=== PATIENT | female | born 1950 | race Caucasian/White ===

== ENCOUNTER 2016-07-21 16:07 | Outpatient (RCR) | payer MEDICARE, OTHER ==
[~2016-07-21 16:07] MED LIST: ACHD5005 PO; ACYC800T PO; ALPR.25T; ALPR1T PO; AMLO2.5T PO; ARIP10TA2 PO; ASP325TEC PO; ASPI-84 PO; BACL10TA PO; BISO1TAB3 PO; BISO1TAB39 PO; BPR150TCR; BUPR100T8 PO; BUPR150T6; BUPR200T PO; Bentyl; CEPHALEXIN; CHOL400C8 PO; CITA-105 PO; CITA40TA11 PO; CITA40TA19; CITA40TA19 PO; CLON1TAB3 PO; CLPD75T PO; CYAN500L PO; CYCL10TA9 PO; DESV100T PO; DICY10CA26 PO; DICY20TA57 PO; ESCT10T; FLAX100011 PO; GABA-531 PO; GABA600T2 PO; GBPN600T; GBPN600T PO; HYDR200T46 PO; HYDROXYCHLOROQUINE PO; IBP800T PO; IBUP-30 PO; IRB150T; ISM30TCR; L-ME15TA PO; LOSA100T28 PO; MAGN400C PO; MELA1TAB16 PO; NEBI5TAB8 PO; NF-DOCO10C TP; NITR-65; NTR.4SL SL; OLME20TA21 PO; OMEG1CAP51 PO; PREN-93 PO; SIMV20TA3 PO; SIMV40TA2 PO; SULF-222 PO; SULF500T7 PO; TRM50T PO; TRZ100T PO; UBID100C17 PO; VILA20TA PO; ZLP10T PO; [UNRECOGNIZED DRUG - OTHER]
== END 2016-10-19 | disposition home or self-care (01) ==
LOC: LAB 16:07
PROVIDERS: ATTEND Family Medicine
DX: R19.7 Diarrhea, unspecified (principal)
CPT/HCPCS: 87045; 87046

== ENCOUNTER → 2016-08-04 | Outpatient (CLI) | payer MEDICARE, OTHER ==
[2016-08-04 16:40] LABS: BASOPHILS % (AUTO) 0 % (0-10); EOSINOPHILS # (AUTO) 0.2 10^3/uL (0.0-0.3); EOSINOPHILS % (AUTO) 3 % (0-10); LYMPHOCYTES # (AUTO) 1.4 X 10^3 (1.0-4.0); LYMPHOCYTES % (AUTO) 16 % (12-44); MEAN CORPUSCULAR HEMOGLOBIN 33 PG (25-34); MEAN CORPUSCULAR HGB CONC 34 G/DL (32-36); MEAN CORPUSCULAR VOLUME 97 FL (80-99); MEAN PLATELET VOLUME 8.6 FL (7.4-10.4); MONOCYTES # (AUTO) 0.7 X 10^3 (0.0-1.0); MONOCYTES % (AUTO) 9 % (0-12); NEUTROPHILS # (AUTO) 6.2 X 10^3 (1.8-7.8); NEUTROPHILS % (AUTO) 72 % (42-75); PLATELET COUNT 264 10^3/uL (130-400); RED BLOOD COUNT 3.66 10^6/uL (4.35-5.85); RED CELL DISTRIBUTION WIDTH 12.6 % (10.0-14.5); WHITE BLOOD COUNT 8.5 10^3/uL (4.3-11.0)
[2016-08-04 16:56] LABS: CREATININE SERUM 0.82 MG/DL (0.60-1.30); hs C REACTIVE PROTEIN 0.2 MG/DL (0.00-0.50)
[2016-08-04 16:58] LABS: ERYTHROCYTE SEDIMENTATION RATE 6 MM/HR (0-30)
== END ==
LOC: LAB 16:23
DX: Z51.81 Encounter for therapeutic drug level monitoring (principal); M19.90 Unspecified osteoarthritis, unspecified site; Z79.899 Other long term (current) drug therapy
CPT/HCPCS: 36415; 82565; 84460; 85025; 85652; 86141

== ENCOUNTER → 2016-08-11 | Outpatient (CLI) | payer MEDICARE, OTHER | LOC: LAB 11:53 | PROVIDERS: ATTEND Family Medicine | DX: R05 Cough (principal); J34.89 Other specified disorders of nose and nasal sinuses; R19.7 Diarrhea, unspecified ==

== ENCOUNTER 2016-08-12 16:15 | Outpatient (RCR) | payer MEDICARE, OTHER | END 2016-11-10 | disposition home or self-care (01) | LOC: LAB 16:15 | PROVIDERS: ATTEND Family Medicine | DX: R19.7 Diarrhea, unspecified (principal) | CPT/HCPCS: 87045; 87046; 87324; 87449 ==

== ENCOUNTER → 2016-08-12 | Outpatient (CLI) | payer MEDICARE, OTHER ==
--- NOTE | 2016-08-12 17:25 | Diagnostic Imaging Report ---
INDICATION: Cough and wheezing. PA and lateral chest obtained at 5:06 p.m. and compared to 01/15/16. FINDINGS: Heart and mediastinal silhouette are normal in appearance. The lungs are clear. There is no pneumothorax or pleural fluid. IMPRESSION: Negative chest. Dictated by: Dictated on workstation # [id number]
--- NOTE | 2016-08-12 18:00 | Diagnostic Imaging Report ---
INDICATION: Sinus pressure and pain. Three views of the sinuses are obtained. FINDINGS: The frontal sinuses appear clear. Ethmoid air cells appear clear. The maxillary sinuses are clear. Sphenoid sinuses are also clear. There is no overt bony abnormality. IMPRESSION: Negative sinus series. Dictated by: Dictated on workstation # [id number]
== END ==
LOC: RAD 16:24
PROVIDERS: ATTEND Family Medicine
DX: R05 Cough (principal); J34.89 Other specified disorders of nose and nasal sinuses
CPT/HCPCS: 70220; 71020

== ENCOUNTER → 2016-09-01 | Outpatient (CLI) | payer MEDICARE, OTHER ==
[2016-09-01 10:05] LABS: BASOPHILS % (AUTO) 0 % (0-10); EOSINOPHILS # (AUTO) 0.1 10^3/uL (0.0-0.3); EOSINOPHILS % (AUTO) 2 % (0-10); LYMPHOCYTES # (AUTO) 1.6 X 10^3 (1.0-4.0); LYMPHOCYTES % (AUTO) 29 % (12-44); MEAN CORPUSCULAR HEMOGLOBIN 32 PG (25-34); MEAN CORPUSCULAR HGB CONC 34 G/DL (32-36); MEAN CORPUSCULAR VOLUME 94 FL (80-99); MEAN PLATELET VOLUME 8.9 FL (7.4-10.4); MONOCYTES # (AUTO) 0.6 X 10^3 (0.0-1.0); MONOCYTES % (AUTO) 11 % (0-12); NEUTROPHILS # (AUTO) 3.1 X 10^3 (1.8-7.8); NEUTROPHILS % (AUTO) 58 % (42-75); PLATELET COUNT 267 10^3/uL (130-400); RED BLOOD COUNT 3.96 10^6/uL (4.35-5.85); RED CELL DISTRIBUTION WIDTH 12.7 % (10.0-14.5); WHITE BLOOD COUNT 5.4 10^3/uL (4.3-11.0)
[2016-09-01 10:23] LABS: ALANINE AMINOTRANSFERASE 18 U/L (0-55); ALBUMIN 3.7 G/DL (3.2-4.5); ANION GAP 7 MMOL/L (5-14); ASPARTATE AMINO TRANSFERASE 25 U/L (5-34); BILIRUBIN,TOTAL 0.6 MG/DL (0.1-1.0); BLOOD UREA NITROGEN 13 MG/DL (7-18); BUN/CREATININE RATIO 16; CALCIUM 8.8 MG/DL (8.5-10.1); CARBON DIOXIDE 26 MMOL/L (21-32); CHLORIDE 103 MMOL/L (98-107); CREATININE SERUM 0.82 MG/DL (0.60-1.30); GFR ESTIMATED > 60; GLUCOSE 94 MG/DL (70-105); POTASSIUM 3.9 MMOL/L (3.6-5.0); SODIUM 136 MMOL/L (135-145); TOTAL PROTEIN 5.9 G/DL (6.4-8.2)
== END ==
LOC: LAB 09:39
PROVIDERS: ATTEND Family Medicine
DX: R19.7 Diarrhea, unspecified (principal)
CPT/HCPCS: 36415; 80053; 84443; 85025

== ENCOUNTER → 2017-01-07 | Outpatient (CLI) | payer MEDICARE, OTHER ==
[2017-01-07 16:04] LABS: MEAN PLATELET VOLUME 8.8 FL (7.4-10.4); RED BLOOD COUNT 3.47 10^6/uL (4.35-5.85); RED CELL DISTRIBUTION WIDTH 13.1 % (10.0-14.5); WHITE BLOOD COUNT 3.8 10^3/uL (4.3-11.0)
[2017-01-07 16:21] LABS: CREATININE SERUM 0.82 MG/DL (0.60-1.30); hs C REACTIVE PROTEIN 0.26 MG/DL (0.00-0.50)
== END ==
LOC: LAB 15:14
DX: M19.90 Unspecified osteoarthritis, unspecified site (principal); Z79.899 Other long term (current) drug therapy; Z51.81 Encounter for therapeutic drug level monitoring
CPT/HCPCS: 36415; 82565; 84460; 85027; 85652; 86141

== ENCOUNTER → 2017-03-30 | Outpatient (CLI) | payer MEDICARE, OTHER ==
[2017-03-30 13:51] LABS: BASOPHILS % (AUTO) 0 % (0-10); EOSINOPHILS # (AUTO) 0.1 10^3/uL (0.0-0.3); EOSINOPHILS % (AUTO) 1 % (0-10); LYMPHOCYTES # (AUTO) 1.3 X 10^3 (1.0-4.0); LYMPHOCYTES % (AUTO) 18 % (12-44); MEAN CORPUSCULAR HEMOGLOBIN 33 PG (25-34); MEAN CORPUSCULAR HGB CONC 34 G/DL (32-36); MEAN CORPUSCULAR VOLUME 97 FL (80-99); MEAN PLATELET VOLUME 9.1 FL (7.4-10.4); MONOCYTES # (AUTO) 0.7 X 10^3 (0.0-1.0); MONOCYTES % (AUTO) 10 % (0-12); NEUTROPHILS # (AUTO) 5.3 X 10^3 (1.8-7.8); NEUTROPHILS % (AUTO) 72 % (42-75); PLATELET COUNT 280 10^3/uL (130-400); RED BLOOD COUNT 3.77 10^6/uL (4.35-5.85); RED CELL DISTRIBUTION WIDTH 14.3 % (10.0-14.5); WHITE BLOOD COUNT 7.4 10^3/uL (4.3-11.0)
[2017-03-30 14:13] LABS: ALANINE AMINOTRANSFERASE 17 U/L (0-55); ANION GAP 6 MMOL/L (5-14); ASPARTATE AMINO TRANSFERASE 18 U/L (5-34); BILIRUBIN,TOTAL 1.3 MG/DL (0.1-1.0); BLOOD UREA NITROGEN 13 MG/DL (7-18); BUN/CREATININE RATIO 17; CALCIUM 9.2 MG/DL (8.5-10.1); CARBON DIOXIDE 31 MMOL/L (21-32); CHLORIDE 98 MMOL/L (98-107); CHOLESTEROL 187 MG/DL (< 200); CREATININE SERUM 0.76 MG/DL (0.60-1.30); DIRECT LDL 97 MG/DL (1-129); GFR ESTIMATED > 60; GLUCOSE 92 MG/DL (70-105); MAGNESIUM 2.1 MG/DL (1.8-2.4); POTASSIUM 4.1 MMOL/L (3.6-5.0); SODIUM 135 MMOL/L (135-145); TOTAL PROTEIN 6.3 GM/DL (6.4-8.2); TRIGLYCERIDES 78 MG/DL (<150); VLDL CHOLESTEROL 16 MG/DL (5-40)
[2017-03-30 14:32] LABS: THYROID STIMULATING HORMONE 3.11 UIU/ML (0.35-4.94)
== END ==
LOC: LAB 13:28
PROVIDERS: ATTEND Internal Medicine Cardiovascular Disease
DX: E78.4 Other hyperlipidemia (principal); I25.10 Atherosclerotic heart disease of native coronary artery without angina pectoris; I65.23 Occlusion and stenosis of bilateral carotid arteries; I10 Essential (primary) hypertension; R42 Dizziness and giddiness
CPT/HCPCS: 36415; 80053; 80061; 83735; 84443; 85025

== ENCOUNTER → 2017-03-30 | Outpatient (CLI) | payer MEDICARE, OTHER ==
[2017-03-30 14:30] LABS: MEAN PLATELET VOLUME 9.5 FL (7.4-10.4); RED BLOOD COUNT 3.81 10^6/uL (4.35-5.85); RED CELL DISTRIBUTION WIDTH 14.3 % (10.0-14.5); WHITE BLOOD COUNT 7.9 10^3/uL (4.3-11.0)
[2017-03-30 14:36] LABS: CREATININE SERUM 0.76 MG/DL (0.60-1.30); hs C REACTIVE PROTEIN 0.06 MG/DL (0.00-0.50)
== END ==
LOC: LAB 14:13
DX: Z51.81 Encounter for therapeutic drug level monitoring (principal); M19.90 Unspecified osteoarthritis, unspecified site; Z79.899 Other long term (current) drug therapy
CPT/HCPCS: 36415; 82565; 84460; 85027; 85652; 86141

== ENCOUNTER → 2017-03-30 | Outpatient (CLI) | payer MEDICARE, OTHER ==
[~2017-03-30] MED LIST changes: +CATHETER FLUSH 10 ML SYR IV PRN; +REGADENOSON 0.4 MG/5 ML SYR (LEXISCAN) IV ONE
[2017-03-30 13:02] VITALS: BP 177/75
--- NOTE | 2017-03-31 18:55 | STRESS TEST ---
DATE OF SERVICE: 03/30/2017 RESTING AND POST REGADENOSON TECHNETIUM-99M TETROFOSMIN SPECT CT IMAGING ORDERING PHYSICIAN: ALINA Aviles PRIMARY PHYSICIAN: Dr. Frye. OTHER PHYSICIAN: Dr. Galan. CLINICAL DIAGNOSIS: Coronary artery disease. Baseline images were carried out after injection of 10.03 mCi of technetium-99m Tetrofosmin. This was followed by 0.4 mg regadenoson and 30 mCi of technetium-99m Tetrofosmin for stress imaging. The electrocardiogram showed sinus rhythm with nonspecific ST abnormality, which was subtle and which persisted throughout the study. The patient tolerated the procedure well and did not report significant symptoms. Review of images at rest and following stress does not indicate any significant perfusion defects consistent with myocardial ischemia or infarction. Gated images show normal global left ventricular systolic function with normal regional wall motion. Left ventricular ejection fraction is calculated to be 69%. Left ventricular end diastolic volume is 49 mL. TID is absent (1.1). CONCLUSIONS: 1. No evidence of any significant myocardial ischemia or infarction. 2. Normal regional wall motion. 3. Normal global left ventricular systolic function with a calculated ejection fraction of 69%. 4. Normal left ventricular cavity size. Job ID: [id number] DocumentID: [id number] Dictated Date: 03/31/2017 09:21:01 Protective Signal Installer Helper Date: 03/31/2017 09:43:25 Dictated By: CHAVEZ GALAN MD, MA, FACP, FACC,
== END ==
LOC: CARD 11:42
PROVIDERS: ATTEND Nurse Practitioner Family
DX: I25.10 Atherosclerotic heart disease of native coronary artery without angina pectoris (principal); I10 Essential (primary) hypertension; R07.89 Other chest pain
CPT/HCPCS: 78452; 93017

== ENCOUNTER 2017-05-22 08:05 | Observation (INO) | payer MEDICARE, OTHER ==
[~2017-05-22] VITALS: Ht 167.6 cm; Wt 87.5 kg
[~2017-05-22 08:05] MED LIST changes: -CATHETER FLUSH 10 ML SYR IV PRN; -REGADENOSON 0.4 MG/5 ML SYR (LEXISCAN) IV ONE
--- OUTSIDE RECORDS SUMMARY | 2017-05-22 08:12 | XMS REPORT | Continuity of Care Document ---
Author Author [employer] Organization [facility] Address Unknown Phone Unavailable Care Team Providers Care State Federal Relations Deputy Director Name Role Phone [employer] Unavailable Unavailable Problems Medications Allergies, Adverse Reactions, Alerts Immunizations Results Vital Signs Encounters Location Location Details Encounter Type Encounter Number Reason For Visit Attending Provider ADM Date DC Date Status Source OUTPATIENT [id number] RON MENSAH 11/27/20142014 Active [facility] OUTPATIENT [id number] RON MENSAH 01/31/20152014 Active [facility] OUTPATIENT [id number] BRAYAN AREVALO 04/05/20152014 Active [facility] OUTPATIENT [id number] Sarah FERREIRA 06/19/2015 06/19/2015 Active [facility] OUTPATIENT [id number] BRAYAN AREVALO 09/15/20162016 Active [facility] OUTPATIENT [id number] ROBBY GALLEGOS 02/11/2017 Active [facility] OUTPATIENT [id number] SALLY DORAN 03/29/2017 Active [facility] O RON MENSAH Active [facility] OP SURGERY [id number] BRIGETTE DALE Active [facility] Procedures Plan of Care Social History Assessment and Plan Family History Advance Directives Functional Status
--- OUTSIDE RECORDS SUMMARY | 2017-05-22 08:13 | XMS REPORT | Encounter Summary ---
Author Author [facility] Organization [facility] Address Unknown Phone Unavailable Care Team Providers Care Supply Chain Associate Name Role Phone PCP Unavailable Reason for Visit * Reason Comments Joint Pain Encounter Details Date Type Department Care Team Description 03/18/2017 Procedure visit [facility] Todd Howell MD Trochanteric bursitis of Physicians - Internal [address] right hip;Shoulder Medicine [place] 2025 arthritis;Bursitis [place] [address] [place] [address] [address] MED [phone] [place] [address] Social History Tobacco Use Types Packs/Day Years Used Date Never Smoker Smokeless Tobacco: Never Used Alcohol Use Drinks/Week oz/Week Comments No 0 Standard 0.0 drinks or equivalent Sex Assigned at Date Recorded Not on file as of this encounter Last Filed Vital Signs Vital Sign Reading Time Taken Blood Pressure 176/74 03/18/2017 1:19 PM PRO[employer]IVE [employer] Pulse 66 03/18/2017 1:19 PM PRO[employer]IVE [employer]ER AND [employer] Temperature 36.6 C (97.8 F) 03/18/2017 1:19 PM [employer]IVE [employer] AND [employer]TER Respiratory Rate 16 03/18/2017 1:10 PM [employer]IVE [employer] AND [employer] Oxygen Saturation - - Inhaled Oxygen - - Concentration Weight 86.2 kg (190 lb) 03/18/2017 1:10 PM [employer]IVE [employer] AND [employer]TER Height 167.6 cm (5' 5.98") 03/18/2017 1:10 PM [employer] AND [employer]TER Body Mass Index 30.68 03/18/2017 1:10 PM PROGRESSIVE ASSEMBLER AND FITTER in this encounter Instructions * Patient Instructions - Niharika Valadez MD - 03/18/2017 2:16 PM PRO[employer]IVE [employer]TER Please review the post injection handout. Rest the injected area for 48 hours. in this encounter Progress Notes * Niharika Valadez MD - 03/18/2017 1:00 PM PRO[employer]IVE [employer]TER Formatting of this note may be different from the original. Date of Service: 03/18/2017 Date of last Rheumatology encounter: 03/11/2017 Subjective: Margarette De Dios is a 66 y.o. 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 She has had moderate to severe polyarticular joint pain for the past month. No chills or fever. No anticoagulation. History of Present Illness Occupation: retired [employer] Questionnaire: 10 cm VAS (0=very well; 10.0=very poorly): Pt global: 5 Joint pain: 7 Fatigue: 9. Disability Index (Best=0.0; Worse=3.0): 1.5 Pt satisfaction (0-4; 0=very satisfied; 4=very dissatisfied): 3 Current rheumatic drugs: Methotrexate 20 mg weekly, folic acid daily, SSZ 1500 mg BID and HCQ 200 mg BID Taking antirheumatic meds as prescribed: Yes Review of Systems Constitutional: Positive for fatigue. Musculoskeletal: Positive for arthralgias. Symptoms all other systems reviewed and are negative. Objective: ALPRAZolam (XANAX) 1 mg PO tablet Take 1 mg by mouth as Needed. anxiety amLODIPine (NORVASC) 2.5 mg tablet Take 1 Tab by mouth daily. (Patient taking differently: Take by mouth twice daily. 2.5mg every morning and 1.25mg every night) aspirin EC 81 mg tablet Take 81 mg by mouth at bedtime daily. baclofen (LIORESAL) 10 mg tablet Take 2 Tabs by mouth three times daily. bisoprolol/hydrochlorothiazide (ZIAC) 5/6.25 mg tablet Take 1 Tab by mouth daily. citalopram (CELEXA) 40 mg tablet Take 40 mg by mouth Daily. colestipol (COLESTID) 1 gram tablet Take 1 g by mouth. dicyclomine (BENTYL) 10 mg capsule Take 10 mg by mouth As Needed. As directed folic acid (FOLVITE) 1 mg tablet Take 1 Tab by mouth daily. gabapentin (NEURONTIN) 600 mg tablet Take 2 Tabs by mouth Three Times Daily. hydroxychloroquine (PLAQUENIL) 200 mg tablet Take 1 Tab by mouth twice daily. Take with food. losartan(+) (COZAAR) 100 mg tablet Take 100 mg by mouth at bedtime daily. methotrexate sodium (RHEUMATREX) 2.5 mg tablet Take 8 tablets by mouth every 7 days. nitrofurantoin SR (MACROBID) 100 mg capsule Take 100 mg by mouth daily after breakfast. nitroglycerin (NITROSTAT) 0.4 mg tablet take 1 tablet under tongue every 5 minutes for chest pain, call 911 if no relief after 3 tablets PROPYLENE GLYCOL/PEG 400/PF (SYSTANE (PF) OP) Place into or around eye(s). simvastatin (ZOCOR) 20 mg tablet Take 1 Tab by mouth at bedtime daily. sulfaSALAzine (AZULFIDINE) 500 mg tablet TAKE THREE TABLETS BY MOUTH TWO TIMES A DAY WITH FOOD Vitals: 03/18/17 1310 03/18/17 1319 BP: 161/62 176/74 Pulse: 69 66 Resp: 16 Temp: 36.6 C (97.8 F) 36.6 C (97.8 F) TempSrc: Oral Oral Weight: 86.2 kg (190 lb) Height: 167.6 cm (65.98") Body mass index is 30.68 kg/(m^2)., Discussed patient's BMI with her. The body mass index is 30.68 kg/(m^2). and falls within the category of Obesity 1 (30 to <35); specialist visit only, referred back to Primary Care Provider for follow up. Wt Readings from Last 3 Encounters: 03/18/17 86.2 kg (190 lb) 03/11/17 87.5 kg (192 lb 12.8 oz) 02/09/17 91.6 kg (202 lb) ] Physical Exam Constitutional: She appears well-developed and well-nourished. HENT: Head: Normocephalic. Mouth/Throat: Oropharynx is clear and moist. Cardiovascular: Normal rate, regular rhythm and normal heart sounds. Pulmonary/Chest: Effort normal and breath sounds normal. Abdominal: Soft. Lymphadenopathy: She has no cervical adenopathy. She has no axillary adenopathy. Homunculus: No annotated images are attached to the encounter. TTP to right hip > left Limited ROm with internal and external rotation of right shoulder Assessment: 1. Trochanteric bursitis of right hip methylprednisolone acetate (DEPO-MEDROL) 80 mg/mL 80 mg, lidocaine PF 1% (10 mg/mL) 20 mg injectable mixture mepivacaine (PF)(+) (CARBOCAINE; POLOCAINE) injection 8 mL methylprednisolone acetate (DEPO-MEDROL) 80 mg/mL 80 mg, lidocaine PF 1% (10 mg /mL) 20 mg injectable mixture methylprednisolone acetate (DEPO-MEDROL) 80 mg/mL 160 mg, lidocaine PF 1% (10 mg/mL) 40 mg injectable mixture ARTHROCENTESIS-CLINIC DC ARTHROCENTESIS ASPIR&/INJ MAJOR JT/BURSA W/O US DC ARTHROCENTESIS ASPIR&/INJ MAJOR JT/BURSA W/O US DC ARTHROCENTESIS ASPIR&/INJ MAJOR JT/BURSA W/O US 2. Shoulder arthritis methylprednisolone acetate (DEPO-MEDROL) 80 mg/mL 80 mg, lidocaine PF 1% (10 mg/mL) 20 mg injectable mixture mepivacaine (PF)(+) (CARBOCAINE; POLOCAINE) injection 8 mL methylprednisolone acetate (DEPO-MEDROL) 80 mg/mL 80 mg, lidocaine PF 1% (10 mg /mL) 20 mg injectable mixture methylprednisolone acetate (DEPO-MEDROL) 80 mg/mL 160 mg, lidocaine PF 1% (10 mg/mL) 40 mg injectable mixture ARTHROCENTESIS-CLINIC DC ARTHROCENTESIS ASPIR&/INJ MAJOR JT/BURSA W/O US DC ARTHROCENTESIS ASPIR&/INJ MAJOR JT/BURSA W/O US DC ARTHROCENTESIS ASPIR&/INJ MAJOR JT/BURSA W/O US Right IA 3. Bursitis of right shoulder methylprednisolone acetate (DEPO-MEDROL) 80 mg/ mL 80 mg, lidocaine PF 1% (10 mg/mL) 20 mg injectable mixture mepivacaine (PF)(+) (CARBOCAINE; POLOCAINE) injection 8 mL methylprednisolone acetate (DEPO-MEDROL) 80 mg/mL 80 mg, lidocaine PF 1% (10 mg /mL) 20 mg injectable mixture methylprednisolone acetate (DEPO-MEDROL) 80 mg/mL 160 mg, lidocaine PF 1% (10 mg/mL) 40 mg injectable mixture ARTHROCENTESIS-CLINIC DC ARTHROCENTESIS ASPIR&/INJ MAJOR JT/BURSA W/O US DC ARTHROCENTESIS ASPIR&/INJ MAJOR JT/BURSA W/O US DC ARTHROCENTESIS ASPIR&/INJ MAJOR JT/BURSA W/O US Plan: 1. Region Injected: Right shoulder IA and right shoulder bursa injection. 2. Region Injected: Right hip bursa injection 3. Pt given postinjection instruction sheet. 4. Pt instructed to rest area for 48 hr. 5. Return visit: PRN. Next appointment on Future Appointments Date Time Provider Department Center 03/29/2017 4:00 PM Kip Robledo MD [facility] 06/18/2017 11:00 AM Raquel Lazaro MD [facility] IM 07/01/2017 2:30 PM Anselmo Cruz MD [facility] Ophthalm Orders Placed This Encounter ARTHROCENTESIS Injection Large Joint/Bursa W/O US Injection Large Joint/Bursa W/O US Injection Large Joint/Bursa W/O US methylprednisolone acetate (DEPO-MEDROL) 80 mg/mL 80 mg, lidocaine PF 1% ( 10 mg/mL) 20 mg injectable mixture mepivacaine (PF)(+) (CARBOCAINE; POLOCAINE) injection 8 mL methylprednisolone acetate (DEPO-MEDROL) 80 mg/mL 80 mg, lidocaine PF 1% ( 10 mg/mL) 20 mg injectable mixture methylprednisolone acetate (DEPO-MEDROL) 80 mg/mL 160 mg, lidocaine PF 1% ( 10 mg/mL) 40 mg injectable mixture Niharika Valadez MD - [id number] Rheuamtology Fellow - PGY4 Patient was seen and discussed with Dr. Howell Patient Instructions Please review the post injection handout. Rest the injected area for 48 hours. Return if symptoms worsen or fail to improve. Encounter Medications Medications methylprednisolone acetate (DEPO-MEDROL) 80 mg/mL 80 mg, lidocaine PF 1% ( 10 mg/mL) 20 mg injectable mixture mepivacaine (PF)(+) (CARBOCAINE; POLOCAINE) injection 8 mL Right IA shoulder methylprednisolone acetate (DEPO-MEDROL) 80 mg/mL 80 mg, lidocaine PF 1% ( 10 mg/mL) 20 mg injectable mixture methylprednisolone acetate (DEPO-MEDROL) 80 mg/mL 160 mg, lidocaine PF 1% ( 10 mg/mL) 40 mg injectable mixture ATTESTATION I personally performed the epstein portions of the E/M visit, discussed case with resident and concur with resident documentation of history, physical exam, assessment, and treatment plan unless otherwise noted. Staff name: Todd Howell MD Date: 04/03/2017 ATTESTATION The epstein portion of these procedures was performed in my presence. Staff name: Todd Howell MD Date: 04/03/2017 in this encounter Procedure Notes * Niharika Valadez MD - 03/18/2017 1:00 PM PROGRESSIVE ASSEM[employer]ER AND [employer]TER Associated Order(s): ARTHROCENTESIS-CLINIC Procedure(s): DC ARTHROCENTESIS ASPIR&/INJ MAJOR JT/BURSA W/O US Pre-Procedure Diagnose(s): Trochanteric bursitis of right hip; Shoulder arthritis; Bursitis of right shoulder Periarticular Injection(s) Consent was obtained Area was prepped in sterile manner. Location clarified for right patient, right location, and right medication. Location: Right shoulder IA injection and right shoulder bursa injection Injection: DepoMedrol 80 mg plus Lidocaine 20 mg for right shoulder IA and Mevecaine 80 mg DepoMedrol 80 mg plus Lidocaine 20 mg for right shoulder bursa Procedure done by: Niharika Valadez MD written post-injection instructions were given. Was attending physician present for the entire procedure? Yes Attending Physician: Todd Howell MD No complications before, during, or after the procedure. Hip Bursa Injection(s): Consent was obtained Area was prepped in sterile manner. Location clarified for right patient, right location, and right medication. Location: right trochanteric bursa Injection: DepoMedrol 160 mg plus Lidocaine 40 mg for each hip bursa. Procedure done by: Niharika Valadez MD Written post-injection instructions were given. Was attending physician present for the entire procedure? Yes Attending Physician: Todd Howell MD No complications before, during, or after the procedure. in this encounter Plan of Treatment Not on fileas of this encounter Procedures Procedure Name Priority Date/Time Associated Diagnosis Comments DC ARTHROCENTESIS Routine 03/18/2017 Trochanteric bursitis of Results for this ASPIR&/INJ MAJOR JT/BURSA 2:22 PM PROGRESSIVE ASSEM[employer]TER right hip procedure are in the W/O US Shoulder arthritis results section. Bursitis of right shoulder in this encounter Results * ARTHROCENTESIS-CLINIC (03/18/2017 2:22 PM) Specimen Performing Laboratory IN CLINIC Narrative Niharika Valadez MD 03/18/20172:22 PM Periarticular Injection(s) Consent was obtained Area was prepped in sterile manner. Location clarified for right patient, right location, and right medication. Location:Right shoulder IA injection and right shoulder bursa injection Injection: DepoMedrol 80 mg plus Lidocaine 20 mg for right shoulder IA and Mevecaine 80 mg DepoMedrol 80 mg plus Lidocaine 20 mg for right shoulder bursa Procedure done by: Niharika Valadez MD written post-injection instructions were given. Was attending physician present for the entire procedure? Yes Attending Physician: Todd Howell MD No complications before, during, or after the procedure. Hip Bursa Injection(s): Consent was obtained Area was prepped in sterile manner. Location clarified for right patient, right location, and right medication. Location:right trochanteric bursa Injection: DepoMedrol 160 mg plus Lidocaine 40 mg for each hip bursa. Procedure done by: Niharika Valadez MD Written post-injection instructions were given. Was attending physician present for the entire procedure? Yes Attending Physician: Todd Howell MD No complications before, during, or after the procedure. in this encounter Visit Diagnoses Diagnosis Trochanteric bursitis of right hip Enthesopathy of hip region Shoulder arthritis Unspecified arthropathy, shoulder region Bursitis of right shoulder Disorders of bursae and tendons in shoulder region, unspecified in this encounter Administered Medications Medication Order MAR Action Action Date Dose Rate Site mepivacaine (PF)(+) (CARBOCAINE; Given 03/18/2017 8 mL Shoulder, POLOCAINE) injection 8 mL 13:30 PRO[employer]IVE AS[employer]TER Right 8 mL (80 mg), Intra-articular, ONCE, 1 dose, Bárbara 03/18/17 at 1430, Right IA shoulder methylprednisolone acetate (DEPO-MEDROL) Given 03/18/2017 Hip, Right 80 mg/mL 160 mg, lidocaine PF 1% (10 13:45 PROGRESSIVE AS[employer]ER AND [employer]TER mg/mL) 40 mg injectable mixture 6 mL, Injection, ONCE, 1 dose, Bárbara 03/18/17 at 1430, Right hip bursa methylprednisolone acetate (DEPO-MEDROL) Given 03/18/2017 Shoulder, 80 mg/mL 80 mg, lidocaine PF 1% (10 13:35 PROGRESSIVE AS[employer]ER AND [employer]TER Right mg/mL) 20 mg injectable mixture 3 mL, Intra-articular, ONCE, 1 dose, Bárbara 03/18/17 at 1430, Right shoulder IA methylprednisolone acetate (DEPO-MEDROL) Given 03/18/2017 Shoulder, 80 mg/mL 80 mg, lidocaine PF 1% (10 13:40 PROGRESSIVE ASSEMBLER AND [employer]TER Right mg/mL) 20 mg injectable mixture 3 mL, Injection, ONCE, 1 dose, Bárbara 03/18/17 at 1430, Right shoulder bursa in this encounter
--- OUTSIDE RECORDS SUMMARY | 2017-05-22 08:13 | XMS REPORT | Encounter Summary ---
Author Author [facility] Organization [facility] Address Unknown Phone Unavailable Care Team Providers Care Butcher Head Name Role Phone PCP Unavailable Reason for Visit * Reason Comments Joint Pain Encounter Details Date Type Department Care Team Description 03/11/2017 Procedure visit [facility] Todd Howell MD Hand arthritis (Primary Physicians - Internal [address] Dx);Right hand Medicine [place] [address] pain;Inflammatory [address] [place] [address] [address] MED [phone] [place] [address] Social History Tobacco Use Types Packs/Day Years Used Date Never Smoker Smokeless Tobacco: Never Used Alcohol Use Drinks/Week oz/Week Comments No 0 Standard 0.0 drinks or equivalent Sex Assigned at Date Recorded Not on file as of this encounter Last Filed Vital Signs Vital Sign Reading Time Taken Blood Pressure 171/73 03/11/2017 1:14 PM [employer] SEWER Pulse 63 03/11/2017 1:14 PM [employer] Temperature 36.9 C (98.4 F) 03/11/2017 1:14 PM [employer] Respiratory Rate 18 03/11/2017 1:14 PM [employer] Oxygen Saturation 93% 03/11/2017 1:14 PM [employer] SEWER Inhaled Oxygen - - Concentration Weight 87.5 kg (192 lb 12.8 oz) 03/11/2017 1:14 PM [employer] SEW[employer] Height 167.6 cm (5' 5.98") 03/11/2017 1:14 PM [employer] Body Mass Index 31.13 03/11/2017 1:14 PM SHOES HAND SEWER in this encounter Instructions * Patient Instructions - Niharika Valadez MD - 03/11/2017 2:47 PM [employer] SEWER Please review the post injection handout. Rest the injected area for 48 hours. in this encounter Progress Notes * Niharika Valadez MD - 03/11/2017 1:00 PM [employer] Formatting of this note may be different from the original. Date of Service: 03/11/2017 Date of last Rheumatology encounter: 02/25/2017 Subjective: Margarette De Dios is a 66 y.o. 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 Disability Index (Best=0.0; Worse=3.0): 0.7 Pt satisfaction (0-4; 0=very satisfied; 4=very dissatisfied): 3 Current rheumatic drugs: Methotrexate 20 mg weekly, folic acid daily, SSZ 1500 mg BID and HCQ 200 mg BID Taking antirheumatic meds as prescribed: yes Review of Systems Constitutional: Positive for fatigue. HENT: Positive for congestion and hearing loss. Respiratory: Positive for cough and shortness of breath. Cardiovascular: Positive for leg swelling. Endocrine: Positive for polydipsia and polyphagia. Musculoskeletal: Positive for arthralgias, back pain, gait problem, joint swelling and myalgias. Psychiatric/Behavioral: Positive for dysphoric mood and sleep disturbance. The patient is nervous/anxious. All other systems reviewed and are negative Objective: ALPRAZolam (XANAX) 1 mg PO tablet [...] TWO TIMES A DAY WITH FOOD Vitals: 03/11/17 1314 BP: 171/73 Pulse: 63 Resp: 18 Temp: 36.9 C (98.4 F) TempSrc: Oral SpO2: 93% Weight: 87.5 kg (192 lb 12.8 oz) Height: 167.6 cm (65.98") Body mass index is 31.13 kg/(m^2)., Discussed patient's BMI with her. The body mass index is 31.13 kg/(m^2). and falls within the category of Obesity 1 (30 to <35); specialist visit only, referred back to Primary Care Provider for follow up. Wt Readings from Last 3 Encounters: 03/11/17 87.5 kg (192 lb 12.8 oz) 02/09/17 91.6 kg (202 lb) 10/08/16 87.9 kg (193 lb 12.8 oz) ] Physical Exam Constitutional: She appears well-developed and well-nourished. HENT: Head: Normocephalic. Mouth/Throat: Oropharynx is clear and moist. Cardiovascular: Normal rate, regular rhythm and normal heart sounds. Pulmonary/Chest: Effort normal and breath sounds normal. Abdominal: Soft. Lymphadenopathy: She has no cervical adenopathy. She has no axillary adenopathy. Homunculus: OA changes; heberden nodule Assessment: 1. Hand arthritis methylprednisolone acetate (DEPO-MEDROL) 80 mg/mL 24 mg, lidocaine PF 1% (10 mg/mL) 5 mg injectable mixture methylprednisolone acetate (DEPO-MEDROL) 80 mg/mL 16 mg, lidocaine PF 1% (10 mg /mL) 2 mg injectable mixture CA ARTHROCNT ASPIR&/INJ SMALL JT/BURSAW/US REC RPRT CA ARTHROCNT ASPIR&/INJ SMALL JT/BURSAW/US REC RPRT ARTHROCENTESIS-CLINIC Right 2nd MCP and right 1st CMC Plan: 1. Region Injected: Right 2nd MCP 2. Region Injected: Right 1st CMC 3. Pt given postinjection instruction sheet. 4. Pt instructed to rest area for 48 hr. 5. Return visit: PRN. Next appointment on Future Appointments Date Time Provider Department Center 03/18/2017 1:00 PM Todd Howell MD [facility] 03/29/2017 4:00 PM Kip Robledo MD [facility] 06/18/2017 11:00 AM Raquel Lazaro MD [facility] 07/01/2017 2:30 PM Anselmo Cruz MD [facility] Ophthalm Orders Placed This Encounter ARTHROCENTESIS Injection Small Joint Bursa W/ US Injection Small Joint Bursa W/ US methylprednisolone acetate (DEPO-MEDROL) 80 mg/mL 24 mg, lidocaine PF 1% ( 10 mg/mL) 5 mg injectable mixture methylprednisolone acetate (DEPO-MEDROL) 80 mg/mL 16 mg, lidocaine PF 1% ( 10 mg/mL) 2 mg injectable mixture Niharika Valadez MD - 5475 Rheuainology Fellow - PGY4 Patient was seen and discussed with Dr. Howell Patient Instructions Please review the post injection handout. Rest the injected area for 48 hours. Return if symptoms worsen or fail to improve. Encounter Medications Medications methylprednisolone acetate (DEPO-MEDROL) 80 mg/mL 24 mg, lidocaine PF 1% ( 10 mg/mL) 5 mg injectable mixture methylprednisolone acetate (DEPO-MEDROL) 80 mg/mL 16 mg, lidocaine PF 1% ( 10 mg/mL) 2 mg injectable mixture ATTESTATION I personally performed the epstein portions of the E/M visit, discussed case with resident and concur with resident documentation of history, physical exam, assessment, and treatment plan unless otherwise noted. Staff name: Todd Howell MD Date: 03/12/2017 ATTESTATION The epstein portion of these procedures was performed in my presence. Staff name: Todd Howell MD Date: 03/12/2017 in this encounter Procedure Notes * Niharika Valadez MD - 03/11/2017 1:00 PM [employer] Associated Order(s): CA ARTHROCNT ASPIR&/INJ SMALL JT/BURSAW/US REC RPRT Procedure(s): CA ARTHROCNT ASPIR&/INJ SMALL JT/BURSAW/US REC RPRT Pre-Procedure Diagnose(s): Hand arthritis Consent was obtained Area was prepped in sterile manner. Location clarified for right patient, right location, and right medication. Location: right hand Procedure: - Injection without aspiration. IA administration of DepoMedrol 24 mg+Lidocaine 5 mg for right IA first CMC - Injection without aspiration. IA administration of DepoMedrol 16 mg+Lidocaine 2 mg for right IA second MCP Procedure done by: Niharika Valadez MD written post-injection instructions were given. Was attending physician present for the entire procedure? Yes Attending Physician: Todd Howell MD No complications before, during, or after the procedure. Sonographic Needle Guidance: Instrument: [employer] NA Class C. Probe (Linear 10-18 MHz; Curvilinear 3-6 MHz): Linear Setting (MHz): 18 Musculoskeletal complaint(s): Moderately painful right MCP 2 and right CMC joints Reason(s) for examination: Evaluate for synovitis. Provide needle guidance. Area(s) examined: Dorsum and medial regions of MCP 2; dorsal and lateral regions of CMC 1 Standard Scans: Trv and Lgt scans of each area. Pathology identified and skin marked for injection. Findings: Photodocumentation: Yes. Measurements made: No Narrative Report: Clinical findings: Tender, slightly swollen MCP 2 and CMC 1 Ultrasound findings: MCP 2: Effusion small; vascularity grade 1/3; erosions: None. CMC 1: Effusion small to medium; vascularity grade 0/3; erosions: None. Postinjection findings: Conclusions: MCP 2:diffuse, faint IA crystalloid material. CMC 1: Diffuse, faint IA crystalloid material The imaging procedure was performed by Dr. Niharika Valadez MD, Fellow, with the assistance of Dr. Howell. I was present for the entire procedure.Todd Howell, in this encounter Plan of Treatment Name Priority Associated Diagnoses Order Schedule ARTHROCENTESIS-CLINIC Routine Hand arthritis Ordered: 03/11/2017 as of this encounter Visit Diagnoses Diagnosis Hand arthritis - Primary Unspecified arthropathy, hand Right hand pain Pain in limb Inflammatory arthritis Unspecified inflammatory polyarthropathy in this encounter Administered Medications Medication Order MAR Action Action Date Dose Rate Site methylprednisolone acetate (DEPO-MEDROL) Given 03/11/2017 Other 80 mg/mL 16 mg, lidocaine PF 1% ( 13:25 [employer]OES [employer]ER mg/mL) 2 mg injectable mixture 0.4 mL, Intra-articular, ONCE, 1 dose, Bárbara 03/11/17 at 1500, Right 2nd IA MCP methylprednisolone acetate (DEPO-MEDROL) Given 03/11/2017 Other 80 mg/mL 24 mg, lidocaine PF 1% ( 13:20 SHOES [employer] SEWER mg/mL) 5 mg injectable mixture 0.8 mL, Intra-articular, ONCE, 1 dose, Bárbara 03/11/17 at 1500, Right 1st IA CMC in this encounter
--- OUTSIDE RECORDS SUMMARY | 2017-05-22 08:13 | XMS REPORT | Encounter Summary ---
Author Author [facility] Organization [facility] Address Unknown Phone Unavailable Care Team Providers Care Bowl Turner Name Role Phone PCP Unavailable Encounter Details Date Type Department Care Team Description 04/05/2017 Orders Only [facility] Todd Howell MD Inflammatory arthritis Physicians - Internal [address] [facility] Medicine [address] [place] [address] [address] [facility] MED [phone] [place] [address] Social History Tobacco Use Types Packs/Day Years Used Date Never Smoker Smokeless Tobacco: Never Used Alcohol Use Drinks/Week oz/Week Comments No 0 Standard 0.0 drinks or equivalent Sex Assigned at Date Recorded Not on file as of this encounter Plan of Treatment Not on fileas of this encounter Results * CREATININE (03/30/2017) Component Value Ref Range Creatinine Specimen Performing Laboratory Blood OTHER OUTSIDE LAB * ALT (SGPT) (03/30/2017) Component Value Ref Range ALT (SGPT) Specimen Performing Laboratory Blood OTHER OUTSIDE LAB in this encounter Visit Diagnoses Diagnosis Inflammatory arthritis Unspecified inflammatory polyarthropathy in this encounter
--- OUTSIDE RECORDS SUMMARY | 2017-05-22 08:13 | XMS REPORT | Encounter Summary ---
Author Author [facility] Organization [facility] Address Unknown Phone Unavailable Care Team Providers Care Assistant Professor Of Communication Name Role Phone PCP Unavailable Encounter Details Date Type Department Care Team Description 03/31/2017 Orders Only [facility] Todd Howell MD Inflammatory Physicians - Internal [address] arthritis;Encounter for Medicine [place] [address] long-term (current) use [address] [place] [address] of high-risk [address] MED [phone] medication;Encounter for OFFICE B[place] [address] Social History Tobacco Use Types Packs/Day Years Used Date Never Smoker Smokeless Tobacco: Never Used Alcohol Use Drinks/Week oz/Week Comments No 0 Standard 0.0 drinks or equivalent Sex Assigned at Date Recorded Not on file as of this encounter Plan of Treatment Not on fileas of this encounter Results * CBC (03/30/2017) Component Value Ref Range White Blood Cells RBC Hemoglobin Hematocrit MCV MCH MCHC Platelet Count MPV RDW Specimen Performing Laboratory Blood OTHER OUTSIDE LAB * C REACTIVE PROTEIN (CRP) (03/30/2017) Component Value Ref Range C-Reactive Protein Specimen Performing Laboratory Blood OTHER OUTSIDE LAB * CREATININE (03/30/2017) Component Value Ref Range Creatinine Specimen Performing Laboratory Blood OTHER OUTSIDE LAB * ALT (SGPT) (03/30/2017) Component Value Ref Range ALT (SGPT) Specimen Performing Laboratory Blood OTHER OUTSIDE LAB in this encounter Visit Diagnoses Diagnosis Inflammatory arthritis Unspecified inflammatory polyarthropathy Encounter for long-term (current) use of high-risk medication Encounter for long-term (current) use of other medications Encounter for therapeutic drug monitoring in this encounter
--- OUTSIDE RECORDS SUMMARY | 2017-05-22 08:13 | XMS REPORT | Encounter Summary ---
Author Author [facility] Organization [facility] Address Unknown Phone Unavailable Care Team Providers Care Port Surveyor Name Role Phone PCP Unavailable Reason for Visit * Reason Comments Eye Problem Pt here for 6 month FUV, Hx long-term use of high-risk medication. Vision Change Pt sts [facility] is doing okay but reports a lot of eye strain after looking at her phone for long periods of time. Pt would like new gls rx today. Encounter Details Date Type Department Care Team Description 03/03/2017 Office [facility] Anselmo Cruz MD Encounter for long-term Physicians - [address] (current) use of Ophthalmology [place] [address] high-risk medication [address] [place] [address] (Primary Dx);Hyperopic 100 astigmatism of both [place], [place] eyes;Sjogren's syndrome, [phone] with unspecified organ [phone] involvement (HCC);Nuclear sclerosis of both eyes;Dry eyes, both eyes Social History Tobacco Use Types Packs/Day Years Used Date Never Smoker Smokeless Tobacco: Never Used Alcohol Use Drinks/Week oz/Week Comments No 0 Standard 0.0 drinks or equivalent Sex Assigned at Date Recorded Not on file as of this encounter Progress Notes * Anselmo Cruz MD - 03/03/2017 2:30 PM CDT There is no height or weight on file to calculate BMI. Assessment and Plan: Still taking hydroxychloroquine 400mg daily and feels it is helping. Field still smaller than expected but anout same as last but will follow more closely w/ field, nuclear sclerosis slowly worsening and refraction helps some so new rx but still blurred. Fundus exam shows no evidence of toxicity from use of hydroxychloroquine. Cont to monitor annabel 4 mo in this encounter Plan of Treatment Not on fileas of this encounter Visit Diagnoses Diagnosis Encounter for long-term (current) use of high-risk medication - Primary Encounter for long-term (current) use of other medications Hyperopic astigmatism of both eyes Sjogren's syndrome, with unspecified organ involvement (HCC) Nuclear sclerosis of both eyes Dry eyes, both eyes Tear film insufficiency, unspecified in this encounter
--- OUTSIDE RECORDS SUMMARY | 2017-05-22 08:13 | XMS REPORT | Encounter Summary ---
Author Author [facility] Organization [facility] Address Unknown Phone Unavailable Care Team Providers Care Schedule Planning Manager Name Role Phone PCP Unavailable Reason for Visit * Reason Comments Medication Refill Encounter Details Date Type Department Care Team Description 04/30/2017 Refill [facility] Todd Howell MD Physicians - Internal [address] [facility] Medicine [address] [place] [address] [address] [facility] MED [phone] [place] [address] Social History Tobacco Use Types Packs/Day Years Used Date Never Smoker Smokeless Tobacco: Never Used Alcohol Use Drinks/Week oz/Week Comments No 0 Standard 0.0 drinks or equivalent Sex Assigned at Date Recorded Not on file as of this encounter Miscellaneous Notes * Telephone Encounter - Wenceslao Hernandez RN - 05/04/2017 10:32 AM [facility] requesting a refill of MTX. Patient last seen 02/09/17. Follow up scheduled 06/18/[address] Lazaro. Last labs drawn on . Per last OV note , "Increase oral MTX to 8 tab/week". Refilling MTX per Rheumatology Standing Orders Protocol. in this encounter Plan of Treatment Not on fileas of this encounter Visit Diagnoses Not on filein this encounter
--- OUTSIDE RECORDS SUMMARY | 2017-05-22 08:13 | XMS REPORT | Encounter Summary ---
Author Author [facility] Organization [facility] Address Unknown Phone Unavailable Care Team Providers Care Assistant Merchandise Manager Name Role Phone PCP Unavailable Reason for Visit * Reason Comments Appointment Request cancellation Encounter Details Date Type Department Care Team Description 02/25/2017 Telephone [facility] Todd Howell MD Appointment Request Physicians - Internal [address] (cancellation) Medicine [address] [place] [address] [address] MED [phone] [place] [address] Social History Tobacco Use Types Packs/Day Years Used Date Never Smoker Smokeless Tobacco: Never Used Alcohol Use Drinks/Week oz/Week Comments No 0 Standard 0.0 drinks or equivalent Sex Assigned at Date Recorded Not on file as of this encounter Miscellaneous Notes * Telephone Encounter - Margarette Bright RN - 02/25/2017 10:03 AM CDT Pt called, lvm stating she would like to cancel apt for 02/25/17. Called pt back ; pt stated her left hip has calmed down. Pt states she will keep apts for 03/11 and 03/18, reviewed times. Pt agrees. Aline front end software engineer notified to cancel pt. in this encounter Plan of Treatment Not on fileas of this encounter Visit Diagnoses Not on filein this encounter
--- OUTSIDE RECORDS SUMMARY | 2017-05-22 08:13 | XMS REPORT | Clinical Summary ---
Author Author [facility] Organization [facility] Address Unknown Phone Unavailable Care Team Providers Care Amphibian Crewmember Name Role Phone PCP Unavailable Source Comments Some departments are not documenting in the electronic medical record. If you do not see the information that you expected, contact Release of Information in the Health Information Management department at [phone] for further assistance in locating additional records.[facility] Allergies Active Allergy Reactions Severity Noted Date Comments Lamotrigine SEE COMMENTS Medium 11/15/2009 Gave her the "jerks" Involuntary muscle spasms Amitriptyline Hcl 03/01/2009 Azithromycin 03/01/2009 Celecoxib 03/01/2009 Propoxyphene 03/01/2009 N-Acetaminophen Divalproex SEE COMMENTS 03/01/2009 Severe joint stiffness and severe gum disease Erythromycin 03/01/2009 Meperidine HALLUCINATIONS 03/01/2009 Morphine 03/01/2009 Ofloxacin 03/01/2009 Penicillins 03/01/2009 Desvenlafaxine SEE COMMENTS 01/14/2011 Tremors Muscle twitching Promethazine HALLUCINATIONS 03/01/2009 Tramadol 09/20/2009 Current Medications Prescription Sig. Disp. Refills Start End Date Status Date gabapentin (NEURONTIN) Take 2 Tabs by mouth Active 600 mg tablet Three Times Daily. citalopram (CELEXA) 40 mg Take 40 mg by mouth Active tablet Daily. dicyclomine (BENTYL) 10 Take 10 mg by mouth As Active mg capsule Needed. As directed nitroglycerin (NITROSTAT) take 1 tablet under Active 0.4 mg tablet tongue every 5 minutes for chest pain, call 911 if no relief after 3 tablets aspirin EC 81 mg tablet Take 81 mg by mouth at Active bedtime daily. ALPRAZolam (XANAX) 1 mg Take 1 mg by mouth as Active PO tablet Needed. anxiety bisoprolol/hydrochlorothi Take 1 Tab by mouth 90 Tab 3 04/29/20 Active azide (ZIAC) 5/6.25 mg daily. 12 tablet amLODIPine (NORVASC) 2.5 Take 1 Tab by mouth 90 Tab 3 08/16/19 Active mg tablet daily. 13 simvastatin (ZOCOR) 20 mg Take 1 Tab by mouth at 90 Tab 3 12/24/19 Active tabletIndications: bedtime daily. 13 Coronary artery disease nitrofurantoin SR Take 100 mg by mouth Active (MACROBID) 100 mg capsule daily after breakfast. losartan(+) (COZAAR) 100 Take 100 mg by mouth at Active mg tablet bedtime daily. PROPYLENE GLYCOL/PEG Place into or around Active 400/PF (SYSTANE (PF) OP) eye(s). colestipol (COLESTID) 1 Take 1 g by mouth. Active gram tablet baclofen (LIORESAL) 10 mg Take 2 Tabs by mouth 540 Tab 1 11/11/19 Active tablet three times daily. 17 hydroxychloroquine Take 1 Tab by mouth twice 180 Tab 1 11/12/19 Active (PLAQUENIL) 200 mg tablet daily. Take with food. 17 folic acid (FOLVITE) 1 mg Take 1 Tab by mouth 90 Tab 3 11/19/19 Active tablet daily. 17 sulfaSALAzine TAKE THREE TABLETS BY 540 tablet 1 02/13/20 Active (AZULFIDINE) 500 mg MOUTH TWO TIMES A DAY 17 tablet WITH FOOD methotrexate sodium TAKE 8 TABLETS BY MOUTH 64 tablet 1 05/04/19 Active (RHEUMATREX) 2.5 mg EVERY 7 DAYS. 18 tablet methotrexate sodium Take 8 tablets by mouth 32 tablet 2 02/13/20 Discontin (RHEUMATREX) 2.5 mg every 7 days. 17 17 ued tablet Active Problems Problem Noted Date Seronegative rheumatoid arthritis of multiple sites (HCC) 03/21/2017 Right hand pain 03/12/2017 Encounter for long-term (current) use of high-risk medication 07/19/2016 Encounter for therapeutic drug monitoring 07/19/2016 Tenosynovitis of hand 04/30/2016 Overview: FT2 Lateral epicondylitis (tennis elbow) 04/30/2016 Trochanteric bursitis 04/30/2016 Bursitis of knee 04/30/2016 Trigger ring finger of right hand 10/21/2015 Pain in both hands 10/11/2015 Carpal tunnel syndrome of right wrist 06/19/2015 Chest pain 06/19/2015 Chest tightness or pressure 06/19/2015 Chest pressure 06/19/2015 Hand arthritis 04/01/2015 Wrist arthritis 04/01/2015 Dry eyes, both eyes 01/09/2015 Hyperopic astigmatism of both eyes 01/09/2015 Nuclear sclerosis, both etes 01/09/2015 Erosive osteoarthritis of multiple sites 12/24/2014 Sjogren's disease (HCC) 12/24/2014 Low back pain at multiple sites 12/24/2014 Bilateral shoulder bursitis 11/30/2014 Encounter for long-term (current) use of medications 12/28/2013 Tenosynovitis 09/05/2010 Generalized osteoarthritis 09/05/2010 Joint pain 09/01/2010 Osteoarthritis of hand 09/01/2010 Hyperlipidemia 11/15/2009 Last Assessment & Plan: Most recent lipid profile 05/2007- will repeat, together with LFTs, prior to f/up visit. Pt continues on simvastatin 20mg QHS, dose unchanged. Hypertension 11/15/2009 Last Assessment & Plan: Currently well controlled on bisoprolol/HCTZ and irbesartan- repeat office check 120/75. Coronary artery disease due to lipid rich plaque 09/20/2009 Overview: A. Multiple intervention of RCA B. 04/29/08 - Adenosine Thallium - EF 71%; low likelihood of ischemia L ast Assessment & Plan: Patient concerned that recent hospitalization for UTI may have "damaged" the heart. Symptomatically unchanged, no cardiac sounding chest pain (pt describes one episode of sharp, very atypical-sounding chest discomfort recently), mild SOBOE (unchanged for over a year, more likely poor physical condition), denies any palpitations/dizziness/LOC. Pt reassured that recent UTI will not have any negative impact oh her heart. Will continue current cardiac medication; lipid profile and LFTs check prior to f/up appointment. Pt knows to report any new or worsening symptoms to our clinic or ER. During interview pt also admitted to occasionally using 8-10 tablets of ibuprofen for joint pain or headache. Potential consequences and dangers explained to the pt (incl. kidney injury, HTN, and further cardiac problems). Ms. De Dios stated that she would not take any more ibuprofen, unless recommended by a physician. Encounters Date Type Specialty Care Team Description 04/30/2017 Refill AllergyImmunology and Todd Howell MD Rheumatology 04/05/2017 Orders Only AllergyImmunology and Todd Howell MD Inflammatory arthritis Rheumatology 03/31/2017 Orders Only AllergyImmunology and Todd Howell MD Inflammatory Rheumatology arthritis;Encounter for long-term (current) use of high-risk medication;Encounter for therapeutic drug monitoring 03/18/2017 Procedure visit AllergyImmunology and Todd Howell MD Trochanteric bursitis of Rheumatology right hip;Shoulder arthritis;Bursitis of right shoulder 03/11/2017 Procedure visit AllergyImmunology and Todd Howell MD Hand arthritis (Primary Rheumatology Dx);Right hand pain;Inflammatory arthritis 03/03/2017 Office Visit Ophthalmology Anselmo Cruz MD Encounter for long-term (current) use of high-risk medication (Primary Dx);Hyperopic astigmatism of both eyes;Sjogren's syndrome, with unspecified organ involvement (HCC);Nuclear sclerosis of both eyes;Dry eyes, both eyes 02/25/2017 Telephone AllergyImmunology and Todd Howell MD Appointment Request Rheumatology (cancellation) from Last 3 Months Immunizations Name Dates Previously Given Next Due Flu Vaccine=>65 YO 02/09/2017 High-Dose (PF) Flu Vaccine Trivalent >64 02/17/2016 Yo High-dose (Preservative Free) Pneumococcal Vaccine 07/14/2016 (23-[facility] Adult) Pneumococcal 10/11/2015 Vaccine(13-[facility]/immunocompromised adult) Family History Medical History Relation Name Comments Cataract Brother Neurologic Disorder Father Coronary Artery Disease Mother Diabetes Mother Glaucoma Mother Hypertension Mother Stroke Mother Cancer Sister Patricia Neurologic Disorder Sister Patricia Cancer Sister Shalini Thyroid Disease Sister Krystle Amblyopia Neg Hx Autoimmune Disease Neg Hx Blindness Neg Hx Macular Degen Neg Hx Retinal Detachment Neg Hx Strabismus Neg Hx Relation Name Status Comments Brother Father Mother Sister Patricia Sister Shalini Sister Krystle Alive Sister Liz Alive Social History Tobacco Use Types Packs/Day Years Used Date Never Smoker Smokeless Tobacco: Never Used Tobacco Cessation: Counseling Given: Yes Alcohol Use Drinks/Week oz/Week Comments No 0 Standard 0.0 drinks or equivalent Sex Assigned at Date Recorded Not on file Last Filed Vital Signs Vital Sign Reading Time Taken Blood Pressure 176/74 03/18/2017 1:19 PM [employer] Pulse 66 03/18/2017 1:19 PM [employer] Temperature 36.6 C (97.8 F) 03/18/2017 1:19 PM [employer] Respiratory Rate 16 03/18/2017 1:10 PM [employer] Oxygen Saturation 93% 03/11/2017 1:14 PM [employer] Inhaled Oxygen - - Concentration Weight 86.2 kg (190 lb) 03/18/2017 1:10 PM [employer] Height 167.6 cm (5' 5.98") 03/18/2017 1:10 PM [employer] Body Mass Index 30.68 03/18/2017 1:10 PM [employer] Plan of Treatment Health Maintenance Due Date Last Done Comments PHYSICAL (COMPREHENSIVE) 12/19/1958 EXAM PERTUSSIS VACCINE 12/19/1962 TETANUS VACCINE 12/19/1968 BREAST CANCER SCREENING 1991 COLORECTAL CANCER 12/19/2001 SCREENING SHINGLES VACCINE 2011 OSTEOPOROSIS SCREENING 12/19/2016 PREVNAR/PNEUMOVAX (#2) 12/19/2017 07/14/2016, 10/11/2015 HEPATITIS C SCREENING Completed 02/14/2016 INFLUENZA VACCINE Completed 02/09/2017, 02/17/2016 Implants Implanted Type Area Director Learning Device Expiration Model / Identifier Date Serial / Lot Jnt Fngr Swnsn 2 Mcp Grmt Flxb Right: [employer]ius 06/03/2022 [id number] / Implanted: Qty: 1 on 08/08/2015 by [employer] GRP:[employer] 0000 / Sarah Wagner MD TECH [id number] Procedures Procedure Name Priority Date/Time Associated Diagnosis Comments FL ARTHROCENTESIS Routine 03/18/2017 Trochanteric bursitis of Results for this ASPIR&/INJ MAJOR JT/BURSA 2:22 PM [employer] right hip procedure are in the W/O US Shoulder arthritis results section. Bursitis of right shoulder from Last 3 Months Results * CBC (03/30/2017) Component Value Ref Range White Blood Cells RBC Hemoglobin Hematocrit MCV MCH MCHC Platelet Count MPV RDW Specimen Performing Laboratory Blood OTHER OUTSIDE LAB * C REACTIVE PROTEIN (CRP) (03/30/2017) Component Value Ref Range C-Reactive Protein Specimen Performing Laboratory Blood OTHER OUTSIDE LAB * ALT (SGPT) (03/30/2017) Only the most recent of 2 results within the time period is included. Component Value Ref Range ALT (SGPT) Specimen Performing Laboratory Blood OTHER OUTSIDE LAB * CREATININE (03/30/2017) Only the most recent of 2 results within the time period is included. Component Value Ref Range Creatinine Specimen Performing Laboratory Blood OTHER OUTSIDE LAB * ARTHROCENTESIS-CLINIC (03/18/2017 2:22 PM) Specimen Performing [...] complications before, during, or after the procedure. * FL ARTHROCNT ASPIR&/INJ SMALL JT/BURSAW/US REC RPRT (03/12/2017 10:11 PM) Specimen Performing Laboratory IN CLINIC Narrative Todd Howell MD 03/12/2017 10:11 PM Consent was obtained Area was prepped in sterile manner. Location clarified for right patient, right location, and right medication. Location: right hand Procedure: - Injection without aspiration. IA administration of DepoMedrol 24mg+Lidocaine 5 mg for right IA first CMC - Injection without aspiration. IA administration of DepoMedrol 16 mg+Lidocaine 2 mg for right IA second MCP Procedure done by: Niharika Valadez MD written post-injection instructions were given. Was attending physician present for the entire procedure? Yes Attending Physician: Todd Howell MD No complications before, during, or after the procedure. Sonographic Needle Guidance: Instrument: Stylefinch NA Class C. Probe (Linear 10-18 MHz; Curvilinear 3-6 MHz): Linear Setting (MHz): 18 Musculoskeletal complaint(s):Moderately painful right MCP 2 and right CMC joints Reason(s) for examination:Evaluate for synovitis.Provide needle guidance. Area(s) examined: Dorsum and medial regions of MCP 2; dorsal and lateral regions of CMC 1 Standard Scans: Trv and Lgt scans of each area. Pathology identified and skin marked for injection. Findings: Photodocumentation: Yes. Measurements made: No Narrative Report: Clinical findings: Tender, slightly swollen MCP 2 and CMC 1 Ultrasound findings: MCP 2: Effusion small; vascularity grade 1/3; erosions: None.CMC 1: Effusion small to medium; vascularity grade 0/3; erosions: None. Postinjection findings: Conclusions: MCP 2:diffuse, faint IA crystalloid material. CMC 1: Diffuse, faint IA crystalloid material The imaging procedure was performed by Dr. Niharika Valadez MD, Fellow, with the assistance of Dr. Howell. I was present for the entire procedure.Todd Howell, * SCAN COMP OPHTHAL DIAG IMG, POS SEG, RETINA (03/08/2017 1:45 PM) Only the most recent of 2 results within the time period is included. Specimen Performing Laboratory [facility] [address] [place] [id number] * VISUAL FIELD, LIMITED (03/03/2017 6:50 PM) Specimen Performing Laboratory [facility] [address] [place] [id number] from Last 3 Months
--- OUTSIDE RECORDS SUMMARY | 2017-05-22 08:14 | XMS REPORT ---
Author Author KATHLEEN CROUCH Organization [facility] Address [address] [place] [address] Care Team Providers Care Coronary Care Unit Nurse Name Role Phone KATHLEEN CROUCH Unavailable PROBLEMS Unknown Problems ALLERGIES Substance Reaction Event Type Date Status Pristiq Unknown Drug Allergy May, Active Penicillamine Unknown Drug Allergy May, Active Tramadol HCl Unknown Drug Allergy May, Active Promethazine HCl Unknown Drug Allergy May, Active Ofloxacin Unknown Drug Allergy May, Active Morphine Sulfate Unknown Drug Allergy May, Active Meperidine HCl Unknown Drug Allergy May, Active Lamictal Unknown Drug Allergy May, Active Erythromycin Unknown Drug Allergy May, Active Depakote Unknown Drug Allergy May, Active Darvocet A500 Unknown Drug Allergy May, Active Celebrex Unknown Drug Allergy May, Active Azithromycin Unknown Drug Allergy May, Active Amitriptyline HCl Unknown Drug Allergy May, Active SOCIAL HISTORY No smoking Hx information available PLAN OF CARE Activity Details Follow Up prn Reason: VITAL SIGNS Height 66 in 2016-05-23 Weight 194 lbs 2016-05-23 Temperature 98.4 degrees Fahrenheit 2016-05-23 Heart Rate 82 bpm 2016-05-23 Respiratory Rate 16 2016-05-23 BMI 31.31 kg/m2 2016-05-23 Blood pressure systolic 126 mmHg 2016-05-23 Blood pressure diastolic 78 mmHg 2016-05-23 MEDICATIONS Medication Instructions Dosage Frequency Start Date End Date Duration Status Folic Acid 1 MG Orally Once a day 1 tablet 24h Active Alprazolam 1 MG Orally Twice a day 1 tablet 12h Active Norvasc 2.5 MG Orally Once a day 1 tablet 24h Active Dicyclomine HCl 10 MG Active Losartan Potassium 100 MG Orally Once a day 1 tablet 24h Active Methotrexate 2.5 MG Active Citalopram Hydrobromide 40 MG Orally Once a day 0.5 tablet 24h Active Bisoprolol-Hydrochlorothiazide 5-6.25 MG Orally Once a day 1 tablet 24h Active Gabapentin 600 MG Orally Three times a day 1 tablet 8h Active Nitroglycerin 0.4 MG Active Aspirin Adult Low Dose 81 MG Orally Once a day 1 tablet 24h Active Hydroxychloroquine Sulfate 200 MG Orally Once a day 1 tablet with food or milk 24h Active Simvastatin 20 MG Orally Once a day 1 tablet in the evening 24h Active RESULTS Name Result Date Reference Range UA LONG DIP (IN HOUSE) 2016-05-23 Lot # [id number] Exp date 06/02/17 Clarity clear Color yellow Odor no GLU negative GARY negative KET negative SG >=1.030 BLO 6.0 pH Negative Protein Negative URO 0.2 NIT Negative PASCUAL Negative Lot # [id number] Exp date 06/2017 CULTURE, URINE 2016-05-23 Urine Culture, Routine Final report Result 1 No growth PROCEDURES Procedure Date Ordered Related Diagnosis Body Site URINALYSIS, AUTO, W/O SCOPE May 23, 2016 URINE CULTURE/COLONY COUNT May 23, 2016 SINGLE IMMUNIZATION ADMIN May 23, 2016 ZOSTER (ZOSTAVAX) May 23, 2016 Office Visit, Est Pt., Level 3 May 23, 2016 IMMUNIZATIONS Vaccine Route Administration Date Status ZOSTER (ZOSTAVAX) SC Subcutaneous May 23, 2016 Administered
--- OUTSIDE RECORDS SUMMARY | 2017-05-22 08:16 | XMS REPORT | Continuity of Care Document ---
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 (enzymatic activity/volume) - 17:52 Serum or plasma creatine kinase MB measurement (enzymatic activity/volume) 1.4 ng/mL <6.6 Serum or plasma troponin i.cardiac measurement (mass/volume) - 01/15/16 17:52 Serum or plasma troponin i.cardiac measurement (mass/volume) < ng/ mL <0.30 Serum or plasma amylase measurement (enzymatic activity/volume) - 01/15/16 17: 52 Serum or plasma amylase measurement (enzymatic activity/volume) 54 U /L 25-125 Lipase - 01/15/16 17:52 Lipase 31 U/L 8-78 Serum or plasma lithium measurement (moles/volume) - 01/15/16 17:52 BNP level 104.7 pg/mL <100.0 Serum or plasma troponin i.cardiac measurement (mass/volume) - 01/15/16 23:43 Serum or plasma troponin i.cardiac measurement (mass/volume) < ng/ mL <0.30 Myoglobin, serum - 01/15/16 23:43 Myoglobin, serum 71.0 ng/mL 10.0-92.0 Complete blood count (CBC) with automated white blood cell (WBC) differential - 01/16/16 03:43 Blood leukocytes automated count (number/volume) 5.4 10*3/uL 4.3-11.0 Blood erythrocytes automated count (number/volume) 3.90 10*6/uL 4.35-5.85 Venous blood hemoglobin measurement (mass/volume) 12.4 g/dL 11.5-16.0 Blood hematocrit (volume fraction) 35 % 35-52 Automated erythrocyte mean corpuscular volume 89 [foz_us] 80-99 Automated erythrocyte mean corpuscular hemoglobin (mass per erythrocyte) 32 pg 25-34 Automated erythrocyte mean corpuscular hemoglobin concentration measurement ( mass/volume) 36 g/dL 32-36 Automated erythrocyte distribution width ratio 12.1 % 10.0-14.5 Automated blood platelet count (count/volume) 274 10*3/uL 130-400 Automated blood platelet mean volume measurement 9.6 [foz_us] 7.4-10.4 Automated blood neutrophils/100 leukocytes 89 % 42-75 Automated blood lymphocytes/100 leukocytes 8 % 12-44 Blood monocytes/100 leukocytes 3 % 0-12 Automated blood eosinophils/100 leukocytes 0 % 0-10 Automated blood basophils/100 leukocytes 0 % 0-10 Blood neutrophils automated count (number/volume) 4.8 10*3 1.8-7.8 Blood lymphocytes automated count (number/volume) 0.5 10*3 1.0-4.0 Blood monocytes automated count (number/volume) 0.2 10*3 0.0-1.0 Automated eosinophil count 0.0 10*3/uL 0.0-0.3 Automated blood basophil count (count/volume) 0.0 10*3/uL 0.0-0.1 Comprehensive metabolic panel - 01/16/16 03:43 Serum or plasma sodium measurement (moles/volume) 133 mmol/L 135-145 Serum or plasma potassium measurement (moles/volume) 4.0 mmol/L 3.6-5.0 Serum or plasma chloride measurement (moles/volume) 101 mmol/L 98-107 Carbon dioxide 20 mmol/L 21-32 Serum or plasma anion gap determination (moles/volume) 12 mmol/L 5-14 Serum or plasma urea nitrogen measurement (mass/volume) 9 mg/dL 7-18 Serum or plasma creatinine measurement (mass/volume) 0.83 mg/dL 0.60-1.30 Serum or plasma urea nitrogen/creatinine mass ratio 11 NRG Serum or plasma creatinine measurement with calculation of estimated glomerular filtration rate > NRG Serum or plasma glucose measurement (mass/volume) 178 mg/dL 70-105 Serum or plasma calcium measurement (mass/volume) 9.3 mg/dL 8.5-10.1 Serum or plasma total bilirubin measurement (mass/volume) 1.1 mg/dL 0.1-1.0 Serum or plasma alkaline phosphatase measurement (enzymatic activity/volume) 75 U/L 40-136 Serum or plasma aspartate aminotransferase measurement (enzymatic activity/ volume) 20 U/L 5-34 Serum or plasma alanine aminotransferase measurement (enzymatic activity/volume ) 14 U/L 0-55 Serum or plasma protein measurement (mass/volume) 6.1 g/dL 6.4-8.2 Serum or plasma albumin measurement (mass/volume) 4.1 g/dL 3.2-4.5 Lipid 1996 panel - 01/16/16 03:43 Serum or plasma triglyceride measurement (mass/volume) 55 mg/dL <150 Serum or plasma cholesterol measurement (mass/volume) 177 mg/dL < 200 Serum or plasma cholesterol in HDL measurement (mass/volume) 58 mg/ dL 40-60 Cholesterol in LDL [mass/volume] in serum or plasma by direct assay 105 mg/dL 1-129 Serum or plasma cholesterol in VLDL measurement (mass/volume) 11 mg/ dL 5-40 Blood manual differential performed detection - 01/16/16 03:43 Blood monocytes/100 leukocytes 3 % NRG Manual blood segmented neutrophils/100 leukocytes 87 % NRG Blood band neutrophils/100 leukocytes 0 % NRG Manual blood lymphocytes/100 leukocytes 10 % NRG Manual eosinophils/100 leukocytes in nose 0 % NRG Manual blood basophils/100 leukocytes 0 % NRG Blood erythrocyte morphology finding identification NORMAL NRG Stool bacteria identification by culture - 07/27/16 09:54 Stool bacteria identification by culture N2 NRG Complete blood count (CBC) with automated white blood cell (WBC) differential - 08/04/16 16:34 Blood leukocytes automated count (number/volume) 8.5 10*3/uL 4.3-11.0 Blood erythrocytes automated count (number/volume) 3.66 10*6/uL 4.35-5.85 Venous blood hemoglobin measurement (mass/volume) 12.1 g/dL 11.5-16.0 Blood hematocrit (volume fraction) 36 % 35-52 Automated erythrocyte mean corpuscular volume 97 [foz_us] 80-99 Automated erythrocyte mean corpuscular hemoglobin (mass per erythrocyte) 33 pg 25-34 Automated erythrocyte mean corpuscular hemoglobin concentration measurement ( mass/volume) 34 g/dL 32-36 Automated erythrocyte distribution width ratio 12.6 % 10.0-14.5 Automated blood platelet count (count/volume) 264 10*3/uL 130-400 Automated blood platelet mean volume measurement 8.6 [foz_us] 7.4-10.4 Automated blood neutrophils/100 leukocytes 72 % 42-75 Automated blood lymphocytes/100 leukocytes 16 % 12-44 Blood monocytes/100 leukocytes 9 % 0-12 Automated blood eosinophils/100 leukocytes 3 % 0-10 Automated blood basophils/100 leukocytes 0 % 0-10 Blood neutrophils automated count (number/volume) 6.2 10*3 1.8-7.8 Blood lymphocytes automated count (number/volume) 1.4 10*3 1.0-4.0 Blood monocytes automated count (number/volume) 0.7 10*3 0.0-1.0 Automated eosinophil count 0.2 10*3/uL 0.0-0.3 Automated blood basophil count (count/volume) 0.0 10*3/uL 0.0-0.1 Serum or plasma creatinine measurement (mass/volume) - 08/04/16 16:34 Serum or plasma creatinine measurement (mass/volume) 0.82 mg/dL 0.60-1.30 Serum or plasma alanine aminotransferase measurement (enzymatic activity/volume ) - 08/04/16 16:34 Serum or plasma alanine aminotransferase measurement (enzymatic activity/volume ) 16 U/L 0-55 Serum or plasma C reactive protein measurement (mass/volume) - 08/04/16 16:34 Serum or plasma C reactive protein measurement (mass/volume) 0.20 mg /dL 0.00-0.50 Erythrocyte sedimentation rate by westergren method - 08/04/16 16:34 Erythrocyte sedimentation rate by westergren method 6 mm 0-30 [id number] - 08/12/16 17:05 RESULTS NEGATIVE FOR ANTIGEN AND TOXIN A/B [facility] Stool bacteria identification by culture - 08/12/16 17:05 Stool bacteria identification by culture N [facility] Complete blood count (CBC) with automated white blood cell (WBC) differential - 09/01/16 09:55 Blood leukocytes automated count (number/volume) 5.4 10*3/uL 4.3-11.0 Blood erythrocytes automated count (number/volume) 3.96 10*6/uL 4.35-5.85 Venous blood hemoglobin measurement (mass/volume) 12.5 g/dL 11.5-16.0 Blood hematocrit (volume fraction) 37 % 35-52 Automated erythrocyte mean corpuscular volume 94 [foz_us] 80-99 Automated erythrocyte mean corpuscular hemoglobin (mass per erythrocyte) 32 pg 25-34 Automated erythrocyte mean corpuscular hemoglobin concentration measurement ( mass/volume) 34 g/dL 32-36 Automated erythrocyte distribution width ratio 12.7 % 10.0-14.5 Automated blood platelet count (count/volume) 267 10*3/uL 130-400 Automated blood platelet mean volume measurement 8.9 [foz_us] 7.4-10.4 Automated blood neutrophils/100 leukocytes 58 % 42-75 Automated blood lymphocytes/100 leukocytes 29 % 12-44 Blood monocytes/100 leukocytes 11 % 0-12 Automated blood eosinophils/100 leukocytes 2 % 0-10 Automated blood basophils/100 leukocytes 0 % 0-10 Blood neutrophils automated count (number/volume) 3.1 10*3 1.8-7.8 Blood lymphocytes automated count (number/volume) 1.6 10*3 1.0-4.0 Blood monocytes automated count (number/volume) 0.6 10*3 0.0-1.0 Automated eosinophil count 0.1 10*3/uL 0.0-0.3 Automated blood basophil count (count/volume) 0.0 10*3/uL 0.0-0.1 Comprehensive metabolic panel - 09/01/16 09:55 Serum or plasma sodium measurement (moles/volume) 136 mmol/L 135-145 Serum or plasma potassium measurement (moles/volume) 3.9 mmol/L 3.6-5.0 Serum or plasma chloride measurement (moles/volume) 103 mmol/L 98-107 Carbon dioxide 26 mmol/L 21-32 Serum or plasma anion gap determination (moles/volume) 7 mmol/L 5-14 Serum or plasma urea nitrogen measurement (mass/volume) 13 mg/dL 7-18 Serum or plasma creatinine measurement (mass/volume) 0.82 mg/dL 0.60-1.30 Serum or plasma urea nitrogen/creatinine mass ratio 16 NRG Serum or plasma creatinine measurement with calculation of estimated glomerular filtration rate > NRG Serum or plasma glucose measurement (mass/volume) 94 mg/dL 70-105 Serum or plasma calcium measurement (mass/volume) 8.8 mg/dL 8.5-10.1 Serum or plasma total bilirubin measurement (mass/volume) 0.6 mg/dL 0.1-1.0 Serum or plasma alkaline phosphatase measurement (enzymatic activity/volume) 56 U/L 40-136 Serum or plasma aspartate aminotransferase measurement (enzymatic activity/ volume) 25 U/L 5-34 Serum or plasma alanine aminotransferase measurement (enzymatic activity/volume ) 18 U/L 0-55 Serum or plasma protein measurement (mass/volume) 5.9 g/dL 6.4-8.2 Serum or plasma albumin measurement (mass/volume) 3.7 g/dL 3.2-4.5 THYROID STIMULATING HORMONE - 09/01/16 09:55 THYROID STIMULATING HORMONE 2.90 u[iU]/mL 0.35-4.94 Automated blood complete blood count (hemogram) panel - 01/07/17 15:51 Blood leukocytes automated count (number/volume) 3.8 10*3/uL 4.3-11.0 Blood erythrocytes automated count (number/volume) 3.47 10*6/uL 4.35-5.85 Venous blood hemoglobin measurement (mass/volume) 11.2 g/dL 11.5-16.0 Blood hematocrit (volume fraction) 34 % 35-52 Automated erythrocyte mean corpuscular volume 97 [foz_us] 80-99 Automated erythrocyte mean corpuscular hemoglobin (mass per erythrocyte) 32 pg 25-34 Automated erythrocyte mean corpuscular hemoglobin concentration measurement ( mass/volume) 33 g/dL 32-36 Automated erythrocyte distribution width ratio 13.1 % 10.0-14.5 Automated blood platelet count (count/volume) 247 10*3/uL 130-400 Automated blood platelet mean volume measurement 8.8 [foz_us] 7.4-10.4 Serum or plasma creatinine measurement (mass/volume) - 01/07/17 15:51 Serum or plasma creatinine measurement (mass/volume) 0.82 mg/dL 0.60-1.30 Serum or plasma alanine aminotransferase measurement (enzymatic activity/volume ) - 01/07/17 15:51 Serum or plasma alanine aminotransferase measurement (enzymatic activity/volume ) 12 U/L 0-55 Serum or plasma C reactive protein measurement (mass/volume) - 01/07/17 15:51 Serum or plasma C reactive protein measurement (mass/volume) 0.26 mg /dL 0.00-0.50 Erythrocyte sedimentation rate by westergren method - 01/07/17 15:51 Erythrocyte sedimentation rate by westergren method 6 mm 0-30 Automated blood complete blood count (hemogram) panel - 03/30/17 13:43 Blood leukocytes automated count (number/volume) 7.9 10*3/uL 4.3-11.0 Blood erythrocytes automated count (number/volume) 3.81 10*6/uL 4.35-5.85 Venous blood hemoglobin measurement (mass/volume) 12.4 g/dL 11.5-16.0 Blood hematocrit (volume fraction) 37 % 35-52 Automated erythrocyte mean corpuscular volume 96 [foz_us] 80-99 Automated erythrocyte mean corpuscular hemoglobin (mass per erythrocyte) 33 pg 25-34 Automated erythrocyte mean corpuscular hemoglobin concentration measurement ( mass/volume) 34 g/dL 32-36 Automated erythrocyte distribution width ratio 14.3 % 10.0-14.5 Automated blood platelet count (count/volume) 295 10*3/uL 130-400 Automated blood platelet mean volume measurement 9.5 [foz_us] 7.4-10.4 Serum or plasma creatinine measurement (mass/volume) - 03/30/17 13:43 Serum or plasma creatinine measurement (mass/volume) 0.76 mg/dL 0.60-1.30 Serum or plasma alanine aminotransferase measurement (enzymatic activity/volume ) - 03/30/17 13:43 Serum or plasma alanine aminotransferase measurement (enzymatic activity/volume ) 17 U/L 0-55 Serum or plasma C reactive protein measurement (mass/volume) - 03/30/17 13:43 Serum or plasma C reactive protein measurement (mass/volume) 0.06 mg /dL 0.00-0.50 Erythrocyte sedimentation rate by westergren method - 03/30/17 13:43 Erythrocyte sedimentation rate by westergren method 2 mm 0-30 Encounters ACCT No. Visit Date/Time Discharge Status Pt. Type Provider Facility Loc./Unit Complaint [id number] 03/30/2017 14:13:00 03/30/2017 23:59:59 CLS Outpatient RON MENSAH MD Via [facility] LAB M19.90 [id number] 03/30/2017 13:28:00 03/30/2017 23:59:59 CLS Outpatient CHAVEZ LR MD, FACC, FACP CCDS [facility] LAB I25.10,I65.23, I10,E78.4,R42 [id number] 03/30/2017 11:42:00 03/30/2017 23:59:59 CLS Outpatient YAO ARREDONDO [facility] CARD CAD I25.10 [id number] 03/02/2017 10:00:00 03/02/2017 23:59:59 CLS Preadmit CHAVEZ LR MD, FACC, FACP CCDS [facility] CATH CHEST PAIN, CAD [id number] 01/07/2017 15:14:00 01/07/2017 23:59:59 CLS Outpatient RON MENSAH MD [facility] LAB CRP,CBC [id number] 11/11/2016 00:12:00 11/11/2016 23:59:59 CLS Preadmit WILSON GEIGER MD [facility] LAB ACUTE DIARRHEA [id number] 08/12/2016 16:15:00 11/10/2016 00:01:00 DIS Outpatient WILSON GEIGER MD [facility] LAB ACUTE DIARRHEA [id number] 10/20/2016 00:18:00 10/20/2016 23:59:59 CLS Preadmit WILSON GEIGER MD R [facility] LAB ACUTE DIARRHEA [id number] 07/21/2016 16:07:00 10/19/2016 00:01:00 DIS Outpatient WILSON GEIGER MD R [facility] LAB ACUTE DIARRHEA [id number] 09/01/2016 09:39:00 09/01/2016 23:59:59 CLS Outpatient WILSON GEIGER MD [facility] LAB R19.7 [id number] 08/12/2016 16:24:00 08/12/2016 23:59:59 CLS Outpatient WILSON GEIGER MD [facility] RAD FRONTAL SINUS PAIN, PRODUCTIVE COUGH [id number] 08/11/2016 11:53:00 08/11/2016 23:59:59 CLS Outpatient WILSON GEIGER MD R [facility] LAB FRONTAL SINUS PAIN,ACUTE DIARRHEA [id number] 08/04/2016 16:23:00 08/04/2016 23:59:59 CLS Outpatient RON MENSAH MD [facility] LAB 714.9 [id number] 01/15/2016 19:22:00 01/16/2016 09:30:00 DIS Inpatient WILSON GEIGER MD [facility] ICU CHEST PAIN [id number] 08/05/2015 11:20:00 08/05/2015 23:59:59 CLS Outpatient BE CADET FACC, ALI FACP CCDS [facility] CARD CHEST PAIN, CAD [id number] 12/31/2014 16:15:00 01/30/2015 00:01:00 DIS Outpatient RON MENSAH MD [facility] LAB OSTEOARTHRITIS OF MULTIPLE JOINTS,HIGH RISK MED [id number] 10/01/2014 14:04:00 10/01/2014 23:59:59 CLS Outpatient WILSON GEIGER MD [facility] RAD LUMP ON RT BREAST [id number] 09/21/2014 10:30:00 09/21/2014 23:59:59 CLS Preadmit KENZIE CADET, GISELA Quintin [facility] CARD DDD [id number] 08/01/2014 12:45:00 08/01/2014 23:59:59 CLS Outpatient ROCHELLE DELEON MD [facility] RAD RECURRING UTI [id number] 08/16/2013 18:06:00 08/16/2013 23:59:59 CLS Outpatient YAO ARREDONDO [facility] RT DIZZINESS,SOB, [id number] 05/17/2013 00:06:00 05/17/2013 02:23:00 DIS Emergency CHRISSY CADET, ARIN Davis [facility] ER FELL OFF PORCH,HEAD INJURY [id number] 02/16/2013 06:03:00 02/16/2013 11:40:00 DIS Outpatient BBO MORENO DO [facility] SDC POST MENOPAUSAL BLEEDING;SEVERE ANXIETY [id number] 02/15/2013 14:50:00 02/15/2013 23:59:59 CLS Outpatient BOB MORENO DO [facility] PREOP POST MENOPAUSAL BLEEDING; SEVERE ANXIETY [id number] 01/20/2013 08:30:00 01/21/2013 18:00:00 DIS Outpatient BE CADET FACC, CHAVEZ TAVERAS CCDS [facility] CATH CHEST PAIN [id number] 11/08/2012 20:07:00 11/08/2012 21:01:00 DIS Emergency RICARDO HERNANDEZ DO [facility] ER LT HAND/ARM TINGLING [id number] 10/22/2012 17:46:00 10/22/2012 18:58:00 DIS Emergency FRANSICO CADET, LUZ Dickerson [facility] ER LEFT HAND INJ [id number] 10/21/2012 10:58:00 10/21/2012 23:59:59 CLS Outpatient FELY CADET, WILSON Orosco [facility] RAD FALL L HAND [id number] 05/22/2017 08:08:00 ACT Emergency RIA CADET, MARIELA Arroyo [facility] ER FLU [id number] 08/01/2015 07:40:00 Document Registration [id number] 08/02/2014 14:44:00 Document Registration [id number] 11/10/2011 21:31:00 Document Registration [id number] 09/30/2011 16:59:00 Document Registration [id number] 08/16/2011 02:59:00 Document Registration [id number] 03/23/2011 14:56:00 Document Registration [id number] 02/19/2011 15:28:00 Document Registration [id number] 02/13/2011 12:45:00 Document Registration [id number] 01/28/2011 22:29:00 Document Registration [id number] 12/21/2010 02:59:00 Document Registration [id number] 08/28/2010 14:03:00 Document Registration
--- NOTE | 2017-05-22 09:14 | ED GI ---
General Chief Complaint: Abdominal/GI Problems Stated Complaint: FLU Nursing Triage Note: c/o n/v. patient reports she has had problems for 4 days. patient reports states that she was recently diagnosed with sinus infection and UTI and hasn't been able to take medication Sepsis Screen: No Definite Risk Source of Information: Patient Exam Limitations: No Limitations History of Present Illness Date Seen by Provider: May 22, 2017 Time Seen By Provider: 09:12 Initial Comments This 66-year-old white female presents with a four-day history of persistent nausea and vomiting. The patient has had a concurrent sinus infection and UTI. Patient has not been able take her medication for hypertension or infection. Allergies and Home Medications Allergies Coded Allergies: promethazine HCl (Unverified Allergy, Mild, 08/16/11) amitriptyline (Verified Allergy, Unknown, 06/22/06) azithromycin (Verified Allergy, Unknown, 06/22/06) celecoxib (Verified Allergy, Unknown, TAKES ASPIRIN AT HOME, 03/20/08) divalproex sodium (Verified Allergy, Unknown, 06/22/06) erythromycin base (Verified Allergy, Unknown, 06/22/06) meperidine (Verified Allergy, Unknown, 05/28/08) morphine (Verified Allergy, Unknown, 05/28/08) ofloxacin (Verified Allergy, Unknown, 06/22/06) penicillin G (Verified Allergy, Unknown, 06/22/06) promethazine (Verified Allergy, Unknown, 05/28/08) propoxyphene (Verified Allergy, Unknown, 01/10/08) lamotrigine (Unverified Adverse Reaction, Intermediate, BODY JERKS, ) Home Medications Acyclovir 800 Mg Tablet, 800 MG PO BID PRN for FEVER BLISTERS, (Reported) TAKES TWICE DAILY FOR 5 DAYS NEEDED FOR FEVER BLISTERS Alprazolam 1 Mg Tablet, 1 MG PO DAILY PRN for ANXIETY, (Reported) Amlodipine Besylate 2.5 Mg Tablet, 3.75 MG PO DAILY, (Reported) TAKE 1 & 1/2 (2.5MG) TABLET Aspirin 81 Mg Tablet.dr, 81 MG PO HS, (Reported) Baclofen 10 Mg Tablet, 10 MG PO DAILY PRN for MUSCLE SPASMS, (Reported) Bisoprolol Fumarate/Hctz 1 Each Tablet, 1 TAB PO DAILY, (Reported) Cholecalciferol (Vitamin D3) 400 Unit Capsule, 2 CAP PO HS, (Reported) Citalopram Hydrobromide 40 Mg Tablet, 40 MG PO DAILY, (Reported) Cyanocobalamin 500 Mcg Lozenge, 2 TAB PO DAILY, (Reported) Dicyclomine Hcl 20 Mg Tablet, 20 MG PO TID PRN for IBS, (Reported) Docosanol 1 Tube Cream.gm., TP TID PRN for FEVER BLISTERS, (Reported) Flaxseed 1,000 Mg Capsule, 3,000 MG PO HS, (Reported) TAKES 3 CAPSULES AT BEDTIME Gabapentin 600 Mg Tablet, 1,200 MG PO TID, (Reported) TAKES 2 (600MG) TABLETS Hydroxychloroquine Sulfate 200 Mg Tablet, 200 MG PO BID, (Reported) Ibuprofen 200 Mg Tablet, 400 MG PO TID PRN for PAIN, (Reported) TAKES 2 (200MG) TABLETS Losartan Potassium 100 Mg Tablet, 100 MG PO HS, (Reported) Magnesium Oxide 400 Mg Capsule, 400 MG PO BID, (Reported) Melatonin/Pyridoxine Hcl (B6) 1 Each Tablet, 5 MG PO HS PRN for SLEEP, (Reported ) Nitroglycerin 0.4 Mg Tab, SL UD PRN for CHEST PAIN, (Reported) 1 TAB EVERY 5 MINUTES X 3 DOSES NEEDED FOR CHEST PAIN Guadalupe-3 Fatty Acids/Fish Oil 1 Each Capsule, 3,000 MG PO HS, (Reported) TAKES 3 (1000MG) AT BEDTIME Vit/Fe Fumarate/Fa 1 Each Tablet, 1 TAB PO HS, (Reported) Simvastatin 20 Mg Tablet, 20 MG PO HS, (Reported) Sulfasalazine 500 Mg Tablet, 1,000 MG PO BID, (Reported) TAKES 2 (500MG) TABLETS Ubidecarenone 100 Mg Capsule, 100 MG PO HS, (Reported) Review of Systems Constitutional: chills, malaise, weakness EENTM: No Blurred Vision Respiratory: Cough Gastrointestinal: See HPI, Nausea, Vomiting Genitourinary: Denies Hematuria Musculoskeletal: No back pain Skin: No rash Psychiatric/Neurological: No Symptoms Reported Endocrine: No Symptoms Reported Hematologic/Lymphatic: No Symptoms Reported Past Zwckqwx-Bktgaj-Jlahte Hx Patient Social History Alcohol Use: Denies Use Recreational Drug Use: No Recent Foreign Travel: No Contact w/Someone Who Travel: No Recent Infectious Disease Expo: No Recent Hopitalizations: No Physical Abuse: No Sexual Abuse: No Immunizations Up To Date Tetanus Booster (TDap): Less than 5yrs PED Vaccines UTD: No Seasonal Allergies Seasonal Allergies: No Surgeries History of Surgeries: Yes (ANGIOPLASTY) Surgeries: Adenoidectomy, Appendectomy, Cardiac, Coronary Stent, Gallbladder, Orthopedic, Tonsillectomy Respiratory History of Respiratory Disorde: No Cardiovascular History of Cardiac Disorders: Yes (CARDIAC STENT X4, ANGIOPLASTY X 2; CAROTID DISEASE) Cardiac Disorders: Coronary Artery Disease, High Cholesterol Neurological History of Neurological Disord: No Reproductive System Hx Reproductive Disorders: Yes (unable to have children) SUPERINTENDENT METERS History: Menopausal Genitourinary Genitourinary Disorders: Bladder Infection Gastrointestinal History of Gastrointestinal Di: Yes (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) Gastrointestinal Disorders: Irritable Bowel Musculoskeletal History of Musculoskeletal Dis: Yes (CHRONIC GENREALIZED PAIN; MULTIPLE ORTHO PROCEDURES ON HANDS) Musculoskeletal Disorders: Arthritis, Fibromyalgia, Fractures Endocrine History of Endocrine Disorders: No HEENT Hearing Impairment: Hard of Hearing Cancer History of Cancer: No Psychosocial History of Psychiatric Problem: Yes Behavioral Health Disorders: Anxiety, Bipolar, Depression Suicide Risk Score: 0 Integumentary History of Skin or Integumenta: No Blood Transfusions History of Blood Disorders: No Adverse Reaction to a Blood Tr: No Reviewed Nursing Assessment Reviewed/Agree w Nursing PMH: Yes Family Medical History Significant Family History: No Pertinent Family Hx Physical Exam Vital Signs VS - Last 72 Hours, by Label 05/22/17 08:19 Temp 96.3 Pulse 77 Resp 18 B/P (MAP) 177/81 (113) Pulse Ox 96 Capillary Refill : Less Than 3 Seconds General Appearance: WD/WN, mild distress HEENT: normal ENT inspection Neck: non-tender, full range of motion, supple Respiratory: lungs clear, normal breath sounds, no respiratory distress Cardiovascular: normal peripheral pulses, regular rate, rhythm Gastrointestinal: normal bowel sounds, non tender, soft Extremities: normal range of motion, non-tender, normal inspection Back: normal inspection Neurologic/Psychiatric: no motor/sensory deficits, alert, normal mood/affect Skin: normal color, warm/dry, No rash Progress/Results/Core Measures Results/Orders Lab Results Laboratory Tests Test 05/22/17 08:50 Range/Units White Blood Count 8.8 4.3-11.0 10^3/uL Red Blood Count 3.43 L 4.35-5.85 10^6/uL Hemoglobin 11.7 11.5-16.0 G/DL Hematocrit 32 L 35-52 % Mean Corpuscular Volume 95 80-99 FL Mean Corpuscular Hemoglobin 34 25-34 PG Mean Corpuscular Hemoglobin Concent 36 32-36 G/DL Red Cell Distribution Width 12.2 10.0-14.5 % Platelet Count 360 130-400 10^3/uL Mean Platelet Volume 9.2 7.4-10.4 FL Neutrophils (%) (Auto) 81 H 42-75 % Lymphocytes (%) (Auto) 12 12-44 % Monocytes (%) (Auto) 6 0-12 % Eosinophils (%) (Auto) 0 0-10 % Basophils (%) (Auto) 0 0-10 % Neutrophils # (Auto) 7.2 1.8-7.8 X 10^3 Lymphocytes # (Auto) 1.1 1.0-4.0 X 10^3 Monocytes # (Auto) 0.6 0.0-1.0 X 10^3 Eosinophils # (Auto) 0.0 0.0-0.3 10^3/uL Basophils # (Auto) 0.0 0.0-0.1 10^3/uL Sodium Level 130 L 135-145 MMOL/L Potassium Level 3.7 3.6-5.0 MMOL/L Chloride Level 90 L 98-107 MMOL/L Carbon Dioxide Level 25 21-32 MMOL/L Anion Gap 15 H 5-14 MMOL/L Blood Urea Nitrogen 17 7-18 MG/DL Creatinine 0.97 0.60-1.30 MG/DL Estimat Glomerular Filtration Rate 58 BUN/Creatinine Ratio 18 Glucose Level 118 H 70-105 MG/DL Calcium Level 9.7 8.5-10.1 MG/DL Total Bilirubin 2.1 H 0.1-1.0 MG/DL Aspartate Amino Transf (AST/SGOT) 22 5-34 U/L Alanine Aminotransferase (ALT/SGPT) 13 0-55 U/L Alkaline Phosphatase 73 40-136 U/L Total Protein 6.9 6.4-8.2 GM/DL Albumin 4.4 3.2-4.5 GM/DL Lipase 26 8-78 U/L My Orders Orders - MARIELA ROLLINS MD Cbc With Automated Diff (05/22/17 09:09) Comprehensive Metabolic Panel (05/22/17 09:09) Lipase (05/22/17 09:09) Ua Culture If Indicated (05/22/17 09:09) Ns Iv 1000 Ml (Sodium Chloride 0.9%) (05/22/17 09:15) Ondansetron Injection (Zofran Injectio (05/22/17 09:15) Fentanyl Injection (Sublimaze Injection (05/22/17 09:15) Oseltamivir 75 Mg (10's) Caps (Tamiflu 7 (05/22/17 10:45) Medications Given in ED Current Medications Medications Dose Ordered Sig/Demario Route Start Time Stop Time Status Last Admin Dose Admin Fentanyl Citrate 50 mcg ONCE ONCE IVP 05/22/17 09:15 05/22/17 09:16 DC 05/22/17 09:24 50 MCG Ondansetron HCl 4 mg ONCE ONCE IVP 05/22/17 09:15 05/22/17 09:16 DC 05/22/17 09:24 4 MG Vital Signs/I&O Vital Sign - Last 12Hours 05/22/17 08:19 Temp 96.3 Pulse 77 Resp 18 B/P (MAP) 177/81 (113) Pulse Ox 96 Blood Pressure Mean: 113 Progress Note : Time: 10:45 Progress Note Despite the IV fluids and medications the patient felt too ill to go home. Dr. Stephenson was kind enough to admit the patient to observation. Departure Impression Impression: Primary Impression: Nausea and vomiting Qualified Codes: R11.2 - Nausea with vomiting, unspecified Disposition: ADMITTED INPATIENT Condition: Improved Admissions Decision to Admit Reason: Admit from ER (General) Decision to Admit/Date: May 22, 2017 Time/Decision to Admit Time: 10:54 Transfer Time Spoke to Accepting Phy: 10:[address] Stephenson. Departure-Patient Inst. Referrals: WILSON GEIGER MD (PCP/Family) Primary Care Physician MARIELA ROLLINS MD May 22, 2017 09:14
[2017-05-22] MEDS ORDERED: fentaNYL INJECTION 100 MCG/2 ML AMP IVP ONE (09:15)
[2017-05-22] MEDS ORDERED: ONDANSETRON 4 MG/2 ML (SDV) Z0FRAN IVP ONE (09:15)
[2017-05-22 09:18] LABS: BASOPHILS % (AUTO) 0 % (0-10); EOSINOPHILS % (AUTO) 0 % (0-10); HEMATOCRIT 32 % (35-52); HEMOGLOBIN 11.7 G/DL (11.5-16.0); LYMPHOCYTES # (AUTO) 1.1 X 10^3 (1.0-4.0); LYMPHOCYTES % (AUTO) 12 % (12-44); MEAN CORPUSCULAR HEMOGLOBIN 34 PG (25-34); MEAN CORPUSCULAR HGB CONC 36 G/DL (32-36); MEAN CORPUSCULAR VOLUME 95 FL (80-99); MEAN PLATELET VOLUME 9.2 FL (7.4-10.4); MONOCYTES # (AUTO) 0.6 X 10^3 (0.0-1.0); MONOCYTES % (AUTO) 6 % (0-12); NEUTROPHILS # (AUTO) 7.2 X 10^3 (1.8-7.8); NEUTROPHILS % (AUTO) 81 % (42-75); PLATELET COUNT 360 10^3/uL (130-400); RED BLOOD COUNT 3.43 10^6/uL (4.35-5.85); RED CELL DISTRIBUTION WIDTH 12.2 % (10.0-14.5); WHITE BLOOD COUNT 8.8 10^3/uL (4.3-11.0)
[2017-05-22] MEDS: NS IV 1000 ML 1,000 ML IV SCH ×4 (09:24→14:24)
[2017-05-22 09:30] LABS: ALBUMIN 4.4 GM/DL (3.2-4.5); BILIRUBIN,TOTAL 2.1 MG/DL (0.1-1.0); CALCIUM 9.7 MG/DL (8.5-10.1); CREATININE SERUM 0.97 MG/DL (0.60-1.30); POTASSIUM 3.7 MMOL/L (3.6-5.0); TOTAL PROTEIN 6.9 GM/DL (6.4-8.2)
[2017-05-22] MEDS ORDERED: OSELTAMIVIR 75 MG (TAMIFLU) BOX OF 10 PO ONE (10:45)
[2017-05-22] MEDS ORDERED: RX-OSELTAMIVIR 75 MG (TAMIFLU) BOX OF 10 PO ONE (10:52)
--- OUTSIDE RECORDS SUMMARY | 2017-05-22 11:06 | XMS REPORT | Continuity of Care Document ---
Author Author [employer] Organization [facility] Address Unknown Phone Unavailable Care Team Providers Care Meatman Name Role Phone [employer] Unavailable Unavailable Problems Medications Allergies, Adverse Reactions, Alerts Immunizations Results Vital Signs Encounters Location Location Details Encounter Type Encounter Number Reason For Visit Attending Provider ADM Date DC Date Status Source OUTPATIENT [id number] RON MENSAH 11/27/20142014 Active [facility] OUTPATIENT [id number] RON MENSAH 01/31/20152014 Active [facility] OUTPATIENT [id number] BRAYAN AREVALO 04/05/20152014 Active [facility] OUTPATIENT [id number] Sarah FERREIRA 06/19/2015 06/19/2015 Active [facility] OUTPATIENT [id number] BRAYAN AREVALO 09/15/20162016 Active [facility] OUTPATIENT [id number] ROBBY GALLEGOS 02/11/2017 Active [facility] OUTPATIENT [id number] SALLY DORAN 03/29/2017 Active [facility] O RON MENSAH Active [facility] OP SURGERY [id number] BRIGETTE DALE Active [facility] Procedures Plan of Care Social History Assessment and Plan Family History Advance Directives Functional Status
--- OUTSIDE RECORDS SUMMARY | 2017-05-22 11:07 | XMS REPORT | Encounter Summary ---
Author Author [facility] Organization [facility] Address Unknown Phone Unavailable Care Team Providers Care Sales Facilitator Name Role Phone PCP Unavailable Reason for Visit * Reason Comments Medication Refill Encounter Details Date Type Department Care Team Description 04/30/2017 Refill [facility] Todd Howell MD Physicians - Internal [address] [facility] [address] [place] [address] [address] [facility] [phone] [place] [address] Social History Tobacco Use Types Packs/Day Years Used Date Never Smoker Smokeless Tobacco: Never Used Alcohol Use Drinks/Week oz/Week Comments No 0 Standard 0.0 drinks or equivalent Sex Assigned at Date Recorded Not on file as of this encounter Miscellaneous Notes * Telephone Encounter - Wenceslao Hernandez RN - 05/04/2017 10:32 AM [facility] ATTENDANT Pharmacy requesting a refill of MTX. Patient [...]
--- OUTSIDE RECORDS SUMMARY | 2017-05-22 11:07 | XMS REPORT | Encounter Summary ---
Author Author [facility] Organization [facility] Address Unknown Phone Unavailable Care Team Providers Care Electrician Journeyman Wireman Name Role Phone PCP Unavailable Encounter Details Date Type Department Care Team Description 04/05/2017 Orders Only [facility] Todd Howell MD Inflammatory arthritis Physicians - Internal [address] [facility] Medicine [address] [place] [address] [address] [facility] MED [phone] [place] [address] Social History Tobacco Use Types [...]
--- OUTSIDE RECORDS SUMMARY | 2017-05-22 11:07 | XMS REPORT | Encounter Summary ---
Author Author [facility] Organization [facility] Address Unknown Phone Unavailable Care Team Providers Care Returns Supervisor Name Role Phone PCP Unavailable Reason for Visit * Reason Comments Appointment Request cancellation Encounter Details Date Type Department Care Team Description 02/25/2017 Telephone [facility] Todd Howell MD Appointment Request Physicians - Internal [address] (cancellation) Medicine [address] [place] [address] [phone] [place] [address] Social History Tobacco Use Types [...] and 03/18, reviewed times. Pt agrees. Aline patient coordinator front desk notified to cancel pt. in this encounter Plan of Treatment Not on fileas of this encounter Visit Diagnoses Not on filein this encounter
--- OUTSIDE RECORDS SUMMARY | 2017-05-22 11:07 | XMS REPORT | Encounter Summary ---
Author Author [facility] Organization [facility] Address Unknown Phone Unavailable Care Team Providers Care Oil Expeller Name Role Phone PCP Unavailable Encounter Details Date Type Department Care Team Description 03/31/2017 Orders Only [facility] Todd Howell MD Inflammatory Physicians - Internal [address] arthritis;Encounter for Medicine [place] [address] long-term (current) use [address] [place] [address] of high-risk [address] [phone] medication;Encounter for [place]ICE [place] [id number] Social History Tobacco Use [...]
--- OUTSIDE RECORDS SUMMARY | 2017-05-22 11:07 | XMS REPORT | Encounter Summary ---
Author Author [facility] Organization [facility] Address Unknown Phone Unavailable Care Team Providers Care Animal Shelter Worker Name Role Phone PCP Unavailable Reason for Visit * Reason Comments Joint Pain Encounter Details Date Type Department Care Team Description 03/11/2017 Procedure visit [facility] Todd Howell MD Hand arthritis (Primary Physicians - Internal [address] Dx);Right hand Medicine [address] pain;Inflammatory [address] [address] [address] [phone] [place] [address] Social History Tobacco Use Types Packs/Day Years Used Date Never Smoker Smokeless Tobacco: Never Used Alcohol Use Drinks/Week oz/Week Comments No 0 Standard 0.0 drinks or equivalent Sex Assigned at Date Recorded Not on file as of this encounter Last Filed Vital Signs Vital Sign Reading Time Taken Blood Pressure 171/73 03/11/2017 1:14 PM HOTEL SERVICE SUPERVISOR Pulse 63 03/11/2017 1:14 PM HOTEL SERVICE SUPERVISOR Temperature 36.9 C (98.4 F) 03/11/2017 1:14 PM HOTEL SERVICE SUPERVISOR Respiratory Rate 18 03/11/2017 1:14 PM HOTEL SERVICE SUPERVISOR Oxygen Saturation 93% 03/11/2017 1:14 PM HOTEL SERVICE SUPERVISOR Inhaled Oxygen - - Concentration Weight 87.5 kg (192 lb 12.8 oz) 03/11/2017 1:14 PM HOTEL SERVICE SUPERVISOR Height 167.6 cm (5' 5.98") 03/11/2017 1:14 PM HOTEL SERVICE SUPERVISOR Body Mass Index 31.13 03/11/2017 1:14 PM HOTEL SERVICE SUPERVISOR in this encounter Instructions * Patient Instructions - Niharika Valadez MD - 03/11/2017 2:47 PM HOTEL SERVICE SUPERVISOR Please review the post injection handout. Rest the injected area for 48 hours. in this encounter Progress Notes * Niharika Valadez MD - 03/11/2017 1:00 PM HOTEL SERVICE SUPERVISOR Formatting of this note may be different from the original. Date of Service: 03/11/2017 Date of last Rheumatology encounter: 02/25/2017 Subjective: Margarette De Dios is a 66 y.o. 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 Region Injected: Right 2nd MCP 2. Region Injected: Right 1st CMC 3. Pt given postinjection instruction sheet. 4. Pt instructed to rest area for 48 hr. 5. Return visit: PRN. Next appointment on Future Appointments Date Time Provider Department Center 03/18/2017 1:00 PM Todd Howell MD [facility] 03/29/2017 4:00 PM Kip Robledo MD [facility] 06/18/2017 11:00 AM Raquel Lazaro MD [facility] 07/01/2017 2:[address] [facility] Ophthalm Orders Placed This Encounter ARTHROCENTESIS Injection Small Joint Bursa W/ US Injection Small Joint Bursa W/ US methylprednisolone acetate (DEPO-MEDROL) 80 mg/mL 24 mg, lidocaine PF 1% ( 10 mg/mL) 5 mg injectable mixture methylprednisolone acetate (DEPO-MEDROL) 80 mg/mL 16 mg, lidocaine PF 1% ( 10 mg/mL) 2 mg injectable mixture Niharika Valadez MD - 6861 Rheuacoology Fellow - PGY4 Patient was seen and [...] Niharika Valadez MD - 03/11/2017 1:00 PM HOTEL SERVICE SUPERVISOR Associated Order(s): OR ARTHROCNT ASPIR&/INJ SMALL JT/BURSAW/US REC RPRT Procedure(s): OR ARTHROCNT ASPIR&/INJ SMALL JT/BURSAW/US REC RPRT Pre-Procedure [...] after the procedure. Sonographic Needle Guidance: Instrument: [employer] NA Class C. Probe (Linear 10-18 MHz; [...] 16 mg, lidocaine PF 1% ( 13:25 HOTEL SERVICE SUPERVISOR mg/mL) 2 mg injectable mixture 0.4 mL, Intra-articular, ONCE, 1 dose, Bárbara 03/11/17 at 1500, Right 2nd IA MCP methylprednisolone acetate (DEPO-MEDROL) Given 03/11/2017 Other 80 mg/mL 24 mg, lidocaine PF 1% ( 13:20 HOTEL SERVICE SUPERVISOR mg/mL) 5 mg injectable mixture 0.8 mL, Intra-articular, ONCE, 1 dose, Bárbara 03/11/17 at 1500, Right 1st IA CMC in this encounter
--- OUTSIDE RECORDS SUMMARY | 2017-05-22 11:07 | XMS REPORT | Encounter Summary ---
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
--- OUTSIDE RECORDS SUMMARY | 2017-05-22 11:07 | XMS REPORT | Clinical Summary ---
Author Author [facility] Organization [facility] Address Unknown Phone Unavailable Care Team Providers Care Postal Inspector Name Role Phone PCP Unavailable Source Comments Some departments are not documenting in the electronic medical record. If you do not see the information that you expected, contact Release of Information in the Health Information Management department at [phone] for further assistance in locating additional records.[facility] Allergies Active Allergy Reactions Severity Noted Date [...] Taken Blood Pressure 176/74 03/18/2017 1:19 PM MEDICAL HISTORIAN Pulse 66 03/18/2017 1:19 PM MEDICAL HISTORIAN Temperature 36.6 C (97.8 F) 03/18/2017 1:19 PM MEDICAL HISTORIAN Respiratory Rate 16 03/18/2017 1:10 PM MEDICAL HISTORIAN Oxygen Saturation 93% 03/11/2017 1:14 PM MEDICAL HISTORIAN Inhaled Oxygen - - Concentration Weight 86.2 kg (190 lb) 03/18/2017 1:10 PM MEDICAL HISTORIAN Height 167.6 cm (5' 5.98") 03/18/2017 1:10 PM MEDICAL HISTORIAN Body Mass Index 30.68 03/18/2017 1:10 PM MEDICAL HISTORIAN Plan of Treatment Health Maintenance Due Date Last Done Comments PHYSICAL (COMPREHENSIVE) 12/19/1958 EXAM PERTUSSIS VACCINE 12/19/1962 TETANUS VACCINE 12/19/1968 BREAST CANCER SCREENING 1991 COLORECTAL CANCER 12/19/2001 SCREENING SHINGLES VACCINE 2011 OSTEOPOROSIS SCREENING 12/19/2016 PREVNAR/PNEUMOVAX (#2) 12/19/2017 07/14/2016, 10/11/2015 HEPATITIS C SCREENING Completed 02/14/2016 INFLUENZA VACCINE Completed 02/09/2017, 02/17/2016 Implants Implanted Type Area Mortgage Lender Device Expiration Model / Identifier Date Serial / Lot Jnt Fngr Swnsn 2 Mcp Grmt Flxb Right: [employer] 06/03/2022 470- 0002 / Implanted: Qty: 1 on 08/08/2015 by [employer] GRP:[employer] MED 0000 / Sarah Wagner MD [id number] [id number] Procedures Procedure Name Priority Date/Time Associated Diagnosis Comments CT ARTHROCENTESIS Routine 03/18/2017 Trochanteric bursitis of Results for this ASPIR&/INJ MAJOR JT/BURSA 2:22 PM MEDICAL HISTORIAN right hip procedure are in the W/O [...] before, during, or after the procedure. * CT ARTHROCNT ASPIR&/INJ SMALL JT/BURSAW/US REC RPRT (03/12/2017 [...] after the procedure. Sonographic Needle Guidance: Instrument: [employer] NA Class C. Probe (Linear 10-18 MHz; [...] time period is included. Specimen Performing Laboratory cookdinner [address] [place] [phone] * VISUAL FIELD, LIMITED (03/03/2017 6:50 PM) Specimen Performing Laboratory [facility] [address] [place] [phone] from Last 3 Months
--- OUTSIDE RECORDS SUMMARY | 2017-05-22 11:07 | XMS REPORT | Encounter Summary ---
Author Author [facility] Organization [facility] Address Unknown Phone Unavailable Care Team Providers Care Business Asst Name Role Phone PCP Unavailable Reason for Visit * Reason Comments Joint Pain Encounter Details Date Type Department Care Team Description 03/18/2017 Procedure visit [facility] Todd Howell MD Trochanteric bursitis of Physicians - Internal [address] right hip;Shoulder Medicine [place] 2025 arthritis;Bursitis of [address] [place] [address] right shoulder [address] MED [phone] [place] [address] Social History Tobacco Use Types Packs/Day Years Used Date Never Smoker Smokeless Tobacco: Never Used Alcohol Use Drinks/Week oz/Week Comments No 0 Standard 0.0 drinks or equivalent Sex Assigned at Date Recorded Not on file as of this encounter Last Filed Vital Signs Vital Sign Reading Time Taken Blood Pressure 176/74 03/18/2017 1:19 PM [employer] Pulse 66 03/18/2017 1:19 PM [employer] Temperature 36.6 C (97.8 F) 03/18/2017 1:19 PM [employer] Respiratory Rate 16 03/18/2017 1:10 PM [employer] Oxygen Saturation - - Inhaled Oxygen - - Concentration Weight 86.2 kg (190 lb) 03/18/2017 1:10 PM [employer] Height 167.6 cm (5' 5.98") 03/18/2017 1:10 PM [employer] Body Mass Index 30.68 03/18/2017 1:10 PM [employer]ER in this encounter Instructions * Patient Instructions - Niharika Valadez MD - 03/18/2017 2:16 PM [employer] Please review the post injection handout. Rest the injected area for 48 hours. in this encounter Progress Notes * Niharika Valadez MD - 03/18/2017 1:00 PM [employer] Formatting of this note may be different [...] anticoagulation. History of Present Illness Occupation: retired [employer] Questionnaire: 10 cm VAS (0=very well; [...] (10 mg/mL) 40 mg injectable mixture ARTHROCENTESIS-CLINIC ME ARTHROCENTESIS ASPIR&/INJ MAJOR JT/BURSA W/O US ME ARTHROCENTESIS ASPIR&/INJ MAJOR JT/BURSA W/O US ME ARTHROCENTESIS ASPIR&/INJ MAJOR JT/BURSA W/O US 2. [...] (10 mg/mL) 40 mg injectable mixture ARTHROCENTESIS-CLINIC ME ARTHROCENTESIS ASPIR&/INJ MAJOR JT/BURSA W/O US ME ARTHROCENTESIS ASPIR&/INJ MAJOR JT/BURSA W/O US ME ARTHROCENTESIS ASPIR&/INJ MAJOR JT/BURSA W/O US Right [...] (10 mg/mL) 40 mg injectable mixture ARTHROCENTESIS-CLINIC ME ARTHROCENTESIS ASPIR&/INJ MAJOR JT/BURSA W/O US ME ARTHROCENTESIS ASPIR&/INJ MAJOR JT/BURSA W/O US ME ARTHROCENTESIS ASPIR&/INJ MAJOR JT/BURSA W/O US Plan: 1. Region Injected: Right shoulder IA and right shoulder bursa injection. 2. Region Injected: Right hip bursa injection 3. Pt given postinjection instruction sheet. 4. Pt instructed to rest area for 48 hr. 5. Return visit: PRN. Next appointment on Future Appointments Date Time Provider Department Center 03/29/2017 4:00 PM Kip Robledo MD [facility] 06/18/2017 11:00 AM Raquel Lazaro MD [facility] IM 07/01/2017 2:30 PM Anselmo Cruz MD [facility] Ophthalm Orders Placed This Encounter ARTHROCENTESIS [...] mg injectable mixture Niharika Valadez MD - [id number] Rheuamtology Fellow - PGY4 Patient was seen [...] Niharika Valadez MD - 03/18/2017 1:00 PM [employer] Associated Order(s): ARTHROCENTESIS-CLINIC Procedure(s): ME ARTHROCENTESIS ASPIR&/INJ MAJOR JT/BURSA W/O US Pre-Procedure [...] Procedure Name Priority Date/Time Associated Diagnosis Comments ME ARTHROCENTESIS Routine 03/18/2017 Trochanteric bursitis of Results for this ASPIR&/INJ MAJOR JT/BURSA 2:22 PM [employer] right hip procedure are in the [...] mL Shoulder, POLOCAINE) injection 8 mL 13:30 [employer] Right 8 mL (80 mg), Intra-articular, ONCE, 1 dose, Bárbara 03/18/17 at 1430, Right IA shoulder methylprednisolone acetate (DEPO-MEDROL) Given 03/18/2017 Hip, Right 80 mg/mL 160 mg, lidocaine PF 1% (10 13:45 RE[employer]ING [employer]ER mg/mL) 40 mg injectable mixture 6 mL, Injection, ONCE, 1 dose, Bárbara 03/18/17 at 1430, Right hip bursa methylprednisolone acetate (DEPO-MEDROL) Given 03/18/2017 Shoulder, 80 mg/mL 80 mg, lidocaine PF 1% (10 13:35 [employer]ER Right mg/mL) 20 mg injectable mixture 3 mL, Intra-articular, ONCE, 1 dose, Bárbara 03/18/17 at 1430, Right shoulder IA methylprednisolone acetate (DEPO-MEDROL) Given 03/18/2017 Shoulder, 80 mg/mL 80 mg, lidocaine PF 1% (10 13:40 RE[employer]ING [employer]ER Right mg/mL) 20 mg injectable mixture 3 mL, Injection, ONCE, 1 dose, Bárbara 03/18/17 at 1430, Right shoulder bursa in this encounter
--- OUTSIDE RECORDS SUMMARY | 2017-05-22 11:10 | XMS REPORT | Continuity of Care Document ---
Author Author [facility] Organization [facility] Address Unknown Phone Unavailable Allergies Active Description Code Type Severity Reaction Onset Reported/Identified Relationship to Patient Clinical Status Yes amitriptyline [id number] Drug Allergy Unknown N/A 06/22/2006 Yes azithromycin [id number] Drug Allergy Unknown N/A 06/22/2006 Yes divalproex sodium [id number] Drug Allergy Unknown N/A 06/22/2006 Yes erythromycin base [id number] Drug Allergy Unknown N/A 06/22/2006 Yes ofloxacin [id number] Drug Allergy Unknown N/A 06/22/2006 Yes penicillin G [id number] Drug Allergy Unknown N/A 06/22/2006 Yes propoxyphene [id number] Drug Allergy Unknown N/A 01/10/2008 Yes celecoxib [id number] Drug Allergy Unknown TAKES ASPIRIN A 03/20/2008 Yes meperidine [id number] Drug Allergy Unknown N/A 05/28/2008 Yes morphine [id number] Drug Allergy Unknown N/A 05/28/2008 Yes promethazine [id number] Drug Allergy Unknown N/A 05/28/2008 Yes lamotrigine [id number] Drug Allergy Moderate BODY JERKS 10/11/2009 Yes promethazine HCl [id number] Drug Allergy Mild N/A 08/16/2011 Medications There [...] FACP CCDS Ot 414.01 CORONARY ATHEROSCLEROSIS OF [place] CORON 01/21/2013 CHAVEZ LR MD, FACC FACP [...] OF [place] 01/21/2013 CHAVEZ LR MD, FACC [facility] CCDS Ot V58.69 OTH MED,LT,CURRENT USE 01/21/2013 BE CADET FACC, CHAVEZ [facility] CCDS Ot V85.33 BODY MASS INDEX [...] FELY CADET, WILSON R Ot V76.12 08/02/2014 [facility] DO, BOB S Ot 300.00 08/02/2014 [facility] DO, BOB S Ot 627.1 08/02/2014 [facility] DO, BOB S Ot V72.84 08/02/2014 BAIMA, YAO L COMPOSING ROOM MACHINIST Ot 272.4 08/02/2014 BAIMA, YAO L COMPOSING ROOM MACHINIST Ot 278.00 08/02/2014 BAIMA, YAO L COMPOSING ROOM MACHINIST Ot 296.50 08/02/2014 BAIMA, YAO L COMPOSING ROOM MACHINIST Ot 401.9 08/02/2014 BAIMA, YAO L COMPOSING ROOM MACHINIST Ot 414.00 08/02/2014 BAIMA, YAO L COMPOSING ROOM MACHINIST Ot 716.90 08/02/2014 BAIMA, YAO L COMPOSING ROOM MACHINIST Ot 780.4 08/02/2014 BAIMA, YAO L COMPOSING ROOM MACHINIST Ot 786.05 08/09/2014 ADRIENNE CADET, ROCHELLE A [...] 08/21/2015 Ot I25.10 ATHSCL HEART DISEASE OF [place] CORONARY 08/21/2015 Ot R07.89 OTHER CHEST PAIN 08/27/2015 BE CADET FAC, ALI FACP CCDS Ot E78.4 OTHER HYPERLIPIDEMIA 08/27/2015 BE CADET FAC, ALI FACP CCDS Ot I10 ESSENTIAL (PRIMARY) HYPERTENSION 08/27/2015 BE CADET FAC, ALI FACP CCDS Ot I25.10 ATHSCL HEART DISEASE OF [place] CORONARY 08/27/2015 BE CADET FAC, ALI FACP [...] EXAM PRE-OPERATIVE NOS 01/15/2016 ARNULFO, YAO L COMPOSING ROOM MACHINIST Ot 272.4 HYPERLIPIDEMIA NEC/NOS 01/15/2016 BAIMA, YAO L COMPOSING ROOM MACHINIST Ot 278.00 OBESITY, NOS 01/15/2016 BAIMA, YAO L COMPOSING ROOM MACHINIST Ot 296.50 BIPOL I, REC EPIS (OR CURRENT) DEPRESSED 01/15/2016 BAIMA, YAO L COMPOSING ROOM MACHINIST Ot 401.9 HYPERTENSION NOS 01/15/2016 BAIMA, YAO L COMPOSING ROOM MACHINIST Ot 414.00 CORON ATHEROSCLER NOS TYPE VESSEL, NATIV 01/15/2016 BAIMA, YAO L COMPOSING ROOM MACHINIST Ot 716.90 ARTHROPATHY NOS-UNSPEC 01/15/2016 BAIMA, YAO L COMPOSING ROOM MACHINIST Ot 780.4 DIZZINESS AND GIDDINESS 01/15/2016 BAIMA, YAO L COMPOSING ROOM MACHINIST Ot 786.05 SHORTNESS OF BREATH 01/15/2016 ADRIENNE CADET, ROCHELLE A Ot 599.0 URIN TRACT INFECTION NOS 01/15/2016 FELY CADET, WILSON R Ot 611.72 LUMP OR MASS IN BREAST 01/15/2016 WILSON GEIGER MD R Ot 793.82 INCONCLUSIVE MAMMOGRAM 01/15/2016 Ot E78.4 OTHER HYPERLIPIDEMIA 01/15/2016 Ot I10 ESSENTIAL ( PRIMARY) HYPERTENSION 01/15/2016 Ot I25.10 ATHSCL HEART DISEASE OF [place] CORONARY 01/15/2016 Ot R07.89 OTHER CHEST PAIN 01/15/2016 BE CADET FACC, CHAVEZ FACP CCDS Ot E78.4 OTHER HYPERLIPIDEMIA 01/15/2016 BE CADET FACC, CHAVEZ FACP CCDS Ot I10 ESSENTIAL (PRIMARY) HYPERTENSION 01/15/2016 BE CADET FACC, CHAVEZ FACP CCDS Ot I25.10 ATHSCL HEART DISEASE OF [place] CORONARY 01/15/2016 BE CADET FACC, CHAVEZ FACP [...] MD Ot I25.10 ATHSCL HEART DISEASE OF [place] CORONARY 01/16/2016 WILSON GEIGER MD Ot I34.0 [...] EXAM PRE-OPERATIVE NOS 07/21/2016 ARNULFO YAO L COMPOSING ROOM MACHINIST Ot 272.4 HYPERLIPIDEMIA NEC/NOS 07/21/2016 BAIMA, YAO L COMPOSING ROOM MACHINIST Ot 278.00 OBESITY, NOS 07/21/2016 BAIMA, YAO L COMPOSING ROOM MACHINIST Ot 296.50 BIPOL I, REC EPIS (OR CURRENT) DEPRESSED 07/21/2016 BAIMA YAO L COMPOSING ROOM MACHINIST Ot 401.9 HYPERTENSION NOS 07/21/2016 BAIMA, YAO L COMPOSING ROOM MACHINIST Ot 414.00 CORON ATHEROSCLER NOS TYPE VESSEL, NATIV 07/21/2016 BAIMA YAO L COMPOSING ROOM MACHINIST Ot 716.90 ARTHROPATHY NOS-UNSPEC 07/21/2016 MERCYMA YAO L COMPOSING ROOM MACHINIST Ot 780.4 DIZZINESS AND GIDDINESS 07/21/2016 ARNULFO YAO L COMPOSING ROOM MACHINIST Ot 786.05 SHORTNESS OF BREATH 07/21/2016 ADRIENNE CADET, ROCHELLE [place] Ot 599.0 URIN TRACT INFECTION NOS 07/21/2016 FELY CADET, WILSON R Ot 611.72 LUMP OR MASS IN BREAST 07/21/2016 WILSON GEIGER MD R Ot 793.82 INCONCLUSIVE MAMMOGRAM 07/21/2016 Ot E78.4 OTHER HYPERLIPIDEMIA 07/21/2016 Ot I10 ESSENTIAL ( PRIMARY) HYPERTENSION 07/21/2016 Ot I25.10 ATHSCL HEART DISEASE OF [place] CORONARY 07/21/2016 Ot R07.89 OTHER CHEST PAIN 07/21/2016 BE CADET FACC, ALI FACP CCDS Ot E78.4 OTHER HYPERLIPIDEMIA 07/21/2016 BE CADET FACC, ALI FACP CCDS Ot I10 ESSENTIAL (PRIMARY) HYPERTENSION 07/21/2016 BE CADET FACC, ALI FACP CCDS Ot I25.10 ATHSCL HEART DISEASE OF [place] CORONARY 07/21/2016 BE CADET FACC, ALI FACP CCDS Ot I65.23 OCCLUSION AND STENOSIS OF BILATERAL [place] 07/21/2016 BE CADET FACC, ALI FACP CCDS Ot R07.89 OTHER CHEST PAIN 08/05/2016 RON MENSAH MD Ot M19.90 UNSPECIFIED OSTEOARTHRITIS, UNSPECIFIED 08/05/2016 RON MENSAH MD Ot Z51.81 ENCOUNTER FOR THERAPEUTIC DRUG LEVEL MON 08/05/2016 RON MENSAH MD Ot Z79.899 OTHER DIRECTOR [employer] (CURRENT) DRUG THERAPY 08/11/2016 Ot E78.4 OTHER HYPERLIPIDEMIA 08/11/2016 Ot I10 ESSENTIAL ( PRIMARY) HYPERTENSION 08/11/2016 Ot I25.10 ATHSCL HEART DISEASE OF [place] CORONARY 08/11/2016 Ot R07.89 OTHER CHEST PAIN 08/11/2016 BE CADET FACC, ALI FACP CCDS Ot E78.4 OTHER HYPERLIPIDEMIA 08/11/2016 BE CADET FACC, ALI FACP CCDS Ot I10 ESSENTIAL (PRIMARY) HYPERTENSION 08/11/2016 BE CADET FACC, ALI FACP CCDS Ot I25.10 ATHSCL HEART DISEASE OF [place] CORONARY 08/11/2016 BE CADET FACC, ALI FACP [...] 08/11/2016 RON MENSAH MD Ot Z79.899 OTHER DIRECTOR [employer] (CURRENT) DRUG THERAPY 08/12/2016 WILSON GEIGER MD [...] EXAM PRE-OPERATIVE NOS 09/01/2016 YAO ARREDONDO L COMPOSING ROOM MACHINIST Ot 272.4 HYPERLIPIDEMIA NEC/NOS 09/01/2016 BAITRA YAO L COMPOSING ROOM MACHINIST Ot 278.00 OBESITY, NOS 09/01/2016 BAITRA YAO L COMPOSING ROOM MACHINIST Ot 296.50 BIPOL I, REC EPIS (OR CURRENT) DEPRESSED 09/01/2016 ARNULFO, YAO L COMPOSING ROOM MACHINIST Ot 401.9 HYPERTENSION NOS 09/01/2016 BAITRA YAO L COMPOSING ROOM MACHINIST Ot 414.00 CORON ATHEROSCLER NOS TYPE VESSEL, NATIV 09/01/2016 ARNULFO YAO L COMPOSING ROOM MACHINIST Ot 716.90 ARTHROPATHY NOS-UNSPEC 09/01/2016 BAITRA YAO L COMPOSING ROOM MACHINIST Ot 780.4 DIZZINESS AND GIDDINESS 09/01/2016 ARNULFO YAO L COMPOSING ROOM MACHINIST Ot 786.05 SHORTNESS OF BREATH 09/01/2016 ADRIENNE CADET, ROCHELLE [place] Ot 599.0 URIN TRACT INFECTION NOS 09/01/2016 FELY CADET, WILSON [place] Ot 611.72 LUMP OR MASS IN BREAST 09/01/2016 WILSON GEIGER MD R Ot 793.82 INCONCLUSIVE MAMMOGRAM 09/01/2016 Ot E78.4 OTHER HYPERLIPIDEMIA 09/01/2016 Ot I10 ESSENTIAL ( PRIMARY) HYPERTENSION 09/01/2016 Ot I25.10 ATHSCL HEART DISEASE OF [place] CORONARY 09/01/2016 Ot R07.89 OTHER CHEST PAIN 09/01/2016 BE CADET FACC, ALI FACP CCDS Ot E78.4 OTHER HYPERLIPIDEMIA 09/01/2016 BE CADET FACC, ALI FACP CCDS Ot I10 ESSENTIAL (PRIMARY) HYPERTENSION 09/01/2016 BE CADET FACC, ALI FACP CCDS Ot I25.10 ATHSCL HEART DISEASE OF [place] CORONARY 09/01/2016 BE CADET FACC, ALI FACP [...] 09/01/2016 RON MENSAH MD Ot Z79.899 OTHER CUSTODIAL (CURRENT) DRUG THERAPY 09/01/2016 FELY CADET WILSON [...] RON MENSAH MD B Ot Z79.899 OTHER DIRECTOR [employer] (CURRENT) DRUG THERAPY 09/23/2016 FELY CADET WILSON [...] RON MENSAH MD B Ot Z79.899 OTHER CUSTODIAL (CURRENT) DRUG THERAPY 03/31/2017 BE MADRIGAL, ALI FACP CCDS Ot E78.4 OTHER HYPERLIPIDEMIA 03/31/2017 BE MADRIGALC, ALI FACP CCDS Ot I10 ESSENTIAL (PRIMARY) HYPERTENSION 03/31/2017 BE MADRIGALC, ALI FACP CCDS Ot I25.10 ATHSCL HEART DISEASE OF [place] CORONARY 03/31/2017 BE MADRIGALC, ALI FACP CCDS Ot I65.23 OCCLUSION AND STENOSIS OF [place]ILATERAL [place] 03/31/2017 BE MADRIGALC, ALI FACP CCDS Ot R42 DIZZINESS AND GIDDINESS 03/31/2017 BAIMA, YAO L COMPOSING ROOM MACHINIST Ot I10 ESSENTIAL (PRIMARY) HYPERTENSION 03/31/2017 BAIMA, YAO L COMPOSING ROOM MACHINIST Ot I25.10 ATHSCL HEART DISEASE OF [place] CORONARY 03/31/2017 BAIMA, YAO L COMPOSING ROOM MACHINIST Ot R07.89 OTHER CHEST PAIN 04/20/2017 BAIMA, YAO L COMPOSING ROOM MACHINIST Ot I10 ESSENTIAL (PRIMARY) HYPERTENSION 04/20/2017 BAIMA, YAO L COMPOSING ROOM MACHINIST Ot I25.10 ATHSCL HEART DISEASE OF [place] CORONARY 04/20/2017 BAIMA, YAO L COMPOSING ROOM MACHINIST Ot R07.89 OTHER CHEST PAIN 04/20/2017 BE CADET FACC, ALI FACP CCDS Ot E78.4 OTHER HYPERLIPIDEMIA 04/20/2017 BE CADET FACC, ALI FACP CCDS Ot I10 ESSENTIAL (PRIMARY) HYPERTENSION 04/20/2017 BE CADET FACC, ALI FACP CCDS Ot I25.10 ATHSCL HEART DISEASE OF [place] CORONARY 04/20/2017 BE CADET FACC, ALI FACP CCDS Ot I65.23 OCCLUSION AND STENOSIS OF BILATERAL [place] 04/20/2017 BE CADET FACC, ALI FACP CCDS Ot R42 DIZZINESS AND GIDDINESS 04/20/2017 RON MENSAH MD Ot M19.90 UNSPECIFIED OSTEOARTHRITIS, UNSPECIFIED 04/20/2017 RON MENSAH MD Ot Z51.81 ENCOUNTER FOR THERAPEUTIC DRUG LEVEL MON 04/20/2017 RON MENSAH MD Ot Z79.899 OTHER DIRECTOR [employer] (CURRENT) DRUG THERAPY Procedures There is no [...] rate by westergren method 6 mm 0-30 [id number] - 08/12/16 17:05 RESULTS NEGATIVE FOR ANTIGEN AND TOXIN A/B [facility] Stool bacteria identification by culture - 08/12/16 17:05 Stool bacteria identification by culture N [facility] Complete blood count (CBC) [...] rate by westergren method 2 mm 0-30 Complete blood count (CBC) with automated white blood cell (WBC) differential - 05/22/17 08:50 Blood leukocytes automated count (number/volume) 8.8 10*3/uL 4.3-11.0 Blood erythrocytes automated count (number/volume) 3.43 10*6/uL 4.35-5.85 Venous blood hemoglobin measurement (mass/volume) 11.7 g/dL 11.5-16.0 Blood hematocrit (volume fraction) 32 % 35-52 Automated erythrocyte mean corpuscular volume 95 [foz_us] 80-99 Automated erythrocyte mean corpuscular hemoglobin (mass per erythrocyte) 34 pg 25-34 Automated erythrocyte mean corpuscular hemoglobin concentration measurement ( mass/volume) 36 g/dL 32-36 Automated erythrocyte distribution width ratio 12.2 % 10.0-14.5 Automated blood platelet count (count/volume) 360 10*3/uL 130-400 Automated blood platelet mean volume measurement 9.2 [foz_us] 7.4-10.4 Automated blood neutrophils/100 leukocytes 81 % 42-75 Automated blood lymphocytes/100 leukocytes 12 % 12-44 Blood monocytes/100 leukocytes 6 % 0-12 Automated blood eosinophils/100 leukocytes 0 % 0-10 Automated blood basophils/100 leukocytes 0 % 0-10 Blood neutrophils automated count (number/volume) 7.2 10*3 1.8-7.8 Blood lymphocytes automated count (number/volume) 1.1 10*3 1.0-4.0 Blood monocytes automated count (number/volume) 0.6 10*3 0.0-1.0 Automated eosinophil count 0.0 10*3/uL 0.0-0.3 Automated blood basophil count (count/volume) 0.0 10*3/uL 0.0-0.1 Comprehensive metabolic panel - 05/22/17 08:50 Serum or plasma sodium measurement (moles/volume) 130 mmol/L 135-145 Serum or plasma potassium measurement (moles/volume) 3.7 mmol/L 3.6-5.0 Serum or plasma chloride measurement (moles/volume) 90 mmol/L 98-107 Carbon dioxide 25 mmol/L 21-32 Serum or plasma anion gap determination (moles/volume) 15 mmol/L 5-14 Serum or plasma urea nitrogen measurement (mass/volume) 17 mg/dL 7-18 Serum or plasma creatinine measurement (mass/volume) 0.97 mg/dL 0.60-1.30 Serum or plasma urea nitrogen/creatinine mass ratio 18 NRG Serum or plasma creatinine measurement with calculation of estimated glomerular filtration rate 58 NRG Serum or plasma glucose measurement (mass/volume) 118 mg/dL 70-105 Serum or plasma calcium measurement (mass/volume) 9.7 mg/dL 8.5-10.1 Serum or plasma total bilirubin measurement (mass/volume) 2.1 mg/dL 0.1-1.0 Serum or plasma alkaline phosphatase measurement (enzymatic activity/volume) 73 U/L 40-136 Serum or plasma aspartate aminotransferase measurement (enzymatic activity/ volume) 22 U/L 5-34 Serum or plasma alanine aminotransferase measurement (enzymatic activity/volume ) 13 U/L 0-55 Serum or plasma protein measurement (mass/volume) 6.9 g/dL 6.4-8.2 Serum or plasma albumin measurement (mass/volume) 4.4 g/dL 3.2-4.5 Lipase - 05/22/17 08:50 Lipase 26 U/L 8-78 Encounters ACCT No. Visit Date/Time Discharge Status Pt. Type Provider Facility Loc./Unit Complaint [id number] 03/30/2017 14:13:00 03/30/2017 23:59:59 CLS Outpatient RON MENSAH MD [facility] LAB M19.90 [id number] 03/30/2017 13:28:00 03/30/2017 23:59:59 CLS Outpatient BE CADET FACC, CHAVEZ TAVERAS CCDS [facility] LAB I25.10,I65.23, I10,E78.4,R42 [id number] 03/30/2017 11:42:00 03/30/2017 23:59:59 CLS Outpatient YAO ARREDONDO [facility] CARD CAD I25.10 [id number] 03/02/2017 10:00:00 03/02/2017 23:59:59 CLS Preadmit BE CADET FACC, CHAVEZ TAVERAS CCDS [facility] CATH CHEST PAIN, CAD [id number] 01/07/2017 15:14:00 01/07/2017 23:59:59 CLS Outpatient RON MENSAH MD [facility] LAB CRP,CBC [id number] 11/11/2016 00:12:00 11/11/2016 23:59:59 CLS Preadmit WILSON GEIGER MD [facility] LAB ACUTE DIARRHEA [id number] 08/12/2016 16:15:00 11/10/2016 00:01:00 DIS Outpatient WILSON GEIGER MD R [facility] LAB ACUTE DIARRHEA [id number] 10/20/2016 00:18:00 10/20/2016 23:59:59 CLS Preadmit WILSON GEIGER MD R [facility] LAB ACUTE DIARRHEA [id number] 07/21/2016 16:07:00 10/19/2016 00:01:00 DIS Outpatient WILSON GEIGER MD [facility] LAB ACUTE DIARRHEA [id number] 09/01/2016 09:39:00 09/01/2016 23:59:59 CLS Outpatient WILSON GEIGER MD [facility] LAB R19.7 [id number] 08/12/2016 16:24:00 08/12/2016 23:59:59 CLS Outpatient WILSON GEIGER MD [facility] RAD FRONTAL SINUS PAIN, PRODUCTIVE COUGH [id number] 08/11/2016 11:53:00 08/11/2016 23:59:59 CLS Outpatient WILSON GEIGER MD [facility] LAB FRONTAL SINUS PAIN,ACUTE DIARRHEA [id number] 08/04/2016 16:23:00 08/04/2016 23:59:59 CLS Outpatient RON MENSAH MD [facility] LAB 714.9 [id number] 01/15/2016 19:22:00 01/16/2016 09:30:00 DIS Inpatient WILSON GEIGER MD [facility] ICU CHEST PAIN [id number] 08/05/2015 11:20:00 08/05/2015 23:59:59 CLS Outpatient BE CADET FACC, CHAVEZ TAVERAS CCDS [facility] CARD CHEST PAIN, CAD [id number] 12/31/2014 16:15:00 01/30/2015 00:01:00 DIS Outpatient RON MENSAH MD [facility] LAB OSTEOARTHRITIS OF MULTIPLE JOINTS,HIGH RISK MED [id number] 10/01/2014 14:04:00 10/01/2014 23:59:59 CLS Outpatient WILSON GEIGER MD [facility] RAD LUMP ON RT BREAST [id number] 09/21/2014 10:30:00 09/21/2014 23:59:59 CLS Preadmit KENZIE CADET, GISELA Ribeiro [facility] CARD DDD [id number] 08/01/2014 12:45:00 08/01/2014 23:59:59 CLS Outpatient ROCHELLE DELEON MD [facility] RAD RECURRING UTI [id number] 08/16/2013 18:06:00 08/16/2013 23:59:59 CLS Outpatient YAO ARREDONDO [facility] RT DIZZINESS,SOB, [id number] 05/17/2013 00:06:00 05/17/2013 02:23:00 DIS Emergency CHRISSY CADET, ARIN Davis [facility] ER FELL OFF PORCH,HEAD INJURY [id number] 02/16/2013 06:03:00 02/16/2013 11:40:00 [facility];SEVERE ANXIETY [id number] 02/15/2013 14:50:00 02/15/2013 23:59:59 CLS Outpatient BOB MORENO DO [facility] PREOP POST MENOPAUSAL BLEEDING; SEVERE ANXIETY [id number] 01/20/2013 08:30:00 01/21/2013 18:00:00 DIS Outpatient BE CADET FACC, CHAVEZ TAVERAS CCDS [facility] CATH CHEST PAIN [id number] 11/08/2012 20:07:00 11/08/2012 21:01:00 DIS Emergency DAVID DO, RICARDO K [facility] ER LT HAND/ARM TINGLING [id number] 10/22/2012 17:46:00 10/22/2012 18:58:00 DIS Emergency FRANSICO CADET, LUZ T [facility] ER LEFT HAND INJ [id number] 10/21/2012 10:58:00 10/21/2012 23:59:59 CLS Outpatient WILSON GEIGER MD [facility] RAD FALL L HAND [id number] 05/22/2017 11:02:00 ACT Inpatient WILSON GEIGER MD [facility] 4TH PRESISTENT NAUSEA AND VOMITING [id number] 08/01/2015 07:40:00 Document Registration [id number] 08/02/2014 14:44:00 Document Registration [id number] 11/10/2011 21:31:00 Document Registration [id number] 09/30/2011 16:59:00 Document Registration [id number] 08/16/2011 02:59:00 Document Registration [id number] 03/23/2011 14:56:00 Document Registration [id number] 02/19/2011 15:28:00 Document Registration [id number] 02/13/2011 12:45:00 Document Registration [id number] 01/28/2011 22:29:00 Document Registration [id number] 12/21/2010 02:59:00 Document Registration [id number] 08/28/2010 14:03:00 Document Registration
[2017-05-22] MEDS ORDERED: ACETAMINOPHEN 500 MG TAB (TYLENOL) PO PRN (13:15)
[2017-05-22] MEDS ORDERED: ONDANSETRON 4 MG/2 ML (SDV) Z0FRAN IV PRN (13:15)
[2017-05-22] MEDS: fentaNYL INJECTION 100 MCG/2 ML AMP IV PRN ×2 (13:41→21:18)
[2017-05-22] MEDS ORDERED: HYDR200T46 PO (14:51)
[2017-05-22] MEDS ORDERED: FOLI1TAB24 PO (14:51)
[2017-05-22] MEDS ORDERED: METH2.5T PO (14:51)
[2017-05-22] MEDS ORDERED: COLE1TAB PO (14:53)
[2017-05-22] MEDS ORDERED: BACLOFEN 10 MG (LIORESAL) TAB PO PRN ×2 (15:00)
[2017-05-22] MEDS ORDERED: PATIENT MAY USE OWN MEDS, ALL MC SCH (15:00)
--- NOTE | 2017-05-22 15:01 | History & Physical-Hospitalist ---
HPI History of Present Illness: HPI/Chief Complaint Pt is a 66yoCF with a PMH of RA, HTN, depression, and bipolar disorder who presented to the ER with CC of nausea and vomiting. She reports to be that she has the flu, a sinus infection, and a UTI. She states she was diagnosed with these at urgent care on 05/10 and prescribed Macrobid and Bactrim. She was able to take a few days of them but was unable to finish the course due to her vomiting. She states she has not taken any medications since Wednesday night because of her nausea. She reports vomiting 4x/day. She vomited this morning prior to presentation. She was given IVF and zofran in the ER without improvement. She was admitted for intractable nausea. Date Seen 05/22/17 Time Seen by Provider: 14:15 Attending Physician Romero Frye MD PCP Romero Frye MD Referring Physician Date of Admission May 22, 2017 at 11:02 am Home Medications & Allergies Home Medications Reviewed patient Home Medication Reconciliation Form Allergies Allergies Coded Allergies promethazine HCl (Unverified Allergy, Mild, 08/16/11) amitriptyline (Verified Allergy, Unknown, 06/22/06) azithromycin (Verified Allergy, Unknown, 06/22/06) celecoxib (Verified Allergy, Unknown, TAKES ASPIRIN AT HOME, 03/20/08) divalproex sodium (Verified Allergy, Unknown, 06/22/06) erythromycin base (Verified Allergy, Unknown, 06/22/06) meperidine (Verified Allergy, Unknown, 05/28/08) morphine (Verified Allergy, Unknown, 05/28/08) ofloxacin (Verified Allergy, Unknown, 06/22/06) penicillin G (Verified Allergy, Unknown, 06/22/06) promethazine (Verified Allergy, Unknown, 05/28/08) propoxyphene (Verified Allergy, Unknown, 01/10/08) lamotrigine (Unverified Adverse Reaction, Intermediate, BODY JERKS, 10/11/09) Past Idduzuc-Cpkmpc-Vumjuo Hx Patient Social History Alcohol Use: Denies Use Recreational Drug Use: No Smoking Status: Never a Smoker Physical Abuse Screen: No Sexual Abuse: No Recent Foreign Travel: No Contact w/other who traveled: No Recent Hopitalizations: No Recent Infectious Disease Expo: No Immunizations Up To Date Tetanus Booster (TDap): Less than 5yrs Pediatric: No Date of Pneumonia Vaccine: Aug 20, 2016 Date of Influenza Vaccine: Feb 09, 2017 Seasonal Allergies Seasonal Allergies: No Surgeries Yes (ANGIOPLASTY) Adenoidectomy, Appendectomy, Cardiac, Coronary Stent, Gallbladder, Orthopedic, Tonsillectomy Respiratory No Cardiovascular Yes (CARDIAC STENT X4, ANGIOPLASTY X 2; CAROTID DISEASE) Coronary Artery Disease, High Cholesterol Neurological No Reproductive System Hx Reproductive Disorders: Yes (unable to have children) 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 Genitourinary Bladder Infection Gastrointestinal Yes (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) Colitis, Irritable Bowel Musculoskeletal Yes (CHRONIC GENREALIZED PAIN; MULTIPLE ORTHO PROCEDURES ON HANDS) Arthritis, Fibromyalgia, Fractures Endocrine History of Endocrine Disorders: No HEENT Hearing Impairment: Hard of Hearing Cancer No Psychosocial History of Psychiatric Problem: Yes Behavioral Health Disorders: Anxiety, Bipolar, Depression Integumentary History of Skin or Integumenta: No Blood Transfusions History of Blood Disorders: No Adverse Reaction to a Blood Tr: No Reviewed Nursing Assessment Reviewed/Agree w Nursing PMH: Yes Family Medical History Significant Family History: No Pertinent Family Hx Review of Systems Constitutional: chills, fever, weakness EENTM: nose congestion Respiratory: cough, No short of breath Cardiovascular: No chest pain Gastrointestinal: abdominal pain (diffuse), nausea, vomiting Genitourinary: dysuria, frequency Musculoskeletal: back pain, joint pain Skin: no symptoms reported Psychiatric/Neurological: No Symptoms Reported Physical Exam Physical Exam Vital Signs Vital Sign - Last 12Hours 05/22/17 05/22/17 08:19 12:59 Temp 96.3 Pulse 77 Resp 18 B/P (MAP) 177/81 (113) Pulse Ox 96 O2 Delivery Room Air Capillary Refill : Less Than 3 Seconds General Appearance: No Apparent Distress, WD/WN Respiratory: Lungs Clear, No Respiratory Distress Cardiovascular: Regular Rate, Rhythm, No Murmur Gastrointestinal: Normal Bowel Sounds, Soft, No Distended, No Guarding, Tenderness (mild, diffuse) Extremity: Normal Capillary Refill, Non Tender, No Calf Tenderness, No Pedal Edema Neurologic/Psychiatric: Alert, Oriented x3, Depressed Affect Skin: Normal Color, Warm/Dry Results Results/Procedures Lab Laboratory Tests 05/22/17 08:50 Assessment/Plan Admission Diagnosis intractable nausea and vomiting Diagnosis/Problems Diagnosis/Problems (1) Intractable nausea and vomiting Status: Acute Assessment & Plan: Unable to tolerate oral intake IVF IV zofran prn has Phenergan allergy Hyponatremia noted on labs- likely due to nausea Qualifiers: Qualified Codes: R11.2 - Nausea with vomiting, unspecified (2) Bipolar disorder Status: Chronic Assessment & Plan: Continue home meds (3) Arthritis Assessment & Plan: On Methotrexate, folic acid, hydroxychloroquine Took methotrexate on wednesday (4) HTN (hypertension) Assessment & Plan: BP elevated on arrival Will resume home meds if able Nitropaste available prn if unable to tolerate (5) Dysuria Assessment & Plan: Recently had UTI and completed ~5days of Macrobid Will recheck UA Clinical Quality Measures DVT/VTE Risk/Contraindication: Risk Factor Score Per Nursin RFS Level Per Nursing on Admit: 2=Moderate JUAN BONNER MD May 22, 2017 3:01 pm
[2017-05-22 15:30] VITALS: BP 179/74
[2017-05-22] MEDS ORDERED: MELATONIN 3 MG TABLET PO PRN (15:45)
[2017-05-22] MEDS ORDERED: ANTACID SUSP 30 ML UDC (MYLANTA) PO PRN (15:45)
[2017-05-22] MEDS ORDERED: BISACODYL 10 MG SUPP (DULCOLAX) PR PRN (15:45)
[2017-05-22] MEDS ORDERED: BENZONATATE 100 MG (TESSALON) CAPSULE PO PRN (15:45)
[2017-05-22] MEDS ORDERED: MILK OF MAGNESIA 400 MG/5 ML 30 ML UDC PO PRN (15:45)
[2017-05-22] MEDS: sulfaSALAzine 500 MG (AZULFIDINE) TAB PO SCH (16:15)
[2017-05-22 16:57] LABS: BILIRUBIN,URINE NEGATIVE (NEGATIVE); CLARITY,URINE SLIGHTLY CLOUDY; COLOR,URINE YELLOW; GLUCOSE, URINE (UA) NEGATIVE (NEGATIVE); KETONES,URINE 3+ (NEGATIVE); LEUKOCYTE ESTERASE ,URINE 1+ (NEGATIVE); NITRITE,URINE NEGATIVE (NEGATIVE); PH,URINE 6 (5-9); PROTEIN,URINE 1+ (NEGATIVE); UROBILINOGEN,URINE 1 MG/DL (NORMAL)
[2017-05-22 17:06] LABS: BACTERIA,URINE NEGATIVE /HPF; RBC,URINE RARE /HPF; SQUAMOUS EPITHELIAL CELL,UR 0-2 /HPF
[2017-05-22] MEDS: GABAPENTIN 600 MG (NEURONTIN) TAB PO SCH (20:54)
[2017-05-22] MEDS: COLESTIPOL 1 GM (COLESTID) TAB PO SCH (20:54)
[2017-05-22 20:56] VITALS: BP 164/74
[2017-05-22] MEDS: HYDROXYCHLOROQUINE 200 MG (PLAQUENIL) TAB PO SCH (20:56)
[2017-05-22] MEDS ORDERED: GABAPENTIN 600 MG (NEURONTIN) TAB PO SCH (21:00)
[2017-05-22] MEDS ORDERED: SIMvastatin 20 MG (ZOCOR) TAB PO SCH (21:00)
[2017-05-22] MEDS ORDERED: LOSARTAN 100 MG (COZAAR) TABLET PO SCH (21:00)
[2017-05-23] VITALS: BP 148/69
[2017-05-23] MEDS: NS IV 1000 ML 1,000 ML IV SCH (02:32)
[2017-05-23 04:00] VITALS: BP 157/68
[2017-05-23] MEDS: sulfaSALAzine 500 MG (AZULFIDINE) TAB PO SCH (06:21)
[2017-05-23] MEDS: fentaNYL INJECTION 100 MCG/2 ML AMP IV PRN (06:22)
[2017-05-23 08:00] VITALS: BP 138/63
[2017-05-23] MEDS: COLESTIPOL 1 GM (COLESTID) TAB PO SCH (08:59)
[2017-05-23] MEDS ORDERED: FOLIC ACID 1 MG TAB PO SCH (09:00)
[2017-05-23] MEDS: GABAPENTIN 600 MG (NEURONTIN) TAB PO SCH ×2 (09:00→14:53)
[2017-05-23] MEDS ORDERED: BISOPROLOL/HCTZ 5/6.25 MG (ZIAC) TAB PO SCH (09:00)
[2017-05-23] MEDS ORDERED: CITALOPRAM 40 MG PO SCH (09:00)
[2017-05-23] MEDS ORDERED: METO-370 PO (09:04)
[2017-05-23] MEDS: HYDROXYCHLOROQUINE 200 MG (PLAQUENIL) TAB PO SCH (09:50)
[2017-05-23] MEDS ORDERED: OSELTAMIVIR 75 MG (TAMIFLU) BOX OF 10 PO SCH ×2 (10:27→13:15)
[2017-05-23] MEDS ORDERED: OSLT75C PO (11:30)
[2017-05-23 12:00] VITALS: BP 131/60
[2017-05-23] MEDS ORDERED: RELABEL FOR HOME USE MC SCH (13:15)
--- NOTE | 2017-05-23 14:28 | Discharge Summary-Hospitalist ---
Diagnosis/Chief Complaint Date of Admission May 22, 2017 at 11:02 am Date of Discharge Discharge Date: May 23, 2017 Admission Diagnosis intractable nausea and vomiting Discharge Diagnosis (1) Flu Status: Acute Assessment & Plan: Tested positive for Flu B Continue Tamiflu (2) Intractable nausea and vomiting Status: Acute Assessment & Plan: Resolved, tolerated diet overnight (3) Bipolar disorder Status: Chronic Assessment & Plan: Continue home meds (4) Arthritis Assessment & Plan: On Methotrexate, folic acid, hydroxychloroquine Took methotrexate on wednesday (5) HTN (hypertension) Assessment & Plan: Improved with home meds (6) Dysuria Assessment & Plan: Recently had UTI and completed ~5days of Macrobid UA shows no bacteruria Discharge Summary Discharge Physical Examination Allergies: Coded Allergies: promethazine HCl (Unverified Allergy, Mild, 08/16/11) amitriptyline (Verified Allergy, Unknown, 06/22/06) azithromycin (Verified Allergy, Unknown, 06/22/06) celecoxib (Verified Allergy, Unknown, TAKES ASPIRIN AT HOME, 03/20/08) divalproex sodium (Verified Allergy, Unknown, 06/22/06) erythromycin base (Verified Allergy, Unknown, 06/22/06) meperidine (Verified Allergy, Unknown, 05/28/08) morphine (Verified Allergy, Unknown, 05/28/08) ofloxacin (Verified Allergy, Unknown, 06/22/06) penicillin G (Verified Allergy, Unknown, 06/22/06) promethazine (Verified Allergy, Unknown, 05/28/08) propoxyphene (Verified Allergy, Unknown, 01/10/08) lamotrigine (Unverified Adverse Reaction, Intermediate, BODY JERKS, ) Vitals & I&Os Vital Signs Date Time Temp Pulse Resp B/P (MAP) Pulse Ox O2 Delivery O2 Flow Rate FiO2 05/23/17 12:00 96.1 64 18 131/60 (83) 94 Room Air Hospital Course Pt is a 66yoCF who presented to the Er with CC of nausea and vomiting. She was found to be flu positive and started on Tamiflu. She was able to tolerate a diet and has not needed any further Zofran to maintain her nausea. On day two of admission she felt well enough to be discharged home. She was discharged home in stable condition and advised to follow up with Dr Frye in 1 week. Labs (last 24 hrs) Laboratory Tests 05/22/17 16:35: Urine Color YELLOW, Urine Clarity SLIGHTLY CLOUDY, Urine pH 6, Urine Specific [place] 1.020, Urine Protein 1+H, Urine Glucose (UA) NEGATIVE, Urine Ketones 3+H , Urine Nitrite NEGATIVE, Urine Bilirubin NEGATIVE, Urine Urobilinogen 1, Urine Leukocyte Esterase 1+H, Urine RBC (Auto) 1+H, Urine RBC RARE, Urine WBC 5-10H, Urine Squamous Epithelial Cells 0-2, Urine Crystals NONE, Urine Bacteria NEGATIVE, Urine Casts NONE, Urine Mucus NEGATIVE, Urine Culture Indicated YES Microbiology 05/22/17 Influenza Types A,B Antigen (JOSH) - Final, Complete Discharge Home Medications: Active Scripts Active Tamiflu (Oseltamivir Phosphate) 75 Mg Cap 1 Each PO BID Folic Acid 1 Mg Tablet 1 Mg PO DAILY 30 Days Methotrexate (Methotrexate Sodium) 2.5 Mg Tablet 20 Mg PO TUESDAYS 30 Days on Tuesdays Reported Metoprolol Succinate 50 Mg Tab.er.24h 50 Mg PO DAILY Colestipol HCl 1 Gm Tablet 1 Gm PO BID Baclofen 10 Mg Tablet 20 Mg PO TID PRN Hydroxychloroquine Sulfate 200 Mg Tablet 200 Mg PO BID Simvastatin 20 Mg Tablet 20 Mg PO HS Gabapentin 600 Mg Tablet 1,200 Mg PO TID TAKES 2 (600MG) TABLETS Losartan Potassium 100 Mg Tablet 100 Mg PO HS Sulfasalazine 500 Mg Tablet 1,000 Mg PO BID TAKES 2 (500MG) TABLETS Bisoprolol-Hctz 5-6.25 mg Tab (Bisoprolol Fumarate/Hctz) 1 Each Tablet 1 Tab PO DAILY Citalopram HBr (Citalopram Hydrobromide) 40 Mg Tablet 40 Mg PO DAILY Vitamin B-12 (Cyanocobalamin) 500 Mcg Lozenge 2 Tab PO DAILY Vitamin D3 (Cholecalciferol (Vitamin D3)) 400 Unit Capsule 2 Cap PO HS Fish Oil 1,000 Mg Softgel ([place]-3 Fatty Acids/Fish Oil) 1 Each Capsule 3,000 Mg PO HS TAKES 3 (1000MG) AT BEDTIME Multivitamins Tablet ( Vit/Fe Fumarate/Fa) 1 Each Tablet 1 Tab PO HS Magnesium (Magnesium Oxide) 400 Mg Capsule 400 Mg PO BID Melatonin 5 Mg Tablet (Melatonin/Pyridoxine Hcl (B6)) 1 Each Tablet 5 Mg PO HS PRN Bentyl (Dicyclomine Hcl) 20 Mg Tablet 20 Mg PO TID PRN Advil (Ibuprofen) 200 Mg Tablet 400 Mg PO TID PRN TAKES 2 (200MG) TABLETS Mariel (Aspirin) 81 Mg Tablet.dr 81 Mg PO HS Instructions to patient/family Please see electronic discharge instructions given to patient. Clinical Quality Measures DVT/VTE Risk/Contraindication: Risk Factor Score Per Nursin RFS Level Per Nursing on Admit: 2=Moderate Copy Copies To 1: WILSON FRYE MD Problem Qualifiers (1) Intractable nausea and vomiting: Vomiting type: unspecified Qualified Codes: R11.2 - Nausea with vomiting, unspecified JUAN BONNER MD May 23, 2017 2:27 pm
== END 2017-05-23 11:31 | disposition home or self-care (01) ==
LOC: EDUNIT# 08:05 → ER 08:08 → 4TH 11:02 → UNDOADMOB 11:02 → 4TH 12:30 → UNDODISOB 05-23 15:20
PROVIDERS: ADMIT Family Medicine; ATTEND Family Medicine
DX: J10.2 Influenza due to other identified influenza virus with gastrointestinal manifestations (principal); R11.2 Nausea with vomiting, unspecified; F31.9 Bipolar disorder, unspecified; M19.90 Unspecified osteoarthritis, unspecified site; I10 Essential (primary) hypertension; R30.0 Dysuria; E87.6 Hypokalemia; Z88.1 Allergy status to other antibiotic agents; Z88.5 Allergy status to narcotic agent; Z88.8 Allergy status to other drugs, medicaments and biological substances; Z79.82 Long term (current) use of aspirin; Z79.899 Other long term (current) drug therapy; Z79.52 Long term (current) use of systemic steroids
CPT/HCPCS: 36415; 80053; 81000; 83690; 85025; 87088; 87804; 96361; 96374; 96375; 99284

== ENCOUNTER → 2017-11-01 | Outpatient (CLI) | payer MEDICARE, OTHER ==
[~2017-11-01] MED LIST changes: +COLE1TAB PO; +FOLI1TAB24 PO; +METO-370 PO; +MTX2.5T PO; +OSLT75C PO
[2017-11-01 15:09] LABS: BASOPHILS % (AUTO) 1 % (0-10); EOSINOPHILS # (AUTO) 0.1 10^3/uL (0.0-0.3); EOSINOPHILS % (AUTO) 2 % (0-10); HEMATOCRIT 33 % (35-52); HEMOGLOBIN 11.5 G/DL (11.5-16.0); LYMPHOCYTES # (AUTO) 0.9 X 10^3 (1.0-4.0); LYMPHOCYTES % (AUTO) 23 % (12-44); MEAN CORPUSCULAR HEMOGLOBIN 32 PG (25-34); MEAN CORPUSCULAR HGB CONC 35 G/DL (32-36); MEAN CORPUSCULAR VOLUME 92 FL (80-99); MEAN PLATELET VOLUME 8.8 FL (7.4-10.4); MONOCYTES # (AUTO) 0.4 X 10^3 (0.0-1.0); MONOCYTES % (AUTO) 11 % (0-12); NEUTROPHILS # (AUTO) 2.5 X 10^3 (1.8-7.8); NEUTROPHILS % (AUTO) 64 % (42-75); PLATELET COUNT 227 10^3/uL (130-400); RED BLOOD COUNT 3.56 10^6/uL (4.35-5.85); RED CELL DISTRIBUTION WIDTH 12.7 % (10.0-14.5); WHITE BLOOD COUNT 3.9 10^3/uL (4.3-11.0)
[2017-11-01 15:32] LABS: ALANINE AMINOTRANSFERASE 13 U/L (0-55); ALBUMIN 4.1 GM/DL (3.2-4.5); ALKALINE PHOSPHATASE 62 U/L (40-136); BILIRUBIN,TOTAL 1.5 MG/DL (0.1-1.0); BUN/CREATININE RATIO 8; CALCIUM 9.4 MG/DL (8.5-10.1); CARBON DIOXIDE 26 MMOL/L (21-32); CHLORIDE 100 MMOL/L (98-107); CHOLESTEROL 146 MG/DL (< 200); CREATININE SERUM 0.77 MG/DL (0.60-1.30); GFR ESTIMATED > 60; GLUCOSE 94 MG/DL (70-105); HDL CHOLESTEROL 56 MG/DL (40-60); MAGNESIUM 2.1 MG/DL (1.8-2.4); SODIUM 134 MMOL/L (135-145); TRIGLYCERIDES 82 MG/DL (<150); VLDL CHOLESTEROL 16 MG/DL (5-40)
[2017-11-01 15:34] LABS: ERYTHROCYTE SEDIMENTATION RATE 4 MM/HR (0-30)
== END ==
LOC: LAB 14:27
PROVIDERS: ATTEND Nurse Practitioner Family
DX: I10 Essential (primary) hypertension (principal); I25.10 Atherosclerotic heart disease of native coronary artery without angina pectoris; M79.89 Other specified soft tissue disorders; E87.6 Hypokalemia
CPT/HCPCS: 36415; 80053; 80061; 83735; 84443; 85025; 85652

== ENCOUNTER → 2017-11-01 | Outpatient (CLI) | payer MEDICARE, OTHER ==
[2017-11-01 15:11] LABS: BASOPHILS % (AUTO) 0 % (0-10); EOSINOPHILS # (AUTO) 0.1 10^3/uL (0.0-0.3); EOSINOPHILS % (AUTO) 1 % (0-10); HEMATOCRIT 32 % (35-52); HEMOGLOBIN 11.4 G/DL (11.5-16.0); LYMPHOCYTES # (AUTO) 0.9 X 10^3 (1.0-4.0); LYMPHOCYTES % (AUTO) 24 % (12-44); MEAN CORPUSCULAR HEMOGLOBIN 32 PG (25-34); MEAN CORPUSCULAR HGB CONC 35 G/DL (32-36); MEAN CORPUSCULAR VOLUME 92 FL (80-99); MONOCYTES # (AUTO) 0.4 X 10^3 (0.0-1.0); MONOCYTES % (AUTO) 10 % (0-12); NEUTROPHILS # (AUTO) 2.5 X 10^3 (1.8-7.8); NEUTROPHILS % (AUTO) 64 % (42-75); PLATELET COUNT 232 10^3/uL (130-400); RED BLOOD COUNT 3.53 10^6/uL (4.35-5.85); RED CELL DISTRIBUTION WIDTH 12.7 % (10.0-14.5); WHITE BLOOD COUNT 3.8 10^3/uL (4.3-11.0)
[2017-11-01 15:46] LABS: BUN/CREATININE RATIO 8; CREATININE SERUM 0.77 MG/DL (0.60-1.30); GFR ESTIMATED > 60
[2017-11-01 15:47] LABS: ALANINE AMINOTRANSFERASE 13 U/L (0-55)
== END ==
LOC: LAB 14:38
PROVIDERS: ATTEND Internal Medicine Rheumatology
DX: M06.09 Rheumatoid arthritis without rheumatoid factor, multiple sites (principal); Z79.899 Other long term (current) drug therapy
CPT/HCPCS: 36415; 82565; 84460; 84520; 85025; 86141

== ENCOUNTER 2018-02-19 13:23 | Outpatient (RCR) | payer MEDICARE, OTHER ==
[~2018-02-19 13:23] MED LIST changes: +AMLO2.5T3 PO; -LOSA100T28 PO; +LOSA100T8 PO
[2018-02-19 14:00] LABS: BASOPHILS % (AUTO) 0 % (0-10); EOSINOPHILS # (AUTO) 0.1 10^3/uL (0.0-0.3); EOSINOPHILS % (AUTO) 2 % (0-10); HEMATOCRIT 32 % (35-52); HEMOGLOBIN 10.6 G/DL (11.5-16.0); LYMPHOCYTES # (AUTO) 0.7 X 10^3 (1.0-4.0); LYMPHOCYTES % (AUTO) 19 % (12-44); MEAN CORPUSCULAR HEMOGLOBIN 32 PG (25-34); MEAN CORPUSCULAR HGB CONC 33 G/DL (32-36); MEAN CORPUSCULAR VOLUME 95 FL (80-99); MEAN PLATELET VOLUME 9.1 FL (7.4-10.4); MONOCYTES # (AUTO) 0.3 X 10^3 (0.0-1.0); MONOCYTES % (AUTO) 9 % (0-12); NEUTROPHILS # (AUTO) 2.7 X 10^3 (1.8-7.8); NEUTROPHILS % (AUTO) 70 % (42-75); PLATELET COUNT 240 10^3/uL (130-400); RED BLOOD COUNT 3.36 10^6/uL (4.35-5.85); RED CELL DISTRIBUTION WIDTH 12.8 % (10.0-14.5); WHITE BLOOD COUNT 3.8 10^3/uL (4.3-11.0)
[2018-02-19 14:15] LABS: ALANINE AMINOTRANSFERASE 13 U/L (0-55); GFR ESTIMATED > 60
== END 2018-05-20 | disposition home or self-care (01) ==
LOC: LAB 13:23
PROVIDERS: ATTEND Internal Medicine Rheumatology
DX: Z51.81 Encounter for therapeutic drug level monitoring (principal); M15.4 Erosive (osteo)arthritis; Z79.899 Other long term (current) drug therapy
CPT/HCPCS: 36415; 82565; 84460; 85025; 86141

== ENCOUNTER → 2018-03-31 | Outpatient (CLI) | payer MEDICARE, OTHER ==
[2018-03-31 12:49] LABS: BUN/CREATININE RATIO 12; CALCIUM 9.2 MG/DL (8.5-10.1); CARBON DIOXIDE 25 MMOL/L (21-32); CHLORIDE 102 MMOL/L (98-107); CREATININE SERUM 0.89 MG/DL (0.60-1.30); GFR ESTIMATED > 60; GLUCOSE 99 MG/DL (70-105); MAGNESIUM 1.9 MG/DL (1.8-2.4); POTASSIUM 3.5 MMOL/L (3.6-5.0); SODIUM 138 MMOL/L (135-145)
== END ==
LOC: LAB 12:13
PROVIDERS: ATTEND Internal Medicine Cardiovascular Disease
DX: I10 Essential (primary) hypertension (principal); I25.10 Atherosclerotic heart disease of native coronary artery without angina pectoris; E78.5 Hyperlipidemia, unspecified; M79.89 Other specified soft tissue disorders
CPT/HCPCS: 36415; 80048; 83735

== ENCOUNTER → 2018-04-14 | Outpatient (CLI) | payer MEDICARE, OTHER ==
[~2018-04-14] MED LIST changes: +CATHETER FLUSH 10 ML SYR IV PRN; +REGADENOSON 0.4 MG/5 ML SYR (LEXISCAN) IV ONE
[2018-04-14 08:54] VITALS: BP 167/75
--- NOTE | 2018-04-18 14:05 | STRESS TEST ---
DATE OF SERVICE: 04/18/2018 RESTING AND POST REGADENOSON TECHNETIUM-99M TETROFOSMIN SPECT CT IMAGING ORDERING PHYSICIAN: Prachi Stewart APRN PRIMARY PHYSICIAN: Dr. Frye. CLINICAL DIAGNOSES: Coronary artery disease, hypertension. Baseline images were carried out after injection of 10.63 mCi of technetium-99m Tetrofosmin. This was followed by 0.4 mg regadenoson and 31.2 mCi of technetium-99m Tetrofosmin for stress imaging. The electrocardiogram showed sinus rhythm at baseline and did not change significantly with the regadenoson infusion. Review of images at rest and following stress does not indicate any significant perfusion defects consistent with significant myocardial ischemia or infarction. Gated images show normal global left ventricular systolic function with normal regional wall motion. Left ventricular ejection fraction is calculated to be 69%. Left ventricular end diastolic volume is 45 mL. TID is absent (1.02). CONCLUSIONS: 1. No evidence of any significant myocardial ischemia or infarction on this study. 2. Normal regional wall motion. 3. Normal global left ventricular systolic function with a calculated ejection fraction of 69%. Job ID: [id number] DocumentID: [id number] Dictated Date: 04/18/2018 13:16:55 Information Manager Date: 04/18/2018 14:05:35 Dictated By: CHAVEZ LR MD, MA, FACP, FACC,
== END ==
LOC: CARD 07:10
PROVIDERS: ATTEND Nurse Practitioner Family
DX: I10 Essential (primary) hypertension (principal); I25.10 Atherosclerotic heart disease of native coronary artery without angina pectoris; E78.5 Hyperlipidemia, unspecified; M79.89 Other specified soft tissue disorders
CPT/HCPCS: 78452; 93017

== ENCOUNTER 2018-05-10 10:16 | Outpatient (RCR) | payer MEDICARE, OTHER ==
[~2018-05-10 10:16] MED LIST changes: -AMLO2.5T3 PO; +AMLO2.5T4 PO; -GABA600T2 PO; +LOSA100T57 PO; -LOSA100T8 PO
[2018-05-10 10:40] LABS: BASOPHILS % (AUTO) 1 % (0-10); EOSINOPHILS # (AUTO) 0.1 10^3/uL (0.0-0.3); EOSINOPHILS % (AUTO) 1 % (0-10); HEMATOCRIT 32 % (35-52); HEMOGLOBIN 11.1 G/DL (11.5-16.0); LYMPHOCYTES # (AUTO) 0.9 X 10^3 (1.0-4.0); LYMPHOCYTES % (AUTO) 15 % (12-44); MEAN CORPUSCULAR HEMOGLOBIN 33 PG (25-34); MEAN CORPUSCULAR HGB CONC 34 G/DL (32-36); MEAN CORPUSCULAR VOLUME 96 FL (80-99); MEAN PLATELET VOLUME 8.7 FL (7.4-10.4); MONOCYTES # (AUTO) 0.6 X 10^3 (0.0-1.0); MONOCYTES % (AUTO) 10 % (0-12); NEUTROPHILS # (AUTO) 4.3 X 10^3 (1.8-7.8); NEUTROPHILS % (AUTO) 74 % (42-75); PLATELET COUNT 292 10^3/uL (130-400); WHITE BLOOD COUNT 5.9 10^3/uL (4.3-11.0)
[2018-05-10 11:02] LABS: CREATININE SERUM 0.97 MG/DL (0.60-1.30)
== END 2018-08-08 | disposition home or self-care (01) ==
LOC: LAB 10:16
PROVIDERS: ATTEND Internal Medicine Rheumatology
DX: Z51.81 Encounter for therapeutic drug level monitoring (principal); M06.09 Rheumatoid arthritis without rheumatoid factor, multiple sites; Z79.899 Other long term (current) drug therapy
CPT/HCPCS: 36415; 82565; 84460; 85025

== ENCOUNTER → 2018-05-10 | Outpatient (CLI) | payer MEDICARE, OTHER ==
[~2018-05-10] MED LIST changes: -CATHETER FLUSH 10 ML SYR IV PRN; -REGADENOSON 0.4 MG/5 ML SYR (LEXISCAN) IV ONE
== END ==
LOC: CARD 10:07
PROVIDERS: ATTEND Nurse Practitioner Family
DX: I10 Essential (primary) hypertension (principal); I25.10 Atherosclerotic heart disease of native coronary artery without angina pectoris; E78.5 Hyperlipidemia, unspecified; M79.89 Other specified soft tissue disorders; I08.0 Rheumatic disorders of both mitral and aortic valves
CPT/HCPCS: 93306

== ENCOUNTER 2018-10-19 19:44 | Inpatient (IN) | payer MEDICARE, OTHER | END 2018-10-24 15:00 | disposition home or self-care (01) | LOC: ER 19:44 → 4TH 23:15 ==

== ENCOUNTER 2018-10-24 16:44 | Emergency (ER) | payer MEDICARE, OTHER ==
[~2018-10-24] VITALS: Ht 167.6 cm; Wt 87.5 kg
[~2018-10-24 16:44] MED LIST changes: +ASPI-999 PO; +DICY20TA10 PO; +DOXY100T2 PO; +FURO40TA4 PO; +IBUP-1780 PO; +LISI40TA PO; +METO200T48 PO; +MIRT15TA6 PO; +POTA-53 PO; +SULF500T PO; +TRAZ-190 PO
--- OUTSIDE RECORDS SUMMARY | 2018-10-24 16:49 | XMS REPORT | Encounter Summary ---
Author Author [facility] Organization [facility] Address Unknown Phone Unavailable Care Team Providers Care Project Management Specialist Name Role Phone Kip Robledo MD Unavailable Aram Saavedra MD Unavailable Unavailable Asuncion Morel APRN Unavailable Unavailable Todd Howell MD Unavailable Romero Frye MD PCP Anselmo Cruz MD Unavailable Sarah Wagner MD Unavailable Jannette Herrera PA-C Unavailable Neha Schwartz RN Unavailable Unavailable Jocelyn Tomas OT Unavailable Unavailable Reason for Visit * Reason Comments General Question Encounter Details Care Team Description Date Type Department Raquel Lazaro MD [id number] [place], [place] [id number] General Question 08/03/2018 Telephone [facility] [id number] [place], [place] [id number] Social History Date Tobacco Use Types Packs/Day Years Used Never Smoker Smokeless Tobacco: Never Used Drinks/Week oz/Week Comments Alcohol Use 0 Standard drinks or equivalent 0.0 No Sex Assigned at Date Recorded Not on file Industry Job Start Date Occupation Not on file Not on file Not on file Travel End Travel History Travel Start No recent travel history available. documented as of this encounter Miscellaneous Notes * Telephone Encounter - Shalini Velasquez RN - 08/04/2018 9:46 AM CDT Left message for patient with the recommendation per Dr. Lazaro. Apologized giancarlo t there are no better options at this time but advised that we can discuss furth er at the f/u appointment. If she has further questions before then, she is wel come to call back. 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 The medications try to help with pain b ut do not alter the changes. * Telephone Encounter - Shalini Velasquez RN - 08/03/2018 4:37 PM CDT Message received from patient stating "I want to discuss a medication to stop th e advancement of arthritis in my hands. The right hand is worse than the left." Spoke with patient verified the medication the medications that she is currently on is Sulfaslazine, Plaquenil and Baclofen. Advised pt and that she has an esthela ointment coming up soon and she may need to wait to be seen before making changi ng. Patient states that she is loosing strength in her right hand and she doesn 't want it to get worse. Advised patient I will see if Dr. Lazaro has any recom mendation in the meantime. Routing to Dr. Lazaro for review and recommendations. documented in this encounter Plan of Treatment Not on filedocumented as of this encounter Visit Diagnoses Not on filedocumented in this encounter
--- OUTSIDE RECORDS SUMMARY | 2018-10-24 16:49 | XMS REPORT | Clinical Summary ---
Author Author [facility] Organization [facility] Address Unknown Phone Unavailable Care Team Providers Care Radiotelegraph Operator Name Role Phone Kip Robledo MD Unavailable Aram Saavedra MD Unavailable Unavailable Asuncion Morel APRN Unavailable Unavailable Todd Howell MD Unavailable Romero Frye MD PCP Anselmo Cruz MD Unavailable Sarah Wagner MD Unavailable Jannette Herrera PA-C Unavailable Neha Schwartz RN Unavailable Unavailable Jocelyn Tomas OT Unavailable Unavailable Source Comments Some departments are not documenting in the electronic medical record. If you d o not see the information that you expected, contact Release of Information in [facility] Health Information Management department at [phone] for further assistan ce in locating additional records.[facility] Allergies Comments Active Allergy Reactions Severity Noted Date Amitriptyline Hcl 03/01/2009 Azithromycin 03/01/2009 Celecoxib 03/01/2009 Propoxyphene 03/01/2009 N-Acetaminophen Severe joint stiffness and severe gum disease Divalproex SEE COMMENTS 03/01/2009 Erythromycin 03/01/2009 Gave her the "jerks" Involuntary muscle spasms Lamotrigine SEE COMMENTS Medium 11/15/2009 Meperidine HALLUCINATION 03/01/2009 S Morphine 03/01/2009 Ofloxacin 03/01/2009 Penicillins 03/01/2009 Tremors Muscle twitching Desvenlafaxine SEE COMMENTS 01/14/2011 Promethazine HALLUCINATION 03/01/2009 S Tramadol 09/20/2009 Medications End Date Status Medication Sig Dispensed Refills Start Date Active gabapentin (NEURONTIN) Take 2 Tabs 0 600 mg tablet by mouth Three Times Daily. Active citalopram (CELEXA) 40 mg Take 40 mg by 0 tablet mouth Daily. Active dicyclomine (BENTYL) 10 Take 10 mg by 0 mg capsule mouth As Needed. As directed Active nitroglycerin (NITROSTAT) take 1 tablet 0 0.4 mg tablet under tongue every 5 minutes for chest pain, call 911 if no relief after 3 tablets Active aspirin EC 81 mg tablet Take 81 mg by 0 mouth at bedtime daily. Active ALPRAZolam (XANAX) 1 mg Take 1 mg by 0 PO tablet mouth as Needed. anxiety Active bisoprolol/hydrochlorothi Take 1 Tab by 90 Tab 3 azide (ZIAC) 5/6.25 mg mouth daily. 2 tablet Active amLODIPine (NORVASC) 2.5 Take 1 Tab by 90 Tab 3 mg tablet mouth daily. 3 Active simvastatin (ZOCOR) 20 mg Take 1 Tab by 90 Tab 3 tabletIndications: mouth at 3 Coronary artery disease bedtime daily. Active nitrofurantoin SR Take 100 mg 0 (MACROBID) 100 mg capsule by mouth daily after breakfast. Active losartan(+) (COZAAR) 100 Take 100 mg 0 mg tablet by mouth at bedtime daily. Active PROPYLENE GLYCOL/PEG Place into 0 400/PF (SYSTANE (PF) OP) or around eye(s). Active colestipol (COLESTID) 1 Take 1 g by 0 gram tablet mouth. Active traZODone (DESYREL) 100 Take 100 mg 0 mg tablet by mouth. 7 Active folic acid (FOLVITE) 1 mg Take 1 tablet 90 tablet 3 tablet by mouth 8 daily. Active hydroxychloroquine Take one 180 tablet 1 (PLAQUENIL) 200 mg tablet tablet by 8 mouth twice daily. Take with food. Active diclofenac(+) (VOLTAREN) Apply 4g 300 g 0 1 % topical gel topically to 8 affected joints up to four times daily as needed for pain. Active ibuprofen (MOTRIN) 800 mg Take one 270 tablet 0 tablet tablet by 8 mouth every 8 hours as needed for Pain. Take with food. Active baclofen (LIORESAL) 10 mg TAKE TWO 540 tablet 1 tablet TABLETS BY 9 MOUTH THREE TIMES DAILY Active sulfaSALAzine Take three 540 tablet 1 (AZULFIDINE) 500 mg tablets by 9 tabletIndications: mouth twice Erosive (osteo)arthritis, daily. Therapeutic drug monitoring Active lisinopril (PRINIVIL, 0 ZESTRIL) 40 mg tablet 9 Active furosemide (LASIX) 40 mg 0 tablet 9 Active potassium chloride 0 (K-TAB) 20 mEq tablet 9 Active mirtazapine (REMERON) 15 Take 15 mg by 0 mg tablet mouth at bedtime daily. Active Problems Problem Noted Date Seronegative rheumatoid arthritis of multiple sites 03/21/2017 Right hand pain 03/12/2017 Encounter for [...] osteoarthritis of multiple sites 12/24/2014 Sjogren's disease 12/24/2014 Low back pain at multiple sites [...] due to lipid rich plaque 09/20/2009 Overview: 07/2003 PCI: Multiple intervention of RCA 05/2006 PCI RCA 01/2007 PCI 03/2007 PTCA 04/29/08 - Adenosine Thallium - EF 71%; low likelihood of ischemia 08/05/15 THALLIUM MPI (Via Liza): LVEF 73%. Normal regional wall motion. No evidence of myocardial ischemia or infarction. L ast Assessment & Plan: Patient concerned [...] ibuprofen, unless recommended by a physician. Encounters Care Team Description Date Type Specialty Anselmo Cruz MD Nuclear sclerosis of both eyes (Primary Dx); Encounter for long-term (current) use of high-risk medication; Hyperopic astigmatism of both eyes; Sjogren's syndrome, with unspecified organ involvement (HCC); Dry eyes, both eyes 09/13/2018 Office Visit Ophthalmology Raquel Lazaro MD General Question 08/03/2018 Telephone Rheumatology from Last 3 Months Immunizations Name Administration Dates Next Due Flu Vaccine=>66 YO 02/09/2017 High-Dose [...] Krystle Alive Sister Liz Alive Social History Date Tobacco Use Types Packs/Day Years Used Never Smoker Smokeless Tobacco: Never Used Tobacco Cessation: Counseling Given: Yes Drinks/Week oz/Week Comments Alcohol Use 0 Standard drinks or equivalent 0.0 No Sex Assigned at Date Recorded Not on file Industry Job Start Date Occupation Not on file Not on file Not on file Travel End Travel History Travel Start No recent travel history available. Last Filed Vital Signs Reading Time Taken Comments Vital Sign 147/57 11/15/2017 12:48 PM CDT Blood Pressure 65 11/15/2017 12:41 PM CDT Pulse 37 C (98.6 F) 11/15/2017 12:41 PM CDT Temperature 16 11/15/2017 12:41 PM CDT Respiratory Rate 98% 11/15/2017 12:41 PM CDT Oxygen Saturation - - Inhaled Oxygen Concentration 81.6 kg (180 lb) 09/13/2018 3:53 PM CDT Weight 167.6 cm (5' 6") 09/13/2018 3:53 PM CDT Height 29.05 09/13/2018 3:53 PM CDT Body Mass Index Plan of Treatment Health Maintenance Due Date Last Done Comments PHYSICAL (COMPREHENSIVE) 12/19/1958 EXAM DTAP/TDAP VACCINES (1 - 12/19/1969 Tdap) BREAST CANCER SCREENING 1991 COLORECTAL CANCER 12/19/2001 SCREENING SHINGLES RECOMBINANT 12/19/2001 VACCINE (1 of 2) OSTEOPOROSIS 12/19/2016 SCREENING/MONITORING INFLUENZA VACCINE 01/31/2019 02/09/2017, 02/17/2016, 03/16/2003 PNEUMONIA (PCV13/PPSV23) 07/14/2021 07/14/2016, 10/11/2015 VACCINES (2 of 2 - PPSV23) HEPATITIS C SCREENING Completed 02/14/2016 Implants Device Identifier Shelf Expiration Date Model / Serial / Lot Implanted Type Area [facility] 06/03/2022 470-0002 / 0000 / [id number] Fngr Swnsn 2 Mcp Grmt Flxb Right: Fingers [employer] Implanted: Qty: 1 on 08/08/2015 by GRP:Sarah Zhu MD at [facility] Procedures Comments Procedure Name Priority Date/Time Associated Diagnosis VISUAL FIELD, LIMITED Routine 09/13/2018 Encounter for long-term 5:55 PM CDT (current) use of high-risk medication SCAN COMP OPHTHAL DIAG Routine 09/13/2018 Encounter for long-term IMG, POS SEG, RETINA 5:54 PM CDT (current) use of high-risk medication EYE EXAM-SCAN 09/13/2018 12:00 AM CDT from Last 3 Months Results * VISUAL FIELD, LIMITED (09/13/2018 5:55 PM CDT) Specimen Narrative Performed At Performing Organization Address [facility] Phone Number [facility] [address] [place] [address] Floor * SCAN COMP OPHTHAL DIAG IMG, POS SEG, RETINA (09/13/2018 5:54 PM CDT) Specimen Narrative Performed At Performing Organization Address [facility] Phone Number [facility] [address] [place] [address], [address] [place] [address] Floor * EYE EXAM-SCAN (09/13/2018 12:00 AM CDT) Narrative Performed At Ordered by an unspecified provider. 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
--- OUTSIDE RECORDS SUMMARY | 2018-10-24 16:49 | XMS REPORT | Encounter Summary ---
Author Author [facility] Organization [facility] Address Unknown Phone Unavailable Care Team Providers Care Apparel Manufacture Instructor Name Role Phone Kip Robledo MD Unavailable Aram Saavedra MD Unavailable Unavailable Asuncion Morel APRN Unavailable Unavailable Todd Howell MD Unavailable Romero Frye MD PCP Anselmo Cruz MD Unavailable Sarah Wagner MD Unavailable Jannette Herrera PA-C Unavailable Neha Schwartz RN Unavailable Unavailable Jocelyn Tomas OT Unavailable Unavailable Reason for Visit * Reason Comments Eye Exam Last eye exam 07/01/2017 for the use of plaquenil. Medication Update No eye medications in use. Vision Change She notes small print is hard to read. Last glasses 9 years. Itchy Eye Frequent itchy eyes for the last couple years worse in the last 6 months. Tearing, Eye She notes some excessive tearing in the left eye. Other She wants a new glasses Rx today. No Complaint She has no other concerns or complaints about her eyes or her vision. Encounter Details Care Team Description Date Type Department Anselmo Cruz MD [address] [place] [address] Nuclear sclerosis of both eyes (Primary Dx); Encounter for long-term (current) use of high-risk medication; Hyperopic astigmatism of both eyes; Sjogren's syndrome, with unspecified organ involvement (HCC); Dry eyes, both eyes 09/13/2018 Office Visit [facility] [address] [place] [address] Social History Date Tobacco Use Types Packs/Day [...] history available. documented as of this encounter Last Filed Vital Signs Reading Time Taken Comments Vital Sign - - Blood Pressure - - Pulse - - Temperature - - Respiratory Rate - - Oxygen Saturation - - Inhaled Oxygen Concentration 81.6 kg (180 lb) 09/13/2018 3:53 PM CDT Weight 167.6 cm (5' 6") 09/13/2018 3:53 PM CDT Height 29.05 09/13/2018 3:53 PM CDT Body Mass Index documented in this encounter Progress Notes * Anselmo Cruz MD - 09/13/2018 3:30 PM CDT Margarette is a 67 y.o. female that had concerns including Eye Exam (Last eye exam 07/01 for the use of plaquenil.); Medication Update (No eye medications in use.) ; Vision Change (She notes small print is hard to read. Last glasses 9 years.); Itchy Eye (Frequent itchy eyes for the last couple years worse in the last 6 mon ths.); Tearing, Eye (She notes some excessive tearing in the left eye.); Other ( She wants a new glasses Rx today.); and No Complaint (She has no other concerns or complaints about her eyes or her vision.). HPI, Assessment and Plan: There were no encounter diagnoses. Doing well w eyes, wants new spectacle rs and should help, field still smaller than last visit but if helping all right to continue but needs to annabel [address]-OCT wnl. Fundus exam shows no evidence of toxicity from use of hydroxychloroquine.Started 2011 400 mg daily not sure but she will ask if dose can be reduced But still having a lot od joint complaints. Cont to monitor annabel 4-6 mo documented in this encounter Plan of Treatment Not on filedocumented as of this encounter Procedures Comments Procedure Name Priority Date/Time Associated Diagnosis VISUAL FIELD, LIMITED Routine 09/13/2018 Encounter for long-term 5:55 PM CDT (current) use of high-risk medication SCAN COMP OPHTHAL DIAG Routine 09/13/2018 Encounter for long-term IMG, POS SEG, RETINA 5:54 PM CDT (current) use of high-risk medication EYE EXAM-SCAN 09/13/2018 12:00 AM CDT documented in this encounter Results * EYE EXAM-SCAN (09/13/2018 12:00 AM CDT) Narrative Performed At Ordered by an unspecified provider. documented in this encounter Visit Diagnoses Diagnosis Nuclear sclerosis of both eyes - Primary Encounter for long-term (current) use of high-risk medication Encounter for long-term (current) use of other medications Hyperopic astigmatism of both eyes Sjogren's syndrome, with unspecified organ involvement (HCC) Dry eyes, both eyes Tear film insufficiency, unspecified documented in this encounter
--- OUTSIDE RECORDS SUMMARY | 2018-10-24 16:50 | XMS REPORT | Encounter Summary ---
Author Author [facility] Organization [facility] Address Unknown Phone Unavailable Care Team Providers Care Office Technology Instructor Name Role Phone Kip Robledo MD Unavailable Aram Saavedra MD Unavailable Unavailable Asuncion Morel APRN Unavailable Unavailable Todd Howell MD Unavailable Romero Frye MD PCP Anselmo Cruz MD Unavailable Sarah Wagner MD Unavailable Jannette Herrera PA-C Unavailable Neha Schwartz RN Unavailable Unavailable Jocelyn Tomas OT Unavailable Unavailable Reason for Visit * Reason Comments Appointment Request Encounter Details Care Team Description Date Type Department Raquel Lazaro MD [id number] [place] [address] Appointment Request 05/26/2018 Telephone [facility] [address] [phone] Social History Date Tobacco Use Types Packs/Day [...] encounter Miscellaneous Notes * Telephone Encounter - Love Eddy RN - 05/26/2018 1:06 PM PROGRAM DIRECTOR GROUP WORK Called and offered appointment Wednesday06/03/2018 1:30 PM [facility] with Antonia Whatley APRN, patient confirmed, aware of location, notified scheduling to confirm. Kept 10/[address] Lazaro as well. RAM DIRECTOR GROUP WORK documented in this encounter Plan of Treatment Not on filedocumented as of this encounter Visit Diagnoses Not on filedocumented in this encounter
--- OUTSIDE RECORDS SUMMARY | 2018-10-24 16:50 | XMS REPORT | Encounter Summary ---
Author Author [facility] Organization [facility] Address Unknown Phone Unavailable Care Team Providers Care Radio Message Router Name Role Phone Kip Robledo MD Unavailable Aram Saavedra MD Unavailable Unavailable Asuncion Morel APRN Unavailable Unavailable Todd Howell MD Unavailable Romero Frye MD PCP Anselmo Cruz MD Unavailable Sarah Wagner MD Unavailable Jannette Herrera PA-C Unavailable Neha Schwartz RN Unavailable Unavailable Jocelyn Tomas OT Unavailable Unavailable Reason for Visit * Reason Comments Medication Refill Encounter Details Care Team Description Date Type Department Raquel Lazaro MD [address] [facility] [id number] [place] [address] Erosive (osteo)arthritis; Therapeutic drug monitoring 05/09/2018 Refill [facility] [address] [place] [address] Social History Date Tobacco Use Types Packs/Day [...] Telephone Encounter - Love Eddy RN - 05/20/2018 2:58 PM VACUUM CLOSING MACHINE OPERATOR Per Dr. Lazaro, left voicemail advising patient to return call to discuss appoin tment late May 2018 at [facility] with MELLY on Wednesday or Wednesday while Dr. Lazaro is also there. UM CLOSING MACHINE OPERATOR * Telephone Encounter - Love Eddy RN - 05/09/2018 1:36 PM VACUUM CLOSING MACHINE OPERATOR Patient called requesting refills of SSZ and baclofen. Patient last seen 11/16/19, scheduled for follow-up 10/24/2018 (cancelled appointment for today as she is heading to [place] again soon). Last labs 02/19/2018. Advised patient to obtain l abs soon, as previously advised, [facility] has orders on file. Patient states she will have labs drawn today. Patient wanting 3 month supply of medications. P er 02/28/2018 phone note "called and advised patient to increase SSZ to 1500mg B ID" Patient also requesting sooner appointment with Dr. Lazaro, inquiring about last week of May. Routing to Dr. Lazaro for approval and appointment inquiry - schedule with ARTIFICIAL LEATHER CALENDER OPERATOR - 05/30/2018 or 06/03/2018? UM CLOSING MACHINE OPERATOR documented in this encounter Plan of Treatment Not on filedocumented as of this encounter Visit Diagnoses Diagnosis Erosive (osteo)arthritis Therapeutic drug monitoring Encounter for therapeutic drug monitoring documented in this encounter
--- OUTSIDE RECORDS SUMMARY | 2018-10-24 16:50 | XMS REPORT | Encounter Summary ---
Author Author [facility] Organization [facility] Address Unknown Phone Unavailable Care Team Providers Care Exercise Instruct Name Role Phone Kip Robledo MD Unavailable Aram Saavedra MD Unavailable Unavailable Asuncino Morel APRN Unavailable Unavailable Todd Howlel MD Unavailable Romero Frye MD PCP Anselmo Cruz MD Unavailable Sarah Wagner MD Unavailable Jannette Herrera PA-C Unavailable Neha Schwartz RN Unavailable Unavailable Jocelyn Tomas OT Unavailable Unavailable Reason for Visit * Reason Comments Imaging [facility] Encounter Details Care Team Description Date Type Department Raquel Lazaro MD [id number] [place] [address] Imaging ([facility]) 05/16/2018 Telephone [facility] [id number] [place], [place] [phone] Social History Date Tobacco Use Types Packs/Day [...] encounter Miscellaneous Notes * Telephone Encounter - Fina Hernandez - 05/16/2018 11:46 AM REPAIR ORDER CLERK Imaging disc uploaded to PACS and mailed to patient. IR ORDER CLERK documented in this encounter Plan of Treatment Not on filedocumented as of this encounter Visit Diagnoses Not on filedocumented in this encounter
--- OUTSIDE RECORDS SUMMARY | 2018-10-24 16:54 | XMS REPORT | Continuity of Care Document ---
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 I10 ESSENTIAL (PRIMARY) HYPERTENSION 11/02/2017 ARNULFO YAO L LINE REPAIRER TOWER Ot I25.10 ATHSCL HEART DISEASE OF [place] CORONARY 11/02/2017 YAO ARREDONDO L LINE REPAIRER TOWER Ot M79.89 OTHER SPECIFIED SOFT TISSUE DISORDERS 11/02/2017 SAMIA CADET, JOSEPH Spivey Ot 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 11/02/2017 SAMIA CADET, JOSEPH Spivey Ot Z79.899 OTHER SHELTER (CURRENT) DRUG THERAPY 11/23/2017 YAO ARREDONDO L LINE REPAIRER TOWER Ot E87.6 HYPOKALEMIA 11/23/2017 YAO ARREDONDO L LINE REPAIRER TOWER Ot I10 ESSENTIAL (PRIMARY) HYPERTENSION 11/23/2017 YAO ARREDONDO L LINE REPAIRER TOWER Ot I25.10 ATHSCL HEART DISEASE OF [place] CORONARY 11/23/2017 YAO ARREDONDO L LINE REPAIRER TOWER Ot M79.89 OTHER SPECIFIED SOFT TISSUE DISORDERS 11/25/2017 JOSEPH GRACIA MD Ot 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 11/25/2017 SAMIA CADET, JOSEPH Spivey Ot Z79.899 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 [employer] 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 LAYER'S HELPER (CURRENT) DRUG THERAPY 02/19/2018 FELY CADET, WILSON R Ot 433.10 CAROTID ARTERY OCCLUSION W O CEREBRAL IN 02/19/2018 FELY CADET, WILSON R Ot 785.9 CARDIOVAS SYS SYMP NEC 02/19/2018 FELY CADET, WILSON R Ot 816.01 FX MID/PRX PHAL, HAND-CL 02/19/2018 FELY CADET, WILSON R Ot E000.8 OTHER EXTERNAL CAUSE STATUS 02/19/2018 FELY CADET, WILSON R Ot E849.0 ACCIDENT IN HOME 02/19/2018 FELY CADET, WILSON R Ot E888.9 FALL NOS 02/19/2018 FELY CADET, WILSON R Ot V76.12 OTH SCREEN MAMMO-MALIGN NEOPLASM OF [place] 02/19/2018 BOB MORENO DO S Ot 300.00 ANXIETY STATE NOS 02/19/2018 BOB MORENO DO S Ot 627.1 POSTMENOPAUSAL BLEEDING 02/19/2018 BOB MORENO DO S Ot V72.84 EXAM PRE-OPERATIVE NOS 02/19/2018 YAO ARREDONDO LINE REPAIRER TOWER Ot 272.4 HYPERLIPIDEMIA NEC/NOS 02/19/2018 YAO ARREDONDO LINE REPAIRER TOWER Ot 278.00 OBESITY, NOS 02/19/2018 YAO ARREDONDO LINE REPAIRER TOWER Ot 296.50 BIPOL I, REC EPIS (OR CURRENT) DEPRESSED 02/19/2018 YAO ARREDONDO LINE REPAIRER TOWER Ot 401.9 HYPERTENSION NOS 02/19/2018 YAO ARREDONDO LINE REPAIRER TOWER Ot 414.00 CORON ATHEROSCLER NOS TYPE VESSEL, NATIV 02/19/2018 YAO ARREDONDO LINE REPAIRER TOWER Ot 716.90 ARTHROPATHY NOS-UNSPEC 02/19/2018 YAO ARREDONDO LINE REPAIRER TOWER Ot 780.4 DIZZINESS AND GIDDINESS 02/19/2018 YAO ARREDONDO LINE REPAIRER TOWER Ot 786.05 SHORTNESS OF BREATH 02/19/2018 ADRIENNE CADET, ROCHELLE [place] Ot 599.0 URIN TRACT INFECTION NOS 02/19/2018 FELY CADET, WILSON R Ot 611.72 LUMP OR MASS IN BREAST 02/19/2018 FELY CADET, WILSON R Ot 793.82 INCONCLUSIVE MAMMOGRAM 02/19/2018 Ot E78.4 OTHER HYPERLIPIDEMIA 02/19/2018 Ot I10 ESSENTIAL (PRIMARY) HYPERTENSION 02/19/2018 Ot I25.10 ATHSCL HEART DISEASE OF [place] CORONARY 02/19/2018 Ot R07.89 OTHER CHEST PAIN 02/19/2018 BE CADET FACC, ALI FACP CCDS Ot E78.4 OTHER HYPERLIPIDEMIA 02/19/2018 BE CADET FACC, ALI FACP CCDS Ot I10 ESSENTIAL (PRIMARY) HYPERTENSION 02/19/2018 BE CADET FACC, ALI FACP CCDS Ot I25.10 ATHSCL HEART DISEASE OF [place] CORONARY 02/19/2018 BE CADET FACC, ALI FACP CCDS Ot I65.23 OCCLUSION AND STENOSIS OF BILATERAL [place] 02/19/2018 BE CADET FACC, ALI FACP CCDS Ot R07.89 OTHER CHEST PAIN 02/19/2018 RODRICK CADET, RON Lam Ot M19.90 UNSPECIFIED OSTEOARTHRITIS, UNSPECIFIED 02/19/2018 RON MENSAH MD Ot Z51.81 ENCOUNTER FOR THERAPEUTIC DRUG LEVEL MON 02/19/2018 RODRICK CADET, RON Lam Ot Z79.899 OTHER SHELTER (CURRENT) DRUG THERAPY 02/19/2018 FELY CADET, WILSON R Ot J34.89 OTHER SPECIFIED DISORDERS OF NOSE AND NA 02/19/2018 FELY CADET, WILSON R Ot R05 COUGH 02/19/2018 FELY CADET, WILSON R Ot R19.7 DIARRHEA, UNSPECIFIED 02/19/2018 FELY CADET, WILSON R Ot J34.89 OTHER SPECIFIED DISORDERS OF NOSE AND NA 02/19/2018 FELY CADET, WILSON R Ot R05 COUGH 02/19/2018 FELY CADET, WILSON R Ot R19.7 DIARRHEA, UNSPECIFIED 02/19/2018 FELY CADET, WILSON R Ot R19.7 DIARRHEA, UNSPECIFIED 02/19/2018 FELY CADET, WILSON R Ot R19.7 DIARRHEA, UNSPECIFIED 02/19/2018 RON MENSAH MD Ot M19.90 UNSPECIFIED OSTEOARTHRITIS, UNSPECIFIED 02/19/2018 RON MENSAH MD Ot Z51.81 ENCOUNTER FOR THERAPEUTIC DRUG LEVEL MON 02/19/2018 RON MENSAH MD Ot Z79.899 OTHER [employer] FLOOR LAYER'S HELPER (CURRENT) DRUG THERAPY 02/19/2018 BAIMA YAO L LINE REPAIRER TOWER Ot I10 ESSENTIAL (PRIMARY) HYPERTENSION 02/19/2018 MERCYMA YAO L LINE REPAIRER TOWER Ot I25.10 ATHSCL HEART DISEASE OF [place] CORONARY 02/19/2018 ARNULFO YAO L LINE REPAIRER TOWER Ot M19.90 UNSPECIFIED OSTEOARTHRITIS, UNSPECIFIED 02/19/2018 BAIMA YAO L LINE REPAIRER TOWER Ot R07.89 OTHER CHEST PAIN 02/19/2018 RIOS ARREDONDOHER L LINE REPAIRER TOWER Ot Z51.81 ENCOUNTER FOR THERAPEUTIC DRUG LEVEL MON 02/19/2018 RIOS ARREDONDOHER L LINE REPAIRER TOWER Ot Z79.899 OTHER [employer] FLOOR LAYER'S HELPER (CURRENT) DRUG THERAPY 02/19/2018 BE CADET FACFloyd, ALI FACP CCDS Ot E78.4 OTHER HYPERLIPIDEMIA 02/19/2018 BE CADET FACC, ALI FACP CCDS Ot I10 ESSENTIAL (PRIMARY) HYPERTENSION 02/19/2018 BE CADET FACC, ALI FACP CCDS Ot I25.10 ATHSCL HEART DISEASE OF [place] CORONARY 02/19/2018 EB CADET FACC, ALI FACP CCDS Ot I65.23 OCCLUSION AND STENOSIS OF BILATERAL [place] 02/19/2018 BE CADET FACC, ALI FACP CCDS Ot M19.90 UNSPECIFIED OSTEOARTHRITIS, UNSPECIFIED 02/19/2018 BE CADET FACC, ALI FACP CCDS Ot R42 DIZZINESS AND GIDDINESS 02/19/2018 BE CADET FACC, ALI FACP CCDS Ot Z51.81 ENCOUNTER FOR THERAPEUTIC DRUG LEVEL MON 02/19/2018 BE CADET FACFloyd, ALI FACP CCDS Ot Z79.899 OTHER [employer] FLOOR LAYER'S HELPER (CURRENT) DRUG THERAPY 02/19/2018 RON MENSAH MD Ot M19.90 UNSPECIFIED OSTEOARTHRITIS, UNSPECIFIED 02/19/2018 RON MENSAH MD Ot Z51.81 ENCOUNTER FOR THERAPEUTIC DRUG LEVEL MON 02/19/2018 RON MENSAH MD Ot Z79.899 OTHER [employer] FLOOR LAYER'S HELPER (CURRENT) DRUG THERAPY 02/19/2018 LISA, JAYASHREE J SWAGING MACHINE OPERATOR Ot J34.2 DEVIATED NASAL SEPTUM 02/19/2018 LISA, JAYASHREE J SWAGING MACHINE OPERATOR Ot J39.8 OTHER SPECIFIED DISEASES OF UPPER RESPIR 02/19/2018 LISA, JAYASHREE J SWAGING MACHINE OPERATOR Ot Z86.19 PERSONAL HISTORY OF OTHER INFECTIOUS AND 02/19/2018 RON MENSAH MD Ot M19.91 PRIMARY OSTEOARTHRITIS, UNSPECIFIED SITE 02/19/2018 RON MENSAH MD Ot Z79.899 OTHER [employer] FLOOR LAYER'S HELPER (CURRENT) DRUG THERAPY 02/19/2018 YAO ARREDONDO LINE REPAIRER TOWER Ot E87.6 HYPOKALEMIA 02/19/2018 YAO ARREDONDO LINE REPAIRER TOWER Ot I10 ESSENTIAL (PRIMARY) HYPERTENSION 02/19/2018 YAO ARREDONDO LINE REPAIRER TOWER Ot I25.10 ATHSCL HEART DISEASE OF [place] CORONARY 02/19/2018 YAO ARREDONDO LINE REPAIRER TOWER Ot M79.89 OTHER SPECIFIED SOFT TISSUE DISORDERS 02/19/2018 JOSEPH GRACIA MD Ot 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 02/19/2018 JOSEPH GRACIA MD Ot Z79.899 OTHER SHELTER (CURRENT) DRUG THERAPY 03/28/2018 JOSEPH GRACIA MD Ot M15.4 EROSIVE (OSTEO)ARTHRITIS 03/28/2018 JOSEPH GRACIA MD Ot Z51.81 ENCOUNTER FOR THERAPEUTIC DRUG LEVEL MON 03/28/2018 JOSEPH GRACIA MD Ot Z79.899 OTHER SHELTER (CURRENT) DRUG THERAPY 04/04/2018 BE CADET FACC, ALI FACP CCDS Ot E78.5 HYPERLIPIDEMIA, UNSPECIFIED 04/04/2018 BE CADET FACC, ALI FACP CCDS Ot I10 ESSENTIAL (PRIMARY) HYPERTENSION 04/04/2018 BE CADET FACC, ALI FACP CCDS Ot I25.10 ATHSCL HEART DISEASE OF [place] CORONARY 04/04/2018 BE CADET [facility], [facility] Ot M79.89 OTHER SPECIFIED SOFT TISSUE DISORDERS 04/18/2018 BAIMA, YAO L LINE REPAIRER TOWER Ot E78.5 HYPERLIPIDEMIA, UNSPECIFIED 04/18/2018 BAIMA, YAO L LINE REPAIRER TOWER Ot I10 ESSENTIAL (PRIMARY) HYPERTENSION 04/18/2018 BAIMA, YAO L LINE REPAIRER TOWER Ot I25.10 ATHSCL HEART DISEASE OF [place] CORONARY 04/18/2018 BAIMA, YAO L LINE REPAIRER TOWER Ot M79.89 OTHER SPECIFIED SOFT TISSUE DISORDERS 04/20/2018 BAIMA, YAO L LINE REPAIRER TOWER Ot E78.5 HYPERLIPIDEMIA, UNSPECIFIED 04/20/2018 BAIMA, YAO L LINE REPAIRER TOWER Ot I10 ESSENTIAL (PRIMARY) HYPERTENSION 04/20/2018 BAIMA, YAO L LINE REPAIRER TOWER Ot I25.10 ATHSCL HEART DISEASE OF [place] CORONARY 04/20/2018 BAIMA, YAO L LINE REPAIRER TOWER Ot M79.89 OTHER SPECIFIED SOFT TISSUE DISORDERS 05/05/2018 BAIMA, YAO L LINE REPAIRER TOWER Ot E78.5 HYPERLIPIDEMIA, UNSPECIFIED 05/05/2018 BAIMA, YAO L LINE REPAIRER TOWER Ot I10 ESSENTIAL (PRIMARY) HYPERTENSION 05/05/2018 BAIMA, YAO L LINE REPAIRER TOWER Ot I25.10 ATHSCL HEART DISEASE OF [place] CORONARY 05/05/2018 BAIMA, YAO L LINE REPAIRER TOWER Ot M79.89 OTHER SPECIFIED SOFT TISSUE DISORDERS 05/11/2018 BAIMA, YAO L LINE REPAIRER TOWER Ot E78.5 HYPERLIPIDEMIA, UNSPECIFIED 05/11/2018 BAIMA, YAO L LINE REPAIRER TOWER Ot 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 05/11/2018 BAIMA, YAO L LINE REPAIRER TOWER Ot I10 ESSENTIAL (PRIMARY) HYPERTENSION 05/11/2018 BAIMA, YAO L LINE REPAIRER TOWER Ot I25.10 ATHSCL HEART DISEASE OF [place] CORONARY 05/11/2018 BAIMA, YAO L LINE REPAIRER TOWER Ot M79.89 OTHER SPECIFIED SOFT TISSUE DISORDERS 05/20/2018 JOSEPH GRACIA MD Ot M15.4 EROSIVE (OSTEO)ARTHRITIS 05/20/2018 JOSEPH GRACIA MD Ot Z51.81 ENCOUNTER FOR THERAPEUTIC DRUG LEVEL MON 05/20/2018 JOSEPH GRACIA MD Ot Z79.899 OTHER SHELTER (CURRENT) DRUG THERAPY 06/06/2018 YAO ARREDONDO LINE REPAIRER TOWER Ot E78.5 HYPERLIPIDEMIA, UNSPECIFIED 06/06/2018 YAO ARREDONDO LINE REPAIRER TOWER Ot 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 06/06/2018 YAO ARREDONDO LINE REPAIRER TOWER Ot I10 ESSENTIAL (PRIMARY) HYPERTENSION 06/06/2018 MERCYAYO DUTTA LINE REPAIRER TOWER Ot I25.10 ATHSCL HEART DISEASE OF [place] CORONARY 06/06/2018 MERCYTRA YAO Spivey LINE REPAIRER TOWER Ot M79.89 OTHER SPECIFIED SOFT TISSUE DISORDERS 06/24/2018 JOSEPH GRACIA MD L Ot 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 06/24/2018 JOSEPH GRACIA MD Ot Z51.81 ENCOUNTER FOR THERAPEUTIC DRUG LEVEL MON 06/24/2018 JOSEPH GRACIA MD Ot Z79.899 OTHER SHELTER (CURRENT) DRUG THERAPY 08/08/2018 JOSEPH GRACIA MD Ot 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 08/08/2018 JOSEPH GRACIA MD Ot Z51.81 ENCOUNTER FOR THERAPEUTIC DRUG LEVEL MON 08/08/2018 JOSEPH GRACIA MD Ot Z79.899 OTHER PARQUET FLOOR LAYER'S HELPER (CURRENT) DRUG THERAPY 08/09/2018 JOSEPH GRACIA MD Ot 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 08/09/2018 JOSEPH GRACIA MD Ot Z51.81 ENCOUNTER FOR THERAPEUTIC DRUG LEVEL MON 08/09/2018 JOSEPH GRACIA MD Ot Z79.899 OTHER SHELTER (CURRENT) DRUG THERAPY 10/19/2018 FELY CADET, WILSON R Ot R19.7 DIARRHEA, UNSPECIFIED 10/19/2018 FELY CADET WILSON R Ot R19.7 DIARRHEA, UNSPECIFIED 10/19/2018 JOSEPH GRACIA MD Ot M15.4 EROSIVE (OSTEO)ARTHRITIS 10/19/2018 JOSEPH GRACIA MD L Ot Z51.81 ENCOUNTER FOR THERAPEUTIC DRUG LEVEL MON 10/19/2018 JOSEPH GRACIA MD L Ot Z79.899 OTHER PARQUET FLOOR LAYER'S HELPER (CURRENT) DRUG THERAPY 10/19/2018 JOSEPH GRACIA MD Ot 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 10/19/2018 JOSEPH GRACIA MD L Ot Z51.81 ENCOUNTER FOR THERAPEUTIC DRUG LEVEL MON 10/19/2018 SAMIA CADET, JOSEPH Allyssa Ot Z79.899 OTHER [employer] FLOOR LAYER'S HELPER (CURRENT) DRUG THERAPY Procedures There is no [...] Automated erythrocyte mean corpuscular hemoglobin concentration measurement (mass/volume) 35 g/dL 32-36 Automated erythrocyte distribution width ratio 12.6 % 10.0- 14.5 Automated blood platelet count (count/volume) 264 10*3/uL [...] Blood monocytes automated count (number/volume) 0.4 10*3 0.0- 1.0 Automated eosinophil count 0.1 10*3/uL 0.0-0.3 Automated [...] Serum or plasma aspartate aminotransferase measurement (enzymatic activity/volume) 25 U/L 5-34 Serum or plasma alanine aminotransferase measurement (enzymatic activity/volume) 20 U/L 0-55 Serum or plasma protein measurement (mass/volume) 6.0 g/dL 6.4-8.2 Serum or plasma albumin measurement (mass/volume) 4.1 g/dL 3.2-4.5 Magnesium - 01/15/16 17:52 Magnesium 2.1 mg/dL 1.8-2.4 Serum or plasma creatine kinase measurement (enzymatic activity/volume) - 01/15/16 17:52 Serum or plasma creatine kinase measurement (enzymatic activity/volume) 119 U/L 29-168 Serum or plasma creatine kinase MB measurement (enzymatic activity/volume) - 01/15/16 17:52 Serum or plasma creatine kinase MB measurement (enzymatic activity/volume) 1.4 ng/mL <6.6 Serum or plasma troponin i.cardiac measurement (mass/volume) - 01/15/16 17:52 Serum or plasma troponin i.cardiac measurement (mass/volume) < ng/mL <0.30 Serum or plasma amylase measurement (enzymatic activity/volume) - 01/15/16 17:52 Serum or plasma amylase measurement (enzymatic activity/volume) 54 U/L 25-125 Lipase - 01/15/16 17:52 Lipase 31 U/L 8-78 Serum or plasma lithium measurement (moles/volume) - 01/15/16 17:52 BNP level 104.7 pg/mL <100.0 Serum or plasma troponin i.cardiac measurement (mass/volume) - 01/15/16 23:43 Serum or plasma troponin i.cardiac measurement (mass/volume) < ng/mL <0.30 Myoglobin, serum - 01/15/16 23:43 Myoglobin, [...] Automated erythrocyte mean corpuscular hemoglobin concentration measurement (mass/volume) 36 g/dL 32-36 Automated erythrocyte distribution width ratio 12.1 % 10.0- 14.5 Automated blood platelet count (count/volume) 274 10*3/uL [...] Blood monocytes automated count (number/volume) 0.2 10*3 0.0- 1.0 Automated eosinophil count 0.0 10*3/uL 0.0-0.3 Automated [...] Serum or plasma aspartate aminotransferase measurement (enzymatic activity/volume) 20 U/L 5-34 Serum or plasma alanine aminotransferase measurement (enzymatic activity/volume) 14 U/L 0-55 Serum or plasma protein measurement (mass/volume) 6.1 g/dL 6.4-8.2 Serum or plasma albumin measurement (mass/volume) 4.1 g/dL 3.2-4.5 Lipid 1996 panel - 01/16/16 03:43 Serum or plasma triglyceride measurement (mass/volume) 55 mg/dL <150 Serum or plasma cholesterol measurement (mass/volume) 177 mg/dL < 200 Serum or plasma cholesterol in HDL measurement (mass/volume) 58 mg/dL 40-60 Cholesterol in LDL [mass/volume] in serum or plasma by direct assay 105 mg/dL 1-129 Serum or plasma cholesterol in VLDL measurement (mass/volume) 11 mg/dL 5-40 Blood manual differential performed detection - 01/16/16 03:43 Blood monocytes/100 leukocytes 3 % NRG Manual blood segmented neutrophils/100 leukocytes 87 % NRG Blood band neutrophils/100 leukocytes 0 % NRG Manual blood lymphocytes/100 leukocytes 10 % NRG Manual eosinophils/100 leukocytes in nose 0 % NRG Manual blood basophils/100 leukocytes 0 % NRG Blood erythrocyte morphology finding identification NORMAL NRG Urine Culture, Routine - 05/23/16 17:11 Urine Culture, Routine Note Stool bacteria identification by culture - 07/27/16 [...] Automated erythrocyte mean corpuscular hemoglobin concentration measurement (mass/volume) 34 g/dL 32-36 Automated erythrocyte distribution width ratio 12.6 % 10.0- 14.5 Automated blood platelet count (count/volume) 264 10*3/uL [...] Blood monocytes automated count (number/volume) 0.7 10*3 0.0- 1.0 Automated eosinophil count 0.2 10*3/uL 0.0-0.3 Automated blood basophil count (count/volume) 0.0 10*3/uL 0.0-0.1 Serum or plasma creatinine measurement (mass/volume) - 08/04/16 16:34 Serum or plasma creatinine measurement (mass/volume) 0.82 mg/dL 0.60-1.30 Serum or plasma alanine aminotransferase measurement (enzymatic activity/volume) - 08/04/16 16:34 Serum or plasma alanine aminotransferase measurement (enzymatic activity/volume) 16 U/L 0-55 Serum or plasma C reactive protein measurement (mass/volume) - 08/04/16 16:34 Serum or plasma C reactive protein measurement (mass/volume) 0.20 mg/dL 0.00-0.50 Erythrocyte sedimentation rate by westergren method - 08/04/16 16:34 Erythrocyte sedimentation rate by westergren method 6 mm 0- 30 [id number] - 08/12/16 17:05 RESULTS NEGATIVE FOR ANTIGEN AND TOXIN A/B [facility] Stool bacteria identification by culture - 08/12/16 17:05 Stool bacteria identification by culture N [facility] Complete blood count (CBC) with automated white [...] Automated erythrocyte mean corpuscular hemoglobin concentration measurement (mass/volume) 34 g/dL 32-36 Automated erythrocyte distribution width ratio 12.7 % 10.0- 14.5 Automated blood platelet count (count/volume) 267 10*3/uL [...] Blood monocytes automated count (number/volume) 0.6 10*3 0.0- 1.0 Automated eosinophil count 0.1 10*3/uL 0.0-0.3 Automated [...] Serum or plasma aspartate aminotransferase measurement (enzymatic activity/volume) 25 U/L 5-34 Serum or plasma alanine aminotransferase measurement (enzymatic activity/volume) 18 U/L 0-55 Serum or plasma protein [...] Automated erythrocyte mean corpuscular hemoglobin concentration measurement (mass/volume) 33 g/dL 32-36 Automated erythrocyte distribution width ratio 13.1 % 10.0- 14.5 Automated blood platelet count (count/volume) 247 10*3/uL 130-400 Automated blood platelet mean volume measurement 8.8 [foz_us] 7.4-10.4 Serum or plasma creatinine measurement (mass/volume) - 01/07/17 15:51 Serum or plasma creatinine measurement (mass/volume) 0.82 mg/dL 0.60-1.30 Serum or plasma alanine aminotransferase measurement (enzymatic activity/volume) - 01/07/17 15:51 Serum or plasma alanine aminotransferase measurement (enzymatic activity/volume) 12 U/L 0-55 Serum or plasma C reactive protein measurement (mass/volume) - 01/07/17 15:51 Serum or plasma C reactive protein measurement (mass/volume) 0.26 mg/dL 0.00-0.50 Erythrocyte sedimentation rate by westergren method - 01/07/17 15:51 Erythrocyte sedimentation rate by westergren method 6 mm 0- 30 Automated blood complete blood count (hemogram) panel [...] Automated erythrocyte mean corpuscular hemoglobin concentration measurement (mass/volume) 34 g/dL 32-36 Automated erythrocyte distribution width ratio 14.3 % 10.0- 14.5 Automated blood platelet count (count/volume) 295 10*3/uL 130-400 Automated blood platelet mean volume measurement 9.5 [foz_us] 7.4-10.4 Serum or plasma creatinine measurement (mass/volume) - 03/30/17 13:43 Serum or plasma creatinine measurement (mass/volume) 0.76 mg/dL 0.60-1.30 Serum or plasma alanine aminotransferase measurement (enzymatic activity/volume) - 03/30/17 13:43 Serum or plasma alanine aminotransferase measurement (enzymatic activity/volume) 17 U/L 0-55 Serum or plasma C reactive protein measurement (mass/volume) - 03/30/17 13:43 Serum or plasma C reactive protein measurement (mass/volume) 0.06 mg/dL 0.00-0.50 Erythrocyte sedimentation rate by westergren method - 03/30/17 13:43 Erythrocyte sedimentation rate by westergren method 2 mm 0- 30 Complete blood count (CBC) with automated white [...] Automated erythrocyte mean corpuscular hemoglobin concentration measurement (mass/volume) 36 g/dL 32-36 Automated erythrocyte distribution width ratio 12.2 % 10.0- 14.5 Automated blood platelet count (count/volume) 360 10*3/uL [...] Blood monocytes automated count (number/volume) 0.6 10*3 0.0- 1.0 Automated eosinophil count 0.0 10*3/uL 0.0-0.3 Automated [...] Serum or plasma aspartate aminotransferase measurement (enzymatic activity/volume) 22 U/L 5-34 Serum or plasma alanine aminotransferase measurement (enzymatic activity/volume) 13 U/L 0-55 Serum or plasma protein measurement (mass/volume) 6.9 g/dL 6.4-8.2 Serum or plasma albumin measurement (mass/volume) 4.4 g/dL 3.2-4.5 Lipase - 05/22/17 08:50 Lipase 26 U/L 8-78 Influenza virus A and B antigen detection - 05/22/17 15:45 CALL POSITIVES (F1 HELP) [facility] FLU RESULT POSITIVE FOR INFLUENZA B ANTIGEN, NEG FOR A ANTIGEN, BY [facility] Complete urinalysis with reflex to culture - 05/22/17 16:35 Urine color determination YELLOW NRG Urine clarity determination SLIGHTLY CLOUDY NRG Urine pH measurement by test strip 6 5-9 Specific gravity of urine by test strip 1.020 1.016-1.022 Urine protein assay by test strip, semi-quantitative 1+ NEGATIVE Urine glucose detection by automated test strip NEGATIVE NEGATIVE Erythrocytes detection in urine sediment by light microscopy 1+ NEGATIVE Urine ketones detection by automated test strip 3+ NEGATIVE Urine nitrite detection by test strip NEGATIVE NEGATIVE Urine total bilirubin detection by test strip NEGATIVE NEGATIVE Urine urobilinogen measurement by automated test strip (mass/volume) 1 mg/dL NORMAL Urine leukocyte esterase detection by dipstick 1+ NEGATIVE Automated urine sediment erythrocyte count by microscopy (number/high power field) RARE NRG Automated urine sediment leukocyte count by microscopy (number/high power field) [HPF] NRG Bacteria detection in urine sediment by light microscopy NEGATIVE NRG Squamous epithelial cells detection in urine sediment by light microscopy 0-2 NRG Crystals detection in urine sediment by light microscopy NONE NRG Casts detection in urine sediment by light microscopy NONE NRG Mucus detection in urine sediment by light microscopy NEGATIVE NRG Complete urinalysis with reflex to culture YES NRG Bacterial urine culture - 05/22/17 16:35 URINE CULTURE RESULTS <10,000/ML NRG Automated blood complete blood count (hemogram) panel - 08/25/17 13:12 Blood leukocytes automated count (number/volume) 4.5 10*3/uL 4.3-11.0 Blood erythrocytes automated count (number/volume) 3.43 10*6/uL 4.35-5.85 Venous blood hemoglobin measurement (mass/volume) 10.6 g/dL 11.5-16.0 Blood hematocrit (volume fraction) 32 % 35-52 Automated erythrocyte mean corpuscular volume 94 [foz_us] 80-99 Automated erythrocyte mean corpuscular hemoglobin (mass per erythrocyte) 31 pg 25-34 Automated erythrocyte mean corpuscular hemoglobin concentration measurement (mass/volume) 33 g/dL 32-36 Automated erythrocyte distribution width ratio 13.5 % 10.0- 14.5 Automated blood platelet count (count/volume) 247 10*3/uL 130-400 Automated blood platelet mean volume measurement 8.5 [foz_us] 7.4-10.4 Serum or plasma creatinine measurement (mass/volume) - 08/25/17 13:12 Serum or plasma creatinine measurement (mass/volume) 0.80 mg/dL 0.60-1.30 Serum or plasma alanine aminotransferase measurement (enzymatic activity/volume) - 08/25/17 13:12 Serum or plasma alanine aminotransferase measurement (enzymatic activity/volume) 10 U/L 0-55 Serum or plasma C reactive protein measurement (mass/volume) - 08/25/17 13:12 Serum or plasma C reactive protein measurement (mass/volume) 0.22 mg/dL 0.00-0.50 Erythrocyte sedimentation rate by westergren method - 08/25/17 13:12 Erythrocyte sedimentation rate by westergren method 4 mm 0- 30 Complete blood count (CBC) with automated white blood cell (WBC) differential - 11/01/17 14:58 Blood leukocytes automated count (number/volume) 3.9 10*3/uL 4.3-11.0 Blood erythrocytes automated count (number/volume) 3.56 10*6/uL 4.35-5.85 Venous blood hemoglobin measurement (mass/volume) 11.5 g/dL 11.5-16.0 Blood hematocrit (volume fraction) 33 % 35-52 Automated erythrocyte mean corpuscular volume 92 [foz_us] 80-99 Automated erythrocyte mean corpuscular hemoglobin (mass per erythrocyte) 32 pg 25-34 Automated erythrocyte mean corpuscular hemoglobin concentration measurement (mass/volume) 35 g/dL 32-36 Automated erythrocyte distribution width ratio 12.7 % 10.0- 14.5 Automated blood platelet count (count/volume) 227 10*3/uL 130-400 Automated blood platelet mean volume measurement 8.8 [foz_us] 7.4-10.4 Automated blood neutrophils/100 leukocytes 64 % 42-75 Automated blood lymphocytes/100 leukocytes 23 % 12-44 Blood monocytes/100 leukocytes 11 % 0-12 Automated blood eosinophils/100 leukocytes 2 % 0-10 Automated blood basophils/100 leukocytes 1 % 0-10 Blood neutrophils automated count (number/volume) 2.5 10*3 1.8-7.8 Blood lymphocytes automated count (number/volume) 0.9 10*3 1.0-4.0 Blood monocytes automated count (number/volume) 0.4 10*3 0.0- 1.0 Automated eosinophil count 0.1 10*3/uL 0.0-0.3 Automated blood basophil count (count/volume) 0.0 10*3/uL 0.0-0.1 Complete blood count (CBC) with automated white blood cell (WBC) differential - 11/01/17 14:58 Blood leukocytes automated count (number/volume) 3.8 10*3/uL 4.3-11.0 Blood erythrocytes automated count (number/volume) 3.53 10*6/uL 4.35-5.85 Venous blood hemoglobin measurement (mass/volume) 11.4 g/dL 11.5-16.0 Blood hematocrit (volume fraction) 32 % 35-52 Automated erythrocyte mean corpuscular volume 92 [foz_us] 80-99 Automated erythrocyte mean corpuscular hemoglobin (mass per erythrocyte) 32 pg 25-34 Automated erythrocyte mean corpuscular hemoglobin concentration measurement (mass/volume) 35 g/dL 32-36 Automated erythrocyte distribution width ratio 12.7 % 10.0- 14.5 Automated blood platelet count (count/volume) 232 10*3/uL 130-400 Automated blood platelet mean volume measurement 9.0 [foz_us] 7.4-10.4 Automated blood neutrophils/100 leukocytes 64 % 42-75 Automated blood lymphocytes/100 leukocytes 24 % 12-44 Blood monocytes/100 leukocytes 10 % 0-12 Automated blood eosinophils/100 leukocytes 1 % 0-10 Automated blood basophils/100 leukocytes 0 % 0-10 Blood neutrophils automated count (number/volume) 2.5 10*3 1.8-7.8 Blood lymphocytes automated count (number/volume) 0.9 10*3 1.0-4.0 Blood monocytes automated count (number/volume) 0.4 10*3 0.0- 1.0 Automated eosinophil count 0.1 10*3/uL 0.0-0.3 Automated blood basophil count (count/volume) 0.0 10*3/uL 0.0-0.1 Comprehensive metabolic panel - 11/01/17 14:58 Serum or plasma sodium measurement (moles/volume) 134 mmol/L 135-145 Serum or plasma potassium measurement (moles/volume) 4.0 mmol/L 3.6-5.0 Serum or plasma chloride measurement (moles/volume) 100 mmol/L 98-107 Carbon dioxide 26 mmol/L 21-32 Serum or plasma anion gap determination (moles/volume) 8 mmol/L 5-14 Serum or plasma urea nitrogen measurement (mass/volume) 6 mg/dL 7-18 Serum or plasma creatinine measurement (mass/volume) 0.77 mg/dL 0.60-1.30 Serum or plasma urea nitrogen/creatinine mass ratio 8 NRG Serum or plasma creatinine measurement with calculation of estimated glomerular filtration rate > NRG Serum or plasma glucose measurement (mass/volume) 94 mg/dL 70-105 Serum or plasma calcium measurement (mass/volume) 9.4 mg/dL 8.5-10.1 Serum or plasma total bilirubin measurement (mass/volume) 1.5 mg/dL 0.1-1.0 Serum or plasma alkaline phosphatase measurement (enzymatic activity/volume) 62 U/L 40-136 Serum or plasma aspartate aminotransferase measurement (enzymatic activity/volume) 24 U/L 5-34 Serum or plasma alanine aminotransferase measurement (enzymatic activity/volume) 13 U/L 0-55 Serum or plasma protein measurement (mass/volume) 6.0 g/dL 6.4-8.2 Serum or plasma albumin measurement (mass/volume) 4.1 g/dL 3.2-4.5 Magnesium - 11/01/17 14:58 Magnesium 2.1 mg/dL 1.8-2.4 Lipid 1996 panel - 11/01/17 14:58 Serum or plasma triglyceride measurement (mass/volume) 82 mg/dL <150 Serum or plasma cholesterol measurement (mass/volume) 146 mg/dL < 200 Serum or plasma cholesterol in HDL measurement (mass/volume) 56 mg/dL 40-60 Cholesterol in LDL [mass/volume] in serum or plasma by direct assay 71 mg/dL 1-129 Serum or plasma cholesterol in VLDL measurement (mass/volume) 16 mg/dL 5-40 Erythrocyte sedimentation rate by westergren method - 11/01/17 14:58 Erythrocyte sedimentation rate by westergren method 4 mm 0- 30 [id number] - 11/01/17 14:58 Serum or plasma urea nitrogen measurement (mass/volume) 6 mg/dL 7-18 Serum or plasma creatinine measurement (mass/volume) 0.77 mg/dL 0.60-1.30 Serum or plasma urea nitrogen/creatinine mass ratio 8 NRG Serum or plasma creatinine measurement with calculation of estimated glomerular filtration rate > NRG Serum or plasma alanine aminotransferase measurement (enzymatic activity/volume) - 11/01/17 14:58 Serum or plasma alanine aminotransferase measurement (enzymatic activity/volume) 13 U/L 0-55 Serum or plasma C reactive protein measurement (mass/volume) - 11/01/17 14:58 Serum or plasma C reactive protein measurement (mass/volume) 0.11 mg/dL 0.00-0.50 THYROID STIMULATING HORMONE - 11/01/17 14:58 THYROID STIMULATING HORMONE 3.37 u[iU]/mL 0.35-4.94 Complete blood count (CBC) with automated white blood cell (WBC) differential - 02/19/18 13:48 Blood leukocytes automated count (number/volume) 3.8 10*3/uL 4.3-11.0 Blood erythrocytes automated count (number/volume) 3.36 10*6/uL 4.35-5.85 Venous blood hemoglobin measurement (mass/volume) 10.6 g/dL 11.5-16.0 Blood hematocrit (volume fraction) 32 % 35-52 Automated erythrocyte mean corpuscular volume 95 [foz_us] 80-99 Automated erythrocyte mean corpuscular hemoglobin (mass per erythrocyte) 32 pg 25-34 Automated erythrocyte mean corpuscular hemoglobin concentration measurement (mass/volume) 33 g/dL 32-36 Automated erythrocyte distribution width ratio 12.8 % 10.0- 14.5 Automated blood platelet count (count/volume) 240 10*3/uL 130-400 Automated blood platelet mean volume measurement 9.1 [foz_us] 7.4-10.4 Automated blood neutrophils/100 leukocytes 70 % 42-75 Automated blood lymphocytes/100 leukocytes 19 % 12-44 Blood monocytes/100 leukocytes 9 % 0-12 Automated blood eosinophils/100 leukocytes 2 % 0-10 Automated blood basophils/100 leukocytes 0 % 0-10 Blood neutrophils automated count (number/volume) 2.7 10*3 1.8-7.8 Blood lymphocytes automated count (number/volume) 0.7 10*3 1.0-4.0 Blood monocytes automated count (number/volume) 0.3 10*3 0.0- 1.0 Automated eosinophil count 0.1 10*3/uL 0.0-0.3 Automated blood basophil count (count/volume) 0.0 10*3/uL 0.0-0.1 Serum or plasma creatinine measurement with calculation of estimated glomerular filtration rate - 02/19/18 13:48 Serum or plasma creatinine measurement (mass/volume) 0.80 mg/dL 0.60-1.30 Serum or plasma creatinine measurement with calculation of estimated glomerular filtration rate > NRG Serum or plasma alanine aminotransferase measurement (enzymatic activity/volume) - 02/19/18 13:48 Serum or plasma alanine aminotransferase measurement (enzymatic activity/volume) 13 U/L 0-55 Serum or plasma C reactive protein measurement (mass/volume) - 02/19/18 13:48 Serum or plasma C reactive protein measurement (mass/volume) 0.12 mg/dL 0.00-0.50 Complete blood count (CBC) with automated white blood cell (WBC) differential - 05/10/18 10:35 Blood leukocytes automated count (number/volume) 5.9 10*3/uL 4.3-11.0 Blood erythrocytes automated count (number/volume) 3.38 10*6/uL 4.35-5.85 Venous blood hemoglobin measurement (mass/volume) 11.1 g/dL 11.5-16.0 Blood hematocrit (volume fraction) 32 % 35-52 Automated erythrocyte mean corpuscular volume 96 [foz_us] 80-99 Automated erythrocyte mean corpuscular hemoglobin (mass per erythrocyte) 33 pg 25-34 Automated erythrocyte mean corpuscular hemoglobin concentration measurement (mass/volume) 34 g/dL 32-36 Automated erythrocyte distribution width ratio 13.0 % 10.0- 14.5 Automated blood platelet count (count/volume) 292 10*3/uL 130-400 Automated blood platelet mean volume measurement 8.7 [foz_us] 7.4-10.4 Automated blood neutrophils/100 leukocytes 74 % 42-75 Automated blood lymphocytes/100 leukocytes 15 % 12-44 Blood monocytes/100 leukocytes 10 % 0-12 Automated blood eosinophils/100 leukocytes 1 % 0-10 Automated blood basophils/100 leukocytes 1 % 0-10 Blood neutrophils automated count (number/volume) 4.3 10*3 1.8-7.8 Blood lymphocytes automated count (number/volume) 0.9 10*3 1.0-4.0 Blood monocytes automated count (number/volume) 0.6 10*3 0.0- 1.0 Automated eosinophil count 0.1 10*3/uL 0.0-0.3 Automated blood basophil count (count/volume) 0.0 10*3/uL 0.0-0.1 Serum or plasma creatinine measurement with calculation of estimated glomerular filtration rate - 05/10/18 10:35 Serum or plasma creatinine measurement (mass/volume) 0.97 mg/dL 0.60-1.30 Serum or plasma creatinine measurement with calculation of estimated glomerular filtration rate 57 NRG Serum or plasma alanine aminotransferase measurement (enzymatic activity/volume) - 05/10/18 10:35 Serum or plasma alanine aminotransferase measurement (enzymatic activity/volume) 16 U/L 0-55 Complete blood count (CBC) with automated white blood cell (WBC) differential - 10/19/18 20:30 Blood leukocytes automated count (number/volume) 12.0 10*3/uL 4.3-11.0 Blood erythrocytes automated count (number/volume) 2.88 10*6/uL 4.35-5.85 Venous blood hemoglobin measurement (mass/volume) 9.4 g/dL 11.5-16.0 Blood hematocrit (volume fraction) 29 % 35-52 Automated erythrocyte mean corpuscular volume 100 [foz_us] 80-99 Automated erythrocyte mean corpuscular hemoglobin (mass per erythrocyte) 33 pg 25-34 Automated erythrocyte mean corpuscular hemoglobin concentration measurement (mass/volume) 33 g/dL 32-36 Automated erythrocyte distribution width ratio 14.0 % 10.0- 14.5 Automated blood platelet count (count/volume) 211 10*3/uL 130-400 Automated blood platelet mean volume measurement 9.8 [foz_us] 7.4-10.4 Automated blood neutrophils/100 leukocytes 89 % 42-75 Automated blood lymphocytes/100 leukocytes 3 % 12-44 Blood monocytes/100 leukocytes 6 % 0-12 Automated blood eosinophils/100 leukocytes 1 % 0-10 Automated blood basophils/100 leukocytes 0 % 0-10 Blood neutrophils automated count (number/volume) 10.7 10*3 1.8-7.8 Blood lymphocytes automated count (number/volume) 0.4 10*3 1.0-4.0 Blood monocytes automated count (number/volume) 0.7 10*3 0.0- 1.0 Automated eosinophil count 0.1 10*3/uL 0.0-0.3 Automated blood basophil count (count/volume) 0.0 10*3/uL 0.0-0.1 Comprehensive metabolic panel - 10/19/18 20:30 Serum or plasma sodium measurement (moles/volume) 137 mmol/L 135-145 Serum or plasma potassium measurement (moles/volume) 3.3 mmol/L 3.6-5.0 Serum or plasma chloride measurement (moles/volume) 107 mmol/L 98-107 Carbon dioxide 23 mmol/L 21-32 Serum or plasma anion gap determination (moles/volume) 7 mmol/L 5-14 Serum or plasma urea nitrogen measurement (mass/volume) 11 mg/dL 7-18 Serum or plasma creatinine measurement (mass/volume) 0.87 mg/dL 0.60-1.30 Serum or plasma urea nitrogen/creatinine mass ratio 13 NRG Serum or plasma creatinine measurement with calculation of estimated glomerular filtration rate > NRG Serum or plasma glucose measurement (mass/volume) 110 mg/dL 70-105 Serum or plasma calcium measurement (mass/volume) 8.4 mg/dL 8.5-10.1 Serum or plasma total bilirubin measurement (mass/volume) 1.0 mg/dL 0.1-1.0 Serum or plasma alkaline phosphatase measurement (enzymatic activity/volume) 68 U/L 40-136 Serum or plasma aspartate aminotransferase measurement (enzymatic activity/volume) 26 U/L 5-34 Serum or plasma alanine aminotransferase measurement (enzymatic activity/volume) 17 U/L 0-55 Serum or plasma protein measurement (mass/volume) 5.6 g/dL 6.4-8.2 Serum or plasma albumin measurement (mass/volume) 3.8 g/dL 3.2-4.5 CALCIUM CORRECTED 8.6 mg/dL 8.5-10.1 Magnesium - 10/19/18 20:30 Magnesium 1.7 mg/dL 1.8-2.4 Lipase - 10/19/18 20:30 Lipase 16 U/L 8-78 Serum or plasma C reactive protein measurement (mass/volume) - 10/19/18 20:30 Serum or plasma C reactive protein measurement (mass/volume) 2.18 mg/dL 0.00-0.50 Serum or plasma lithium measurement (moles/volume) - 10/19/18 20:30 BNP level 612.9 pg/mL <100.0 Complete urinalysis with reflex to culture - 10/19/18 20:51 Urine color determination YELLOW NRG Urine clarity determination CLEAR NRG Urine pH measurement by test strip 5 5-9 Specific gravity of urine by test strip 1.020 1.016-1.022 Urine protein assay by test strip, semi-quantitative 1+ NEGATIVE Urine glucose detection by automated test strip NEGATIVE NEGATIVE Erythrocytes detection in urine sediment by light microscopy 1+ NEGATIVE Urine ketones detection by automated test strip NEGATIVE NEGATIVE Urine nitrite detection by test strip NEGATIVE NEGATIVE Urine total bilirubin detection by test strip NEGATIVE NEGATIVE Urine urobilinogen measurement by automated test strip (mass/volume) NORMAL NORMAL Urine leukocyte esterase detection by dipstick NEGATIVE NEGATIVE Automated urine sediment erythrocyte count by microscopy (number/high power field) RARE NRG Automated urine sediment leukocyte count by microscopy (number/high power field) RARE NRG Bacteria detection in urine sediment by light microscopy TRACE NRG Squamous epithelial cells detection in urine sediment by light microscopy 0-2 NRG Crystals detection in urine sediment by light microscopy NONE NRG Casts detection in urine sediment by light microscopy NONE NRG Mucus detection in urine sediment by light microscopy NEGATIVE NRG Complete urinalysis with reflex to culture NO NRG Complete blood count (CBC) with automated white blood cell (WBC) differential - 10/20/18 05:12 Blood leukocytes automated count (number/volume) 7.5 10*3/uL 4.3-11.0 Blood erythrocytes automated count (number/volume) 2.55 10*6/uL 4.35-5.85 Venous blood hemoglobin measurement (mass/volume) 8.3 g/dL 11.5-16.0 Blood hematocrit (volume fraction) 26 % 35-52 Automated erythrocyte mean corpuscular volume 101 [foz_us] 80-99 Automated erythrocyte mean corpuscular hemoglobin (mass per erythrocyte) 33 pg 25-34 Automated erythrocyte mean corpuscular hemoglobin concentration measurement (mass/volume) 32 g/dL 32-36 Automated erythrocyte distribution width ratio 14.0 % 10.0- 14.5 Automated blood platelet count (count/volume) 177 10*3/uL 130-400 Automated blood platelet mean volume measurement 9.6 [foz_us] 7.4-10.4 Automated blood neutrophils/100 leukocytes 73 % 42-75 Automated blood lymphocytes/100 leukocytes 13 % 12-44 Blood monocytes/100 leukocytes 11 % 0-12 Automated blood eosinophils/100 leukocytes 4 % 0-10 Automated blood basophils/100 leukocytes 0 % 0-10 Blood neutrophils automated count (number/volume) 5.5 10*3 1.8-7.8 Blood lymphocytes automated count (number/volume) 1.0 10*3 1.0-4.0 Blood monocytes automated count (number/volume) 0.8 10*3 0.0- 1.0 Automated eosinophil count 0.3 10*3/uL 0.0-0.3 Automated blood basophil count (count/volume) 0.0 10*3/uL 0.0-0.1 Comprehensive metabolic panel - 10/20/18 05:12 Serum or plasma sodium measurement (moles/volume) 136 mmol/L 135-145 Serum or plasma potassium measurement (moles/volume) 3.5 mmol/L 3.6-5.0 Serum or plasma chloride measurement (moles/volume) 106 mmol/L 98-107 Carbon dioxide 22 mmol/L 21-32 Serum or plasma anion gap determination (moles/volume) 8 mmol/L 5-14 Serum or plasma urea nitrogen measurement (mass/volume) 11 mg/dL 7-18 Serum or plasma creatinine measurement (mass/volume) 0.82 mg/dL 0.60-1.30 Serum or plasma urea nitrogen/creatinine mass ratio 13 NRG Serum or plasma creatinine measurement with calculation of estimated glomerular filtration rate > NRG Serum or plasma glucose measurement (mass/volume) 94 mg/dL 70-105 Serum or plasma calcium measurement (mass/volume) 8.1 mg/dL 8.5-10.1 Serum or plasma total bilirubin measurement (mass/volume) 0.8 mg/dL 0.1-1.0 Serum or plasma alkaline phosphatase measurement (enzymatic activity/volume) 59 U/L 40-136 Serum or plasma aspartate aminotransferase measurement (enzymatic activity/volume) 26 U/L 5-34 Serum or plasma alanine aminotransferase measurement (enzymatic activity/volume) 16 U/L 0-55 Serum or plasma protein measurement (mass/volume) 5.0 g/dL 6.4-8.2 Serum or plasma albumin measurement (mass/volume) 3.4 g/dL 3.2-4.5 CALCIUM CORRECTED 8.6 mg/dL 8.5-10.1 Serum or plasma folate measurement (mass/volume) - 10/20/18 05:12 Serum or plasma folate measurement (mass/volume) 8.5 % >=4.0 Cyanocobalamin measurement - 10/20/18 05:12 Vitamin B12 295 pg/mL 190-1100 Sputum Gram stain - 10/20/18 19:01 Sputum Gram stain relevant, interpret with caution NRG Bacterial sputum culture - 10/20/18 19:01 QUANTITY OF GROWTH SMALL AMOUNT NRG Bacterial sputum culture USUAL RESP NRG Complete blood count (CBC) with automated white blood cell (WBC) differential - 10/21/18 05:00 Blood leukocytes automated count (number/volume) 6.8 10*3/uL 4.3-11.0 Blood erythrocytes automated count (number/volume) 2.69 10*6/uL 4.35-5.85 Venous blood hemoglobin measurement (mass/volume) 8.8 g/dL 11.5-16.0 Blood hematocrit (volume fraction) 27 % 35-52 Automated erythrocyte mean corpuscular volume 100 [foz_us] 80-99 Automated erythrocyte mean corpuscular hemoglobin (mass per erythrocyte) 33 pg 25-34 Automated erythrocyte mean corpuscular hemoglobin concentration measurement (mass/volume) 33 g/dL 32-36 Automated erythrocyte distribution width ratio 13.4 % 10.0- 14.5 Automated blood platelet count (count/volume) 177 10*3/uL 130-400 Automated blood platelet mean volume measurement 9.5 [foz_us] 7.4-10.4 Automated blood neutrophils/100 leukocytes 75 % 42-75 Automated blood lymphocytes/100 leukocytes 14 % 12-44 Blood monocytes/100 leukocytes 11 % 0-12 Automated blood eosinophils/100 leukocytes 1 % 0-10 Automated blood basophils/100 leukocytes 0 % 0-10 Blood neutrophils automated count (number/volume) 5.0 10*3 1.8-7.8 Blood lymphocytes automated count (number/volume) 0.9 10*3 1.0-4.0 Blood monocytes automated count (number/volume) 0.7 10*3 0.0- 1.0 Automated eosinophil count 0.1 10*3/uL 0.0-0.3 Automated blood basophil count (count/volume) 0.0 10*3/uL 0.0-0.1 Whole blood basic metabolic panel - 10/21/18 05:00 Serum or plasma sodium measurement (moles/volume) 141 mmol/L 135-145 Serum or plasma potassium measurement (moles/volume) 3.6 mmol/L 3.6-5.0 Serum or plasma chloride measurement (moles/volume) 109 mmol/L 98-107 Carbon dioxide 23 mmol/L 21-32 Serum or plasma anion gap determination (moles/volume) 9 mmol/L 5-14 Serum or plasma urea nitrogen measurement (mass/volume) 10 mg/dL 7-18 Serum or plasma creatinine measurement (mass/volume) 0.87 mg/dL 0.60-1.30 Serum or plasma urea nitrogen/creatinine mass ratio 11 NRG Serum or plasma creatinine measurement with calculation of estimated glomerular filtration rate > NRG Serum or plasma glucose measurement (mass/volume) 100 mg/dL 70-105 Serum or plasma calcium measurement (mass/volume) 8.3 mg/dL 8.5-10.1 Complete blood count (CBC) with automated white blood cell (WBC) differential - 10/23/18 05:12 Blood leukocytes automated count (number/volume) 4.6 10*3/uL 4.3-11.0 Blood erythrocytes automated count (number/volume) 2.69 10*6/uL 4.35-5.85 Venous blood hemoglobin measurement (mass/volume) 8.6 g/dL 11.5-16.0 Blood hematocrit (volume fraction) 27 % 35-52 Automated erythrocyte mean corpuscular volume 99 [foz_us] 80-99 Automated erythrocyte mean corpuscular hemoglobin (mass per erythrocyte) 32 pg 25-34 Automated erythrocyte mean corpuscular hemoglobin concentration measurement (mass/volume) 32 g/dL 32-36 Automated erythrocyte distribution width ratio 12.8 % 10.0- 14.5 Automated blood platelet count (count/volume) 181 10*3/uL 130-400 Automated blood platelet mean volume measurement 9.9 [foz_us] 7.4-10.4 Automated blood neutrophils/100 leukocytes 58 % 42-75 Automated blood lymphocytes/100 leukocytes 23 % 12-44 Blood monocytes/100 leukocytes 16 % 0-12 Automated blood eosinophils/100 leukocytes 3 % 0-10 Automated blood basophils/100 leukocytes 0 % 0-10 Blood neutrophils automated count (number/volume) 2.7 10*3 1.8-7.8 Blood lymphocytes automated count (number/volume) 1.0 10*3 1.0-4.0 Blood monocytes automated count (number/volume) 0.7 10*3 0.0- 1.0 Automated eosinophil count 0.2 10*3/uL 0.0-0.3 Automated blood basophil count (count/volume) 0.0 10*3/uL 0.0-0.1 Whole blood basic metabolic panel - 10/23/18 05:12 Serum or plasma sodium measurement (moles/volume) 140 mmol/L 135-145 Serum or plasma potassium measurement (moles/volume) 3.6 mmol/L 3.6-5.0 Serum or plasma chloride measurement (moles/volume) 107 mmol/L 98-107 Carbon dioxide 24 mmol/L 21-32 Serum or plasma anion gap determination (moles/volume) 9 mmol/L 5-14 Serum or plasma urea nitrogen measurement (mass/volume) 7 mg/dL 7-18 Serum or plasma creatinine measurement (mass/volume) 0.78 mg/dL 0.60-1.30 Serum or plasma urea nitrogen/creatinine mass ratio 9 NRG Serum or plasma creatinine measurement with calculation of estimated glomerular filtration rate > NRG Serum or plasma glucose measurement (mass/volume) 96 mg/dL 70-105 Serum or plasma calcium measurement (mass/volume) 8.5 mg/dL 8.5-10.1 ANEMIA ANALYZER - 10/24/18 11:15 Blood leukocytes automated count (number/volume) 12.4 10*3/uL 4.3-11.0 Blood erythrocytes automated count (number/volume) 3.03 10*6/uL 4.35-5.85 Venous blood hemoglobin measurement (mass/volume) 9.5 g/dL 11.5-16.0 Blood hematocrit (volume fraction) 29 % 35-52 Automated erythrocyte mean corpuscular volume 96 [foz_us] 80-99 Automated erythrocyte mean corpuscular hemoglobin (mass per erythrocyte) 31 pg 25-34 Automated erythrocyte mean corpuscular hemoglobin concentration measurement (mass/volume) 33 g/dL 32-36 Automated erythrocyte distribution width ratio 12.9 % 10.0- 14.5 Automated blood platelet count (count/volume) 267 10*3/uL 130-400 Automated blood platelet mean volume measurement 9.8 [foz_us] 7.4-10.4 Automated blood neutrophils/100 leukocytes 91 % 42-75 Automated blood lymphocytes/100 leukocytes 4 % 12-44 Blood monocytes/100 leukocytes 5 % NRG Automated blood eosinophils/100 leukocytes 0 % 0-10 Automated blood basophils/100 leukocytes 0 % 0-10 Blood neutrophils automated count (number/volume) 11.2 10*3 1.8-7.8 Blood lymphocytes automated count (number/volume) 0.5 10*3 1.0-4.0 Blood monocytes automated count (number/volume) 0.7 10*3 0.0- 1.0 Automated eosinophil count 0.0 10*3/uL 0.0-0.3 Automated blood basophil count (count/volume) 0.0 10*3/uL 0.0-0.1 Manual blood segmented neutrophils/100 leukocytes 90 % NRG Manual blood lymphocytes/100 leukocytes 5 % NRG Blood polychromasia detection by light microscopy MODERATE NRG Blood hypochromia detection by light microscopy SLIGHT NRG Blood reticulocytes count (number/volume) 177 10*9/L 24-90 Blood reticulocytes/100 erythrocytes 5.85 % 0.50-2.40 Blood dacrocytes detection by light microscopy SLIGHT NRG Blood hypersegmented neutrophils detection by light microscopy MODERATE NRG Blood basophilic stippling detection by light microscopy SLIGHT NRG Encounters ACCT No. Visit Date/Time Discharge Status Pt. Type Provider Facility Loc./Unit Complaint [id number] 10/20/2018 09:15:00 10/24/2018 15:00:00 DIS Inpatient LINDSAY GRACIA MD [facility] 4TH PNEUMONIA,HYPOXIA [id number] 08/09/2018 00:13:00 08/09/2018 23:59:59 CLS Preadmit JOSEPH GRACIA MD [facility] LAB EROSIVE ARTHRITIS [id number] 05/10/2018 10:16:00 08/08/2018 00:01:00 DIS Outpatient JOSEPH GRACIA MD [facility] LAB EROSIVE ARTHRITIS [id number] 05/21/2018 00:06:00 05/21/2018 23:59:59 CLS Preadmit JOSEPH GRACIA MD [facility] LAB EROSIVE ARTHRITIS,THERAPUTIC DRUG MONITORING [id number] 02/19/2018 13:23:00 05/20/2018 00:01:00 DIS Outpatient JOSEPH GRACIA MD [facility] LAB EROSIVE ARTHRITIS,THERAPUTIC DRUG MONITORING [id number] 05/10/2018 10:07:00 05/10/2018 23:59:59 CLS Outpatient YAO ARREDONDO [facility] CARD LEG SWELLING,HTN,CAD [id number] 04/14/2018 07:10:00 04/14/2018 23:59:59 CLS Outpatient YAO ARREDONDOP [facility] CARD CAD,HTN,LEG SWELLING [id number] 03/31/2018 12:13:00 03/31/2018 23:59:59 CLS Outpatient BE CADET FACFloyd, CHAVEZ TAVERAS CCDS [facility] LAB M79.89,I10 [id number] 11/01/2017 14:38:00 11/01/2017 23:59:59 CLS Outpatient JOSEPH GRACIA MD [facility] LAB RHEUMATOID ARTHITIS [id number] 11/01/2017 14:27:00 11/01/2017 23:59:59 CLS Outpatient YAO ARREDONDOP [facility] LAB CAD [id number] 08/25/2017 12:59:00 08/25/2017 23:59:59 CLS Outpatient RON MENSAH MD [facility] LAB SEE ORDER [id number] 08/25/2017 12:56:00 08/25/2017 23:59:59 CLS Outpatient JAYASHREE 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 [facility] RAD ANOSMIA [id number] 05/22/2017 11:02:00 05/23/2017 15:20:00 DIS Inpatient FELY CADET, WILSON R [facility] 4TH PRESISTENT NAUSEA AND VOMITING [id number] 03/30/2017 14:13:00 03/30/2017 23:59:59 CLS Outpatient RON MENSAH MD [facility] LAB M19.90 [id number] 03/30/2017 13:28:00 03/30/2017 23:59:59 CLS Outpatient BE CADET FACFloyd, CAHVEZ TAVERAS CCDS [facility] LAB I25.10,I65.23,I10,E78.4,R42 [id number] 03/30/2017 11:42:00 03/30/2017 23:59:59 CLS Outpatient YAO ARREDONDO [facility] CARD CAD I25.10 [id number] 03/02/2017 10:00:00 03/02/2017 23:59:59 CLS Preadmit BE CADET FACCCHAVEZ FACSole CCDS [facility] CATH CHEST PAIN, CAD [id number] 01/07/2017 15:14:00 01/07/2017 23:59:59 CLS Outpatient RON MENSAH MD [facility] LAB CRP,CBC [id number] 11/11/2016 00:12:00 11/11/2016 23:59:59 CLS Preadmit FELY CADET WILSON R [facility] LAB ACUTE DIARRHEA [id number] 08/12/2016 16:15:00 11/10/2016 00:01:00 DIS Outpatient FELY CADET WILSON R [facility] LAB ACUTE DIARRHEA [id number] 10/20/2016 00:18:00 10/20/2016 23:59:59 CLS Preadmit FELY CADET WILSON R [facility] [facility] ACUTE DIARRHEA [id number] 07/21/2016 16:07:00 10/19/2016 00:01:00 DIS Outpatient FELY CADET WILSON R [facility] LAB ACUTE DIARRHEA [id number] 09/01/2016 09:39:00 09/01/2016 23:59:59 CLS Outpatient FELY CADET WILSON R [facility] LAB R19.7 [id number] 08/12/2016 16:24:00 08/12/2016 23:59:59 CLS Outpatient FELY CADET WILSON R [facility] RAD FRONTAL SINUS PAIN,PRODUCTIVE COUGH [id number] 08/11/2016 11:53:00 08/11/2016 23:59:59 CLS Outpatient WILSON GEIGER MD R [facility] LAB FRONTAL SINUS PAIN,ACUTE DIARRHEA [id number] 08/04/2016 16:23:00 08/04/2016 23:59:59 CLS Outpatient RON MENSAH MD [facility] LAB 714.9 [id number] 01/15/2016 19:22:00 01/16/2016 09:30:00 DIS Inpatient WILSON GEIGER MD [facility] ICU CHEST PAIN [id number] 08/05/2015 11:20:00 08/05/2015 23:59:59 CLS Outpatient BE CADET FACCCHAVEZ FACP CCDS [facility] CARD CHEST PAIN,CAD [id number] 12/31/2014 16:15:00 01/30/2015 00:01:00 DIS Outpatient RON MENSAH MD [facility] LAB OSTEOARTHRITIS OF MULTIPLE JOINTS,HIGH RISK MED [id number] 10/01/2014 14:04:00 10/01/2014 23:59:59 CLS Outpatient WILSON GEIGER MD [facility] RAD LUMP ON RT BREAST [id number] 09/21/2014 10:30:00 09/21/2014 23:59:59 CLS Preadmit KENZIE CADET, GISELA Ribeiro [facility] CARD DDD [id number] 08/01/2014 12:45:00 08/01/2014 23:59:59 CLS Outpatient ROCHELLE DELEON MD [facility] RAD RECURRING UTI [id number] 08/16/2013 18:06:00 08/16/2013 23:59:59 CLS Outpatient YAO ARREDONDO [facility] RT DIZZINESS,SOB, [id number] 05/17/2013 00:06:00 05/17/2013 02:23:00 DIS Emergency ARIN LOWE MD [facility] ER FELL OFF PORCH,HEAD INJURY [id number] 02/16/2013 06:03:00 02/16/2013 11:40:00 DIS Outpatient BOB MORENO DO [facility] SDC POST MENOPAUSAL BLEEDING;SEVERE ANXIETY [id number] 02/15/2013 14:50:00 02/15/2013 23:59:59 CLS Outpatient BOB MORENO DO [facility] PREOP POST MENOPAUSAL BLEEDING; SEVERE ANXIETY [id number] 01/20/2013 08:30:00 01/21/2013 18:00:00 DIS Outpatient CHAVEZ LR MD, FACC, FACP CCDS [facility] CATH CHEST PAIN [id number] 11/08/2012 20:07:00 11/08/2012 21:01:00 DIS Emergency DAVID BAPTISTE, RICARDO Beard [facility] ER LT HAND/ARM TINGLING [id number] 10/22/2012 17:46:00 10/22/2012 18:58:00 DIS Emergency FRANSICO CADET, LUZ Dickerson [facility] ER LEFT HAND INJ [id number] 10/21/2012 10:58:00 10/21/2012 23:59:59 CLS Outpatient FELY CADET, WILSON Orosco [facility] RAD FALL L HAND [id number] 10/24/2018 16:45:00 ACT Emergency YVONNE CADET, RAFIQ Ribeiro [facility] ER FALL [id number] 08/01/2015 07:40:00 Document Registration [id number] 08/02/2014 14:44:00 Document Registration [id number] 11/10/2011 21:31:00 Document Registration [id number] 09/30/2011 16:59:00 Document Registration [id number] 08/16/2011 02:59:00 Document Registration [id number] 03/23/2011 14:56:00 Document Registration [id number] 02/19/2011 15:28:00 Document Registration [id number] 02/13/2011 12:45:00 Document Registration [id number] 01/28/2011 22:29:00 Document Registration [id number] 12/21/2010 02:59:00 Document Registration [id number] 08/28/2010 14:03:00 Document Registration [id number] 05/27/2016 18:06:00 Document Registration [id number] 06/05/2018 15:30:00 06/05/2018 23:59:59 CLS Outpatient Figueroa Geiger [id number] 01/01/2015 00:00:33 ACT Document Registration
--- NOTE | 2018-10-24 17:07 | ED Fall/Injury ---
General Chief Complaint: Trauma-Non Activation Stated Complaint: FALL Source: patient Exam Limitations: no limitations History of Present Illness Date Seen by Provider: Oct 24, 2018 Time Seen by Provider: 16:49 Initial Comments Patient presents to ER by EMS with chief complaint that she had just been discharged from the hospital for pneumonia today and as she was walking up the stairs to her front door she lost her balance fell backwards striking the back of her head against the concrete sidewalk just prior to arrival. She says she has a large goose egg and feels like she split her skull. She does not want anything for pain right now. She did not take anything for the pain. She denies loss of consciousness, double vision blurry vision. She is having some tenderness in her chest wall but no shortness of breath. She says she still feels pretty weak from the hospital stay. She is up-to-date on her tetanus shot last year. Allergies and Home Medications Allergies Coded Allergies: celecoxib (Verified Allergy, Severe, TAKES ASPIRIN AT HOME, 10/19/18) SOA penicillin G (Verified Allergy, Mild, 10/19/18) HIVES divalproex sodium (Verified Allergy, Unknown, 10/19/18) JOINT PAIN, "GUMS BECOME LOSE AROUND TEETH" meperidine (Verified Allergy, Unknown, 10/19/18) LOSES CONTROL OF HANDS AND ARMS morphine (Verified Allergy, Unknown, 10/19/18) FLU LIKE SYMPTOMS ofloxacin (Verified Allergy, Unknown, 10/19/18) TACHYCARDIA promethazine (Verified Allergy, Unknown, 05/28/08) propoxyphene (Verified Allergy, Unknown, 10/19/18) LOSES CONTROL OF HANDS AND ARMS telavancin (Unverified Adverse Reaction, Severe, 10/19/18) SUICIDAL lamotrigine (Unverified Adverse Reaction, Intermediate, BODY JERKS, 10/19/18) SUICIDAL amitriptyline (Verified Adverse Reaction, Mild, 10/19/18) LOSES CONTROL OF HANDS AND ARMS azithromycin (Verified Adverse Reaction, Mild, 10/19/18) FLU LIKE SYMPTOMS erythromycin base (Verified Adverse Reaction, Mild, 10/19/18) NAUSEA, VOMITING promethazine HCl (Unverified Adverse Reaction, Mild, 10/19/18) HALLUCINATIONS Home Medications Acyclovir 800 Mg Tablet, 800 MG PO BID PRN for FEVER BLISTERS, (Reported) TAKES TWICE DAILY X 5 DAYS NEEDED FOR FEVER BLISTERS Aspirin 81 Mg Tab.chew, 81 MG PO BID, (Reported) Baclofen 10 Mg Tablet, 20 MG PO TID, (Reported) TAKES 2 (10MG) TABLETS Citalopram Hydrobromide 40 Mg Tablet, 40 MG PO DAILY, (Reported) Colestipol HCl 1 Gm Tablet, 1 GM PO BID, (Reported) Dicyclomine HCl 20 Mg Tablet, 40 MG PO BID, (Reported) TAKES 2 (20MG) TABLETS Doxycycline Hyclate 100 Mg Tablet, 100 MG PO BID WITH MEALS Prescribed by: LINDSAY GRACIA on 10/24/18 1347 Furosemide 40 Mg Tablet, 40 MG PO DAILY, (Reported) Gabapentin 600 Mg Tablet, 1,200 MG PO TID, (Reported) TAKES 2 (600MG) TABLETS Hydroxychloroquine Sulfate 200 Mg Tablet, 200 MG PO BID, (Reported) Ibuprofen 800 Mg Tablet, 800 MG PO Q8H PRN for PAIN-MILD, (Reported) Lisinopril 40 Mg Tablet, 40 MG PO HS, (Reported) Metoprolol Succinate 200 Mg Tab.er.24h, 200 MG PO DAILY, (Reported) Mirtazapine 15 Mg Tablet, 15 MG PO HS, (Reported) Potassium Chloride 20 Meq Tablet.er, 20 MEQ PO DAILY, (Reported) LAST FILLED #15 09-25-18 Simvastatin 20 Mg Tablet, 20 MG PO HS, (Reported) Sulfasalazine 500 Mg Tablet, 1,500 MG PO BID, (Reported) TAKES 3 (500MG) TABLETS Trazodone HCl 100 Mg Tablet, 100 MG PO HS PRN for SLEEP, (Reported) Patient Home Medication List Home Medication List Reviewed: Yes Review of Systems Review of Systems Constitutional: No chills, No diaphoresis Eyes: Denies Blindness, Denies Blurred Vision Ears, Nose, Mouth, Throat: denies ear pain, denies ear discharge Respiratory: No cough, No dyspnea on exertion Cardiovascular: chest pain; No palpitations Gastrointestinal: No abdominal pain, No constipation, No diarrhea Past Petgruy-Nztiud-Jrlohu Hx Patient Social History Alcohol Use: Denies Use Recreational Drug Use: No Smoking Status: Never a Smoker Recent Hopitalizations: No Immunizations Up To Date Tetanus Booster (TDap): Less than 5yrs PED Vaccines UTD: No Date of Pneumonia Vaccine: Mar 01, 2018 Date of Influenza Vaccine: Feb 09, 2017 Seasonal Allergies Seasonal Allergies: No Past Medical History Surgeries: Yes (ANGIOPLASTY) Adenoidectomy, Appendectomy, Cardiac, Coronary Stent, Gallbladder, Orthopedic, Tonsillectomy Respiratory: No Cardiac: Yes (CARDIAC STENT X4, ANGIOPLASTY X 2; CAROTID DISEASE) Coronary Artery Disease, High Cholesterol, Hypertension Neurological: No Reproductive Disorders: Yes (unable to have children) 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: Menopausal UTI-Chronic Gastrointestinal: Yes (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) Colitis, Irritable Bowel Musculoskeletal: Yes (CHRONIC GENREALIZED PAIN; MULTIPLE ORTHO PROCEDURES ON HANDS) Arthritis, Fibromyalgia, Fractures Endocrine: No Hearing Impairment: Hard of Hearing Cancer: No Psychosocial: Yes Anxiety, Bipolar, Depression Integumentary: No Blood Disorders: No Adverse Reaction/Blood Tranf: No Family Medical History Arthritis 19 MOTHER G8 SISTER Cardiovascular disease 19 MOTHER G8 BROTHER G8 BROTHER Cirhosis of liver G8 SISTER Kidney disease G8 SISTER Ms No Pertinent Family Hx Physical Exam Vital Signs Vital Signs - First Documented 10/24/18 16:50 Temp 97.9 Pulse 86 Resp 18 B/P (MAP) 182/90 (120) Capillary Refill : Height, Weight, BMI Height: 5'6.00" Weight: 192lbs. 5.0oz. 87.283440mo; 31.2 BMI Method:Stated General Appearance: WD/WN, mild distress HEENT: PERRL/EOMI, normal ENT inspection, TMs normal, pharynx normal, other (large 7 cm diameter by 2 and half centimeter tall hematoma on the right occipi gisel scalp without laceration. 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 Various, old related to blood draws most likely), other (Minor abrasion right elbow) [place] Coma Score Best Eye Response: (4) Open Spontaneously Best Verbal Response: (5) Oriented Best Motor Response: (6) Obeys Commands Sebastián Total: 15 Progress/Results/Core Measures Results/Orders Lab Results Laboratory Tests Test 10/24/18 17:00 10/24/18 17:31 Range/Units White Blood Count 13.8 H 4.3-11.0 10^3/uL Red Blood Count 3.01 L 4.35-5.85 10^6/uL Hemoglobin 9.6 L 11.5-16.0 G/DL Hematocrit 29 L 35-52 % Mean Corpuscular Volume 96 80-99 FL Mean Corpuscular Hemoglobin 32 25-34 PG Mean Corpuscular Hemoglobin Concent 33 32-36 G/DL Red Cell Distribution Width 12.6 10.0-14.5 % Platelet Count 287 130-400 10^3/uL Mean Platelet Volume 9.9 7.4-10.4 FL Neutrophils (%) (Auto) 93 H 42-75 % Lymphocytes (%) (Auto) 4 L 12-44 % Monocytes (%) (Auto) 4 0-12 % Eosinophils (%) (Auto) 0 0-10 % Basophils (%) (Auto) 0 0-10 % Neutrophils # (Auto) 12.8 H 1.8-7.8 X 10^3 Lymphocytes # (Auto) 0.5 L 1.0-4.0 X 10^3 Monocytes # (Auto) 0.5 0.0-1.0 X 10^3 Eosinophils # (Auto) 0.0 0.0-0.3 10^3/uL Basophils # (Auto) 0.0 0.0-0.1 10^3/uL Neutrophils % (Manual) 93 % Lymphocytes % (Manual) 7 % Blood Morphology Comment NORMAL Sodium Level 134 L 135-145 MMOL/L Potassium Level 3.9 3.6-5.0 MMOL/L Chloride Level 101 98-107 MMOL/L Carbon Dioxide Level 23 21-32 MMOL/L Anion Gap 10 5-14 MMOL/L Blood Urea Nitrogen 11 7-18 MG/DL Creatinine 0.77 0.60-1.30 MG/DL Estimat Glomerular Filtration Rate > 60 BUN/Creatinine Ratio 14 Glucose Level 125 H 70-105 MG/DL Calcium Level 8.7 8.5-10.1 MG/DL Corrected Calcium 9.0 8.5-10.1 MG/DL Total Bilirubin 0.5 0.1-1.0 MG/DL Aspartate Amino Transf (AST/SGOT) 39 H 5-34 U/L Alanine Aminotransferase (ALT/SGPT) 27 0-55 U/L Alkaline Phosphatase 52 40-136 U/L C-Reactive Protein High Sensitivity 4.15 H 0.00-0.50 MG/DL Total Protein 5.4 L 6.4-8.2 GM/DL Albumin 3.6 3.2-4.5 GM/DL Urine Color YELLOW Urine Clarity CLEAR Urine pH 6 5-9 Urine Specific [place] 1.015 L 1.016-1.022 Urine Protein NEGATIVE NEGATIVE Urine Glucose (UA) NEGATIVE NEGATIVE Urine Ketones NEGATIVE NEGATIVE Urine Nitrite NEGATIVE NEGATIVE Urine Bilirubin NEGATIVE NEGATIVE Urine Urobilinogen NORMAL NORMAL MG/DL Urine Leukocyte Esterase NEGATIVE NEGATIVE Urine RBC (Auto) NEGATIVE NEGATIVE Urine RBC NONE /HPF Urine WBC NONE /HPF Urine Squamous Epithelial Cells 0-2 /HPF Urine Crystals NONE /LPF Urine Bacteria NEGATIVE /HPF Urine Casts PRESENT /LPF Urine Hyaline Casts 10-25 H /LPF Urine Mucus NEGATIVE /LPF Urine Culture Indicated NO My Orders Orders - RAFIQ RUSSELL Cbc With Automated Diff (10/24/18 17:00) Comprehensive Metabolic Panel (10/24/18 17:00) Hs C Reactive Protein (10/24/18 17:00) Orthostatic Vital Signs (Adult (10/24/18 17:00) Ekg Tracing (10/24/18 17:00) Continuous Ekg Monitoring (10/24/18 17:00) Chest Pa/Lat (2 View) (10/24/18 17:00) Ct Head/Cervical Spine Wo (10/24/18 17:00) Ed Iv/Invasive Line Start (10/24/18 17:00) Ua Culture If Indicated (10/24/18 17:08) Manual Differential (10/24/18 17:00) Vital Signs/I&O 10/24/18 10/24/18 16:50 17:47 Temp 97.9 Pulse 86 84 88 82 Resp 18 B/P (MAP) 182/90 (120) 168/68 (101) 173/79 (110) 190/85 (120) Progress Progress Note #1: Time: 17:05 Progress Note Most likely the patient is weak from her recent hospitalization for pneumonia. Vitals are okay but blood pressure is significantly elevated at 182/90. Plan to get orthostatic vital signs, EKG, chest x-ray to evaluate her ribs, labs and urine. If all else is okay then we have interested her in a short-term stay on inpatient physical therapy/rehabilitation unit. Progress Note #2: Time: 18:38 Progress Note The patient is feeling better we offered her some Toradol for her headache and she accepted. We offered an observation stay to look at doing inpatient acute rehabilitation unit versus outpatient follow-up with Dr. Frye and outpatient physical therapy and she elected to go home. Her and son are here and they will help her at home. We offered her a walker to help her for the next few days with her stability and she declined. She says she has a cane at home. Initial ECG Impression Date: Oct 24, 2018 Initial ECG Impression Time: 17:35 Initial ECG Rate: 83 Initial ECG Rhythm: Normal Sinus Initial ECG Intervals: Normal Initial ECG Impression: Normal Comment Sinus rhythm without ST elevation or depression. Diagnostic Imaging Diagonstic Imaging: Xray Plain Films/CT/US/NM/MRI: chest (2 view) Comments NAME: LILI BE [facility] REC#: [id number] PHYSICIAN: RAFIQ RUSSELL MD CC: TAYLER SALAZAR MD; RAFIQ RUSSELL Page 1 of 1 RADIOLOGY REPORT [facility] [place] [place] CC: TAYLER SALAZAR MD; RAFIQ RUSSELL Page 1 of 1 RADIOLOGY REPORT NAME: LILI BE [facility] REC#: [id number] PT STATUS: REG ER : 1950 PHYSICIAN: RAFIQ RUSSELL MD ADMIT DATE: 10/24/18/ER Signed Date of Exam: 10/24/18 CHEST PA/LAT (2 VIEW) PATIENT HISTORY: Fall, injury. TECHNIQUE: Two views of the chest. COMPARISON: 10/22/2018. FINDINGS: The lung volumes are normal. No focal consolidation is seen. Interstitial opacities appear to be improved compared to the prior exam. No large pleural effusion or pneumothorax is seen. The cardiomediastinal silhouette is normal in size and contour. No acute osseous abnormality is seen. There are degenerative changes and right convex curvature of the thoracic spine. IMPRESSION: No acute pulmonary abnormality seen. Dictated by: Dictated on workstation # [id number] Dict: 10/24/181805 Trans: 10/24/181810 Interpreted by: TAYLER SALAZAR MD Electronically signed by: TAYLER SALAZAR MD 10/24/181810 Reviewed: Reviewed by Dc Diagonstic Imaging: CT (noncontrast) Plain Films/CT/US/NM/MRI: c-spine, head Comments NAME: LILI BE [facility] REC#: [id number] PHYSICIAN: RAFIQ RUSSELL MD CC: TAYLER SALAZAR MD; RAFIQ RUSSELL Page 2 of 2 RADIOLOGY REPORT [facility] [place] [place] CC: TAYLER SALAZAR MD; RAFIQ RUSSELL Page 1 of 2 RADIOLOGY REPORT NAME: LILI BE [facility] REC#: [id number] PT STATUS: REG ER : 1950 PHYSICIAN: RAFIQ RUSSELL MD ADMIT DATE: 10/24/18/ER Signed Date of Exam: 10/24/18 CT HEAD/CERVICAL SPINE WO PROCEDURE: CT head and CT cervical spine without contrast. TECHNIQUE: Multiple contiguous axial images were obtained through the brain and cervical spine without the use of intravenous contrast. Sagittal and coronal reformations through the cervical spine were then performed. Auto Exposure Controls were utilized during the CT exam to meet ALARA standards for radiation dose reduction. INDICATION: Fall with head and neck injury. Pain and swelling to the right occipital area. COMPARISON: CT head from 08/16/2011. FINDINGS: CT HEAD: The ventricles and cortical sulci are age appropriate. There is no midline shift or mass effect. No acute intracranial hemorrhage is seen. There is no CT evidence of acute territorial ischemia. No calvarium fracture is seen. There is a large right parietal scalp hematoma measuring approximately 8 cm long and 1.5 cm thick. Visualized paranasal sinuses appear clear. CT CERVICAL SPINE: Mild degenerative changes are seen in the cervical spine, notably at C4-5. No spondylolisthesis is seen. Vertebral body heights and disc heights are preserved. No acute fracture is seen. There are degenerative changes at C1-2. There is rightward deviation of the nasal septum. IMPRESSION: 1. Large right parietal scalp hematoma. No intracranial hemorrhage or calvarium fracture seen. 2. Mild degenerative changes in the cervical spine with no acute fracture seen. Dictated by: Dictated on workstation # [id number] Dict: 10/24/18 1758 Trans: 10/24/181810 Interpreted by: TAYLER SALAZAR MD Electronically signed by: TAYLER SALAZAR MD 10/24/181810 Reviewed: Reviewed by Me Departure Impression Primary Impression: Fall Qualified Codes: W19.XXXA - Unspecified fall, initial encounter Additional Impressions: Traumatic hematoma of scalp Qualified Codes: S00.03XA - Contusion of scalp, initial encounter Abrasion, elbow w/o infection Disposition: 01 HOME, SELF-CARE Condition: Stable Departure-Patient Inst. Decision time for Depature: 18:39 Referrals: WILSON FRYE MD (PCP/Family) Primary Care Physician Patient Instructions: Concussion, Adult (DC), How to Use a Cane, LOCAL PHYSICIAN LIST, Preventing Falls Add. Discharge Instructions: Ice pack to the head every 2 hours as needed for pain and swelling. Tylenol 1000 mg every 8 hours as needed. Aleve one to 2 capsules every 12 hours as needed for pain. Call your primary care provider tomorrow and request outpatient physical therapy. All discharge instructions reviewed with patient and/or family. Voiced understanding. Copy Copies To 1: WILSON FRYE MD, TITUS J Oct 24, 2018 17:07
[2018-10-24 17:21] LABS: BASOPHILS % (AUTO) 0 % (0-10); EOSINOPHILS % (AUTO) 0 % (0-10); HEMATOCRIT 29 % (35-52); HEMOGLOBIN 9.6 G/DL (11.5-16.0); LYMPHOCYTES # (AUTO) 0.5 X 10^3 (1.0-4.0); LYMPHOCYTES % (AUTO) 4 % (12-44); MEAN CORPUSCULAR HEMOGLOBIN 32 PG (25-34); MEAN CORPUSCULAR HGB CONC 33 G/DL (32-36); MEAN CORPUSCULAR VOLUME 96 FL (80-99); MEAN PLATELET VOLUME 9.9 FL (7.4-10.4); MONOCYTES # (AUTO) 0.5 X 10^3 (0.0-1.0); MONOCYTES % (AUTO) 4 % (0-12); NEUTROPHILS # (AUTO) 12.8 X 10^3 (1.8-7.8); NEUTROPHILS % (AUTO) 93 % (42-75); PLATELET COUNT 287 10^3/uL (130-400); RED CELL DISTRIBUTION WIDTH 12.6 % (10.0-14.5); WHITE BLOOD COUNT 13.8 10^3/uL (4.3-11.0)
[2018-10-24 17:42] LABS: ALANINE AMINOTRANSFERASE 27 U/L (0-55); ALBUMIN 3.6 GM/DL (3.2-4.5); ALKALINE PHOSPHATASE 52 U/L (40-136); BILIRUBIN,TOTAL 0.5 MG/DL (0.1-1.0); BUN/CREATININE RATIO 14; CALCIUM 8.7 MG/DL (8.5-10.1); CARBON DIOXIDE 23 MMOL/L (21-32); CHLORIDE 101 MMOL/L (98-107); CREATININE SERUM 0.77 MG/DL (0.60-1.30); GFR ESTIMATED > 60; GLUCOSE 125 MG/DL (70-105); LYMPHOCYTES % (MANUAL) 7 %; NEUTROPHILS % (MANUAL) 93 %; POTASSIUM 3.9 MMOL/L (3.6-5.0); RBC MORPH NORMAL; SODIUM 134 MMOL/L (135-145); TOTAL PROTEIN 5.4 GM/DL (6.4-8.2)
[2018-10-24 17:44] LABS: BILIRUBIN,URINE NEGATIVE (NEGATIVE); CLARITY,URINE CLEAR; COLOR,URINE YELLOW; GLUCOSE, URINE (UA) NEGATIVE (NEGATIVE); KETONES,URINE NEGATIVE (NEGATIVE); LEUKOCYTE ESTERASE ,URINE NEGATIVE (NEGATIVE); NITRITE,URINE NEGATIVE (NEGATIVE); PH,URINE 6 (5-9); PROTEIN,URINE NEGATIVE (NEGATIVE); UROBILINOGEN,URINE NORMAL (NORMAL)
[2018-10-24 17:47] VITALS: BP_SYST 168; BP_SYST 173; BP_SYST 190; BP_DIAS 68; BP_DIAS 79; BP_DIAS 85
[2018-10-24 17:53] LABS: BACTERIA,URINE NEGATIVE /HPF; SQUAMOUS EPITHELIAL CELL,UR 0-2 /HPF
--- NOTE | 2018-10-24 18:07 | Diagnostic Imaging Report ---
PROCEDURE: CT head and CT cervical spine without contrast. TECHNIQUE: Multiple contiguous axial images were obtained through the brain and cervical spine without the use of intravenous contrast. Sagittal and coronal reformations through the cervical spine were then performed. Auto Exposure Controls were utilized during the CT exam to meet ALARA standards for radiation dose reduction. INDICATION: Fall with head and neck injury. Pain and swelling to the right occipital area. COMPARISON: CT head from 08/16/2011. FINDINGS: CT HEAD: The ventricles and cortical sulci are age appropriate. There is no midline shift or mass effect. No acute intracranial hemorrhage is seen. There is no CT evidence of acute territorial ischemia. No calvarium fracture is seen. There is a large right parietal scalp hematoma measuring approximately 8 cm long and 1.5 cm thick. Visualized paranasal sinuses appear clear. CT CERVICAL SPINE: Mild degenerative changes are seen in the cervical spine, notably at C4-5. No spondylolisthesis is seen. Vertebral body heights and disc heights are preserved. No acute fracture is seen. There are degenerative changes at C1-2. There is rightward deviation of the nasal septum. IMPRESSION: 1. Large right parietal scalp hematoma. No intracranial hemorrhage or calvarium fracture seen. 2. Mild degenerative changes in the cervical spine with no acute fracture seen. Dictated by: Dictated on workstation # [id number]
--- NOTE | 2018-10-24 18:09 | Diagnostic Imaging Report ---
PATIENT HISTORY: Fall, injury. TECHNIQUE: Two views of the chest. COMPARISON: 10/22/2018. FINDINGS: The lung volumes are normal. No focal consolidation is seen. Interstitial opacities appear to be improved compared to the prior exam. No large pleural effusion or pneumothorax is seen. The cardiomediastinal silhouette is normal in size and contour. No acute osseous abnormality is seen. There are degenerative changes and right convex curvature of the thoracic spine. IMPRESSION: No acute pulmonary abnormality seen. Dictated by: Dictated on workstation # [id number]
[2018-10-24] MEDS ORDERED: KETOROLAC 30 MG/ML VIAL IVP ONE (18:45)
[2018-10-24 18:53] VITALS: BP 165/71
== END 2018-10-24 19:06 | disposition home or self-care (01) ==
LOC: EDUNIT# 16:44 → ER 16:45
DX: S00.03XA Contusion of scalp, initial encounter (principal); S50.311A Abrasion of right elbow, initial encounter; I10 Essential (primary) hypertension; E78.00 Pure hypercholesterolemia, unspecified; I25.10 Atherosclerotic heart disease of native coronary artery without angina pectoris; K58.9 Irritable bowel syndrome, unspecified; M79.7 Fibromyalgia; F31.9 Bipolar disorder, unspecified; F41.9 Anxiety disorder, unspecified; R40.2142 Coma scale, eyes open, spontaneous, at arrival to emergency department; R40.2252 Coma scale, best verbal response, oriented, at arrival to emergency department; R40.2362 Coma scale, best motor response, obeys commands, at arrival to emergency department; Z82.49 Family history of ischemic heart disease and other diseases of the circulatory system; Z87.440 Personal history of urinary (tract) infections; Z79.82 Long term (current) use of aspirin; Z88.1 Allergy status to other antibiotic agents; Z88.0 Allergy status to penicillin; Z88.5 Allergy status to narcotic agent; Z88.8 Allergy status to other drugs, medicaments and biological substances; Z95.5 Presence of coronary angioplasty implant and graft; Z90.49 Acquired absence of other specified parts of digestive tract; Z90.89 Acquired absence of other organs; W10.8XXA Fall (on) (from) other stairs and steps, initial encounter; W22.8XXA Striking against or struck by other objects, initial encounter
CPT/HCPCS: 36415; 70450; 71046; 72125; 80053; 81000; 85007; 85027; 86141; 93005

== ENCOUNTER → 2018-11-03 | Outpatient (CLI) | payer MEDICARE, OTHER ==
[2018-11-03 17:26] LABS: BASOPHILS % (AUTO) 0 % (0-10); EOSINOPHILS # (AUTO) 0.1 10^3/uL (0.0-0.3); EOSINOPHILS % (AUTO) 1 % (0-10); HEMATOCRIT 35 % (35-52); HEMOGLOBIN 11.2 G/DL (11.5-16.0); LYMPHOCYTES # (AUTO) 1.3 X 10^3 (1.0-4.0); LYMPHOCYTES % (AUTO) 19 % (12-44); MEAN CORPUSCULAR HEMOGLOBIN 32 PG (25-34); MEAN CORPUSCULAR HGB CONC 32 G/DL (32-36); MEAN CORPUSCULAR VOLUME 99 FL (80-99); MEAN PLATELET VOLUME 9.1 FL (7.4-10.4); MONOCYTES # (AUTO) 0.7 X 10^3 (0.0-1.0); MONOCYTES % (AUTO) 9 % (0-12); NEUTROPHILS % (AUTO) 71 % (42-75); PLATELET COUNT 357 10^3/uL (130-400); RED CELL DISTRIBUTION WIDTH 13.9 % (10.0-14.5); WHITE BLOOD COUNT 7.1 10^3/uL (4.3-11.0)
[2018-11-03 17:31] LABS: CALCIUM 9.1 MG/DL (8.5-10.1); CREATININE SERUM 1.06 MG/DL (0.60-1.30); MAGNESIUM 2.2 MG/DL (1.8-2.4); POTASSIUM 4.2 MMOL/L (3.6-5.0)
== END ==
LOC: LAB 16:45
PROVIDERS: ATTEND Internal Medicine Cardiovascular Disease
DX: I25.10 Atherosclerotic heart disease of native coronary artery without angina pectoris (principal); I77.9 Disorder of arteries and arterioles, unspecified; I10 Essential (primary) hypertension; E78.5 Hyperlipidemia, unspecified; Z86.79 Personal history of other diseases of the circulatory system
CPT/HCPCS: 36415; 80048; 83735; 85025

== ENCOUNTER 2018-12-20 14:08 | Emergency (ER) | payer MEDICARE, OTHER ==
[~2018-12-20] VITALS: Ht 167.6 cm; Wt 79.4 kg
[2018-12-20] MEDS ORDERED: ALPRAZolam 0.5 MG (XANAX) TAB PO SCH (14:30)
--- NOTE | 2018-12-20 14:36 | ED Cardiac General ---
History of Present Illness General Chief Complaint: Cardiac/General Problems Stated Complaint: BP ISSUES Nursing Triage Note: TO TRIAGE WITH COMPLAINTS OF HYPERTENSION FOR LAST MONTH. COMPLAINS OF A HEADACHE TODAY. SHE CALLED DR CURRAN OFFICE WHO SAID THEY COULD GET HER IN TOMORROW BUT IF SHE WAS WORRIED ABOUT IT TO GO TO THE ER. Source: patient Exam Limitations: no limitations History of Present Illness Date Seen by Provider: Dec 20, 2018 Time Seen by Provider: 14:33 Initial Comments To ER by private vehicle with reports of hypertension worse than usual for the past month. She complains of an occipital headache today. She called Dr. Stratton's office he said they couldn't get her in tomorrow but if she was worried she should come to the emergency room. She has worried so she presents here. She has no chest pain. She states that she did have some shortness of breath when working out in the yard yesterday but that is not unusual for her. Blood pressure has been in the 200/100 range. Timing/Duration: changing over time Severity: moderate Activities at Onset: none NTG SL REGIONAL REHABILITATION DIRECTOR: No ASA po REGIONAL REHABILITATION DIRECTOR: No Allergies and Home Medications Allergies Coded Allergies: celecoxib (Verified Allergy, Severe, TAKES ASPIRIN AT HOME, 10/19/18) SOA penicillin G (Verified Allergy, Mild, 10/19/18) HIVES divalproex sodium (Verified Allergy, Unknown, 10/19/18) JOINT PAIN, "GUMS BECOME LOSE AROUND TEETH" meperidine (Verified Allergy, Unknown, 10/19/18) LOSES CONTROL OF HANDS AND ARMS morphine (Verified Allergy, Unknown, 10/19/18) FLU LIKE SYMPTOMS ofloxacin (Verified Allergy, Unknown, 10/19/18) TACHYCARDIA promethazine (Verified Allergy, Unknown, 05/28/08) propoxyphene (Verified Allergy, Unknown, 10/19/18) LOSES CONTROL OF HANDS AND ARMS telavancin (Unverified Adverse Reaction, Severe, 10/19/18) SUICIDAL lamotrigine (Unverified Adverse Reaction, Intermediate, BODY JERKS, 10/19/18) SUICIDAL amitriptyline (Verified Adverse Reaction, Mild, 10/19/18) LOSES CONTROL OF HANDS AND ARMS azithromycin (Verified Adverse Reaction, Mild, 10/19/18) FLU LIKE SYMPTOMS erythromycin base (Verified Adverse Reaction, Mild, 10/19/18) NAUSEA, VOMITING promethazine HCl (Unverified Adverse Reaction, Mild, 10/19/18) HALLUCINATIONS Home Medications Acyclovir 800 Mg Tablet, 800 MG PO BID PRN for FEVER BLISTERS, (Reported) TAKES TWICE DAILY X 5 DAYS NEEDED FOR FEVER BLISTERS Aspirin 81 Mg Tab.chew, 81 MG PO BID, (Reported) Baclofen 10 Mg Tablet, 20 MG PO TID, (Reported) TAKES 2 (10MG) TABLETS Citalopram Hydrobromide 40 Mg Tablet, 40 MG PO DAILY, (Reported) Colestipol HCl 1 Gm Tablet, 1 GM PO BID, (Reported) Dicyclomine HCl 20 Mg Tablet, 40 MG PO BID, (Reported) TAKES 2 (20MG) TABLETS Doxycycline Hyclate 100 Mg Tablet, 100 MG PO BID WITH MEALS Prescribed by: LINDSAY GRACIA on 10/24/18 1347 Furosemide 40 Mg Tablet, 40 MG PO DAILY, (Reported) Gabapentin 600 Mg Tablet, 1,200 MG PO TID, (Reported) TAKES 2 (600MG) TABLETS Hydroxychloroquine Sulfate 200 Mg Tablet, 200 MG PO BID, (Reported) Ibuprofen 800 Mg Tablet, 800 MG PO Q8H PRN for PAIN-MILD, (Reported) Lisinopril 40 Mg Tablet, 40 MG PO HS, (Reported) Metoprolol Succinate 200 Mg Tab.er.24h, 200 MG PO DAILY, (Reported) Mirtazapine 15 Mg Tablet, 15 MG PO HS, (Reported) Potassium Chloride 20 Meq Tablet.er, 20 MEQ PO DAILY, (Reported) LAST FILLED #15 09-25-18 Simvastatin 20 Mg Tablet, 20 MG PO HS, (Reported) Sulfasalazine 500 Mg Tablet, 1,500 MG PO BID, (Reported) TAKES 3 (500MG) TABLETS Trazodone HCl 100 Mg Tablet, 100 MG PO HS PRN for SLEEP, (Reported) Patient Home Medication List Home Medication List Reviewed: Yes Review of Systems Review of Systems Constitutional: see HPI EENTM: No Symptoms Reported Respiratory: No Symptoms Reported Cardiovascular: No Symptoms Reported Gastrointestinal: See HPI Genitourinary: No Symptoms Reported Musculoskeletal: no symptoms reported Skin: no symptoms reported Psychiatric/Neurological: See HPI, Anxiety (she does report anxiety) Endocrine: No Symptoms Reported Past Oitvwxp-Rcrgbc-Kryqpa Hx Patient Social History Alcohol Use: Denies Use Recreational Drug Use: No Smoking Status: Never a Smoker 2nd Hand Smoke Exposure: No Recent Foreign Travel: No Contact w/Someone Who Travel: No Recent Infectious Disease Expo: No Recent Hopitalizations: No Immunizations Up To Date Tetanus Booster (TDap): Less than 5yrs PED Vaccines UTD: No Date of Pneumonia Vaccine: Mar 01, 2018 Date of Influenza Vaccine: Feb 09, 2017 Seasonal Allergies Seasonal Allergies: No Past Medical History Surgeries: Yes (ANGIOPLASTY) Adenoidectomy, Appendectomy, Cardiac, Coronary Stent, Gallbladder, Orthopedic, Tonsillectomy Respiratory: No Cardiac: Yes (CARDIAC STENT X4, ANGIOPLASTY X 2; CAROTID DISEASE) Coronary Artery Disease, High Cholesterol, Hypertension Neurological: No Reproductive Disorders: Yes (unable to have children) 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: Menopausal 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-Chronic Gastrointestinal: Yes (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) Colitis, Irritable Bowel Musculoskeletal: Yes (CHRONIC GENREALIZED PAIN; MULTIPLE ORTHO PROCEDURES ON HANDS) Arthritis, Fibromyalgia, Fractures Endocrine: No Hearing Impairment: Hard of Hearing Cancer: No Psychosocial: Yes Anxiety, Bipolar, Depression Integumentary: No Blood Disorders: No Adverse Reaction/Blood Tranf: No Family Medical History Arthritis 19 MOTHER G8 SISTER Cardiovascular disease 19 MOTHER G8 BROTHER G8 BROTHER Cirhosis of liver G8 SISTER Kidney disease G8 SISTER Ms No Pertinent Family Hx Physical Exam Vital Signs Vital Signs - First Documented 12/20/18 14:14 Temp 99.2 Pulse 69 Resp 16 B/P (MAP) 190/68 (108) Pulse Ox 97 O2 Delivery Room Air Capillary Refill : Less Than 3 Seconds Height, Weight, BMI Height: 5'6.00" Weight: 175lbs. 0oz. 79.360013zp; 31.2 BMI Method:Stated General Appearance: No Apparent Distress, WD/WN HEENT: PERRL/EOMI, TMs Normal Respiratory: No Accessory Muscle Use, No Respiratory Distress Cardiovascular: Regular Rate, Rhythm, No Murmur, Normal Peripheral Pulses Gastrointestinal: Non Tender, Soft Extremity: Normal Capillary Refill, Normal Inspection Neurologic/Psychiatric: Alert, Oriented x3 Skin: Normal Color, Warm/Dry Other comments She is very anxious appearing, offered her Xanax while awaiting lab work is a think this would also help to reduce her blood pressure but she declines it. Progress/Results/Core Measures Results/Orders Lab Results Laboratory Tests Test 12/20/18 14:39 Range/Units White Blood Count 6.0 4.3-11.0 10^3/uL Red Blood Count 3.50 L 4.35-5.85 10^6/uL Hemoglobin 10.7 L 11.5-16.0 G/DL Hematocrit 32 L 35-52 % Mean Corpuscular Volume 92 80-99 FL Mean Corpuscular Hemoglobin 31 25-34 PG Mean Corpuscular Hemoglobin Concent 33 32-36 G/DL Red Cell Distribution Width 14.2 10.0-14.5 % Platelet Count 283 130-400 10^3/uL Mean Platelet Volume 9.4 7.4-10.4 FL Neutrophils (%) (Auto) 73 42-75 % Lymphocytes (%) (Auto) 14 12-44 % Monocytes (%) (Auto) 11 0-12 % Eosinophils (%) (Auto) 2 0-10 % Basophils (%) (Auto) 1 0-10 % Neutrophils # (Auto) 4.3 1.8-7.8 X 10^3 Lymphocytes # (Auto) 0.8 L 1.0-4.0 X 10^3 Monocytes # (Auto) 0.7 0.0-1.0 X 10^3 Eosinophils # (Auto) 0.1 0.0-0.3 10^3/uL Basophils # (Auto) 0.0 0.0-0.1 10^3/uL Sodium Level 134 L 135-145 MMOL/L Potassium Level 4.2 3.6-5.0 MMOL/L Chloride Level 101 98-107 MMOL/L Carbon Dioxide Level 25 21-32 MMOL/L Anion Gap 8 5-14 MMOL/L Blood Urea Nitrogen 8 7-18 MG/DL Creatinine 0.92 0.60-1.30 MG/DL Estimat Glomerular Filtration Rate > 60 BUN/Creatinine Ratio 9 Glucose Level 101 70-105 MG/DL Calcium Level 8.7 8.5-10.1 MG/DL Corrected Calcium 8.7 8.5-10.1 MG/DL Total Bilirubin 1.1 H 0.1-1.0 MG/DL Aspartate Amino Transf (AST/SGOT) 21 5-34 U/L Alanine Aminotransferase (ALT/SGPT) 12 0-55 U/L Alkaline Phosphatase 70 40-136 U/L Troponin I < 0.028 <0.028 NG/ML B-Type Natriuretic Peptide 406.3 H <100.0 PG/ML Total Protein 6.2 L 6.4-8.2 GM/DL Albumin 4.0 3.2-4.5 GM/DL My Orders Orders - LAURITA BNEJAMIN APRN Cbc With Automated Diff (12/20/18 14:17) Comprehensive Metabolic Panel (12/20/18 14:17) Ekg Tracing (12/20/18 14:17) Troponin I (12/20/18 14:17) Alprazolam Tablet (Xanax Tablet) (12/20/18 14:30) BNP (12/20/18 14:36) Vital Signs/I&O 12/20/18 14:14 Temp 99.2 Pulse 69 Resp 16 B/P (MAP) 190/68 (108) Pulse Ox 97 O2 Delivery Room Air Blood Pressure Mean: 108 Departure Communication (Admissions) Patient told the RN she would take the Xanax, she then took the pill bit off about an eighth of the pill and said "thats all I want" and handed it back to R N. Impression Primary Impression: HTN (hypertension) Qualified Codes: I10 - Essential (primary) hypertension Disposition: HOME, SELF-CARE Condition: Stable Departure-Patient Inst. Decision time for Depature: 15:15 Referrals: SUZE COOPER DO (PCP) Primary Care Physician Patient Instructions: High Blood Pressure (DC) Add. Discharge Instructions: 1. Return to ER for any concerns All discharge instructions reviewed with patient and/or family. Voiced understanding. Scripts Hydrochlorothiazide (Hydrochlorothiazide) 12.5 Mg Tablet 12.5 MG PO DAILY, #14 TAB Prov: LAURITA BENJAMIN APRN 12/20/18 Copy Copies To 1: SUZE COOPER PETER J APRN Dec 20, 2018 14:36
[2018-12-20 14:49] LABS: BASOPHILS % (AUTO) 1 % (0-10); EOSINOPHILS # (AUTO) 0.1 10^3/uL (0.0-0.3); EOSINOPHILS % (AUTO) 2 % (0-10); HEMATOCRIT 32 % (35-52); HEMOGLOBIN 10.7 G/DL (11.5-16.0); LYMPHOCYTES # (AUTO) 0.8 X 10^3 (1.0-4.0); LYMPHOCYTES % (AUTO) 14 % (12-44); MEAN CORPUSCULAR HEMOGLOBIN 31 PG (25-34); MEAN CORPUSCULAR HGB CONC 33 G/DL (32-36); MEAN CORPUSCULAR VOLUME 92 FL (80-99); MEAN PLATELET VOLUME 9.4 FL (7.4-10.4); MONOCYTES # (AUTO) 0.7 X 10^3 (0.0-1.0); MONOCYTES % (AUTO) 11 % (0-12); NEUTROPHILS # (AUTO) 4.3 X 10^3 (1.8-7.8); NEUTROPHILS % (AUTO) 73 % (42-75); PLATELET COUNT 283 10^3/uL (130-400); RED CELL DISTRIBUTION WIDTH 14.2 % (10.0-14.5)
[2018-12-20 15:05] LABS: ALANINE AMINOTRANSFERASE 12 U/L (0-55); ALKALINE PHOSPHATASE 70 U/L (40-136); BILIRUBIN,TOTAL 1.1 MG/DL (0.1-1.0); BUN/CREATININE RATIO 9; CALCIUM 8.7 MG/DL (8.5-10.1); CARBON DIOXIDE 25 MMOL/L (21-32); CHLORIDE 101 MMOL/L (98-107); CREATININE SERUM 0.92 MG/DL (0.60-1.30); GFR ESTIMATED > 60; GLUCOSE 101 MG/DL (70-105); POTASSIUM 4.2 MMOL/L (3.6-5.0); SODIUM 134 MMOL/L (135-145); TOTAL PROTEIN 6.2 GM/DL (6.4-8.2)
--- NOTE | 2018-12-20 15:16 | NUR ---
vs- 159/69 R 16 SPO2 96 % HR 65
[2018-12-20] MEDS ORDERED: HYDR12.56 PO (15:26)
[2018-12-20 15:29] VITALS: BP 159/76
== END 2018-12-20 15:29 | disposition home or self-care (01) ==
LOC: EDUNIT# 14:08 → ER 14:09
DX: I10 Essential (primary) hypertension (principal); F41.9 Anxiety disorder, unspecified; E78.00 Pure hypercholesterolemia, unspecified; I25.10 Atherosclerotic heart disease of native coronary artery without angina pectoris; K58.9 Irritable bowel syndrome, unspecified; M79.7 Fibromyalgia; F31.9 Bipolar disorder, unspecified; Z87.440 Personal history of urinary (tract) infections; Z90.49 Acquired absence of other specified parts of digestive tract; Z90.89 Acquired absence of other organs; Z79.82 Long term (current) use of aspirin; Z88.1 Allergy status to other antibiotic agents; Z88.0 Allergy status to penicillin; Z88.5 Allergy status to narcotic agent; Z88.8 Allergy status to other drugs, medicaments and biological substances; Z82.49 Family history of ischemic heart disease and other diseases of the circulatory system
CPT/HCPCS: 36415; 80053; 83880; 84484; 85025; 93005

== ENCOUNTER 2019-01-10 07:13 | Day surgery (SDC) | payer MEDICARE, OTHER ==
[~2019-01-10] VITALS: Ht 167.6 cm; Wt 79.4 kg
[2019-01-10] VITALS (11 sets, daily range): BP systolic 105–165; BP diastolic 61–91
[~2019-01-10 07:13] MED LIST changes: +HYDR12.56 PO
[2019-01-10] MEDS ORDERED: NS IV 1000 ML 1,000 ML ONE (07:18)
[2019-01-10] MEDS ORDERED: HEParin (CATH LAB) 2,000 ML IV ONE (07:18)
[2019-01-10] MEDS ORDERED: LIDOCAINE 1% INJ 20 ML 20 ML VIAL ONE (07:18)
[2019-01-10] MEDS ORDERED: NS IV 1000 ML 1,000 ML IV SCH ×2 (07:30→10:36)
[2019-01-10 07:55] LABS: HEMOGLOBIN 9.9 G/DL (11.5-16.0); MEAN PLATELET VOLUME 9.1 FL (7.4-10.4); RED CELL DISTRIBUTION WIDTH 14.9 % (10.0-14.5); WHITE BLOOD COUNT 5.5 10^3/uL (4.3-11.0)
[2019-01-10 08:10] LABS: INR 1.1 (0.8-1.4); PROTHROMBIN TIME PATIENT 14.6 SEC (12.2-14.7)
[2019-01-10 08:13] LABS: ALANINE AMINOTRANSFERASE 13 U/L (0-55); ALBUMIN 4.1 GM/DL (3.2-4.5); ALKALINE PHOSPHATASE 81 U/L (40-136); BILIRUBIN,TOTAL 0.9 MG/DL (0.1-1.0); BUN/CREATININE RATIO 13; CALCIUM 9.4 MG/DL (8.5-10.1); CARBON DIOXIDE 27 MMOL/L (21-32); CHLORIDE 99 MMOL/L (98-107); CHOLESTEROL 178 MG/DL (< 200); CREATININE SERUM 0.91 MG/DL (0.60-1.30); GFR ESTIMATED > 60; GLUCOSE 91 MG/DL (70-105); HDL CHOLESTEROL 59 MG/DL (40-60); POTASSIUM 3.7 MMOL/L (3.6-5.0); SODIUM 134 MMOL/L (135-145); TOTAL PROTEIN 6.1 GM/DL (6.4-8.2); TRIGLYCERIDES 80 MG/DL (<150); VLDL CHOLESTEROL 16 MG/DL (5-40)
[2019-01-10] MEDS ORDERED: NITR0.4T39 SL (08:34)
[2019-01-10] MEDS ORDERED: ALPR1TAB2 PO (08:34)
[2019-01-10] MEDS ORDERED: BISO1TAB6 PO (08:34)
[2019-01-10] MEDS ORDERED: MIDAZOLAM 5 MG/5 ML (VERSED) VIAL ONE (09:30)
[2019-01-10] MEDS ORDERED: fentaNYL INJECTION 100 MCG/2 ML AMP ONE (09:30)
--- NOTE | 2019-01-10 10:36 | Cardiac Procedure Note-CS/ASA ---
Pre-Procedure Note Pre-Op Procedure Note H&P Reviewed The H&P was reviewed, patient examined and no changes noted. Date H&P Reviewed: Jan 10, 2019 Time H&P Reviewed: 09:30 Conscious Sedation Pre-Proced Time 09:30 ASA Score 3 For ASA 3 and 4: Consider anesthesia and medical clearance. Also, for patients with a history of failed moderate sedation consider anesthesia. Airway Lungs Heart ASA score ASA 1: a normal healthy patient ASA 2: a patient with a mild systemic disease (mid diabetes, controlled hypertension, obesity ASA 3: a patient with a severe systemic disease that limits activity (angina, COPD, prior Myocardial infarction) ASA 4: a patient with an incapacitating disease that is a constant threat to life (CHF, renal failure) ASA 5: a moribund patient not expected to survive 24 hrs. (ruptured aneurysm) ASA 6: a declared brain- patient whose organs are being harvested. For emergent operations, add the letter E after the classification Mallampati Classification Grade 2 Sedation Plan Analgesia, Amnesia, Plan communicated to team members, Discussed options with patient/fam, Discussed risks with patient/fam The patient is an appropriate candidate to undergo the planned procedure, sedation, and anesthesia. The patient immediately re-assessed prior to indication. CHAVEZ LR MD FACP FAC CCDS Jan 10, 2019 10:36
--- NOTE | 2019-01-10 10:40 | Discharge Inst-Post CATH ---
Discharge Inst-CATH/EP Problems Reviewed?: Yes Post Cardiac Cath/EP D/C Inst Follow Up/Plan F/u with Dr Galan in 2 weeks ACTIVITY * Go Home directly and rest. * Limit activity of the leg (or wrist if it was used) for 7 days including aerobics, swimming, jogging, bicycling, etc. * Restrict stair-climbing for 7 days if possible, if not, climb up with your non-cath leg, then bring together on the same step. * Avoid lifting, pushing, pulling or excessive movement of the affected extremity for 7 days. * Customary sexual activity may be resumed after 2 days-use caution not to use a position that strains or causes pain to the affected extremity. * No driving for 24 hours. * NO SMOKING. * Avoid straining for bowel movements for 7 days. * Gentle walking on level ground is allowed. * Returning to work will depend on the type of procedure and the results. Your doctor will discuss this with you. CALL YOUR DOCTOR FOR ANY OF THE FOLLOWING: *If bleeding from the puncture site occurs- Apply gentle pressure to site with clean cloth and call your doctor or EMS. * If a knot or lump forms under the skin, increases in size, or causes pain. * If bruising appears to be worsening or moving further down your leg instead of disappearing. * Temperature above 101 F. CARE OF YOUR GROIN INCISION; * Bruising or purple discoloration of the skin near the puncture site is common. * You may shower only, no bathtub bathing for 5 days. Be careful to avoid slipping as your leg may feel stiff. * If a closure device was used on your femoral artery, please see the attached guide regarding care of the device and your leg. * Leave dressing on FOR 24 hours. CARE OF YOUR WRIST INCISION; * Bruising or purple discoloration of the skin near the puncture site is common. * You may shower. * DO NOT submerge wrist. * Leave dressing on FOR 24 hours. CHAVEZ GALAN MD FACP FAC CCDS Jan 10, 2019 10:40
--- NOTE | 2019-01-10 10:40 | Discharge Inst-Cardiology ---
Discharge Inst-Cardiac Discharge Medications Continued Medications: Alprazolam (Xanax) 1 Mg Tablet 1 MG PO TID PRN, TAB Aspirin (Aspirin) 81 Mg Tab.chew 81 MG PO BID, TAB Baclofen (Baclofen) 10 Mg Tablet 20 MG PO TID, TAB TAKES 2 (10MG) TABLETS Bisoprolol Fumarate/Hctz (Bisoprolol-Hctz 10-6.25 mg Tab) 1 Each Tablet 1 EACH PO HS, TAB Citalopram Hydrobromide (Celexa) 40 Mg Tablet 40 MG PO DAILY, TAB Colestipol HCl (Colestipol HCl) 1 Gm Tablet 1 GM PO BID, TAB Dicyclomine HCl (Dicyclomine HCl) 20 Mg Tablet 40 MG PO BID, TAB TAKES 2 (20MG) TABLETS Doxycycline Hyclate (Doxycycline Hyclate) 100 Mg Tablet 100 MG PO BID WITH MEALS, #5 TAB Furosemide (Furosemide) 40 Mg Tablet 40 MG PO DAILY, TAB Gabapentin (Gabapentin) 600 Mg Tablet 1200 MG PO TID, TAB TAKES 2 (600MG) TABLETS Hydroxychloroquine Sulfate (Hydroxychloroquine Sulfate) 200 Mg Tablet 200 MG PO BID, TAB Lisinopril (Lisinopril) 40 Mg Tablet 40 MG PO HS, TAB Metoprolol Succinate (Metoprolol Succinate) 200 Mg Tab.er.24h 200 MG PO DAILY, TAB Nitroglycerin (Nitroglycerin) 0.4 Mg Tab.subl 0.4 MG SL UD PRN for CHEST PAIN, TAB Potassium Chloride (K-Tab ER) 20 Meq Tablet.er 20 MEQ PO DAILY, TAB LAST FILLED #15 5-26-19 Simvastatin (Simvastatin) 20 Mg Tablet 20 MG PO HS, TAB Sulfasalazine (Azulfidine) 500 Mg Tablet 1500 MG PO BID, TAB TAKES 3 (500MG) TABLETS Trazodone HCl (Trazodone HCl) 100 Mg Tablet 100 MG PO HS PRN for SLEEP, TAB CHAVEZ LR MD FACP FAC CCDS Jan 10, 2019 10:40
[2019-01-10] MEDS ORDERED: PATIENT MAY USE OWN MEDS, ALL PO SCH (10:45)
--- NOTE | 2019-01-10 13:22 | CARDIAC CATHETERIZATION ---
DATE OF SERVICE: 01/10/2019 CARDIAC CATHETERIZATION INDICATIONS: The patient is a 68-year-old lady, who has a history of coronary artery disease and multiple coronary artery disease risk factors, who has recently been diagnosed with diastolic heart failure. She has had increasing exertional shortness of breath, thought to be an angina equivalent. She has also had intermittent severe uncontrolled hypertension despite multiple medications. Cardiac catheterization was carried out today after having obtained an informed consent. Renal artery angiography was also planned because of severe uncontrolled hypertension. Informed consent was obtained for that. DESCRIPTION OF PROCEDURE: She was brought to the cardiac catheterization laboratory in a fasting state. Right groin was prepared and draped in the usual sterile fashion. Lidocaine 1% was used for local anesthesia. Modified Seldinger technique was used to advance a 5-Cymraes sheath in right femoral artery, 5-Cymraes JL4 catheter for left coronary angiography, 5-Cymraes JR4 catheter for right coronary angiography, 5-Cymraes pigtail catheter was used for left heart catheterization and left ventricular angiography. A 5-Cymraes catheter was then pulled back to the aortic root and aortic root angiography was performed. Engagement of the right coronary artery was undertaken very carefully because, it appears, the very proximal portion of the stent in the right coronary artery (placed at [facility] in [place], [place] in 2006) jet slightly into the aorta. This interferes with selective intubation of the right coronary artery. We were careful not to cause any stent damage with our catheter. Right coronary artery angiography was performed subselectively, but good angiographic views were obtained. ANGIOGRAPHY OF THE RENAL ARTERIES: Following completion of the cardiac catheterization procedure, we used a 5-Cymraes JR4 catheter to selectively engage both the left and the right renal artery. Angiography was performed. The catheter was removed. Angiography of the right femoral artery had been carried out through the sheath at the beginning of the procedure. At the end of the procedure, Mynx was used to achieve hemostasis. She tolerated the procedure well. HEMODYNAMICS: Left ventricular end-diastolic pressure following coronary angiography was 22 mmHg. There is no significant pressure gradient on pullback across the aortic valve. Ascending aortic pressure was 125/55 with a mean 84 mmHg. CORONARY ANGIOGRAPHY: Left main coronary artery, left anterior descending artery, left circumflex artery, right coronary artery do not exhibit angiographically significant obstructive disease. Right coronary artery is dominant. Right coronary artery has a patent stent in the ostial and proximal portions. This is known to be a Cypher stent that was placed at the [facility] in 2006, but the details of size are unknown. LEFT VENTRICULAR ANGIOGRAPHY: Left ventricular angiography was carried out in the right anterior oblique projection. Global left ventricular systolic function was normal. No regional wall motion abnormalities seen. AORTIC ROOT ANGIOGRAPHY: Aortic root angiography did not indicate any significant aortic root enlargement or aortic regurgitation. The ascending aorta and the thoracic aorta do not exhibit significant aneurysm or dissection. LEFT RENAL ARTERY ANGIOGRAPHY: Left renal artery does not exhibit any significant renal artery stenosis. RIGHT RENAL ARTERY ANGIOGRAPHY: Right renal artery is a dual system and neither artery exhibits any significant stenosis. CONCLUSIONS: 1. No angiographically significant obstructive coronary artery disease. 2. Patent stent in the ostial/proximal right coronary artery. 3. Normal global left ventricular systolic function with ejection fraction of 65%. 4. No significant renal artery stenosis. 5. Elevated left ventricular end-diastolic pressure. DISCUSSION AND RECOMMENDATIONS: Based on results of the study, it appears appropriate to continue a conservative approach and medical therapy. Outpatient followup is advised. Job ID: [id number] DocumentID: [id number] Dictated Date: 01/10/2019 10:33:12 Mechanic/Welder Date: 01/10/2019 13:21:44 Dictated By: CHAVEZ LR MD, MA, FACP, FACC,
== END 2019-01-10 14:40 | disposition home or self-care (01) ==
LOC: CATH 07:13 → SDC 10:47 → CATH 14:40
PROVIDERS: ATTEND Internal Medicine Cardiovascular Disease
DX: I25.10 Atherosclerotic heart disease of native coronary artery without angina pectoris (principal); I50.30 Unspecified diastolic (congestive) heart failure; I11.0 Hypertensive heart disease with heart failure; R22.43 Localized swelling, mass and lump, lower limb, bilateral; G61.82 Multifocal motor neuropathy; M19.90 Unspecified osteoarthritis, unspecified site; M48.02 Spinal stenosis, cervical region; M50.30 Other cervical disc degeneration, unspecified cervical region; E78.5 Hyperlipidemia, unspecified; F31.9 Bipolar disorder, unspecified; Z88.6 Allergy status to analgesic agent; Z88.1 Allergy status to other antibiotic agents; Z88.5 Allergy status to narcotic agent; Z88.0 Allergy status to penicillin; Z88.8 Allergy status to other drugs, medicaments and biological substances; Z79.82 Long term (current) use of aspirin; Z79.899 Other long term (current) drug therapy; Z80.0 Family history of malignant neoplasm of digestive organs; Z82.49 Family history of ischemic heart disease and other diseases of the circulatory system; Z83.3 Family history of diabetes mellitus
CPT/HCPCS: 36415; 80053; 80061; 85027; 85610; 85730; 87081; 93005; 93458; 93567

== ENCOUNTER → 2019-01-24 | Outpatient (CLI) | payer MEDICARE, OTHER ==
[~2019-01-24] MED LIST changes: +ALPR1TAB2 PO; +BISO1TAB6 PO; +NITR0.4T39 SL
[2019-01-24 14:39] LABS: BASOPHILS % (AUTO) 0 % (0-10); EOSINOPHILS # (AUTO) 0.1 10^3/uL (0.0-0.3); EOSINOPHILS % (AUTO) 1 % (0-10); HEMATOCRIT 27 % (35-52); HEMOGLOBIN 8.9 G/DL (11.5-16.0); LYMPHOCYTES # (AUTO) 0.7 X 10^3 (1.0-4.0); LYMPHOCYTES % (AUTO) 14 % (12-44); MEAN CORPUSCULAR HEMOGLOBIN 31 PG (25-34); MEAN CORPUSCULAR HGB CONC 33 G/DL (32-36); MEAN CORPUSCULAR VOLUME 97 FL (80-99); MEAN PLATELET VOLUME 8.5 FL (7.4-10.4); MONOCYTES # (AUTO) 0.4 X 10^3 (0.0-1.0); MONOCYTES % (AUTO) 8 % (0-12); NEUTROPHILS # (AUTO) 3.6 X 10^3 (1.8-7.8); NEUTROPHILS % (AUTO) 76 % (42-75); PLATELET COUNT 320 10^3/uL (130-400); RED CELL DISTRIBUTION WIDTH 14.9 % (10.0-14.5); WHITE BLOOD COUNT 4.8 10^3/uL (4.3-11.0)
[2019-01-24 15:03] LABS: BILIRUBIN,TOTAL 0.9 MG/DL (0.1-1.0); CALCIUM 8.7 MG/DL (8.5-10.1); CREATININE SERUM 1.14 MG/DL (0.60-1.30); POTASSIUM 4.3 MMOL/L (3.6-5.0); TOTAL PROTEIN 6.1 GM/DL (6.4-8.2)
[2019-01-24 15:24] LABS: FREE T4 (FREE THYROXINE) 0.89 NG/DL (0.70-1.48)
== END ==
LOC: LAB 14:12
PROVIDERS: ATTEND Internal Medicine
DX: Z00.00 Encounter for general adult medical examination without abnormal findings (principal); E03.9 Hypothyroidism, unspecified; D64.9 Anemia, unspecified; E55.9 Vitamin D deficiency, unspecified; E78.00 Pure hypercholesterolemia, unspecified; E78.1 Pure hyperglyceridemia; E53.8 Deficiency of other specified B group vitamins; R73.9 Hyperglycemia, unspecified; R74.8 Abnormal levels of other serum enzymes
CPT/HCPCS: 36415; 80053; 80061; 82306; 82607; 82728; 82746; 82977; 83036; 83540; 84439; 84443; 85025

== ENCOUNTER → 2019-02-10 | Outpatient (CLI) | payer MEDICARE, OTHER ==
[~2019-02-10] MED LIST changes: +CATHETER FLUSH 10 ML SYR IV PRN; +HOLD METFORMIN - RECEIVED CONTRAST 20 ML VIAL IV SCH; +IOHEXOL 350 MG/ML 100 ML (OMNIPAQUE 350) VIAL IV ONE; +NS 100 ML (IVPB) BAG IV ONE; +RT-ALBUTEROL SULF 2.5 MG/3 ML PRE-MIX VIAL INH ONE; +RT-ALBUTEROL SULF 2.5 MG/3 ML PRE-MIX VIAL ONE
[2019-02-10 11:34] LABS: CREATININE SERUM 1.05 MG/DL (0.60-1.30)
--- NOTE | 2019-02-10 13:13 | Diagnostic Imaging Report ---
PROCEDURE: CT chest with contrast only. TECHNIQUE: Multiple contiguous axial images were obtained through the chest after administration of intravenous contrast. Auto Exposure Controls were utilized during the CT exam to meet ALARA standards for radiation dose reduction. DATE: February 10, 2019. COMPARISON: Chest radiograph October [id number]. CT chest January 20, 2013. INDICATION: 68-year-old male, dyspnea, cough. Shortness of breath. FINDINGS: There is a 3 mm reticular nodular opacity in the right lung apex stable since January 2013 consistent with benign etiology. There is no identified new or otherwise noted pulmonary nodule. There is some respiratory motion artifact. There is no pneumothorax. There is no pleural effusion. The central airways are patent. There is no focal airspace consolidation. There is nondiagnostic evaluation for subsegmental pulmonary emboli given the degree of motion related artifact. There is not identified central or segmental pulmonary embolus. The main pulmonary artery is normal in caliber. The heart is not enlarged. There is no pericardial effusion. There are atherosclerotic calcifications. There is a right hilar lymph node on axial image 46 measuring 10 mm in short axis. There is no abnormally enlarged axillary or mediastinal lymph node. The patient is status post cholecystectomy. Additional evaluation of the imaged portions of the upper abdomen is unremarkable. There are multilevel degenerative changes of the spine. There is no identified acute bony abnormality. IMPRESSION: CT CHEST. 1. No identified acute cardiopulmonary abnormality. Dictated by: Dictated on workstation # [id number]
== END ==
LOC: RAD 10:59
PROVIDERS: ATTEND Nurse Practitioner Family
DX: J30.9 Allergic rhinitis, unspecified (principal); J18.9 Pneumonia, unspecified organism; Z90.49 Acquired absence of other specified parts of digestive tract
CPT/HCPCS: 36415; 71260; 82565; 84520; 94060; 94726; 94729

== ENCOUNTER 2019-05-15 15:33 | Outpatient (RCR) | payer MEDICARE, OTHER ==
[~2019-05-15 15:33] MED LIST changes: +BISO-3 PO; -BISO1TAB6 PO; -CATHETER FLUSH 10 ML SYR IV PRN; -HOLD METFORMIN - RECEIVED CONTRAST 20 ML VIAL IV SCH; -IOHEXOL 350 MG/ML 100 ML (OMNIPAQUE 350) VIAL IV ONE; -METO-370 PO; +METO50TA7 PO; -NS 100 ML (IVPB) BAG IV ONE; -RT-ALBUTEROL SULF 2.5 MG/3 ML PRE-MIX VIAL INH ONE; -RT-ALBUTEROL SULF 2.5 MG/3 ML PRE-MIX VIAL ONE; +SIMV20TA26 PO; +SLF500T PO; -SULF500T7 PO; -TRAZ-190 PO; +TRAZ-227 PO
[2019-05-15 15:48] LABS: BASOPHILS % (AUTO) 1 % (0-10); EOSINOPHILS # (AUTO) 0.3 10^3/uL (0.0-0.3); EOSINOPHILS % (AUTO) 4 % (0-10); HEMATOCRIT 33 % (35-52); LYMPHOCYTES % (AUTO) 17 % (12-44); MEAN CORPUSCULAR HEMOGLOBIN 32 PG (25-34); MEAN CORPUSCULAR HGB CONC 34 G/DL (32-36); MEAN CORPUSCULAR VOLUME 96 FL (80-99); MEAN PLATELET VOLUME 8.6 FL (7.4-10.4); MONOCYTES # (AUTO) 0.8 X 10^3 (0.0-1.0); MONOCYTES % (AUTO) 14 % (0-12); NEUTROPHILS # (AUTO) 3.7 X 10^3 (1.8-7.8); NEUTROPHILS % (AUTO) 64 % (42-75); PLATELET COUNT 338 10^3/uL (130-400); RED CELL DISTRIBUTION WIDTH 12.2 % (10.0-14.5); WHITE BLOOD COUNT 5.7 10^3/uL (4.3-11.0)
[2019-05-15 16:25] LABS: BILIRUBIN,TOTAL 0.7 MG/DL (0.1-1.0); CALCIUM 8.9 MG/DL (8.5-10.1); CREATININE SERUM 1.33 MG/DL (0.60-1.30); TOTAL PROTEIN 6.4 GM/DL (6.4-8.2)
== END 2019-08-13 | disposition home or self-care (01) ==
LOC: LAB 15:33
PROVIDERS: ATTEND Nurse Practitioner Family
DX: Z51.81 Encounter for therapeutic drug level monitoring (principal); Z79.899 Other long term (current) drug therapy
CPT/HCPCS: 36415; 80053; 85025

== ENCOUNTER → 2019-06-08 | Outpatient (CLI) | payer MEDICARE, OTHER ==
[~2019-06-08] MED LIST changes: +TRAZ-190 PO; -TRAZ-227 PO
[2019-06-08 12:16] LABS: BASOPHILS % (AUTO) 1 % (0-10); EOSINOPHILS # (AUTO) 0.1 10^3/uL (0.0-0.3); EOSINOPHILS % (AUTO) 2 % (0-10); HEMATOCRIT 32 % (35-52); HEMOGLOBIN 11.1 G/DL (11.5-16.0); LYMPHOCYTES # (AUTO) 0.7 X 10^3 (1.0-4.0); LYMPHOCYTES % (AUTO) 17 % (12-44); MEAN CORPUSCULAR HEMOGLOBIN 32 PG (25-34); MEAN CORPUSCULAR HGB CONC 34 G/DL (32-36); MEAN CORPUSCULAR VOLUME 94 FL (80-99); MEAN PLATELET VOLUME 8.5 FL (7.4-10.4); MONOCYTES # (AUTO) 0.4 X 10^3 (0.0-1.0); MONOCYTES % (AUTO) 10 % (0-12); NEUTROPHILS % (AUTO) 70 % (42-75); PLATELET COUNT 265 10^3/uL (130-400); RED CELL DISTRIBUTION WIDTH 12.6 % (10.0-14.5); WHITE BLOOD COUNT 4.3 10^3/uL (4.3-11.0)
[2019-06-08 12:41] LABS: ALANINE AMINOTRANSFERASE 15 U/L (0-55); ALBUMIN 3.8 GM/DL (3.2-4.5); ALKALINE PHOSPHATASE 69 U/L (40-136); BILIRUBIN,TOTAL 0.8 MG/DL (0.1-1.0); BUN/CREATININE RATIO 11; CALCIUM 9.1 MG/DL (8.5-10.1); CARBON DIOXIDE 28 MMOL/L (21-32); CHLORIDE 98 MMOL/L (98-107); CHOLESTEROL 147 MG/DL (< 200); GFR ESTIMATED > 60; GLUCOSE 89 MG/DL (70-105); HDL CHOLESTEROL 54 MG/DL (40-60); POTASSIUM 4.3 MMOL/L (3.6-5.0); SODIUM 132 MMOL/L (135-145); TRIGLYCERIDES 53 MG/DL (<150); VLDL CHOLESTEROL 11 MG/DL (5-40)
[2019-06-08 13:02] LABS: FREE T4 (FREE THYROXINE) 0.89 NG/DL (0.70-1.48)
== END ==
LOC: LAB 11:53
PROVIDERS: ATTEND Internal Medicine
DX: E03.9 Hypothyroidism, unspecified (principal); D64.9 Anemia, unspecified; E78.1 Pure hyperglyceridemia; E78.00 Pure hypercholesterolemia, unspecified; E53.8 Deficiency of other specified B group vitamins
CPT/HCPCS: 36415; 80053; 80061; 82607; 82728; 82746; 83540; 84439; 84443; 85025

== ENCOUNTER 2019-11-09 17:19 | Outpatient (RCR) | payer MEDICARE, OTHER ==
[2019-11-09 17:55] LABS: BASOPHILS % (AUTO) 0 % (0-10); EOSINOPHILS # (AUTO) 0.1 10^3/uL (0.0-0.3); EOSINOPHILS % (AUTO) 1 % (0-10); HEMATOCRIT 33 % (35-52); HEMOGLOBIN 11.5 G/DL (11.5-16.0); LYMPHOCYTES # (AUTO) 0.9 X 10^3 (1.0-4.0); LYMPHOCYTES % (AUTO) 18 % (12-44); MEAN CORPUSCULAR HEMOGLOBIN 33 PG (25-34); MEAN CORPUSCULAR HGB CONC 35 G/DL (32-36); MEAN CORPUSCULAR VOLUME 95 FL (80-99); MEAN PLATELET VOLUME 8.9 FL (7.4-10.4); MONOCYTES # (AUTO) 0.5 X 10^3 (0.0-1.0); MONOCYTES % (AUTO) 10 % (0-12); NEUTROPHILS # (AUTO) 3.3 X 10^3 (1.8-7.8); NEUTROPHILS % (AUTO) 70 % (42-75); PLATELET COUNT 235 10^3/uL (130-400); WHITE BLOOD COUNT 4.7 10^3/uL (4.3-11.0)
[2019-11-09 18:05] LABS: ALBUMIN 4.2 GM/DL (3.2-4.5)
[2019-11-09 18:07] LABS: CALCIUM 9.2 MG/DL (8.5-10.1)
[2019-11-09 18:08] LABS: TOTAL PROTEIN 6.5 GM/DL (6.4-8.2)
[2019-11-09 18:10] LABS: BILIRUBIN,TOTAL 1.3 MG/DL (0.1-1.0)
[2019-11-09 18:12] LABS: CREATININE SERUM 0.94 MG/DL (0.60-1.30)
== END 2020-02-07 | disposition home or self-care (01) ==
LOC: LAB 17:19
PROVIDERS: ATTEND Nurse Practitioner Family
DX: Z51.81 Encounter for therapeutic drug level monitoring (principal); Z79.899 Other long term (current) drug therapy
CPT/HCPCS: 36415; 80053; 85025

== ENCOUNTER → 2019-11-09 | Outpatient (CLI) | payer MEDICARE, OTHER ==
[~2019-11-09] MED LIST changes: -TRAZ-190 PO; +TRAZ-227 PO
[2019-11-09 17:42] LABS: BASOPHILS % (AUTO) 0 % (0-10); EOSINOPHILS # (AUTO) 0.1 10^3/uL (0.0-0.3); EOSINOPHILS % (AUTO) 1 % (0-10); HEMATOCRIT 33 % (35-52); HEMOGLOBIN 11.5 G/DL (11.5-16.0); LYMPHOCYTES # (AUTO) 0.9 X 10^3 (1.0-4.0); LYMPHOCYTES % (AUTO) 18 % (12-44); MEAN CORPUSCULAR HEMOGLOBIN 33 PG (25-34); MEAN CORPUSCULAR HGB CONC 35 G/DL (32-36); MEAN CORPUSCULAR VOLUME 95 FL (80-99); MEAN PLATELET VOLUME 8.9 FL (7.4-10.4); MONOCYTES # (AUTO) 0.5 X 10^3 (0.0-1.0); MONOCYTES % (AUTO) 10 % (0-12); NEUTROPHILS # (AUTO) 3.3 X 10^3 (1.8-7.8); NEUTROPHILS % (AUTO) 70 % (42-75); PLATELET COUNT 235 10^3/uL (130-400); RED CELL DISTRIBUTION WIDTH 12.4 % (10.0-14.5); WHITE BLOOD COUNT 4.7 10^3/uL (4.3-11.0)
[2019-11-09 18:03] LABS: ALBUMIN 4.2 GM/DL (3.2-4.5)
[2019-11-09 18:05] LABS: CALCIUM 9.3 MG/DL (8.5-10.1)
[2019-11-09 18:06] LABS: TOTAL PROTEIN 6.5 GM/DL (6.4-8.2)
[2019-11-09 18:08] LABS: BILIRUBIN,TOTAL 1.3 MG/DL (0.1-1.0)
[2019-11-09 18:10] LABS: CREATININE SERUM 0.95 MG/DL (0.60-1.30)
[2019-11-09 18:36] LABS: FREE T4 (FREE THYROXINE) 0.89 NG/DL (0.70-1.48)
== END ==
LOC: LAB 17:21
PROVIDERS: ATTEND Internal Medicine
DX: Z13.6 Encounter for screening for cardiovascular disorders (principal); E03.9 Hypothyroidism, unspecified; D50.9 Iron deficiency anemia, unspecified
CPT/HCPCS: 36415; 80053; 82465; 82728; 83540; 84439; 84443; 84478; 85025

== ENCOUNTER → 2020-03-19 | Outpatient (CLI) | payer MEDICARE, OTHER ==
--- NOTE | 2020-03-19 16:15 | Diagnostic Imaging Report ---
INDICATION: Routine screening. COMPARISON: 10/01/2014 and 10/21/2012. TECHNIQUE: 2D and 3D bilateral screening mammography was performed with CAD. FINDINGS: Scattered fibroglandular densities are identified bilaterally. A benign nodule in the outer left breast is noted. No spiculated mass or malignant appearing microcalcifications are seen. The axillae are unremarkable. IMPRESSION: No mammographic features suspicious for malignancy are identified. ACR BI-RADS Category 2: Benign findings. Result letter will be mailed to the patient. Note: At least 10% of breast cancer is not imaged by mammography. Dictated by: Dictated on workstation # [id number]
--- NOTE | 2020-03-19 16:16 | Diagnostic Imaging Report ---
INDICATION: Cough. TIME OF EXAM: 3:17 PM. COMPARISON: 10/24/2018. FINDINGS: The heart size is normal. The lungs are clear. There are no infiltrates. No effusion or pneumothorax is detected. IMPRESSION: No acute cardiopulmonary process is detected. Dictated by: Dictated on workstation # [id number]
== END ==
LOC: RAD 14:56
PROVIDERS: ATTEND Internal Medicine
DX: Z12.31 Encounter for screening mammogram for malignant neoplasm of breast (principal); R05 Cough
CPT/HCPCS: 71046; 77063; 77067

== ENCOUNTER → 2020-05-02 | Outpatient (CLI) | payer MEDICARE, OTHER ==
[~2020-05-02] MED LIST changes: +CATHETER FLUSH 10 ML SYR IV PRN; +HOLD METFORMIN - RECEIVED CONTRAST 20 ML VIAL IV SCH; +IOHEXOL 350 MG/ML 100 ML (OMNIPAQUE 350) VIAL IV ONE; +NS 100 ML (IVPB) BAG IV ONE; +RT-ALBUTEROL SULF 2.5 MG/3 ML PRE-MIX VIAL INH ONE
[2020-05-02 11:59] LABS: CREATININE SERUM 0.95 MG/DL (0.60-1.30)
--- NOTE | 2020-05-02 14:50 | Diagnostic Imaging Report ---
PROCEDURE: CT chest with contrast only. TECHNIQUE: Multiple contiguous axial images were obtained through the chest after administration of intravenous contrast. Auto Exposure Controls were utilized during the CT exam to meet ALARA standards for radiation dose reduction. INDICATION: Cough The previous CT chest exam of 02/10/2019 noted a 3 mm reticulonodular opacity in the right apex. This seemed stable when compared to the prior exam of 01/20/2013. On this exam, that finding is not as well appreciated but does not appear to have changed adversely. There is no other parenchymal lung mass visualized. The lungs seem generally clear. There is no sign of failure, pneumonia or of a pleural effusion. The heart size is within normal limits. Coronary artery calcifications are noted. The aorta is not abnormally dilated and there is no sign of a dissection. There is no defect within the pulmonary arteries to indicate a pulmonary embolus either. There is no mediastinal or hilar adenopathy. The thyroid gland, where visualized, is unremarkable. There is no obvious breast mass. There are a few nodes in each axilla. These are not pathologically enlarged and seem similar to the prior exam. The sections through the upper abdomen failed to show any sign of an acute abnormality. The bone windows show no evidence for a fracture or for a destructive lesion. However there is extensive calcification of the anterior longitudinal ligament as well as osteophyte formation along the ventral aspect of the mid and lower thoracic spine. IMPRESSION: 1. There is no evidence for an acute cardiopulmonary abnormality. 2. The small reticular density in the right apex seen on the previous study is not as well-visualized on this exam but does not appear to have changed adversely. 3. There is coronary artery disease. Dictated by: Dictated on workstation # [id number]
== END ==
LOC: RT 11:19
PROVIDERS: ATTEND Internal Medicine
DX: I25.10 Atherosclerotic heart disease of native coronary artery without angina pectoris (principal); J98.4 Other disorders of lung; I10 Essential (primary) hypertension; E78.00 Pure hypercholesterolemia, unspecified
CPT/HCPCS: 36415; 71260; 82565; 84520; 94060; 94726; 94729

== ENCOUNTER → 2020-05-24 | Outpatient (CLI) | payer MEDICARE, OTHER ==
[~2020-05-24] MED LIST changes: -CATHETER FLUSH 10 ML SYR IV PRN; -FOLI1TAB24 PO; +FOLI1TAB33 PO; -HOLD METFORMIN - RECEIVED CONTRAST 20 ML VIAL IV SCH; -IOHEXOL 350 MG/ML 100 ML (OMNIPAQUE 350) VIAL IV ONE; -NS 100 ML (IVPB) BAG IV ONE; -RT-ALBUTEROL SULF 2.5 MG/3 ML PRE-MIX VIAL INH ONE
== END ==
LOC: CARD 14:30
PROVIDERS: ATTEND Internal Medicine
DX: I34.0 Nonrheumatic mitral (valve) insufficiency (principal)
CPT/HCPCS: 93306

== ENCOUNTER → 2020-09-09 | Outpatient (CLI) | payer MEDICARE, OTHER ==
[~2020-09-09] MED LIST changes: +ACYC-112 PO; -LISI40TA PO; +LISI40TA9 PO
[2020-09-09 14:49] LABS: BASOPHILS % (AUTO) 0 % (0-10); EOSINOPHILS # (AUTO) 0.1 10^3/uL (0.0-0.3); EOSINOPHILS % (AUTO) 2 % (0-10); HEMATOCRIT 30 % (35-52); HEMOGLOBIN 10.3 g/dL (11.5-16.0); LYMPHOCYTES # (AUTO) 0.9 10^3/uL (1.0-4.0); LYMPHOCYTES % (AUTO) 20 % (12-44); MEAN CORPUSCULAR HEMOGLOBIN 32 pg (25-34); MEAN CORPUSCULAR HGB CONC 34 g/dL (32-36); MEAN CORPUSCULAR VOLUME 95 fL (80-99); MEAN PLATELET VOLUME 9.1 fL (9.0-12.2); MONOCYTES # (AUTO) 0.4 10^3/uL (0.0-1.0); MONOCYTES % (AUTO) 9 % (0-12); NEUTROPHILS # (AUTO) 3.2 10^3/uL (1.8-7.8); NEUTROPHILS % (AUTO) 69 % (42-75); PLATELET COUNT 205 10^3/uL (130-400); WHITE BLOOD COUNT 4.7 10^3/uL (4.3-11.0)
[2020-09-09 15:01] LABS: CHLORIDE 96 MMOL/L (98-107); POTASSIUM 4.2 MMOL/L (3.6-5.0); SODIUM 131 MMOL/L (135-145)
[2020-09-09 15:03] LABS: TRIGLYCERIDES 50 MG/DL (<150); VLDL CHOLESTEROL 10 MG/DL (5-40)
[2020-09-09 15:04] LABS: GLUCOSE 89 MG/DL (70-105); TOTAL PROTEIN 6.2 GM/DL (6.4-8.2)
[2020-09-09 15:05] LABS: BILIRUBIN,TOTAL 1.1 MG/DL (0.1-1.0); CARBON DIOXIDE 28 MMOL/L (21-32)
[2020-09-09 15:07] LABS: ALKALINE PHOSPHATASE 82 U/L (40-136); CREATININE SERUM 0.92 MG/DL (0.60-1.30); GFR ESTIMATED > 60
[2020-09-09 15:08] LABS: CHOLESTEROL 153 MG/DL (< 200)
[2020-09-09 15:09] LABS: BUN/CREATININE RATIO 9
[2020-09-09 15:10] LABS: HDL CHOLESTEROL 64 MG/DL (40-60)
[2020-09-09 15:11] LABS: ALANINE AMINOTRANSFERASE 16 U/L (0-55)
== END ==
LOC: LAB 13:40
PROVIDERS: ATTEND Internal Medicine
DX: Z13.6 Encounter for screening for cardiovascular disorders (principal); I10 Essential (primary) hypertension; D50.9 Iron deficiency anemia, unspecified
CPT/HCPCS: 36415; 80053; 80061; 82728; 83540; 83550; 84443; 85025

== ENCOUNTER → 2021-04-23 | Outpatient (CLI) | payer MEDICARE, OTHER ==
[~2021-04-23] MED LIST changes: +BISO-2 PO; -BISO1TAB3 PO; -CITA40TA11 PO; +CITA40TA13 PO; +CYCL10TA25 PO; -CYCL10TA9 PO; +DICY20TA PO; -DICY20TA10 PO; +MIRT-68 PO; -MIRT15TA6 PO
[2021-04-23 19:53] LABS: BASOPHILS % (AUTO) 1 % (0-10); EOSINOPHILS # (AUTO) 0.1 10^3/uL (0.0-0.3); EOSINOPHILS % (AUTO) 1 % (0-10); HEMATOCRIT 33 % (35-52); HEMOGLOBIN 11.1 g/dL (11.5-16.0); LYMPHOCYTES # (AUTO) 1.1 10^3/uL (1.0-4.0); LYMPHOCYTES % (AUTO) 27 % (12-44); MEAN CORPUSCULAR HEMOGLOBIN 32 pg (25-34); MEAN CORPUSCULAR HGB CONC 34 g/dL (32-36); MEAN CORPUSCULAR VOLUME 96 fL (80-99); MEAN PLATELET VOLUME 9.1 fL (9.0-12.2); MONOCYTES # (AUTO) 0.6 10^3/uL (0.0-1.0); MONOCYTES % (AUTO) 14 % (0-12); NEUTROPHILS # (AUTO) 2.3 10^3/uL (1.8-7.8); NEUTROPHILS % (AUTO) 57 % (42-75); PLATELET COUNT 223 10^3/uL (130-400)
[2021-04-23 20:04] LABS: ALBUMIN 4.1 GM/DL (3.2-4.5); POTASSIUM 4.2 MMOL/L (3.6-5.0)
[2021-04-23 20:06] LABS: CALCIUM 9.3 MG/DL (8.5-10.1)
[2021-04-23 20:07] LABS: TOTAL PROTEIN 6.6 GM/DL (6.4-8.2)
[2021-04-23 20:10] LABS: CREATININE SERUM 0.95 MG/DL (0.60-1.30)
[2021-04-23 20:35] LABS: FREE T4 (FREE THYROXINE) 0.91 NG/DL (0.70-1.48)
== END ==
LOC: LAB 19:20
PROVIDERS: ATTEND Internal Medicine
DX: E78.00 Pure hypercholesterolemia, unspecified (principal); E03.9 Hypothyroidism, unspecified; D50.9 Iron deficiency anemia, unspecified; I10 Essential (primary) hypertension
CPT/HCPCS: 36415; 80053; 82465; 82728; 83540; 83550; 84439; 84443; 84478; 85025

== ENCOUNTER 2021-08-02 20:16 | Inpatient (IN) | payer MEDICARE, OTHER ==
[~2021-08-02] VITALS: Ht 167.7 cm; Wt 83.6 kg
[2021-08-02] MEDS ORDERED: CEFEPIME INJECTION 1,000 MG in NS (IVPB) 50 ML IV ONE (21:00)
[2021-08-02] MEDS ORDERED: NS IV 1000 ML 1,000 ML IV SCH ×3 (21:00→23:45)
[2021-08-02] MEDS ORDERED: MEROPENEM 1,000 MG in NS (IVPB) 100 ML IV ONE (21:00)
--- NOTE | 2021-08-02 21:03 | Diagnostic Imaging Report ---
PROCEDURE: CT head wo r/o stroke. TECHNIQUE: Multiple contiguous axial images were obtained through the brain without the use of intravenous contrast. Auto Exposure Controls were utilized during the CT exam to meet ALARA standards for radiation dose reduction. INDICATION: Neurological deficit. Altered mental status, facial droop COMPARISON: 10/24/2018 FINDINGS: The ventricles and cortical sulci are age-appropriate. There is no midline shift or significant mass effect. No acute intracranial hemorrhage is seen. There are scattered areas of hypoattenuation in the white matter which are likely from chronic microvascular disease. There is no CT evidence of acute territorial ischemia. The calvarium appears intact. Visualized nasal sinuses appear clear. IMPRESSION: 1. No acute intracranial hemorrhage or CT evidence of acute territorial ischemia. Findings discussed with Dr. Brownlee by Dr. Rojas, on 08/02/2021 8:53 PM. Dictated by: Dictated on workstation # [id number]
[2021-08-02 21:08] LABS: ABG BASE EXCESS -1.4 MMOL/L (-2.5-2.5); ABG OXYGEN SATURATION 98 % (94-100); ABG PCO2 28 MMHG (35-45); ABG PO2 106 MMHG (79-93); ABG TCO2 22.1 MMOL/L (21.0-31.0); ALLENS TEST YES-POS; INSPIRED O2 ROOM AIR; PATIENT TEMP 37.9; VENTILATOR NO
[2021-08-02 21:08] LABS: BASOPHILS % (AUTO) 0 % (0-10); EOSINOPHILS % (AUTO) 0 % (0-10); HEMATOCRIT 28 % (35-52); HEMOGLOBIN 9.5 g/dL (11.5-16.0); LYMPHOCYTES # (AUTO) 0.6 10^3/uL (1.0-4.0); LYMPHOCYTES % (AUTO) 3 % (12-44); MEAN CORPUSCULAR HEMOGLOBIN 32 pg (25-34); MEAN CORPUSCULAR HGB CONC 34 g/dL (32-36); MEAN CORPUSCULAR VOLUME 94 fL (80-99); MEAN PLATELET VOLUME 9.9 fL (9.0-12.2); MONOCYTES % (AUTO) 11 % (0-12); NEUTROPHILS # (AUTO) 15.5 10^3/uL (1.8-7.8); NEUTROPHILS % (AUTO) 85 % (42-75); PLATELET COUNT 225 10^3/uL (130-400); WHITE BLOOD COUNT 18.3 10^3/uL (4.3-11.0)
[2021-08-02 21:11] LABS: CLARITY,URINE CLEAR; COLOR,URINE AMBER; GLUCOSE, URINE (UA) NEGATIVE (NEGATIVE); KETONES,URINE TRACE (NEGATIVE); LEUKOCYTE ESTERASE ,URINE 3+ (NEGATIVE); NITRITE,URINE NEGATIVE (NEGATIVE); PH,URINE 5.5 (5-9); PROTEIN,URINE 2+ (NEGATIVE)
--- NOTE | 2021-08-02 21:12 | Diagnostic Imaging Report ---
PATIENT HISTORY: delirium. Altered mental status TECHNIQUE: Single frontal view of the chest. COMPARISON: 03/19/2020 FINDINGS: The lung volumes are normal. No focal consolidation is seen. No large pleural effusion or pneumothorax is seen. The cardiomediastinal silhouette is normal in size and contour. No acute osseous abnormality is seen. IMPRESSION: No acute pulmonary abnormality seen. Dictated by: Dictated on workstation # [id number]
[2021-08-02 21:14] LABS: ALBUMIN 3.5 GM/DL (3.2-4.5); CHLORIDE 96 MMOL/L (98-107); POTASSIUM 3.7 MMOL/L (3.6-5.0); SODIUM 131 MMOL/L (135-145)
[2021-08-02 21:16] LABS: FIBRIN DEGRADATION PRODUCTS 1.92 UG/ML (0.00-0.49); INR 1.5 (0.8-1.4); PROTHROMBIN TIME PATIENT 18.2 SEC (12.2-14.7)
[2021-08-02 21:17] LABS: GLUCOSE 118 MG/DL (70-105); TOTAL PROTEIN 6.4 GM/DL (6.4-8.2)
[2021-08-02 21:18] LABS: BILIRUBIN,TOTAL 1.8 MG/DL (0.1-1.0); CARBON DIOXIDE 19 MMOL/L (21-32)
--- NOTE | 2021-08-02 21:18 | ED Neurological Problem ---
General Chief Complaint: Altered Mental Status Stated Complaint: CONFUSION Nursing Triage Note: FAMILY STATES PATIENT CONFUSED, PILLS FOUND IN ROOM, SOME NOT IN BOTTLES. PATIENT BROUGHT BY EMS, POLICE AT [facility], PATIENT COMPLAINT OF SORE THROAT. ALERT X3. Source: patient, EMS, [facility] records, old records, spouse Exam Limitations: no limitations History of Present Illness Date Seen by Provider: Aug 02, 2021 Time Seen by Provider: 20:22 Initial Comments Patient [facility] with chief complaint she is been having a lot of falls lately which is not unusual for her but her says they were just down for a month in [facility] got back 3 to 4 days ago when she was doing well until yesterday and today she started being more tired and every question he would ask her she would reply with just a minute and hold her finger up. He says she would not answer it appropriately and was very confused. He says 3 weeks ago she was put on Macrobid for a UTI while they were in [place]. He does not notice has been complaining of any i llness except for a cough here lately. He thought maybe she had a cold because she was complaining of sore throat and a cough. No fevers or chills nausea vomiting chest pain. The patient has to think before answering questions and frequently repeats just a minute and holds up the finger. He has not noticed any facial droop or lateralizing weakness. Nursing reports they saw a lot of bruising on her knees which the patient explained because she is been having a lot of falls lately. Patient denies any pain. When he found her before he called EMS today she was on the bed and had all of her pills spilled out of the bottles. He does not suspect that she took any extra is. He denies that she has any history of depression or suicidal ideation. He thinks she was trying to set up her pill bottle but became confused so he skipped the mall into a Ziploc bag and brought them with him. Allergies and Home Medications Allergies Coded Allergies: celecoxib (Verified Allergy, Severe, TAKES ASPIRIN AT HOME, 10/19/18) SOA penicillin G (Verified Allergy, Mild, 10/19/18) HIVES divalproex sodium (Verified Allergy, Unknown, 10/19/18) JOINT PAIN, "GUMS BECOME LOSE AROUND TEETH" meperidine (Verified Allergy, Unknown, 10/19/18) LOSES CONTROL OF HANDS AND ARMS morphine (Verified Allergy, Unknown, 10/19/18) FLU LIKE SYMPTOMS ofloxacin (Verified Allergy, Unknown, 10/19/18) TACHYCARDIA promethazine (Verified Allergy, Unknown, 05/28/08) propoxyphene (Verified Allergy, Unknown, 10/19/18) LOSES CONTROL OF HANDS AND ARMS telavancin (Unverified Adverse Reaction, Severe, 10/19/18) SUICIDAL lamotrigine (Unverified Adverse Reaction, Intermediate, BODY JERKS, 10/19/18) SUICIDAL amitriptyline (Verified Adverse Reaction, Mild, 10/19/18) LOSES CONTROL OF HANDS AND ARMS azithromycin (Verified Adverse Reaction, Mild, 10/19/18) FLU LIKE SYMPTOMS erythromycin base (Verified Adverse Reaction, Mild, 10/19/18) NAUSEA, VOMITING promethazine HCl (Unverified Adverse Reaction, Mild, 10/19/18) HALLUCINATIONS Patient Home Medication List Home Medication List Reviewed: Yes Alprazolam (Xanax) 1 Mg Tablet, 1 MG PO TID PRN, (Reported) Entered as Reported by: ANNE CURTIS on 01/10/19 0834 Aspirin (Aspirin) 81 Mg Tab.chew, 81 MG PO BID, (Reported) Entered as Reported by: ALVIN GARVEY on 10/20/18 1034 Baclofen (Baclofen) 10 Mg Tablet, 20 MG PO TID, (Reported) Entered as Reported by: ALVIN GARVEY on 01/16/16 0838 Bisoprolol Fumarate/Hctz (Bisoprolol-Hctz 10-6.25 mg Tab) 1 Each Tablet, 1 EACH PO HS, (Reported) Entered as Reported by: ANNE CURTIS on 01/10/19 0834 Citalopram Hydrobromide (Celexa) 40 Mg Tablet, 40 MG PO DAILY, (Reported) Entered as Reported by: ALVIN GARVEY on 10/20/18 1034 Colestipol HCl (Colestipol HCl) 1 Gm Tablet, 1 GM PO BID, (Reported) Entered as Reported by: JUAN BONNER on 05/22/17 1453 Dicyclomine HCl (Dicyclomine HCl) 20 Mg Tablet, 40 MG PO BID, (Reported) Entered as Reported by: ALVIN GARVEY on 10/20/18 1034 Doxycycline Hyclate (Doxycycline Hyclate) 100 Mg Tablet, 100 MG PO BID WITH MARIPOSA LS Prescribed by: LINDSAY GRACIA on 10/24/18 1347 Furosemide (Furosemide) 40 Mg Tablet, 40 MG PO DAILY, (Reported) Entered as Reported by: ALVIN GARVEY on 10/20/18 1034 Gabapentin (Gabapentin) 600 Mg Tablet, 1,200 MG PO TID, (Reported) Entered as Reported by: ALVIN GARVEY on 01/16/16 0821 Hydroxychloroquine Sulfate (Hydroxychloroquine Sulfate) 200 Mg Tablet, 200 MG PO BID, (Reported) Entered as Reported by: ALVIN GARVEY on 10/20/18 1034 Lisinopril (Lisinopril) 40 Mg Tablet, 40 MG PO HS, (Reported) Entered as Reported by: ALVIN GARVEY on 10/20/18 1034 Metoprolol Succinate (Metoprolol Succinate) 200 Mg Tab.er.24h, 200 MG PO DAILY, (Reported) Entered as Reported by: ALVIN GARVEY on 10/20/18 1034 Nitroglycerin (Nitroglycerin) 0.4 Mg Tab.subl, 0.4 MG SL UD PRN for CHEST PAIN, (Reported) Entered as Reported by: ANNE CURTIS on 01/10/19 0834 Potassium Chloride (K-Tab ER) 20 Meq Tablet.er, 20 MEQ PO DAILY, (Reported) Entered as Reported by: ALVIN GARVEY on 10/20/18 1034 Simvastatin (Simvastatin) 20 Mg Tablet, 20 MG PO HS, (Reported) Entered as Reported by: ALVIN GARVEY on 01/16/16 0821 Sulfasalazine (Azulfidine) 500 Mg Tablet, 1,500 MG PO BID, (Reported) Entered as Reported by: ALVIN GARVEY on 10/20/18 1034 Trazodone HCl (Trazodone HCl) 100 Mg Tablet, 100 MG PO HS PRN for SLEEP, (Reported) Entered as Reported by: ALVIN GARVEY on 10/20/18 1034 Review of Systems Review of Systems Constitutional: No chills, No diaphoresis Eyes: Denies Blindness, Denies Blurred Vision, Denies Drainage Ears, Nose, Mouth, Throat: denies ear pain, denies ear discharge Respiratory: cough; No orthopnea, No phlegm, No short of breath Cardiovascular: No chest pain, No palpitations, No syncope Gastrointestinal: No abdominal pain, No constipation, No diarrhea, No nausea, No vomiting Genitourinary: No discharge, No dysuria Musculoskeletal: No back pain, No joint pain Psychiatric/Neurological: Denies Anxiety, Denies Depressed All Other Systems Reviewed Negative Unless Noted: Yes Past Hqddhil-Vlpewx-Hiuvnp Hx Patient Social History Tobacco Use?: No Substance use?: No Immunizations Up To Date Tetanus Booster (TDap): Less than 5yrs PED Vaccines UTD: No Seasonal Allergies Seasonal Allergies: No Past Medical History Surgeries: Yes (ANGIOPLASTY) Adenoidectomy, Appendectomy, Cardiac, Coronary Stent, Gallbladder, Orthopedic, Tonsillectomy Respiratory: No Cardiac: Yes (CARDIAC STENT X4, ANGIOPLASTY X 2; CAROTID DISEASE) Coronary Artery Disease, High Cholesterol, Hypertension Neurological: No Reproductive Disorders: Yes (unable to have children) [employer] History: Menopausal UTI-Chronic Gastrointestinal: Yes (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) Colitis, Irritable Bowel Musculoskeletal: Yes (CHRONIC GENREALIZED PAIN; MULTIPLE ORTHO PROCEDURES ON HANDS) Arthritis, Fibromyalgia, Fractures Endocrine: No Hearing Impairment: Hard of Hearing Cancer: No Psychosocial: Yes Anxiety, Bipolar, Depression Integumentary: No Blood Disorders: No Adverse Reaction/Blood Tranf: No Family Medical History Arthritis 19 MOTHER G8 SISTER Cardiovascular disease 19 MOTHER G8 BROTHER G8 BROTHER Cirhosis of liver G8 SISTER Kidney disease G8 SISTER Ms No Pertinent Family Hx Physical Exam Vital Signs Vital Signs - First Documented 08/02/21 20:21 Temp 37.0 Pulse 96 Resp 20 B/P (MAP) 147/57 (87) Pulse Ox 100 O2 Delivery Room Air Capillary Refill : Less Than 3 Seconds Height, Weight, BMI Height: 5'6.00" Weight: 175lbs. 0.0oz. 79.895340bv; 32.00 BMI Method:Stated General Appearance: WD/WN, mild distress HEENT: PERRL/EOMI, normal ENT inspection, TMs normal; No pharynx normal (Oral m ucosa is dry) Neck: full range of motion, supple, normal inspection Respiratory: lungs clear, normal breath sounds, no respiratory distress, no accessory muscle use Cardiovascular: normal peripheral pulses, regular rate, rhythm Peripheral Pulses: 2+ Radial Pulses (R), 2+ Radial Pulses (L) Gastrointestinal: normal bowel sounds, non tender, soft Extremities: normal range of motion, non-tender, normal inspection, normal capillary refill Neurologic/Psychiatric: alert, normal mood/affect, other (Originally thought she was at [place] but otherwise oriented to self time and date of . She is very slow to answer and has to ponder her answers for about a minute before she can answer them.) Crainal Nerves: normal hearing, PERRL; No abnormal eye position; abnormal speech (Slowed georgiana) Coordination/Gait: normal finger to nose Motor/Sensory: no motor deficit, no sensory deficit, no pronator drift Skin: normal color, warm/dry, ecchymosis (Bilateral knees) Stroke Onset of Symptoms Date of Onset of Symptoms: Aug 02, 2021 Symptoms onset unknown: Yes NIH Stroke Scale Assessment Select: Initial Level of Consciousness: 0=Alert (0), Level of Consciousness- Questions: 0=Answers both month/age (0), LOC Commands: 0=Performs both tasks (0), Gaze: Normal (0), Visual Mccoy: 0=No visual loss (0), Facial Movement (Facial Paresis): 1=Minor paralysis Very subtle around the left edge of the lips (1), Motor Function-Arms Right: 0=No drift (0), Motor Function-Arms Left: 0=No drift (0), Motor Function-Legs Right: 0=No drift (0), Motor Function-Legs Left: 0=No drift (0), Limb Ataxia: 0=Absent (0), Sensory: 0=Normal:no loss (0), Best Language: 0=No aphasia (0), Dysarthria: 0=Normal (0), Extinction & Inattention: 0=No abnormality (0), Total: 1 Stroke Thrombolytic Exclusion Age 18 or Over: Yes Acute intenal hemorrhage: No History of CVA: No Uncontrolled Coagulation Defec: No Intracranial Hemorrhage: No Severe Hypertension: No GI or Bleed: No Subarachnoid Hemorrhage: No Intracranial Neoplasm/Aneurysm: No Oral Anticoagulants: No Surgery or Trauma: No Puncture of Non-Compressible V: No Recent CPR: No Diabetic Hemorrhagic Retinopat: No Organ Biopsy: No Recent Obstetric Delivery: No Glucose: No (120s) Significant Hepatic Dysfunctio: No NIH Stoke Scale >22: No Bacterial Endocarditis: No Pericarditis: No Improving Symptoms: No Platelets: No TPA Contraindication: No IV - TPa Received IV - TPa Procedure Performed?: No (Unknown last well time and risk outweighs benefits. ) Focused Exam Sepsis Stage: Sepsis Possible Source: Genitouriary Lactate Level 08/02/21 20:25: Lactic Acid Level 1.43 Time of Focused Exam: 22:16 Respiratory: Lungs Clear, Normal Breath Sounds, No Accessory Muscle Use, No Respiratory Distress Cardiovascular: Regular Rate, Rhythm, No Edema, Normal Peripheral Pulses Capillary Refill: Less Than 3 Seconds Peripheral Pulses: 2+ Radial Pulses (R), 2+ Radial Pulses (L) Skin: normal color, warm/dry Lactic Acid Level Laboratory Tests Test 08/02/21 20:25 Lactic Acid Level 1.43 MMOL/L (0.50-2.00) Within 3hrs of presentation: Admin fluids, Admin ABX, Blood cultures prior to ABX's, Focus exam, Lactate level Progress/Results/Core Measures Results/Orders Lab Results Laboratory Tests Test 08/02/21 20:25 08/02/21 20:32 08/02/21 20:33 08/02/21 20:36 Range/Units White Blood Count 18.3 H 4.3-11.0 10^3/uL Red Blood Count 2.99 L 3.80-5.11 10^6/uL Hemoglobin 9.5 L 11.5-16.0 g/dL Hematocrit 28 L 35-52 % Mean Corpuscular Volume 94 80-99 fL Mean Corpuscular Hemoglobin 32 25-34 pg Mean Corpuscular Hemoglobin Concent 34 32-36 g/dL Red Cell Distribution Width 12.5 10.0-14.5 % Platelet Count 225 130-400 10^3/uL Mean Platelet Volume 9.9 9.0-12.2 fL Immature Granulocyte % (Auto) 1 % Neutrophils (%) (Auto) 85 H 42-75 % Lymphocytes (%) (Auto) 3 L 12-44 % Monocytes (%) (Auto) 11 0-12 % Eosinophils (%) (Auto) 0 0-10 % Basophils (%) (Auto) 0 0-10 % Neutrophils # (Auto) 15.5 H 1.8-7.8 10^3/uL Lymphocytes # (Auto) 0.6 L 1.0-4.0 10^3/uL Monocytes # (Auto) 2.0 H 0.0-1.0 10^3/uL Eosinophils # (Auto) 0.0 0.0-0.3 10^3/uL Basophils # (Auto) 0.0 0.0-0.1 10^3/uL Immature Granulocyte # (Auto) 0.2 H 0.0-0.1 10^3/uL Neutrophils % (Manual) 88 % Lymphocytes % (Manual) 4 % Monocytes % (Manual) 8 % Blood Morphology Comment NORMAL Prothrombin Time 18.2 H 12.2-14.7 SEC INR Comment 1.5 H 0.8-1.4 Activated Partial Thromboplast Time 36 H 24-35 SEC D-Dimer 1.92 H 0.00-0.49 UG/ML Sodium Level 131 L 135-145 MMOL/L Potassium Level 3.7 3.6-5.0 MMOL/L Chloride Level 96 L 98-107 MMOL/L Carbon Dioxide Level 19 L 21-32 MMOL/L Anion Gap 16 H 5-14 MMOL/L Blood Urea Nitrogen 19 H 7-18 MG/DL Creatinine 1.36 H 0.60-1.30 MG/DL Estimat Glomerular Filtration Rate 42 BUN/Creatinine Ratio 14 Glucose Level 118 H 70-105 MG/DL Lactic Acid Level 1.43 0.50-2.00 MMOL/L Calcium Level 9.0 8.5-10.1 MG/DL Corrected Calcium 9.4 8.5-10.1 MG/DL Total Bilirubin 1.8 H 0.1-1.0 MG/DL Aspartate Amino Transf (AST/SGOT) 45 H 5-34 U/L Alanine Aminotransferase (ALT/SGPT) 27 0-55 U/L Alkaline Phosphatase 87 40-136 U/L Troponin I < 0.028 <0.028 NG/ML C-Reactive Protein High Sensitivity 21.87 H 0.00-0.50 MG/DL Total Protein 6.4 6.4-8.2 GM/DL Albumin 3.5 3.2-4.5 GM/DL Procalcitonin 0.67 H <0.10 NG/ML Serum Alcohol < 10 <10 MG/DL Influenza Type A (RT-PCR) Not Detected Not Detecte Influenza Type B (RT-PCR) Not Detected Not Detecte SARS-CoV-2 RNA (RT-PCR) Not Detected Not Detecte Urine Color HARSH H Urine Clarity CLEAR Urine pH 5.5 5-9 Urine Specific [place] 1.025 H 1.016-1.022 Urine Protein 2+ H NEGATIVE Urine Glucose (UA) NEGATIVE NEGATIVE Urine Ketones TRACE H NEGATIVE Urine Nitrite NEGATIVE NEGATIVE Urine Bilirubin 2+ H NEGATIVE Urine Urobilinogen 0.2 < = 1.0 MG/DL Urine Leukocyte Esterase 3+ H NEGATIVE Urine RBC (Auto) 3+ H NEGATIVE Urine RBC 2-5 H /HPF Urine WBC 25-50 H /HPF Urine Squamous Epithelial Cells NONE /HPF Urine Renal Epithelial Cells NONE /HPF Urine Crystals NONE /LPF Urine Bacteria LARGE H /HPF Urine Casts NONE /LPF Urine Mucus NEGATIVE /LPF Urine Culture Indicated CULTURE PENDING Urine Opiates Screen NEGATIVE NEGATIVE Urine Oxycodone Screen NEGATIVE NEGATIVE Urine Methadone Screen NEGATIVE NEGATIVE Urine Propoxyphene Screen NEGATIVE NEGATIVE Urine Barbiturates Screen NEGATIVE NEGATIVE Ur Tricyclic Antidepressants Screen NEGATIVE NEGATIVE Urine Phencyclidine Screen NEGATIVE NEGATIVE Urine Amphetamines Screen NEGATIVE NEGATIVE Urine Methamphetamines Screen NEGATIVE NEGATIVE Urine Benzodiazepines Screen NEGATIVE NEGATIVE Urine Cocaine Screen NEGATIVE NEGATIVE Urine Cannabinoids Screen NEGATIVE NEGATIVE Glucometer 113 H 70-110 MG/DL Test 08/02/21 21:00 Range/Units Blood Gas Puncture Site LEFT RADIAL Blood Gas Patient Temperature 37.9 Arterial Blood pH 7.50 H 7.37-7.43 Arterial Blood Partial Pressure CO2 28 L 35-45 MMHG Arterial Blood Partial Pressure O2 106 H 79-93 MMHG Arterial Blood HCO3 21 L 23-27 MMOL/L Arterial Blood Total CO2 22.1 21.0-31.0 MMOL/L Arterial Blood Oxygen Saturation 98 94-100 % Arterial Blood Base Excess -1.4 -2.5-2.5 MMOL/L Surjit Test YES-POS Blood Gas Ventilator Setting NO Blood Gas Inspired Oxygen ROOM AIR My Orders Orders - RAFIQ BROWNLEE Arterial Blood Gas (08/02/21 20:58) Cbc With Automated Diff (08/02/21 20:53) Protime With Inr (08/02/21 20:53) Partial Thromboplastin Time (08/02/21 20:53) Comprehensive Metabolic Panel (08/02/21 20:53) Fibrin Degradation Products (08/02/21 20:53) Troponin I Timmy (08/02/21 20:53) Ua Culture If Indicated (08/02/21 20:53) Chest 1 View, Ap/Pa Only (08/02/21 20:53) Catheter(Urinary) Insert & Ass 03,15 (08/02/21 20:53) Ekg Tracing (08/02/21 20:53) Nothing By Mouth (08/03/21 Breakfast) Accucheck Stat ONCE (08/02/21 20:53) Ed Iv/Invasive Line Start (08/02/21 20:53) Ed Iv/Invasive Line Start (08/02/21 20:53) Vital Signs Stroke Patient Q15M (08/02/21 20:53) O2 (08/02/21 20:53) Intake & Output 06,14,22 (08/02/21 20:53) Monitor-Rhythm Ecg Trace Only (08/02/21:53) Dysphagia Screening Tool [id number] (08/02/21 20:53) Lipid Panel (08/03/21 06:00) Blood Culture (08/02/21 20:53) Sputum Culture (08/02/21:53) Urine Culture (08/02/21 20:53) Ed Iv/Invasive Line Start (08/02/21 20:53) Ed Iv/Invasive Line Start (08/02/21 20:53) Vital Signs Adult Sepsis Patie Q15M (08/02/21 20:53) Remove Rings In Anticipation O (08/02/21 20:53) Lactic Acid Analyzer (08/02/21 20:53) Influenza A And B By Pcr (08/02/21 20:53) Ns Iv 1000 Ml (Sodium Chloride 0.9%) (08/02/21 21:00) Cefepime Injection (Maxipime Injection) (08/02/21 21:00) Meropenem (Merrem 1000 Mg) (08/02/21 21:00) Covid 19 Inhouse Test (08/02/21 20:53) Hs C Reactive Protein (08/02/21 20:53) Procalcitonin (Pct) (08/02/21 20:53) Ed Iv/Invasive Line Start (08/02/21 20:53) Ns Iv 1000 Ml (Sodium Chloride 0.9%) (08/02/21 21:00) Drug Screen Stat (Urine) (08/02/21 20:53) Alcohol (08/02/21 20:53) Manual Differential (08/02/21 20:25) Arterial Blood Draw - Obtain (08/02/21 ) Urine Culture (08/02/21 20:33) Ammonia (08/02/21 22:12) Medications Given in ED Current Medications Medications Dose Ordered Sig/Demario Route Start Time Stop Time Status Last Admin Dose Admin Cefepime HCl 1000 mg/Sodium Chloride 50 ml @ 100 mls/hr ONCE ONCE IV 08/02/21 21:00 08/02/21 21:29 DC 08/02/21 21:16 100 MLS/HR Meropenem 1000 mg/ Sodium Chloride 100 ml @ 200 mls/hr ONCE ONCE IV 08/02/21 21:00 08/02/21 21:29 DC 08/02/21 21:54 200 MLS/HR Vital Signs/I&O 08/02/21 20:21 Temp 37.0 Pulse 96 Resp 20 B/P (MAP) 147/57 (87) Pulse Ox 100 O2 Delivery Room Air Blood Pressure Mean: 87 FSBG Bedside Testing Finger Stick Blood Glucose: 113 Blood Glucose Action Taken: RN NOTIFIED Progress Progress Note #1: Time: :17 Progress Note She is on some medications which could worsen her delirium but she appears encephalopathic with may be a subtle facial droop however the thinks that she looks like normal. She does not score out very high on NIH. She has an elevated white count also a concern for delirium secondary to infection seems more likely. We will consider the possibility of an overdose and get a drug screen and alcohol level as well. 20 mL/kg would be 2 L of fluid and will cover her with a cephalosporin and meropenem since she has a listed history of telavancin reaction. Leyva catheter placed up and get a good clean specimen. Patient is a very difficult historian and states she is quite frustrated trying to think. Initial blood sugar was okay. EKG is unremarkable except she is borderline tachycardic and CT does not reveal any bleed or acute pathology. Progress Note #2: Time: :28 Progress Note Discussed the case with Dr. Gomez, stroke neurologist on-call at [facility] and she agrees with delirium. At this time her urinalysis is come back positive for UTI she has a elevated white count and appear septic so we are pursuing a septic work-up with fluids broad-spectrum antibiotics and we will put her upstairs in the hospital. The risks certainly do not become overshadowed by the benefits given the low scoring on NIH and her very insignificant neurologic deficits. Dr. Gomez recommends against TPA for this reason even if there was an underlying stroke. Initial ECG Impression Date: Aug 02, 2021 Initial ECG Impression Time: 20:29 Initial ECG Rate: 97 Initial ECG Rhythm: Normal Sinus Initial ECG Intervals: Normal Initial ECG Impression: Normal Initial ECG Comparisson: Unchanged Comment Normal sinus rhythm without clinically relevant ST elevation or depression Diagnostic Imaging Diagonstic Imaging: Xray Plain Films/CT/US/NM/MRI: chest Comments [facility] [place] NAME: [facility] REC#: [id number] PT STATUS: REG ER : 1950 PHYSICIAN: RAFIQ BROWNLEE MD ADMIT DATE: 08/02/21/ER Draft Date of Exam:08/02/21 CHEST 1 VIEW, AP/PA ONLY PATIENT HISTORY: delirium. Altered mental status TECHNIQUE: Single frontal view of the chest. COMPARISON: 03/19/2020 FINDINGS: The lung volumes are normal. No focal consolidation is seen. No large pleural effusion or pneumothorax is seen. The cardiomediastinal silhouette is normal in size and contour. No acute osseous abnormality is seen. IMPRESSION: No acute pulmonary abnormality seen. Dictated on workstation # [id number] Dict: 08/02/212109 Trans: 08/02/212111 [facility] [id number] Interpreted by: TAYLER SALAZAR MD Electronically signed by: Reviewed: Reviewed by Me Diagonstic Imaging: CT Plain Films/CT/US/NM/MRI: head Comments [facility] [place] NAME: LILI BE [facility] REC#: [id number] PT STATUS: REG ER : 1950 PHYSICIAN: IAN PULIDO ADMIT DATE: 08/02/21/ER Draft Date of Exam:08/02/21 CT HEAD WO-R/O STROKE PROCEDURE: CT head wo r/o stroke. TECHNIQUE: Multiple contiguous axial images were obtained through the brain without the use of intravenous contrast. Auto Exposure Controls were utilized during the CT exam to meet ALARA standards for radiation dose reduction. INDICATION: Neurological deficit. Altered mental status, facial droop COMPARISON: 10/24/2018 FINDINGS: The ventricles and cortical sulci are age-appropriate. There is no midline shift or significant mass effect. No acute intracranial hemorrhage is seen. There are scattered areas of hypoattenuation in the white matter which are likely from chronic microvascular disease. There is no CT evidence of acute territorial ischemia. The calvarium appears intact. Visualized nasal sinuses appear clear. IMPRESSION: 1. No acute intracranial hemorrhage or CT evidence of acute territorial ischemia. Findings discussed with Dr. Brownlee by Dr. Salazar, on 08/02/2021 8:53 PM. Dictated on workstation # [id number] Dict: 08/02/212050 Trans: 08/02/212102 [facility] [id number] Interpreted by: TAYLER SALAZAR MD Electronically signed by: Reviewed: Reviewed by Me Departure Communication (Admissions) Time/Spoke to Admitting Phy: 22:10 Discussed the case with Dr. Cooper who agrees to admit the patient to the cardiac stepdown on cefepime and fluids. She will put in queued order Impression Primary Impression: Urinary tract infection Qualified Codes: N30.01 - Acute cystitis with hematuria Additional Impressions: Sepsis Qualified Codes: A41.9 - Sepsis, unspecified organism; R65.20 - Severe sepsis without septic shock; G93.40 - Encephalopathy, unspecified Delirium Disposition: ADMITTED INPATIENT Condition: Stable Admissions Decision to Admit Reason: Admit from ER (General) Decision to Admit/Date: Aug 02, 2021 Time/Decision to Admit Time: 22:10 Departure-Patient Inst. Referrals: SUZE COOPER DO (PCP/Family) Primary Care Physician RAFIQ BROWNLEE Aug 02, 2021 21:18
[2021-08-02 21:20] LABS: ALKALINE PHOSPHATASE 87 U/L (40-136)
[2021-08-02 21:21] LABS: CREATININE SERUM 1.36 MG/DL (0.60-1.30); GFR ESTIMATED 42
[2021-08-02 21:22] LABS: BACTERIA,URINE LARGE /HPF; BILIRUBIN,URINE 2+ (NEGATIVE); WBC,URINE 25-50 /HPF
[2021-08-02 21:22] LABS: BUN/CREATININE RATIO 14
[2021-08-02 21:23] LABS: ALANINE AMINOTRANSFERASE 27 U/L (0-55)
[2021-08-02 21:26] LABS: AMPHETAMINE SCREEN, URINE NEGATIVE (NEGATIVE); BARBITURATE SCREEN URINE NEGATIVE (NEGATIVE); BENZODIAZEPINES SCREEN URINE NEGATIVE (NEGATIVE); CANNABINOID SCREEN, URINE NEGATIVE (NEGATIVE); COCAINE SCREEN URINE NEGATIVE (NEGATIVE); METHADONE STAT NEGATIVE (NEGATIVE); METHAMPHETAMINE SCREEN URINE S NEGATIVE (NEGATIVE); OPIATE SCREEN URINE NEGATIVE (NEGATIVE); OXYCODONE STAT NEGATIVE (NEGATIVE); PROPOXYPHENE STAT NEGATIVE (NEGATIVE); TRICYCLIC ANTIDEPRESSANTS SCRE NEGATIVE (NEGATIVE)
[2021-08-02 21:30] LABS: LYMPHOCYTES % (MANUAL) 4 %; MONOCYTES % (MANUAL) 8 %; NEUTROPHILS % (MANUAL) 88 %; RBC MORPH NORMAL
[2021-08-02] MEDS ORDERED: ACETAMINOPHEN 500 MG TAB (TYLENOL) PO ONE (22:30)
[2021-08-02 23:30] VITALS: BP 170/104
[2021-08-02 23:35] VITALS: BP 170/104
[2021-08-02] MEDS ORDERED: CALCIUM CARBONATE 500 MG (TUMS) TAB.CHEW PO PRN (23:45)
[2021-08-02] MEDS ORDERED: polyethylene glycoL POWDER 17 GM (MIRALAX) PACK PO PRN (23:45)
[2021-08-02] MEDS ORDERED: diphenhydrAMINE 25 MG TAB (BENADRYL) PO PRN (23:45)
[2021-08-02] MEDS ORDERED: diphenhydrAMINE 50 MG/ML INJ (BENADRYL) IVP PRN (23:45)
[2021-08-02] MEDS ORDERED: LACTULOSE SYRUP 10GM/15ML (ENULOSE) 30ML UDC PO PRN (23:45)
[2021-08-02] MEDS ORDERED: MELATONIN 3 MG TABLET PO PRN (23:45)
[2021-08-02] MEDS ORDERED: ANTACID SUSP 30 ML UDC (MYLANTA) PO PRN (23:45)
[2021-08-02] MEDS ORDERED: BISACODYL 10 MG SUPP (DULCOLAX) PR PRN (23:45)
[2021-08-02] MEDS ORDERED: ONDANSETRON 4 MG/2 ML (SDV) Z0FRAN IV PRN (23:45)
[2021-08-02] MEDS ORDERED: MILK OF MAGNESIA 400 MG/5 ML 30 ML UDC PO PRN (23:45)
[2021-08-02] MEDS ORDERED: ONDANSETRON 4 MG (ZOFRAN) ORAL DISSOLVE TAB PO PRN (23:45)
[2021-08-02] MEDS ORDERED: cloNIDine 0.1 MG (CATAPRES) TAB PO PRN (23:45)
[2021-08-03] VITALS (16 sets, daily range): BP systolic 129–184; BP diastolic 49–107
[2021-08-03] MEDS: LORazepam INJ 2 MG/ML (ATIVAN) VIAL IVP PRN (00:18)
[2021-08-03] MEDS ORDERED: LABETALOL HCL 20 MG/4 ML VIAL IV ONE (00:45)
[2021-08-03] MEDS ORDERED: LABETALOL HCL 20 MG/4 ML VIAL ONE (00:48)
[2021-08-03 05:27] LABS: BASOPHILS # (AUTO) 0.1 10^3/uL (0.0-0.1); BASOPHILS % (AUTO) 0 % (0-10); EOSINOPHILS % (AUTO) 0 % (0-10); HEMATOCRIT 26 % (35-52); HEMOGLOBIN 8.6 g/dL (11.5-16.0); LYMPHOCYTES # (AUTO) 0.5 10^3/uL (1.0-4.0); LYMPHOCYTES % (AUTO) 2 % (12-44); MEAN CORPUSCULAR HEMOGLOBIN 32 pg (25-34); MEAN CORPUSCULAR HGB CONC 33 g/dL (32-36); MEAN CORPUSCULAR VOLUME 96 fL (80-99); MEAN PLATELET VOLUME 9.9 fL (9.0-12.2); MONOCYTES # (AUTO) 2.3 10^3/uL (0.0-1.0); MONOCYTES % (AUTO) 10 % (0-12); NEUTROPHILS # (AUTO) 18.7 10^3/uL (1.8-7.8); NEUTROPHILS % (AUTO) 86 % (42-75); PLATELET COUNT 213 10^3/uL (130-400); WHITE BLOOD COUNT 21.8 10^3/uL (4.3-11.0)
[2021-08-03 05:53] LABS: POTASSIUM 3.6 MMOL/L (3.6-5.0)
[2021-08-03 05:54] LABS: CALCIUM 8.3 MG/DL (8.5-10.1)
[2021-08-03 05:56] LABS: TOTAL PROTEIN 5.4 GM/DL (6.4-8.2)
[2021-08-03 05:57] LABS: BILIRUBIN,TOTAL 1.7 MG/DL (0.1-1.0)
[2021-08-03 05:59] LABS: CREATININE SERUM 1.22 MG/DL (0.60-1.30)
[2021-08-03] MEDS: CEFEPIME INJECTION 1,000 MG in NS (IVPB) 50 ML IV SCH ×3 (06:27→21:58)
--- NOTE | 2021-08-03 06:53 | History & Physical-Hospitalist ---
History of Present Illness Date Seen 08/03/21 Attending Physician Kaur Tee DO PCP Kaur Tee DO Referring Physician Date of Admission Aug 02, 2021 at 22:18 Home Medications & Allergies Home Medications Reviewed patient Home Medication Reconciliation performed by pharmacy medication reconciliations community service technician and/or nursing. Patients Allergies have been reviewed. Allergies Allergies Coded Allergies celecoxib (Verified Allergy, Severe, TAKES ASPIRIN AT HOME, 10/19/18) SOA penicillin G (Verified Allergy, Mild, 10/19/18) HIVES divalproex sodium (Verified Allergy, Unknown, 10/19/18) JOINT PAIN, "GUMS BECOME LOSE AROUND TEETH" meperidine (Verified Allergy, Unknown, 10/19/18) LOSES CONTROL OF HANDS AND ARMS morphine (Verified Allergy, Unknown, 10/19/18) FLU LIKE SYMPTOMS ofloxacin (Verified Allergy, Unknown, 10/19/18) TACHYCARDIA promethazine (Verified Allergy, Unknown, 05/28/08) propoxyphene (Verified Allergy, Unknown, 10/19/18) LOSES CONTROL OF HANDS AND ARMS telavancin (Unverified Adverse Reaction, Severe, 10/19/18) SUICIDAL lamotrigine (Unverified Adverse Reaction, Intermediate, BODY JERKS, 10/19/18) SUICIDAL amitriptyline (Verified Adverse Reaction, Mild, 10/19/18) LOSES CONTROL OF HANDS AND ARMS azithromycin (Verified Adverse Reaction, Mild, 10/19/18) FLU LIKE SYMPTOMS erythromycin base (Verified Adverse Reaction, Mild, 10/19/18) NAUSEA, VOMITING promethazine HCl (Unverified Adverse Reaction, Mild, 10/19/18) HALLUCINATIONS Past Qdghdkl-Xjvtjg-Flfewc Hx Patient Social History Tobacco Use?: No Substance use?: No Immunizations Up To Date Date of Influenza Vaccine: Feb 09, 2017 PED Vaccines UTD: No Date of Pneumonia Vaccine: Mar 01, 2018 Seasonal Allergies Seasonal Allergies: No Current Status Advance Directives: No Communicates: Verbally Primary Language: Mauritanian Preferred Spoken Language: Mauritanian Is interpretation needed?: No Past Medical History Surgeries: Adenoidectomy, Appendectomy, Cardiac, Coronary Stent, Gallbladder, Orthopedic, Tonsillectomy Coronary Artery Disease, High Cholesterol, Hypertension C[employer] ST[employer]PER History: Menopausal UTI-Chronic Colitis, Irritable Bowel Arthritis, Fibromyalgia, Fractures Hearing Impairment: Hard of Hearing Anxiety, Bipolar, Depression Blood Disorders: No Adverse Reaction/Blood Tranf: No Family Medical History Arthritis 19 MOTHER G8 SISTER Cardiovascular disease 19 MOTHER G8 BROTHER G8 BROTHER Cirhosis of liver G8 SISTER Kidney disease G8 SISTER Ms No Pertinent Family Hx Physical Exam Physical Exam Vital Signs Vital Signs - First Documented 08/02/21 20:21 Temp 37.0 Pulse 96 Resp 20 B/P (MAP) 147/57 (87) Pulse Ox 100 O2 Delivery Room Air Capillary Refill : Less Than 3 Seconds Height, Weight, BMI Height: 5'6.00" Weight: 175lbs. 0.0oz. 79.839339yp; 28.58 BMI Method:Stated Results Results/Procedures Labs Laboratory Tests 08/02/21 20:25 08/03/21 04:47 Patient resulted labs reviewed. Clinical Quality Measures Stroke: Date of last known well: Aug 02, 2021 Symptoms onset unknown: Yes KAUR TEE DO Aug 03, 2021 06:53
--- NOTE | 2021-08-03 06:54 | History & Physical ---
History of Present Illness HPI/Chief Complaint Chief complaint: Acute delirium with sepsis and gram-negative bacteremia History of present illness: This is a 70-year-old white female clinic patient of mine with a past medical history of hypertension and remote CAD previous stent who sees Dr. Galan on a regular basis who presented to the ER with confusional state. She returned from [place] 3 days prior was not taking her medication properly and not eating or drinking for the last 3 days. 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 Patient is currently doing a little better less confused but still not back to baseline. She does not open her eyes very often during the conversation. She reports a cough chest x-ray yesterday repeat today were negative and she does have a chronic cough which we do not have a source for. Source: patient, family, RN/MD, old records Exam Limitations: clinical condition Date Seen 08/03/21 Time Seen by a Provider: 11:30 Attending Physician Kaur Tee DO PCP Kaur Tee DO Referring Physician Date of Admission Aug 02, 2021 at 22:18 Home Medications & Allergies Home Medications Reviewed patient Home Medication Reconciliation performed by pharmacy medication reconciliations cardiac cath technician and/or nursing. Patients Allergies have been reviewed. Allergies Allergies Coded Allergies celecoxib (Verified Allergy, Severe, TAKES ASPIRIN AT HOME, 10/19/18) SOA penicillin G (Verified Allergy, Mild, 10/19/18) HIVES divalproex sodium (Verified Allergy, Unknown, 10/19/18) JOINT PAIN, "GUMS BECOME LOSE AROUND TEETH" meperidine (Verified Allergy, Unknown, 10/19/18) LOSES CONTROL OF HANDS AND ARMS morphine (Verified Allergy, Unknown, 10/19/18) FLU LIKE SYMPTOMS ofloxacin (Verified Allergy, Unknown, 10/19/18) TACHYCARDIA promethazine (Verified Allergy, Unknown, 05/28/08) propoxyphene (Verified Allergy, Unknown, 10/19/18) LOSES CONTROL OF HANDS AND ARMS telavancin (Unverified Adverse Reaction, Severe, 10/19/18) SUICIDAL lamotrigine (Unverified Adverse Reaction, Intermediate, BODY JERKS, 10/19/18) SUICIDAL amitriptyline (Verified Adverse Reaction, Mild, 10/19/18) LOSES CONTROL OF HANDS AND ARMS azithromycin (Verified Adverse Reaction, Mild, 10/19/18) FLU LIKE SYMPTOMS erythromycin base (Verified Adverse Reaction, Mild, 10/19/18) NAUSEA, VOMITING promethazine HCl (Unverified Adverse Reaction, Mild, 10/19/18) HALLUCINATIONS Past Djagyhe-Sfumsv-Bftnes Hx Past Med/Social Hx: Reviewed Nursing Past Med/Soc Hx, Reviewed and Corrections made Patient Social History Marrital Status: Employed/Student: retired Alcohol Use: Denies Use Smoking Status: Never a Smoker 2nd Hand Smoke Exposure: No Recent Hopitalizations: No Immunizations Up To Date Tetanus Booster (TDap): Less than 5yrs Pediatric: No Date of Pneumonia Vaccine: Mar 01, 2018 Date of Influenza Vaccine: Feb 09, 2017 Seasonal Allergies Seasonal Allergies: No Past Medical History Surgeries: Adenoidectomy, Appendectomy, Cardiac, Coronary Stent, Gallbladder, Orthopedic, Tonsillectomy Cardiac: Coronary Artery Disease, High Cholesterol, Hypertension Reproductive: Yes (unable to have children) Menopausal Genitourinary: UTI-Chronic Gastrointestinal: Colitis, Irritable Bowel Musculoskeletal: Arthritis, Fibromyalgia, Fractures Hearing Impairment: Hard of Hearing Psychosocial: Anxiety, Bipolar, Depression History of Blood Disorders: No Adverse Reaction to Blood Callahan: No Family History Arthritis 19 MOTHER G8 SISTER Cardiovascular disease 19 MOTHER G8 BROTHER G8 BROTHER Cirhosis of liver G8 SISTER Kidney disease G8 SISTER Ms No Pertinent Family Hx Review of Systems ROS-Unable to Obtain: Confusion Constitutional: see HPI, dizziness, fever, malaise, weakness EENTM: no symptoms reported Respiratory: cough Physical Exam Physical Exam Vital Signs Vital Signs - First Documented 08/02/21 20:21 Temp 37.0 Pulse 96 Resp 20 B/P (MAP) 147/57 (87) Pulse Ox 100 O2 Delivery Room Air Capillary Refill : Less Than 3 Seconds Height, Weight, BMI Height: 5'6.00" Weight: 175lbs. 0.0oz. 79.748432uq; 28.58 BMI Method:Stated General Appearance: WD/WN, Anxious, Chronically ill, Mild Distress Eyes: Bilateral Eye Normal Inspection, Bilateral Eye PERRL HEENT: PERRL/EOMI, Normal ENT Inspection, Pharynx Normal Neck: Full Range of Motion, Normal Inspection, Non Tender, Supple, Carotid Bruit Respiratory: Lungs Clear, Normal Breath Sounds, No Accessory Muscle Use, No Respiratory Distress Cardiovascular: Regular Rate, Rhythm, No Edema, Normal Peripheral Pulses Gastrointestinal: Normal Bowel Sounds, No Organomegaly, No Pulsatile Mass, Non Tender, Soft Back: Normal Inspection, No CVA Tenderness, No Vertebral Tenderness Extremity: Normal Capillary Refill, Normal Inspection, Normal Range of Motion, Non Tender, No Calf Tenderness, No Pedal Edema Neurologic/Psychiatric: Alert, No Motor/Sensory Deficits, Normal Mood/Affect, Depressed Affect, Disoriented Skin: Normal Color, Warm/Dry Lymphatic: No Adenopathy Results Results/Procedures Labs Laboratory Tests 08/02/21 20:25 08/03/21 04:47 Patient resulted labs reviewed. 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 Galan Hypertension malignant type Hyperlipidemia Chronic cough Plan: Supportive care Consult cardiology Volume repletion Antibiotics DVT prophylaxis Admission Status: Inpatient Order (span 2 midnights) Reason for Inpatient Admission: Sepsis Diagnosis/Problems Diagnosis/Problems (1) Sepsis Qualifiers: Sepsis type: sepsis due to unspecified organism Sepsis acute organ dysfunction status: with acute organ dysfunction Severe sepsis acute organ dysfunction type: encephalopathy Severe sepsis shock status: without septic shock Qualified Codes: A41.9 - Sepsis, unspecified organism; R65.20 - Severe sepsis without septic shock; G93.40 - Encephalopathy, unspecified (2) Delirium Status: Acute (3) Urinary tract infection Status: Acute Qualifiers: Urinary tract infection type: acute cystitis Hematuria presence: with hematuria Qualified Codes: N30.01 - Acute cystitis with hematuria (4) HTN (hypertension) (5) Chronic kidney disease, stage 3 (6) Primary hypertension (7) CAD (coronary artery disease) Status: Chronic Clinical Quality Measures Stroke: Date of last known well: Aug 02, 2021 Symptoms onset unknown: Yes KAUR TEE DO Aug 03, 2021 06:54
[2021-08-03] MEDS: DOCUSATE SODIUM 100 MG (COLACE) CAP PO SCH ×2 (09:10→21:07)
[2021-08-03] MEDS: FAMOTIDINE 20 MG (PEPCID) TABLET PO SCH (09:10)
[2021-08-03] MEDS: SENNOSIDES 8.6 MG (SENOKOT) TAB PO SCH ×2 (09:10→21:07)
[2021-08-03] MEDS: ENOXAPARIN 40 MG/0.4 ML (LOVENOX) SYR SC SCH (09:50)
[2021-08-03] MEDS ORDERED: NS IV 1000 ML 1,000 ML IV SCH ×2 (12:00→19:00)
--- NOTE | 2021-08-03 12:08 | Diagnostic Imaging Report ---
INDICATION: Dyspnea and chest tightness. EXAMINATION: Chest 08/03/2021. COMPARISON: 08/02/2021. FINDINGS: The cardiomediastinal silhouette is unremarkable. The pulmonary vasculature is within normal limits. The lungs and pleural spaces are clear. IMPRESSION: No evidence of an acute cardiopulmonary process. Dictated by: Dictated on workstation # [id number]
[2021-08-03] MEDS: NS IV 1000 ML 1,000 ML IV SCH ×2 (14:05→21:56)
--- NOTE | 2021-08-03 15:43 | Consultation-Cardiology ---
HPI-Cardiology Cardiology Consultation: Date of Consultation 08/03/21 Date of Admission 08/02/21 Attending Physician Kaur Tee DO Admitting Physician Kaur Tee DO Consulting Physician ELMER KENNEY JR, MD HPI: Time Seen by a Provider: 15:39 Chief Complaint: Reason for consultation: Persistent tachycardia. I had the pleasure of seeing Margarette in the intensive care unit at [facility] in [place], [place] this afternoon. She has known history of coronary artery disease with previous coronary stents. She normally follows with one of my partners, Dr. Galan. Yesterday she was brought to the emergency room by her due to confusion. She was found to have a urinary tract infection with probable sepsis accompanied by delirium and she was admitted to the intensive care unit. Overnight, she has had persistent sinus tachycardia and as such, a cardiology consultation was requested. When I saw the patient she was still quite confused. She was oriented to person only. She denied chest discomfort, dyspnea, paroxysmal nocturnal dyspnea, orthopnea, palpitations, lightheadedness, or syncope. She has mild bilateral ankle edema. However, due to her confusion, her answers may not be reliable. I did also review the electronic medical record and spoke to her nurse. Certain portions of this document may have been dictated utilizing voice recognition technology. Inherent to this technology, typographical and grammatical errors may exist. As much as I am diligent to identify and correct these mistakes, some errors may remain in the document. Review of Systems-Cardiology Review of Systems Other comments Not obtainable due to patient's confusion. All Other Systems Reviewed Negative Unless Noted: Yes [id number] Patient Social History Marrital Status: 2nd Hand Smoke Exposure: No Have you traveled recently?: No Immunizations Up To Date Tetanus Booster (TDap): Less than 5yrs Date of Pneumonia Vaccine: Mar 01, 2018 Date of Influenza Vaccine: Feb 09, 2017 Past Medical History PMH As described under Assessment. Family Medical History Family Medical History: Mother had cor stents in her 70s and stroke at age 78 2 brothers with CAD, diagnosed in their 50s Family History: Arthritis 19 MOTHER G8 SISTER Cardiovascular disease 19 MOTHER G8 BROTHER G8 BROTHER Cirhosis of liver G8 SISTER Kidney disease G8 SISTER Ms Allergies and Home Medications Allergies Coded Allergies: celecoxib (Verified Allergy, Severe, TAKES ASPIRIN AT HOME, 10/19/18) SOA penicillin G (Verified Allergy, Mild, 10/19/18) HIVES divalproex sodium (Verified Allergy, Unknown, 10/19/18) JOINT PAIN, "GUMS BECOME LOSE AROUND TEETH" meperidine (Verified Allergy, Unknown, 10/19/18) LOSES CONTROL OF HANDS AND ARMS morphine (Verified Allergy, Unknown, 10/19/18) FLU LIKE SYMPTOMS ofloxacin (Verified Allergy, Unknown, 10/19/18) TACHYCARDIA promethazine (Verified Allergy, Unknown, 05/28/08) propoxyphene (Verified Allergy, Unknown, 10/19/18) LOSES CONTROL OF HANDS AND ARMS telavancin (Unverified Adverse Reaction, Severe, 10/19/18) SUICIDAL lamotrigine (Unverified Adverse Reaction, Intermediate, B[place], ) SUICIDAL amitriptyline (Verified Adverse Reaction, Mild, 10/19/18) LOSES CONTROL OF HANDS AND ARMS azithromycin (Verified Adverse Reaction, Mild, 10/19/18) FLU LIKE SYMPTOMS erythromycin base (Verified Adverse Reaction, Mild, 10/19/18) NAUSEA, VOMITING promethazine HCl (Unverified Adverse Reaction, Mild, 10/19/18) HALLUCINATIONS Patient Home Medication List Home Medication List Reviewed: Yes Alprazolam (Xanax) 1 Mg Tablet, 1 MG PO TID PRN, (Reported) Entered as Reported by: ANNE CURTIS on 01/10/19 0834 Aspirin (Aspirin) 81 Mg Tab.chew, 81 MG PO BID, (Reported) Entered as Reported by: ALVIN GARVEY on 10/20/18 1034 Baclofen (Baclofen) 10 Mg Tablet, 20 MG PO TID, (Reported) Entered as Reported by: ALVIN GARVEY on 01/16/16 0838 Bisoprolol Fumarate/Hctz (Bisoprolol-Hctz 10-6.25 mg Tab) 1 Each Tablet, 1 EACH PO HS, (Reported) Entered as Reported by: ANNE CURTIS on 01/10/19 0834 Citalopram Hydrobromide (Celexa) 40 Mg Tablet, 40 MG PO DAILY, (Reported) Entered as Reported by: ALVIN GARVEY on 10/20/18 1034 Colestipol HCl (Colestipol HCl) 1 Gm Tablet, 1 GM PO BID, (Reported) Entered as Reported by: JUAN BONNER on 05/22/17 1453 Dicyclomine HCl (Dicyclomine HCl) 20 Mg Tablet, 40 MG PO BID, (Reported) Entered as Reported by: ALVIN GARVEY on 10/20/18 1034 Doxycycline Hyclate (Doxycycline Hyclate) 100 Mg Tablet, 100 MG PO BID WITH MEALS Prescribed by: LINDSAY GRACIA on 10/24/18 1347 Furosemide (Furosemide) 40 Mg Tablet, 40 MG PO DAILY, (Reported) Entered as Reported by: ALVIN GARVEY on 10/20/18 1034 Gabapentin (Gabapentin) 600 Mg Tablet, 1,200 MG PO TID, (Reported) Entered as Reported by: ALVIN GARVEY on 01/16/16 0821 Hydroxychloroquine Sulfate (Hydroxychloroquine Sulfate) 200 Mg Tablet, 200 MG PO BID, (Reported) Entered as Reported by: ALVIN GARVEY on 10/20/18 1034 Lisinopril (Lisinopril) 40 Mg Tablet, 40 MG PO HS, (Reported) Entered as Reported by: ALVIN GARVEY on 10/20/18 1034 Metoprolol Succinate (Metoprolol Succinate) 200 Mg Tab.er.24h, 200 MG PO DAILY, (Reported) Entered as Reported by: ALVIN GARVEY on 10/20/18 1034 Nitroglycerin (Nitroglycerin) 0.4 Mg Tab.subl, 0.4 MG SL UD PRN for CHEST PAIN, (Reported) Entered as Reported by: ANNE CURTIS on 01/10/19 0834 Potassium Chloride (K-Tab ER) 20 Meq Tablet.er, 20 MEQ PO DAILY, (Reported) Entered as Reported by: ALVIN GARVEY on 10/20/18 1034 Simvastatin (Simvastatin) 20 Mg Tablet, 20 MG PO HS, (Reported) Entered as Reported by: ALVIN GARVEY on 01/16/16 0821 Sulfasalazine (Azulfidine) 500 Mg Tablet, 1,500 MG PO BID, (Reported) Entered as Reported by: ALVIN GARVEY on 10/20/18 1034 Trazodone HCl (Trazodone HCl) 100 Mg Tablet, 100 MG PO HS PRN for SLEEP, (Reported) Entered as Reported by: ALVIN GARVEY on 10/20/18 1034 Exam Vital Signs Vital Signs Date Time Temp Pulse Resp B/P (MAP) Pulse Ox O2 Delivery O2 Flow Rate FiO2 08/03/21 12:59 132 08/03/21 12:10 36.9 08/03/21 12:00 26 158/68 (98) 98 Room Air Physical Exam General: Alert but only oriented to person and very confused. No acute distress. Well nourished and appears stated age. Eye: Extraocular movements are intact. Conjunctivae are clear. There are no xanthelasma. HENT: Normocephalic. Atraumatic. Carotid pulsations 2/2 without bruits. Neck: Jugular venous pressure does not appear elevated. No thyromegaly appreciated. Respiratory: Lungs are clear to auscultation. Respirations are non-labored. Breath sounds are equal. Symmetrical chest wall expansion. Cardiovascular: Tachycardia. Regular rhythm. 2/6 systolic ejection murmur. No gallop. Point of maximal impulse is not appear displaced. Good pulses equal in all extremities. 1+ bilateral pretibial edema. Gastrointestinal: Soft. Normal bowel sounds. Skin: Skin turgor is normal. There is no pallor. Musculoskeletal: No kyphosis or scoliosis appreciated. Neurologic: Alert but oriented to person only. Cranial nerves 3-12 appear grossly intact. The patient has good motor tone strength in the upper and lower extremities bilaterally. Psychiatric: Confused. Labs Laboratory Tests Test 08/02/21 20:25 08/02/21 20:32 08/02/21 20:33 08/02/21 20:36 Range/Units White Blood Count 18.3 H 4.3-11.0 10^3/uL Red Blood Count 2.99 L 3.80-5.11 10^6/uL Hemoglobin 9.5 L 11.5-16.0 g/dL Hematocrit 28 L 35-52 % Mean Corpuscular Volume 94 80-99 fL Mean Corpuscular Hemoglobin 32 25-34 pg Mean Corpuscular Hemoglobin Concent 34 32-36 g/dL Red Cell Distribution Width 12.5 10.0-14.5 % Platelet Count 225 130-400 10^3/uL Mean Platelet Volume 9.9 9.0-12.2 fL Immature Granulocyte % (Auto) 1 % Neutrophils (%) (Auto) 85 H 42-75 % Lymphocytes (%) (Auto) 3 L 12-44 % Monocytes (%) (Auto) 11 0-12 % Eosinophils (%) (Auto) 0 0-10 % Basophils (%) (Auto) 0 0-10 % Neutrophils # (Auto) 15.5 H 1.8-7.8 10^3/uL Lymphocytes # (Auto) 0.6 L 1.0-4.0 10^3/uL Monocytes # (Auto) 2.0 H 0.0-1.0 10^3/uL Eosinophils # (Auto) 0.0 0.0-0.3 10^3/uL Basophils # (Auto) 0.0 0.0-0.1 10^3/uL Immature Granulocyte # (Auto) 0.2 H 0.0-0.1 10^3/uL Neutrophils % (Manual) 88 % Lymphocytes % (Manual) 4 % Monocytes % (Manual) 8 % Blood Morphology Comment NORMAL Prothrombin Time 18.2 H 12.2-14.7 SEC INR Comment 1.5 H 0.8-1.4 Activated Partial Thromboplast Time 36 H 24-35 SEC D-Dimer 1.92 H 0.00-0.49 UG/ML Sodium Level 131 L 135-145 MMOL/L Potassium Level 3.7 3.6-5.0 MMOL/L Chloride Level 96 L 98-107 MMOL/L Carbon Dioxide Level 19 L 21-32 MMOL/L Anion Gap 16 H 5-14 MMOL/L Blood Urea Nitrogen 19 H 7-18 MG/DL Creatinine 1.36 H 0.60-1.30 MG/DL Estimat Glomerular Filtration Rate 42 BUN/Creatinine Ratio 14 Glucose Level 118 H 70-105 MG/DL Lactic Acid Level 1.43 0.50-2.00 MMOL/L Calcium Level 9.0 8.5-10.1 MG/DL Corrected Calcium 9.4 8.5-10.1 MG/DL Total Bilirubin 1.8 H 0.1-1.0 MG/DL Aspartate Amino Transf (AST/SGOT) 45 H 5-34 U/L Alanine Aminotransferase (ALT/SGPT) 27 0-55 U/L Alkaline Phosphatase 87 40-136 U/L Troponin I < 0.028 <0.028 NG/ML C-Reactive Protein High Sensitivity 21.87 H 0.00-0.50 MG/DL Total Protein 6.4 6.4-8.2 GM/DL Albumin 3.5 3.2-4.5 GM/DL Procalcitonin 0.67 H <0.10 NG/ML Serum Alcohol < 10 <10 MG/DL Influenza Type A (RT-PCR) Not Detected Not Detecte Influenza Type B (RT-PCR) Not Detected Not Detecte SARS-CoV-2 RNA (RT-PCR) Not Detected Not Detecte Urine Color HARSH H Urine Clarity CLEAR Urine pH 5.5 5-9 Urine Specific [place] 1.025 H 1.016-1.022 Urine Protein 2+ H NEGATIVE Urine Glucose (UA) NEGATIVE NEGATIVE Urine Ketones TRACE H NEGATIVE Urine Nitrite NEGATIVE NEGATIVE Urine Bilirubin 2+ H NEGATIVE Urine Urobilinogen 0.2 < = 1.0 MG/DL Urine Leukocyte Esterase 3+ H NEGATIVE Urine RBC (Auto) 3+ H NEGATIVE Urine RBC 2-5 H /HPF Urine WBC 25-50 H /HPF Urine Squamous Epithelial Cells NONE /HPF Urine Renal Epithelial Cells NONE /HPF Urine Crystals NONE /LPF Urine Bacteria LARGE H /HPF Urine Casts NONE /LPF Urine Mucus NEGATIVE /LPF Urine Culture Indicated CULTURE PENDING Urine Opiates Screen NEGATIVE NEGATIVE Urine Oxycodone Screen NEGATIVE NEGATIVE Urine Methadone Screen NEGATIVE NEGATIVE Urine Propoxyphene Screen NEGATIVE NEGATIVE Urine Barbiturates Screen NEGATIVE NEGATIVE Ur Tricyclic Antidepressants Screen NEGATIVE NEGATIVE Urine Phencyclidine Screen NEGATIVE NEGATIVE Urine Amphetamines Screen NEGATIVE NEGATIVE Urine Methamphetamines Screen NEGATIVE NEGATIVE Urine Benzodiazepines Screen NEGATIVE NEGATIVE Urine Cocaine Screen NEGATIVE NEGATIVE Urine Cannabinoids Screen NEGATIVE NEGATIVE Glucometer 113 H 70-110 MG/DL Test 08/02/21 21:00 08/02/21 22:40 08/03/21 04:47 08/03/21 07:15 Range/Units Blood Gas Puncture Site LEFT RADIAL Blood Gas Patient Temperature 37.9 Arterial Blood pH 7.50 H 7.37-7.43 Arterial Blood Partial Pressure CO2 28 L 35-45 MMHG Arterial Blood Partial Pressure O2 106 H 79-93 MMHG Arterial Blood HCO3 21 L 23-27 MMOL/L Arterial Blood Total CO2 22.1 21.0-31.0 MMOL/L Arterial Blood Oxygen Saturation 98 94-100 % Arterial Blood Base Excess -1.4 -2.5-2.5 MMOL/L Surjit Test YES-POS Blood Gas Ventilator Setting NO Blood Gas Inspired Oxygen ROOM AIR Ammonia 14 11-32 UMOL/L White Blood Count 21.8 H 4.3-11.0 10^3/uL Red Blood Count 2.70 L 3.80-5.11 10^6/uL Hemoglobin 8.6 L 11.5-16.0 g/dL Hematocrit 26 L 35-52 % Mean Corpuscular Volume 96 80-99 fL Mean Corpuscular Hemoglobin 32 25-34 pg Mean Corpuscular Hemoglobin Concent 33 32-36 g/dL Red Cell Distribution Width 12.8 10.0-14.5 % Platelet Count 213 130-400 10^3/uL Mean Platelet Volume 9.9 9.0-12.2 fL Immature Granulocyte % (Auto) 1 % Neutrophils (%) (Auto) 86 H 42-75 % Lymphocytes (%) (Auto) 2 L 12-44 % Monocytes (%) (Auto) 10 0-12 % Eosinophils (%) (Auto) 0 0-10 % Basophils (%) (Auto) 0 0-10 % Neutrophils # (Auto) 18.7 H 1.8-7.8 10^3/uL Lymphocytes # (Auto) 0.5 L 1.0-4.0 10^3/uL Monocytes # (Auto) 2.3 H 0.0-1.0 10^3/uL Eosinophils # (Auto) 0.0 0.0-0.3 10^3/uL Basophils # (Auto) 0.1 0.0-0.1 10^3/uL Immature Granulocyte # (Auto) 0.3 H 0.0-0.1 10^3/uL Sodium Level 134 L 135-145 MMOL/L Potassium Level 3.6 3.6-5.0 MMOL/L Chloride Level 104 98-107 MMOL/L Carbon Dioxide Level 17 L 21-32 MMOL/L Anion Gap 13 5-14 MMOL/L Blood Urea Nitrogen 19 H 7-18 MG/DL Creatinine 1.22 0.60-1.30 MG/DL Estimat Glomerular Filtration Rate 48 BUN/Creatinine Ratio 16 Glucose Level 124 H 70-105 MG/DL Calcium Level 8.3 L 8.5-10.1 MG/DL Corrected Calcium 9.1 8.5-10.1 MG/DL Total Bilirubin 1.7 H 0.1-1.0 MG/DL Aspartate Amino Transf (AST/SGOT) 47 H 5-34 U/L Alanine Aminotransferase (ALT/SGPT) 27 0-55 U/L Alkaline Phosphatase 114 40-136 U/L Total Protein 5.4 L 6.4-8.2 GM/DL Albumin 3.0 L 3.2-4.5 GM/DL Triglycerides Level 61 <150 MG/DL Cholesterol Level 91 < 200 MG/DL LDL Cholesterol Direct 52 1-129 MG/DL VLDL Cholesterol 12 5-40 MG/DL HDL Cholesterol 25 L 40-60 MG/DL Procalcitonin 2.04 H <0.10 NG/ML Lactic Acid Level 1.01 0.50-2.00 MMOL/L ECG Impression ECG Comment Electrocardiogram from earlier this morning shows sinus tachycardia at 142 bpm with diffuse, nonspecific ST-T wave changes. Diagnosis/Problems Diagnosis/Problems (1) Sinus tachycardia Assessment & Plan: She is being treated for a urinary tract infection with probable sepsis. I suspect this is just reactive sinus tachycardia due to her infection. If this does not resolve over the next 24-48 hours with treatment of the urinary tract infection, then we might want to consider a follow-up echocardiogram. (2) Coronary artery disease without angina pectoris Assessment & Plan: She is not reporting any angina at this point time. She has nonspecific findings on her electrocardiogram and troponin level was undetectable. I would just recommend she continue on her current outpatient therapy which includes aspirin, beta-dwaine and statin medication. (3) Primary hypertension Assessment & Plan: She does have intermittently elevated blood pressures. I will restart her metoprolol succinate but at a slightly lower dose since she is being treated for infection and I do not want to inadvertently because iatrogenic hypotension. (4) Mixed hyperlipidemia Assessment & Plan: I reordered simvastatin which she was taking at home. (5) Chronic kidney disease, stage 3 Assessment & Plan: This will need to be monitored longitudinally. (6) Encephalopathy acute Assessment & Plan: Most likely related to her urinary tract infection with sepsis. ELMER KENNEY JR, MD Aug 03, 2021 15:43
[2021-08-03] MEDS ORDERED: ASPIRIN E.C. 81 MG (ECOTRIN) TAB PO ONE (15:45)
[2021-08-03] MEDS ORDERED: meTOproloL SUCCINATE 50 MG (TOPROL XL) TAB PO ONE (15:45)
[2021-08-03] MEDS: SIMvastatin 10 MG (ZOCOR) TAB PO SCH (20:57)
[2021-08-04] VITALS (11 sets, daily range): BP systolic 153–183; BP diastolic 54–92
[2021-08-04 04:35] LABS: BASOPHILS % (AUTO) 0 % (0-10); EOSINOPHILS % (AUTO) 0 % (0-10); HEMATOCRIT 24 % (35-52); HEMOGLOBIN 7.9 g/dL (11.5-16.0); LYMPHOCYTES # (AUTO) 1.5 10^3/uL (1.0-4.0); LYMPHOCYTES % (AUTO) 9 % (12-44); MEAN CORPUSCULAR HEMOGLOBIN 32 pg (25-34); MEAN CORPUSCULAR HGB CONC 33 g/dL (32-36); MEAN CORPUSCULAR VOLUME 97 fL (80-99); MEAN PLATELET VOLUME 9.3 fL (9.0-12.2); MONOCYTES # (AUTO) 1.7 10^3/uL (0.0-1.0); MONOCYTES % (AUTO) 10 % (0-12); NEUTROPHILS # (AUTO) 12.7 10^3/uL (1.8-7.8); NEUTROPHILS % (AUTO) 78 % (42-75); PLATELET COUNT 221 10^3/uL (130-400); WHITE BLOOD COUNT 16.2 10^3/uL (4.3-11.0)
[2021-08-04 04:47] LABS: ALBUMIN 2.6 GM/DL (3.2-4.5); POTASSIUM 3.6 MMOL/L (3.6-5.0)
[2021-08-04 04:48] LABS: CALCIUM 7.9 MG/DL (8.5-10.1)
[2021-08-04 04:51] LABS: BILIRUBIN,TOTAL 1.6 MG/DL (0.1-1.0)
[2021-08-04 04:53] LABS: CREATININE SERUM 0.93 MG/DL (0.60-1.30)
[2021-08-04] MEDS: CEFEPIME INJECTION 1,000 MG in NS (IVPB) 50 ML IV SCH (05:39)
[2021-08-04] MEDS ORDERED: meTOprolol TARTRATE 50 MG (LOPRESSOR) TAB ONE (06:52)
[2021-08-04] MEDS ORDERED: meTOproloL SUCCINATE 50 MG (TOPROL XL) TAB PO ONE (06:58)
[2021-08-04] MEDS: meTOproloL SUCCINATE 50 MG (TOPROL XL) TAB PO SCH ×2 (06:59→08:29)
[2021-08-04] MEDS ORDERED: NS IV 1000 ML 1,000 ML IV SCH ×2 (07:15→09:45)
[2021-08-04] MEDS ORDERED: meTOprolol 5 MG/5 ML (LOPRESSOR) VIAL IV ONE (07:45)
--- NOTE | 2021-08-04 08:14 | Progress Note - Cardiology ---
Cardiology SOAP Progress Note Subjective: Lying in bed Unable to obtain any information from patient d/t confusion She doesn't answer questions appropriately Objective: I&O/Vital Signs 08/04/21 08/05/21 08/05/21 08/05/21 23:46 00:00 01:00 03:46 Pulse 129 82 Resp 13 B/P (MAP) 153/98 (116) Pulse Ox 96 96 96 O2 Delivery Room Air Room Air Room Air 08/05/21 04:00 Pulse 81 Resp 28 B/P (MAP) 165/53 (90) Pulse Ox 95 O2 Delivery Room Air 08/05/21 00:00 Intake Total 1515 ml Output Total 1275 ml Balance 240 ml Weight (Pounds): 175 Weight (Ounces): 0.0 Weight (Calculated Kilograms): [id number] Constitutional: well-developed, well-nourished, other (Oreinted to name, unable to obtain any other information) Respiratory: No accessory muscle use, No respiratory distress; chest expansion is symmetric, chest is bilaterally symmetric, lungs clear to auscultation Cardiovascular: tachycardia Gastrointestional: tender, soft; No guarding; audible bowel sounds Extremities: no lower extremity edema bilateral Neurologic/Psychiatric: other (moves extremities) Skin: normal color, warm/dry; No rash on exposed areas, No ulcerations on exposed areas Results/Procedures: Labs Laboratory Tests 08/04/21 10:08: Lactic Acid Level 0.69 08/04/21 10:50: Urine Color YELLOW, Urine Clarity CLEAR, Urine pH 6.0, Urine Specific [place] 1.020, Urine Protein NEGATIVE, Urine Glucose (UA) NEGATIVE, Urine Ketones TRACEH , Urine Nitrite NEGATIVE, Urine Bilirubin NEGATIVE, Urine Urobilinogen 0.2, Urine Leukocyte Esterase 1+H, Urine RBC (Auto) 1+H, Urine RBC 0-2, Urine WBC 2- 5, Urine Squamous Epithelial Cells 0-2, Urine Crystals NONE, Urine Bacteria TRACE, Urine Casts NONE, Urine Mucus NEGATIVE, Urine Culture Indicated YES 08/04/21 10:57: Blood Gas Puncture Site RR, Blood Gas Patient Temperature 36.2, Arterial Blood pH 7.40, Arterial Blood Partial Pressure CO2 27L, Arterial Blood Partial Pressure O2 91, Arterial Blood HCO3 16*L, Arterial Blood Total CO2 17.1L, Arterial Blood Oxygen Saturation 97, Arterial Blood Base Excess -7.8L, Surjit Test YES-POS, Blood Gas Ventilator Setting NO, Blood Gas Inspired Oxygen RA 08/04/21 17:11: Glucometer 87 08/05/21 04:54: White Blood Count 15.0H, Red Blood Count 2.38L, Hemoglobin 7.6L, Hematocrit 24L, Mean Corpuscular Volume 100H, Mean Corpuscular Hemoglobin 32, Mean Corpuscular Hemoglobin Concent 32, Red Cell Distribution Width 13.8, Platelet Count 257, Mean Platelet Volume 9.3, Immature Granulocyte % (Auto) 4, Neutrophils (%) (Auto) 77H, Lymphocytes (%) (Auto) 11L, Monocytes (%) (Auto) 7, Eosinophils (%) (Auto) 1, Basophils (%) (Auto) 0, Neutrophils # (Auto) 11.6H, Lymphocytes # (Auto) 1.6, Monocytes # (Auto) 1.0, Eosinophils # (Auto) 0.2, Basophils # (Auto) 0.1, Immature Granulocyte # (Auto) 0.6H, Sodium Level 144, Potassium Level 3.4L, Chloride Level 117H, Carbon Dioxide Level 13L, Anion Gap 14, Blood Urea Nitrogen 16, Creatinine 0.83, Estimat Glomerular Filtration Rate 76, BUN/Creatinine Ratio 19, Glucose Level 76, Calcium Level 8.2L, Corrected Calcium 9.4, Total Bilirubin 1.3H, Aspartate Amino Transf (AST/SGOT) 23, Alanine Aminotransferase (ALT/SGPT) 21, Alkaline Phosphatase 87, Total Protein 5.2L, Albumin 2.5L Microbiology 08/02/21 Blood Culture - Preliminary, Resulted Escherichia coli 08/02/21 Urine Culture - Preliminary, Resulted Escherichia coli A/P: Assessment: UTI with sepsis and delirium Sinus tachycardia - likely secondary to sepsis Recent (May 2020) rash that has been ascribed to amlodipine by her label maker H/o mild, chronic diastolic CHF, none currently CAD. Card cath of 01/10/19: patent stent (done in [place], [place] in 2006) in the ostial/prox RCA, no significant CAD, LVEF 65%, elevated LVEDP, no renal artery stenosis Labile hypertension and white-coat hypertension Hospitalization in October 2018 with shortness of breath - multi-factorial likely r/t pneumonia/bronchitis and/or acute on chronic diastolic CHF - clinically improved Echocardiogram of May 10, 2018 showed LVEF 60-65%. Mild MR and AoR. PASP 30-35 mmHg Hypertension (Losartan dc'd and changed to Lisinopril on 05-13-18 d/t medication miter operator recall d/t contaminant) Intolerant to doxazosin d/t profound dizziness Hyperlipidemia being treated with statin therapy - followed by her PCP Bipolar disorder Arthritis of unknown type for which she takes Plaquenil and sulfasalazine, followed Dr Lazaro (her kiln firer at [facility]) Elevated body mass index of approx 29 IBS for which she takes Bentyl PFT's from 08-16-2013 showed spirometry WNL. Lung volumes WNL, diffusion capacity WNL Carotid u/s from 05-31-15 showed less than 40% R ICA stenosis and approx 60% L ICA stenosis for which she is following with Dr. Lechuga Bilateral leg swelling, likely related to venous insuff Chronic gen fatigue. TSH normal on 03/30/17 (3.11) H/o anemia, followed and treated by her pcp Dr Tee Multiple medication intolerances Plan: UTI with delirium - management per medical services Sinus tachycardia - likely d/t sepsis - d/t inability to follow commands and swallow she is currently receiving IV BB - adjust dose as tolerated, indicated Advise resumption of ASA d/t known h/o CAD when safely able to take oral intake Monitor lab closely Further recs will be based on her hospital course Clinical Quality Measures Stroke: Date of last known well: Aug 02, 2021 Symptoms onset unknown: Yes YAO ARREDONDO Aug 04, 2021 08:14
[2021-08-04] MEDS: ENOXAPARIN 40 MG/0.4 ML (LOVENOX) SYR SC SCH (08:17)
[2021-08-04] MEDS: NS IV 1000 ML 1,000 ML IV SCH ×2 (08:24→09:25)
[2021-08-04] MEDS: ASPIRIN E.C. 81 MG (ECOTRIN) TAB PO SCH (08:29)
[2021-08-04] MEDS: SENNOSIDES 8.6 MG (SENOKOT) TAB PO SCH ×2 (08:29→20:14)
[2021-08-04] MEDS: FAMOTIDINE 20 MG (PEPCID) TABLET PO SCH (08:29)
[2021-08-04] MEDS: DOCUSATE SODIUM 100 MG (COLACE) CAP PO SCH ×2 (08:29→20:13)
--- NOTE | 2021-08-04 09:17 | Progress Note - Cardiology ---
Cardiology SOAP Progress Note Subjective: She is not able to provide any meaningful history Does not answer most questions Does not report cp or shortness of breath Objective: I&O/Vital Signs 08/03/21 08/03/21 08/04/21 08/04/21 22:00 23:46 00:00 01:00 Pulse 92 101 98 Resp 9 20 B/P (MAP) 169/65 (99) 174/74 (107) Pulse Ox 98 95 O2 Delivery Room Air Room Air Room Air 08/04/21 08/04/21 08/04/21 08/04/21 03:46 04:00 04:23 07:00 Temp 36.6 Pulse 102 140 Resp 17 B/P (MAP) 163/54 (90) Pulse Ox 97 O2 Delivery Room Air Room Air 08/04/21 08/04/21 08/04/21 08/04/21 07:00 07:39 08:00 09:00 Temp 36.5 Pulse 138 135 130 Resp 13 15 16 B/P (MAP) 153/92 (112) Pulse Ox 94 97 97 O2 Delivery Room Air Room Air Room Air 08/04/21 00:00 Intake Total 1562 ml Output Total 175 ml Balance 1387 ml Weight (Pounds): 175 Weight (Ounces): 0.0 Weight (Calculated Kilograms): 79.635559 Constitutional: No AAO x 3; well-developed, well-nourished, other (Oreinted to name, unable to obtain any other information) Respiratory: No accessory muscle use, No respiratory distress; chest expansion is symmetric, chest is bilaterally symmetric, lungs clear to auscultation Cardiovascular: tachycardia Gastrointestional: tender, soft; No guarding; audible bowel sounds Extremities: no lower extremity edema bilateral Neurologic/Psychiatric: No oriented x 3; other (moves extremities) Skin: normal color, warm/dry; No rash on exposed areas, No ulcerations on exposed areas Results/Procedures: Labs Laboratory Tests 08/04/21 04:26: White Blood Count 16.2H, Red Blood Count 2.47L, Hemoglobin 7.9L, Hematocrit 24L, Mean Corpuscular Volume 97, Mean Corpuscular Hemoglobin 32, Mean Corpuscular Hemoglobin Concent 33, Red Cell Distribution Width 13.3, Platelet Count 221, Mean Platelet Volume 9.3, Immature Granulocyte % (Auto) 2, Neutrophils (%) (Auto) 78H, Lymphocytes (%) (Auto) 9L, Monocytes (%) (Auto) 10, Eosinophils (%) (Auto) 0, Basophils (%) (Auto) 0, Neutrophils # (Auto) 12.7H, Lymphocytes # (Auto) 1.5, Monocytes # (Auto) 1.7H, Eosinophils # (Auto) 0.0, Basophils # (Auto) 0.0, Immature Granulocyte # (Auto) 0.3H, Sodium Level 137, Potassium Level 3.6, Chloride Level 111H, Carbon Dioxide Level 14L, Anion Gap 12, Blood Urea Nitrogen 17, Creatinine 0.93, Estimat Glomerular Filtration Rate 67, BUN/Creatinine Ratio 18, Glucose Level 101, Calcium Level 7.9L, Corrected Calcium 9.0, Total Bilirubin 1.6H, Aspartate Amino Transf (AST/SGOT) 32, Alanine Aminotransferase (ALT/SGPT) 25, Alkaline Phosphatase 100, Total Protein 5.0L, Albumin 2.6L, Procalcitonin 2.47H Microbiology 08/02/21 Urine Culture - Preliminary, Resulted Gram Negative Bacillus 1 08/02/21 Blood Culture - Preliminary, Resulted Gram Negative Bacillus 1 A/P: Assessment: UTI with sepsis and delirium Sinus tachycardia - likely secondary to sepsis Recent (May 2020) rash that has been ascribed to amlodipine 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 Card cath of 01/10/19: patent stent (done in [place], [place] in 2006) in the ostial/prox RCA, no significant CAD, LVEF 65%, elevated LVEDP, no renal artery stenosis Labile hypertension and white-coat hypertension Hospitalization in October 2018 with shortness of breath - multi-factorial likely r/t pneumonia/bronchitis and/or acute on chronic diastolic CHF - clinically improved Echocardiogram of May 10, 2018 showed LVEF 60-65%. Mild MR and AoR. PASP 30-35 mmHg Hypertension (Losartan dc'd and changed to Lisinopril on 05-13-18 d/t medication heeler recall d/t contaminant) Intolerant to doxazosin d/t profound dizziness Hyperlipidemia being treated with statin therapy - followed by her PCP Bipolar disorder Arthritis of unknown type for which she takes Plaquenil and sulfasalazine, followed Dr Lazaro (her sales and service change leader at [facility]) Elevated body mass index of approx 29 IBS for which she takes Bentyl PFT's from 08-16-2013 showed spirometry WNL. Lung volumes WNL, diffusion capacity WNL Carotid u/s from 05-31-15 showed less than 40% R ICA stenosis and approx 60% L ICA stenosis for which she is following with Dr. Lechuga Bilateral leg swelling, likely related to venous insuff Chronic gen fatigue. TSH normal on 03/30/17 (3.11) H/o anemia, followed and treated by her pcp Dr Tee Multiple medication intolerances Plan: UTI with delirium is being managed by the Medical services Sinus tachycardia - likely d/t sepsis - d/t inability to follow commands and swallow she is currently receiving IV BB - adjust dose as tolerated, indicated Advise resumption of ASA d/t known h/o CAD when safely able to take oral intake Monitor lab closely Further recs will be based on her hospital course Clinical Quality Measures Stroke: Date of last known well: Aug 02, 2021 Symptoms onset unknown: Yes CHAVEZ LR MD FACP FACC CCDS Aug 04, 2021 09:17
[2021-08-04] MEDS ORDERED: MEROPENEM 1,000 MG in NS (IVPB) 100 ML IV SCH (09:45)
[2021-08-04] MEDS ORDERED: VANCOMYCIN INJECTION 0.1 MG in NS (IVPB) 250 ML IV SCH (09:45)
--- NOTE | 2021-08-04 09:53 | Physical Therapy Evaluation ---
PT Evaluation-General Medical Diagnosis Admission Date Aug 02, 2021 at 22:18 Medical Diagnosis: delirium/sepsis/UTI Onset Date: Aug 02, 2021 Therapy Diagnosis Therapy Diagnosis: generalized weakness/debility Height/Weight Height (Feet): 5 Height (Inches): 6.00 Weight (Pounds): 175 Weight (Ounces): 0.0 Precautions Precautions/Isolations: Aspiration Referral Physician: Nay Reason for Referral: Evaluation/Treatment Medical History Pertinent Medical History: Arthritis, CAD, Heart Failure, HTN Additional Medical History autoimmune connective tissue disorder Current History ER secondary to multiple falls and AMS Reviewed History: Yes Social History Unable to obtain information on living conditions. Patient too confused and family not present. Prior Prior Level of Function SCALE: Activities may be completed with or without assistive devices. 0-Gobuelgjlg-vqsenoz completes the activity by him/herself with no assistance from a helper. 5-Set-up or Clean-up Assistance-helper sets up or cleans up; patient completes activity. [place] assists only prior to or following the activity. 4-Supervision or Touching Assistance-helper provides verbal cues and/or touching/steadying and/or contact guard assistance as patient completes activity. Assistance may be provided throughout the activity or intermittently. 3-Partial/Moderate Assistance-helper does LESS THAN HALF the effort. [place] lifts, holds or supports trunk or limbs, but provides less than half the effort. 2-Substantial/Maximal Assistance-helper does MORE THAN HALF the effort. [place] lifts or holds trunk or limbs and provides more than half the effort. 5-Yatxndxwi-wwkmvw does ALL the effort. Patient does none of the effort to complete the activity. Or, the assistance of 2 or more helpers is required for the patient to complete the activity. If activity was not attempted, code reason: 7-Patient Refused. 9-Not Applicable-not attempted and the patient did not perform the activity before the current illness, exacerbation or injury. 10-Not Attempted due to Environmental Limitations-(lack of equipment, weather restraints, etc.). 88-Not Attempted due to Medical Conditions or Safety Concerns. unable to determine PLOF due to patient confusion and no family present. PT Evaluation-Current Subjective Patient will not open her eyes, however, does respond to this PT. Difficulty with following direction. Objective Patient Orientation: Confused Attachments: Leyva Catheter, IV ROM/Strength ROM Lower Extremities bilateral LE WFL Strength Lower Extremities 4-/5 grossly bilateral LE (unable to formally test due to patient's confusion) Integumentary/Posture Bladder Incontinence: Leyva Cath Posture WFL Neuromuscular (Tone, Coordination, Reflexes) grossly intact Sensory Vision: Unable to Assess Hearing: Functional Transfers Sit to Lying (QC): 3 Lying to Sitting/Side of Bed(Q: 3 Sit to Stand (QC): 3 Chair/Rev-sc-Pbjye Xfer(QC): 88 patient able to perform mobility with tactile cues Gait Does the Patient Walk?: No and Walking Goal IS indicated Walk 10 feet (QC): 88 Walk 50 ft with 2 Turns(QC): 88 Walk 150 ft (QC): 88 Distance: 5 side steps Gait Assistive Device: None Comments/Gait Description PT assist Balance Sitting Static: Fair Sitting Dynamic: Fair Standing Static: Fair Standing Dynamic: Fair Assessment/Needs 70 y.o. female, will benefit from skilled PT to address functional strength and mobility to improve current LOF. Patient severely confused, will not open eyes and mumbles. RN present for session. Rehab Potential: Guarded PT Skilled Nursing Goals Sewer Pipe Cleaner Goals PT Skilled Nursing Goals Time Frame: Aug 23, 2021 Roll Left & Right (QC): 6 Sit to Lying (QC): 6 Lying-Sitting on Side/Bed(QC): 6 Sit to Stand (QC): 6 Chair/Fxe-lt-Fihpf Xfer(QC): 6 Toilet Transfer (QC): 6 Walk 10 feet (QC): 6 Walk 50ft with 2 Turns (QC): 6 Walk 150 ft (QC): 6 PT Plan Problem List Problem List: Activity Tolerance, Functional Strength, Safety, Balance, Gait, Transfer, Bed Mobility Treatment/Plan Treatment Plan: Continue Plan of Care Treatment Plan: Bed Mobility, Education, Functional Activity Bree, Functional Strength, Gait, Safety, Therapeutic Exercise, Transfers Treatment Duration: Aug 23, 2021 Frequency: 6 times per week Estimated Hrs Per Day: .25 hour per day Time/GCodes Time In: 750 Time Out: 805 Total Billed Treatment Time: 15 Total Billed Treatment 1 visit EVModC 15 min VANESA WHATLEY PT Aug 04, 2021 09:53
--- NOTE | 2021-08-04 10:22 | Diagnostic Imaging Report ---
Indication: Fever. Time of Exam: 10:19 AM Correlation is made with prior chest from one day earlier. Heart size is stable. There is central congestion but no failure. No infiltrates are seen. There is no effusion or pneumothorax. IMPRESSION: Mild central congestion. Dictated by: Dictated on workstation # [id number]
[2021-08-04] MEDS: MEROPENEM 500 MG/NS 100 ML IVPB IV SCH ×6 (10:35→21:55)
[2021-08-04] MEDS ORDERED: VANCOMYCIN 1500 MG/NS 500 ML IVPB IV SCH ×2 (11:00)
[2021-08-04 11:04] LABS: ABG BASE EXCESS -7.8 MMOL/L (-2.5-2.5); ABG OXYGEN SATURATION 97 % (94-100); ABG PCO2 27 MMHG (35-45); ABG PO2 91 MMHG (79-93); ABG TCO2 17.1 MMOL/L (21.0-31.0)
[2021-08-04 11:04] LABS: BILIRUBIN,URINE NEGATIVE (NEGATIVE); CLARITY,URINE CLEAR; COLOR,URINE YELLOW; GLUCOSE, URINE (UA) NEGATIVE (NEGATIVE); KETONES,URINE TRACE (NEGATIVE); LEUKOCYTE ESTERASE ,URINE 1+ (NEGATIVE); NITRITE,URINE NEGATIVE (NEGATIVE); PROTEIN,URINE NEGATIVE (NEGATIVE)
[2021-08-04 11:07] LABS: ALLENS TEST YES-POS; INSPIRED O2 RA; PATIENT TEMP 36.2; VENTILATOR NO
[2021-08-04 11:17] LABS: BACTERIA,URINE TRACE /HPF; RBC,URINE 0-2 /HPF; SQUAMOUS EPITHELIAL CELL,UR 0-2 /HPF
--- NOTE | 2021-08-04 11:17 | Progress Note ---
KEEGAN MARTINS MED STUDENT 08/04/21 1117: Subjective Date Seen by a Provider: Aug 04, 2021 Time Seen by a Provider: 08:30 Subjective/Events-last exam Margarette is still delirious as of this morning. She is unable to state the year, month, or her 's name. She was able to open her eyes once. Unable to swallow liquids, she is now NPO for high aspiration risk. States that she has pain, when asked where that is. she answers with "barely there." Review of Systems General: Other (Unable to obtain due to clinical status ) Pulmonary: Other (Unable to obtain due to clinical status ) Cardiovascular: Other (Unable to obtain due to clinical status ) Gastrointestinal: Other (Unable to obtain due to clinical status ) Genitourinary: Other (Unable to obtain due to clinical status ) Neurological: Confusion, Other Focused Exam Lactate Level 08/02/21 20:25: Lactic Acid Level 1.43 08/03/21 07:15: Lactic Acid Level 1.01 08/04/21 10:08: Lactic Acid Level 0.69 Time of Focused Exam: 22:16 Lactic Acid Level Laboratory Tests Test 08/04/21 10:08 Lactic Acid Level 0.69 MMOL/L (0.50-2.00) Objective Exam Last Set of Vital Signs Vital Signs Date Time Temp Pulse Resp B/P (MAP) Pulse Ox O2 Delivery O2 Flow Rate FiO2 08/04/21 10:00 131 18 97 Room Air 08/04/21 08:00 153/92 (112) 08/04/21 07:39 36.5 Capillary Refill : Less Than 3 Seconds I&O Intake and Output 08/04/21 00:00 Intake Total 1562 ml Output Total 275 ml Balance 1287 ml Intake Oral 1562 ml Output Urine Total 275 ml # Voids 2 General: Cooperative, Mild Distress, Other (Not alert, orientation x0) HEENT: EOMI Neck: No Thyromegaly, No LAD Heart: Normal S1, Normal S2, Other (tachycardia) Abdomen: Normal Bowel Sounds, Soft Neuro: Other (Unable to form complete sentences) Psych/Mental Status: Other (Delirium ) Results Lab Laboratory Tests 08/04/21 04:26: White Blood Count 16.2H, Red Blood Count 2.47L, Hemoglobin 7.9L, Hematocrit 24L, Mean Corpuscular Volume 97, Mean Corpuscular Hemoglobin 32, Mean Corpuscular Hemoglobin Concent 33, Red Cell Distribution Width 13.3, Platelet Count 221, Mean Platelet Volume 9.3, Immature Granulocyte % (Auto) 2, Neutrophils (%) (Auto) 78H, Lymphocytes (%) (Auto) 9L, Monocytes (%) (Auto) 10, Eosinophils (%) (Auto) 0, Basophils (%) (Auto) 0, Neutrophils # (Auto) 12.7H, Lymphocytes # (Auto) 1.5, Monocytes # (Auto) 1.7H, Eosinophils # (Auto) 0.0, Basophils # (A uto) 0.0, Immature Granulocyte # (Auto) 0.3H, Sodium Level 137, Potassium Level 3.6, Chloride Level 111H, Carbon Dioxide Level 14L, Anion Gap 12, Blood Urea Nitrogen 17, Creatinine 0.93, Estimat Glomerular Filtration Rate 67, BUN/Creatinine Ratio 18, Glucose Level 101, Calcium Level 7.9L, Corrected Calcium 9.0, Total Bilirubin 1.6H, Aspartate Amino Transf (AST/SGOT) 32, Alanine Aminotransferase (ALT/SGPT) 25, Alkaline Phosphatase 100, Total Protein 5.0L, Albumin 2.6L, Procalcitonin 2.47H 08/04/21 10:08: Lactic Acid Level 0.69 08/04/21 10:50: 08/04/21 10:57: Microbiology 08/02/21 Urine Culture - Preliminary, Resulted Gram Negative Bacillus 1 08/02/21 Blood Culture - Preliminary, Resulted Gram Negative Bacillus 1 Assessment/Plan Assessment/Plan Assess & Plan/Chief Complaint CC: Delirium, gram negative bacteremia, sepsis A/P Gram negative bacteremia, UTI etiology - increased procalcitonin of 2.47 - Switch from cefepime to meropenem - redraw blood cultures - repeat CXR Delirium - will continue management of bacteremia - Lactic acid today - ABG today Sepsis - continued treatment of bactermia - IVF Volume depletion - IVF bolus DVT ppx - lovenox injections Autoimmune connective tissue disease - Continue home medication CAD - Continue home medication HTN - Continue home medication HLD - Continue home medication Clinical Quality Measures Stroke: Date of last known well: Aug 02, 2021 Symptoms onset unknown: Yes KAUR TEE DO 08/05/21 9707: Subjective Subjective/Events-last exam Pt is still remaining delirious Heart rate is in the 130s Meropenem and Vancomycin maintained and DC Cefepime Blood cultures x2 will be done and repeat UA to be sure there is no other bacteria causing infection in the elevated procalcitonin IV fluid normal saline, bolus will be given Review of Systems General: Fatigue, Malaise Neurological: Confusion Objective Exam General: Cooperative, Mild Distress, Other (Not alert, orientation x0) Lungs: Clear to Auscultation, Normal Air Movement Heart: Regular Rate, Normal S1, Normal S2 Assessment/Plan Assessment/Plan Assess & Plan/Chief Complaint Assessment: Sepsis Sinus tachycardia UTI/pyelonephritis with gram-negative bacteremia placed on cefepime empirically Volume depletion requiring volume resuscitation 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 Galan Hypertension malignant type Hyperlipidemia Chronic cough Plan: Supportive care Consult cardiology Volume repletion Antibiotics DVT prophylaxis 08/04/2021: Supportive care IVF Broaden abx Reculture Cardiology Supervisory-Addendum Brief Verification & Attestation Participated in pt care: history, MDM, physical Personally performed: exam, history, MDM, supervision of care Care discussed with: Medical Student Procedures: n/a Results interpretation: Verified all documentation Verification and Attestation of Medical Student E/M Service A medical student performed and documented this service in my presence. I reviewed and verified all information documented by the medical student and made modifications to such information, when appropriate. I personally performed the physical exam and medical decision making. Kaur Tee, Aug 05, 2021,04:54 KEEGAN MARTINS MED STUDENT Aug 04, 2021 11:17 KAUR TEE DO Aug 05, 2021 04:57
--- NOTE | 2021-08-04 11:31 | Occupational Therapy Eval ---
OT Evaluation-General/PLF Medical Diagnosis Admission Date Aug 02, 2021 at 22:18 Medical Diagnosis: delirium/sepsis/UTI Onset Date: Aug 02, 2021 Therapy Diagnosis Therapy Diagnosis: impaired cognition, speech, strength, adls, iadls Height/Weight Height (Feet): 5 Height (Inches): 6.00 Weight (Pounds): 175 Weight (Ounces): 0.0 Precautions Precautions/Isolations: Aspiration, Fall Prevention, Standard Precautions Safety Interventions: Bed Exit Alarm, Reorient-Attempt Referral Physician: Nay Referral Reason: Evaluation/Treatment Medical History Pertinent Medical History: Arthritis, CAD, Heart Failure, HTN Additional Medical History autoimmune connective tissue disease Current History Pt with expressive and receptive aphasia. Spouse provides all PLOF information. Patient lives with spouse in a single story home. She was indep with adls and iadls prior to admission. She did not use any AD for mobility. Reviewed History: Yes Social History Home: Single Level Current Living Status: Spouse ADL-Prior Level of Function SCALE: Activities may be completed with or without assistive devices. 7-Awwimlabhp-aojxhyj completes the activity by him/herself with no assistance from a helper. 5-Set-up or Clean-up Assistance-helper sets up or cleans up; patient completes activity. [place] assists only prior to or following the activity. 4-Supervision or Touching Assistance-helper provides verbal cues and/or touching/steadying and/or contact guard assistance as patient completes activity. Assistance may be provided throughout the activity or intermittently. 3-Partial/Moderate Assistance-helper does LESS THAN HALF the effort. [place] lifts, holds or supports trunk or limbs, but provides less than half the effort. 2-Substantial/Maximal Assistance-helper does MORE THAN HALF the effort. [place] lifts or holds trunk or limbs and provides more than half the effort. 6-Rkrrtchzi-nescgg does ALL the effort. Patient does none of the effort to complete the activity. Or, the assistance of 2 or more helpers is required for the patient to complete the activity. If activity was not attempted, code reason: 7-Patient Refused. 9-Not Applicable-not attempted and the patient did not perform the activity before the current illness, exacerbation or injury. 10-Not Attempted due to Environmental Limitations-(lack of equipment, weather restraints, etc.). 88-Not Attempted due to Medical Conditions or Safety Concerns. Self Care: Independent Functional Cognition: Independent DME/Equipment: Tub/Shower Drive Self: Yes OT Current Status Subjective Pt with expressive/receptive aphasia. She often only verbalizes "i don't have to," I can tell you why I don't have to." Appearance Pt left supine in bed, all needs within reach, spouse in the room. Mental Status/Objective Patient Orientation: Confused, Unable to Assess Attachments: Leyva Catheter, IV, Oxygen, Telemetry Current Glasses/Contacts: Yes Hearing Aids: No Dentures/Partials: Yes Hand Dominance: Right Upper Extremity ROM Pt does not follow verbal commands. OT placed pts RUE into 90 degrees shoulder flexion which she was able to hold. With tactile cues, she was then able to bring into full range. Pt unable to hold 90 degrees on LUE, drift away from midline noted. Pt refuses to squeeze fingers, reporting "I don't have to." Upper Extremity Strength see above ADL-Treatment RN reports inconsistency with abilities. Per RN, pt unable to use arms when cued but can at other times. Pt keeps eyes closed for majority of session. When asked if she has difficulty keeping eyes open, she verbalizes "no." Face muscles twitching throughout. Pt not appropriate for any OOB activity secondary to impaired cognition and inability to follow directions. HR in 130's at rest. Body warm to the touch. Education OT Patient Education: Correct positioning, Purpose of tx/functional activities, Safety issues, Transfer techniques Teaching Recipient: Patient, Family Teaching Methods: Demonstration, Discussion Response to Teaching: Unable to Return Demonstration, Unable to Comprehend, Reinforcement Needed OT Mcc Goals Basin Operator Goals Time Frame: Aug 25, 2021 Eating (QC): 4 Oral Hygiene (QC): 4 Toileting Hygiene (QC): 4 Shower/Bathe Self (QC): 4 Upper Body Dressing (QC): 4 Lower Body Dressing (QC): 4 On/Off Footwear (QC): 4 1=Demonstrate adherence to instructed precautions during ADL tasks. 2=Patient will verbalize/demonstrate understanding of assistive devices/modifications for ADL. 3=Patient will improve strength/tolerance for activity to enable patient to perform ADL's. OT Education/Plan Problem List/Assessment Assessment: Decreased Activ Tolerance, Decreased Safety Aware, Decreased UE S trength, Impaired Bed Mobility, Impaired Cognition, Impaired Coordination, Impaired Funct Balance, Impaired I ADL's, Impaired Self-Care Skills, Restricted Funct UE ROM Discharge Recommendations Plan/Recommendations: Continue POC Therapy Discharge Recommendati: Post Acute OT Treatment Plan/Plan of Care Treatment,Training & Education: Yes Patient would benefit from OT for education, treatment and training to promote independence in ADL's, mobility, safety and/or upper extremity function for ADL's. Plan of Care: ADL Retraining, Cognitive Retraining, Functional Mobility, Group Exercise/Act as Ind, UE Funct Exercise/Act Treatment Duration: Aug 25, 2021 Frequency: 3 times per week (3-5x/week) Estimated Hrs Per Day: .25 hour per day Agreement: Yes Rehab Potential: Guarded Time/GCodes Start Time: 11:12 Stop Time: 11:22 Total Time Billed (hr/min): 10 Billed Treatment Time 1 visit Leatha Sanchez OT Aug 04, 2021 11:31
[2021-08-04] MEDS ORDERED: OLME20TA24 PO (11:50)
[2021-08-04] MEDS ORDERED: PANT40TA52 PO (11:50)
[2021-08-04] MEDS: meTOprolol 5 MG/5 ML (LOPRESSOR) VIAL IV SCH ×3 (12:31→23:22)
[2021-08-04] MEDS ORDERED: cloNIDine 0.2 MG PATCH (CATAPRES TTS) TDSY TD NR (14:37)
[2021-08-04] MEDS: LORazepam INJ 2 MG/ML (ATIVAN) VIAL IVP PRN (17:07)
[2021-08-04] MEDS: SIMvastatin 10 MG (ZOCOR) TAB PO SCH (20:14)
[2021-08-04] MEDS ORDERED: VANCOMYCIN 1 GM/NS 250 ML IVPB IV SCH ×2 (23:00)
[2021-08-05] VITALS (7 sets, daily range): BP systolic 153–180; BP diastolic 53–98
[2021-08-05] MEDS: LORazepam INJ 2 MG/ML (ATIVAN) VIAL IVP PRN (00:09)
[2021-08-05] MEDS: NS IV 1000 ML 1,000 ML IV SCH ×3 (02:59→14:13)
[2021-08-05] MEDS: MEROPENEM 500 MG/NS 100 ML IVPB IV SCH ×8 (04:15→20:43)
[2021-08-05 05:10] LABS: BASOPHILS # (AUTO) 0.1 10^3/uL (0.0-0.1); BASOPHILS % (AUTO) 0 % (0-10); EOSINOPHILS # (AUTO) 0.2 10^3/uL (0.0-0.3); EOSINOPHILS % (AUTO) 1 % (0-10); HEMATOCRIT 24 % (35-52); HEMOGLOBIN 7.6 g/dL (11.5-16.0); LYMPHOCYTES # (AUTO) 1.6 10^3/uL (1.0-4.0); LYMPHOCYTES % (AUTO) 11 % (12-44); MEAN CORPUSCULAR HEMOGLOBIN 32 pg (25-34); MEAN CORPUSCULAR HGB CONC 32 g/dL (32-36); MEAN CORPUSCULAR VOLUME 100 fL (80-99); MEAN PLATELET VOLUME 9.3 fL (9.0-12.2); MONOCYTES % (AUTO) 7 % (0-12); NEUTROPHILS # (AUTO) 11.6 10^3/uL (1.8-7.8); NEUTROPHILS % (AUTO) 77 % (42-75); PLATELET COUNT 257 10^3/uL (130-400)
[2021-08-05 05:31] LABS: ALBUMIN 2.5 GM/DL (3.2-4.5); POTASSIUM 3.4 MMOL/L (3.6-5.0)
[2021-08-05 05:32] LABS: CALCIUM 8.2 MG/DL (8.5-10.1)
[2021-08-05 05:33] LABS: TOTAL PROTEIN 5.2 GM/DL (6.4-8.2)
[2021-08-05 05:35] LABS: BILIRUBIN,TOTAL 1.3 MG/DL (0.1-1.0)
[2021-08-05 05:37] LABS: CREATININE SERUM 0.83 MG/DL (0.60-1.30)
[2021-08-05] MEDS: meTOprolol 5 MG/5 ML (LOPRESSOR) VIAL IV SCH ×2 (05:38→12:04)
[2021-08-05] MEDS: FAMOTIDINE 20 MG (PEPCID) TABLET PO SCH (08:44)
[2021-08-05] MEDS: DOCUSATE SODIUM 100 MG (COLACE) CAP PO SCH ×2 (08:45→19:52)
[2021-08-05] MEDS: SENNOSIDES 8.6 MG (SENOKOT) TAB PO SCH ×2 (08:45→19:51)
[2021-08-05] MEDS: meTOproloL SUCCINATE 50 MG (TOPROL XL) TAB PO SCH (08:45)
[2021-08-05] MEDS ORDERED: hydrALAZINE (APESOLINE) 20 MG/ML VIAL IV ONE (08:45)
[2021-08-05] MEDS: ASPIRIN E.C. 81 MG (ECOTRIN) TAB PO SCH (08:45)
[2021-08-05] MEDS: ENOXAPARIN 40 MG/0.4 ML (LOVENOX) SYR SC SCH (08:48)
[2021-08-05] MEDS: POTASSIUM CL 10MEQ/50ML IVPB 50 ML IV SCH ×4 (08:49→12:45)
--- NOTE | 2021-08-05 08:51 | Progress Note - Cardiology ---
Cardiology SOAP Progress Note Subjective: Sitting up in recliner at the bedside Spouse at the bedside More alert today Conversation not appropriate to questions at times Objective: I&O/Vital Signs 08/05/21 08/05/21 08/05/21 08/05/21 04:00 07:00 08:00 08:00 Temp 37.0 Pulse 81 84 Resp 28 B/P (MAP) 165/53 (90) Pulse Ox 95 96 O2 Delivery Room Air Room Air 08/05/21 08/05/21 08/05/21 08/05/21 08:00 11:46 12:04 12:09 Temp 36.7 Pulse 88 82 Resp 16 18 B/P (MAP) 180/69 (106) 172/72 (105) Pulse Ox 95 96 99 96 O2 Delivery Room Air Room Air Room Air Room Air 08/05/21 00:00 Intake Total 1515 ml Output Total 1275 ml Balance 240 ml Weight (Pounds): 175 Weight (Ounces): 0.0 Weight (Calculated Kilograms): 79.712995 Constitutional: No AAO x 3; well-developed, well-nourished, other (Oreinted to name, unable to obtain any other information) Respiratory: No accessory muscle use, No respiratory distress; chest expansion is symmetric, chest is bilaterally symmetric, lungs clear to auscultation Cardiovascular: regular rate-rhythm Gastrointestional: No tender; soft; No guarding; audible bowel sounds Extremities: no lower extremity edema bilateral Neurologic/Psychiatric: No oriented x 3; other (moves extremities) Skin: pallor; No rash on exposed areas, No ulcerations on exposed areas Results/Procedures: Labs Laboratory Tests 08/04/21 17:11: Glucometer 87 08/05/21 04:54: White Blood Count 15.0H, Red Blood Count 2.38L, Hemoglobin 7.6L, Hematocrit 24L, Mean Corpuscular Volume 100H, Mean Corpuscular Hemoglobin 32, Mean Corpuscular Hemoglobin Concent 32, Red Cell Distribution Width 13.8, Platelet Count 257, Mean Platelet Volume 9.3, Immature Granulocyte % (Auto) 4, Neutrophils (%) (Aut o) 77H, Lymphocytes (%) (Auto) 11L, Monocytes (%) (Auto) 7, Eosinophils (%) (Auto) 1, Basophils (%) (Auto) 0, Neutrophils # (Auto) 11.6H, Lymphocytes # (Auto) 1.6, Monocytes # (Auto) 1.0, Eosinophils # (Auto) 0.2, Basophils # (Auto) 0.1, Immature Granulocyte # (Auto) 0.6H, Absolute Reticulocyte Count 46, Percent Reticulocyte Count 1.93, Sodium Level 144, Potassium Level 3.4L, Chloride Level 117H, Carbon Dioxide Level 13L, Anion Gap 14, Blood Urea Nitrogen 16, Creatinine 0.83, Estimat Glomerular Filtration Rate 76, BUN/Creatinine Ratio 19, Glucose Level 76, Calcium Level 8.2L, Corrected Calcium 9.4, Total Bilirubin 1.3H, Aspartate Amino Transf (AST/SGOT) 23, Alanine Aminotransferase (ALT/SGPT) 21, Alkaline Phosphatase 87, Total Protein 5.2L, Albumin 2.5L 08/05/21 08:31: Glucometer 97 08/05/21 12:10: Glucometer 78 Microbiology 08/04/21 Urine Culture - Final, Complete NO GROWTH 08/04/21 Blood Culture - Preliminary, Resulted No growth A/P: Assessment: UTI with sepsis and delirium Sinus tachycardia - likely secondary to sepsis Recent (May 2020) rash that has been ascribed to amlodipine by her mobile home set up person H/o mild, chronic diastolic CHF, none currently CAD. Card cath of 01/10/19: patent stent (done in [place], [place] in 2006) in the ostial/prox RCA, no significant CAD, LVEF 65%, elevated LVEDP, no renal artery stenosis Labile hypertension and white-coat hypertension Hospitalization in October 2018 with shortness of breath - multi-factorial likely r/t pneumonia/bronchitis and/or acute on chronic diastolic CHF - clinically improved Echocardiogram of May 10, 2018 showed LVEF 60-65%. Mild MR and AoR. PASP 30-35 mmHg Hypertension (Losartan dc'd and changed to Lisinopril on 05-13-18 d/t medication appeals analyst recall d/t contaminant) Intolerant to doxazosin d/t profound dizziness Hyperlipidemia being treated with statin therapy - followed by her PCP Bipolar disorder Arthritis of unknown type for which she takes Plaquenil and sulfasalazine, followed Dr Lazaro (her hybrid technologist at [facility]) Elevated body mass index of approx 29 IBS for which she takes Bentyl PFT's from 08-16-2013 showed spirometry WNL. Lung volumes WNL, diffusion capacity WNL Carotid u/s from 05-31-15 showed less than 40% R ICA stenosis and approx 60% L ICA stenosis for which she is following with Dr. Lechuga Bilateral leg swelling, likely related to venous insuff Chronic gen fatigue. TSH normal on 03/30/17 (3.11) H/o anemia, followed and treated by her pcp Dr Tee Multiple medication intolerances Plan: UTI with delirium is being managed by the Medical services Sinus tachycardia - likely d/t sepsis - d/t inability to follow commands and swallow she is currently receiving IV BB, Hydralazine and Clonidine patch - adjust dose as tolerated, indicated Advise resumption of ASA d/t known h/o CAD when safely able to take oral intake Monitor lab closely - replace electrolytes Anemia of undetermined etiology - management per medical/eICU services Clinical Quality Measures Stroke: Date of last known well: Aug 02, 2021 Symptoms onset unknown: Yes YAO ARREDONDO Aug 05, 2021 08:51
--- NOTE | 2021-08-05 09:15 | Physical Therapy Daily Note ---
PT Daily Note-Current Subjective Patient more alert and less confused on this date. Spouse present. Mental Status Patient Orientation: Person Attachments: Leyva Catheter, IV Transfers SCALE: Activities may be completed with or without assistive devices. 1-Aosdoywnev-nnnmfgj completes the activity by him/herself with no assistance from a helper. 5-Set-up or Clean-up Assistance-helper sets up or cleans up; patient completes activity. [place] assists only prior to or following the activity. 4-Supervision or Touching Assistance-helper provides verbal cues and/or touching/steadying and/or contact guard assistance as patient completes ac tivity. Assistance may be provided throughout the activity or intermittently. 3-Partial/Moderate Assistance-helper does LESS THAN HALF the effort. [place] lifts, holds or supports trunk or limbs, but provides less than half the effort. 2-Substantial/Maximal Assistance-helper does MORE THAN HALF the effort. [place] lifts or holds trunk or limbs and provides more than half the effort. 6-Isxfvwkpx-emzdny does ALL the effort. Patient does none of the effort to complete the activity. Or, the assistance of 2 or more helpers is required for the patient to complete the activity. If activity was not attempted, code reason: 7-Patient Refused. 9-Not Applicable-not attempted and the patient did not perform the activity before the current illness, exacerbation or injury. 10-Not Attempted due to Environmental Limitations-(lack of equipment, weather restraints, etc.). 88-Not Attempted due to Medical Conditions or Safety Concerns. Sit to Lying (QC): 3 Lying to Sitting/Side of Bed(Q: 3 Sit to Stand (QC): 3 Chair/How-nx-Atdiv Xfer(QC): 3 Patient stood to FWW x 8 min with weight shifting exercises Gait Training Distance: 10' Walk 10 feet (QC): 3 Gait Assistive Device: FWW slightly unsteady with self correct Exercises Standing: Weight shifts Assessment More alert today with improvement in mobility. Increase activity as patient tolerates. Patient up in recliner with chair alarm activated and spouse present. PT Teacher Counselor Goals Snf Goals PT Snf Goals Time Frame: Aug 23, 2021 Roll Left & Right (QC): 6 Sit to Lying (QC): 6 Lying-Sitting on Side/Bed(QC): 6 Sit to Stand (QC): 6 Chair/Xha-tc-Nqais Xfer(QC): 6 Toilet Transfer (QC): 6 Walk 10 feet (QC): 6 Walk 50ft with 2 Turns (QC): 6 Walk 150 ft (QC): 6 PT Plan Treatment/Plan Treatment Plan: Continue Plan of Care Treatment Plan: Bed Mobility, Education, Functional Activity Bree, Functional Strength, Gait, Safety, Therapeutic Exercise, Transfers Treatment Duration: Aug 23, 2021 Frequency: 6 times per week Estimated Hrs Per Day: .25 hour per day Time/GCodes Time In: 720 Time Out: 743 Total Billed Treatment Time: 23 Total Billed Treatment 1 visit FA x 2 23 min VANESA WHATLEY PT Aug 05, 2021 09:15
[2021-08-05 09:54] LABS: RETICULOCYTE % 1.93 % (0.50-2.40)
[2021-08-05] MEDS ORDERED: NITROGLYCERIN 0.4 MG SL TABS BTL 25'S SL PRN (10:15)
[2021-08-05] MEDS ORDERED: amLODIPine 5 MG (NORVASC) TAB PO ONE ×2 (10:30→20:30)
--- NOTE | 2021-08-05 10:59 | Progress Note ---
KEEGAN MARTINS MED STUDENT 08/05/21 1059: Subjective Date Seen by a Provider: Aug 05, 2021 Time Seen by a Provider: 07:30 Subjective/Events-last exam Margarette is sitting up in the chair this morning, awake and talking. She is requesting a coke. She is still unable to answer any direct questions. Unsure of year, month. Did remember her 's name today. mentioned that she previously had a uti about a month ago and was put on macrobid for that. Daughter would like an update, her name is Tiffanie Hardin MD, general surgeon, phone number: [phone]. Review of Systems Unable to obtain ROS due to clinical condition. Focused Exam Lactate Level 08/02/21 20:25: Lactic Acid Level 1.43 08/03/21 07:15: Lactic Acid Level 1.01 08/04/21 10:08: Lactic Acid Level 0.69 Time of Focused Exam: 22:16 Objective Exam Last Set of Vital Signs Vital Signs Date Time Temp Pulse Resp B/P (MAP) Pulse Ox O2 Delivery O2 Flow Rate FiO2 08/05/21 08:00 88 16 180/69 (106) 95 Room Air 08/05/21 08:00 37.0 Capillary Refill : Less Than 3 Seconds I&O Intake and Output 08/05/21 00:00 Intake Total 2665 ml Output Total 1850 ml Balance 815 ml Intake Oral 100 ml IV Total 2565 ml Output Urine Total 1850 ml General: Alert, Cooperative, No Acute Distress, Other (Disoriented ) HEENT: Atraumatic, EOMI, Mucous Memb Moist/[place] Neck: No LAD Lungs: Clear to Auscultation, Normal Air Movement Heart: Regular Rate, Normal S1, Normal S2, No Murmurs Abdomen: Normal Bowel Sounds, Soft Neuro: Other (Improved delirium ) Psych/Mental Status: Other (delirium ) Results Lab Laboratory Tests 08/04/21 10:57: Blood Gas Puncture Site RR, Blood Gas Patient Temperature 36.2, Arterial Blood pH 7.40, Arterial Blood Partial Pressure CO2 27L, Arterial Blood Partial Pressu re O2 91, Arterial Blood HCO3 16*L, Arterial Blood Total CO2 17.1L, Arterial Blood Oxygen Saturation 97, Arterial Blood Base Excess -7.8L, Surjit Test YES- POS, Blood Gas Ventilator Setting NO, Blood Gas Inspired Oxygen RA 08/04/21 17:11: Glucometer 87 08/05/21 04:54: White Blood Count 15.0H, Red Blood Count 2.38L, Hemoglobin 7.6L, Hematocrit 24L, Mean Corpuscular Volume 100H, Mean Corpuscular Hemoglobin 32, Mean Corpuscular Hemoglobin Concent 32, Red Cell Distribution Width 13.8, Platelet Count 257, Mean Platelet Volume 9.3, Immature Granulocyte % (Auto) 4, Neutrophils (%) (Auto) 77H, Lymphocytes (%) (Auto) 11L, Monocytes (%) (Auto) 7, Eosinophils (%) (Auto) 1, Basophils (%) (Auto) 0, Neutrophils # (Auto) 11.6H, Lymphocytes # (Auto) 1.6, Monocytes # (Auto) 1.0, Eosinophils # (Auto) 0.2, Basophils # (Auto) 0.1, Immature Granulocyte # (Auto) 0.6H, Absolute Reticulocyte Count 46, Percent Reticulocyte Count 1.93, Sodium Level 144, Potassium Level 3.4L, Chloride Level 117H, Carbon Dioxide Level 13L, Anion Gap 14, Blood Urea Nitrogen 16, Creatinine 0.83, Estimat Glomerular Filtration Rate 76, BUN/Creatinine Ratio 19, Glucose Level 76, Calcium Level 8.2L, Corrected Calcium 9.4, Total Bilirubin 1.3H, Aspartate Amino Transf (AST/SGOT) 23, Alanine Aminotransferase (ALT/SGPT) 21, Alkaline Phosphatase 87, Total Protein 5.2L, Albumin 2.5L 08/05/21 08:31: Glucometer 97 Microbiology 08/02/21 Blood Culture - Final, Complete Escherichia coli 08/02/21 Urine Culture - Preliminary, Resulted Escherichia coli Radiology No new imaging today. Assessment/Plan Assessment/Plan Assess & Plan/Chief Complaint CC: Delirium, gram negative bacteremia, sepsis A/P Sepsis Gram negative bacteremia, UTI etiology Delirium Volume depletion Sinus tachycardia DVT ppx Autoimmune connective tissue disease CAD HTN HLD Chronic cough - Pt will be moved to med/surg unit - continue meropenem - d/c vancomycin - bedside swallow assessment - IVF - Limited PO intake - urine and blood cultures positive for e. coli - Lovenox - appreciate cardiology Clinical Quality Measures Stroke: Date of last known well: Aug 02, 2021 Symptoms onset unknown: Yes KAUR TEE DO 08/06/21 0603: Subjective Subjective/Events-last exam Pt is still delirious but much improved and up in a chair talking with eyes open is at the bedside UTI being treated with broad spectrum of Meropenem and Vancomycin IV fluids still continued Transferring to 4th floor PT and OT will be ordered Review of Systems General: Fatigue, Malaise Neurological: Weakness Objective Exam General: Alert, Cooperative, Other (Disoriented ) Lungs: Clear to Auscultation Heart: Regular Rate Assessment/Plan Assessment/Plan Assess & Plan/Chief Complaint Assessment: IV antibiotics Transfer to fourth floor Monitor delirium IV fluids Supervisory-Addendum Brief Verification & Attestation Participated in pt care: history, MDM, physical Personally performed: exam, history, MDM, supervision of care Care discussed with: Medical Student Procedures: n/a Results interpretation: Verified all documentation Verification and Attestation of Medical Student E/M Service A medical student performed and documented this service in my presence. I reviewed and verified all information documented by the medical student and made modifications to such information, when appropriate. I personally performed the physical exam and medical decision making. Kaur Tee, Aug 06, 2021,06:02 KEEGAN MARTINS MED STUDENT Aug 05, 2021 10:59 KAUR TEE DO Aug 06, 2021 06:03
--- NOTE | 2021-08-05 11:40 | Occupational Ther Daily Note ---
OT Current Status-Daily Note Subjective Pt sitting in recliner upon arrival. Pt stated that she felt as if she couldn't move her arm. CHUN reassured her that it was because of her blood pressure cuff. Once blood pressure cuff was off, pt felt better about moving arm. Pt states that she is feeling hope and that she is feeling better than yesterday. Mental Status/Objective Patient Orientation: Confused Attachments: IV ADL-Treatment Pt performed oral hygiene at set up assistance. At first, pt was slow to grab toothbrush, but after taking toothbrush, pt was able to perform oral hygiene. Pt was able to clean face with set up assistance and therapist washed hair with shower cap. Therapy Code Descriptions/Definitions Functional [place] Measure: 0=Not Assessed/NA 4=Minimal Assistance 1=Total Assistance 5=Supervision or Setup 2=Maximal Assistance 6=Modified [place] 3=Moderate Assistance 7=Complete IndependenceSCALE: Activities may be completed with or without assistive devices. 5-Wahngffjtv-rnfrbzl completes the activity by him/herself with no assistance from a helper. 5-Set-up or Clean-up Assistance-helper sets up or cleans up; patient completes activity. [place] assists only prior to or following the activity. 4-Supervision or Touching Assistance-helper provides verbal cues and/or touching/steadying and/or contact guard assistance as patient completes activity. Assistance may be provided throughout the activity or intermittently. 3-Partial/Moderate Assistance-helper does LESS THAN HALF the effort. [place] lifts, holds or supports trunk or limbs, but provides less than half the effort. 2-Substantial/Maximal Assistance-helper does MORE THAN HALF the effort. [place] lifts or holds trunk or limbs and provides more than half the effort. 2-Jczdoxmyq-jvkdms does ALL the effort. Patient does none of the effort to complete the activity. Or, the assistance of 2 or more helpers is required for the patient to complete the activity. If activity was not attempted, code reason: 7-Patient Refused. 9-Not Applicable-not attempted and the patient did not perform the activity before the current illness, exacerbation or injury. 10-Not Attempted due to Environmental Limitations-(lack of equipment, weather restraints, etc.). 88-Not Attempted due to Medical Conditions or Safety Concerns. Oral Hygiene (QC): 5 (Set up assistance) All needs met, call light in hand with nursing in room. Pt is moving to 422. OT [employer] Instructor Goals [facility] Goals Time Frame: Aug 25, 2021 Eating (QC): 4 Oral Hygiene (QC): 4 Toileting Hygiene (QC): 4 Shower/Bathe Self (QC): 4 Upper Body Dressing (QC): 4 Lower Body Dressing (QC): 4 On/Off Footwear (QC): 4 1=Demonstrate adherence to instructed precautions during ADL tasks. 2=Patient will verbalize/demonstrate understanding of assistive devices/modifications for ADL. 3=Patient will improve strength/tolerance for activity to enable patient to perform ADL's. OT Education/Plan Problem List/Assessment Assessment: Decreased Activ Tolerance, Impaired Cognition, Impaired Coordination, Impaired I ADL's, Impaired Self-Care Skills Discharge Recommendations Plan/Recommendations: Continue POC Treatment Plan/Plan of Care Patient would benefit from OT for education, treatment and training to promote independence in ADL's, mobility, safety and/or upper extremity function for ADL's. Plan of Care: ADL Retraining, Cognitive Retraining, Functional Mobility, Group Exercise/Act as Ind, UE Funct Exercise/Act Treatment Duration: Aug 25, 2021 Frequency: 3 times per week (3-5x/week) Estimated Hrs Per Day: .25 hour per day Agreement: Yes Rehab Potential: Guarded Time/GCodes Start Time: 11:19 Stop Time: 11:33 Total Time Billed (hr/min): 14 Billed Treatment Time 1 visit 1, ADL (14) MARKIE SHEFFIELD Aug 05, 2021 11:40
[2021-08-05] MEDS: BACLOFEN 10 MG (LIORESAL) TAB PO SCH ×2 (12:36→19:51)
[2021-08-05] MEDS: GABAPENTIN 600 MG (NEURONTIN) TAB PO SCH ×2 (12:36→19:52)
--- NOTE | 2021-08-05 13:52 | Progress Note - Cardiology ---
Cardiology SOAP Progress Note Subjective: No cp or palp or syncope or shortness of breath Does not report any symptoms Objective: I&O/Vital Signs 08/05/21 08/05/21 08/05/21 08/05/21 03:46 04:00 07:00 08:00 Temp 37.0 Pulse 81 84 Resp 28 B/P (MAP) 165/53 (90) Pulse Ox 96 95 O2 Delivery Room Air Room Air 08/05/21 08/05/21 08/05/21 08/05/21 08:00 08:00 11:46 12:04 Temp 36.7 Pulse 88 82 Resp 16 18 B/P (MAP) 180/69 (106) 172/72 (105) Pulse Ox 96 95 96 99 O2 Delivery Room Air Room Air Room Air Room Air 08/05/21 12:09 Pulse Ox 96 O2 Delivery Room Air 08/05/21 00:00 Intake Total 1515 ml Output Total 1275 ml Balance 240 ml Weight (Pounds): 175 Weight (Ounces): 0.0 Weight (Calculated Kilograms): 79.027719 Constitutional: No AAO x 3; well-developed, well-nourished, other (Oriented to person and place today, responds appropriately) Respiratory: No accessory muscle use, No respiratory distress; chest expansion is symmetric, chest is bilaterally symmetric, lungs clear to auscultation Cardiovascular: regular rate-rhythm Gastrointestional: No tender; soft; No guarding; audible bowel sounds Extremities: no lower extremity edema bilateral Neurologic/Psychiatric: No oriented x 3; other (moves extremities) Skin: pallor; No rash on exposed areas, No ulcerations on exposed areas Results/Procedures: Labs Laboratory Tests 08/04/21 17:11: Glucometer 87 08/05/21 04:54: White Blood Count 15.0H, Red Blood Count 2.38L, Hemoglobin 7.6L, Hematocrit 24L, Mean Corpuscular Volume 100H, Mean Corpuscular Hemoglobin 32, Mean Corpuscular Hemoglobin Concent 32, Red Cell Distribution Width 13.8, Platelet Count 257, Mean Platelet Volume 9.3, Immature Granulocyte % (Auto) 4, Neutrophils (%) (Aut o) 77H, Lymphocytes (%) (Auto) 11L, Monocytes (%) (Auto) 7, Eosinophils (%) (Auto) 1, Basophils (%) (Auto) 0, Neutrophils # (Auto) 11.6H, Lymphocytes # (Auto) 1.6, Monocytes # (Auto) 1.0, Eosinophils # (Auto) 0.2, Basophils # (Auto) 0.1, Immature Granulocyte # (Auto) 0.6H, Absolute Reticulocyte Count 46, Percent Reticulocyte Count 1.93, Sodium Level 144, Potassium Level 3.4L, Chloride Level 117H, Carbon Dioxide Level 13L, Anion Gap 14, Blood Urea Nitrogen 16, Creatinine 0.83, Estimat Glomerular Filtration Rate 76, BUN/Creatinine Ratio 19, Glucose Level 76, Calcium Level 8.2L, Corrected Calcium 9.4, Total Bilirubin 1.3H, Aspartate Amino Transf (AST/SGOT) 23, Alanine Aminotransferase (ALT/SGPT) 21, Alkaline Phosphatase 87, Total Protein 5.2L, Albumin 2.5L 08/05/21 08:31: Glucometer 97 08/05/21 12:10: Glucometer 78 Microbiology 08/04/21 Urine Culture - Final, Complete NO GROWTH 08/02/21 Blood Culture - Final, Complete Escherichia coli Laboratory Tests 08/04/21 04:26 08/05/21 04:54 A/P: Assessment: UTI with sepsis and delirium, improving Sinus tachycardia - likely secondary to sepsis, improving Recent (May 2020) rash that has been ascribed to amlodipine by her monument carver H/o mild, chronic diastolic CHF, none currently CAD. Card cath of 01/10/19: patent stent (done in [place], [place] in 2006) in the ostial/prox RCA, no significant CAD, LVEF 65%, elevated LVEDP, no renal artery stenosis Labile hypertension and white-coat hypertension Hospitalization in October 2018 with shortness of breath - multi-factorial likely r/t pneumonia/bronchitis and/or acute on chronic diastolic CHF - clinically improved Echocardiogram of May 10, 2018 showed LVEF 60-65%. Mild MR and AoR. PASP 30-35 mmHg Hypertension (Losartan dc'd and changed to Lisinopril on 05-13-18 d/t medication packaging line attendant recall d/t contaminant) Intolerant to doxazosin d/t profound dizziness Hyperlipidemia being treated with statin therapy - followed by her PCP Bipolar disorder Arthritis of unknown type for which she takes Plaquenil and sulfasalazine, followed Dr Lazaro (her pipe stem repairer at [facility]) Elevated body mass index of approx 29 IBS for which she takes Bentyl PFT's from 08-16-2013 showed spirometry WNL. Lung volumes WNL, diffusion capacity WNL Carotid u/s from 05-31-15 showed less than 40% R ICA stenosis and approx 60% L ICA stenosis for which she is following with Dr. Lechuga Bilateral leg swelling, likely related to venous insuff Chronic gen fatigue. TSH normal on 03/30/17 (3.11) H/o anemia, followed and treated by her pcp Dr Tee Multiple medication intolerances Plan: UTI with delirium is being managed by the Medical services Sinus tachycardia - likely d/t sepsis - d/t inability to follow commands and swallow she is currently receiving IV BB, Hydralazine and Clonidine patch - adjust dose as tolerated, indicated Resume ASA. Change beta-dwaine to oral Replace electrolytes and monitor labs Anemia of undetermined etiology - management per medical/eICU services Clinical Quality Measures Stroke: Date of last known well: Aug 02, 2021 Symptoms onset unknown: Yes CHAVEZ LR MD FACP FAC CCDS Aug 05, 2021 13:52
--- NOTE | 2021-08-05 13:56 | ST Dysphagia Evaluation ---
Speech Evaluation-General Medical Diagnosis Delirium/Sepsis/UTI Onset Date: Aug 02, 2021 Therapy Diagnosis Therapy Diagnosis: Oropharyngeal Dysphagia Precautions Precautions: Fall, Aspiration Precautions/Isolations: Aspiration, Fall Prevention, Standard Precautions Referral Referring Physician: Dr. Connor Kapadia Reason for Referral: Evaluation/Treatment Medical History Pertinent Medical History: Arthritis, CAD, Heart Failure, HTN Current History The patient is a 70 year-old female with a past medical history of HTN and CAD, who presented to [facility] with altered mental status. CXR: 08/04/2021: Mild central congestion. Reviewed History: Yes Social History Current Living Status: Spouse Speech PLF/Current-Dysphagia Prior Level of Function The patient was consuming a regular diet with thin liquids prior to hospitalization. The patient was unable to provide consistent past medical history to the clinician secondary to her current state of confusion. Subjective The patient was seated upright in the recliner, awake and alert upon entrance to her room by the clinician. The patient greeted the clinician and initially politely declined the evaluation. Per patient, "I'd like to sit here and eat my ice." The clinician provided the rationale for the visit and provided verbal encouragement. The patient agreed to participate with frequent and consistent redirection to task provided. The patient remains confused on this date, frequently displaying tangential thought processes. Cognitive Status Patient Orientation: Confused Oral Motor Skills Dentition: Natural Ability to Follow Directions: Fair Oral Expression Ability: Moderate Impairment Voice Voice Phonatory-Based Quality: Normal Voice Pitch: Normal Voice Loudness: Normal Face Facial Symmetry: Symmetrical Oral-Facial Assessment Oral-Facial Dentition: Normal Labial Seal Description: Normal Smile: Normal Lingual Protrusion: Normal Lingual ROM: Normal Lingual Strength: Normal Volitional Dry Swallow: Yes Voluntary Cough: No Can Clear Throat Volitionally: No Productive Cough: Yes Productive Throat Clear: Yes Dysphagia Evaluation Consistencies Presented: Regular (The patient consumes three bites of a solid (cracker) prior to politely refusing additional trials of solid consistency.), Thin Liquid (Via can edge.), [place] Thick Liquid (via Straw.), Pureed (The patient required maximum encouragement for one teaspoon of puree. The patient politely refused additional trials by this clinian of puree.) The patient demonstrated prolonged bolus formation, with decreased lingual and oral coordination (with a jerky type movement). Anterior oral spillage was not present. Pharyngeal Phase: Clears Throat The patient was provided the following trials: - Thin liquid via can edge: The patient demonstrated two episodes of suspected aspiration with thin liquid via can edge, displaying an immediate, rigorous cough and red face following the swallow. - [place]-thick liquid via straw: No s/s of suspected aspiration were demonstrated with nectar-thick liquids via straw. - Puree: No s/s of suspected aspiration were demonstrated with limited trials of puree. - Solid: No s/s of suspected aspiration were demonstrated with limited trials of solid. Funct. Velo/Pharyngeal Symptom: Clears Throat, Cough After Swallow Dietary Recommendations: Mechanical Soft Liquid Recommendations: [place] Consistancy - Dysphagia three consistency diet with NECTAR-THICK liquids, as tolerated. - Fully upright and alert for PO intake. - Meal set up and feeding assistance, as necessary. - Small, single bites and sips. - Monitor for s/s of suspected aspiration with PO intake. If demonstrated, contact speech pathology. - Speech pathology to monitor for diet tolerance and advancement two times per week. The results and recommendations were discussed with the patient and the RN immediately following completion of the evaluation. Dysphagia Evaluation Summary The patient demonstrated oropharyngeal dysphagia characterized by reduced lingu al and oral coordination as well as poor airway protection in the presence of bolus material. Please see above for specific details. Barriers to Learning Confusion. Speech Short Term Goals Short Term Goals Short Term Goals 1. The patient will demonstrate safe swallowing procedures with 90% accuracy, independently. Time Frame-STG: Four Days. Speech Retirement Goals Retirement Goals 1. The patient will tolerate the least restrictive diet consistency without s/s of suspected aspiration. Time Frame: One Week. Speech-Plan Treatment Plan Speech Therapy Treatment Plan: Continue Plan of Care Treatment Duration: Aug 12, 2021 Frequency: 2 times per week Estimated Hrs Per Day: .25 hour per day Rehab Potential: Guarded Pt/Family Agrees to Plan: Yes Safety Risks/Education Teaching Recipient: Patient Teaching Methods: Discussion Response to Teaching: Unable to Comprehend (Confusion.) Education Topics Provided: Results, Recommendations, Safe Swallowing Strategies Time Speech Therapy Time In: 13:20 Speech Therapy Time Out: 13:40 Total Billed Time: 20 Billed Treatment Time 1, DYSEVS, DYST GUILLE Killian Aug 05, 2021 13:55
[2021-08-05] MEDS: hydrALAZINE (APRESOLINE) 25 MG TAB PO PRN ×2 (14:49→23:18)
[2021-08-05] MEDS: SIMvastatin 10 MG (ZOCOR) TAB PO SCH (19:52)
[2021-08-05] MEDS: ACETAMINOPHEN 325 MG TABLET PO PRN (19:52)
[2021-08-05] MEDS: sulfaSALAzine 500 MG (AZULFIDINE) TAB PO SCH (19:52)
[2021-08-05] MEDS ORDERED: OLANZapine 5 MG (ZyPREXA) TAB PO PRN (20:30)
[2021-08-05] MEDS ORDERED: amLODIPine 5 MG (NORVASC) TAB ONE (20:41)
[2021-08-05] MEDS ORDERED: SIMvastatin 20 MG (ZOCOR) TAB PO SCH (21:00)
[2021-08-06 03:09] VITALS: BP 156/68
[2021-08-06] MEDS: MEROPENEM 500 MG/NS 100 ML IVPB IV SCH ×4 (03:09→10:29)
[2021-08-06 05:51] LABS: BASOPHILS # (AUTO) 0.1 10^3/uL (0.0-0.1); BASOPHILS % (AUTO) 1 % (0-10); EOSINOPHILS # (AUTO) 0.4 10^3/uL (0.0-0.3); EOSINOPHILS % (AUTO) 3 % (0-10); HEMATOCRIT 29 % (35-52); HEMOGLOBIN 9.3 g/dL (11.5-16.0); LYMPHOCYTES # (AUTO) 0.9 10^3/uL (1.0-4.0); LYMPHOCYTES % (AUTO) 6 % (12-44); MEAN CORPUSCULAR HEMOGLOBIN 31 pg (25-34); MEAN CORPUSCULAR HGB CONC 32 g/dL (32-36); MEAN CORPUSCULAR VOLUME 97 fL (80-99); MEAN PLATELET VOLUME 9.2 fL (9.0-12.2); MONOCYTES # (AUTO) 1.4 10^3/uL (0.0-1.0); MONOCYTES % (AUTO) 9 % (0-12); NEUTROPHILS # (AUTO) 12.2 10^3/uL (1.8-7.8); NEUTROPHILS % (AUTO) 79 % (42-75); PLATELET COUNT 359 10^3/uL (130-400); WHITE BLOOD COUNT 15.4 10^3/uL (4.3-11.0)
[2021-08-06 06:04] LABS: ALBUMIN 2.9 GM/DL (3.2-4.5); POTASSIUM 3.6 MMOL/L (3.6-5.0)
[2021-08-06 06:05] LABS: CALCIUM 8.5 MG/DL (8.5-10.1)
[2021-08-06 06:07] LABS: TOTAL PROTEIN 6.3 GM/DL (6.4-8.2)
[2021-08-06 06:08] LABS: BILIRUBIN,TOTAL 1.1 MG/DL (0.1-1.0)
[2021-08-06 06:10] LABS: CREATININE SERUM 0.91 MG/DL (0.60-1.30)
[2021-08-06 07:32] VITALS: BP 150/72
[2021-08-06] MEDS: ACETAMINOPHEN 325 MG TABLET PO PRN (07:36)
[2021-08-06] MEDS: SENNOSIDES 8.6 MG (SENOKOT) TAB PO SCH (08:35)
[2021-08-06] MEDS: GABAPENTIN 600 MG (NEURONTIN) TAB PO SCH ×2 (08:35→12:04)
[2021-08-06] MEDS: DOCUSATE SODIUM 100 MG (COLACE) CAP PO SCH (08:35)
[2021-08-06] MEDS: meTOproloL SUCCINATE 50 MG (TOPROL XL) TAB PO SCH (08:35)
[2021-08-06] MEDS: ENOXAPARIN 40 MG/0.4 ML (LOVENOX) SYR SC SCH (08:36)
[2021-08-06] MEDS: BACLOFEN 10 MG (LIORESAL) TAB PO SCH ×2 (08:36→12:04)
[2021-08-06] MEDS: FAMOTIDINE 20 MG (PEPCID) TABLET PO SCH (08:36)
[2021-08-06] MEDS: sulfaSALAzine 500 MG (AZULFIDINE) TAB PO SCH (08:36)
[2021-08-06] MEDS: ASPIRIN E.C. 81 MG (ECOTRIN) TAB PO SCH (08:36)
[2021-08-06] MEDS ORDERED: amLODIPine 5 MG (NORVASC) TAB PO SCH (09:00)
[2021-08-06] MEDS ORDERED: LOSARTAN 100 MG (COZAAR) TABLET PO SCH (09:00)
[2021-08-06] MEDS ORDERED: PANTOPRAZOLE 40 MG (PROTONIX) TAB PO SCH (09:00)
--- NOTE | 2021-08-06 11:33 | Discharge Summary ---
Diagnosis/Chief Complaint Date of Admission Aug 02, 2021 at 22:18 Date of Discharge Discharge Date: Aug 06, 2021 Discharge Diagnosis CC: Delirium, gram negative bacteremia, sepsis A/P Sepsis Gram negative bacteremia, UTI etiology Delirium Volume depletion Sinus tachycardia DVT ppx Autoimmune connective tissue disease CAD HTN HLD Chronic cough - Pt will be moved to med/surg unit - continue meropenem - d/c vancomycin - bedside swallow assessment - IVF - Limited PO intake - urine and blood cultures positive for e. coli - Lovenox - appreciate cardiology Discharge Summary Discharge Physical Examination Allergies: Coded Allergies: celecoxib (Verified Allergy, Severe, TAKES ASPIRIN AT HOME, 10/19/18) SOA penicillin G (Verified Allergy, Mild, 10/19/18) HIVES divalproex sodium (Verified Allergy, Unknown, 10/19/18) JOINT PAIN, "GUMS BECOME LOSE AROUND TEETH" meperidine (Verified Allergy, Unknown, 10/19/18) LOSES CONTROL OF HANDS AND ARMS morphine (Verified Allergy, Unknown, 10/19/18) FLU LIKE SYMPTOMS ofloxacin (Verified Allergy, Unknown, 10/19/18) TACHYCARDIA promethazine (Verified Allergy, Unknown, 05/28/08) propoxyphene (Verified Allergy, Unknown, 10/19/18) LOSES CONTROL OF HANDS AND ARMS telavancin (Unverified Adverse Reaction, Severe, 10/19/18) SUICIDAL lamotrigine (Unverified Adverse Reaction, Intermediate, BODY JERKS, 10/19/18) SUICIDAL amitriptyline (Verified Adverse Reaction, Mild, 10/19/18) LOSES CONTROL OF HANDS AND ARMS azithromycin (Verified Adverse Reaction, Mild, 10/19/18) FLU LIKE SYMPTOMS erythromycin base (Verified Adverse Reaction, Mild, 10/19/18) NAUSEA, VOMITING promethazine HCl (Unverified Adverse Reaction, Mild, 10/19/18) HALLUCINATIONS Vitals & I&Os Vital Signs Date Time Temp Pulse Resp B/P (MAP) Pulse Ox O2 Delivery O2 Flow Rate FiO2 08/06/21 11:50 36.7 80 18 112/67 (82) 96 Room Air General Appearance: Alert, Cooperative, Other (Continued subtle confusion) Respiratory: Clear to Auscultation Cardiovascular: Regular Rate Hospital Course Was the Problem List Reviewed?: Yes Hospital Course: Miss Pfeiffer is a 70 yo F, a clinic patient of Dr. Melchor, who presented to the ED in a delirious state. She had gone on a trip and was not taking her medications as prescribed. She was admitted to the ICU for sepsis with urinary tract infection, and placed on IV antibiotics. Initially, she was unable to respond to questions, open her eyes when spoken to, or respond appropriately. Her case was being followed cardiology due to her history of diastolic CHF and CAD. With the IV fluids and the IV antibiotics, she continued to improve each day and was able to be transferred out of the ICU. As of today, her delirium is much improved, she is sitting comfortably in the chair, eating breakfast without issue and able to answer questions slowly, but appropriately. PT and OT consults indicated that she would benefit from inpatient rehabilitation. At this time, Margarette is safe a stable to be discharged to the acute rehab unit. KEEGAN M[employer] STUDENT Labs (last 24 hrs) Laboratory Tests 08/02/21 20:25: White Blood Count 18.3H, Red Blood Count 2.99L, Hemoglobin 9.5L, Hematocrit 28L, Mean Corpuscular Volume 94, Mean Corpuscular Hemoglobin 32, Mean Corpuscular Hemoglobin Concent 34, Red Cell Distribution Width 12.5, Platelet Count 225, Mean Platelet Volume 9.9, Immature Granulocyte % (Auto) 1, Neutrophils (%) (Auto ) 85H, Lymphocytes (%) (Auto) 3L, Monocytes (%) (Auto) 11, Eosinophils (%) (Auto) 0, Basophils (%) (Auto) 0, Neutrophils # (Auto) 15.5H, Lymphocytes # (Auto) 0.6L, Monocytes # (Auto) 2.0H, Eosinophils # (Auto) 0.0, Basophils # (Auto) 0.0, Immature Granulocyte # (Auto) 0.2H, Neutrophils % (Manual) 88, Lymphocytes % (Manual) 4, Monocytes % (Manual) 8, Blood Morphology Comment NORMAL, Prothrombin Time 18.2H, INR Comment 1.5H, Activated Partial Thromboplast Time 36H, D-Dimer 1.92H, Sodium Level 131L, Potassium Level 3.7, Chloride Level 96L, Carbon Dioxide Level 19L, Anion Gap 16H, Blood Urea Nitrogen 19H, Creatinine 1.36H, Estimat Glomerular Filtration Rate 42, BUN/Creatinine Ratio 14, Glucose Level 118H, Lactic Acid Level 1.43, Calcium Level 9.0, Corrected Calcium 9.4, Total Bilirubin 1.8H, Aspartate Amino Transf (AST/SGOT) 45H, Alanine Aminotransferase (ALT/SGPT) 27, Alkaline Phosphatase 87, Troponin I < 0.028, C-Reactive Protein High Sensitivity 21.87H, Total Protein 6.4, Albumin 3.5, Procalcitonin 0.67H, Serum Alcohol < 10 08/02/21 20:32: Influenza Type A (RT-PCR) Not Detected, Influenza Type B (RT-PCR) Not Detected, SARS-CoV-2 RNA (RT-PCR) Not Detected 08/02/21 20:33: Urine Color AMBERH, Urine Clarity CLEAR, Urine pH 5.5, Urine Specific [place] 1.025H, Urine Protein 2+H, Urine Glucose (UA) NEGATIVE, Urine Ketones TRACEH, Urine Nitrite NEGATIVE, Urine Bilirubin 2+H, Urine Urobilinogen 0.2, Urine Leukocyte Esterase 3+H, Urine RBC (Auto) 3+H, Urine RBC 2-5H, Urine WBC 25-50H, Urine Squamous Epithelial Cells NONE, Urine Renal Epithelial Cells NONE, Urine Crystals NONE, Urine Bacteria LARGEH, Urine Casts NONE, Urine Mucus NEGATIVE, Urine Culture Indicated CULTURE PENDING, Urine Opiates Screen NEGATIVE, Urine Oxycodone Screen NEGATIVE, Urine Methadone Screen NEGATIVE, Urine Propoxyphene Screen NEGATIVE, Urine Barbiturates Screen NEGATIVE, Ur Tricyclic Antidepressants Screen NEGATIVE, Urine Phencyclidine Screen NEGATIVE, Urine Amphetamines Screen NEGATIVE, Urine Methamphetamines Screen NEGATIVE, Urine Benzodiazepines Screen NEGATIVE, Urine Cocaine Screen NEGATIVE, Urine Cannabinoids Screen NEGATIVE 08/02/21 20:36: Glucometer 113H 08/02/21 21:00: Blood Gas Puncture Site LEFT RADIAL, Blood Gas Patient Temperature 37.9, Arter ial Blood pH 7.50H, Arterial Blood Partial Pressure CO2 28L, Arterial Blood Partial Pressure O2 106H, Arterial Blood HCO3 21L, Arterial Blood Total CO2 22.1, Arterial Blood Oxygen Saturation 98, Arterial Blood Base Excess -1.4, Surjit Test YES-POS, Blood Gas Ventilator Setting NO, Blood Gas Inspired Oxygen ROOM AIR 08/02/21 22:40: Ammonia 14 08/03/21 04:47: White Blood Count 21.8H, Red Blood Count 2.70L, Hemoglobin 8.6L, Hematocrit 26L, Mean Corpuscular Volume 96, Mean Corpuscular Hemoglobin 32, Mean Corpuscular Hemoglobin Concent 33, Red Cell Distribution Width 12.8, Platelet Count 213, Mean Platelet Volume 9.9, Immature Granulocyte % (Auto) 1, Neutrophils (%) (Auto) 86H, Lymphocytes (%) (Auto) 2L, Monocytes (%) (Auto) 10, Eosinophils (%) (Auto) 0, Basophils (%) (Auto) 0, Neutrophils # (Auto) 18.7H, Lymphocytes # (Auto) 0.5L, Monocytes # (Auto) 2.3H, Eosinophils # (Auto) 0.0, Basophils # (Auto) 0.1, Immature Granulocyte # (Auto) 0.3H, Sodium Level 134L, Potassium Level 3.6, Chloride Level 104, Carbon Dioxide Level 17L, Anion Gap 13, Blood Urea Nitrogen 19H, Creatinine 1.22, Estimat Glomerular Filtration Rate 48, BUN/Creatinine Ratio 16, Glucose Level 124H, Calcium Level 8.3L, Corrected Calcium 9.1, Total Bilirubin 1.7H, Aspartate Amino Transf (AST/SGOT) 47H, Alanine Aminotransferase (ALT/SGPT) 27, Alkaline Phosphatase 114, Total Protein 5.4L, Albumin 3.0L, Triglycerides Level 61, Cholesterol Level 91, LDL C holesterol Direct 52, VLDL Cholesterol 12, HDL Cholesterol 25L, Procalcitonin 2.04H 08/03/21 07:15: Lactic Acid Level 1.01 08/04/21 04:26: White Blood Count 16.2H, Red Blood Count 2.47L, Hemoglobin 7.9L, Hematocrit 24L, Mean Corpuscular Volume 97, Mean Corpuscular Hemoglobin 32, Mean Corpuscular Hemoglobin Concent 33, Red Cell Distribution Width 13.3, Platelet Count 221, Mean Platelet Volume 9.3, Immature Granulocyte % (Auto) 2, Neutrophils (%) (Auto) 78H, Lymphocytes (%) (Auto) 9L, Monocytes (%) (Auto) 10, Eosinophils (%) (Auto) 0, Basophils (%) (Auto) 0, Neutrophils # (Auto) 12.7H, Lymphocytes # (Auto) 1.5, Monocytes # (Auto) 1.7H, Eosinophils # (Auto) 0.0, Basophils # (Auto) 0.0, Immature Granulocyte # (Auto) 0.3H, Sodium Level 137, Potassium Level 3.6, Chloride Level 111H, Carbon Dioxide Level 14L, Anion Gap 12, Blood Urea Nitrogen 17, Creatinine 0.93, Estimat Glomerular Filtration Rate 67, BUN/Creatinine Ratio 18, Glucose Level 101, Calcium Level 7.9L, Corrected Calcium 9.0, Total Bilirubin 1.6H, Aspartate Amino Transf (AST/SGOT) 32, Alanine Aminotransferase (ALT/SGPT) 25, Alkaline Phosphatase 100, Total Protein 5.0L, Albumin 2.6L, Procalcitonin 2.47H 08/04/21 10:08: Lactic Acid Level 0.69 08/04/21 10:50: Urine Color YELLOW, Urine Clarity CLEAR, Urine pH 6.0, Urine Specific [place] 1.020, Urine Protein NEGATIVE, Urine Glucose (UA) NEGATIVE, Urine Ketones TRACEH , Urine Nitrite NEGATIVE, Urine Bilirubin NEGATIVE, Urine Urobilinogen 0.2, Urine Leukocyte Esterase 1+H, Urine RBC (Auto) 1+H, Urine RBC 0-2, Urine WBC 2- 5, Urine Squamous Epithelial Cells 0-2, Urine Crystals NONE, Urine Bacteria TRACE, Urine Casts NONE, Urine Mucus NEGATIVE, Urine Culture Indicated YES 08/04/21 10:57: Blood Gas Puncture Site RR, Blood Gas Patient Temperature 36.2, Arterial Blood pH 7.40, Arterial Blood Partial Pressure CO2 27L, Arterial Blood Partial Pressure O2 91, Arterial Blood HCO3 16*L, Arterial Blood Total CO2 17.1L, Arterial Blood Oxygen Saturation 97, Arterial Blood Base Excess -7.8L, Surjit Test YES-POS, Blood Gas Ventilator Setting NO, Blood Gas Inspired Oxygen RA 08/04/21 17:11: Glucometer 87 08/05/21 04:54: White Blood Count 15.0H, Red Blood Count 2.38L, Hemoglobin 7.6L, Hematocrit 24L, Mean Corpuscular Volume 100H, Mean Corpuscular Hemoglobin 32, Mean Corpuscular Hemoglobin Concent 32, Red Cell Distribution Width 13.8, Platelet Count 257, Mean Platelet Volume 9.3, Immature Granulocyte % (Auto) 4, Neutrophils (%) (Auto) 77H, Lymphocytes (%) (Auto) 11L, Monocytes (%) (Auto) 7, Eosinophils (%) (Auto) 1, Basophils (%) (Auto) 0, Neutrophils # (Auto) 11.6H, Lymphocytes # (Auto) 1.6, Monocytes # (Auto) 1.0, Eosinophils # (Auto) 0.2, Basophils # (Auto) 0.1, Immature Granulocyte # (Auto) 0.6H, Absolute Reticulocyte Count 46, Percent Reticulocyte Count 1.93, Sodium Level 144, Potassium Level 3.4L, Chloride Level 117H, Carbon Dioxide Level 13L, Anion Gap 14, Blood Urea Nitrogen 16, Creatinine 0.83, Estimat Glomerular Filtration Rate 76, BUN/Creatinine Ratio 19, Glucose Level 76, Calcium Level 8.2L, Corrected Calcium 9.4, Iron Level 53, Total Bilirubin 1.3H, Aspartate Amino Transf (AST/SGOT) 23, Alanine Aminotransferase (ALT/SGPT) 21, Alkaline Phosphatase 87, Total Protein 5.2L, Albumin 2.5L, Vitamin B12 Level 844 08/05/21 08:31: Glucometer 97 08/05/21 12:10: Glucometer 78 08/06/21 05:15: White Blood Count 15.4H, Red Blood Count 2.97L, Hemoglobin 9.3#L, Hematocrit 29L , Mean Corpuscular Volume 97, Mean Corpuscular Hemoglobin 31, Mean Corpuscular Hemoglobin Concent 32, Red Cell Distribution Width 14.0, Platelet Count 359, Mean Platelet Volume 9.2, Immature Granulocyte % (Auto) 3, Neutrophils (%) (Auto) 79H, Lymphocytes (%) (Auto) 6L, Monocytes (%) (Auto) 9, Eosinophils (%) (Auto) 3, Basophils (%) (Auto) 1, Neutrophils # (Auto) 12.2H, Lymphocytes # (Auto) 0.9L, Monocytes # (Auto) 1.4H, Eosinophils # (Auto) 0.4H, Basophils # (Auto) 0.1, Immature Granulocyte # (Auto) 0.5H, Sodium Level 137, Potassium Level 3.6, Chloride Level 109H, Carbon Dioxide Level 15L, Anion Gap 13, Blood Urea Nitrogen 14, Creatinine 0.91, Estimat Glomerular Filtration Rate 68, BUN/Creatinine Ratio 15, Glucose Level 102, Calcium Level 8.5, Corrected Calcium 9.4, Total Bilirubin 1.1H, Aspartate Amino Transf (AST/SGOT) 24, Alanine Amino transferase (ALT/SGPT) 22, Alkaline Phosphatase 84, Total Protein 6.3L, Albumin 2.9L Microbiology 08/04/21 Urine Culture - Final, Complete NO GROWTH 08/04/21 Blood Culture - Preliminary, Resulted Staph, Coag Neg ([employer]) Pending Labs Microbiology Date/Time Source Procedure Growth Status 08/04/21 10:50 Urine U Cath,Nos Urine Culture - Final NO GROWTH Complete 08/04/21 10:44 Peripheral Lt Ac Blood Culture - Preliminary Staph, Coag Neg ([employer]) Resulted 08/04/21 10:00 Peripheral Lt Ac Blood Culture - Preliminary No growth Resulted 08/02/21 21:15 Peripheral Lt Ac Blood Culture - Final Escherichia coli Complete 08/02/21 20:33 Urine Leyva Cath Urine Culture - Final Escherichia coli Complete 08/02/21 20:25 Peripheral Lt Ac Blood Culture - Final Escherichia coli Complete Laboratory Tests 08/02/21 20:25: White Blood Count 18.3, Red Blood Count 2.99, Hemoglobin 9.5, Hematocrit 28, Mean Corpuscular Volume 94, Mean Corpuscular Hemoglobin 32, Mean Corpuscular Hemoglobin Concent 34, Red Cell Distribution Width 12.5, Platelet Count 225, Mean Platelet Volume 9.9, Immature Granulocyte % (Auto) 1, Neutrophils (%) (Auto) 85, Lymphocytes (%) (Auto) 3, Monocytes (%) (Auto) 11, Eosinophils (%) (Auto) 0, Basophils (%) (Auto) 0, Neutrophils # (Auto) 15.5, Lymphocytes # (Auto) 0.6, Monocytes # (Auto) 2.0, Eosinophils # (Auto) 0.0, Basophils # (Auto) 0.0, Immature Granulocyte # (Auto) 0.2, Neutrophils % (Manual) 88, Lymphocytes % (Manual) 4, Monocytes % (Manual) 8, Blood Morphology Comment NORMAL, Prothrombin Time 18.2, INR Comment 1.5, Activated Partial Thromboplast Time 36, D-Dimer 1.92, Sodium Level 131, Potassium Level 3.7, Chloride Level 96, Carbon Dioxide Level 19, Anion Gap 16, Blood Urea Nitrogen 19, Creatinine 1.36, Estimat Glomerular Filtration Rate 42, BUN/Creatinine Ratio 14, Glucose Level 118, Lactic Acid Level 1.43, Calcium Level 9.0, Corrected Calcium 9.4, Total Bilirubin 1.8, Aspartate Amino Transf (AST/SGOT) 45, Alanine Aminotransferase (ALT/SGPT) 27, Alkaline Phosphatase 87, Troponin I < 0.028, C-Reactive Protein High Sensitivity 21.87, Total Protein 6.4, Albumin 3.5, Procalcitonin 0.67, Serum Alcohol < 10 08/02/21 20:32: Influenza Type A (RT-PCR) Not Detected, Influenza Type B (RT-PCR) Not Detected, SARS-CoV-2 RNA (RT-PCR) Not Detected 08/02/21 20:33: Urine Color HARSH, Urine Clarity CLEAR, Urine pH 5.5, Urine Specific [place] 1.025, Urine Protein 2+, Urine Glucose (UA) NEGATIVE, Urine Ketones TRACE, Urine Nitrite NEGATIVE, Urine Bilirubin 2+, Urine Urobilinogen 0.2, Urine Leukocyte Esterase 3+, Urine RBC (Auto) 3+, Urine RBC 2-5, Urine WBC 25-50, Urine Squamous Epithelial Cells NONE, Urine Renal Epithelial Cells NONE, Urine Crystals NONE, Urine Bacteria LARGE, Urine Casts NONE, Urine Mucus NEGATIVE, Urine Culture Indicated CULTURE PENDING, Urine Opiates Screen NEGATIVE, Urine Oxycodone Screen NEGATIVE, Urine Methadone Screen NEGATIVE, Urine Propoxyphene Screen NEGATIVE, Urine Barbiturates Screen NEGATIVE, Ur Tricyclic Antidepressants Screen NEGATIVE, Urine Phencyclidine Screen NEGATIVE, Urine Amphetamines Screen NEGATIVE, Urine Methamphetamines Screen NEGATIVE, Urine Benzodiazepines Screen NEGATIVE, Urine Cocaine Screen NEGATIVE, Urine Cannabinoids Screen NEGATIVE 08/02/21 20:36: Glucometer 113 08/02/21 21:00: Blood Gas Puncture Site LEFT RADIAL, Blood Gas Patient Temperature 37.9, Arterial Blood pH 7.50, Arterial Blood Partial Pressure CO2 28, Arterial Blood Partial Pressure O2 106, Arterial Blood HCO3 21, Arterial Blood Total CO2 22.1, Arterial Blood Oxygen Saturation 98, Arterial Blood Base Excess -1.4, Surjit Test YES-POS, Blood Gas Ventilator Setting NO, Blood Gas Inspired Oxygen ROOM AIR 08/02/21 22:40: Ammonia 14 08/03/21 04:47: White Blood Count 21.8, Red Blood Count 2.70, Hemoglobin 8.6, Hematocrit 26, Mean Corpuscular Volume 96, Mean Corpuscular Hemoglobin 32, Mean Corpuscular Hemoglobin Concent 33, Red Cell Distribution Width 12.8, Platelet Count 213, Mean Platelet Volume 9.9, Immature Granulocyte % (Auto) 1, Neutrophils (%) (Auto) 86, Lymphocytes (%) (Auto) 2, Monocytes (%) (Auto) 10, Eosinophils (%) (Auto) 0, Basophils (%) (Auto) 0, Neutrophils # (Auto) 18.7, Lymphocytes # (Auto) 0.5, Monocytes # (Auto) 2.3, Eosinophils # (Auto) 0.0, Basophils # (Auto) 0.1, Immature Granulocyte # (Auto) 0.3, Sodium Level 134, Potassium Level 3.6, Chloride Level 104, Carbon Dioxide Level 17, Anion Gap 13, Blood Urea Nitrogen 19, Creatinine 1.22, Estimat Glomerular Filtration Rate 48, BUN/Creatinine Ratio 16, Glucose Level 124, Calcium Level 8.3, Corrected Calcium 9.1, Total Bilirubin 1.7, Aspartate Amino Transf (AST/SGOT) 47, Alanine Aminotransferase (ALT/SGPT) 27, Alkaline Phosphatase 114, Total Protein 5.4, Albumin 3.0, Triglycerides Level 61, Cholesterol Level 91, LDL Cholesterol Direct 52, VLDL Cholesterol 12, HDL Cholesterol 25, Procalcitonin 2.04 08/03/21 07:15: Lactic Acid Level 1.01 08/04/21 04:26: White Blood Count 16.2, Red Blood Count 2.47, Hemoglobin 7.9, Hematocrit 24, Mean Corpuscular Volume 97, Mean Corpuscular Hemoglobin 32, Mean Corpuscular Hemoglobin Concent 33, Red Cell Distribution Width 13.3, Platelet Count 221, Mean Platelet Volume 9.3, Immature Granulocyte % (Auto) 2, Neutrophils (%) (Auto) 78, Lymphocytes (%) (Auto) 9, Monocytes (%) (Auto) 10, Eosinophils (%) (Auto) 0, Basophils (%) (Auto) 0, Neutrophils # (Auto) 12.7, Lymphocytes # (Auto) 1.5, Monocytes # (Auto) 1.7, Eosinophils # (Auto) 0.0, Basophils # (Auto) 0.0, Immature Granulocyte # (Auto) 0.3, Sodium Level 137, Potassium Level 3.6, Chloride Level 111, Carbon Dioxide Level 14, Anion Gap 12, Blood Urea Nitrogen 17, Creatinine 0.93, Estimat Glomerular Filtration Rate 67, BUN/Creatinine Ratio 18, Glucose Level 101, Calcium Level 7.9, Corrected Calcium 9.0, Total Bilirubin 1.6, Aspartate Amino Transf (AST/SGOT) 32, Alanine Aminotransferase (ALT/SGPT) 25, Alkaline Phosphatase 100, Total Protein 5.0, Albumin 2.6, Procalcitonin 2.47 08/04/21 10:08: Lactic Acid Level 0.69 08/04/21 10:50: Urine Color YELLOW, Urine Clarity CLEAR, Urine pH 6.0, Urine Specific [place] 1.020, Urine Protein NEGATIVE, Urine Glucose (UA) NEGATIVE, Urine Ketones TRACE, Urine Nitrite NEGATIVE, Urine Bilirubin NEGATIVE, Urine Urobilinogen 0.2, Urine Leukocyte Esterase 1+, Urine RBC (Auto) 1+, Urine RBC 0-2, Urine WBC 2-5, Urine Squamous Epithelial Cells 0-2, Urine Crystals NONE, Urine Bacteria TRACE, Urine Casts NONE, Urine Mucus NEGATIVE, Urine Culture Indicated YES 08/04/21 10:57: Blood Gas Puncture Site RR, Blood Gas Patient Temperature 36.2, Arterial Blood pH 7.40, Arterial Blood Partial Pressure CO2 27, Arterial Blood Partial Pressure O2 91, Arterial Blood HCO3 16, Arterial Blood Total CO2 17.1, Arterial Blood Ox ygen Saturation 97, Arterial Blood Base Excess -7.8, Surjit Test YES-POS, Blood Gas Ventilator Setting NO, Blood Gas Inspired Oxygen RA 08/04/21 17:11: Glucometer 87 08/05/21 04:54: White Blood Count 15.0, Red Blood Count 2.38, Hemoglobin 7.6, Hematocrit 24, Mean Corpuscular Volume 100, Mean Corpuscular Hemoglobin 32, Mean Corpuscular Hemoglobin Concent 32, Red Cell Distribution Width 13.8, Platelet Count 257, Mean Platelet Volume 9.3, Immature Granulocyte % (Auto) 4, Neutrophils (%) (Auto) 77, Lymphocytes (%) (Auto) 11, Monocytes (%) (Auto) 7, Eosinophils (%) (Auto) 1, Basophils (%) (Auto) 0, Neutrophils # (Auto) 11.6, Lymphocytes # (Auto) 1.6, Monocytes # (Auto) 1.0, Eosinophils # (Auto) 0.2, Basophils # (Auto) 0.1, Immature Granulocyte # (Auto) 0.6, Absolute Reticulocyte Count 46, Percent Reticulocyte Count 1.93, Sodium Level 144, Potassium Level 3.4, Chloride Level 117, Carbon Dioxide Level 13, Anion Gap 14, Blood Urea Nitrogen 16, Creatinine 0.83, Estimat Glomerular Filtration Rate 76, BUN/Creatinine Ratio 19, Glucose Level 76, Calcium Level 8.2, Corrected Calcium 9.4, Iron Level 53, Total Bi lirubin 1.3, Aspartate Amino Transf (AST/SGOT) 23, Alanine Aminotransferase (ALT/SGPT) 21, Alkaline Phosphatase 87, Total Protein 5.2, Albumin 2.5, Vitamin B12 Level 844 08/05/21 08:31: Glucometer 97 08/05/21 12:10: Glucometer 78 08/06/21 05:15: White Blood Count 15.4, Red Blood Count 2.97, Hemoglobin 9.3, Hematocrit 29, Maria Esther n Corpuscular Volume 97, Mean Corpuscular Hemoglobin 31, Mean Corpuscular Hemoglobin Concent 32, Red Cell Distribution Width 14.0, Platelet Count 359, Mean Platelet Volume 9.2, Immature Granulocyte % (Auto) 3, Neutrophils (%) (Auto) 79, Lymphocytes (%) (Auto) 6, Monocytes (%) (Auto) 9, Eosinophils (%) (Auto) 3, Basophils (%) (Auto) 1, Neutrophils # (Auto) 12.2, Lymphocytes # (Auto) 0.9, Monocytes # (Auto) 1.4, Eosinophils # (Auto) 0.4, Basophils # (Auto) 0.1, Immature Granulocyte # (Auto) 0.5, Sodium Level 137, Potassium Level 3.6, Chloride Level 109, Carbon Dioxide Level 15, Anion Gap 13, Blood Urea Nitrogen 14, Creatinine 0.91, Estimat Glomerular Filtration Rate 68, BUN/Creatinine Ratio 15, Glucose Level 102, Calcium Level 8.5, Corrected Calcium 9.4, Total Bilirubin 1.1, Aspartate Amino Transf (AST/SGOT) 24, Alanine Aminotransferase (ALT/SGPT) 22, Alkaline Phosphatase 84, Total Protein 6.3, Albumin 2.9 Discharge Home Medications: Active Scripts Active Reported Pantoprazole Sodium 40 Mg Tablet.dr 40 Mg PO DAILY Olmesartan Medoxomil 20 Mg Tablet 20 Mg PO DAILY Bisoprolol-Hctz 10-6.25 mg Tab (Bisoprolol Fumarate/Hctz) 1 Each Tablet 1 Each PO DAILY Nitroglycerin 0.4 Mg Tab.subl 0.4 Mg SL UD PRN Celexa (Citalopram Hydrobromide) 40 Mg Tablet 40 Mg PO DAILY Metoprolol Succinate 200 Mg Tab.er.24h 200 Mg PO DAILY Hydroxychloroquine Sulfate 200 Mg Tablet 200 Mg PO BID Azulfidine (Sulfasalazine) 500 Mg Tablet 1,500 Mg PO BID TAKES 3 (500MG) TABLETS K-Tab ER (Potassium Chloride) 20 Meq Tablet.er 20 Meq PO DAILY Furosemide 40 Mg Tablet 40 Mg PO DAILY Dicyclomine HCl 20 Mg Tablet 20 Mg PO QID Baclofen 10 Mg Tablet 20 Mg PO TID TAKES 2 (10MG) TABLETS Simvastatin 20 Mg Tablet 20 Mg PO HS Gabapentin 600 Mg Tablet 1,200 Mg PO TID TAKES 2 (600MG) TABLETS Instructions to patient/family Please see electronic discharge instructions given to patient. Diagnosis/Problems Diagnosis/Problems (1) Sepsis Qualifiers: Qualified Codes: A41.9 - Sepsis, unspecified organism; R65.20 - Severe sepsis without septic shock; G93.40 - Encephalopathy, unspecified (2) Delirium Status: Acute (3) Urinary tract infection Status: Acute Qualifiers: Qualified Codes: N30.01 - Acute cystitis with hematuria (4) HTN (hypertension) (5) Chronic kidney disease, stage 3 (6) Primary hypertension (7) CAD (coronary artery disease) Status: Chronic Clinical Quality Measures Stroke: Date of last known well: Aug 02, 2021 Symptoms onset unknown: Yes SUZE COOPER DO Aug 06, 2021 11:33
[2021-08-06 11:50] VITALS: BP 112/67
--- NOTE | 2021-08-06 13:06 | Progress Note - Cardiology ---
Cardiology SOAP Progress Note Subjective: No cp or palp or syncope or shortness of breath Some gen malaise No n/v/d Objective: I&O/Vital Signs 08/06/21 08/06/21 08/06/21 08/06/21 03:09 07:32 07:36 08:00 Temp 36.5 38.2 38.2 36.7 Pulse 86 83 Resp 18 18 B/P (MAP) 156/68 (97) 150/72 (98) Pulse Ox 98 96 O2 Delivery Room Air Room Air 08/06/21 08/06/21 08:00 11:50 Temp 36.7 Pulse 80 Resp 18 B/P (MAP) 112/67 (82) Pulse Ox 96 96 O2 Delivery Room Air Room Air 08/06/21 00:00 Intake Total 780 ml Output Total 575 ml Balance 205 ml Weight (Pounds): 175 Weight (Ounces): 0.0 Weight (Calculated Kilograms): 79.348037 Constitutional: No AAO x 3; well-developed, well-nourished, other (Oriented to person and place today, responds appropriately) Respiratory: No accessory muscle use, No respiratory distress; chest expansion is symmetric, chest is bilaterally symmetric, lungs clear to auscultation Cardiovascular: regular rate-rhythm Gastrointestional: No tender; soft; No guarding; audible bowel sounds Extremities: no lower extremity edema bilateral Neurologic/Psychiatric: No oriented x 3; other (moves extremities) Skin: pallor; No rash on exposed areas, No ulcerations on exposed areas Results/Procedures: Labs Laboratory Tests 08/06/21 05:15: White Blood Count 15.4H, Red Blood Count 2.97L, Hemoglobin 9.3#L, Hematocrit 29L , Mean Corpuscular Volume 97, Mean Corpuscular Hemoglobin 31, Mean Corpuscular Hemoglobin Concent 32, Red Cell Distribution Width 14.0, Platelet Count 359, Mean Platelet Volume 9.2, Immature Granulocyte % (Auto) 3, Neutrophils (%) (Auto) 79H, Lymphocytes (%) (Auto) 6L, Monocytes (%) (Auto) 9, Eosinophils (%) (Auto) 3, Basophils (%) (Auto) 1, Neutrophils # (Auto) 12.2H, Lymphocytes # (Auto) 0.9L, Monocytes # (Auto) 1.4H, Eosinophils # (Auto) 0.4H, Basophils # (Auto) 0.1, Immature Granulocyte # (Auto) 0.5H, Sodium Level 137, Potassium Level 3.6, Chloride Level 109H, Carbon Dioxide Level 15L, Anion Gap 13, Blood Urea Nitrogen 14, Creatinine 0.91, Estimat Glomerular Filtration Rate 68, BUN/Creatinine Ratio 15, Glucose Level 102, Calcium Level 8.5, Corrected Calcium 9.4, Total Bilirubin 1.1H, Aspartate Amino Transf (AST/SGOT) 24, Alanine Aminotransferase (ALT/SGPT) 22, Alkaline Phosphatase 84, Total Protein 6.3L, Albumin 2.9L Microbiology 08/04/21 Urine Culture - Final, Complete NO GROWTH 08/04/21 Blood Culture - Preliminary, Resulted Staph, Coag Neg (DOUGH CATCHER) A/P: Assessment: UTI with sepsis and delirium, improving Sinus tachycardia - likely secondary to sepsis, resolved Hypertension, improved H/o mild, chronic diastolic CHF, none currently - intolerant to doxazosin d/t profound dizziness CAD. Card cath of 01/10/19: patent stent (done in [place], [place] in 2006) in the ostial/prox RCA, no significant CAD, LVEF 65%, elevated LVEDP, no renal artery stenosis Labile hypertension and white-coat hypertension Echocardiogram of May 10, 2018 showed LVEF 60-65%. Mild MR and AoR. PASP 30-35 mmHg Hyperlipidemia being treated with statin therapy - followed by her PCP Bipolar disorder Arthritis of unknown type for which she takes Plaquenil and sulfasalazine, followed Dr Lazaro (her wirer street light at [facility]) Elevated body mass index of approx 29 IBS for which she takes Bentyl PFT's from 08-16-2013 showed spirometry WNL. Lung volumes WNL, diffusion capacity WNL Carotid u/s from 05-31-15 showed less than 40% R ICA stenosis and approx 60% L ICA stenosis for which she is following with Dr. Lechuga Bilateral leg swelling, likely related to venous insuff Chronic gen fatigue. TSH normal on 03/30/17 (3.11) H/o anemia, followed and treated by her pcp Dr Tee Multiple medication intolerances Plan: Cardiac status appears stable Ok to d/c from cardiac standpoint. Outpt cardiac f/u advised Clinical Quality Measures Stroke: Date of last known well: Aug 02, 2021 Symptoms onset unknown: Yes CHAVEZ LR MD FACP FAC CCDS Aug 06, 2021 13:06
--- NOTE | 2021-08-06 14:16 | Progress Note ---
KEEGAN MARTINS MED STUDENT 08/06/21 1416: Progress Note Hospital Course: Miss Pfeiffer is a 70 yo F, a clinic patient of Dr. Melchor, who presented to the ED in a delirious state. She had gone on a trip and was not taking her medi cations as prescribed. She was admitted to the ICU for sepsis with urinary tract infection, and placed on IV antibiotics. Initially, she was unable to respond to questions, open her eyes when spoken to, or respond appropriately. Her case was being followed cardiology due to her history of diastolic CHF and CAD. With the IV fluids and the IV antibiotics, she continued to improve each day and was able to be transferred out of the ICU. As of today, her delirium is much improved, she is sitting comfortably in the chair, eating breakfast without issue and able to answer questions slowly, but appropriately. PT and OT consults indicated that she would benefit from inpatient rehabilitation. At this time, Margarette is safe a stable to be discharged to the acute rehab unit. KAUR COOPER DO 08/07/21 0536: Supervisory-Addendum Brief Verification & Attestation Participated in pt care: history, MDM, physical Personally performed: exam, history, MDM, supervision of care Care discussed with: Medical Student Procedures: n/a Results interpretation: Verified all documentation Verification and Attestation of Medical Student E/M Service A medical student performed and documented this service in my presence. I reviewed and verified all information documented by the medical student and made modifications to such information, when appropriate. I personally performed the physical exam and medical decision making. Kaur Cooper, Aug 07, 2021,05:36 KEEGAN MARTINS MED STUDENT Aug 06, 2021 14:16 KAUR COOPER DO Aug 07, 2021 05:36
--- NOTE | 2021-08-06 16:53 | Physician Query Clarification ---
Physician Query-General Query to Physician: The medical record reflects the following clinical evidence: Clinical Indicators: Na 131, Urine culture pos for E. Coli, "presented to the ER with confusional state". GCS on admission was 14 did improve to 15 on day of discharge, Per physician documentation several days after treatment "Pt is still delirious but much improved and up in a chair talking with eyes open" Risk Factor(s): UTI, Sepsis, Low Na Treatment: ER: Normal saline 2 L, cefepime IV, meropenem IV, 1. Metabolic encephalopathy, present on admission 2. Other explanation of clinical findings 3. Unable to determine (no explanation for clinical findings Please clarify and document your clinical opinion in the progress notes and discharge summary including the definitive and/or presumptive diagnosis, (suspected or probable), related to the above clinical findings. Please include clinical findings supporting your diagnosis. Kelly Crump MSN, RN Clinical Hand Cloth Cutter [phone] [email or web address] PHYSICIAN RESPONSE: Based on the clinical findings in the record, please respond to the query above on this document as an addendum. Physician Response: Physician Response 1 If you have questions please contact: Architecture Drafter: Ext: Thank you for your time and cooperation. Clinical Hand Cloth Cutter/Architecture Drafter This is a permanent part of the medical record KELLY CRUMP Aug 06, 2021 16:53 SUZE COOPER DO Aug 06, 2021 18:55
[2021-08-11] MEDS ORDERED: PATCH REMOVAL TP SCH (08:59)
== END 2021-08-06 12:55 | DRG 871 ==
LOC: EDUNIT# 20:16 → ER 20:17 → ICU 22:18 → 4TH 08-05 11:50
PROVIDERS: ADMIT Internal Medicine; ATTEND Internal Medicine
DX: A41.51 Sepsis due to Escherichia coli [E. coli] (principal); G93.41 Metabolic encephalopathy; N39.0 Urinary tract infection, site not specified; I13.0 Hypertensive heart and chronic kidney disease with heart failure and stage 1 through stage 4 chronic kidney disease, or unspecified chronic kidney disease; I50.32 Chronic diastolic (congestive) heart failure; E86.9 Volume depletion, unspecified; Z91.81 History of falling; R29.701 NIHSS score 1; Z20.822 Contact with and (suspected) exposure to COVID-19; R00.0 Tachycardia, unspecified; N18.30 Chronic kidney disease, stage 3 unspecified; E78.00 Pure hypercholesterolemia, unspecified; E78.5 Hyperlipidemia, unspecified; I25.10 Atherosclerotic heart disease of native coronary artery without angina pectoris; M19.91 Primary osteoarthritis, unspecified site; M79.7 Fibromyalgia; F41.9 Anxiety disorder, unspecified; F31.9 Bipolar disorder, unspecified; K58.9 Irritable bowel syndrome, unspecified; I65.23 Occlusion and stenosis of bilateral carotid arteries; I87.2 Venous insufficiency (chronic) (peripheral); D89.89 Other specified disorders involving the immune mechanism, not elsewhere classified; Z95.5 Presence of coronary angioplasty implant and graft; Z79.82 Long term (current) use of aspirin; Z88.1 Allergy status to other antibiotic agents; Z88.5 Allergy status to narcotic agent; Z88.0 Allergy status to penicillin; Z88.8 Allergy status to other drugs, medicaments and biological substances; Z82.61 Family history of arthritis; Z82.49 Family history of ischemic heart disease and other diseases of the circulatory system
CPT/HCPCS: 36415; 36600; 51702; 70450; 71045; 80053; 80061; 80306; 80320; 81000; 82140; 82607; 82805; 82947; 83540; 83605; 84145; 84484; 85007; 85025; 85027; 85045; 85379; 85610; 85730; 86141; 87040; 87077; 87088; 87186; 87636; 93005; 93041; 93306; 99291

== ENCOUNTER 2021-08-06 10:14 | Inpatient (IN) | payer MEDICARE, OTHER ==
[~2021-08-06] VITALS: Ht 167.7 cm; Wt 86.0 kg
[~2021-08-06 10:14] MED LIST changes: +OLME20TA24 PO; +PANT40TA52 PO
[2021-08-06] MEDS ORDERED: guaiFENesin/CODEINE (ROBITUSSIN AC) 10ML UDC PO PRN (11:45)
[2021-08-06] MEDS ORDERED: DOCUSATE SODIUM 100 MG (COLACE) CAP PO PRN (11:45)
[2021-08-06] MEDS ORDERED: FLEET ENEMA ADULT 1 EA BTL PR PRN (11:45)
[2021-08-06] MEDS ORDERED: BISACODYL 10 MG SUPP (DULCOLAX) PR PRN ×2 (11:45→19:00)
[2021-08-06] MEDS ORDERED: ONDANSETRON 4 MG (ZOFRAN) ORAL DISSOLVE TAB PO PRN ×2 (11:45→19:00)
[2021-08-06] MEDS ORDERED: diphenhydrAMINE 25 MG TAB (BENADRYL) PO PRN ×2 (11:45→19:00)
[2021-08-06] MEDS ORDERED: MELATONIN 3 MG TABLET PO PRN ×2 (11:45→19:00)
[2021-08-06] MEDS ORDERED: ALPRAZolam 0.25 MG (XANAX) TAB PO PRN (11:45)
[2021-08-06] MEDS ORDERED: LACTULOSE SYRUP 10GM/15ML (ENULOSE) 30ML UDC PO PRN ×2 (11:45→19:00)
[2021-08-06] MEDS ORDERED: CALCIUM CARBONATE 500 MG (TUMS) TAB.CHEW PO PRN ×2 (11:45→19:00)
--- NOTE | 2021-08-06 13:23 | Occupational Therapy Eval ---
OT Evaluation-General/PLF Medical Diagnosis Admission Date Aug 06, 2021 at 12:45 Medical Diagnosis: Sepsis, Encephalopathy Onset Date: Aug 02, 2021 Therapy Diagnosis Therapy Diagnosis: Reduced adl status, impaired cognition, speech, balance Height/Weight Height (Feet): 5 Height (Inches): 6.00 Weight (Pounds): 175 Weight (Ounces): 0.0 Precautions Precautions/Isolations: Fall Prevention, Standard Precautions Referral Physician: Nay Referral Reason: Evaluation/Treatment Medical History Pertinent Medical History: Arthritis, CAD, Heart Failure, HTN Additional Medical History autoimmune connective tissue disease Current History Pt presented to ER with expressive and receptive aphasia. Found to be septic. Per family, Patient lives with spouse in a single story home. 5 steps to enter with unilateral railing. She was indep with adls and iadls prior to admission. She did not use any AD for mobility. Reviewed History: Yes Social History Home: Single Level Current Living Status: Spouse Entry Into Home: Stairs With Railing Steps Into Home: 5 ADL-Prior Level of Function SCALE: Activities may be completed with or without assistive devices. 7-Zglvmagcok-bfhpaww completes the activity by him/herself with no assistance from a helper. 5-Set-up or Clean-up Assistance-helper sets up or cleans up; patient completes activity. [place] assists only prior to or following the activity. 4-Supervision or Touching Assistance-helper provides verbal cues and/or touching/steadying and/or contact guard assistance as patient completes activity. Assistance may be provided throughout the activity or intermittently. 3-Partial/Moderate Assistance-helper does LESS THAN HALF the effort. [place] lifts, holds or supports trunk or limbs, but provides less than half the effort. 2-Substantial/Maximal Assistance-helper does MORE THAN HALF the effort. [place] lifts or holds trunk or limbs and provides more than half the effort. 0-Mzfgvvrme-iwqphc does ALL the effort. Patient does none of the effort to complete the activity. Or, the assistance of 2 or more helpers is required for the patient to complete the activity. If activity was not attempted, code reason: 7-Patient Refused. 9-Not Applicable-not attempted and the patient did not perform the activity before the current illness, exacerbation or injury. 10-Not Attempted due to Environmental Limitations-(lack of equipment, weather restraints, etc.). 88-Not Attempted due to Medical Conditions or Safety Concerns. Self Care: Independent Functional Cognition: Independent DME/Equipment: Tub/Shower Drive Self: Yes OT Current Status Subjective When asked about pain, pt does not give numerical value "well that's a loaded question." Pt often laughs when asked a question and does not give answer, defense mechanism? Appearance Pt left sitting in w/c, CHUN present to take over treatment. Mental Status/Objective Patient Orientation: Person, Confused Attachments: Wagner Catheter, IV Current Glasses/Contacts: Yes Hearing Aids: No Hand Dominance: Right Upper Extremity ROM Bilateral shoulders: WFL, extra time to achieve full range, poor coordination exhibited. L hand/digit limited secondary to edema bilateral elbow: WFL Upper Extremity Coordination Impaired dysdiadochokinesia Impaired finger to nose Ataxic like gait Upper Extremity Strength L shoulder: 3/5 R shoulder: 4/5 Fair duralumin metalworker strength bilaterally ADL-Treatment Eating (QC): 4 Oral Hygiene (QC): 7 Shower/Bathe Self (QC): 10 Upper Body Dressing (QC): 10 Lower Body Dressing (QC): 2 On/Off Footwear (QC): 2 Toileting Hygiene (QC): 1 (wagner catheter) Sit<>stand: Mod A, retropulsive. Cues/assist to shift weight forward. Pt unsteady on feet. She ambulated ~15 feet with use of walker; ataxic like gait. Max a to don bilateral socks after good effort exhibited. Pt demonstrates ability to cross foot over contralateral knee but appears to have poor coordination and duralumin metalworker strength to initiate socks over toes. She was able to thread LLE into brief with significant time/effort. Assist required to thread RLE as pt needed BUE's to lift leg as OT held brief open. Mod a to stand. Dependent to manage clothing up to waist secondary to needing BUE support on walker. Pt left with CHUN to take over treatment. Education OT Patient Education: Correct positioning, Disease process, Energy conservation, Modified ADL techniques, Progress toward Goal/Update tx plan, Purpose of tx/functional activities, Rehab process, Safety issues, Transfer techniques, W/C management Teaching Recipient: Patient Teaching Methods: Demonstration, Discussion Response to Teaching: Verbalize Understanding, Reinforcement Needed OT Short Term Goals Short Term Goals Time Frame: Aug 18, 2021 Eatin Oral hygiene: 4 Toileting hygiene: 3 Shower/bathe self: 3 Upper body dressin Lower body dressin Putting on/taking off footwear: 3 OT Web Analytics Developer Goals Web Analytics Developer Goals Time Frame: September 02, 2021 Eating (QC): 6 Oral Hygiene (QC): 6 Toileting Hygiene (QC): 6 Shower/Bathe Self (QC): 5 Upper Body Dressing (QC): 5 Lower Body Dressing (QC): 5 On/Off Footwear (QC): 5 1=Demonstrate adherence to instructed precautions during ADL tasks. 2=Patient will verbalize/demonstrate understanding of assistive devices/modifications for ADL. 3=Patient will improve strength/tolerance for activity to enable patient to perform ADL's. OT Education/Plan Problem List/Assessment Assessment: Decreased Activ Tolerance, Decreased Safety Aware, Decreased UE Strength, Edema, Impaired Cognition, Impaired Coordination, Impaired Funct Balance, Impaired I ADL's, Impaired Self-Care Skills, Restricted Funct UE ROM Discharge Recommendations Plan/Recommendations: Continue POC Therapy Discharge Recommendati: Post Acute OT Treatment Plan/Plan of Care Treatment,Training & Education: Yes Patient would benefit from OT for education, treatment and training to promote independence in ADL's, mobility, safety and/or upper extremity function for ADL's. Plan of Care: ADL Retraining, Cognitive Retraining, Functional Mobility, Group Exercise/Act as Ind, UE Funct Exercise/Act, UE Neuromus Re-Ed/Coord, W/C Management Training Treatment Duration: September 02, 2021 Frequency: At least 5 of 7 days/Wk (IRF) Estimated Hrs Per Day: 1.5 hours per day (60-90 min/day) Agreement: Yes Rehab Potential: Fair Time/GCodes Start Time: 12:45 Stop Time: 12:55 Total Time Billed (hr/min): 10 Billed Treatment Time 1 visit EVM (10 min) Leatha Lerma OT Aug 06, 2021 13:23
[2021-08-06] MEDS: cefTRIAXone 1 GM PRE-MIX 50 ML IV SCH (13:27)
--- NOTE | 2021-08-06 13:52 | Physical Therapy Evaluation ---
PT Evaluation-General Medical Diagnosis Admission Date Aug 06, 2021 at 12:45 Medical Diagnosis: Sepsis, Encephalopathy Onset Date: Aug 02, 2021 Therapy Diagnosis Therapy Diagnosis: Impaired mobiliy, strength, ROM Height/Weight Height (Feet): 5 Height (Inches): 6.00 Weight (Pounds): 175 Weight (Ounces): 0.0 Precautions Precautions/Isolations: Fall Prevention, Standard Precautions Weight Bear Status Full Weight Bearing Left Lower Extremity: Left Full Weight Bearing Referral Physician: Nay Reason for Referral: Evaluation/Treatment Medical History Pertinent Medical History: Arthritis, CAD, Heart Failure, HTN Reviewed History: Yes Social History Home: Single Level Current Living Status: Spouse Entry Into Home: Stairs With Railing PT Steps Into Home: 5 Prior Prior Level of Function SCALE: Activities may be completed with or without assistive devices. 4-Tuwcdajqgq-zngdted completes the activity by him/herself with no assistance from a helper. 5-Set-up or Clean-up Assistance-helper sets up or cleans up; patient completes activity. [place] assists only prior to or following the activity. 4-Supervision or Touching Assistance-helper provides verbal cues and/or touching/steadying and/or contact guard assistance as patient completes activity. Assistance may be provided throughout the activity or intermittently. 3-Partial/Moderate Assistance-helper does LESS THAN HALF the effort. [place] lifts, holds or supports trunk or limbs, but provides less than half the effort. 2-Substantial/Maximal Assistance-helper does MORE THAN HALF the effort. [place] lifts or holds trunk or limbs and provides more than half the effort. 1-Gndhattfx-gsmbfs does ALL the effort. Patient does none of the effort to complete the activity. Or, the assistance of 2 or more helpers is required for the patient to complete the activity. If activity was not attempted, code reason: 7-Patient Refused. 9-Not Applicable-not attempted and the patient did not perform the activity before the current illness, exacerbation or injury. 10-Not Attempted due to Environmental Limitations-(lack of equipment, weather restraints, etc.). 88-Not Attempted due to Medical Conditions or Safety Concerns. Bed Mobility: 6 Transfers (B,C,W/C): 6 Gait: 6 Stairs: 6 Indoor Mobility (Ambulation): Independent Stairs: Independent Prior Devices Use: None PT Evaluation-Current Subjective Patient had son in room. Patient was transfered down to the rehab floor today. Patient was compliant to start treatment. Will be co-treating with OT for part of tx due to poor patient mobility, endurance, severe unsteadiness with activity, coordinate UE and LE with activity, safety and reduce risk of falls. Pain Location: No Pain Reported Pt/Family Goals To be independent at home. Objective Patient Orientation: Person, Place, Non-Verbal/Aphasic Attachments: Leyva Catheter, IV ROM/Strength ROM Lower Extremities Grossly Bilaterally WFL Strength Lower Extremities R LE: (Hip flexion 4-/5, knee extension 4+/5, knee flexion 4/5, DF 4-/5) L LE: (Hip flexion 4-/5, knee extension 4+/5, knee flexion 4/5, DF 4-/5) Integumentary/Posture Bowel Incontinence: No Bladder Incontinence: Leyva Cath Sensory Vision: Functional Hearing: Functional Hand Dominance: Right Transfers Roll Left & Right (QC): 5 Sit to Lying (QC): 5 Lying to Sitting/Side of Bed(Q: 5 Sit to Stand (QC): 3 Chair/Gbt-zi-Mlufw Xfer(QC): 4 Toilet Transfer (QC): 4 Car Transfer (QC): 4 Gait Does the Patient Walk?: Yes Mode of Locomotion: Walk Anticipated Mode of Locomotion: Walk Walk 10 feet (QC): 4 Walk 50 ft with 2 Turns(QC): 4 Walk 150 ft (QC): 4 Walking 10ft/uneven surface-QC: 4 Distance: 10', 150' Gait Assistive Device: FWW Comments/Gait Description Normal step through pattern with slower gait speed. CGA Wheelchair Training Does the Pt Use a Wheelchair?: No Wheel 50 ft with 2 turns (QC): 3 Wheel 150 ft (QC): 88 Type of Wheelchair: N/A Stairs 1 Step (curb) (QC): 88 4 Steps (QC): 88 12 Steps (QC): 88 Balance Sitting Static: Normal Sitting Dynamic: Fair Standing Static: Poor Standing Dynamic: Poor Picking up an Object (QC): 4 Treatment Ambulation, transfers. Assessment/Needs Patient has some trouble with talking, conversing, and expressing what she wants. Patient showed unsteadiness with ambulation initially, but improved over the course of treatment. Patient demonstrates some weakness as seen with transfers, and has impaired balance and coordination. Patient was left with OT for bathing. PT performed bed mobility and transfers, ambulation, WC mobility, standing during dressing and ADL's, OT performed ADL's, UE positioning and safety during activity. Rehab Potential: Fair PT Short Term Goals Short Term Goals Time Frame: Aug 13, 2021 Roll Left & Right: 6 Sit to lyin Lying to sitting on side of be: 6 Sit to stand: 4 (CGA) Chair/ynm-yj-bsfwt transfer: 4 (SBA) Toilet transfer: 4 (SBA) Car transfer: 4 (SBA) 1 step (curb): 4 PT Library Technology Instructor Goals Fdc Goals PT Library Technology Instructor Goals Time Frame: Aug 27, 2021 Roll Left & Right (QC): 6 Sit to Lying (QC): 6 Lying-Sitting on Side/Bed(QC): 6 Sit to Stand (QC): 6 Chair/Ola-ts-Kejvs Xfer(QC): 6 Toilet Transfer (QC): 6 Car Transfer (QC): 6 Does the Patient Walk: Yes Walk 10 feet (QC): 6 Walk 50ft with 2 Turns (QC): 6 Walk 150 ft (QC): 6 Walking 10ft on Uneven Surface: 6 1 Step (curb) (QC): 4 4 Steps (QC): 4 12 Steps (QC): 88 Picking up an Object (QC): 6 Does the Pt use WC or Scooter?: No Wheel 50 feet with 2 turns (QC: 9 Type: N/A Wheel 150 feet: 9 Type: N/A PT Plan Problem List Problem List: Activity Tolerance, Functional Strength, Safety, Balance, Gait, Transfer, Bed Mobility, ROM Treatment/Plan Treatment Plan: Continue Plan of Care Treatment Plan: Bed Mobility, Education, Functional Activity Bree, Functional Strength, Group Therapy, Gait, Safety, Therapeutic Exercise, Transfers Treatment Duration: Aug 13, 2021 Frequency: At least 5 of 7 days/Wk (IRF) Estimated Hrs Per Day: 1.5 hours per day Patient and/or Family Agrees t: Yes Safety Risks/Education Patient Education: Gait Training, Transfer Techniques, Reviewed Precautions, Correct Positioning, W/C Management, Safety Issues Teaching Recipient: Patient Teaching Methods: Demonstration, Discussion Response to Teaching: Verbalize Understanding, Reinforcement Needed Discharge Recommendations Plan Work on Functional strengthening, mobility, balance, education, and safety in order to return to independence at home. Time/GCodes Time In: 1245 Time Out: 1345 Total Billed Treatment Time: 50 Total Billed Treatment 1 visit EVmodC 10min FA 40min (only charge 2 units) [PT eval [id number], OT eval [id number], Co-treatment (PT/OT [id number])] GILDA SCHMIDT PT Aug 06, 2021 13:52
--- NOTE | 2021-08-06 14:35 | Physical Therapy Daily Note ---
PT Daily Note-Current Subjective PT will be co-treating with OT for part of tx due to poor patient mobility, endurance, severe unsteadiness with activity, coordinate UE and LE with activity, safety and reduce risk of falls. Pain Comment: Pt reports no pain Mental Status Patient Orientation: Person, Confused, Situation Attachments: Leyva Catheter Transfers SCALE: Activities may be completed with or without assistive devices. 0-Drykgxfdpj-ycjnzbx completes the activity by him/herself with no assistance from a helper. 5-Set-up or Clean-up Assistance-helper sets up or cleans up; patient completes activity. [place] assists only prior to or following the activity. 4-Supervision or Touching Assistance-helper provides verbal cues and/or touching/steadying and/or contact guard assistance as patient completes activity. Assistance may be provided throughout the activity or intermittently. 3-Partial/Moderate Assistance-helper does LESS THAN HALF the effort. [place] l ifts, holds or supports trunk or limbs, but provides less than half the effort. 2-Substantial/Maximal Assistance-helper does MORE THAN HALF the effort. [place] lifts or holds trunk or limbs and provides more than half the effort. 3-Dplrdnrpu-zrkccz does ALL the effort. Patient does none of the effort to complete the activity. Or, the assistance of 2 or more helpers is required for t he patient to complete the activity. If activity was not attempted, code reason: 7-Patient Refused. 9-Not Applicable-not attempted and the patient did not perform the activity before the current illness, exacerbation or injury. 10-Not Attempted due to Environmental Limitations-(lack of equipment, weather restraints, etc.). 88-Not Attempted due to Medical Conditions or Safety Concerns. Weight Bearing Full Weight Bearing Left Lower Extremity: Left Full Weight Bearing Gait Training Does the Patient Walk?: Yes Gait Assistive Device: FWW Treatments PT was focused on pt's dynamic standing balance, OT was focused on ADLs. Pt worked on dressing, bathing and transfer. PT departs at end of tx, OT is still present. Assessment Current Status: Good Progress Pt would benefit from more PT, to work on balance, activity tolerance, strength. PT Short Term Goals Short Term Goals Time Frame: Aug 13, 2021 Roll Left & Right: 6 Sit to lyin Lying to sitting on side of be: 6 Sit to stand: 4 (CGA) Chair/gus-sn-rpzgc transfer: 4 (SBA) Toilet transfer: 4 (SBA) Car transfer: 4 (SBA) 1 step (curb): 4 PT Car Worker Helper Goals Car Worker Helper Goals PT Car Worker Helper Goals Time Frame: Aug 27, 2021 Roll Left & Right (QC): 6 Sit to Lying (QC): 6 Lying-Sitting on Side/Bed(QC): 6 Sit to Stand (QC): 6 Chair/Mtx-cl-Ugxpv Xfer(QC): 6 Toilet Transfer (QC): 6 Car Transfer (QC): 6 Does the Patient Walk: Yes Walk 10 feet (QC): 6 Walk 50ft with 2 Turns (QC): 6 Walk 150 ft (QC): 6 Walking 10ft on Uneven Surface: 6 1 Step (curb) (QC): 4 4 Steps (QC): 4 12 Steps (QC): 88 Picking up an Object (QC): 6 Does the Pt use WC or Scooter?: No Wheel 50 feet with 2 turns (QC: 9 Type: N/A Wheel 150 feet: 9 Type: N/A PT Plan Problem List Problem List: Activity Tolerance, Functional Strength, Balance Treatment/Plan Treatment Plan: Continue Plan of Care Treatment Plan: Bed Mobility, Education, Functional Activity Bree, Functional Strength, Group Therapy, Gait, Safety, Therapeutic Exercise, Transfers Treatment Duration: Aug 13, 2021 Frequency: At least 5 of 7 days/Wk (IRF) Estimated Hrs Per Day: 1.5 hours per day Patient and/or Family Agrees t: Yes Safety Risks/Education Patient Education: Transfer Techniques, Correct Positioning Teaching Recipient: Patient Teaching Methods: Discussion Response to Teaching: Verbalize Understanding Time/GCodes Time In: 1345 Time Out: 1425 Total Billed Treatment Time: 40 Total Billed Treatment 1, FA 3 (40) AUGUSTO BISHOP PTA Aug 06, 2021 14:35
--- NOTE | 2021-08-06 14:41 | Occupational Ther Daily Note ---
OT Current Status-Daily Note Subjective Pt states that she is doing better today. Pt agreed to OT/PT co-treat. Mental Status/Objective Patient Orientation: Person, Place, Situation Attachments: Leyva Catheter, IV ADL-Treatment Pt completed sponge bath in recliner with 2x assist due to decreased dynamic standing balance to wash upper LE and bottom. Pt donned and doffed socks, and pants with 2x assistance due to limited balance during standing to pull pants over bottom. Pt doffed and donned shirt with Tessie to arrange shirt around trunk and back. Pt required frequent rest breaks during dressing and sponge bath. Pt performed face washing with set up. After session, call button in reach and all needs met with family members in room. Therapy Code Descriptions/Definitions Functional [place] Measure: 0=Not Assessed/NA 4=Minimal Assistance 1=Total Assistance 5=Supervision or Setup 2=Maximal Assistance 6=Modified [place] 3=Moderate Assistance 7=Complete IndependenceSCALE: Activities may be completed with or without assistive devices. 4-Jqbjromrkh-xxaxvdb completes the activity by him/herself with no assistance from a helper. 5-Set-up or Clean-up Assistance-helper sets up or cleans up; patient completes activity. [place] assists only prior to or following the activity. 4-Supervision or Touching Assistance-helper provides verbal cues and/or touching/steadying and/or contact guard assistance as patient completes activity. Assistance may be provided throughout the activity or intermittently. 3-Partial/Moderate Assistance-helper does LESS THAN HALF the effort. [place] lifts, holds or supports trunk or limbs, but provides less than half the effort. 2-Substantial/Maximal Assistance-helper does MORE THAN HALF the effort. [place] lifts or holds trunk or limbs and provides more than half the effort. 0-Toenljrrv-rmjghz does ALL the effort. Patient does none of the effort to complete the activity. Or, the assistance of 2 or more helpers is required for the patient to complete the activity. If activity was not attempted, code reason: 7-Patient Refused. 9-Not Applicable-not attempted and the patient did not perform the activity before the current illness, exacerbation or injury. 10-Not Attempted due to Environmental Limitations-(lack of equipment, weather restraints, etc.). 88-Not Attempted due to Medical Conditions or Safety Concerns. Shower/Bathe Self (QC): 1 (pt required assist 2x due to decreased standing balance to wash bottom) Upper Body Dressing (QC): 3 (pt required Tessie to adjust down trunk and back) Lower Body Dressing (QC): 1 (pt required 2x assist due to decrease dynamic standing balance when pulling pants over bottom) On/Off Footwear: 3 (pt was able to thread socks over toes, but required Tessie to adjust over foot. Pt also required more time to complete task due to limited activity tolerance) Co-treat with PT ([id number]), skills of 2 clinicians required to decrease fall risk, increase functional mobility for ADLs and increase dynamic balance. PT focusing on transfers, ambulation and dynamic standing/sitting while OT focusing on ADLs, functional mobility and transfers. OT Short Term Goals Short Term Goals Time Frame: Aug 18, 2021 Eatin Oral hygiene: 4 Toileting hygiene: 3 Shower/bathe self: 3 Upper body dressin Lower body dressin Putting on/taking off footwear: 3 OT Detention Goals Detention Goals Time Frame: September 02, 2021 Eating (QC): 6 Oral Hygiene (QC): 6 Toileting Hygiene (QC): 6 Shower/Bathe Self (QC): 5 Upper Body Dressing (QC): 5 Lower Body Dressing (QC): 5 On/Off Footwear (QC): 5 1=Demonstrate adherence to instructed precautions during ADL tasks. 2=Patient will verbalize/demonstrate understanding of assistive devices/modifications for ADL. 3=Patient will improve strength/tolerance for activity to enable patient to perform ADL's. OT Education/Plan Problem List/Assessment Assessment: Decreased Activ Tolerance, Decreased Safety Aware, Decreased UE Strength, Impaired Cognition, Impaired Coordination, Impaired Funct Balance, Impaired I ADL's, Impaired Self-Care Skills Discharge Recommendations Plan/Recommendations: Continue POC Treatment Plan/Plan of Care Patient would benefit from OT for education, treatment and training to promote independence in ADL's, mobility, safety and/or upper extremity function for ADL's. Plan of Care: ADL Retraining, Cognitive Retraining, Functional Mobility, Group Exercise/Act as Ind, UE Funct Exercise/Act, UE Neuromus Re-Ed/Coord, W/C Management Training Treatment Duration: September 02, 2021 Frequency: At least 5 of 7 days/Wk (IRF) Estimated Hrs Per Day: 1.5 hours per day (60-90 min/day) Agreement: Yes Rehab Potential: Fair Time/GCodes Start Time: 13:05 Stop Time: 14:33 Total Time Billed (hr/min): 88 Billed Treatment Time 1 visit-FA 3 (45 min) ADL 3 (43 min) co-treat with PT [id number], individual [id number] Manda Bailon ECHO VASCULAR TECH Aug 06, 2021 14:41
[2021-08-06] MEDS ORDERED: ACETAMINOPHEN 325 MG TABLET PO PRN (19:00)
[2021-08-06] MEDS ORDERED: MILK OF MAGNESIA 400 MG/5 ML 30 ML UDC PO PRN (19:00)
[2021-08-06] MEDS ORDERED: hydrALAZINE (APRESOLINE) 25 MG TAB PO PRN (19:00)
[2021-08-06] MEDS ORDERED: ANTACID SUSP 30 ML UDC (MYLANTA) PO PRN (19:00)
[2021-08-06] MEDS ORDERED: ONDANSETRON 4 MG/2 ML (SDV) Z0FRAN IV PRN (19:00)
[2021-08-06] MEDS ORDERED: polyethylene glycoL POWDER 17 GM (MIRALAX) PACK PO PRN (19:00)
[2021-08-06] MEDS ORDERED: PATCH REMOVAL TP SCH (19:00)
[2021-08-06] MEDS ORDERED: LORazepam INJ 2 MG/ML (ATIVAN) VIAL IVP PRN (19:00)
[2021-08-06] MEDS ORDERED: cloNIDine 0.1 MG (CATAPRES) TAB PO PRN (19:00)
[2021-08-06] MEDS ORDERED: diphenhydrAMINE 50 MG/ML INJ (BENADRYL) IVP PRN (19:00)
[2021-08-06] MEDS ORDERED: NITROGLYCERIN 0.4 MG SL TABS BTL 25'S SL PRN (19:00)
[2021-08-06] MEDS ORDERED: OLANZapine 5 MG (ZyPREXA) TAB PO PRN (19:00)
[2021-08-06] MEDS: sulfaSALAzine 500 MG (AZULFIDINE) TAB PO SCH (19:42)
[2021-08-06 19:59] VITALS: BP 134/88
[2021-08-06] MEDS: GABAPENTIN 600 MG (NEURONTIN) TAB PO SCH (20:49)
[2021-08-06] MEDS: DOCUSATE SODIUM 100 MG (COLACE) CAP PO SCH (20:49)
[2021-08-06] MEDS: SIMvastatin 20 MG (ZOCOR) TAB PO SCH (20:50)
[2021-08-06] MEDS: BACLOFEN 10 MG (LIORESAL) TAB PO SCH (20:52)
[2021-08-06] MEDS: polyethylene glycoL POWDER 17 GM (MIRALAX) PACK PO SCH (20:53)
[2021-08-06] MEDS: SENNOSIDES 8.6 MG (SENOKOT) TAB PO SCH (20:54)
[2021-08-06] MEDS ORDERED: DOCUSATE SODIUM 100 MG (COLACE) CAP PO SCH (21:00)
[2021-08-06] MEDS ORDERED: SENNA W/DOCUSATE (SENOKOT S) TABLET PO SCH (21:00)
--- NOTE | 2021-08-07 05:43 | PM&R Post Admission Assessment ---
PM&R HP Date of Visit: Aug 07, 2021 Time of Visit: 10:00 History of Present Illness CC: Debility from delirium from E.coli bacteremia from pyelonephritis HPI: This is a 70 yr old [facility] clinic pt of [employer]. She presented to the in-patient rehab due to a long stay, most of it in the ICU due to altered mental status delirium with pyelonephritis and E.coli bacteremia. Currently she still has some confusion but she will be monitored closely. Aggressive OT, PT, and speech therapy will be initiated in order to return back home to independent living. I did speak with daughter who is a general surgeon outside of the [facility] limits. She will require aggressive treatment in order to regain independence. Patient was seen and examined at 1000. She is doing much better and delirium has cleared for the most part. agriculture technician will evaluate meds including Colestid she wants restarted but I don't have that even on my clinic med list so will clarify. She thinks she has tardive dyskinesia since she saw a commercial on it but I do not believe she has that and this is a result of her critical illness. ICU/[facility] Hospital course: Hospital Course: Miss Pfeiffer is a 70 yo F, a clinic patient of Dr. Melchor, who presented to the ED in a delirious state. She had gone on a trip and was not taking her medications as prescribed. She was admitted to the ICU for sepsis with urinary tract infection, and placed on IV antibiotics. Initially, she was unable to resp ond to questions, open her eyes when spoken to, or respond appropriately. Her case was being followed cardiology due to her history of diastolic CHF and CAD. With the IV fluids and the IV antibiotics, she continued to improve each day and was able to be transferred out of the ICU. As of today, her delirium is much improved, she is sitting comfortably in the chair, eating breakfast without issue and able to answer questions slowly, but appropriately. PT and OT consults indicated that she would benefit from inpatient rehabilitation. At this time, Margarette is safe a stable to be discharged to the acute rehab unit. Past Oslxcmd-Yqotqe-Jltvqi Hx Past Med/Social Hx: Reviewed Nursing Past Med/Soc Hx, Reviewed and Corrections made Patient Social History Marrital Status: Employed/Student: retired Alcohol Use: Denies Use Smoking Status: Never a Smoker 2nd Hand Smoke Exposure: No Recent Hopitalizations: No Immunizations Up To Date Tetanus Booster (TDap): Less than 5yrs Pediatric: No Date of Pneumonia Vaccine: Mar 01, 2018 Date of Influenza Vaccine: Feb 09, 2017 Seasonal Allergies Seasonal Allergies: No Past Medical History Surgeries: Adenoidectomy, Appendectomy, Cardiac, Coronary Stent, Gallbladder, Orthopedic, Tonsillectomy Chronic cough Cardiac: Coronary Artery Disease, High Cholesterol, Hypertension Reproductive: Yes (unable to have children) Menopausal Genitourinary: UTI-Chronic Gastrointestinal: Colitis, Irritable Bowel Musculoskeletal: Arthritis, Fibromyalgia, Fractures Connective tissue disease Hearing Impairment: Hard of Hearing Psychosocial: Anxiety, Bipolar, Depression History of Blood Disorders: No Adverse Reaction to Blood [place]: No Family History Arthritis 19 MOTHER G8 SISTER Cardiovascular disease 19 MOTHER G8 BROTHER G8 BROTHER Cirhosis of liver G8 SISTER Kidney disease G8 SISTER Ms No Pertinent Family Hx Prior Level of Function Bed Mobility: 6 Transfers: 6 Gait: 6 Stairs: 6 Indoor Mobility (Ambulation): Independent Stairs: Independent Prior Devices Use: None Self Care: Independent Functional Cognition: Independent Drive Self: Yes Current Level of Fuctioning Roll Left to Right: 5 Sit to Lyin Lying to Sitting/Side of Bed: 5 Sit to Stand: 3 Chair/Pmg-zo-Ltews Xfer: 4 Car Transfer: 4 Does the Patient Walk: Yes Mode of Locomotion: Walk Anticipated Mode of Locomotion: Walk Walk 10 feet: 4 Walk 50 ft with 2 Turns: 4 Walk 150 ft: 4 Walking 10ft on uneven surface: 4 Gait Assistive Device: FWW Does the Pt Use a Wheelchair: No Wheel 50 ft with 2 turns: 3 Wheel 150 ft: 88 Type of Wheelchair: N/A 1 Step (curb): 88 4 Steps: 88 12 Steps: 88 Picking up an Object: 4 Eatin Oral Hygiene: 7 Shower/Bathe Self: 1 (pt required assist 2x due to decreased standing balance to wash bottom) Upper Body Dressin (pt required Tessie to adjust down trunk and back) Lower Body Dressin (pt required 2x assist due to decrease dynamic standing balance when pulling pants over bottom) On/Off Footwear: 3 (pt was able to thread socks over toes, but required Tessie to adjust over foot. Pt also required more time to complete task due to limited activity tolerance) PM&R Allergy/Meds/Data Review Allergies Coded Allergies: celecoxib (Verified Allergy, Severe, TAKES ASPIRIN AT HOME, 10/19/18) SOA penicillin G (Verified Allergy, Mild, 10/19/18) HIVES divalproex sodium (Verified Allergy, Unknown, 10/19/18) JOINT PAIN, "GUMS BECOME LOSE AROUND TEETH" meperidine (Verified Allergy, Unknown, 10/19/18) LOSES CONTROL OF HANDS AND ARMS morphine (Verified Allergy, Unknown, 10/19/18) FLU LIKE SYMPTOMS ofloxacin (Verified Allergy, Unknown, 10/19/18) TACHYCARDIA promethazine (Verified Allergy, Unknown, 05/28/08) propoxyphene (Verified Allergy, Unknown, 10/19/18) LOSES CONTROL OF HANDS AND ARMS telavancin (Unverified Adverse Reaction, Severe, 10/19/18) SUICIDAL lamotrigine (Unverified Adverse Reaction, Intermediate, BODY JERKS, 10/19/18) SUICIDAL amitriptyline (Verified Adverse Reaction, Mild, 10/19/18) LOSES CONTROL OF HANDS AND ARMS azithromycin (Verified Adverse Reaction, Mild, 10/19/18) FLU LIKE SYMPTOMS erythromycin base (Verified Adverse Reaction, Mild, 10/19/18) NAUSEA, VOMITING promethazine HCl (Unverified Adverse Reaction, Mild, 10/19/18) HALLUCINATIONS Home Medications Scheduled Baclofen (Baclofen), 20 MG PO TID, (Reported) Bisoprolol Fumarate/Hctz (Bisoprolol-Hctz 10-6.25 mg Tab), 1 EACH PO DAILY, (Reported) Citalopram Hydrobromide (Celexa), 40 MG PO DAILY, (Reported) Dicyclomine HCl (Dicyclomine HCl), 20 MG PO QID, (Reported) Furosemide (Furosemide), 40 MG PO DAILY, (Reported) Gabapentin (Gabapentin), 1,200 MG PO TID, (Reported) Hydroxychloroquine Sulfate (Hydroxychloroquine Sulfate), 200 MG PO BID, (Reported) Metoprolol Succinate (Metoprolol Succinate), 200 MG PO DAILY, (Reported) Olmesartan Medoxomil (Olmesartan Medoxomil), 20 MG PO DAILY, (Reported) Pantoprazole Sodium (Pantoprazole Sodium), 40 MG PO DAILY, (Reported) Potassium Chloride (K-Tab ER), 20 MEQ PO DAILY, (Reported) Simvastatin (Simvastatin), 20 MG PO HS, (Reported) Sulfasalazine (Azulfidine), 1,500 MG PO BID, (Reported) Scheduled PRN Nitroglycerin (Nitroglycerin), 0.4 MG SL UD PRN for CHEST PAIN, (Reported) Discontinued Medications Alprazolam (Xanax), 1 MG PO TID PRN, (Reported) Discontinued Reason: No Longer Taking Aspirin (Aspirin), 81 MG PO BID, (Reported) Discontinued Reason: No Longer Taking Colestipol HCl (Colestipol HCl), 1 GM PO BID, (Reported) Discontinued Reason: No Longer Taking Doxycycline Hyclate (Doxycycline Hyclate), 100 MG PO BID WITH MEALS Discontinued Reason: No Longer Taking Lisinopril (Lisinopril), 40 MG PO HS, (Reported) Discontinued Reason: No Longer Taking Trazodone HCl (Trazodone HCl), 100 MG PO HS PRN for SLEEP, (Reported) Discontinued Reason: No Longer Taking Current Medications Current Medications Reviewed Review of Systems Constitutional: see HPI, dizziness, malaise, weakness EENTM: no symptoms reported Respiratory: no symptoms reported Cardiovascular: no symptoms reported Gastrointestinal: no symptoms reported Genitourinary: no symptoms reported Musculoskeletal: back pain, joint pain Skin: no symptoms reported Psychiatric/Neurological: Anxiety, Depressed, Other (Confusion) All Other Systems Reviewed Negative Unless Noted: Yes Physical Exam Physical Exam Vital Signs Vital Signs - First Documented 08/06/21 08/06/21 14:00 19:59 Temp 36.9 Pulse 120 Resp 22 B/P (MAP) 134/88 (103) Pulse Ox 93 O2 Delivery Room Air Capillary Refill : Height, Weight, BMI Height: 5'6.00" Weight: 175lbs. 0.0oz. [id number]; 28.58 BMI Method:Stated General Appearance: No Apparent Distress, WD/WN, Chronically ill, Other (Subtle confusion) Eyes: Bilateral Eye Normal Inspection, Bilateral Eye PERRL HEENT: PERRL/EOMI, Normal ENT Inspection, Pharynx Normal Neck: Full Range of Motion, Normal Inspection, Non Tender, Supple, Carotid Bruit Respiratory: Chest Non Tender, Lungs Clear, Normal Breath Sounds, No Accessory Muscle Use, No Respiratory Distress Cardiovascular: Regular Rate, Rhythm, No Edema, No Gallop, No JVD, No Murmur, Normal Peripheral Pulses Gastrointestinal: Normal Bowel Sounds, No Organomegaly, No Pulsatile Mass, Non Tender, Soft Back: Normal Inspection, No CVA Tenderness, No Vertebral Tenderness Extremity: Normal Capillary Refill, Normal Inspection, Normal Range of Motion, Non Tender, No Calf Tenderness, No Pedal Edema Neurologic/Psychiatric: Alert, No Motor/Sensory Deficits, Normal Mood/Affect, design and sales consultant II-XII Norm as Tested, Abnormal Gait, Depressed Affect, Disoriented, Motor Weakness (Generalized) Skin: Normal Color, Warm/Dry Lymphatic: No Adenopathy PM&R Medical Assessment & Plan REHAB/MEDICAL ASSESSMENT AND PLAN: REHAB IMPAIRMENT GROUP: Delirium/encephalopathy ETIOLOGIC DIAGNOSIS: Delirium/encephalopathy The comorbidities that impact the patients function and/or functional outcome by: Severe confusion, bacteremia with E. coli, baseline bipolar disorder, malignant hypertension REHAB PLAN: The patient is being admitted to our comprehensive inpatient rehabilitation facility and can tolerate the intensity of service consisting of at least: 180 minutes of therapy a day, 5 out of 7 days a week Rehab treatment will consist of: PT and OT will focus on regaining enough function with assistive devices and work on strengthening and speech therapy will work on deficits in order to return home The patient/family has a good understanding of our discharge process and will benefit from an interdisciplinary inpatient rehabilitation program. The patient has potential to make improvement and is in need of at least two of the following multidisciplinary therapies including but not limited to physical, occupational, speech, and prosthetics and orthotics. Additionally the patient will need services from respiratory, nutritional services, wound care, psychology, etc. (Customize this to each patient). Given the patients complex condition and risk of further medical complications, rehabilitation services cannot be safely or effectively provided at a lower level of care such as a fdc facility. BARRIERS TO DISCHARGE: Severe confusion ESTIMATED LOS: 10 days DISPOSITION: Home RELEVANT CHANGES SINCE PREADMISSION SCREENING: I have compared the patients medical and functional status at the time of the preadmission screening and there are: No changes PROGNOSIS: Good REHABILITATION GOALS: 1. PT and OT will focus on regaining enough function with assistive devices and work on strengthening and speech therapy will work on deficits in order to return home All the above goals were reviewed with the patient and he/she is in agreement. By signing this document, I acknowledge that I have personally performed a full physical examination on this patient within 24 hours of admission to this inpatient rehabilitation facility and have determined the patient to be able to tolerate the above course of treatment at an intensive level for a reasonable period of time. I will be completing a detailed individualized Plan of Care for this patient by day #4 of the patients stay based upon the Preadmission Screen, the Post-Admission Evaluation, and the therapy evaluations. Admission Dx/Comorbidities: (1) Delirium Status: Acute ICD Codes: R41.0 - Disorientation, unspecified (2) Sepsis ICD Codes: A41.9 - Sepsis, unspecified organism (3) Urinary tract infection Status: Acute ICD Codes: N39.0 - Urinary tract infection, site not specified (4) HTN (hypertension) ICD Codes: I10 - Essential (primary) hypertension (5) Mixed hyperlipidemia ICD Codes: E78.2 - Mixed hyperlipidemia (6) Chronic kidney disease, stage 3 ICD Codes: N18.30 - Chronic kidney disease, stage 3 unspecified (7) Primary hypertension ICD Codes: I10 - Essential (primary) hypertension (8) Macrocytic anemia ICD Codes: D53.9 - Nutritional anemia, unspecified (9) Coronary artery disease without angina pectoris ICD Codes: I25.10 - Atherosclerotic heart disease of [place] coronary artery wit hout angina pectoris (10) Bipolar disorder Status: Chronic ICD Codes: F31.9 - Bipolar disorder, unspecified (11) Encephalopathy acute ICD Codes: G93.40 - Encephalopathy, unspecified (12) Sinus tachycardia ICD Codes: R00.0 - Tachycardia, unspecified Assessment/Plan Assessment and Plan Assess & Plan/Chief Complaint Assessment: Sepsis Sinus tachycardia UTI/pyelonephritis with gram-negative bacteremia narrowed antibiotics to Rocephin now Volume depletion requiring volume resuscitation 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 Galan Hypertension malignant type Hyperlipidemia Chronic cough Bipolar disorder Plan: Supportive care Consult cardiology Antibiotics DVT prophylaxis Aggressive PT and OT Speech therapy for cognitive treatment DC catheter Evaluate libbys SUZE COOPER DO Aug 07, 2021 05:43
[2021-08-07 06:21] LABS: BASOPHILS % (AUTO) 0 % (0-10); EOSINOPHILS # (AUTO) 0.3 10^3/uL (0.0-0.3); EOSINOPHILS % (AUTO) 3 % (0-10); HEMATOCRIT 24 % (35-52); HEMOGLOBIN 7.9 g/dL (11.5-16.0); LYMPHOCYTES # (AUTO) 0.9 10^3/uL (1.0-4.0); LYMPHOCYTES % (AUTO) 9 % (12-44); MEAN CORPUSCULAR HEMOGLOBIN 32 pg (25-34); MEAN CORPUSCULAR HGB CONC 33 g/dL (32-36); MEAN CORPUSCULAR VOLUME 97 fL (80-99); MEAN PLATELET VOLUME 9.1 fL (9.0-12.2); MONOCYTES # (AUTO) 0.9 10^3/uL (0.0-1.0); MONOCYTES % (AUTO) 10 % (0-12); NEUTROPHILS # (AUTO) 6.9 10^3/uL (1.8-7.8); NEUTROPHILS % (AUTO) 74 % (42-75); PLATELET COUNT 354 10^3/uL (130-400); WHITE BLOOD COUNT 9.4 10^3/uL (4.3-11.0)
[2021-08-07 06:31] LABS: ALBUMIN 2.5 GM/DL (3.2-4.5); POTASSIUM 3.5 MMOL/L (3.6-5.0)
[2021-08-07 06:33] LABS: CALCIUM 8.2 MG/DL (8.5-10.1)
[2021-08-07 06:34] LABS: TOTAL PROTEIN 5.5 GM/DL (6.4-8.2)
[2021-08-07 06:36] LABS: BILIRUBIN,TOTAL 0.6 MG/DL (0.1-1.0)
[2021-08-07 06:37] LABS: CREATININE SERUM 0.97 MG/DL (0.60-1.30)
[2021-08-07 07:43] VITALS: BP 177/75
[2021-08-07] MEDS: PANTOPRAZOLE 40 MG (PROTONIX) TAB PO SCH (08:06)
[2021-08-07] MEDS: FAMOTIDINE 20 MG (PEPCID) TABLET PO SCH (08:06)
[2021-08-07] MEDS: BACLOFEN 10 MG (LIORESAL) TAB PO SCH (08:06)
[2021-08-07] MEDS: meTOproloL SUCCINATE 50 MG (TOPROL XL) TAB PO SCH (08:06)
[2021-08-07] MEDS: DOCUSATE SODIUM 100 MG (COLACE) CAP PO SCH ×2 (08:06→21:35)
[2021-08-07] MEDS: GABAPENTIN 600 MG (NEURONTIN) TAB PO SCH ×3 (08:06→21:34)
[2021-08-07] MEDS: LOSARTAN 100 MG (COZAAR) TABLET PO SCH (08:07)
[2021-08-07] MEDS: ASPIRIN E.C. 81 MG (ECOTRIN) TAB PO SCH (08:07)
[2021-08-07] MEDS: sulfaSALAzine 500 MG (AZULFIDINE) TAB PO SCH ×2 (08:07→18:24)
[2021-08-07] MEDS: amLODIPine 5 MG (NORVASC) TAB PO SCH (08:07)
[2021-08-07] MEDS: ENOXAPARIN 40 MG/0.4 ML (LOVENOX) SYR SC SCH (08:07)
[2021-08-07] MEDS: SENNOSIDES 8.6 MG (SENOKOT) TAB PO SCH ×2 (08:07→21:35)
[2021-08-07] MEDS: cefTRIAXone 1 GM PRE-MIX 50 ML IV SCH (09:06)
--- NOTE | 2021-08-07 09:12 | Occupational Ther Daily Note ---
OT Current Status-Daily Note Subjective Pt began session laying supine in bed and agreed to OT tx. Mental Status/Objective Patient Orientation: Person, Place, Time ADL-Treatment Pt transferred from supine to EOB with SBA and then to FWW with Surinder. Pt functionally ambulated to toilet with FWW at [facility]. After finishing toileting, pt performed toilet hygiene with ModA due to decreased dynamic standing balance while cleansing and to pull pants over bottom. Pt then donned new brief and pants with ModA due to limited balance when standing and to adjust pants around bottom. Pt cleansed body with wipes and then donned shirt with Surinder to adjust shirt down back. Pt required frequent rest breaks during activities. Pt then transferred from toilet to FWW and functionally ambulated to sink to wash hands and brush hair at [facility]. Upon finishing, pt ambulated to EOB with FWW at [facility]. Pt then transferred to supine in bed with SBA. After session, pt supine in bed, call light in reach and all needs met. Therapy Code Descriptions/Definitions Functional [place] Measure: 0=Not Assessed/NA 4=Minimal Assistance 1=Total Assistance 5=Supervision or Setup 2=Maximal Assistance 6=Modified [place] 3=Moderate Assistance 7=Complete IndependenceSCALE: Activities may be completed with or without assistive devices. 2-Ljhjofelko-afgzbky completes the activity by him/herself with no assistance from a helper. 5-Set-up or Clean-up Assistance-helper sets up or cleans up; patient completes activity. [place] assists only prior to or following the activity. 4-Supervision or Touching Assistance-helper provides verbal cues and/or touching/steadying and/or contact guard assistance as patient completes activity. Assistance may be provided throughout the activity or intermittently. 3-Partial/Moderate Assistance-helper does LESS THAN HALF the effort. [place] li fts, holds or supports trunk or limbs, but provides less than half the effort. 2-Substantial/Maximal Assistance-helper does MORE THAN HALF the effort. [place] lifts or holds trunk or limbs and provides more than half the effort. 4-Lyzayjfqw-pkxitd does ALL the effort. Patient does none of the effort to complete the activity. Or, the assistance of 2 or more helpers is required for the patient to complete the activity. If activity was not attempted, code reason: 7-Patient Refused. 9-Not Applicable-not attempted and the patient did not perform the activity before the current illness, exacerbation or injury. 10-Not Attempted due to Environmental Limitations-(lack of equipment, weather restraints, etc.). 88-Not Attempted due to Medical Conditions or Safety Concerns. Upper Body Dressing (QC): 3 (Surinder) Lower Body Dressing (QC): 2 (ModA) On/Off Footwear: 4 (SBA) Toileting Hygiene (QC): 2 (ModA) Toilet Transfer (QC): 3 (Surinder) OT Short Term Goals Short Term Goals Time Frame: Aug 18, 2021 Eatin Oral hygiene: 4 Toileting hygiene: 3 Shower/bathe self: 3 Upper body dressin Lower body dressin Putting on/taking off footwear: 3 OT Artificial Cherry Maker Goals Care Home Goals Time Frame: September 02, 2021 Eating (QC): 6 Oral Hygiene (QC): 6 Toileting Hygiene (QC): 6 Shower/Bathe Self (QC): 5 Upper Body Dressing (QC): 5 Lower Body Dressing (QC): 5 On/Off Footwear (QC): 5 1=Demonstrate adherence to instructed precautions during ADL tasks. 2=Patient will verbalize/demonstrate understanding of assistive devices/modifications for ADL. 3=Patient will improve strength/tolerance for activity to enable patient to perform ADL's. OT Education/Plan Problem List/Assessment Assessment: Decreased Activ Tolerance, Decreased Safety Aware, Decreased UE Str ength, Impaired Cognition, Impaired Coordination, Impaired Funct Balance, Impaired I ADL's, Impaired Self-Care Skills Discharge Recommendations Plan/Recommendations: Continue POC Treatment Plan/Plan of Care Patient would benefit from OT for education, treatment and training to promote independence in ADL's, mobility, safety and/or upper extremity function for ADL's. Plan of Care: ADL Retraining, Cognitive Retraining, Functional Mobility, Group Exercise/Act as Ind, UE Funct Exercise/Act, UE Neuromus Re-Ed/Coord, W/C Management Training Treatment Duration: September 02, 2021 Frequency: At least 5 of 7 days/Wk (IRF) Estimated Hrs Per Day: 1.5 hours per day (60-90 min/day) Agreement: Yes Rehab Potential: Fair Time/GCodes Start Time: 08:00 Stop Time: 09:00 Total Time Billed (hr/min): 60 Billed Treatment Time 1 visit- 4 ADL (60) Manda Bailon Aug 07, 2021 09:12
[2021-08-07] MEDS: polyethylene glycoL POWDER 17 GM (MIRALAX) PACK PO SCH ×2 (09:26→21:35)
[2021-08-07] MEDS ORDERED: BACLOFEN 10 MG (LIORESAL) TAB PO PRN (10:00)
[2021-08-07] MEDS: DICYCLOMINE 10 MG (BENTYL) CAP PO SCH ×2 (10:51→21:34)
--- NOTE | 2021-08-07 11:37 | Physical Therapy Daily Note ---
PT Daily Note-Current Subjective Patient was with in room upon entry. Patient had seemed more verbal and cognizant today. Pain Location: No Pain Reported Mental Status Patient Orientation: Person, Place Transfers SCALE: Activities may be completed with or without assistive devices. 3-Grrioklbad-abjwabf completes the activity by him/herself with no assistance from a helper. 5-Set-up or Clean-up Assistance-helper sets up or cleans up; patient completes activity. [place] assists only prior to or following the activity. 4-Supervision or Touching Assistance-helper provides verbal cues and/or touching/steadying and/or contact guard assistance as patient completes activity. Assistance may be provided throughout the activity or intermittently. 3-Partial/Moderate Assistance-helper does LESS THAN HALF the effort. [place] lifts, holds or supports trunk or limbs, but provides less than half the effort. 2-Substantial/Maximal Assistance-helper does MORE THAN HALF the effort. [place] l ifts or holds trunk or limbs and provides more than half the effort. 7-Aqldjqgne-ezivko does ALL the effort. Patient does none of the effort to complete the activity. Or, the assistance of 2 or more helpers is required for the patient to complete the activity. If activity was not attempted, code reason: 7-Patient Refused. 9-Not Applicable-not attempted and the patient did not perform the activity before the current illness, exacerbation or injury. 10-Not Attempted due to Environmental Limitations-(lack of equipment, weather restraints, etc.). 88-Not Attempted due to Medical Conditions or Safety Concerns. Roll Left & Right (QC): 6 Sit to Lying (QC): 6 Lying to Sitting/Side of Bed(Q: 6 Sit to Stand (QC): 4 Chair/Vmb-lf-Zpzdc Xfer(QC): 4 Toilet Transfer (QC): 4 Weight Bearing Full Weight Bearing Full Weight Bearing Gait Training Does the Patient Walk?: Yes Distance: 100', 250', 75', 75', Walk 10 feet (QC): 4 Walk 50 ft with 2 Turns(QC): 4 Walk 150 ft (QC): 4 Gait Assistive Device: FWW SBA with FWW. normal gait reciprical gait pattern. Some unsteadiness but no LOB Wheelchair Training Does the Pt Use a Wheelchair?: No Type of Wheelchair: N/A Stair Training #of Steps: 12 1 Step (curb) (QC): 4 4 Steps (QC): 4 12 Steps (QC): 4 Stairs: Pattern: Reciprocal CGA Balance Special Test Comments Tinetti Exercises Standing: Heel/toe raises, Marching, Mini squats, Step-ups Standing Reps: 20 Treatments ambulation, LE strengthening Assessment Current Status: Fair Progress Patient had more balance and strength during ambulation today. Patient had needed to have a bowel movement two times during this session, and talked to nursing about medication. Patient was left in bed with call light, tray, and all needs met bed alarm on. PT Short Term Goals Short Term Goals Time Frame: Aug 13, 2021 Roll Left & Right: 6 Sit to lyin Lying to sitting on side of be: 6 Sit to stand: 4 (CGA) Chair/kmm-by-ahpok transfer: 4 (SBA) Toilet transfer: 4 (SBA) Car transfer: 4 (SBA) 1 step (curb): 4 PT Diesel Dragline Operator Goals Snf Goals PT Diesel Dragline Operator Goals Time Frame: Aug 27, 2021 Roll Left & Right (QC): 6 Sit to Lying (QC): 6 Lying-Sitting on Side/Bed(QC): 6 Sit to Stand (QC): 6 Chair/Sbe-uv-Itbjo Xfer(QC): 6 Toilet Transfer (QC): 6 Car Transfer (QC): 6 Does the Patient Walk: Yes Walk 10 feet (QC): 6 Walk 50ft with 2 Turns (QC): 6 Walk 150 ft (QC): 6 Walking 10ft on Uneven Surface: 6 1 Step (curb) (QC): 4 4 Steps (QC): 4 12 Steps (QC): 88 Picking up an Object (QC): 6 Does the Pt use WC or Scooter?: No Wheel 50 feet with 2 turns (QC: 9 Type: N/A Wheel 150 feet: 9 Type: N/A PT Plan Problem List Problem List: Activity Tolerance, Functional Strength, Safety, Balance, Gait, Transfer, Bed Mobility Treatment/Plan Treatment Plan: Continue Plan of Care Treatment Plan: Bed Mobility, Education, Functional Activity Bree, Functional Strength, Group Therapy, Gait, Safety, Therapeutic Exercise, Transfers Treatment Duration: Aug 13, 2021 Frequency: At least 5 of 7 days/Wk (IRF) Estimated Hrs Per Day: 1.5 hours per day Patient and/or Family Agrees t: Yes Safety Risks/Education Patient Education: Gait Training, Transfer Techniques, Steps, Correct Position ing, Safety Issues Teaching Recipient: Patient Teaching Methods: Discussion Response to Teaching: Verbalize Understanding Time/GCodes Time In: 1000 Time Out: 1115 Total Billed Treatment Time: 75 Total Billed Treatment 1 visit GT 45min EX 15 FA 15 GILDA SCHMIDT PT Aug 07, 2021 11:37
--- NOTE | 2021-08-07 11:55 | Occupational Ther Daily Note ---
OT Current Status-Daily Note Subjective Pt lying supine in bed with family members in room. Pt and family member agreed to OT tx. Mental Status/Objective Patient Orientation: Person, Place, Time ADL-Treatment Pt lying supine in bed performed oral care with Set up assistance. After session, Pt supine in bed with call light in reach and all needs met. Therapy Code Descriptions/Definitions Functional [place] Measure: 0=Not Assessed/NA 4=Minimal Assistance 1=Total Assistance 5=Supervision or Setup 2=Maximal Assistance 6=Modified [place] 3=Moderate Assistance 7=Complete IndependenceSCALE: Activities may be completed with or without assistive devices. 6-Yrnavvtpqg-eenkwdx completes the activity by him/herself with no assistance from a helper. 5-Set-up or Clean-up Assistance-helper sets up or cleans up; patient completes activity. [place] assists only prior to or following the activity. 4-Supervision or Touching Assistance-helper provides verbal cues and/or touching/steadying and/or contact guard assistance as patient completes activity. Assistance may be provided throughout the activity or intermittently. 3-Partial/Moderate Assistance-helper does LESS THAN HALF the effort. [place] lift s, holds or supports trunk or limbs, but provides less than half the effort. 2-Substantial/Maximal Assistance-helper does MORE THAN HALF the effort. [place] lifts or holds trunk or limbs and provides more than half the effort. 4-Jbhelkbgo-chiptk does ALL the effort. Patient does none of the effort to complete the activity. Or, the assistance of 2 or more helpers is required for the patient to complete the activity. If activity was not attempted, code reason: 7-Patient Refused. 9-Not Applicable-not attempted and the patient did not perform the activity before the current illness, exacerbation or injury. 10-Not Attempted due to Environmental Limitations-(lack of equipment, weather restraints, etc.). 88-Not Attempted due to Medical Conditions or Safety Concerns. Oral Hygiene (QC): 5 (set up) OT Short Term Goals Short Term Goals Time Frame: Aug 18, 2021 Eatin Oral hygiene: 4 Toileting hygiene: 3 Shower/bathe self: 3 Upper body dressin Lower body dressin Putting on/taking off footwear: 3 OT Assisted Goals Assisted Goals Time Frame: September 02, 2021 Eating (QC): 6 Oral Hygiene (QC): 6 Toileting Hygiene (QC): 6 Shower/Bathe Self (QC): 5 Upper Body Dressing (QC): 5 Lower Body Dressing (QC): 5 On/Off Footwear (QC): 5 1=Demonstrate adherence to instructed precautions during ADL tasks. 2=Patient will verbalize/demonstrate understanding of assistive devices/modifications for ADL. 3=Patient will improve strength/tolerance for activity to enable patient to perform ADL's. OT Education/Plan Problem List/Assessment Assessment: Decreased Activ Tolerance, Decreased Safety Aware, Decreased UE Strength, Impaired Cognition, Impaired Coordination, Impaired Funct Balance, Impaired I ADL's, Impaired Self-Care Skills Discharge Recommendations Plan/Recommendations: Continue POC Treatment Plan/Plan of Care Patient would benefit from OT for education, treatment and training to promote independence in ADL's, mobility, safety and/or upper extremity function for ADL's. Plan of Care: ADL Retraining, Cognitive Retraining, Functional Mobility, Group Exercise/Act as Ind, UE Funct Exercise/Act, UE Neuromus Re-Ed/Coord, W/C Joselin gement Training Treatment Duration: September 02, 2021 Frequency: At least 5 of 7 days/Wk (IRF) Estimated Hrs Per Day: 1.5 hours per day (60-90 min/day) Agreement: Yes Rehab Potential: Fair Time/GCodes Start Time: 11:45 Stop Time: 12:00 Total Time Billed (hr/min): 15 Billed Treatment Time 1 visit: 1, ADL (15) Manda Bailon Aug 07, 2021 11:55
--- NOTE | 2021-08-07 14:02 | ST Dysphagia Evaluation ---
Speech Evaluation-General Medical Diagnosis Sepsis, Encephalopathy Onset Date: Aug 02, 2021 Therapy Diagnosis Therapy Diagnosis: Intact Oropharyngeal Swallow Function Precautions Precautions: Fall Precautions/Isolations: Fall Prevention, Standard Precautions Referral Referring Physician: Dr. Kaur Tee Reason for Referral: Evaluation/Treatment Medical History Pertinent Medical History: Arthritis, CAD, Heart Failure, HTN Current History The patient is a 70 year-old female, who presented to [facility] with altered mental status delirium suspected secondary to pyelonephritis and E.coli bacteremia. Reviewed History: Yes Social History Current Living Status: Spouse Speech PLF/Current-Dysphagia Prior Level of Function Prior to hospitalization, the patient was receiving a regular diet with thin liquids. The patient was evaluated on 08/05/2021. At the time of the initial evaluation, the patient remained confused. Throughout the bedside swallowing evaluation, the patient demonstrated rigorous coughing following the swallow with thin liquids, as well as, poorly coordinated mastication of solid consistencies. The recommendation of a dysphagia three diet consistency with nectar-thick liquids was provided by this clinician. Subjective The patient was seated upright in bed, awake and alert upon entrance to her room by the clinician. The patient stated, "Are you the speech therapist?" The odessai katalina re-introduced herself from the day prior and provided rationale for her visit. Per patient, "If you are speech, you might as well leave. I'm done with you. You're the one who put me on the fake water and fake coke. I don't want you in here." Again, the rationale for the clinician's visit for complete evaluation of the swallowing function in attempts to remove diet consistency constraints was provided. The patient stated, "If you don't plan to do that, I don't want any time with you." The clinician offered to terminate the service per patient request however provided positive encouragement to participate for patient safety. The patient hesitantly agreed to the evaluation at this time. Cognitive Status Patient Orientation: Person, Confused, Place Oral Motor Skills Dentition: Natural Current Food Consistancy: Mechanical Soft, [place] Liquids Ability to Follow Directions: Good Oral Expression Ability: Mild Impairment Voice Voice Phonatory-Based Quality: Normal Voice Pitch: Normal Voice Loudness: Normal Face Facial Symmetry: Symmetrical Oral-Facial Assessment Oral-Facial Dentition: Normal Labial Seal Description: Normal Smile: Normal Puff Cheeks: Normal Lingual Protrusion: Normal Lingual ROM: Normal Lingual Strength: Normal Volitional Dry Swallow: Yes Voluntary Cough: Yes Can Clear Throat Volitionally: Yes Productive Cough: Yes Productive Throat Clear: Yes Dysphagia Evaluation Consistencies Presented: Regular, Thin Liquid, Pureed Oral impairments were not noted throughout the evaluation. Pharyngeal impairments were not noted throughout the evaluation. Dietary Recommendations: Regular Liquid Recommendations: Thin Recommendations: - Regular consistency diet with thin liquids, as tolerated. - Fully upright and alert for PO intake. - Small, single bites and sips. - Monitor for s/s of suspected aspiration with PO intake. If demonstrated, contact speech pathology. The recommendations were provided to the patient, the patient's , and the RN immediately following completion of the assessment. To note, the patient does display a rigorous cough at baseline in isolation of PO intake. Dysphagia Evaluation Summary The patient demonstrated an intact oropharyngeal swallow function. Speech-Plan Treatment Plan Speech Therapy Treatment Plan: Discontinue ST (Dysphagia) Treatment Duration: Aug 07, 2021 Frequency: 1 time per week Estimated Hrs Per Day: .5 hour per day Rehab Potential: Fair Pt/Family Agrees to Plan: Yes Safety Risks/Education Teaching Recipient: Patient, Family Teaching Methods: Discussion Response to Teaching: Verbalize Understanding, Reinforcement Needed Education Topics Provided: Results, Recommendations, Plan of Care, Safe Swallowing Strategies Time Speech Therapy Time In: 09:00 Speech Therapy Time Out: 09:30 Total Billed Time: 30 Billed Treatment Time 1, MURRAY CÁRDENAS [facility] ST Aug 07, 2021 14:02
[2021-08-07 20:41] VITALS: BP 145/64
[2021-08-07] MEDS ORDERED: DICYCLOMINE 10 MG (BENTYL) CAP PO SCH (21:00)
[2021-08-07] MEDS: SIMvastatin 20 MG (ZOCOR) TAB PO SCH (21:34)
[2021-08-07] MEDS: ACETAMINOPHEN 325 MG TABLET PO PRN (22:02)
[2021-08-08] MEDS: LOPERAMIDE 2 MG (IMODIUM) TABLET PO PRN ×5 (04:34→19:03)
--- NOTE | 2021-08-08 06:02 | PM&R Progress Note ---
Subjective HPI/CC On Admission Date Seen by Provider: Aug 08, 2021 Time Seen by Provider: 10:00 Subjective/Events-last exam 08/08/2021: Patient dramatically improved with delirium Now her bipolar seems to be very much in the focus Very felipe and demanding and unhappy received some reviewed texts typical for her bipolar flares Daughter who is a surgeon from [place] is at the bedside along with her son We will continue to be supportive and provide reassurance Fever noted but expected Maintain on Rocephin We will check labs in the morning Frustrated with edema of legs so I did order Lasix 40 mg IV x1 consulted Dr. Galan We will call 2 physicians she missed office visits with to explain why she missed her appointments We will restart Colestid for colitis even though she is not refilled in 4 months it appears she had some stockpiled Review of Systems General: Fatigue, Malaise Neurological: Weakness, Confusion Objective Exam Vital Signs Vital Signs Date Time Temp Pulse Resp B/P (MAP) Pulse Ox O2 Delivery O2 Flow Rate FiO2 08/08/21 21:00 98 Room Air 08/08/21 19:41 37.6 87 24 159/74 (102) Capillary Refill : General Appearance: No Apparent Distress, WD/WN, Chronically ill, Other (Subtle confusion) HEENT: PERRL/EOMI, Normal ENT Inspection, Pharynx Normal Neck: Full Range of Motion, Normal Inspection, Non Tender, Supple, Carotid Bruit Respiratory: Chest Non Tender, Lungs Clear, Normal Breath Sounds, No Accessory Muscle Use, No Respiratory Distress Cardiovascular: Regular Rate, Rhythm, No Edema, No Gallop, No JVD, No Murmur, Normal Peripheral Pulses Gastrointestinal: Normal Bowel Sounds, No Organomegaly, No Pulsatile Mass, Non Tender, Soft Back: Normal Inspection, No CVA Tenderness, No Vertebral Tenderness Extremity: Normal Capillary Refill, Normal Inspection, Normal Range of Motion, Non Tender, No Calf Tenderness, No Pedal Edema Neurologic/Psychiatric: Alert, No Motor/Sensory Deficits, Normal Mood/Affect, engineer internship II-XII Norm as Tested, Abnormal Gait, Depressed Affect, Disoriented, Motor Weakness (Generalized) Skin: Normal Color, Warm/Dry Lymphatic: No Adenopathy Results/Procedures Lab Patient resulted labs reviewed. FIM Transfers Therapy Code Descriptions/Definitions Functional [place] Measure: 0=Not Assessed/NA 4=Minimal Assistance 1=Total Assistance 5=Supervision or Setup 2=Maximal Assistance 6=Modified [place] 3=Moderate Assistance 7=Complete IndependenceSCALE: Activities may be completed with or without assistive devices. 4-Uzvxizidme-gippoci completes the activity by him/herself with no assistance from a helper. 5-Set-up or Clean-up Assistance-helper sets up or cleans up; patient completes activity. [place] assists only prior to or following the activity. 4-Supervision or Touching Assistance-helper provides verbal cues and/or touching/steadying and/or contact guard assistance as patient completes activity. Assistance may be provided throughout the activity or intermittently. 3-Partial/Moderate Assistance-helper does LESS THAN HALF the effort. [place] lifts, holds or supports trunk or limbs, but provides less than half the effort. 2-Substantial/Maximal Assistance-helper does MORE THAN HALF the effort. [place] lifts or holds trunk or limbs and provides more than half the effort. 7-Ncxkrgplk-ntiipl does ALL the effort. Patient does none of the effort to complete the activity. Or, the assistance of 2 or more helpers is required for the patient to complete the activity. If activity was not attempted, code reason: 7-Patient Refused. 9-Not Applicable-not attempted and the patient did not perform the activity before the current illness, exacerbation or injury. 10-Not Attempted due to Environmental Limitations-(lack of equipment, weather restraints, etc.). 88-Not Attempted due to Medical Conditions or Safety Concerns. Roll Left to Right (QC): 6 Sit to Lying (QC): 6 Sit to Stand (QC): 4 Chair/Tku-tp-Qnkxp Xfer(QC): 4 Car Transfer (QC): 4 Gait Training Does the Patient Walk?: Yes Distance: 100', 250', 75', 75', Walk 10 feet (QC): 4 Walk 50 ft with 2 Turns(QC): 4 Walk 150 ft (QC): 4 Walking 10ft/uneven surface-QC: 4 Gait Assistive Device: FWW Wheelchair Training Does the Pt Use a Wheelchair?: No Wheel 50 ft with 2 turns (QC): 3 Wheel 150 ft (QC): 88 Type of Wheelchair: N/A Stair Training #of Steps: 12 1 Step (curb) (QC): 4 4 Steps (QC): 4 12 Steps (QC): 4 Stairs: Pattern: Reciprocal Balance Picking up an Object (QC): 4 ADL-Treatment Eating (QC): 4 Oral Hygiene (QC): 5 (set up) Shower/Bathe Self (QC): 1 (pt required assist 2x due to decreased standing balance to wash bottom) Upper Body Dressing (QC): 3 (Surinder) Lower Body Dressing (QC): 2 (ModA) On/Off Footwear (QC): 4 (SBA) Toileting Hygiene (QC): 2 (ModA) Toilet Transfer (QC): 3 (Surinder) Assessment/Plan Assessment and Plan Assess & Plan/Chief Complaint Assessment: Sepsis Sinus tachycardia UTI/pyelonephritis with gram-negative bacteremia narrowed antibiotics to Rocephin now Volume depletion requiring volume resuscitation now causing edema with third spacing so initiated Lasix 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 Galan Hypertension malignant type Hyperlipidemia Chronic cough Bipolar disorder with current flare Autoimmune connective tissue disease managed at Plan: Supportive care Consult cardiology Antibiotics DVT prophylaxis Aggressive PT and OT Speech therapy for cognitive treatment DC catheter Evaluate meds 08/08/2021: IV Lasix Supportive care for bipolar flare Continue Rocephin Monitor closely (1) Delirium Status: Acute (2) Sepsis (3) Urinary tract infection Status: Acute (4) HTN (hypertension) (5) Mixed hyperlipidemia (6) Chronic kidney disease, stage 3 (7) Primary hypertension (8) Macrocytic anemia (9) Coronary artery disease without angina pectoris (10) Bipolar disorder Status: Chronic (11) Encephalopathy acute (12) Sinus tachycardia SUZE COOPER DO Aug 08, 2021 06:02
--- NOTE | 2021-08-08 06:02 | Individualized Plan of Care ---
Individualized Plan of Care Rehab Nursing IPOC Order Admission Date Aug 06, 2021 at 12:45 Current Orders Orders Admission Order(Inpt,Obs,Sdc) (08/06/21 11:35) Vital Signs: Per Unit Policy ( 08,16,00 (08/06/21 11:35) Sujit Campbell (08/06/21 11:35) Sequential Compression Device (08/06/21 11:35) Slat Basket Maker Machine-Inpt Rehab Con (08/06/21 11:35) Rehab Nursing Orders-Ipoc (08/06/21 11:35) Physical Therapy Rehab Orders (08/06/21 11:35) Occupational Therapy Rehab Ord (08/06/21 11:35) Speech Therapy Rehab Orders (08/06/21 11:35) Cbc With Automated Diff (08/07/21 06:00) Comprehensive Metabolic Panel (08/07/21 06:00) Precautions (Aru) (08/06/21 11:35) Weekly Weight WEEK (08/06/21 11:35) Rehab-Intensity Of Therapy (08/06/21 11:35) Initiate Admission Nursing Pro .admission (08/06/21 11:35) Alprazolam Tablet (Xanax Tablet) (08/06/21 11:45) Calcium Carbonate Chew Tablet (Antacid C (08/06/21 11:45) Diphenhydramine Tablet (Benadryl Tablet) (08/06/21 11:45) Docusate Sodium Capsule (Colace Capsule) (08/06/21 21:00) Docusate Sodium Capsule (Colace Capsule) (08/06/21 11:45) Bisacodyl Suppository (Dulcolax Supposit (08/06/21 11:45) Lactulose Oral Solution (Enulose Oral So (08/06/21 11:45) Na Phos/Na Biphos Enema (Fleet Enema Brandon (08/06/21 11:45) Guaifenesin/Codeine Syrup (Robitussin Ac (08/06/21 11:45) Loperamide Tablet (Imodium Tablet) (08/06/21 11:45) Melatonin Tablet (Melatonin Tablet) (08/06/21 11:45) Polyethylene Glycol Powder Pkt (Miralax (08/06/21 21:00) Ondansetron Oral Dissolve Tab (Zofran (08/06/21 11:45) Senna S Tablet (Senokot S Tablet) (08/06/21 21:00) Acetaminophen Tablet/Caplet (Tylenol T (08/06/21 11:45) Code/Resuscitation (08/06/21 11:35) Initiate Admission Nursing Pro .admission (08/06/21 11:35) Ceftriaxone 1 Gm Pre-Mix (Rocephin 1 Gm (08/06/21 13:00) Admission Arrival Bed Request (08/06/21 13:09) Patient Visit (08/06/21 ) Pt Eval Moderate Complexity (08/06/21 ) Functional Activities, Ea 15 (08/06/21 ) Patient Visit (08/06/21 ) Functional Activities, Ea 15 (08/06/21 ) Code/Resuscitation (08/06/21 18:48) Aspirin Enteric Coated Tablet (Ecotrin T (08/07/21 09:00) Baclofen Tablet (Lioresal Tablet) (08/06/21 21:00) Diphenhydramine Injection (Benadryl Inje (08/06/21 19:00) Diphenhydramine Tablet (Benadryl Tablet) (08/06/21 19:00) Citalopram Tablet (Celexa Tablet) (08/07/21 09:00) Docusate Sodium Capsule (Colace Capsule) (08/06/21 21:00) Bisacodyl Suppository (Dulcolax Supposit (08/06/21 19:00) Enoxaparin Injection (Lovenox Injection (08/07/21 09:00) Lactulose Oral Solution (Enulose Oral So (08/06/21 19:00) Famotidine Tablet (Pepcid Tablet) (08/07/21 09:00) Gabapentin Capsule/Tablet (Neurontin Cap (08/06/21 21:00) Lorazepam Injection (Ativan Injection) (08/06/21 19:00) Losartan Tablet (Cozaar Tablet) (08/07/21 09:00) Melatonin Tablet (Melatonin Tablet) (08/06/21 19:00) Magnesium Hydroxide Oral Susp (Mom Oral (08/06/21 19:00) Polyethylene Glycol Powder Pkt (Miralax (08/06/21 19:00) Antacid Suspension (Mylanta Suspension (08/06/21 19:00) Nitroglycerin 0.4 Mg Btl 25's (Nitrostat (08/06/21 19:00) Olanzapine Tablet (Zyprexa Tablet) (08/06/21 19:00) Pantoprazole Tablet (Protonix Tablet) (08/07/21 09:00) Patch Removal (Patch Removal) (08/06/21 19:00) Sennosides Tablet (Senokot Tablet) (08/06/21 21:00) Simvastatin Tablet (Zocor Tablet) (08/06/21 21:00) Calcium Carbonate Chew Tablet (Antacid C (08/06/21 19:00) Acetaminophen Tablet/Caplet (Tylenol T (08/06/21 19:00) Ondansetron Injection (Zofran Injectio (08/06/21 19:00) Ondansetron Oral Dissolve Tab (Zofran (08/06/21 19:00) Amlodipine Tablet (Norvasc Tablet) (08/07/21 09:00) Clonidine Tablet (Catapres Tablet) (08/06/21 19:00) Hydralazine Tablet (Apresoline Tablet) (08/06/21 19:00) Metoprolol Succinate (Xl) Tab (Toprol Xl (08/07/21 09:00) Oxycodone Immediate Rel Tablet (Oxyir Ta (08/06/21 19:00) Sulfasalazine Tablet (Azulfidine Tablet) (08/06/21 19:00) Iv Convert To Heplock (Order) (08/06/21 18:48) Catheter(Urinary) Discontinue (08/07/21 07:00) Clonidine Patch (Catapres Patch) (08/11/21 09:00) Patch Removal (Patch Removal) (08/11/21 08:45) Baclofen Tablet (Lioresal Tablet) (08/07/21 10:00) Dicyclomine Capsule (Bentyl Capsule) (08/07/21 21:00) Dicyclomine Capsule (Bentyl Capsule) (08/07/21 10:30) General/Regular (08/07/21 Lunch) Patient Visit (08/07/21 ) Dysphagia Evaluation Std (08/07/21 ) Dysphagia Therapy (08/07/21 ) Patient Visit (08/07/21 ) Exercise Therap, Ea 15 Min (08/07/21 ) Functional Activities, Ea 15 (08/07/21 ) Gait Training, Ea 15 Min (08/07/21 ) Saliva Stimulant Mouth Mcclure (Biotene Mo (08/08/21 08:45) Consult Cardiology (08/08/21 10:09) Baclofen Tablet (Lioresal Tablet) (08/08/21 13:00) Furosemide Tablet (Lasix Tablet) (08/09/21 09:00) Gabapentin Capsule/Tablet (Neurontin Cap (08/08/21 13:00) Hydroxychloroquine Sulfate (Plaquenil) (08/08/21 18:00) Nitroglycerin 0.4 Mg Btl 25's (Nitrostat (08/08/21 10:30) Olmesartan Tab (Non-Formulary) (Benicar (08/09/21 09:00) Pantoprazole Tablet (Protonix Tablet) (08/09/21 09:00) Simvastatin Tablet (Zocor Tablet) (08/08/21 21:00) Sulfasalazine Tablet (Azulfidine Tablet) (08/08/21 18:00) (Nf) Bisoprolol Fumarate/Hctz (Bisoprolo (08/09/21 09:00) (Nf) Citalopram Hydrobromide (Celexa) (08/09/21 09:00) (Nf) Dicyclomine Hcl (08/08/21 13:00) (Nf) Metoprolol Succinate (08/09/21 09:00) (Nf) Potassium Chloride (K-Tab Er) (08/09/21 09:00) Colestipol Tablet (Colestid Tablet) (08/08/21 10:30) Furosemide Injection (Lasix Injection) (08/08/21 10:45) Potassium Chloride (Tablet) (K Dur Table (08/09/21 07:00) Patient Visit (08/08/21 ) Speech Sound Lang Comp (08/08/21 ) Treat. Speech/Lang/Voice (08/08/21 ) Metoprolol Succinate (Xl) Tab (Toprol Xl (08/09/21 09:00) Citalopram Tablet (Celexa Tablet) (08/09/21 09:00) Patient Visit (08/08/21 ) Exercise Therap, Ea 15 Min (08/08/21 ) Gait Training, Ea 15 Min (08/08/21 ) Patient Visit (08/08/21 ) Gait Training, Ea 15 Min (08/08/21 ) Iron Sucrose Injection (Venofer Injectio (08/09/21 09:00) Cbc With Automated Diff (08/09/21 05:24) Comprehensive Metabolic Panel (08/09/21 05:24) Magnesium (08/09/21 05:24) Rehab Nursing Orders: Ongoing Assess. of Cognitive Status, Ongoing Assess. of Function Status, Bladder Management, Bladder Scan, Bladder Training, Bowel Management, Bowel Training, Disease Management & Educaiton, DVT Prophylaxis, Fall Prevention, Fluid/Electrolyte/Nutrition Mgmt, Infection Prevention, Medication Management & Education, Management of Risks & Complications, Management of Skin Intergrity, Nutrition Management, Pain Management, Patient/Family Support, Safety Management Intensity of Therapy to be met Patient to be seen: Min.3h per day/5 of 7d PT IPOC Problem List: Activity Tolerance, Functional Strength, Safety, Balance, Gait, Transfer, Bed Mobility Treatment Plan: Continue Plan of Care Bed Mobility, Education, Functional Activity Bree, Functional Strength, Group Therapy, Gait, Safety, Therapeutic Exercise, Transfers Treatment Duration: Aug 13, 2021 Frequency: At least 5 of 7 days/Wk (IRF) Estimated Hrs Per Day: 1.5 hours per day OT IPOC Problems: Decreased Activ Tolerance, Decreased Safety Aware, Decreased UE Strength, Impaired Cognition, Impaired Coordination, Impaired Funct Balance, Impaired I ADL's, Impaired Self-Care Skills OT Treatment, Training and Edu: Yes Plan of Care: ADL Retraining, Cognitive Retraining, Functional Mobility, Group Exercise/Act as Ind, UE Funct Exercise/Act, UE Neuromus Re-Ed/Coord, W/C Management Training Treatment Duration: September 02, 2021 Frequency: At least 5 of 7 days/Wk (IRF) Estimated Hrs Per Day: 1.5 hours per day (60-90 min/day) ST IPOC Speech Therapy Treatment Plan: Discontinue ST (Dysphagia) Treatment Duration: Aug 07, 2021 Frequency: 1 time per week Estimated Hrs Per Day: .5 hour per day Slat Basket Maker Machine/Case Mgmt Slat Basket Maker Machine/Case Managemen: Discharge Planning Dietitian/Lottery Office Manager Dietitian/Lottery Office Manager to monitor nutritional status and make changes and/or recommendations as needed and work with speech pathology on dietary upgrades as the occur. Physician IPOC Medical Issues being managed closely and that require the 24 hour availability of a physician: Recent critical illness with bacteremia with E. coli currently on IV Rocephin with continued residual of delirium will require close monitoring of fever and lab results conferring with cardiology for third spacing edema Medical Issues: Bowel/Bladder Function, DVT Prophylaxis, Falls Precautions, Fluid/Electrolyte/Nutrition Balance, Infection Protection, Pain Management Brief Synthesis of Preadmission Screen, Post-Admission Evaluation, and Therapy Evaluations: PT and OT will focus on regaining function in the midst of delirium clearance with the use of assistive devices and supportive care Medical Prognosis: Good Anticipated Length of Stay: 7 days SUZE COOPER DO Aug 08, 2021 06:02
[2021-08-08] MEDS: GABAPENTIN 600 MG (NEURONTIN) TAB PO SCH ×3 (07:41→22:09)
[2021-08-08] MEDS: sulfaSALAzine 500 MG (AZULFIDINE) TAB PO SCH ×2 (07:41→16:52)
[2021-08-08] MEDS: meTOproloL SUCCINATE 50 MG (TOPROL XL) TAB PO SCH (07:42)
[2021-08-08] MEDS: FAMOTIDINE 20 MG (PEPCID) TABLET PO SCH (07:42)
[2021-08-08] MEDS: DICYCLOMINE 10 MG (BENTYL) CAP PO SCH ×2 (07:42→22:10)
[2021-08-08] MEDS: LOSARTAN 100 MG (COZAAR) TABLET PO SCH (07:42)
[2021-08-08] MEDS: ASPIRIN E.C. 81 MG (ECOTRIN) TAB PO SCH (07:42)
[2021-08-08] MEDS: amLODIPine 5 MG (NORVASC) TAB PO SCH (07:42)
[2021-08-08] MEDS: PANTOPRAZOLE 40 MG (PROTONIX) TAB PO SCH (07:43)
[2021-08-08] MEDS: ENOXAPARIN 40 MG/0.4 ML (LOVENOX) SYR SC SCH (08:07)
[2021-08-08] MEDS: cefTRIAXone 1 GM PRE-MIX 50 ML IV SCH (08:08)
[2021-08-08 08:26] VITALS: BP 161/70
[2021-08-08] MEDS: polyethylene glycoL POWDER 17 GM (MIRALAX) PACK PO SCH ×2 (08:43→22:14)
[2021-08-08] MEDS: SENNOSIDES 8.6 MG (SENOKOT) TAB PO SCH ×2 (08:43→22:14)
[2021-08-08] MEDS: DOCUSATE SODIUM 100 MG (COLACE) CAP PO SCH ×2 (08:43→22:14)
[2021-08-08] MEDS ORDERED: SALIVA STIMULANT MOUTH SPRAY (BIOTENE) 1.5 OZ MM PRN (08:45)
--- NOTE | 2021-08-08 09:56 | Physical Therapy Daily Note ---
PT Daily Note-Current Subjective Patient complains of dizziness, stomach pain, coughing, and wheezing, and nurse notified us that a fever was running. Patient was compliant to start treatment. Pain Location: No Pain Reported Mental Status Patient Orientation: Person, Confused, Place, Situation Transfers SCALE: Activities may be completed with or without assistive devices. 4-Baduftfwwz-zxpmxfw completes the activity by him/herself with no assistance from a helper. 5-Set-up or Clean-up Assistance-helper sets up or cleans up; patient completes activity. [place] assists only prior to or following the activity. 4-Supervision or Touching Assistance-helper provides verbal cues and/or touching/steadying and/or contact guard assistance as patient completes activity. Assistance may be provided throughout the activity or intermittently. 3-Partial/Moderate Assistance-helper does LESS THAN HALF the effort. [place] lifts, holds or supports trunk or limbs, but provides less than half the effort. 2-Substantial/Maximal Assistance-helper does MORE THAN HALF the effort. [place] lifts or holds trunk or limbs and provides more than half the effort. 6-Rzffacqdh-mymhoc does ALL the effort. Patient does none of the effort to complete the activity. Or, the assistance of 2 or more helpers is required for the patient to complete the activity. If activity was not attempted, code reason: 7-Patient Refused. 9-Not Applicable-not attempted and the patient did not perform the activity before the current illness, exacerbation or injury. 10-Not Attempted due to Environmental Limitations-(lack of equipment, weather restraints, etc.). 88-Not Attempted due to Medical Conditions or Safety Concerns. Sit to Lying (QC): 6 Lying to Sitting/Side of Bed(Q: 6 Sit to Stand (QC): 6 Weight Bearing Full Weight Bearing Full Weight Bearing Gait Training Does the Patient Walk?: Yes Distance: 900' Walk 10 feet (QC): 4 Walk 50 ft with 2 Turns(QC): 4 Walk 150 ft (QC): 4 Gait Assistive Device: FWW SBA Exercises Supine Ex: Ankle pumps, Heel Slides, Straight leg raise, Hip abd/add Supine Reps: 12 Seated Therapy Exercises: Hip abd/add Treatments LE strengthening, ambulation Assessment Current Status: Fair Progress Patient demonstrated some behavioral issues that sounded like they wanted to get out of therapy. Patient would take extra time to stop and talk during activities, and constantly wanted to direct our time to something else rather than treatment. Patient was not compliant with activites that therapist wanted to do, and would have to settle with a different activity, regardless of the encouragement given. Patient was constantly concerned when the doctor was going to see them. As informed from speech therapy, patient had a fever, and reported lots of wheezing, and dizziness prior to activity. Patient performed bed activities to ease our way into other activities. After seemingly in a lot of pain, patient was still able ambulate long distances, without symptoms of dizziness, and wheezing seemed to decrease. Patient at times was a little unsteady with gait. Patient was left in room with family, call light, tray, and all needs met. PT Short Term Goals Short Term Goals Time Frame: Aug 13, 2021 Roll Left & Right: 6 Sit to lyin Lying to sitting on side of be: 6 Sit to stand: 4 (CGA) Chair/mso-uq-dsjjm transfer: 4 (SBA) Toilet transfer: 4 (SBA) Car transfer: 4 (SBA) 1 step (curb): 4 PT Care Home Goals Boom Man Goals PT Care Home Goals Time Frame: Aug 27, 2021 Roll Left & Right (QC): 6 Sit to Lying (QC): 6 Lying-Sitting on Side/Bed(QC): 6 Sit to Stand (QC): 6 Chair/Rly-po-Hazxh Xfer(QC): 6 Toilet Transfer (QC): 6 Car Transfer (QC): 6 Does the Patient Walk: Yes Walk 10 feet (QC): 6 Walk 50ft with 2 Turns (QC): 6 Walk 150 ft (QC): 6 Walking 10ft on Uneven Surface: 6 1 Step (curb) (QC): 4 4 Steps (QC): 4 12 Steps (QC): 88 Picking up an Object (QC): 6 Does the Pt use WC or Scooter?: No Wheel 50 feet with 2 turns (QC: 9 Type: N/A Wheel 150 feet: 9 Type: N/A PT Plan Problem List Problem List: Activity Tolerance, Functional Strength, Safety, Balance, Gait, Transfer, ROM Treatment/Plan Treatment Plan: Continue Plan of Care Treatment Plan: Bed Mobility, Education, Functional Activity Bree, Functional Strength, Group Therapy, Gait, Safety, Therapeutic Exercise, Transfers Treatment Duration: Aug 13, 2021 Frequency: At least 5 of 7 days/Wk (IRF) Estimated Hrs Per Day: 1.5 hours per day Patient and/or Family Agrees t: Yes Safety Risks/Education Patient Education: Gait Training, Transfer Techniques, Correct Positioning, Disease Process, Safety Issues Teaching Recipient: Patient Teaching Methods: Discussion Response to Teaching: Verbalize Understanding Time/GCodes Time In: 0900 Time Out: 1000 Total Billed Treatment Time: 60 Total Billed Treatment 1 visit EX 30min GT 30min GILDA SCHMIDT PT Aug 08, 2021 09:56
[2021-08-08] MEDS ORDERED: NITROGLYCERIN 0.4 MG SL TABS BTL 25'S SL PRN (10:30)
[2021-08-08] MEDS ORDERED: FUROSEMIDE 40 MG/4 ML INJ (LASIX) IVP NR (10:45)
--- NOTE | 2021-08-08 11:57 | Occupational Ther Daily Note ---
OT Current Status-Daily Note Subjective Pt began tx using restroom and nursing in room. OT began tx and nursing left. Pt agreed to OT tx. Mental Status/Objective Patient Orientation: Person, Place, Time, Situation ADL-Treatment Pt began tx on toilet, nursing stated to use call light before standing up from toilet. When OT entered room to check on pt in restroom, pt had performed hygiene and donned pants without supervision. CHUN educated pt on safety precautions when using the restroom with someone present to decrease any fall risk. Pt verbalized understanding. Pt then ambulated from toilet to EOB using FWW with CGA. Pt washed hair with hair cap with set up assist and then ambulated to sink side with FWW at [facility]. Pt finished grooming standing at sink side with SBA. Pt required frequent talking breaks and required minimal cues to begin task again. Upon finishing, pt ambulated to therapy gym with FWW with CGA. In therapy gym, pt participated in fine motor strengthening exercise by removing about 17 beads out of red theraputty. Pt then ambulated back to room with FWW with CGA and stated that she needed to use the restroom. Pt ambulated to toilet and stated that she did not want the CHUN present during toileting. CHUN reassured pt that once pt was seated, CHUN would give privacy and return once toileting is completed to ensure that pt is using correct safety measures during transfer.. Pt agreed to pull call light once finished. After 2 checkups during toileting made by CHUN to ensure pt would pull call light upon finishing, pt pulled call light after standing up from toilet. CHUN restated to the pt that she must pull light to ensure saftey and to decrease a fall risk. Pt stated that she "would remember that." pt ambulated to EOB with FWW at CGA and then supine in bed. Pt supine in bed with call light in reach and all needs met. Therapy Code Descriptions/Definitions Functional [place] Measure: 0=Not Assessed/NA 4=Minimal Assistance 1=Total Assistance 5=Supervision or Setup 2=Maximal Assistance 6=Modified [place] 3=Moderate Assistance 7=Complete IndependenceSCALE: Activities may be completed with or without assistive devices. 2-Tvshnsqmaz-fwkaome completes the activity by him/herself with no assistance from a helper. 5-Set-up or Clean-up Assistance-helper sets up or cleans up; patient completes activity. [place] assists only prior to or following the activity. 4-Supervision or Touching Assistance-helper provides verbal cues and/or touching/steadying and/or contact guard assistance as patient completes activity. Assistance may be provided throughout the activity or intermittently. 3-Partial/Moderate Assistance-helper does LESS THAN HALF the effort. [place] lifts, holds or supports trunk or limbs, but provides less than half the effort. 2-Substantial/Maximal Assistance-helper does MORE THAN HALF the effort. [place] lifts or holds trunk or limbs and provides more than half the effort. 4-Shesjiyts-abwtkz does ALL the effort. Patient does none of the effort to complete the activity. Or, the assistance of 2 or more helpers is required for the patient to complete the activity. If activity was not attempted, code reason: 7-Patient Refused. 9-Not Applicable-not attempted and the patient did not perform the activity before the current illness, exacerbation or injury. 10-Not Attempted due to Environmental Limitations-(lack of equipment, weather restraints, etc.). 88-Not Attempted due to Medical Conditions or Safety Concerns. Toilet Transfer (QC): 4 (CGA) Education OT Patient Education: Reviewed precautions, Safety issues, Transfer techniques Teaching Recipient: Patient Teaching Methods: Discussion Response to Teaching: Verbalize Understanding OT Short Term Goals Short Term Goals Time Frame: Aug 18, 2021 Eatin Oral hygiene: 4 Toileting hygiene: 3 Shower/bathe self: 3 Upper body dressin Lower body dressin Putting on/taking off footwear: 3 OT Head Holder Goals Head Holder Goals Time Frame: September 02, 2021 Eating (QC): 6 Oral Hygiene (QC): 6 Toileting Hygiene (QC): 6 Shower/Bathe Self (QC): 5 Upper Body Dressing (QC): 5 Lower Body Dressing (QC): 5 On/Off Footwear (QC): 5 1=Demonstrate adherence to instructed precautions during ADL tasks. 2=Patient will verbalize/demonstrate understanding of assistive devices/modifications for ADL. 3=Patient will improve strength/tolerance for activity to enable patient to perform ADL's. OT Education/Plan Problem List/Assessment Assessment: Decreased Activ Tolerance, Decreased Safety Aware, Decreased UE Strength, Impaired Cognition, Impaired Coordination, Impaired Funct Balance, Impaired I ADL's, Impaired Self-Care Skills Discharge Recommendations Plan/Recommendations: Continue POC Treatment Plan/Plan of Care Patient would benefit from OT for education, treatment and training to promote independence in ADL's, mobility, safety and/or upper extremity function for ADL's. Plan of Care: ADL Retraining, Cognitive Retraining, Functional Mobility, Group Exercise/Act as Ind, UE Funct Exercise/Act, UE Neuromus Re-Ed/Coord, W/C M anagement Training Treatment Duration: September 02, 2021 Frequency: At least 5 of 7 days/Wk (IRF) Estimated Hrs Per Day: 1.5 hours per day (60-90 min/day) Agreement: Yes Rehab Potential: Fair Time/GCodes Start Time: 11:00 Stop Time: 12:15 Total Time Billed (hr/min): 75 Billed Treatment Time 1 visit, 4 ADL (53 min) 1 FA (22min) Manda Bailon Aug 08, 2021 11:57
[2021-08-08] MEDS: COLESTIPOL 1 GM (COLESTID) TAB PO SCH ×2 (12:09→22:10)
--- NOTE | 2021-08-08 12:32 | ST Cognitive Linguistic Eval ---
Speech Evaluation-General Medical Diagnosis Sepsis, Encephalopathy Onset Date: Aug 02, 2021 Therapy Diagnosis Therapy Diagnosis: Intact Neurocognitive Skills Precautions Precautions: Fall Precautions/Isolations: Fall Prevention, Standard Precautions Referral Referring Physician: Dr. Kaur Tee Reason for Referral: Evaluation/Treatment Medical History Pertinent Medical History: Arthritis, CAD, Heart Failure, HTN Current History The patient is a 70 year-old female, who presented to [facility] with altered mental status delirium suspected secondary to pyelonephritis and E.coli bacteremia. Reviewed History: Yes Social History Current Living Status: Spouse Speech PLF-Current Status Prior Level of Function The patient was independent with all ADL's prior to admission to the hospital. The patient did not display prior difficulties or concerns with cognition, speech, language or swallowing. Subjective The patient was seated upright on the edge of her bed, awake and alert upon entrance to her room. The patient greeted the clinician appropriately and was agreeable to participation in the cognitive linguistic assessment. The patient's remains at bedside. The clinician evaluated the patient's swallowing function approximately three days ago. Throughout the evaluation, the patient displayed confusion and tangential thought processing. On today's date, the patient appears much impro alejandra with increased clarity throughout spontaneous conversation. Language Eval: Auditory Comprehends Simple Yes/No Ques: Functional Indent/Objects Multiple [place]: Functional Ident/Pics in Multiple [place]: Functional Follows 1-Step Commands: Functional Follows Complex Directions: Functional Follows General Conversations: Functional Language Eval: Verbal Language Completes Spontaneous Greeting: Functional Produces Auto, Serial Info: Functional Imitates Simple Words/Phrases: Functional Word Finding: Functional Requests Basic Needs: Functional States Basic Personal Info: Functional Expresses Complex Ideas: Functional Language Evaluation: Reading Follows Simple Written Direct: Functional Language Evaluation: Writing Writes to Simple Dictation: Functional Cognitive Patient Orientation The patient was independently oriented to self, location, month, day of week, d ate and year. Objective Cognitive Domain Attention: WNL Memory: WNL Problem Solving: Functional Executive Functions: WNL Visuospatial Skills: WNL Composite Severity Rating: WNL Clock Drawing Severity Rating: WNL Objective Formal/Standardized Tests [facility] Mental Status Examination (UMS) Results The patient demonstrated a result of +28/30 correlating to neurocognitive skills within normal limits. Oral Motor/Speech Production Dysarthria or apraxia of speech were not present during the evaluation. The patient remained 100% intelligible in known and unknown contexts. Impression The patient demonstrated intact neurocognitive skills. The patient had two points removed from her score secondary to an erroneous answer during story recall, however, the patient self-aware stating, "I know that isn't correct but I don't recall it either." Speech Patient Assess Expression of Ideas/Wants: Expression (4) Understanding Verbal Content: Understands (4) Brief Interview-Mental Status: Yes Repetition of Three Words: Three (3) Temporal Orientation: Year: Correct (3) Temporal Orientation: Month: Accurate within 5 days(2) Temporal Orientation: Day: Correct (1) Recall : Wear to say "Sock": Yes, no cue required (2) Recall : Color: Yes, no cue required (2) Recall : Bed: Yes, no cue required (2) Memory/Recall Ability: Current season, Location of own room, Staff names and faces, That he or she is in a hsp/hsp unit Speech-Plan Treatment Plan Speech Therapy Treatment Plan: Discontinue ST Treatment Duration: Aug 08, 2021 Frequency: 1 time per week Estimated Hrs Per Day: .5 hour per day Rehab Potential: Fair Safety Risks/Education Teaching Recipient: Patient Teaching Methods: Discussion Response to Teaching: Verbalize Understanding Education Topics Provided: Results of BRITT, Plan of Care Time Speech Therapy Time In: 08:30 Speech Therapy Time Out: 09:00 Total Billed Time: 30 Billed Treatment Time 1, WILLEM GUAN [facility] Aug 08, 2021 12:32
--- NOTE | 2021-08-08 12:40 | Consultation-Cardiology ---
HPI-Cardiology Cardiology Consultation Date of Consultation 08/08/21 Date of Admission Time Seen by Provider: 10:00 [facility] Cardiology consult requested for edema. Patient is a 70 year old female who is now in the inpatient rehab unit following admission to ICU for UTI and Sepsis on August 02. She reports feeling much stronger, less confused, and is gaining her strength back. Currently she denies chest pain, SOB, palpitations, syncope, dizziness, and headaches. Denies fevers, chills, cough, and dysuria. She complains of some bilateral lower extremity swelling which she reports is chronic. Tolerating po intake well. Working with PT and OT and doing well. Home Medications & Allergies Allergies: Coded Allergies: celecoxib (Verified Allergy, Severe, TAKES ASPIRIN AT HOME, 10/19/18) SOA penicillin G (Verified Allergy, Mild, 10/19/18) HIVES divalproex sodium (Verified Allergy, Unknown, 10/19/18) JOINT PAIN, "GUMS BECOME LOSE AROUND TEETH" meperidine (Verified Allergy, Unknown, 10/19/18) LOSES CONTROL OF HANDS AND ARMS morphine (Verified Allergy, Unknown, 10/19/18) FLU LIKE SYMPTOMS ofloxacin (Verified Allergy, Unknown, 10/19/18) TACHYCARDIA promethazine (Verified Allergy, Unknown, 05/28/08) propoxyphene (Verified Allergy, Unknown, 10/19/18) LOSES CONTROL OF HANDS AND ARMS telavancin (Unverified Adverse Reaction, Severe, 10/19/18) SUICIDAL lamotrigine (Unverified Adverse Reaction, Intermediate, [place], 10/19/18) SUICIDAL amitriptyline (Verified Adverse Reaction, Mild, 10/19/18) LOSES CONTROL OF HANDS AND ARMS azithromycin (Verified Adverse Reaction, Mild, 10/19/18) FLU LIKE SYMPTOMS erythromycin base (Verified Adverse Reaction, Mild, 10/19/18) NAUSEA, VOMITING promethazine HCl (Unverified Adverse Reaction, Mild, 10/19/18) HALLUCINATIONS Home Medication List Reviewed: Yes PGO-Cwqyar-Alotqm Hx Patient Social History Marital Status: Employed/Student: retired Recreational Drug Use: No Smoking Status: Never a Smoker 2nd Hand Smoke Exposure: No Recent Hopitalizations: No Have you traveled recently?: No Alcohol Use?: No Immunizations Up To Date Tetanus Booster (TDap): Less than 5yrs Date of Pneumonia Vaccine: Mar 01, 2018 Date of Influenza Vaccine: Feb 09, 2017 Family Medical History Significant Family History: No Pertinent Family Hx Family History: Arthritis 19 MOTHER G8 SISTER Cardiovascular disease 19 MOTHER G8 BROTHER G8 BROTHER Cirhosis of liver G8 SISTER Kidney disease G8 SISTER Ms Review of Systems-General Review of Systems Constitutional: see HPI; No dizziness, No malaise, No weakness EENTM: no symptoms reported; No blurred vision, No double vision, No nose congestion Respiratory: no symptoms reported; No cough, No dyspnea on exertion, No short of breath Cardiovascular: no symptoms reported; No chest pain; edema (bilateral lower extremities); No palpitations Gastrointestinal: no symptoms reported; No abdominal pain, No constipation, No diarrhea, No loss of appetite, No nausea, No vomiting Genitourinary: no symptoms reported; No decreased output, No dysuria, No frequency Musculoskeletal: no symptoms reported; No back pain, No joint pain Skin: no symptoms reported; No change in color, No change in hair/nails, No pruritus, No rash Psychiatric/Neurological: No Symptoms Reported; Denies Anxiety, Denies Depressed, Denies Headache, Denies Numbness, Denies Tingling All Other Systems Reviewed Negative Unless Noted: Yes Physical Exam Physical Exam Vital Signs Vital Signs - First Documented 08/06/21 08/06/21 14:00 19:59 Temp 36.9 Pulse 120 Resp 22 B/P (MAP) 134/88 (103) Pulse Ox 93 O2 Delivery Room Air Capillary Refill : Height, Weight, BMI Height: 5'6.00" Weight: 175lbs. 0.0oz. [id number]; 28.58 BMI Method:Stated General Appearance: No Apparent Distress, WD/WN, Chronically ill Eyes: Bilateral Eye Normal Inspection, Bilateral Eye PERRL, Bilateral Eye EOMI HEENT: PERRL/EOMI, Moist Mucous Membranes Neck: Full Range of Motion, Normal Inspection, Non Tender Respiratory: Chest Non Tender, Lungs Clear, Normal Breath Sounds, No Accessory Muscle Use; No Crackles, No Rhonci Cardiovascular: Regular Rate, Rhythm, No Murmur, Normal Peripheral Pulses, Other (BLE nonpitting edema) Gastrointestinal: Normal Bowel Sounds, Non Tender, Soft; No Distended, No Guarding, No Tenderness Rectal: Deferred Back: Normal Inspection, No CVA Tenderness Extremity: Normal Capillary Refill, Normal Range of Motion, Non Tender, No Calf Tenderness Neurologic/Psychiatric: Alert, No Motor/Sensory Deficits, Normal Mood/Affect Skin: Normal Color, Warm/Dry, Ecchymosis Lymphatic: No Adenopathy (Head and Neck) A/P-Cardiology Assessment/Plan Bilateral lower extremity edema, appears to be a chronic issue, likely due to venous insufficiency S/P recent UTI and Sepsis with delirium, resolved Anemia of undetermined etiology, managed and treated by Dr Tee Sinus tachycardia - likely secondary to sepsis, resolved Hypertension, continue to monitor - intolerant to doxazosin d/t profound dizziness H/o mild, chronic diastolic CHF CAD. - Card cath of 01/10/19: patent stent (done in [place], [place] in 2006) in the ostial/prox RCA, no significant CAD, LVEF 65%, elevated LVEDP, no renal artery stenosis - Echocardiogram of May 10, 2018 showed LVEF 60-65%. Mild MR and AoR. PASP 30-35 mmHg Labile hypertension and white-coat hypertension Hyperlipidemia being treated with statin therapy - followed by her PCP Bipolar disorder Arthritis of unknown type for which she takes Plaquenil and sulfasalazine, followed by Dr Lazaro (her biomedical engineering technician at [facility]) Elevated body mass index of approx 29 IBS for which she takes Bentyl PFT's from 08-16-2013 showed spirometry WNL. Lung volumes WNL, diffusion capacity WNL Carotid u/s from 05-31-15 showed less than 40% R ICA stenosis and approx 60% L ICA stenosis for which she is following with Dr. Lechuga Chronic gen fatigue. TSH normal on 03/30/17 (3.11) Multiple medication intolerances Supervisory-Addendum Brief Verification & Attestation Participated in pt care: history, MDM, physical Personally performed: exam, history, supervision of care Care discussed with: Medical Student Procedures: n/a I personally interviewed and examined the patient and discussed the case with the medical student. Our assessment and plan are as outlined above LIZA ROJAS MED STUDENT Aug 08, 2021 12:40 CHAVEZ LR MD FACP [facility] CCDS Aug 08, 2021 14:39
[2021-08-08] MEDS ORDERED: NON-FORMULARY MEDICATION 1 EA EA (Dicyclomine HCl 20 MG) PO SCH (13:00)
[2021-08-08] MEDS ORDERED: BACLOFEN 10 MG (LIORESAL) TAB PO SCH (13:00)
[2021-08-08] MEDS ORDERED: GABAPENTIN 600 MG (NEURONTIN) TAB PO SCH (13:00)
--- NOTE | 2021-08-08 13:52 | Physical Therapy Daily Note ---
PT Daily Note-Current Subjective Patient had to use the restroom prior to starting. No new complaints reported. Pain Location: No Pain Reported Mental Status Patient Orientation: Person, Confused, Place, Situation Transfers SCALE: Activities may be completed with or without assistive devices. 3-Ccczjurjww-odizjed completes the activity by him/herself with no assistance from a helper. 5-Set-up or Clean-up Assistance-helper sets up or cleans up; patient completes activity. [place] assists only prior to or following the activity. 4-Supervision or Touching Assistance-helper provides verbal cues and/or touching/steadying and/or contact guard assistance as patient completes activity. Assistance may be provided throughout the activity or intermittently. 3-Partial/Moderate Assistance-helper does LESS THAN HALF the effort. May lifts, holds or supports trunk or limbs, but provides less than half the effort. 2-Substantial/Maximal Assistance-helper does MORE THAN HALF the effort. May lifts or holds trunk or limbs and provides more than half the effort. 9-Hztjjhcbb-vfwjbp does ALL the effort. Patient does none of the effort to complete the activity. Or, the assistance of 2 or more helpers is required for the patient to complete the activity. If activity was not attempted, code reason: 7-Patient Refused. 9-Not Applicable-not attempted and the patient did not perform the activity before the current illness, exacerbation or injury. 10-Not Attempted due to Environmental Limitations-(lack of equipment, weather restraints, etc.). 88-Not Attempted due to Medical Conditions or Safety Concerns. Sit to Stand (QC): 4 SBA Weight Bearing Full Weight Bearing Full Weight Bearing Gait Training Does the Patient Walk?: Yes Distance: 300' Walk 10 feet (QC): 4 Walk 50 ft with 2 Turns(QC): 4 Walk 150 ft (QC): 4 Gait Assistive Device: FWW CGA Wheelchair Training Does the Pt Use a Wheelchair?: No Type of Wheelchair: N/A Treatments Ambulation Assessment Current Status: Fair Progress Patient can walk with a normal speed using FWW and CGA, but has intermittent bouts of unsteadiness. Patient was left in bed with call light tray and all needs met. PT Short Term Goals Short Term Goals Time Frame: Aug 13, 2021 Roll Left & Right: 6 Sit to lyin Lying to sitting on side of be: 6 Sit to stand: 4 (CGA) Chair/qvw-dm-uridx transfer: 4 (SBA) Toilet transfer: 4 (SBA) Car transfer: 4 (SBA) 1 step (curb): 4 PT Care Home Goals Marketing Instructor Goals PT Marketing Instructor Goals Time Frame: Aug 27, 2021 Roll Left & Right (QC): 6 Sit to Lying (QC): 6 Lying-Sitting on Side/Bed(QC): 6 Sit to Stand (QC): 6 Chair/Mbb-an-Ripgc Xfer(QC): 6 Toilet Transfer (QC): 6 Car Transfer (QC): 6 Does the Patient Walk: Yes Walk 10 feet (QC): 6 Walk 50ft with 2 Turns (QC): 6 Walk 150 ft (QC): 6 Walking 10ft on Uneven Surface: 6 1 Step (curb) (QC): 4 4 Steps (QC): 4 12 Steps (QC): 88 Picking up an Object (QC): 6 Does the Pt use WC or Scooter?: No Wheel 50 feet with 2 turns (QC: 9 Type: N/A Wheel 150 feet: 9 Type: N/A PT Plan Problem List Problem List: Activity Tolerance, Functional Strength, Safety, Balance, Gait, Transfer, Bed Mobility, ROM Treatment/Plan Treatment Plan: Continue Plan of Care Treatment Plan: Bed Mobility, Education, Functional Activity Bree, Functional Strength, Group Therapy, Gait, Safety, Therapeutic Exercise, Transfers Treatment Duration: Aug 13, 2021 Frequency: At least 5 of 7 days/Wk (IRF) Estimated Hrs Per Day: 1.5 hours per day Patient and/or Family Agrees t: Yes Safety Risks/Education Patient Education: Gait Training, Transfer Techniques, Safety Issues Teaching Recipient: Patient Teaching Methods: Discussion Response to Teaching: Verbalize Understanding, Reinforcement Needed Time/GCodes Time In: 1330 Time Out: 1345 Total Billed Treatment Time: 15 Total Billed Treatment 1 visit GT 15min GILDA SCHMIDT PT Aug 08, 2021 13:52
[2021-08-08] MEDS: HYDROXYCHLOROQUINE 200 MG (PLAQUENIL) TAB PO SCH (16:52)
[2021-08-08] MEDS: ACETAMINOPHEN 325 MG TABLET PO PRN (17:50)
[2021-08-08] MEDS ORDERED: sulfaSALAzine 500 MG (AZULFIDINE) TAB PO SCH (18:00)
[2021-08-08 19:41] VITALS: BP 159/74
[2021-08-08] MEDS ORDERED: SIMvastatin 20 MG (ZOCOR) TAB PO SCH (21:00)
[2021-08-08] MEDS: SIMvastatin 20 MG (ZOCOR) TAB PO SCH (22:09)
[2021-08-09] MEDS: ACETAMINOPHEN 325 MG TABLET PO PRN ×2 (02:51→19:42)
[2021-08-09] MEDS: LOPERAMIDE 2 MG (IMODIUM) TABLET PO PRN ×3 (02:51→19:42)
[2021-08-09 05:51] LABS: BASOPHILS % (AUTO) 1 % (0-10); EOSINOPHILS # (AUTO) 0.2 10^3/uL (0.0-0.3); EOSINOPHILS % (AUTO) 3 % (0-10); HEMATOCRIT 22 % (35-52); HEMOGLOBIN 7.4 g/dL (11.5-16.0); LYMPHOCYTES # (AUTO) 0.9 10^3/uL (1.0-4.0); LYMPHOCYTES % (AUTO) 10 % (12-44); MEAN CORPUSCULAR HEMOGLOBIN 32 pg (25-34); MEAN CORPUSCULAR HGB CONC 33 g/dL (32-36); MEAN CORPUSCULAR VOLUME 97 fL (80-99); MEAN PLATELET VOLUME 9.1 fL (9.0-12.2); MONOCYTES # (AUTO) 0.8 10^3/uL (0.0-1.0); MONOCYTES % (AUTO) 9 % (0-12); NEUTROPHILS # (AUTO) 6.5 10^3/uL (1.8-7.8); NEUTROPHILS % (AUTO) 76 % (42-75); PLATELET COUNT 326 10^3/uL (130-400); WHITE BLOOD COUNT 8.6 10^3/uL (4.3-11.0)
[2021-08-09 06:01] LABS: ALBUMIN 2.6 GM/DL (3.2-4.5); POTASSIUM 3.5 MMOL/L (3.6-5.0)
[2021-08-09 06:03] LABS: CALCIUM 8.3 MG/DL (8.5-10.1)
--- NOTE | 2021-08-09 06:03 | PM&R Progress Note ---
Subjective HPI/CC On Admission Date Seen by Provider: Aug 09, 2021 Time Seen by Provider: 11:30 Subjective/Events-last exam 08/09/2021: Patient dramatically improved Very appreciative of the care she has received here Daughter and at the bedside No pain is reported Bowel regimen maintained which includes Colestid twice daily Still on IV antibiotics Giving 1 dose of IV iron 08/08/2021: Patient dramatically improved with delirium Now her bipolar seems to be very much in the focus Very felipe and demanding and unhappy received some reviewed texts typical for her bipolar flares Daughter who is a surgeon from [place] is at the bedside along with her son We will continue to be supportive and provide reassurance Fever noted but expected Maintain on Rocephin We will check labs in the morning Frustrated with edema of legs so I did order Lasix 40 mg IV x1 consulted Dr. Galan We will call 2 physicians she missed office visits with to explain why she missed her appointments We will restart Colestid for colitis even though she is not refilled in 4 months it appears she had some stockpiled Review of Systems General: Fatigue, Malaise Neurological: Weakness Objective Exam Vital Signs Vital Signs Date Time Temp Pulse Resp B/P (MAP) Pulse Ox O2 Delivery O2 Flow Rate FiO2 08/09/21 21:06 37.3 08/09/21 20:00 100 Room Air 08/09/21 19:10 93 20 146/77 (100) Capillary Refill : General Appearance: No Apparent Distress, WD/WN, Chronically ill, Other (Subtle confusion) HEENT: PERRL/EOMI, Normal ENT Inspection, Pharynx Normal Neck: Full Range of Motion, Normal Inspection, Non Tender, Supple, Carotid Bruit Respiratory: Chest Non Tender, Lungs Clear, Normal Breath Sounds, No Accessory Muscle Use, No Respiratory Distress Cardiovascular: Regular Rate, Rhythm, No Edema, No Gallop, No JVD, No Murmur, Normal Peripheral Pulses Gastrointestinal: Normal Bowel Sounds, No Organomegaly, No Pulsatile Mass, Non Tender, Soft Rectal: Deferred Back: Normal Inspection, No CVA Tenderness, No Vertebral Tenderness Extremity: Normal Capillary Refill, Normal Inspection, Normal Range of Motion, Non Tender, No Calf Tenderness, No Pedal Edema Neurologic/Psychiatric: Alert, No Motor/Sensory Deficits, Normal Mood/Affect, portable track crew chief II-XII Norm as Tested, Abnormal Gait, Depressed Affect, Disoriented, Motor Weakness (Generalized) Skin: Normal Color, Warm/Dry Lymphatic: No Adenopathy Results/Procedures Lab Patient resulted labs reviewed. FIM Transfers Therapy Code Descriptions/Definitions Functional [place] Measure: 0=Not Assessed/NA 4=Minimal Assistance 1=Total Assistance 5=Supervision or Setup 2=Maximal Assistance 6=Modified [place] 3=Moderate Assistance 7=Complete IndependenceSCALE: Activities may be completed with or without assistive devices. 6-Esijlxfrxf-ylcgweh completes the activity by him/herself with no assistance from a helper. 5-Set-up or Clean-up Assistance-helper sets up or cleans up; patient completes activity. [place] assists only prior to or following the activity. 4-Supervision or Touching Assistance-helper provides verbal cues and/or touching/steadying and/or contact guard assistance as patient completes activity. Assistance may be provided throughout the activity or intermittently. 3-Partial/Moderate Assistance-helper does LESS THAN HALF the effort. [place] lifts, holds or supports trunk or limbs, but provides less than half the effort. 2-Substantial/Maximal Assistance-helper does MORE THAN HALF the effort. [place] lifts or holds trunk or limbs and provides more than half the effort. 6-Plgsytmqg-tscezd does ALL the effort. Patient does none of the effort to complete the activity. Or, the assistance of 2 or more helpers is required for the patient to complete the activity. If activity was not attempted, code reason: 7-Patient Refused. 9-Not Applicable-not attempted and the patient did not perform the activity before the current illness, exacerbation or injury. 10-Not Attempted due to Environmental Limitations-(lack of equipment, weather restraints, etc.). 88-Not Attempted due to Medical Conditions or Safety Concerns. Roll Left to Right (QC): 6 Sit to Lying (QC): 6 Sit to Stand (QC): 4 Chair/Gac-sy-Wycru Xfer(QC): 4 Car Transfer (QC): 4 Gait Training Does the Patient Walk?: Yes Distance: 300' Walk 10 feet (QC): 4 Walk 50 ft with 2 Turns(QC): 4 Walk 150 ft (QC): 4 Walking 10ft/uneven surface-QC: 4 Gait Assistive Device: FWW Wheelchair Training Does the Pt Use a Wheelchair?: No Wheel 50 ft with 2 turns (QC): 3 Wheel 150 ft (QC): 88 Type of Wheelchair: N/A Stair Training #of Steps: 12 1 Step (curb) (QC): 4 4 Steps (QC): 4 12 Steps (QC): 4 Stairs: Pattern: Reciprocal Balance Picking up an Object (QC): 4 ADL-Treatment Eating (QC): 4 Oral Hygiene (QC): 5 (set up) Shower/Bathe Self (QC): 1 (pt required assist 2x due to decreased standing balance to wash bottom) Upper Body Dressing (QC): 3 (Surinder) Lower Body Dressing (QC): 2 (ModA) On/Off Footwear (QC): 4 (SBA) Toileting Hygiene (QC): 2 (ModA) Toilet Transfer (QC): 4 (CGA) Assessment/Plan Assessment and Plan Assess & Plan/Chief Complaint Assessment: Sepsis Severe delirium now resolving Sinus tachycardia UTI/pyelonephritis with gram-negative bacteremia narrowed antibiotics to Rocephin now Volume depletion requiring volume resuscitation now causing edema with third spacing so initiated Lasix 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 Galan Hypertension malignant type Hyperlipidemia Chronic cough Bipolar disorder with current flare Autoimmune connective tissue disease managed at Plan: Supportive care Consult cardiology Antibiotics DVT prophylaxis Aggressive PT and OT Speech therapy for cognitive treatment DC catheter Evaluate meds 08/08/2021: IV Lasix Supportive care for bipolar flare Continue Rocephin Monitor closely 08/09/2021: Supportive care Continue Rocephin (1) Delirium Status: Acute (2) Sepsis (3) Urinary tract infection Status: Acute (4) HTN (hypertension) (5) Mixed hyperlipidemia (6) Chronic kidney disease, stage 3 (7) Primary hypertension (8) Macrocytic anemia (9) Coronary artery disease without angina pectoris (10) Bipolar disorder Status: Chronic (11) Encephalopathy acute (12) Sinus tachycardia SUZE COOPER DO Aug 09, 2021 06:02
[2021-08-09 06:04] LABS: TOTAL PROTEIN 5.5 GM/DL (6.4-8.2)
[2021-08-09 06:05] LABS: BILIRUBIN,TOTAL 0.4 MG/DL (0.1-1.0)
[2021-08-09 06:08] LABS: CREATININE SERUM 0.82 MG/DL (0.60-1.30)
[2021-08-09 06:10] LABS: MAGNESIUM 1.7 MG/DL (1.6-2.4)
[2021-08-09 06:22] LABS: ABSOLUTE RETIC # 74 10e9/uL (24-90); RETICULOCYTE % 3.17 % (0.50-2.40)
[2021-08-09 06:46] LABS: ANISOCYTOSIS SLIGHT; BAND NEUTROPHILS 1 %; EOSINOPHILS % (MANUAL) 4 %; HYPOCHROMASIA SLIGHT; LYMPHOCYTES % (MANUAL) 12 %; MONOCYTES % (MANUAL) 6 %; NEUTROPHILS % (MANUAL) 77 %
[2021-08-09] MEDS: KCL 20 MEQ TAB (K-DUR) PO SCH (06:50)
[2021-08-09 07:09] VITALS: BP 153/72
[2021-08-09] MEDS: polyethylene glycoL POWDER 17 GM (MIRALAX) PACK PO SCH ×2 (08:30→19:30)
[2021-08-09] MEDS: SENNOSIDES 8.6 MG (SENOKOT) TAB PO SCH ×2 (08:32→19:31)
[2021-08-09] MEDS: DOCUSATE SODIUM 100 MG (COLACE) CAP PO SCH ×2 (08:32→19:29)
[2021-08-09] MEDS ORDERED: NON-FORMULARY MEDICATION 1 EA EA (Citalopram Hydrobromide (Celexa) 40 MG) PO SCH (09:00)
[2021-08-09] MEDS ORDERED: OLMESARTAN 20 MG (BENICAR) TABLET PO SCH (09:00)
[2021-08-09] MEDS ORDERED: NON-FORMULARY MEDICATION 1 EA EA (Potassium Chloride (K-Tab ER) 20 MEQ) PO SCH (09:00)
[2021-08-09] MEDS ORDERED: BISOPROLOL FUMARATE PO SCH (09:00)
[2021-08-09] MEDS ORDERED: PANTOPRAZOLE 40 MG (PROTONIX) TAB PO SCH (09:00)
[2021-08-09] MEDS ORDERED: IRON SUCROSE 200 MG/10 ML (VENOFER) VIAL IV ONE (09:00)
[2021-08-09] MEDS ORDERED: NON-FORMULARY MEDICATION 1 EA EA (Metoprolol Succinate 200 MG) PO SCH (09:00)
[2021-08-09] MEDS ORDERED: [UNRECOGNIZED DRUG - OTHER] PO SCH (09:00)
[2021-08-09] MEDS ORDERED: HCTZ PO SCH (09:00)
[2021-08-09] MEDS: sulfaSALAzine 500 MG (AZULFIDINE) TAB PO SCH ×2 (09:11→18:01)
[2021-08-09] MEDS: meTOprolol SUCCINATE 100 MG (TOPROL XL) TAB PO SCH (09:11)
[2021-08-09] MEDS: ASPIRIN E.C. 81 MG (ECOTRIN) TAB PO SCH (09:11)
[2021-08-09] MEDS: GABAPENTIN 600 MG (NEURONTIN) TAB PO SCH ×3 (09:11→19:36)
[2021-08-09] MEDS: amLODIPine 5 MG (NORVASC) TAB PO SCH (09:11)
[2021-08-09] MEDS: LOSARTAN 100 MG (COZAAR) TABLET PO SCH (09:11)
[2021-08-09] MEDS: PANTOPRAZOLE 40 MG (PROTONIX) TAB PO SCH (09:11)
[2021-08-09] MEDS: FUROSEMIDE 40 MG (LASIX) TAB PO SCH (09:12)
[2021-08-09] MEDS: FAMOTIDINE 20 MG (PEPCID) TABLET PO SCH (09:12)
[2021-08-09] MEDS: HYDROXYCHLOROQUINE 200 MG (PLAQUENIL) TAB PO SCH ×2 (09:13→18:00)
[2021-08-09] MEDS: ENOXAPARIN 40 MG/0.4 ML (LOVENOX) SYR SC SCH (09:13)
[2021-08-09] MEDS: DICYCLOMINE 10 MG (BENTYL) CAP PO SCH ×2 (09:13→19:35)
[2021-08-09] MEDS: COLESTIPOL 1 GM (COLESTID) TAB PO SCH ×2 (09:15→19:36)
[2021-08-09] MEDS: cefTRIAXone 1 GM PRE-MIX 50 ML IV SCH (09:20)
[2021-08-09] MEDS ORDERED: IRON SUCROSE 200 MG/10 ML (VENOFER) VIAL IV NR (12:30)
--- NOTE | 2021-08-09 12:30 | Physical Therapy Daily Note ---
PT Daily Note-Current Subjective Patient lying supine in bed upon PT arrival, agreeable to treatment however reports she has to use the BR first. Mental Status Patient Orientation: Person, Place, Time, Situation Transfers SCALE: Activities may be completed with or without assistive devices. 2-Abgififufh-mwhsleu completes the activity by him/herself with no assistance from a helper. 5-Set-up or Clean-up Assistance-helper sets up or cleans up; patient completes activity. [place] assists only prior to or following the activity. 4-Supervision or Touching Assistance-helper provides verbal cues and/or touching/steadying and/or contact guard assistance as patient completes activity. Assistance may be provided throughout the activity or intermittently. 3-Partial/Moderate Assistance-helper does LESS THAN HALF the effort. [place] lifts, holds or supports trunk or limbs, but provides less than half the effort. 2-Substantial/Maximal Assistance-helper does MORE THAN HALF the effort. [place] lifts or holds trunk or limbs and provides more than half the effort. 0-Eocjprgqb-quvfjq does ALL the effort. Patient does none of the effort to complete the activity. Or, the assistance of 2 or more helpers is required for the patient to complete the activity. If activity was not attempted, code reason: 7-Patient Refused. 9-Not Applicable-not attempted and the patient did not perform the activity before the current illness, exacerbation or injury. 10-Not Attempted due to Environmental Limitations-(lack of equipment, weather restraints, etc.). 88-Not Attempted due to Medical Conditions or Safety Concerns. Roll Left & Right (QC): 6 Sit to Lying (QC): 6 Lying to Sitting/Side of Bed(Q: 6 Sit to Stand (QC): 6 Weight Bearing Full Weight Bearing Full Weight Bearing Gait Training Does the Patient Walk?: Yes Distance: 450 feet Walk 10 feet (QC): 6 Walk 50 ft with 2 Turns(QC): 4 Walk 150 ft (QC): 4 Gait Assistive Device: FWW Assessment Current Status: Fair Progress Patient tolerated treatment well. Demonstrates good overall bed mobility, however minimally unsteady initially upon standing. Patient requires SBA for all observed transfers. Patient requires SBA for ambulation into the BR. [employer] informs this PT that the patient is ready post BR. Patient ambulates 450 feet with FWW, with SBA and verbal cues for safety, progression, balance and posture. Patient sitting at edge of the bed post treatment with all needs met, call light in reach, nurse notified, in the room. PT Short Term Goals Short Term Goals Time Frame: Aug 13, 2021 Roll Left & Right: 6 Sit to lyin Lying to sitting on side of be: 6 Sit to stand: 4 (CGA) Chair/hkc-mj-xbztc transfer: 4 (SBA) Toilet transfer: 4 (SBA) Car transfer: 4 (SBA) 1 step (curb): 4 PT Fdc Goals Fdc Goals PT Fdc Goals Time Frame: Aug 27, 2021 Roll Left & Right (QC): 6 Sit to Lying (QC): 6 Lying-Sitting on Side/Bed(QC): 6 Sit to Stand (QC): 6 Chair/Klo-rh-Uxbvd Xfer(QC): 6 Toilet Transfer (QC): 6 Car Transfer (QC): 6 Does the Patient Walk: Yes Walk 10 feet (QC): 6 Walk 50ft with 2 Turns (QC): 6 Walk 150 ft (QC): 6 Walking 10ft on Uneven Surface: 6 1 Step (curb) (QC): 4 4 Steps (QC): 4 12 Steps (QC): 88 Picking up an Object (QC): 6 Does the Pt use WC or Scooter?: No Wheel 50 feet with 2 turns (QC: 9 Type: N/A Wheel 150 feet: 9 Type: N/A PT Plan Treatment/Plan Treatment Plan: Continue Plan of Care Treatment Plan: Bed Mobility, Education, Functional Activity Bree, Functional Strength, Group Therapy, Gait, Safety, Therapeutic Exercise, Transfers Treatment Duration: Aug 13, 2021 Frequency: 6 times per week Estimated Hrs Per Day: 1.5 hours per day Patient and/or Family Agrees t: Yes Safety Risks/Education Patient Education: Gait Training Teaching Recipient: Patient Teaching Methods: Demonstration, Discussion Response to Teaching: Verbalize Understanding, Return Demonstration Time/GCodes Time In: 1143 Time Out: 1227 Total Billed Treatment Time: 25 Total Billed Treatment Visit, Gait (2) LENA SOSA PT Aug 09, 2021 12:30
[2021-08-09] MEDS: CATHETER FLUSH 10 ML SYR IVP SCH ×2 (13:49→19:36)
[2021-08-09] MEDS: guaiFENesin/DM (ROBITUSSIN DM) 10 ML UDC PO PRN ×2 (16:20→21:06)
[2021-08-09 19:10] VITALS: BP 146/77
[2021-08-09] MEDS: SIMvastatin 20 MG (ZOCOR) TAB PO SCH (19:34)
[2021-08-10] MEDS: LOPERAMIDE 2 MG (IMODIUM) TABLET PO PRN ×3 (02:28→22:10)
[2021-08-10] MEDS: guaiFENesin/DM (ROBITUSSIN DM) 10 ML UDC PO PRN ×5 (03:14→22:10)
[2021-08-10] MEDS: CATHETER FLUSH 10 ML SYR IVP SCH ×3 (05:39→20:19)
[2021-08-10] MEDS: KCL 20 MEQ TAB (K-DUR) PO SCH (05:39)
[2021-08-10 07:24] VITALS: BP 146/69
--- NOTE | 2021-08-10 07:39 | PM&R Progress Note ---
Subjective HPI/CC On Admission Date Seen by Provider: Aug 10, 2021 Time Seen by Provider: 12:30 Subjective/Events-last exam 08/10/2021: Patient dramatically improved Cough is an issue which is chronic and we have pursued every avenue regarding this Robitussin cough syrup ordered No pain is reported Rocephin continues 08/09/2021: Patient dramatically improved Very appreciative of the care she has received here Daughter and at the bedside No pain is reported Bowel regimen maintained which includes Colestid twice daily Still on IV antibiotics Giving 1 dose of IV iron 08/08/2021: Patient dramatically improved with delirium Now her bipolar seems to be very much in the focus Very felipe and demanding and unhappy received some reviewed texts typical for her bipolar flares Daughter who is a surgeon from [place] is at the bedside along with her son We will continue to be supportive and provide reassurance Fever noted but expected Maintain on Rocephin We will check labs in the morning Frustrated with edema of legs so I did order Lasix 40 mg IV x1 consulted Dr. Galan We will call 2 physicians she missed office visits with to explain why she missed her appointments We will restart Colestid for colitis even though she is not refilled in 4 months it appears she had some stockpiled Review of Systems General: Fatigue, Malaise Objective Exam Vital Signs Vital Signs Date Time Temp Pulse Resp B/P (MAP) Pulse Ox O2 Delivery O2 Flow Rate FiO2 08/11/21 01:12 37.2 08/10/21 20:10 Room Air 08/10/21 20:08 81 16 160/69 (99) 98 Capillary Refill : General Appearance: No Apparent Distress, WD/WN, Chronically ill, Other (Subtle confusion) HEENT: PERRL/EOMI, Normal ENT Inspection, Pharynx Normal Neck: Full Range of Motion, Normal Inspection, Non Tender, Supple, Carotid Bruit Respiratory: Chest Non Tender, Lungs Clear, Normal Breath Sounds, No Accessory Muscle Use, No Respiratory Distress Cardiovascular: Regular Rate, Rhythm, No Edema, No Gallop, No JVD, No Murmur, Normal Peripheral Pulses Gastrointestinal: Normal Bowel Sounds, No Organomegaly, No Pulsatile Mass, Non Tender, Soft Rectal: Deferred Back: Normal Inspection, No CVA Tenderness, No Vertebral Tenderness Extremity: Normal Capillary Refill, Normal Inspection, Normal Range of Motion, Non Tender, No Calf Tenderness, No Pedal Edema Neurologic/Psychiatric: Alert, No Motor/Sensory Deficits, Normal Mood/Affect, 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 FIM Transfers Therapy Code Descriptions/Definitions Functional [place] Measure: 0=Not Assessed/NA 4=Minimal Assistance 1=Total Assistance 5=Supervision or Setup 2=Maximal Assistance 6=Modified [place] 3=Moderate Assistance 7=Complete IndependenceSCALE: Activities may be completed with or without assistive devices. 6-Ozwovwruzc-shtrzkq completes the activity by him/herself with no assistance from a helper. 5-Set-up or Clean-up Assistance-helper sets up or cleans up; patient completes activity. [place] assists only prior to or following the activity. 4-Supervision or Touching Assistance-helper provides verbal cues and/or touching/steadying and/or contact guard assistance as patient completes activity. Assistance may be provided throughout the activity or intermittently. 3-Partial/Moderate Assistance-helper does LESS THAN HALF the effort. [place] lifts, holds or supports trunk or limbs, but provides less than half the effort. 2-Substantial/Maximal Assistance-helper does MORE THAN HALF the effort. [place] lifts or holds trunk or limbs and provides more than half the effort. 2-Aogudhrdc-apglnj does ALL the effort. Patient does none of the effort to complete the activity. Or, the assistance of 2 or more helpers is required for the patient to complete the activity. If activity was not attempted, code reason: 7-Patient Refused. 9-Not Applicable-not attempted and the patient did not perform the activity before the current illness, exacerbation or injury. 10-Not Attempted due to Environmental Limitations-(lack of equipment, weather restraints, etc.). 88-Not Attempted due to Medical Conditions or Safety Concerns. Roll Left to Right (QC): 6 Sit to Lying (QC): 6 Sit to Stand (QC): 6 Chair/Jig-xc-Nimxt Xfer(QC): 4 Car Transfer (QC): 4 Gait Training Does the Patient Walk?: Yes Distance: 450 feet Walk 10 feet (QC): 6 Walk 50 ft with 2 Turns(QC): 4 Walk 150 ft (QC): 4 Walking 10ft/uneven surface-QC: 4 Gait Assistive Device: FWW Wheelchair Training Does the Pt Use a Wheelchair?: No Wheel 50 ft with 2 turns (QC): 3 Wheel 150 ft (QC): 88 Type of Wheelchair: N/A Stair Training #of Steps: 12 1 Step (curb) (QC): 4 4 Steps (QC): 4 12 Steps (QC): 4 Stairs: Pattern: Reciprocal Balance Picking up an Object (QC): 4 ADL-Treatment Eating (QC): 4 Oral Hygiene (QC): 5 (set up) Shower/Bathe Self (QC): 1 (pt required assist 2x due to decreased standing balance to wash bottom) Upper Body Dressing (QC): 3 (Surinder) Lower Body Dressing (QC): 2 (ModA) On/Off Footwear (QC): 4 (SBA) Toileting Hygiene (QC): 2 (ModA) Toilet Transfer (QC): 4 (CGA) Assessment/Plan Assessment and Plan Assess & Plan/Chief Complaint Assessment: Sepsis Severe delirium now resolving Sinus tachycardia UTI/pyelonephritis with gram-negative bacteremia narrowed antibiotics to Rocephin now Volume depletion requiring volume resuscitation now causing edema with third spacing so initiated Lasix 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 Galan Hypertension malignant type Hyperlipidemia Chronic cough Bipolar disorder with current flare Autoimmune connective tissue disease managed at Plan: Supportive care Consult cardiology Antibiotics DVT prophylaxis Aggressive PT and OT Speech therapy for cognitive treatment DC catheter Evaluate meds 08/08/2021: IV Lasix Supportive care for bipolar flare Continue Rocephin Monitor closely 08/09/2021: Supportive care Continue Rocephin 08/10/2021: Supportive care Rocephin Robitussin (1) Delirium Status: Acute (2) Sepsis (3) Urinary tract infection Status: Acute (4) HTN (hypertension) (5) Mixed hyperlipidemia (6) Chronic kidney disease, stage 3 (7) Primary hypertension (8) Macrocytic anemia (9) Coronary artery disease without angina pectoris (10) Bipolar disorder Status: Chronic (11) Encephalopathy acute (12) Sinus tachycardia SUZE COOPER DO Aug 10, 2021 07:39
[2021-08-10] MEDS: HYDROXYCHLOROQUINE 200 MG (PLAQUENIL) TAB PO SCH ×2 (08:37→18:30)
[2021-08-10] MEDS: DICYCLOMINE 10 MG (BENTYL) CAP PO SCH ×2 (08:37→20:18)
[2021-08-10] MEDS: LOSARTAN 100 MG (COZAAR) TABLET PO SCH (08:37)
[2021-08-10] MEDS: PANTOPRAZOLE 40 MG (PROTONIX) TAB PO SCH (08:37)
[2021-08-10] MEDS: meTOprolol SUCCINATE 100 MG (TOPROL XL) TAB PO SCH (08:37)
[2021-08-10] MEDS: ASPIRIN E.C. 81 MG (ECOTRIN) TAB PO SCH (08:37)
[2021-08-10] MEDS: FUROSEMIDE 40 MG (LASIX) TAB PO SCH (08:37)
[2021-08-10] MEDS: GABAPENTIN 600 MG (NEURONTIN) TAB PO SCH ×3 (08:37→20:17)
[2021-08-10] MEDS: amLODIPine 5 MG (NORVASC) TAB PO SCH (08:38)
[2021-08-10] MEDS: ENOXAPARIN 40 MG/0.4 ML (LOVENOX) SYR SC SCH (08:38)
[2021-08-10] MEDS: FAMOTIDINE 20 MG (PEPCID) TABLET PO SCH (08:38)
[2021-08-10] MEDS: sulfaSALAzine 500 MG (AZULFIDINE) TAB PO SCH ×2 (08:38→18:30)
[2021-08-10] MEDS: COLESTIPOL 1 GM (COLESTID) TAB PO SCH ×2 (08:39→20:18)
[2021-08-10] MEDS: polyethylene glycoL POWDER 17 GM (MIRALAX) PACK PO SCH ×2 (09:00→20:19)
[2021-08-10] MEDS: SENNOSIDES 8.6 MG (SENOKOT) TAB PO SCH ×2 (09:00→20:19)
[2021-08-10] MEDS: DOCUSATE SODIUM 100 MG (COLACE) CAP PO SCH ×2 (09:00→20:19)
[2021-08-10] MEDS: cefTRIAXone 1 GM PRE-MIX 50 ML IV SCH (09:07)
[2021-08-10 20:08] VITALS: BP 160/69
[2021-08-10] MEDS: SIMvastatin 20 MG (ZOCOR) TAB PO SCH (20:17)
[2021-08-10] MEDS: ACETAMINOPHEN 325 MG TABLET PO PRN (23:41)
[2021-08-11] MEDS: LOPERAMIDE 2 MG (IMODIUM) TABLET PO PRN ×2 (02:19→06:41)
[2021-08-11] MEDS: guaiFENesin/DM (ROBITUSSIN DM) 10 ML UDC PO PRN ×3 (02:19→21:53)
--- NOTE | 2021-08-11 06:04 | PM&R Progress Note ---
Subjective HPI/CC On Admission Date Seen by Provider: Aug 11, 2021 Time Seen by Provider: 09:30 Subjective/Events-last exam 08/11/2021: Patient doing really well Ambulating around well No pain is reported Finished up Rocephin 08/10/2021: Patient dramatically improved Cough is an issue which is chronic and we have pursued every avenue regarding this Robitussin cough syrup ordered No pain is reported Rocephin continues 08/09/2021: Patient dramatically improved Very appreciative of the care she has received here Daughter and at the bedside No pain is reported Bowel regimen maintained which includes Colestid twice daily Still on IV antibiotics Giving 1 dose of IV iron 08/08/2021: Patient dramatically improved with delirium Now her bipolar seems to be very much in the focus Very felipe and demanding and unhappy received some reviewed texts typical for her bipolar flares Daughter who is a surgeon from [place] is at the bedside along with her son We will continue to be supportive and provide reassurance Fever noted but expected Maintain on Rocephin We will check labs in the morning Frustrated with edema of legs so I did order Lasix 40 mg IV x1 consulted Dr. Galan We will call 2 physicians she missed office visits with to explain why she missed her appointments We will restart Colestid for colitis even though she is not refilled in 4 months it appears she had some stockpiled Review of Systems General: Fatigue, Malaise Focused Exam Lactate Level 08/11/21 19:55: Lactic Acid Level 1.45 Objective Exam Vital Signs Vital Signs Date Time Temp Pulse Resp B/P (MAP) Pulse Ox O2 Delivery O2 Flow Rate FiO2 08/11/21 22:30 38.0 08/11/21 21:40 Room Air 08/11/21 21:02 151/65 (93) 08/11/21 19:11 87 20 99 Capillary Refill : General Appearance: No Apparent Distress, WD/WN, Chronically ill, Other (Subtle confusion) HEENT: PERRL/EOMI, Normal ENT Inspection, Pharynx Normal Neck: Full Range of Motion, Normal Inspection, Non Tender, Supple, Carotid Bruit Respiratory: Chest Non Tender, Lungs Clear, Normal Breath Sounds, No Accessory Muscle Use, No Respiratory Distress Cardiovascular: Regular Rate, Rhythm, No Edema, No Gallop, No JVD, No Murmur, Normal Peripheral Pulses Gastrointestinal: Normal Bowel Sounds, No Organomegaly, No Pulsatile Mass, Non Tender, Soft Rectal: Deferred Back: Normal Inspection, No CVA Tenderness, No Vertebral Tenderness Extremity: Normal Capillary Refill, Normal Inspection, Normal Range of Motion, Non Tender, No Calf Tenderness, No Pedal Edema Neurologic/Psychiatric: Alert, No Motor/Sensory Deficits, Normal Mood/Affect, 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 FIM Transfers Therapy Code Descriptions/Definitions Functional [place] Measure: 0=Not Assessed/NA 4=Minimal Assistance 1=Total Assistance 5=Supervision or Setup 2=Maximal Assistance 6=Modified [place] 3=Moderate Assistance 7=Complete IndependenceSCALE: Activities may be completed with or without assistive devices. 7-Kgiizzxfed-skfdjab completes the activity by him/herself with no assistance from a helper. 5-Set-up or Clean-up Assistance-helper sets up or cleans up; patient completes activity. [place] assists only prior to or following the activity. 4-Supervision or Touching Assistance-helper provides verbal cues and/or touching/steadying and/or contact guard assistance as patient completes activity. Assistance may be provided throughout the activity or intermittently. 3-Partial/Moderate Assistance-helper does LESS THAN HALF the effort. [place] lifts, holds or supports trunk or limbs, but provides less than half the effort. 2-Substantial/Maximal Assistance-helper does MORE THAN HALF the effort. [place] lifts or holds trunk or limbs and provides more than half the effort. 3-Cijhkivrn-oeqgtj does ALL the effort. Patient does none of the effort to complete the activity. Or, the assistance of 2 or more helpers is required for the patient to complete the activity. If activity was not attempted, code reason: 7-Patient Refused. 9-Not Applicable-not attempted and the patient did not perform the activity before the current illness, exacerbation or injury. 10-Not Attempted due to Environmental Limitations-(lack of equipment, weather restraints, etc.). 88-Not Attempted due to Medical Conditions or Safety Concerns. Roll Left to Right (QC): 6 Sit to Lying (QC): 6 Sit to Stand (QC): 6 Chair/Xuu-et-Evltp Xfer(QC): 4 Car Transfer (QC): 4 Gait Training Does the Patient Walk?: Yes Distance: 450 feet Walk 10 feet (QC): 6 Walk 50 ft with 2 Turns(QC): 4 Walk 150 ft (QC): 4 Walking 10ft/uneven surface-QC: 4 Gait Assistive Device: FWW Wheelchair Training Does the Pt Use a Wheelchair?: No Wheel 50 ft with 2 turns (QC): 3 Wheel 150 ft (QC): 88 Type of Wheelchair: N/A Stair Training #of Steps: 12 1 Step (curb) (QC): 4 4 Steps (QC): 4 12 Steps (QC): 4 Stairs: Pattern: Reciprocal Balance Picking up an Object (QC): 4 ADL-Treatment Eating (QC): 4 Oral Hygiene (QC): 5 (set up) Shower/Bathe Self (QC): 1 (pt required assist 2x due to decreased standing balance to wash bottom) Upper Body Dressing (QC): 3 (Surinder) Lower Body Dressing (QC): 2 (ModA) On/Off Footwear (QC): 4 (SBA) Toileting Hygiene (QC): 2 (ModA) Toilet Transfer (QC): 4 (CGA) Assessment/Plan Assessment and Plan Assess & Plan/Chief Complaint Assessment: Sepsis Severe delirium now resolving Sinus tachycardia UTI/pyelonephritis with gram-negative bacteremia narrowed antibiotics to Rocephin now Volume depletion requiring volume resuscitation now causing edema with third spacing so initiated Lasix 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 Galan Hypertension malignant type Hyperlipidemia Chronic cough Bipolar disorder with current flare Autoimmune connective tissue disease managed at Plan: Supportive care Consult cardiology Antibiotics DVT prophylaxis Aggressive PT and OT Speech therapy for cognitive treatment DC catheter Evaluate meds 08/08/2021: IV Lasix Supportive care for bipolar flare Continue Rocephin Monitor closely 08/09/2021: Supportive care Continue Rocephin 08/10/2021: Supportive care Rocephin Robitussin 08/11/2021: Supportive care Monitor for fever (1) Delirium Status: Acute (2) Sepsis (3) Urinary tract infection Status: Acute (4) HTN (hypertension) (5) Mixed hyperlipidemia (6) Chronic kidney disease, stage 3 (7) Primary hypertension (8) Macrocytic anemia (9) Coronary artery disease without angina pectoris (10) Bipolar disorder Status: Chronic (11) Encephalopathy acute (12) Sinus tachycardia SUZE COOPER DO Aug 11, 2021 06:04
[2021-08-11] MEDS: CATHETER FLUSH 10 ML SYR IVP SCH ×3 (06:09→21:54)
[2021-08-11] MEDS: KCL 20 MEQ TAB (K-DUR) PO SCH (06:09)
[2021-08-11 06:13] LABS: BASOPHILS % (AUTO) 0 % (0-10); EOSINOPHILS # (AUTO) 0.2 10^3/uL (0.0-0.3); EOSINOPHILS % (AUTO) 3 % (0-10); HEMATOCRIT 22 % (35-52); HEMOGLOBIN 7.1 g/dL (11.5-16.0); LYMPHOCYTES # (AUTO) 1.4 10^3/uL (1.0-4.0); LYMPHOCYTES % (AUTO) 19 % (12-44); MEAN CORPUSCULAR HEMOGLOBIN 31 pg (25-34); MEAN CORPUSCULAR HGB CONC 32 g/dL (32-36); MEAN CORPUSCULAR VOLUME 97 fL (80-99); MEAN PLATELET VOLUME 9.1 fL (9.0-12.2); MONOCYTES # (AUTO) 0.8 10^3/uL (0.0-1.0); MONOCYTES % (AUTO) 10 % (0-12); NEUTROPHILS # (AUTO) 5.2 10^3/uL (1.8-7.8); NEUTROPHILS % (AUTO) 67 % (42-75); PLATELET COUNT 304 10^3/uL (130-400); WHITE BLOOD COUNT 7.8 10^3/uL (4.3-11.0)
[2021-08-11 06:21] LABS: ALBUMIN 2.7 GM/DL (3.2-4.5); POTASSIUM 3.6 MMOL/L (3.6-5.0)
[2021-08-11 06:22] LABS: CALCIUM 8.4 MG/DL (8.5-10.1)
[2021-08-11 06:23] LABS: TOTAL PROTEIN 5.3 GM/DL (6.4-8.2)
[2021-08-11 06:25] LABS: BILIRUBIN,TOTAL 0.4 MG/DL (0.1-1.0)
[2021-08-11 06:27] LABS: CREATININE SERUM 0.83 MG/DL (0.60-1.30)
[2021-08-11] MEDS: ACETAMINOPHEN 325 MG TABLET PO PRN ×2 (06:41→21:53)
[2021-08-11 07:30] VITALS: BP 143/73
--- NOTE | 2021-08-11 07:52 | Occupational Ther Daily Note ---
OT Current Status-Daily Note Subjective Pt supine in bed and agreed to OT tx. Mental Status/Objective Patient Orientation: Person, Place, Time, Situation ADL-Treatment Therapy Code Descriptions/Definitions Functional [place] Measure: 0=Not Assessed/NA 4=Minimal Assistance 1=Total Assistance 5=Supervision or Setup 2=Maximal Assistance 6=Modified [place] 3=Moderate Assistance 7=Complete IndependenceSCALE: Activities may be completed with or without assistive devices. 2-Aeiczsylbl-bxbojyw completes the activity by him/herself with no assistance from a helper. 5-Set-up or Clean-up Assistance-helper sets up or cleans up; patient completes activity. [place] assists only prior to or following the activity. 4-Supervision or Touching Assistance-helper provides verbal cues and/or touching/steadying and/or contact guard assistance as patient completes activity. Assistance may be provided throughout the activity or intermittently. 3-Partial/Moderate Assistance-helper does LESS THAN HALF the effort. [place] lifts, holds or supports trunk or limbs, but provides less than half the effort. 2-Substantial/Maximal Assistance-helper does MORE THAN HALF the effort. [place] lifts or holds trunk or limbs and provides more than half the effort. 5-Ojseyqokg-rtckvy does ALL the effort. Patient does none of the effort to complete the activity. Or, the assistance of 2 or more helpers is required for the patient to complete the activity. If activity was not attempted, code reason: 7-Patient Refused. 9-Not Applicable-not attempted and the patient did not perform the activity before the current illness, exacerbation or injury. 10-Not Attempted due to Environmental Limitations-(lack of equipment, weather restraints, etc.). 88-Not Attempted due to Medical Conditions or Safety Concerns. Shower/Bathe Self (QC): 4 (Supervision) Upper Body Dressing (QC): 4 (supervision) Lower Body Dressing (QC): 4 (supervision) On/Off Footwear: 6 (Independent) Toileting Hygiene (QC): 4 (Supervision) Toilet Transfer (QC): 3 (SBA) Other Treatment Pt began tx supine in bed and transferred to EOB to ambulating with FWW at SBA. Pt ambulated to closet to retrieve clothes for shower. Pt then ambulated to toilet at SBA and performed toilet hygiene at supervision. Pt ambulated to sink to perform hand washing. Pt requests to shower alone, CHUN explained to pt safety concerns when transferring and showering alone. Pt consistently requested to shower with door shut and no one in there. CHUN and pt agreed to let pt transfer to shower and sit with CHUN present then CHUN would step out to let pt shower privately. Pt agrees to let CHUN know when pt is about to stand/transfer to prevent a fall. Pt performed shower at supervision. During transfer to chair from shower bench, CHUN present to ensure safety measures were taken to decrease fall risk. CHUN then stepped out to give pt privacy during dressing. Pt donned UB and LB dressing supervision to ensure safety measures were taken to decrease fall risk. Upon finishing pt ambulated to EOB with FWW at SBA to don socks Independently. Pt then requested to do laundry and ambulated to laundry room on IRF floor. Pt completed laundry task with SBA and then ambulated back to room. At end of tx, pt in chair with call light in reach and all needs met. Education OT Patient Education: Safety issues, Transfer techniques Teaching Recipient: Patient Teaching Methods: Discussion Response to Teaching: Verbalize Understanding OT Short Term Goals Short Term Goals Time Frame: Aug 18, 2021 Eatin Oral hygiene: 4 Toileting hygiene: 3 Shower/bathe self: 3 Upper body dressin Lower body dressin Putting on/taking off footwear: 3 OT Custodial Goals Director Business Development Goals Time Frame: September 02, 2021 Eating (QC): 6 Oral Hygiene (QC): 6 Toileting Hygiene (QC): 6 Shower/Bathe Self (QC): 5 Upper Body Dressing (QC): 5 Lower Body Dressing (QC): 5 On/Off Footwear (QC): 5 1=Demonstrate adherence to instructed precautions during ADL tasks. 2=Patient will verbalize/demonstrate understanding of assistive devices/modifications for ADL. 3=Patient will improve strength/tolerance for activity to enable patient to perform ADL's. OT Education/Plan Problem List/Assessment Assessment: Decreased Activ Tolerance, Decreased Safety Aware, Decreased UE Strength, Impaired Cognition, Impaired Coordination, Impaired Funct Balance, Impaired I ADL's, Impaired Self-Care Skills Discharge Recommendations Plan/Recommendations: Continue POC Treatment Plan/Plan of Care Patient would benefit from OT for education, treatment and training to promote independence in ADL's, mobility, safety and/or upper extremity function for ADL's. Plan of Care: ADL Retraining, Cognitive Retraining, Functional Mobility, Group Exercise/Act as Ind, UE Funct Exercise/Act, UE Neuromus Re-Ed/Coord, W/C Management Training Treatment Duration: September 02, 2021 Frequency: At least 5 of 7 days/Wk (IRF) Estimated Hrs Per Day: 1.5 hours per day (60-90 min/day) Agreement: Yes Rehab Potential: Fair Time/GCodes Start Time: 07:15 Stop Time: 08:35 Total Time Billed (hr/min): 80 Billed Treatment Time 1 visit- ADL, 5 (80 min) Manda Bailon Aug 11, 2021 07:52
[2021-08-11] MEDS ORDERED: PATCH REMOVAL TP SCH (08:45)
[2021-08-11] MEDS: FUROSEMIDE 40 MG (LASIX) TAB PO SCH (08:53)
[2021-08-11] MEDS: amLODIPine 5 MG (NORVASC) TAB PO SCH (08:53)
[2021-08-11] MEDS: HYDROXYCHLOROQUINE 200 MG (PLAQUENIL) TAB PO SCH ×2 (08:53→17:59)
[2021-08-11] MEDS: LOSARTAN 100 MG (COZAAR) TABLET PO SCH (08:53)
[2021-08-11] MEDS: ASPIRIN E.C. 81 MG (ECOTRIN) TAB PO SCH (08:53)
[2021-08-11] MEDS: FAMOTIDINE 20 MG (PEPCID) TABLET PO SCH (08:53)
[2021-08-11] MEDS: PANTOPRAZOLE 40 MG (PROTONIX) TAB PO SCH (08:53)
[2021-08-11] MEDS: meTOprolol SUCCINATE 100 MG (TOPROL XL) TAB PO SCH (08:54)
[2021-08-11] MEDS: DICYCLOMINE 10 MG (BENTYL) CAP PO SCH ×2 (08:54→21:54)
[2021-08-11] MEDS: GABAPENTIN 600 MG (NEURONTIN) TAB PO SCH ×3 (08:54→21:53)
[2021-08-11] MEDS: cefTRIAXone 1 GM PRE-MIX 50 ML IV SCH (08:55)
[2021-08-11] MEDS: sulfaSALAzine 500 MG (AZULFIDINE) TAB PO SCH ×2 (08:55→17:59)
[2021-08-11] MEDS: ENOXAPARIN 40 MG/0.4 ML (LOVENOX) SYR SC SCH (08:56)
[2021-08-11] MEDS: polyethylene glycoL POWDER 17 GM (MIRALAX) PACK PO SCH ×2 (08:57→21:45)
[2021-08-11] MEDS: SENNOSIDES 8.6 MG (SENOKOT) TAB PO SCH ×2 (08:57→21:45)
[2021-08-11] MEDS: DOCUSATE SODIUM 100 MG (COLACE) CAP PO SCH ×2 (08:57→21:45)
[2021-08-11] MEDS ORDERED: cloNIDine 0.2 MG PATCH (CATAPRES TTS) TDSY TD SCH (09:00)
[2021-08-11] MEDS: COLESTIPOL 1 GM (COLESTID) TAB PO SCH ×2 (09:07→21:54)
[2021-08-11] MEDS ORDERED: IRON SUCROSE 200 MG/10 ML (VENOFER) VIAL IV ONE (09:15)
--- NOTE | 2021-08-11 10:55 | Progress Note ---
KEEGAN MARTINS MED STUDENT 08/11/21 1054: Progress Note Margarette believes that she no longer needs any PT or OT at this time. She feels that she is back to her baseline and that moving around has become much easier. She is ready to go home at this time. Per PT she is able to walk at a normal speed, but does struggle with unsteadiness every so often. She is also unsteady upon standing, then it resolves. Per OT she is able to shower and dress independently. KAUR TEE DO 08/12/21 0531: Supervisory-Addendum Brief Verification & Attestation Participated in pt care: history, MDM, physical Personally performed: exam, history, MDM, supervision of care Care discussed with: Medical Student Procedures: n/a Results interpretation: Verified all documentation Verification and Attestation of Medical Student E/M Service A medical student performed and documented this service in my presence. I reviewed and verified all information documented by the medical student and made modifications to such information, when appropriate. I personally performed the physical exam and medical decision making. Kaur Tee, Aug 12, 2021,05:31 KEEGAN MARTINS MED STUDENT Aug 11, 2021 10:54 KAUR TEE DO Aug 12, 2021 05:31
--- NOTE | 2021-08-11 12:02 | Physical Therapy Daily Note ---
PT Daily Note-Current Subjective Pt sitting up in bed upon arrival. Pt agrees to PT. Nurse asked TILE GRADER to check pt for Ad carl in room. Pain Location: No Pain Reported Mental Status Patient Orientation: Person, Place, Time, Situation Attachments: IV Transfers SCALE: Activities may be completed with or without assistive devices. 3-Ylvqrmdkzf-ozdzbjm completes the activity by him/herself with no assistance from a helper. 5-Set-up or Clean-up Assistance-helper sets up or cleans up; patient completes activity. [place] assists only prior to or following the activity. 4-Supervision or Touching Assistance-helper provides verbal cues and/or touching/steadying and/or contact guard assistance as patient completes activity . Assistance may be provided throughout the activity or intermittently. 3-Partial/Moderate Assistance-helper does LESS THAN HALF the effort. [place] lifts, holds or supports trunk or limbs, but provides less than half the effort. 2-Substantial/Maximal Assistance-helper does MORE THAN HALF the effort. [place] lifts or holds trunk or limbs and provides more than half the effort. 3-Xwiptlhdl-xsbgbm does ALL the effort. Patient does none of the effort to complete the activity. Or, the assistance of 2 or more helpers is required for the patient to complete the activity. If activity was not attempted, code reason: 7-Patient Refused. 9-Not Applicable-not attempted and the patient did not perform the activity before the current illness, exacerbation or injury. 10-Not Attempted due to Environmental Limitations-(lack of equipment, weather restraints, etc.). 88-Not Attempted due to Medical Conditions or Safety Concerns. Roll Left & Right (QC): 6 Sit to Lying (QC): 6 Lying to Sitting/Side of Bed(Q: 6 Sit to Stand (QC): 6 Toilet Transfer (QC): 6 Weight Bearing Full Weight Bearing Full Weight Bearing Gait Training Does the Patient Walk?: Yes Distance: 450' Walk 10 feet (QC): 6 Walk 50 ft with 2 Turns(QC): 6 Walk 150 ft (QC): 6 Gait Persons Needed: 0 Wheelchair Training Does the Pt Use a Wheelchair?: No Exercises Standing: Hip Abduction, Hamstring curls, Heel/toe raises, Marching Standing Reps: 10 Treatments TILE GRADER monitored pt for safety and activity tolerance for possible ad carl in room. Pt TF to standing and uses BR then amb. in hallway. Pt completes standing EX at // bars. Pt amb. in hallway and returns to room at end of treatment. Pt rests in recliner. All needs met. Call light in hand. Assessment Current Status: Good Progress Pt is made ad carl in room, nurse notified. PT Short Term Goals Short Term Goals Time Frame: Aug 13, 2021 Roll Left & Right: 6 Sit to lyin Lying to sitting on side of be: 6 Sit to stand: 4 (CGA) Chair/qez-gj-izkbc transfer: 4 (SBA) Toilet transfer: 4 (SBA) Car transfer: 4 (SBA) 1 step (curb): 4 PT Chcf Goals Chcf Goals PT Chcf Goals Time Frame: Aug 27, 2021 Roll Left & Right (QC): 6 Sit to Lying (QC): 6 Lying-Sitting on Side/Bed(QC): 6 Sit to Stand (QC): 6 Chair/Jgh-hq-Susae Xfer(QC): 6 Toilet Transfer (QC): 6 Car Transfer (QC): 6 Does the Patient Walk: Yes Walk 10 feet (QC): 6 Walk 50ft with 2 Turns (QC): 6 Walk 150 ft (QC): 6 Walking 10ft on Uneven Surface: 6 1 Step (curb) (QC): 4 4 Steps (QC): 4 12 Steps (QC): 88 Picking up an Object (QC): 6 Does the Pt use WC or Scooter?: No Wheel 50 feet with 2 turns (QC: 9 Type: N/A Wheel 150 feet: 9 Type: N/A PT Plan Problem List Problem List: Activity Tolerance Treatment/Plan Treatment Plan: Continue Plan of Care Treatment Plan: Bed Mobility, Education, Functional Activity Bree, Functional Strength, Group Therapy, Gait, Safety, Therapeutic Exercise, Transfers Treatment Duration: Aug 13, 2021 Frequency: 6 times per week Estimated Hrs Per Day: 1.5 hours per day Patient and/or Family Agrees t: Yes Safety Risks/Education Patient Education: Gait Training, Correct Positioning, Safety Issues Teaching Recipient: Patient Teaching Methods: Demonstration, Discussion Response to Teaching: Verbalize Understanding, Return Demonstration Time/GCodes Time In: 1000 Time Out: 1100 Total Billed Treatment Time: 60 Total Billed Treatment 1, GTx2(30 min) FA(15 min) EX(15 min) KEVEN CHARLES TILE GRADER Aug 11, 2021 12:02
--- NOTE | 2021-08-11 14:46 | Progress Note - Cardiology ---
Cardiology SOAP Progress Note Subjective: No cp or palp or syncope or shortness of breath Persistent, bilateral leg swellin No n/v/d Gen malaise and weakness present Objective: I&O/Vital Signs 08/11/21 08/11/21 08/11/21 07:30 08:33 12:35 Temp 37.1 37.0 Pulse 77 Resp 16 B/P (MAP) 143/73 (96) Pulse Ox 98 O2 Delivery Room Air Room Air Weight (Pounds): 175 Weight (Ounces): 0.0 Weight (Calculated Kilograms): 79.685466 Constitutional: AAO x 3, well-developed, well-nourished Respiratory: No accessory muscle use; other (good, bilat air entry) Cardiovascular: regular rate-rhythm, S1 and S2, systolic murmur (soft GENET at card base) Gastrointestional: No tender; soft; No guarding, No rebound; audible bowel sounds Extremities: swelling (1-2+, bilateral legedema); No clubbing, No cyanosis Neurologic/Psychiatric: oriented x 3, other (moves all limbs equally) Skin: normal color, warm/dry; No rash on exposed areas, No ulcerations on exposed areas Results/Procedures: Labs Laboratory Tests 08/11/21 06:05: White Blood Count 7.8, Red Blood Count 2.26L, Hemoglobin 7.1L, Hematocrit 22L, Mean Corpuscular Volume 97, Mean Corpuscular Hemoglobin 31, Mean Corpuscular Hemoglobin Concent 32, Red Cell Distribution Width 14.7H, Platelet Count 304, Mean Platelet Volume 9.1, Immature Granulocyte % (Auto) 2, Neutrophils (%) (Auto) 67, Lymphocytes (%) (Auto) 19, Monocytes (%) (Auto) 10, Eosinophils (%) (Auto) 3, Basophils (%) (Auto) 0, Neutrophils # (Auto) 5.2, Lymphocytes # (Auto) 1.4, Monocytes # (Auto) 0.8, Eosinophils # (Auto) 0.2, Basophils # (Auto) 0.0, Immature Granulocyte # (Auto) 0.1, Sodium Level 140, Potassium Level 3.6, Chloride Level 106, Carbon Dioxide Level 22, Anion Gap 12, Blood Urea Nitrogen 4L, Creatinine 0.83, Estimat Glomerular Filtration Rate 76, BUN/Creatinine Ratio 5, Glucose Level 96, Calcium Level 8.4L, Corrected Calcium 9.4, Total Bilirubin 0.4, Aspartate Amino Transf (AST/SGOT) 26, Alanine Aminotransferase (ALT/SGPT) 21, Alkaline Phosphatase 95, Total Protein 5.3L, Albumin 2.7L Laboratory Tests 08/11/21 06:05 A/P: Assessment: Leg swelling due to venous insufficiency and calcium-channel dwaine therapy Recent UTI with sepsis and delirium, improved Hypertension, improved H/o mild, chronic diastolic CHF, none currently CAD. Card cath of 01/10/19: patent stent (done in [place], [place] in 2006) in the ostial/prox RCA, no significant CAD, LVEF 65%, elevated LVEDP, no renal artery stenosis Labile hypertension and white-coat hypertension - intolerant to doxazosin d/t profound dizziness Echocardiogram of May 10, 2018 showed LVEF 60-65%. Mild MR and AoR. PASP 30-35 mmHg Hyperlipidemia being treated with statin therapy - followed by her PCP Bipolar disorder Arthritis of unknown type for which she takes Plaquenil and sulfasalazine, followed Dr Lazaro (her order taker at [facility]) Elevated body mass index of approx 31 IBS for which she takes Bentyl PFT's from 08-16-2013 showed spirometry WNL. Lung volumes WNL, diffusion capacity WNL Carotid u/s from 05-31-15 showed less than 40% R ICA stenosis and approx 60% L ICA stenosis for which she is following with Dr. Lechuga Chronic gen fatigue. TSH normal on 03/30/17 (3.11) H/o anemia, followed and treated by her pcp Dr Tee Multiple medication intolerances Plan: * Diuretic (for leg swelling) * Compression stockings (for leg swelling) * D/c amlodipine (may be contributing to leg swelling) * Add scheduled clonidine for bp control after stopping amlodipine * Monitor labs [facility] Aug 11, 2021 14:46
--- NOTE | 2021-08-11 15:01 | Physical Therapy Daily Note ---
PT Daily Note-Current Subjective Pt was laying in bed upon arrival. Pt agrees to PT. Mental Status Patient Orientation: Person, Place, Time, Situation Attachments: IV Transfers SCALE: Activities may be completed with or without assistive devices. 3-Qcqvjimqga-ibzyxpd completes the activity by him/herself with no assistance from a helper. 5-Set-up or Clean-up Assistance-helper sets up or cleans up; patient completes activity. [place] assists only prior to or following the activity. 4-Supervision or Touching Assistance-helper provides verbal cues and/or touching/steadying and/or contact guard assistance as patient completes activity. Assistance may be provided throughout the activity or intermittently. 3-Partial/Moderate Assistance-helper does LESS THAN HALF the effort. [place] lifts, holds or supports trunk or limbs, but provides less than half the effort. 2-Substantial/Maximal Assistance-helper does MORE THAN HALF the effort. [place] lifts or holds trunk or limbs and provides more than half the effort. 3-Pajxritpk-yowvue does ALL the effort. Patient does none of the effort to complete the activity. Or, the assistance of 2 or more helpers is required for the patient to complete the activity. If activity was not attempted, code reason: 7-Patient Refused. 9-Not Applicable-not attempted and the patient did not perform the activity before the current illness, exacerbation or injury. 10-Not Attempted due to Environmental Limitations-(lack of equipment, weather restraints, etc.). 88-Not Attempted due to Medical Conditions or Safety Concerns. Lying to Sitting/Side of Bed(Q: 6 Sit to Stand (QC): 6 Toilet Transfer (QC): 6 Weight Bearing Full Weight Bearing Full Weight Bearing Gait Training Does the Patient Walk?: Yes Distance: 450' Walk 10 feet (QC): 6 Walk 50 ft with 2 Turns(QC): 6 Walk 150 ft (QC): 6 Gait Persons Needed: 0 Gait Assistive Device: FWW Wheelchair Training Does the Pt Use a Wheelchair?: No Treatments Pt TF to standing and amb. to BR. Pt amb. in hallway for extended distance returning to room to rest in recliner. All needs met. Call light in hand. Assessment Current Status: Good Progress Pt has tendency to leave walker behind, VC for safety. PT Short Term Goals Short Term Goals Time Frame: Aug 13, 2021 Roll Left & Right: 6 Sit to lyin Lying to sitting on side of be: 6 Sit to stand: 4 (CGA) Chair/kim-mt-wijck transfer: 4 (SBA) Toilet transfer: 4 (SBA) Car transfer: 4 (SBA) 1 step (curb): 4 PT Aquatics Director Goals Fdc Goals PT Aquatics Director Goals Time Frame: Aug 27, 2021 Roll Left & Right (QC): 6 Sit to Lying (QC): 6 Lying-Sitting on Side/Bed(QC): 6 Sit to Stand (QC): 6 Chair/Qif-sr-Viagu Xfer(QC): 6 Toilet Transfer (QC): 6 Car Transfer (QC): 6 Does the Patient Walk: Yes Walk 10 feet (QC): 6 Walk 50ft with 2 Turns (QC): 6 Walk 150 ft (QC): 6 Walking 10ft on Uneven Surface: 6 1 Step (curb) (QC): 4 4 Steps (QC): 4 12 Steps (QC): 88 Picking up an Object (QC): 6 Does the Pt use WC or Scooter?: No Wheel 50 feet with 2 turns (QC: 9 Type: N/A Wheel 150 feet: 9 Type: N/A PT Plan Problem List Problem List: Activity Tolerance Treatment/Plan Treatment Plan: Continue Plan of Care Treatment Plan: Bed Mobility, Education, Functional Activity Bree, Functional Strength, Group Therapy, Gait, Safety, Therapeutic Exercise, Transfers Treatment Duration: Aug 13, 2021 Frequency: 6 times per week Estimated Hrs Per Day: 1.5 hours per day Patient and/or Family Agrees t: Yes Safety Risks/Education Patient Education: Safety Issues Teaching Recipient: Patient Teaching Methods: Discussion Response to Teaching: Verbalize Understanding Time/GCodes Time In: 1330 Time Out: 1400 Total Billed Treatment Time: 30 Total Billed Treatment 1, FA(15 min) GT(15 min) KEVEN CHARLES PTA Aug 11, 2021 15:01
[2021-08-11 19:11] VITALS: BP 172/76
--- NOTE | 2021-08-11 19:56 | Diagnostic Imaging Report ---
INDICATION: Shortness of breath COMPARISON: 08/04/21 FINDINGS: Single view of the chest demonstrates clear lungs bilaterally. The heart is normal. There is no pneumothorax. Osseous structures are normal. IMPRESSION: Negative chest Dictated by: Dictated on workstation # [id number]
[2021-08-11 20:18] LABS: BASOPHILS % (AUTO) 1 % (0-10); EOSINOPHILS # (AUTO) 0.2 10^3/uL (0.0-0.3); EOSINOPHILS % (AUTO) 3 % (0-10); HEMATOCRIT 22 % (35-52); HEMOGLOBIN 7.1 g/dL (11.5-16.0); LYMPHOCYTES # (AUTO) 1.4 10^3/uL (1.0-4.0); LYMPHOCYTES % (AUTO) 17 % (12-44); MEAN CORPUSCULAR HEMOGLOBIN 32 pg (25-34); MEAN CORPUSCULAR HGB CONC 32 g/dL (32-36); MEAN CORPUSCULAR VOLUME 99 fL (80-99); MEAN PLATELET VOLUME 9.6 fL (9.0-12.2); MONOCYTES # (AUTO) 0.8 10^3/uL (0.0-1.0); MONOCYTES % (AUTO) 10 % (0-12); NEUTROPHILS # (AUTO) 5.4 10^3/uL (1.8-7.8); NEUTROPHILS % (AUTO) 68 % (42-75); PLATELET COUNT 343 10^3/uL (130-400); WHITE BLOOD COUNT 7.9 10^3/uL (4.3-11.0)
[2021-08-11 20:23] LABS: ALBUMIN 2.7 GM/DL (3.2-4.5); BILIRUBIN,TOTAL 0.3 MG/DL (0.1-1.0); CALCIUM 8.3 MG/DL (8.5-10.1); CREATININE SERUM 0.85 MG/DL (0.60-1.30); POTASSIUM 3.8 MMOL/L (3.6-5.0); TOTAL PROTEIN 5.6 GM/DL (6.4-8.2)
[2021-08-11 20:24] LABS: BILIRUBIN,URINE NEGATIVE (NEGATIVE); CLARITY,URINE CLEAR; COLOR,URINE YELLOW; GLUCOSE, URINE (UA) NEGATIVE (NEGATIVE); KETONES,URINE NEGATIVE (NEGATIVE); LEUKOCYTE ESTERASE ,URINE NEGATIVE (NEGATIVE); NITRITE,URINE NEGATIVE (NEGATIVE); PH,URINE 5.5 (5-9); PROTEIN,URINE NEGATIVE (NEGATIVE)
[2021-08-11 20:36] LABS: BACTERIA,URINE NEGATIVE /HPF; RBC,URINE RARE /HPF; WBC,URINE RARE /HPF
[2021-08-11] MEDS ORDERED: cloNIDine 0.1 MG (CATAPRES) TAB PO SCH (21:00)
[2021-08-11 21:02] VITALS: BP 151/65
[2021-08-11] MEDS: SIMvastatin 20 MG (ZOCOR) TAB PO SCH (21:53)
[2021-08-11 22:24] LABS: BASOPHILS % (AUTO) 0 % (0-10); EOSINOPHILS # (AUTO) 0.2 10^3/uL (0.0-0.3); EOSINOPHILS % (AUTO) 2 % (0-10); HEMATOCRIT 22 % (35-52); HEMOGLOBIN 7.1 g/dL (11.5-16.0); LYMPHOCYTES # (AUTO) 1.3 10^3/uL (1.0-4.0); LYMPHOCYTES % (AUTO) 13 % (12-44); MEAN CORPUSCULAR HEMOGLOBIN 32 pg (25-34); MEAN CORPUSCULAR HGB CONC 32 g/dL (32-36); MEAN CORPUSCULAR VOLUME 98 fL (80-99); MEAN PLATELET VOLUME 9.6 fL (9.0-12.2); MONOCYTES # (AUTO) 0.8 10^3/uL (0.0-1.0); MONOCYTES % (AUTO) 8 % (0-12); NEUTROPHILS # (AUTO) 7.5 10^3/uL (1.8-7.8); NEUTROPHILS % (AUTO) 76 % (42-75); PLATELET COUNT 376 10^3/uL (130-400); WHITE BLOOD COUNT 9.9 10^3/uL (4.3-11.0)
[2021-08-11 22:27] LABS: ALBUMIN 2.9 GM/DL (3.2-4.5)
[2021-08-11 22:28] LABS: POTASSIUM 3.7 MMOL/L (3.6-5.0)
[2021-08-11 22:29] LABS: CALCIUM 8.4 MG/DL (8.5-10.1)
[2021-08-11 22:30] LABS: TOTAL PROTEIN 5.6 GM/DL (6.4-8.2)
[2021-08-11 22:32] LABS: BILIRUBIN,TOTAL 0.3 MG/DL (0.1-1.0)
[2021-08-11 22:33] LABS: CREATININE SERUM 0.84 MG/DL (0.60-1.30)
--- NOTE | 2021-08-12 06:21 | PM&R Progress Note ---
Subjective HPI/CC On Admission Date Seen by Provider: Aug 12, 2021 Time Seen by Provider: 09:30 Subjective/Events-last exam 08/12/2021: Fever occurred last night but she was asymptomatic She was under a lot of covers during the fever Due to continued issues decision was made to obtain CT scans. No evidence of any abscess BCx all NGTD 08/11/2021: Patient doing really well Ambulating around well No pain is reported Finished up Rocephin 08/10/2021: Patient dramatically improved Cough is an issue which is chronic and we have pursued every avenue regarding this Robitussin cough syrup ordered No pain is reported Rocephin continues 08/09/2021: Patient dramatically improved Very appreciative of the care she has received here Daughter and at the bedside No pain is reported Bowel regimen maintained which includes Colestid twice daily Still on IV antibiotics Giving 1 dose of IV iron 08/08/2021: Patient dramatically improved with delirium Now her bipolar seems to be very much in the focus Very felipe and demanding and unhappy received some reviewed texts typical for her bipolar flares Daughter who is a surgeon from [place] is at the bedside along with her son We will continue to be supportive and provide reassurance Fever noted but expected Maintain on Rocephin We will check labs in the morning Frustrated with edema of legs so I did order Lasix 40 mg IV x1 consulted Dr. Galan We will call 2 physicians she missed office visits with to explain why she missed her appointments We will restart Colestid for colitis even though she is not refilled in 4 months it appears she had some stockpiled Review of Systems General: Fatigue, Malaise Focused Exam Lactate Level 08/11/21 19:55: Lactic Acid Level 1.45 08/12/21 06:53: Lactic Acid Level 1.25 Objective Exam Vital Signs Vital Signs Date Time Temp Pulse Resp B/P (MAP) Pulse Ox O2 Delivery O2 Flow Rate FiO2 08/12/21 21:47 Room Air 08/12/21 21:08 37.6 08/12/21 19:49 80 18 145/70 (95) 96 Capillary Refill : General Appearance: No Apparent Distress, WD/WN, Chronically ill, Other (Subtle confusion) HEENT: PERRL/EOMI, Normal ENT Inspection, Pharynx Normal Neck: Full Range of Motion, Normal Inspection, Non Tender, Supple, Carotid Bruit Respiratory: Chest Non Tender, Lungs Clear, Normal Breath Sounds, No Accessory Muscle Use, No Respiratory Distress Cardiovascular: Regular Rate, Rhythm, No Edema, No Gallop, No JVD, No Murmur, Normal Peripheral Pulses Gastrointestinal: Normal Bowel Sounds, No Organomegaly, No Pulsatile Mass, Non Tender, Soft Rectal: Deferred Back: Normal Inspection, No CVA Tenderness, No Vertebral Tenderness Extremity: Normal Capillary Refill, Normal Inspection, Normal Range of Motion, Non Tender, No Calf Tenderness, No Pedal Edema Neurologic/Psychiatric: Alert, No Motor/Sensory Deficits, Normal Mood/Affect, hide trimmer II-XII Norm as Tested, Abnormal Gait, Depressed Affect, Disoriented, Motor Weakness (Generalized) Skin: Normal Color, Warm/Dry Lymphatic: No Adenopathy Results/Procedures Lab Laboratory Tests 08/12/21 06:53 Patient resulted labs reviewed. FIM Transfers Therapy Code Descriptions/Definitions Functional [place] Measure: 0=Not Assessed/NA 4=Minimal Assistance 1=Total Assistance 5=Supervision or Setup 2=Maximal Assistance 6=Modified [place] 3=Moderate Assistance 7=Complete IndependenceSCALE: Activities may be completed with or without assistive devices. 0-Flalikbxtt-tdenlxy completes the activity by him/herself with no assistance from a helper. 5-Set-up or Clean-up Assistance-helper sets up or cleans up; patient completes activity. [place] assists only prior to or following the activity. 4-Supervision or Touching Assistance-helper provides verbal cues and/or touching/steadying and/or contact guard assistance as patient completes activity. Assistance may be provided throughout the activity or intermittently. 3-Partial/Moderate Assistance-helper does LESS THAN HALF the effort. [place] lifts, holds or supports trunk or limbs, but provides less than half the effort. 2-Substantial/Maximal Assistance-helper does MORE THAN HALF the effort. [place] lifts or holds trunk or limbs and provides more than half the effort. 0-Xgxlyhqzd-mdatxr does ALL the effort. Patient does none of the effort to complete the activity. Or, the assistance of 2 or more helpers is required for the patient to complete the activity. If activity was not attempted, code reason: 7-Patient Refused. 9-Not Applicable-not attempted and the patient did not perform the activity before the current illness, exacerbation or injury. 10-Not Attempted due to Environmental Limitations-(lack of equipment, weather restraints, etc.). 88-Not Attempted due to Medical Conditions or Safety Concerns. Roll Left to Right (QC): 6 Sit to Lying (QC): 6 Sit to Stand (QC): 6 Chair/Nfs-as-Nwcua Xfer(QC): 4 Car Transfer (QC): 4 Gait Training Does the Patient Walk?: Yes Distance: 450' Walk 10 feet (QC): 6 Walk 50 ft with 2 Turns(QC): 6 Walk 150 ft (QC): 6 Walking 10ft/uneven surface-QC: 4 Gait Persons Needed: 0 Gait Assistive Device: FWW Wheelchair Training Does the Pt Use a Wheelchair?: No Wheel 50 ft with 2 turns (QC): 3 Wheel 150 ft (QC): 88 Type of Wheelchair: N/A Stair Training #of Steps: 12 1 Step (curb) (QC): 4 4 Steps (QC): 4 12 Steps (QC): 4 Stairs: Pattern: Reciprocal Balance Picking up an Object (QC): 4 ADL-Treatment Eating (QC): 4 Oral Hygiene (QC): 5 (set up) Shower/Bathe Self (QC): 4 (Supervision) Upper Body Dressing (QC): 4 (supervision) Lower Body Dressing (QC): 4 (supervision) On/Off Footwear (QC): 6 (Independent) Toileting Hygiene (QC): 4 (Supervision) Toilet Transfer (QC): 3 (SBA) Assessment/Plan Assessment and Plan Assess & Plan/Chief Complaint Assessment: Sepsis Severe delirium now resolving Sinus tachycardia UTI/pyelonephritis with gram-negative bacteremia narrowed antibiotics to Rocephin now Volume depletion requiring volume resuscitation now causing edema with third spacing so initiated Lasix 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 Galan Hypertension malignant type Hyperlipidemia Chronic cough Bipolar disorder with current flare Autoimmune connective tissue disease managed at Plan: Supportive care Consult cardiology Antibiotics DVT prophylaxis Aggressive PT and OT Speech therapy for cognitive treatment DC catheter Evaluate meds 08/08/2021: IV Lasix Supportive care for bipolar flare Continue Rocephin Monitor closely 08/09/2021: Supportive care Continue Rocephin 08/10/2021: Supportive care Rocephin Robitussin 08/11/2021: Supportive care Monitor for fever 08/12/21: Monitor closely CT reviewed and updated patient (1) Delirium Status: Acute (2) Sepsis (3) Urinary tract infection Status: Acute (4) HTN (hypertension) (5) Mixed hyperlipidemia (6) Chronic kidney disease, stage 3 (7) Primary hypertension (8) Macrocytic anemia (9) Coronary artery disease without angina pectoris (10) Bipolar disorder Status: Chronic (11) Encephalopathy acute (12) Sinus tachycardia SUZE COOPER DO Aug 12, 2021 06:21
[2021-08-12] MEDS: KCL 20 MEQ TAB (K-DUR) PO SCH (06:33)
[2021-08-12] MEDS: CATHETER FLUSH 10 ML SYR IVP SCH ×3 (06:33→21:12)
[2021-08-12 06:56] LABS: BASOPHILS % (AUTO) 0 % (0-10); EOSINOPHILS # (AUTO) 0.2 10^3/uL (0.0-0.3); EOSINOPHILS % (AUTO) 2 % (0-10); HEMATOCRIT 23 % (35-52); HEMOGLOBIN 7.3 g/dL (11.5-16.0); LYMPHOCYTES # (AUTO) 1.3 10^3/uL (1.0-4.0); LYMPHOCYTES % (AUTO) 15 % (12-44); MEAN CORPUSCULAR HEMOGLOBIN 32 pg (25-34); MEAN CORPUSCULAR HGB CONC 32 g/dL (32-36); MEAN CORPUSCULAR VOLUME 99 fL (80-99); MEAN PLATELET VOLUME 9.2 fL (9.0-12.2); MONOCYTES # (AUTO) 0.9 10^3/uL (0.0-1.0); MONOCYTES % (AUTO) 10 % (0-12); NEUTROPHILS # (AUTO) 6.5 10^3/uL (1.8-7.8); NEUTROPHILS % (AUTO) 72 % (42-75); PLATELET COUNT 334 10^3/uL (130-400)
[2021-08-12 07:16] LABS: ERYTHROCYTE SEDIMENTATION RATE 72 MM/HR (0-30)
[2021-08-12 07:18] LABS: ALBUMIN 2.7 GM/DL (3.2-4.5); BILIRUBIN,TOTAL 0.3 MG/DL (0.1-1.0); CALCIUM 8.1 MG/DL (8.5-10.1); CREATININE SERUM 0.84 MG/DL (0.60-1.30); POTASSIUM 3.8 MMOL/L (3.6-5.0); TOTAL PROTEIN 5.6 GM/DL (6.4-8.2)
[2021-08-12 07:27] VITALS: BP 149/64
[2021-08-12] MEDS: sulfaSALAzine 500 MG (AZULFIDINE) TAB PO SCH ×2 (08:43→17:48)
[2021-08-12] MEDS: ENOXAPARIN 40 MG/0.4 ML (LOVENOX) SYR SC SCH (08:43)
[2021-08-12] MEDS: FAMOTIDINE 20 MG (PEPCID) TABLET PO SCH (08:43)
[2021-08-12] MEDS: LOSARTAN 100 MG (COZAAR) TABLET PO SCH (08:43)
[2021-08-12] MEDS: PANTOPRAZOLE 40 MG (PROTONIX) TAB PO SCH (08:43)
[2021-08-12] MEDS: FUROSEMIDE 40 MG (LASIX) TAB PO SCH (08:43)
[2021-08-12] MEDS: guaiFENesin/DM (ROBITUSSIN DM) 10 ML UDC PO PRN ×2 (08:43→18:46)
[2021-08-12] MEDS: polyethylene glycoL POWDER 17 GM (MIRALAX) PACK PO SCH ×2 (08:44→21:12)
[2021-08-12] MEDS: GABAPENTIN 600 MG (NEURONTIN) TAB PO SCH ×3 (08:44→21:09)
[2021-08-12] MEDS: ASPIRIN E.C. 81 MG (ECOTRIN) TAB PO SCH (08:44)
[2021-08-12] MEDS: DICYCLOMINE 10 MG (BENTYL) CAP PO SCH ×2 (08:44→21:09)
[2021-08-12] MEDS: meTOprolol SUCCINATE 100 MG (TOPROL XL) TAB PO SCH (08:44)
[2021-08-12] MEDS: COLESTIPOL 1 GM (COLESTID) TAB PO SCH ×2 (08:45→21:09)
[2021-08-12] MEDS: DOCUSATE SODIUM 100 MG (COLACE) CAP PO SCH ×2 (08:45→21:12)
[2021-08-12] MEDS: SENNOSIDES 8.6 MG (SENOKOT) TAB PO SCH ×2 (08:46→21:12)
[2021-08-12] MEDS: HYDROXYCHLOROQUINE 200 MG (PLAQUENIL) TAB PO SCH ×2 (08:46→17:48)
[2021-08-12] MEDS ORDERED: IOHEXOL 350 MG/ML 100 ML (OMNIPAQUE 350) VIAL IV ONE (09:00)
[2021-08-12] MEDS ORDERED: NS 100 ML (IVPB) BAG IV ONE (09:00)
[2021-08-12] MEDS ORDERED: CATHETER FLUSH 10 ML SYR IV PRN (09:00)
[2021-08-12] MEDS ORDERED: HOLD METFORMIN - RECEIVED CONTRAST 20 ML VIAL IV SCH (09:00)
--- NOTE | 2021-08-12 09:46 | Diagnostic Imaging Report ---
EXAMINATION: CT chest, abdomen and pelvis with intravenous contrast. TECHNIQUE: Multiple contiguous axial images were obtained through the chest, abdomen and pelvis after the uneventful administration of intravenous contrast. All CT scans use one or more of the following dose optimizing techniques: automated exposure control, MA and/or KvP adjustment based on patient size and exam type or iterative reconstruction. HISTORY: Sepsis COMPARISON: None available. FINDINGS: Thyroid: The visualized thyroid gland is normal. Mediastinum: Heart size is normal without significant pericardial effusion. Calcifications of the aorta and coronary vessels. Thoracic aorta is normal in caliber. No suspicious lymphadenopathy. Lungs and airways: The lungs are clear without consolidation, pleural effusion, or pneumothorax. The airways are normal. Solid organs: The liver is normal without focal lesion. The gallbladder is surgically absent. There is no biliary ductal dilation. Pancreas is normal. Spleen is normal. Adrenal glands are normal. The kidneys are normal without hydronephrosis. Bowel: The stomach and small bowel are normal without obstruction. The colon and appendix are normal. Peritoneum: There is no intraperitoneal free fluid or free air. There are a few prominent retroperitoneal lymph nodes which are not pathologically enlarged. Vasculature: Calcification of the aorta without aneurysm. Musculoskeletal: Degenerative changes of the spine without suspicious osseous lesion or compression fracture. Pelvis: The uterus and adnexa are normal. The urinary bladder is normal. IMPRESSION: 1. No acute abnormality within the chest, abdomen, or pelvis. Dictated by: Dictated on workstation # [id number]
--- NOTE | 2021-08-12 11:57 | Physical Therapy Daily Note ---
PT Daily Note-Current Subjective Pt laying supine in bed upon arrival. Pt agrees to PT. MORTGAGE CLERK advised that while pt is ad carl in room that staff needs to be with pt while pt is showering for safety. Mental Status Patient Orientation: Person, Place, Time, Situation Attachments: IV Transfers SCALE: Activities may be completed with or without assistive devices. 9-Kjjlqjyqut-fvhvrmh completes the activity by him/herself with no assistance from a helper. 5-Set-up or Clean-up Assistance-helper sets up or cleans up; patient completes activity. [place] assists only prior to or following the activity. 4-Supervision or Touching Assistance-helper provides verbal cues and/or touching/steadying and/or contact guard assistance as patient completes activity. Assistance may be provided throughout the activity or intermittently. 3-Partial/Moderate Assistance-helper does LESS THAN HALF the effort. [place] lifts, holds or supports trunk or limbs, but provides less than half the effort. 2-Substantial/Maximal Assistance-helper does MORE THAN HALF the effort. [place] lifts or holds trunk or limbs and provides more than half the effort. 4-Gnmnsbgkg-sswkqw does ALL the effort. Patient does none of the effort to complete the activity. Or, the assistance of 2 or more helpers is required for the patient to complete the activity. If activity was not attempted, code reason: 7-Patient Refused. 9-Not Applicable-not attempted and the patient did not perform the activity before the current illness, exacerbation or injury. 10-Not Attempted due to Environmental Limitations-(lack of equipment, weather restraints, etc.). 88-Not Attempted due to Medical Conditions or Safety Concerns. Lying to Sitting/Side of Bed(Q: 6 Sit to Stand (QC): 6 Toilet Transfer (QC): 6 Weight Bearing Full Weight Bearing Full Weight Bearing Gait Training Does the Patient Walk?: Yes Distance: 100', 150' x2 Walk 10 feet (QC): 6 Walk 50 ft with 2 Turns(QC): 6 Walk 150 ft (QC): 6 Gait Persons Needed: 0 Gait Assistive Device: FWW Wheelchair Training Does the Pt Use a Wheelchair?: No Exercises Standing: Hip Abduction, Hamstring curls, Heel/toe raises, 3 way Ex=Flex, Abd, Ext, Marching Standing Reps: 10 Treatments OT/PT cotreat due to skills needed that an veterans rehabilitation counselor doesn't possess. PT worked on feet placement during standing activity and use of FWW during ambulation. OT worked on UE strengthening and placement during activity during reaching out of COG. Pt participated in dynamic standing balance activity. TF to standing and uses BR then amb. in hallway. Pt completes standing EX at // bars. Pt completes balloon toss and cone activities in kitchen area. PT departs at this time while pt continues to work with OT. Assessment Current Status: Good Progress Pt has improved with strength, balance & independence of tasks although not always socially aware of safety. PT Short Term Goals Short Term Goals Time Frame: Aug 13, 2021 Roll Left & Right: 6 Sit to lyin Lying to sitting on side of be: 6 Sit to stand: 4 (CGA) Chair/abf-ri-pzzbn transfer: 4 (SBA) Toilet transfer: 4 (SBA) Car transfer: 4 (SBA) 1 step (curb): 4 PT Twister Hand Goals Twister Hand Goals PT Twister Hand Goals Time Frame: Aug 27, 2021 Roll Left & Right (QC): 6 Sit to Lying (QC): 6 Lying-Sitting on Side/Bed(QC): 6 Sit to Stand (QC): 6 Chair/Wst-mv-Wfjwi Xfer(QC): 6 Toilet Transfer (QC): 6 Car Transfer (QC): 6 Does the Patient Walk: Yes Walk 10 feet (QC): 6 Walk 50ft with 2 Turns (QC): 6 Walk 150 ft (QC): 6 Walking 10ft on Uneven Surface: 6 1 Step (curb) (QC): 4 4 Steps (QC): 4 12 Steps (QC): 88 Picking up an Object (QC): 6 Does the Pt use WC or Scooter?: No Wheel 50 feet with 2 turns (QC: 9 Type: N/A Wheel 150 feet: 9 Type: N/A PT Plan Problem List Problem List: Activity Tolerance Treatment/Plan Treatment Plan: Continue Plan of Care Treatment Plan: Bed Mobility, Education, Functional Activity Bree, Functional Strength, Group Therapy, Gait, Safety, Therapeutic Exercise, Transfers Treatment Duration: Aug 13, 2021 Frequency: 6 times per week Estimated Hrs Per Day: 1.5 hours per day Patient and/or Family Agrees t: Yes Safety Risks/Education Patient Education: Safety Issues Teaching Recipient: Patient Teaching Methods: Discussion Response to Teaching: Verbalize Understanding Time/GCodes Time In: 1030 Time Out: 1130 Total Billed Treatment Time: 60 Total Billed Treatment 1, GT (15m), EX (15m) & FA x2 (30m) KEVEN CHARLES MORTGAGE CLERK Aug 12, 2021 11:57
--- NOTE | 2021-08-12 12:09 | Occupational Ther Daily Note ---
OT Current Status-Daily Note Subjective Pt in therapy gym at beginning of tx. Pt agreed to OT/PT cotreat. Mental Status/Objective Patient Orientation: Person, Place, Time, Situation ADL-Treatment Therapy Code Descriptions/Definitions Functional [place] Measure: 0=Not Assessed/NA 4=Minimal Assistance 1=Total Assistance 5=Supervision or Setup 2=Maximal Assistance 6=Modified [place] 3=Moderate Assistance 7=Complete IndependenceSCALE: Activities may be completed with or without assistive devices. 8-Ujeqtnfzpi-xbzsmus completes the activity by him/herself with no assistance from a helper. 5-Set-up or Clean-up Assistance-helper sets up or cleans up; patient completes activity. [place] assists only prior to or following the activity. 4-Supervision or Touching Assistance-helper provides verbal cues and/or touching/steadying and/or contact guard assistance as patient completes activity. Assistance may be provided throughout the activity or intermittently. 3-Partial/Moderate Assistance-helper does LESS THAN HALF the effort. [place] lifts, holds or supports trunk or limbs, but provides less than half the effort. 2-Substantial/Maximal Assistance-helper does MORE THAN HALF the effort. [place] lifts or holds trunk or limbs and provides more than half the effort. 6-Kcqmkzfke-sfljcj does ALL the effort. Patient does none of the effort to complete the activity. Or, the assistance of 2 or more helpers is required for the patient to complete the activity. If activity was not attempted, code reason: 7-Patient Refused. 9-Not Applicable-not attempted and the patient did not perform the activity before the current illness, exacerbation or injury. 10-Not Attempted due to Environmental Limitations-(lack of equipment, weather restraints, etc.). 88-Not Attempted due to Medical Conditions or Safety Concerns. Other Treatment 11:00-11:30- OT/PT cotreat due to skills needed that an rehabilitator doesn't possess. PT worked on feet placement during standing activity and use of FWW during ambulation. OT worked on UE strengthening and placement during activity during reaching out of COG. Pt participated in dynamic standing balance activity. First activity involved balloon volleyball to also increase activity tolerance. Pt and CHUN hit balloon back and forth while OUT OF TOWN COLLECTION CLERK ensured safety while pt reached out of COG. Pt required 1 rest break during activity. Upon finishing, pt participated in cone activity by ambulating to kitchen area on IRF floor, and opening and closing cabinets and drawers to grab cones and hand them to CHUN in different planes. Pt participated in this activity twice and required rest break in between. Pt then ambulated back to therapy room for final rest break. 5030-0150- OT tx. Pt requested to use restroom. Pt ambulated from therapy gym to room. Pt persistently request to use restroom alone. CHUN reassured to pt that now that she is ab carl in room, she is able to use restroom alone. Pt verbalized understanding. Pt completed toileting at Independent. Upon finishing, pt ambulated to therapy gym to participate in ring throwing activity to increase dynamic standing balance and activity tolerance by throwing 8 rings 3x through. Pt then completed green theraputty activity by removing 10 beads to increase hand strength. Upon finishing, pt ambulated back to room with FWW and ended tx EOB with call light in reach and all needs met. OT Short Term Goals Short Term Goals Time Frame: Aug 18, 2021 Eatin Oral hygiene: 4 Toileting hygiene: 3 Shower/bathe self: 3 Upper body dressin Lower body dressin Putting on/taking off footwear: 3 OT Senior Care Goals Senior Care Goals Time Frame: September 02, 2021 Eating (QC): 6 Oral Hygiene (QC): 6 Toileting Hygiene (QC): 6 Shower/Bathe Self (QC): 5 Upper Body Dressing (QC): 5 Lower Body Dressing (QC): 5 On/Off Footwear (QC): 5 1=Demonstrate adherence to instructed precautions during ADL tasks. 2=Patient will verbalize/demonstrate understanding of assistive devices/modifications for ADL. 3=Patient will improve strength/tolerance for activity to enable patient to perform ADL's. OT Education/Plan Problem List/Assessment Assessment: Decreased Activ Tolerance, Decreased Safety Aware, Decreased UE Strength, Impaired Cognition, Impaired Coordination, Impaired Funct Balance, Impaired I ADL's Discharge Recommendations Plan/Recommendations: Continue POC Treatment Plan/Plan of Care Patient would benefit from OT for education, treatment and training to promote independence in ADL's, mobility, safety and/or upper extremity function for ADL's. Plan of Care: ADL Retraining, Cognitive Retraining, Functional Mobility, Group Exercise/Act as Ind, UE Funct Exercise/Act, UE Neuromus Re-Ed/Coord, W/C Management Training Treatment Duration: September 02, 2021 Frequency: At least 5 of 7 days/Wk (IRF) Estimated Hrs Per Day: 1.5 hours per day (60-90 min/day) Agreement: Yes Rehab Potential: Fair Time/GCodes Start Time: 11:00 Stop Time: 12:00 Total Time Billed (hr/min): 60 Billed Treatment Time OT/PT cotreat: 4634-1458 OT tx: 5864-4912 1 visit- 1, FA 3 (50min) ADL 1 (10min) Manda Bailon Aug 12, 2021 12:09
--- NOTE | 2021-08-12 13:59 | Progress Note - Cardiology ---
Cardiology SOAP Progress Note Subjective: Swelling as before No cp or palp or syncope Gen malaise present Objective: I&O/Vital Signs 08/12/21 08/12/21 07:27 09:00 Temp 37.2 Pulse 75 Resp 14 B/P (MAP) 149/64 (92) Pulse Ox 97 O2 Delivery Room Air Room Air Weight (Pounds): 175 Weight (Ounces): 0.0 Weight (Calculated Kilograms): 79.195491 Constitutional: AAO x 3, well-developed, well-nourished Respiratory: No accessory muscle use; other (good, bilat air entry) Cardiovascular: regular rate-rhythm, S1 and S2, systolic murmur (soft GENET at card base) Gastrointestional: No tender; soft; No guarding, No rebound; audible bowel sounds Extremities: swelling (1-2+, bilateral legedema); No clubbing, No cyanosis Neurologic/Psychiatric: oriented x 3, other (moves all limbs equally) Skin: normal color, warm/dry; No rash on exposed areas, No ulcerations on exposed areas Results/Procedures: Labs Laboratory Tests 08/11/21 19:55: Lactic Acid Level 1.45 08/11/21 20:20: Urine Color YELLOW, Urine Clarity CLEAR, Urine pH 5.5, Urine Specific Myton <=1.005, Urine Protein NEGATIVE, Urine Glucose (UA) NEGATIVE, Urine Ketones NEGATIVE, Urine Nitrite NEGATIVE, Urine Bilirubin NEGATIVE, Urine Urobilinogen 0.2, Urine Leukocyte Esterase NEGATIVE, Urine RBC (Auto) TRACE-IH, Urine RBC RARE, Urine WBC RARE, Urine Squamous Epithelial Cells NONE, Urine Crystals NONE, Urine Bacteria NEGATIVE, Urine Casts NONE, Urine Mucus NEGATIVE, Urine Culture Indicated NO 08/11/21 21:53: White Blood Count 9.9, Red Blood Count 2.24L, Hemoglobin 7.1L, Hematocrit 22L, Mean Corpuscular Volume 98, Mean Corpuscular Hemoglobin 32, Mean Corpuscular Hemoglobin Concent 32, Red Cell Distribution Width 14.8H, Platelet Count 376, Mean Platelet Volume 9.6, Immature Granulocyte % (Auto) 1, Neutrophils (%) (Auto) 76H, Lymphocytes (%) (Auto) 13, Monocytes (%) (Auto) 8, Eosinophils (%) (Auto) 2, Basophils (%) (Auto) 0, Neutrophils # (Auto) 7.5, Lymphocytes # (Auto) 1.3, Monocytes # (Auto) 0.8, Eosinophils # (Auto) 0.2, Basophils # (Auto) 0.0, Immature Granulocyte # (Auto) 0.1, Sodium Level 136, Potassium Level 3.7, Chloride Level 102, Carbon Dioxide Level 21, Anion Gap 13, Blood Urea Nitrogen 4L, Creatinine 0.84, Estimat Glomerular Filtration Rate 75, BUN/Creatinine Ratio 5, Glucose Level 100, Calcium Level 8.4L, Corrected Calcium 9.3, Total Bilirubin 0.3, Aspartate Amino Transf (AST/SGOT) 26, Alanine Aminotransferase (ALT/SGPT) 19, Alkaline Phosphatase 88, Total Protein 5.6L, Albumin 2.9L, Procalcitonin 0.07 08/12/21 06:53: Lactic Acid Level 1.25, White Blood Count 9.0, Red Blood Count 2.30L, Hemoglobin 7.3L, Hematocrit 23L, Mean Corpuscular Volume 99, Mean Corpuscular Hemoglobin 32, Mean Corpuscular Hemoglobin Concent 32, Red Cell Distribution Width 14.9H, Platelet Count 334, Mean Platelet Volume 9.2, Immature Granulocyte % (Auto) 1, Neutrophils (%) (Auto) 72, Lymphocytes (%) (Auto) 15, Monocytes (%) (Auto) 10, Eosinophils (%) (Auto) 2, Basophils (%) (Auto) 0, Neutrophils # (Auto) 6.5, Lymphocytes # (Auto) 1.3, Monocytes # (Auto) 0.9, Eosinophils # (Auto) 0.2, Basophils # (Auto) 0.0, Immature Granulocyte # (Auto) 0.1, Sodium Level 139, Potassium Level 3.8, Chloride Level 104, Carbon Dioxide Level 24, Anion Gap 11, Blood Urea Nitrogen 4L, Creatinine 0.84, Estimat Glomerular Filtration Rate 75, BUN/Creatinine Ratio 5, Glucose Level 92, Calcium Level 8.1L, Corrected Calcium 9.1, Total Bilirubin 0.3, Aspartate Amino Transf (AST/SGOT) 23, Alanine Aminotransferase (ALT/SGPT) 16, Alkaline Phosphatase 83, Total Protein 5.6L, Albumin 2.7L, Procalcitonin 0.07, Erythrocyte Sedimentation Rate 72H, C-Reactive Protein High Sensitivity 6.03H Laboratory Tests 08/11/21 06:05 08/11/21 21:53 08/12/21 06:53 A/P: Assessment: Leg swelling due to venous insufficiency and calcium-channel dwaine therapy Recent UTI with sepsis and delirium, improved Hypertension, improved H/o mild, chronic diastolic CHF, none currently CAD. Card cath of 01/10/19: patent stent (done in [place], [place] in 2006) in the ostial/prox RCA, no significant CAD, LVEF 65%, elevated LVEDP, no renal artery stenosis Labile hypertension and white-coat hypertension - intolerant to doxazosin d/t profound dizziness Echocardiogram of May 10, 2018 showed LVEF 60-65%. Mild MR and AoR. PASP 30-35 mmHg Hyperlipidemia being treated with statin therapy - followed by her PCP Bipolar disorder Arthritis of unknown type for which she takes Plaquenil and sulfasalazine, followed Dr Lazaro (her mathematical engineering technician at [facility]) Elevated body mass index of approx 31 IBS for which she takes Bentyl PFT's from 08-16-2013 showed spirometry WNL. Lung volumes WNL, diffusion capacity WNL Carotid u/s from 05-31-15 showed less than 40% R ICA stenosis and approx 60% L ICA stenosis for which she is following with Dr. Lechuga Chronic gen fatigue. TSH normal on 03/30/17 (3.11) H/o anemia, followed and treated by her pcp Dr Tee Multiple medication intolerances Plan: * Diuretic (for leg swelling) * Compression stockings (for leg swelling) * Monitor labs CHAVEZ LR MD FACP [facility] Aug 12, 2021 13:59
--- NOTE | 2021-08-12 14:08 | Occupational Ther Daily Note ---
OT Current Status-Daily Note Subjective Pt supine in bed, pt agreed to OT tx. Mental Status/Objective Patient Orientation: Person, Place, Time, Situation ADL-Treatment Therapy Code Descriptions/Definitions Functional [place] Measure: 0=Not Assessed/NA 4=Minimal Assistance 1=Total Assistance 5=Supervision or Setup 2=Maximal Assistance 6=Modified [place] 3=Moderate Assistance 7=Complete IndependenceSCALE: Activities may be completed with or without assistive devices. 5-Tekryinbox-eekxpxn completes the activity by him/herself with no assistance from a helper. 5-Set-up or Clean-up Assistance-helper sets up or cleans up; patient completes activity. [place] assists only prior to or following the activity. 4-Supervision or Touching Assistance-helper provides verbal cues and/or touching/steadying and/or contact guard assistance as patient completes activity. Assistance may be provided throughout the activity or intermittently. 3-Partial/Moderate Assistance-helper does LESS THAN HALF the effort. [place] lifts, holds or supports trunk or limbs, but provides less than half the effort. 2-Substantial/Maximal Assistance-helper does MORE THAN HALF the effort. [place] lifts or holds trunk or limbs and provides more than half the effort. 1-Ekrvshtqb-gzwnpe does ALL the effort. Patient does none of the effort to complete the activity. Or, the assistance of 2 or more helpers is required for the patient to complete the activity. If activity was not attempted, code reason: 7-Patient Refused. 9-Not Applicable-not attempted and the patient did not perform the activity before the current illness, exacerbation or injury. 10-Not Attempted due to Environmental Limitations-(lack of equipment, weather restraints, etc.). 88-Not Attempted due to Medical Conditions or Safety Concerns. Toileting Hygiene (QC): 6 (Independent with safety concerns) Toilet Transfer (QC): 6 (Independent with safety concerns) Other Treatment Pt completed yellow theraband BUE exercises to increase BUE strength and activity tolerance by completing elbow flexion/extension and shoulder horizontal/vertical abduction 10 reps each. Pt also completed green resistive sponge brick kiln worker squeezes doing 10 reps on each hand 2x through. Pt requested to use restroom, and pt ambulated to restroom with FWW and completed toileting and toilet hygiene at [facility]. Pt then ambulated back to EOB. PT/OT cotreat with PT focusing on LE strengthening and OT focusing on UE strengthening and activity tolerance. Pt ambulated to therapy gym with FWW and pt seated in chair for rest break. Pt required rest break throughout the rest of OT/PT cotreat. Pt end OT tx in therapy gym with PT present and all needs met. OT Short Term Goals Short Term Goals Time Frame: Aug 18, 2021 Eatin Oral hygiene: 4 Toileting hygiene: 3 Shower/bathe self: 3 Upper body dressin Lower body dressin Putting on/taking off footwear: 3 OT Engine Manager Goals Snf Goals Time Frame: September 02, 2021 Eating (QC): 6 Oral Hygiene (QC): 6 Toileting Hygiene (QC): 6 Shower/Bathe Self (QC): 5 Upper Body Dressing (QC): 5 Lower Body Dressing (QC): 5 On/Off Footwear (QC): 5 1=Demonstrate adherence to instructed precautions during ADL tasks. 2=Patient will verbalize/demonstrate understanding of assistive devices/modifications for ADL. 3=Patient will improve strength/tolerance for activity to enable patient to perform ADL's. OT Education/Plan Problem List/Assessment Assessment: Decreased Activ Tolerance, Decreased UE Strength, Impaired Cognition, Impaired Coordination, Impaired Funct Balance, Impaired I ADL's Discharge Recommendations Plan/Recommendations: Continue POC Treatment Plan/Plan of Care Patient would benefit from OT for education, treatment and training to promote independence in ADL's, mobility, safety and/or upper extremity function for ADL's. Plan of Care: ADL Retraining, Cognitive Retraining, Functional Mobility, Group Exercise/Act as Ind, UE Funct Exercise/Act, UE Neuromus Re-Ed/Coord, W/C Management Training Treatment Duration: September 02, 2021 Frequency: At least 5 of 7 days/Wk (IRF) Estimated Hrs Per Day: 1.5 hours per day (60-90 min/day) Agreement: Yes Rehab Potential: Fair Time/GCodes Start Time: 13:00 Stop Time: 13:40 Total Time Billed (hr/min): 40 Billed Treatment Time OT tx- 2176-8614 PT/OT cotreat- 5348-6418 1 visit- 1, EX 2 (30min), ADL (10min) Manda Bailon Aug 12, 2021 14:08
--- NOTE | 2021-08-12 14:19 | Physical Therapy Daily Note ---
PT Daily Note-Current Subjective Pt laying supine in bed upon arrival. Pt agrees to PT. Pt is no longer ad carl in room at this time. Mental Status Patient Orientation: Person, Place, Time, Situation Transfers SCALE: Activities may be completed with or without assistive devices. 6-Qlhhlbgxzm-iagjlyd completes the activity by him/herself with no assistance from a helper. 5-Set-up or Clean-up Assistance-helper sets up or cleans up; patient completes activity. [place] assists only prior to or following the activity. 4-Supervision or Touching Assistance-helper provides verbal cues and/or touching/steadying and/or contact guard assistance as patient completes activity. Assistance may be provided throughout the activity or intermittently. 3-Partial/Moderate Assistance-helper does LESS THAN HALF the effort. [place] lifts, holds or supports trunk or limbs, but provides less than half the effort. 2-Substantial/Maximal Assistance-helper does MORE THAN HALF the effort. [place] lifts or holds trunk or limbs and provides more than half the effort. 6-Osfpcggmp-mxdost does ALL the effort. Patient does none of the effort to complete the activity. Or, the assistance of 2 or more helpers is required for the patient to complete the activity. If activity was not attempted, code reason: 7-Patient Refused. 9-Not Applicable-not attempted and the patient did not perform the activity before the current illness, exacerbation or injury. 10-Not Attempted due to Environmental Limitations-(lack of equipment, weather restraints, etc.). 88-Not Attempted due to Medical Conditions or Safety Concerns. Lying to Sitting/Side of Bed(Q: 6 Sit to Stand (QC): 6 Weight Bearing Full Weight Bearing Full Weight Bearing Gait Training Does the Patient Walk?: Yes Distance: 100' x2 Walk 10 feet (QC): 6 Walk 50 ft with 2 Turns(QC): 6 Gait Persons Needed: 0 Gait Assistive Device: FWW Wheelchair Training Does the Pt Use a Wheelchair?: No Exercises Seated Therapy Exercises: Long arc quads, Hamstring Curls Seated Reps: 10 NuStep Minutes: 18 NuStep Workload: 3 Treatments Need for 2 skilled clinicians for skills that could not be performed by technical sales director. due to balance deficits as well as activity tolerance. PT focuses on dynamic standing balance while OT focuses on problem solving and UE placement. Pt TF from laying supine to EOB then to standing. Pt amb. to gym and completes seated EX. Pt completes NuStep then amb. back to room to sitting on EOB. All needs met. Call light in hand. Assessment Current Status: Good Progress Pt continues to need VC for safety as she leaves walker behind when amb. PT Short Term Goals Short Term Goals Time Frame: Aug 13, 2021 Roll Left & Right: 6 Sit to lyin Lying to sitting on side of be: 6 Sit to stand: 4 (CGA) Chair/zpf-xs-mzkcn transfer: 4 (SBA) Toilet transfer: 4 (SBA) Car transfer: 4 (SBA) 1 step (curb): 4 PT Clipping Marker Goals Clipping Marker Goals PT Half-Way Goals Time Frame: Aug 27, 2021 Roll Left & Right (QC): 6 Sit to Lying (QC): 6 Lying-Sitting on Side/Bed(QC): 6 Sit to Stand (QC): 6 Chair/Fzg-sq-Pfbui Xfer(QC): 6 Toilet Transfer (QC): 6 Car Transfer (QC): 6 Does the Patient Walk: Yes Walk 10 feet (QC): 6 Walk 50ft with 2 Turns (QC): 6 Walk 150 ft (QC): 6 Walking 10ft on Uneven Surface: 6 1 Step (curb) (QC): 4 4 Steps (QC): 4 12 Steps (QC): 88 Picking up an Object (QC): 6 Does the Pt use WC or Scooter?: No Wheel 50 feet with 2 turns (QC: 9 Type: N/A Wheel 150 feet: 9 Type: N/A PT Plan Problem List Problem List: Activity Tolerance Treatment/Plan Treatment Plan: Continue Plan of Care Treatment Plan: Bed Mobility, Education, Functional Activity Bree, Functional Strength, Group Therapy, Gait, Safety, Therapeutic Exercise, Transfers Treatment Duration: Aug 13, 2021 Frequency: 6 times per week Estimated Hrs Per Day: 1.5 hours per day Patient and/or Family Agrees t: Yes Time/GCodes Time In: 1330 Time Out: 1410 Total Billed Treatment Time: 40 Total Billed Treatment 1, EX x2 (25 m) GT (15 m) Cotreat with OT [id number] KEVEN CHARLES REFERENCE ASSISTANT Aug 12, 2021 14:19
--- NOTE | 2021-08-12 15:02 | Progress Note - Cardiology ---
Cardiology SOAP Progress Note Subjective: Up with PT States she is feeling good No c/o CP, SOB or palpitations Objective: I&O/Vital Signs 08/12/21 08/12/21 07:27 09:00 Temp 37.2 Pulse 75 Resp 14 B/P (MAP) 149/64 (92) Pulse Ox 97 O2 Delivery Room Air Room Air Weight (Pounds): 175 Weight (Ounces): 0.0 Weight (Calculated Kilograms): 79.156058 Constitutional: AAO x 3, well-developed, well-nourished Respiratory: No accessory muscle use; other (good, bilat air entry) Cardiovascular: regular rate-rhythm, S1 and S2, systolic murmur (soft GENET at card base) Gastrointestional: No tender; soft; No guarding, No rebound; audible bowel sounds Extremities: swelling (1-2+, bilateral legedema); No clubbing, No cyanosis Neurologic/Psychiatric: oriented x 3, other (moves all limbs equally) Skin: normal color, warm/dry; No rash on exposed areas, No ulcerations on exposed areas Results/Procedures: Labs Laboratory Tests 08/11/21 19:55: Lactic Acid Level 1.45 08/11/21 20:20: Urine Color YELLOW, Urine Clarity CLEAR, Urine pH 5.5, Urine Specific [place] <=1.005, Urine Protein NEGATIVE, Urine Glucose (UA) NEGATIVE, Urine Ketones NEGATIVE, Urine Nitrite NEGATIVE, Urine Bilirubin NEGATIVE, Urine Urobilinogen 0.2, Urine Leukocyte Esterase NEGATIVE, Urine RBC (Auto) TRACE-IH, Urine RBC RARE, Urine WBC RARE, Urine Squamous Epithelial Cells NONE, Urine Crystals NONE, Urine Bacteria NEGATIVE, Urine Casts NONE, Urine Mucus NEGATIVE, Urine Culture Indicated NO 08/11/21 21:53: White Blood Count 9.9, Red Blood Count 2.24L, Hemoglobin 7.1L, Hematocrit 22L, Mean Corpuscular Volume 98, Mean Corpuscular Hemoglobin 32, Mean Corpuscular Hemoglobin Concent 32, Red Cell Distribution Width 14.8H, Platelet Count 376, Mean Platelet Volume 9.6, Immature Granulocyte % (Auto) 1, Neutrophils (%) (Auto) 76H, Lymphocytes (%) (Auto) 13, Monocytes (%) (Auto) 8, Eosinophils (%) (Auto) 2, Basophils (%) (Auto) 0, Neutrophils # (Auto) 7.5, Lymphocytes # (Auto) 1.3, Monocytes # (Auto) 0.8, Eosinophils # (Auto) 0.2, Basophils # (Auto) 0.0, Immature Granulocyte # (Auto) 0.1, Sodium Level 136, Potassium Level 3.7, Chlo ride Level 102, Carbon Dioxide Level 21, Anion Gap 13, Blood Urea Nitrogen 4L, Creatinine 0.84, Estimat Glomerular Filtration Rate 75, BUN/Creatinine Ratio 5, Glucose Level 100, Calcium Level 8.4L, Corrected Calcium 9.3, Total Bilirubin 0.3, Aspartate Amino Transf (AST/SGOT) 26, Alanine Aminotransferase (ALT/SGPT) 19, Alkaline Phosphatase 88, Total Protein 5.6L, Albumin 2.9L, Procalcitonin 0.07 08/12/21 06:53: Lactic Acid Level 1.25, White Blood Count 9.0, Red Blood Count 2.30L, Hemoglobin 7.3L, Hematocrit 23L, Mean Corpuscular Volume 99, Mean Corpuscular Hemoglobin 32, Mean Corpuscular Hemoglobin Concent 32, Red Cell Distribution Width 14.9H, Platelet Count 334, Mean Platelet Volume 9.2, Immature Granulocyte % (Auto) 1, Neutrophils (%) (Auto) 72, Lymphocytes (%) (Auto) 15, Monocytes (%) (Auto) 10, E osinophils (%) (Auto) 2, Basophils (%) (Auto) 0, Neutrophils # (Auto) 6.5, Lymphocytes # (Auto) 1.3, Monocytes # (Auto) 0.9, Eosinophils # (Auto) 0.2, Basophils # (Auto) 0.0, Immature Granulocyte # (Auto) 0.1, Sodium Level 139, Potassium Level 3.8, Chloride Level 104, Carbon Dioxide Level 24, Anion Gap 11, Blood Urea Nitrogen 4L, Creatinine 0.84, Estimat Glomerular Filtration Rate 75, BUN/Creatinine Ratio 5, Glucose Level 92, Calcium Level 8.1L, Corrected Calcium 9.1, Total Bilirubin 0.3, Aspartate Amino Transf (AST/SGOT) 23, Alanine Aminotransferase (ALT/SGPT) 16, Alkaline Phosphatase 83, Total Protein 5.6L, Albumin 2.7L, Procalcitonin 0.07, Erythrocyte Sedimentation Rate 72H, C-Reactive Protein High Sensitivity 6.03H Laboratory Tests 08/11/21 06:05 08/11/21 21:53 08/12/21 06:53 A/P: Assessment: Leg swelling due to venous insufficiency and calcium-channel dwaine therapy Recent UTI with sepsis and delirium, improved Hypertension, improved H/o mild, chronic diastolic CHF, none currently CAD. Card cath of 01/10/19: patent stent (done in [place], [place] in 2006) in the ostial/prox RCA, no significant CAD, LVEF 65%, elevated LVEDP, no renal artery stenosis Labile hypertension and white-coat hypertension - intolerant to doxazosin d/t profound dizziness Echocardiogram of May 10, 2018 showed LVEF 60-65%. Mild MR and AoR. PASP 30-35 mmHg Hyperlipidemia being treated with statin therapy - followed by her PCP Bipolar disorder Arthritis of unknown type for which she takes Plaquenil and sulfasalazine, followed Dr Lazaro (her outside solar sales consultant at [facility]) Elevated body mass index of approx 31 IBS for which she takes Bentyl PFT's from 08-16-2013 showed spirometry WNL. Lung volumes WNL, diffusion capacity WNL Carotid u/s from 05-31-15 showed less than 40% R ICA stenosis and approx 60% L ICA stenosis for which she is following with Dr. Lechuga Chronic gen fatigue. TSH normal on 03/30/17 (3.11) H/o anemia, followed and treated by her pcp Dr Tee Multiple medication intolerances Plan: * Diuretic (for leg swelling) * Compression stockings (for leg swelling) * Monitor labs * Continue current regimen YAO ARREDONDO Aug 12, 2021 15:01
[2021-08-12] MEDS: ACETAMINOPHEN 325 MG TABLET PO PRN (18:46)
[2021-08-12 19:49] VITALS: BP 145/70
[2021-08-12] MEDS: SIMvastatin 20 MG (ZOCOR) TAB PO SCH (21:09)
[2021-08-13] MEDS: guaiFENesin/DM (ROBITUSSIN DM) 10 ML UDC PO PRN ×5 (01:03→21:26)
--- NOTE | 2021-08-13 06:04 | PM&R Progress Note ---
Subjective HPI/CC On Admission Date Seen by Provider: Aug 13, 2021 Time Seen by Provider: 09:30 Subjective/Events-last exam 08/13/2021: Patient doing really well Set for discharge No other concerns Loose stools will be checked for C. difficile Checked meds labs 08/12/2021: Fever occurred last night but she was asymptomatic She was under a lot of covers during the fever Due to continued issues decision was made to obtain CT scans. No evidence of any abscess BCx all NGTD 08/11/2021: Patient doing really well Ambulating around well No pain is reported Finished up Rocephin 08/10/2021: Patient dramatically improved Cough is an issue which is chronic and we have pursued every avenue regarding this Robitussin cough syrup ordered No pain is reported Rocephin continues 08/09/2021: Patient dramatically improved Very appreciative of the care she has received here Daughter and at the bedside No pain is reported Bowel regimen maintained which includes Colestid twice daily Still on IV antibiotics Giving 1 dose of IV iron 08/08/2021: Patient dramatically improved with delirium Now her bipolar seems to be very much in the focus Very felipe and demanding and unhappy received some reviewed texts typical for her bipolar flares Daughter who is a surgeon from [place] is at the bedside along with her son We will continue to be supportive and provide reassurance Fever noted but expected Maintain on Rocephin We will check labs in the morning Frustrated with edema of legs so I did order Lasix 40 mg IV x1 consulted Dr. Galan We will call 2 physicians she missed office visits with to explain why she missed her appointments We will restart Colestid for colitis even though she is not refilled in 4 months it appears she had some stockpiled Review of Systems General: Fatigue, Malaise Focused Exam Lactate Level 08/11/21 19:55: Lactic Acid Level 1.45 08/12/21 06:53: Lactic Acid Level 1.25 Objective Exam Vital Signs Vital Signs Date Time Temp Pulse Resp B/P (MAP) Pulse Ox O2 Delivery O2 Flow Rate FiO2 08/13/21 20:10 99 Room Air 08/13/21 19:55 36.8 81 18 164/73 (103) Capillary Refill : General Appearance: No Apparent Distress, WD/WN, Chronically ill, Other (Subtle confusion) HEENT: PERRL/EOMI, Normal ENT Inspection, Pharynx Normal Neck: Full Range of Motion, Normal Inspection, Non Tender, Supple, Carotid Bruit Respiratory: Chest Non Tender, Lungs Clear, Normal Breath Sounds, No Accessory Muscle Use, No Respiratory Distress Cardiovascular: Regular Rate, Rhythm, No Edema, No Gallop, No JVD, No Murmur, Normal Peripheral Pulses Gastrointestinal: Normal Bowel Sounds, No Organomegaly, No Pulsatile Mass, Non Tender, Soft Rectal: Deferred Back: Normal Inspection, No CVA Tenderness, No Vertebral Tenderness Extremity: Normal Capillary Refill, Normal Inspection, Normal Range of Motion, Non Tender, No Calf Tenderness, No Pedal Edema Neurologic/Psychiatric: Alert, No Motor/Sensory Deficits, Normal Mood/Affect, audio production manager II-XII Norm as Tested, Abnormal Gait, Depressed Affect, Disoriented, Motor Weakness (Generalized) Skin: Normal Color, Warm/Dry Lymphatic: No Adenopathy Results/Procedures Lab Patient resulted labs reviewed. FIM Transfers Therapy Code Descriptions/Definitions Functional [place] Measure: 0=Not Assessed/NA 4=Minimal Assistance 1=Total Assistance 5=Supervision or Setup 2=Maximal Assistance 6=Modified [place] 3=Moderate Assistance 7=Complete IndependenceSCALE: Activities may be completed with or without assistive devices. 8-Sildfebttl-pknvooi completes the activity by him/herself with no assistance fr om a helper. 5-Set-up or Clean-up Assistance-helper sets up or cleans up; patient completes activity. [place] assists only prior to or following the activity. 4-Supervision or Touching Assistance-helper provides verbal cues and/or touching/steadying and/or contact guard assistance as patient completes activity. Assistance may be provided throughout the activity or intermittently. 3-Partial/Moderate Assistance-helper does LESS THAN HALF the effort. [place] lifts, holds or supports trunk or limbs, but provides less than half the effort. 2-Substantial/Maximal Assistance-helper does MORE THAN HALF the effort. [place] lifts or holds trunk or limbs and provides more than half the effort. 8-Vagaoxynr-ygwebq does ALL the effort. Patient does none of the effort to complete the activity. Or, the assistance of 2 or more helpers is required for the patient to complete the activity. If activity was not attempted, code reason: 7-Patient Refused. 9-Not Applicable-not attempted and the patient did not perform the activity before the current illness, exacerbation or injury. 10-Not Attempted due to Environmental Limitations-(lack of equipment, weather restraints, etc.). 88-Not Attempted due to Medical Conditions or Safety Concerns. Roll Left to Right (QC): 6 Sit to Lying (QC): 6 Sit to Stand (QC): 6 Chair/Chy-go-Tqmdk Xfer(QC): 4 Car Transfer (QC): 4 Gait Training Does the Patient Walk?: Yes Distance: 100' x2 Walk 10 feet (QC): 6 Walk 50 ft with 2 Turns(QC): 6 Walk 150 ft (QC): 6 Walking 10ft/uneven surface-QC: 4 Gait Persons Needed: 0 Gait Assistive Device: FWW Wheelchair Training Does the Pt Use a Wheelchair?: No Wheel 50 ft with 2 turns (QC): 3 Wheel 150 ft (QC): 88 Type of Wheelchair: N/A Stair Training #of Steps: 12 1 Step (curb) (QC): 4 4 Steps (QC): 4 12 Steps (QC): 4 Stairs: Pattern: Reciprocal Balance Picking up an Object (QC): 4 ADL-Treatment Eating (QC): 4 Oral Hygiene (QC): 5 (set up) Shower/Bathe Self (QC): 4 (Supervision) Upper Body Dressing (QC): 4 (supervision) Lower Body Dressing (QC): 4 (supervision) On/Off Footwear (QC): 6 (Independent) Toileting Hygiene (QC): 6 (Independent with safety concerns) Toilet Transfer (QC): 6 (Independent with safety concerns) Assessment/Plan Assessment and Plan Assess & Plan/Chief Complaint Assessment: Sepsis Severe delirium now resolving Sinus tachycardia UTI/pyelonephritis with gram-negative bacteremia narrowed antibiotics to Rocephin now Volume depletion requiring volume resuscitation now causing edema with third spacing so initiated Lasix 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 Galan Hypertension malignant type Hyperlipidemia Chronic cough Bipolar disorder with current flare Autoimmune connective tissue disease managed at Plan: Supportive care Consult cardiology Antibiotics DVT prophylaxis Aggressive PT and OT Speech therapy for cognitive treatment DC catheter Evaluate meds 08/08/2021: IV Lasix Supportive care for bipolar flare Continue Rocephin Monitor closely 08/09/2021: Supportive care Continue Rocephin 08/10/2021: Supportive care Rocephin Robitussin 08/11/2021: Supportive care Monitor for fever 08/12/21: Monitor closely CT reviewed and updated patient 08/13/2021: Check for C. difficile Discharge (1) Delirium Status: Acute (2) Sepsis (3) Urinary tract infection Status: Acute (4) HTN (hypertension) (5) Mixed hyperlipidemia (6) Chronic kidney disease, stage 3 (7) Primary hypertension (8) Macrocytic anemia (9) Coronary artery disease without angina pectoris (10) Bipolar disorder Status: Chronic (11) Encephalopathy acute (12) Sinus tachycardia SUZE COOPER DO Aug 13, 2021 06:04
[2021-08-13] MEDS: KCL 20 MEQ TAB (K-DUR) PO SCH (06:25)
[2021-08-13] MEDS: CATHETER FLUSH 10 ML SYR IVP SCH ×3 (06:25→22:00)
--- NOTE | 2021-08-13 07:49 | Occupational Ther Daily Note ---
OT Current Status-Daily Note Subjective Pt stated that she is very tired this morning, but slept well through the night. Pt agree to OT tx. Mental Status/Objective Patient Orientation: Person, Place, Time, Situation ADL-Treatment Therapy Code Descriptions/Definitions Functional [place] Measure: 0=Not Assessed/NA 4=Minimal Assistance 1=Total Assistance 5=Supervision or Setup 2=Maximal Assistance 6=Modified [place] 3=Moderate Assistance 7=Complete IndependenceSCALE: Activities may be completed with or without assistive devices. 9-Syfhwxccmn-ixiyafy completes the activity by him/herself with no assistance from a helper. 5-Set-up or Clean-up Assistance-helper sets up or cleans up; patient completes activity. [place] assists only prior to or following the activity. 4-Supervision or Touching Assistance-helper provides verbal cues and/or touching/steadying and/or contact guard assistance as patient completes activity. Assistance may be provided throughout the activity or intermittently. 3-Partial/Moderate Assistance-helper does LESS THAN HALF the effort. [place] lifts, holds or supports trunk or limbs, but provides less than half the effort. 2-Substantial/Maximal Assistance-helper does MORE THAN HALF the effort. [place] lifts or holds trunk or limbs and provides more than half the effort. 6-Yxpklsout-qzlnkj does ALL the effort. Patient does none of the effort to complete the activity. Or, the assistance of 2 or more helpers is required for the patient to complete the activity. If activity was not attempted, code reason: 7-Patient Refused. 9-Not Applicable-not attempted and the patient did not perform the activity before the current illness, exacerbation or injury. 10-Not Attempted due to Environmental Limitations-(lack of equipment, weather restraints, etc.). 88-Not Attempted due to Medical Conditions or Safety Concerns. Eating (QC): 6 (Independent) Oral Hygiene (QC): 6 (Ind) Shower/Bathe Self (QC): 6 (Ind with safety concerns) Upper Body Dressing (QC): 6 (Ind) Lower Body Dressing (QC): 6 (Ind) On/Off Footwear: 6 (Ind) Toileting Hygiene (QC): 6 (Ind) Toilet Transfer (QC): 6 (Ind with safety concerns) Other Treatment Pt began tx supine in bed eating breakfast and agreed to shower. Pt questioned if CHUN was going to be in shower room with her. CHUN reassured that LAY only needs to enter the room when transferring or standing up from the shower to prevent a fall. Pt verbalizes understanding. Pt transfers from supine to EOB to don socks Ind to ambulating with FWW to closet to retrieve clothes for shower. P t then ambulated to toilet and upon finishing, pt completed toileting hygiene Ind. Pt transferred to shower chair and doffed clothing. Pt showered and then donned clothing at Ind with safety concerns of fall risk due to decreased dynamic standing balance. Pt then transferred from bathroom with FWW to EOB. Pt then donned socks at Ind and then requested to go for a walk. Pt then ambulated to sink in bathroom to complete oral care. Upon finishing, pt ambulated with FWW around IR[facility] lobby, LAY asked if pt wanted to go for another round and pt stated that she felt "worn out" because of the shower and would like to go back to room. Pt also asked if she was going home today, LAY stated that she would most likely not go home today, but possibly soon. Pt in recliner at end of tx with call light, and phone in reach with all needs met. OT Short Term Goals Short Term Goals Time Frame: Aug 18, 2021 Eatin Oral hygiene: 4 Toileting hygiene: 3 Shower/bathe self: 3 Upper body dressin Lower body dressin Putting on/taking off footwear: 3 OT Halfway Goals Halfway Goals Time Frame: September 02, 2021 Eating (QC): 6 Oral Hygiene (QC): 6 Toileting Hygiene (QC): 6 Shower/Bathe Self (QC): 5 Upper Body Dressing (QC): 5 Lower Body Dressing (QC): 5 On/Off Footwear (QC): 5 1=Demonstrate adherence to instructed precautions during ADL tasks. 2=Patient will verbalize/demonstrate understanding of assistive devices/modifications for ADL. 3=Patient will improve strength/tolerance for activity to enable patient to perform ADL's. OT Education/Plan Problem List/Assessment Assessment: Decreased Activ Tolerance, Decreased Safety Aware, Decreased UE Strength, Impaired Coordination, Impaired Funct Balance, Impaired I ADL's Discharge Recommendations Plan/Recommendations: Continue POC Treatment Plan/Plan of Care Patient would benefit from OT for education, treatment and training to promote independence in ADL's, mobility, safety and/or upper extremity function for ADL's. Plan of Care: ADL Retraining, Cognitive Retraining, Functional Mobility, Group Exercise/Act as Ind, UE Funct Exercise/Act, UE Neuromus Re-Ed/Coord, W/C Management Training Treatment Duration: September 02, 2021 Frequency: At least 5 of 7 days/Wk (IRF) Estimated Hrs Per Day: 1.5 hours per day (60-90 min/day) Agreement: Yes Rehab Potential: Fair Time/GCodes Start Time: 07:30 Stop Time: 09:00 Total Time Billed (hr/min): 90 Billed Treatment Time 1 visit- 1, ADL 5 (80 min), FA (10min) Manda Bailon Aug 13, 2021 07:49
[2021-08-13 08:00] VITALS: BP 147/68
[2021-08-13] MEDS: DOCUSATE SODIUM 100 MG (COLACE) CAP PO SCH ×2 (09:00→20:13)
[2021-08-13] MEDS: polyethylene glycoL POWDER 17 GM (MIRALAX) PACK PO SCH ×2 (09:00→20:13)
[2021-08-13] MEDS: SENNOSIDES 8.6 MG (SENOKOT) TAB PO SCH ×2 (09:00→20:13)
[2021-08-13] MEDS: GABAPENTIN 600 MG (NEURONTIN) TAB PO SCH ×3 (09:15→20:09)
[2021-08-13] MEDS: LOSARTAN 100 MG (COZAAR) TABLET PO SCH (09:15)
[2021-08-13] MEDS: ASPIRIN E.C. 81 MG (ECOTRIN) TAB PO SCH (09:15)
[2021-08-13] MEDS: HYDROXYCHLOROQUINE 200 MG (PLAQUENIL) TAB PO SCH ×2 (09:15→18:10)
[2021-08-13] MEDS: PANTOPRAZOLE 40 MG (PROTONIX) TAB PO SCH (09:15)
[2021-08-13] MEDS: FAMOTIDINE 20 MG (PEPCID) TABLET PO SCH (09:15)
[2021-08-13] MEDS: FUROSEMIDE 40 MG (LASIX) TAB PO SCH (09:15)
[2021-08-13] MEDS: COLESTIPOL 1 GM (COLESTID) TAB PO SCH ×2 (09:16→20:10)
[2021-08-13] MEDS: meTOprolol SUCCINATE 100 MG (TOPROL XL) TAB PO SCH (09:16)
[2021-08-13] MEDS: DICYCLOMINE 10 MG (BENTYL) CAP PO SCH ×2 (09:16→20:10)
[2021-08-13] MEDS: ENOXAPARIN 40 MG/0.4 ML (LOVENOX) SYR SC SCH (09:16)
[2021-08-13] MEDS: sulfaSALAzine 500 MG (AZULFIDINE) TAB PO SCH ×2 (09:16→18:10)
[2021-08-13] MEDS: ACETAMINOPHEN 325 MG TABLET PO PRN ×2 (09:44→20:09)
--- NOTE | 2021-08-13 13:08 | Physical Therapy Daily Note ---
PT Daily Note-Current Subjective Pt sitting in recliner upon arrival. Pt agrees to PT for QC scoring for anticipated d/c tomorrow. Pain Location: No Pain Reported Mental Status Patient Orientation: Person, Place, Time, Situation Transfers SCALE: Activities may be completed with or without assistive devices. 4-Arrdivlvcb-wfzwjit completes the activity by him/herself with no assistance from a helper. 5-Set-up or Clean-up Assistance-helper sets up or cleans up; patient completes activity. [place] assists only prior to or following the activity. 4-Supervision or Touching Assistance-helper provides verbal cues and/or touching/steadying and/or contact guard assistance as patient completes activity. Assistance may be provided throughout the activity or intermittently. 3-Partial/Moderate Assistance-helper does LESS THAN HALF the effort. [place] lifts, holds or supports trunk or limbs, but provides less than half the effort. 2-Substantial/Maximal Assistance-helper does MORE THAN HALF the effort. [place] lifts or holds trunk or limbs and provides more than half the effort. 4-Lhcukfirz-eocxjh does ALL the effort. Patient does none of the effort to complete the activity. Or, the assistance of 2 or more helpers is required for the patient to complete the activity. If activity was not attempted, code reason: 7-Patient Refused. 9-Not Applicable-not attempted and the patient did not perform the activity before the current illness, exacerbation or injury. 10-Not Attempted due to Environmental Limitations-(lack of equipment, weather restraints, etc.). 88-Not Attempted due to Medical Conditions or Safety Concerns. Roll Left & Right (QC): 6 Sit to Lying (QC): 6 Lying to Sitting/Side of Bed(Q: 6 Sit to Stand (QC): 6 Chair/Vlb-ao-Kjbze Xfer(QC): 6 Toilet Transfer (QC): 6 Car Transfer (QC): 6 Weight Bearing Full Weight Bearing Full Weight Bearing Gait Training Does the Patient Walk?: Yes Distance: 500' Walk 10 feet (QC): 6 Walk 50 ft with 2 Turns(QC): 6 Walk 150 ft (QC): 6 Walking 10ft/uneven surface-QC: 6 Gait Persons Needed: 0 Gait Assistive Device: FWW Wheelchair Training Does the Pt Use a Wheelchair?: No Stair Training Stair Training: Handrails/: 2 handrails #of Steps: 4 1 Step (curb) (QC): 5 4 Steps (QC): 5 12 Steps (QC): 7 Stairs: Pattern: Reciprocal Balance Picking up an Object (QC): 6 Treatments Pt completes QC scoring items listed above. Pt wants to focus on walking before returning to room to rest and eat lunch. RETREAD MOLD OPERATOR issues written HEP for Supine and Seated EX. All needs met, call light in hand. Assessment Current Status: Good Progress Pt given VC to take FWW when walking even to BR. PT Short Term Goals Short Term Goals Time Frame: Aug 13, 2021 Roll Left & Right: 6 Sit to lyin Lying to sitting on side of be: 6 Sit to stand: 4 (CGA) Chair/hxv-hk-raxwd transfer: 4 (SBA) Toilet transfer: 4 (SBA) Car transfer: 4 (SBA) 1 step (curb): 4 PT Baker Chef Goals Longterm Goals PT Baker Chef Goals Time Frame: Aug 27, 2021 Roll Left & Right (QC): 6 Sit to Lying (QC): 6 Lying-Sitting on Side/Bed(QC): 6 Sit to Stand (QC): 6 Chair/Dve-ih-Mjanv Xfer(QC): 6 Toilet Transfer (QC): 6 Car Transfer (QC): 6 Does the Patient Walk: Yes Walk 10 feet (QC): 6 Walk 50ft with 2 Turns (QC): 6 Walk 150 ft (QC): 6 Walking 10ft on Uneven Surface: 6 1 Step (curb) (QC): 4 4 Steps (QC): 4 12 Steps (QC): 88 Picking up an Object (QC): 6 Does the Pt use WC or Scooter?: No Wheel 50 feet with 2 turns (QC: 9 Type: N/A Wheel 150 feet: 9 Type: N/A PT Plan Problem List Problem List: Activity Tolerance Treatment/Plan Treatment Plan: Continue Plan of Care Treatment Plan: Bed Mobility, Education, Functional Activity Bree, Functional Strength, Group Therapy, Gait, Safety, Therapeutic Exercise, Transfers Treatment Duration: Aug 13, 2021 Frequency: 6 times per week Estimated Hrs Per Day: 1.5 hours per day Patient and/or Family Agrees t: Yes Safety Risks/Education Patient Education: Safety Issues Teaching Recipient: Patient Teaching Methods: Discussion Response to Teaching: Verbalize Understanding Time/GCodes Time In: 1100 Time Out: 1200 Total Billed Treatment Time: 60 Total Billed Treatment 1, GT (15m), EX (15m) & FA x2 (30m) KEVEN CHARLES RETREAD MOLD OPERATOR Aug 13, 2021 13:08
--- NOTE | 2021-08-13 14:06 | Physical Therapy Daily Note ---
PT Daily Note-Current Subjective Pt asleep in recliner upon arrival. Pt agrees to PT. Pain Location: No Pain Reported Mental Status Patient Orientation: Person, Place, Situation Transfers SCALE: Activities may be completed with or without assistive devices. 9-Rvnokcwtbv-aexkikg completes the activity by him/herself with no assistance from a helper. 5-Set-up or Clean-up Assistance-helper sets up or cleans up; patient completes activity. [place] assists only prior to or following the activity. 4-Supervision or Touching Assistance-helper provides verbal cues and/or touching/steadying and/or contact guard assistance as patient completes activity. Assistance may be provided throughout the activity or intermittently. 3-Partial/Moderate Assistance-helper does LESS THAN HALF the effort. [place] lifts, holds or supports trunk or limbs, but provides less than half the effort. 2-Substantial/Maximal Assistance-helper does MORE THAN HALF the effort. [place] lifts or holds trunk or limbs and provides more than half the effort. 9-Rtsjnctnl-rvplvf does ALL the effort. Patient does none of the effort to complete the activity. Or, the assistance of 2 or more helpers is required for the patient to complete the activity. If activity was not attempted, code reason: 7-Patient Refused. 9-Not Applicable-not attempted and the patient did not perform the activity before the current illness, exacerbation or injury. 10-Not Attempted due to Environmental Limitations-(lack of equipment, weather restraints, etc.). 88-Not Attempted due to Medical Conditions or Safety Concerns. Sit to Stand (QC): 6 Toilet Transfer (QC): 6 Weight Bearing Full Weight Bearing Full Weight Bearing Gait Training Does the Patient Walk?: Yes Distance: 250' x2 Walk 10 feet (QC): 6 Walk 50 ft with 2 Turns(QC): 6 Walk 150 ft (QC): 6 Gait Persons Needed: 0 Wheelchair Training Does the Pt Use a Wheelchair?: No Treatments TF to standing and amb. to BR. Pt amb. in hallway taking RB residential through distance. Pt asks to use NuStep for 12m at WL 6 then returns to EOB to rest with Sp present. All needs met, call light in hand. Assessment Current Status: Good Progress VC to use FWW and not leave it to side. PT Short Term Goals Short Term Goals Time Frame: Aug 13, 2021 Roll Left & Right: 6 Sit to lyin Lying to sitting on side of be: 6 Sit to stand: 4 (CGA) Chair/htf-sz-aburx transfer: 4 (SBA) Toilet transfer: 4 (SBA) Car transfer: 4 (SBA) 1 step (curb): 4 PT Senior Care Goals Conditioning Coach Goals PT Conditioning Coach Goals Time Frame: Aug 27, 2021 Roll Left & Right (QC): 6 Sit to Lying (QC): 6 Lying-Sitting on Side/Bed(QC): 6 Sit to Stand (QC): 6 Chair/Mnq-fg-Abfmg Xfer(QC): 6 Toilet Transfer (QC): 6 Car Transfer (QC): 6 Does the Patient Walk: Yes Walk 10 feet (QC): 6 Walk 50ft with 2 Turns (QC): 6 Walk 150 ft (QC): 6 Walking 10ft on Uneven Surface: 6 1 Step (curb) (QC): 4 4 Steps (QC): 4 12 Steps (QC): 88 Picking up an Object (QC): 6 Does the Pt use WC or Scooter?: No Wheel 50 feet with 2 turns (QC: 9 Type: N/A Wheel 150 feet: 9 Type: N/A PT Plan Problem List Problem List: Safety Treatment/Plan Treatment Plan: Continue Plan of Care Treatment Plan: Bed Mobility, Education, Functional Activity Bree, Functional Strength, Group Therapy, Gait, Safety, Therapeutic Exercise, Transfers Treatment Duration: Aug 13, 2021 Frequency: 6 times per week Estimated Hrs Per Day: 1.5 hours per day Patient and/or Family Agrees t: Yes Safety Risks/Education Patient Education: Safety Issues Teaching Recipient: Patient Teaching Methods: Discussion Response to Teaching: Verbalize Understanding Time/GCodes Time In: 1300 Time Out: 1345 Total Billed Treatment Time: 45 Total Billed Treatment 1, GT x2 (30m) & EX (15m) KEVEN CHARLES FLANGING ROLL OPERATOR Aug 13, 2021 14:06
[2021-08-13 19:55] VITALS: BP_SYST 143; BP_SYST 164; BP_DIAS 73; BP_DIAS 76
[2021-08-13] MEDS: SIMvastatin 20 MG (ZOCOR) TAB PO SCH (20:08)
[2021-08-14] MEDS: guaiFENesin/DM (ROBITUSSIN DM) 10 ML UDC PO PRN ×2 (01:19→07:03)
[2021-08-14] MEDS: CATHETER FLUSH 10 ML SYR IVP SCH (06:00)
[2021-08-14] MEDS ORDERED: CLON1PAT34 TD (06:22)
[2021-08-14] MEDS ORDERED: NF-COLE1GM PO (06:22)
[2021-08-14] MEDS ORDERED: ASPI-1238 PO (06:22)
--- NOTE | 2021-08-14 06:23 | Discharge Summary ---
Diagnosis/Chief Complaint Date of Admission Aug 06, 2021 at 12:45 Date of Discharge Discharge Date: Aug 14, 2021 Discharge Summary Discharge Physical Examination Allergies: Coded Allergies: celecoxib (Verified Allergy, Severe, TAKES ASPIRIN AT HOME, 10/19/18) SOA penicillin G (Verified Allergy, Mild, 10/19/18) HIVES divalproex sodium (Verified Allergy, Unknown, 10/19/18) JOINT PAIN, "GUMS BECOME LOSE AROUND TEETH" meperidine (Verified Allergy, Unknown, 10/19/18) LOSES CONTROL OF HANDS AND ARMS morphine (Verified Allergy, Unknown, 10/19/18) FLU LIKE SYMPTOMS ofloxacin (Verified Allergy, Unknown, 10/19/18) TACHYCARDIA promethazine (Verified Allergy, Unknown, 05/28/08) propoxyphene (Verified Allergy, Unknown, 10/19/18) LOSES CONTROL OF HANDS AND ARMS telavancin (Unverified Adverse Reaction, Severe, 10/19/18) SUICIDAL lamotrigine (Unverified Adverse Reaction, Intermediate, BODY JERKS, 10/19/18) SUICIDAL amitriptyline (Verified Adverse Reaction, Mild, 10/19/18) LOSES CONTROL OF HANDS AND ARMS azithromycin (Verified Adverse Reaction, Mild, 10/19/18) FLU LIKE SYMPTOMS erythromycin base (Verified Adverse Reaction, Mild, 10/19/18) NAUSEA, VOMITING promethazine HCl (Unverified Adverse Reaction, Mild, 10/19/18) HALLUCINATIONS Vitals & I&Os Vital Signs Date Time Temp Pulse Resp B/P (MAP) Pulse Ox O2 Delivery O2 Flow Rate FiO2 08/14/21 09:16 99 Room Air 08/14/21 07:56 139/60 (86) 08/14/21 07:29 37.4 89 14 Hospital Course Labs (last 24 hrs) Laboratory Tests 08/07/21 06:18: White Blood Count 9.4, Red Blood Count 2.50L, Hemoglobin 7.9L, Hematocrit 24L, Mean Corpuscular Volume 97, Mean Corpuscular Hemoglobin 32, Mean Corpuscular Hemoglobin Concent 33, Red Cell Distribution Width 14.2, Platelet Count 354, Mean Platelet Volume 9.1, Immature Granulocyte % (Auto) 4, Neutrophils (%) (Auto) 74, Lymphocytes (%) (Auto) 9L, Monocytes (%) (Auto) 10, Eosinophils (%) (Auto) 3, Basophils (%) (Auto) 0, Neutrophils # (Auto) 6.9, Lymphocytes # (Auto) 0.9L, Monocytes # (Auto) 0.9, Eosinophils # (Auto) 0.3, Basophils # (Auto) 0.0, Immature Granulocyte # (Auto) 0.3H, Sodium Level 140, Potassium Level 3.5L, Chlo ride Level 114H, Carbon Dioxide Level 15L, Anion Gap 11, Blood Urea Nitrogen 10, Creatinine 0.97, Estimat Glomerular Filtration Rate 63, BUN/Creatinine Ratio 10, Glucose Level 126H, Calcium Level 8.2L, Corrected Calcium 9.4, Total Bilirubin 0.6, Aspartate Amino Transf (AST/SGOT) 17, Alanine Aminotransferase (ALT/SGPT) 18, Alkaline Phosphatase 60, Total Protein 5.5L, Albumin 2.5L 08/09/21 05:45: White Blood Count 8.6, Red Blood Count 2.30L, Hemoglobin 7.4L, Hematocrit 22L, Mean Corpuscular Volume 97, Mean Corpuscular Hemoglobin 32, Mean Corpuscular Hemoglobin Concent 33, Red Cell Distribution Width 14.6H, Platelet Count 326, Mean Platelet Volume 9.1, Immature Granulocyte % (Auto) 2, Neutrophils (%) (Auto) 76H, Lymphocytes (%) (Auto) 10L, Monocytes (%) (Auto) 9, Eosinophils (%) (Auto) 3, Basophils (%) (Auto) 1, Neutrophils # (Auto) 6.5, Lymphocytes # (Auto) 0.9L, Monocytes # (Auto) 0.8, Eosinophils # (Auto) 0.2, Basophils # (Auto) 0.0, Immature Granulocyte # (Auto) 0.2H, Sodium Level 140, Potassium Level 3.5L, Chloride Level 110H, Carbon Dioxide Level 18L, Anion Gap 12, Blood Urea Nitrogen 3L, Creatinine 0.82, Estimat Glomerular Filtration Rate 77, BUN/Creatinine Ratio 4, Glucose Level 107H, Calcium Level 8.3L, Corrected Calcium 9.4, Total Bilirubin 0.4, Aspartate Amino Transf (AST/SGOT) 25, Alanine Aminotransferase (ALT/SGPT) 18, Alkaline Phosphatase 62, Total Protein 5.5L, Albumin 2.6L, Neutrophils % (Manual) 77, Lymphocytes % (Manual) 12, Monocytes % (Manual) 6, Eosinophils % (Manual) 4, Band Neutrophils 1, Percent Immature Platelet Fraction 1.5, Hypochromasia SLIGHT, Anisocytosis SLIGHT, Absolute Reticulocyte Count 74, Percent Reticulocyte Count 3.17H, Magnesium Level 1.7 08/11/21 06:05: White Blood Count 7.9, Red Blood Count 2.25L, Hemoglobin 7.1L, Hematocrit 22L, Mean Corpuscular Volume 99, Mean Corpuscular Hemoglobin 32, Mean Corpuscular He moglobin Concent 32, Red Cell Distribution Width 14.7H, Platelet Count 343, Mean Platelet Volume 9.6, Immature Granulocyte % (Auto) 2, Neutrophils (%) (Auto) 68, Lymphocytes (%) (Auto) 17, Monocytes (%) (Auto) 10, Eosinophils (%) (Auto) 3, Basophils (%) (Auto) 1, Neutrophils # (Auto) 5.4, Lymphocytes # (Auto) 1.4, Monocytes # (Auto) 0.8, Eosinophils # (Auto) 0.2, Basophils # (Auto) 0.0, Immature Granulocyte # (Auto) 0.1, Sodium Level 140, Potassium Level 3.8, Chloride Level 107, Carbon Dioxide Level 21, Anion Gap 12, Blood Urea Nitrogen 4L, Creatinine 0.85, Estimat Glomerular Filtration Rate 74, BUN/Creatinine Ratio 5, Glucose Level 85, Calcium Level 8.3L, Corrected Calcium 9.3, Total Bilirubin 0.3, Aspartate Amino Transf (AST/SGOT) 29, Alanine Aminotransferase (ALT/SGPT) 19, Alkaline Phosphatase 98, Total Protein 5.6L, Albumin 2.7L, Procalcitonin 0.08 08/11/21 19:55: Lactic Acid Level 1.45 08/11/21 20:20: Urine Color YELLOW, Urine Clarity CLEAR, Urine pH 5.5, Urine Specific Vill[place]va <=1.005, Urine Protein NEGATIVE, Urine Glucose (UA) NEGATIVE, Urine Ketones NEGATIVE, Urine Nitrite NEGATIVE, Urine Bilirubin NEGATIVE, Urine Urobilinogen 0.2, Urine Leukocyte Esterase NEGATIVE, Urine RBC (Auto) TRACE-IH, Urine RBC RARE, Urine WBC RARE, Urine Squamous Epithelial Cells NONE, Urine Crystals NONE, Urine Bacteria NEGATIVE, Urine Casts NONE, Urine Mucus NEGATIVE, Urine Culture Indicated NO 08/11/21 21:53: White Blood Count 9.9, Red Blood Count 2.24L, Hemoglobin 7.1L, Hematocrit 22L, Mean Corpuscular Volume 98, Mean Corpuscular Hemoglobin 32, Mean Corpuscular Hemoglobin Concent 32, Red Cell Distribution Width 14.8H, Platelet Count 376, Mean Platelet Volume 9.6, Immature Granulocyte % (Auto) 1, Neutrophils (%) (Auto) 76H, Lymphocytes (%) (Auto) 13, Monocytes (%) (Auto) 8, Eosinophils (%) (Auto) 2, Basophils (%) (Auto) 0, Neutrophils # (Auto) 7.5, Lymphocytes # (Auto) 1.3, Monocytes # (Auto) 0.8, Eosinophils # (Auto) 0.2, Basophils # (Auto) 0.0, Immature Granulocyte # (Auto) 0.1, Sodium Level 136, Potassium Level 3.7, Chloride Level 102, Carbon Dioxide Level 21, Anion Gap 13, Blood Urea Nitrogen 4L, Creatinine 0.84, Estimat Glomerular Filtration Rate 75, BUN/Creatinine Ratio 5, Glucose Level 100, Calcium Level 8.4L, Corrected Calcium 9.3, Total Bilirubin 0.3, Aspartate Amino Transf (AST/SGOT) 26, Alanine Aminotransferase (ALT/SGPT) 19, Alkaline Phosphatase 88, Total Protein 5.6L, Albumin 2.9L, Procalcitonin 0 .07 08/12/21 06:53: White Blood Count 9.0, Red Blood Count 2.30L, Hemoglobin 7.3L, Hematocrit 23L, Mean Corpuscular Volume 99, Mean Corpuscular Hemoglobin 32, Mean Corpuscular Hemoglobin Concent 32, Red Cell Distribution Width 14.9H, Platelet Count 334, Mean Platelet Volume 9.2, Immature Granulocyte % (Auto) 1, Neutrophils (%) (Auto) 72, Lymphocytes (%) (Auto) 15, Monocytes (%) (Auto) 10, Eosinophils (%) (Auto) 2, Basophils (%) (Auto) 0, Neutrophils # (Auto) 6.5, Lymphocytes # (Auto) 1.3, Monocytes # (Auto) 0.9, Eosinophils # (Auto) 0.2, Basophils # (Auto) 0.0, Immature Granulocyte # (Auto) 0.1, Sodium Level 139, Potassium Level 3.8, Chloride Level 104, Carbon Dioxide Level 24, Anion Gap 11, Blood Urea Nitrogen 4L, Creatinine 0.84, Estimat Glomerular Filtration Rate 75, BUN/Creatinine Ratio 5, Glucose Level 92, Calcium Level 8.1L, Corrected Calcium 9.1, Total Bilirubin 0.3, Aspartate Amino Transf (AST/SGOT) 23, Alanine Aminotransferase (ALT/SGPT) 16, Alkaline Phosphatase 83, Total Protein 5.6L, Albumin 2.7L, Procalcitonin 0.07, Erythrocyte Sedimentation Rate 72H, Lactic Acid Level 1.25, C-Reactive Protein High Sensitivity 6.03H Microbiology 08/13/21 C. difficile GDH Antigen & Toxins - Final, Complete 08/11/21 Blood Culture - Preliminary, Resulted No growth Pending Labs Microbiology Date/Time Source Procedure Growth Status 08/13/21 10:15 Stool C. difficile GDH Antigen & Toxins - Final Complete 08/11/21 19:55 Peripheral Rt Ac Blood Culture - Preliminary No growth Resulted 08/11/21 19:55 Peripheral Lt Ac Blood Culture - Preliminary No growth Resulted Laboratory Tests 08/07/21 06:18: White Blood Count 9.4, Red Blood Count 2.50, Hemoglobin 7.9, Hematocrit 24, Mean Corpuscular Volume 97, Mean Corpuscular Hemoglobin 32, Mean Corpuscular Hemoglobin Concent 33, Red Cell Distribution Width 14.2, Platelet Count 354, Mean Platelet Volume 9.1, Immature Granulocyte % (Auto) 4, Neutrophils (%) (Auto) 74, Lymphocytes (%) (Auto) 9, Monocytes (%) (Auto) 10, Eosinophils (%) (Auto) 3, Basophils (%) (Auto) 0, Neutrophils # (Auto) 6.9, Lymphocytes # (Auto) 0.9, Monocytes # (Auto) 0.9, Eosinophils # (Auto) 0.3, Basophils # (Auto) 0.0, Immature Granulocyte # (Auto) 0.3, Sodium Level 140, Potassium Level 3.5, Chloride Level 114, Carbon Dioxide Level 15, Anion Gap 11, Blood Urea Nitrogen 10, Creatinine 0.97, Estimat Glomerular Filtration Rate 63, BUN/Creatinine Ratio 10, Glucose Level 126, Calcium Level 8.2, Corrected Calcium 9.4, Total Bilirubin 0.6, Aspartate Amino Transf (AST/SGOT) 17, Alanine Aminotransferase (ALT/SGPT) 18, Alkaline Phosphatase 60, Total Protein 5.5, Albumin 2.5 08/09/21 05:45: White Blood Count 8.6, Red Blood Count 2.30, Hemoglobin 7.4, Hematocrit 22, Mean Corpuscular Volume 97, Mean Corpuscular Hemoglobin 32, Mean Corpuscular Hemoglobin Concent 33, Red Cell Distribution Width 14.6, Platelet Count 326, Mean Platelet Volume 9.1, Immature Granulocyte % (Auto) 2, Neutrophils (%) (Auto) 76, Lymphocytes (%) (Auto) 10, Monocytes (%) (Auto) 9, Eosinophils (%) (Auto) 3, Basophils (%) (Auto) 1, Neutrophils # (Auto) 6.5, Lymphocytes # (Auto) 0.9, Monocytes # (Auto) 0.8, Eosinophils # (Auto) 0.2, Basophils # (Auto) 0.0, Immature Granulocyte # (Auto) 0.2, Sodium Level 140, Potassium Level 3.5, Chloride Level 110, Carbon Dioxide Level 18, Anion Gap 12, Blood Urea Nitrogen 3, Creatinine 0.82, Estimat Glomerular Filtration Rate 77, BUN/Creatinine Ratio 4, Glucose Level 107, Calcium Level 8.3, Corrected Calcium 9.4, Total Bilirubin 0.4, Aspartate Amino Transf (AST/SGOT) 25, Alanine Aminotransferase (ALT/SGPT) 18, Alkaline Phosphatase 62, Total Protein 5.5, Albumin 2.6, Neutrophils % (Manual) 77, Lymphocytes % (Manual) 12, Monocytes % (Manual) 6, Eosinophils % (Manual) 4, Band Neutrophils 1, Percent Immature Platelet Fraction 1.5, Hypochromasia SLIGHT, Anisocytosis SLIGHT, Absolute Reticulocyte Count 74, Pe rcent Reticulocyte Count 3.17, Magnesium Level 1.7 08/11/21 06:05: White Blood Count 7.9, Red Blood Count 2.25, Hemoglobin 7.1, Hematocrit 22, Mean Corpuscular Volume 99, Mean Corpuscular Hemoglobin 32, Mean Corpuscular Hemoglobin Concent 32, Red Cell Distribution Width 14.7, Platelet Count 343, Mean Platelet Volume 9.6, Immature Granulocyte % (Auto) 2, Neutrophils (%) (Auto) 68, Lymphocytes (%) (Auto) 17, Monocytes (%) (Auto) 10, Eosinophils (%) (Auto) 3, Basophils (%) (Auto) 1, Neutrophils # (Auto) 5.4, Lymphocytes # (Auto) 1.4, Monocytes # (Auto) 0.8, Eosinophils # (Auto) 0.2, Basophils # (Auto) 0.0, Immature Granulocyte # (Auto) 0.1, Sodium Level 140, Potassium Level 3.8, Chloride Level 107, Carbon Dioxide Level 21, Anion Gap 12, Blood Urea Nitrogen 4, Creatinine 0.85, Estimat Glomerular Filtration Rate 74, BUN/Creatinine Ratio 5, Glucose Level 85, Calcium Level 8.3, Corrected Calcium 9.3, Total Bilirubin 0.3, Aspartate Amino Transf (AST/SGOT) 29, Alanine Aminotransferase (ALT/SGPT) 1 9, Alkaline Phosphatase 98, Total Protein 5.6, Albumin 2.7, Procalcitonin 0.08 08/11/21 19:55: Lactic Acid Level 1.45 08/11/21 20:20: Urine Color YELLOW, Urine Clarity CLEAR, Urine pH 5.5, Urine Specific [place] <=1.005, Urine Protein NEGATIVE, Urine Glucose (UA) NEGATIVE, Urine Ketones NEGATIVE, Urine Nitrite NEGATIVE, Urine Bilirubin NEGATIVE, Urine Urobilinogen 0.2, Urine Leukocyte Esterase NEGATIVE, Urine RBC (Auto) TRACE-I, Urine RBC RARE, Urine WBC RARE, Urine Squamous Epithelial Cells NONE, Urine Crystals NONE, Urine Bacteria NEGATIVE, Urine Casts NONE, Urine Mucus NEGATIVE, Urine Culture Indicated NO 08/11/21 21:53: White Blood Count 9.9, Red Blood Count 2.24, Hemoglobin 7.1, Hematocrit 22, Mean Corpuscular Volume 98, Mean Corpuscular Hemoglobin 32, Mean Corpuscular Hemoglobin Concent 32, Red Cell Distribution Width 14.8, Platelet Count 376, Mean Platelet Volume 9.6, Immature Granulocyte % (Auto) 1, Neutrophils (%) (Auto) 76, Lymphocytes (%) (Auto) 13, Monocytes (%) (Auto) 8, Eosinophils (%) (Auto) 2, Basophils (%) (Auto) 0, Neutrophils # (Auto) 7.5, Lymphocytes # (Auto) 1.3, Monocytes # (Auto) 0.8, Eosinophils # (Auto) 0.2, Basophils # (Auto) 0.0, Immature Granulocyte # (Auto) 0.1, Sodium Level 136, Potassium Level 3.7, Chloride Level 102, Carbon Dioxide Level 21, Anion Gap 13, Blood Urea Nitrogen 4, Creatinine 0.84, Estimat Glomerular Filtration Rate 75, BUN/Creatinine Ratio 5, Glucose Level 100, Calcium Level 8.4, Corrected Calcium 9.3, Total Bilirubin 0.3, Aspartate Amino Transf (AST/SGOT) 26, Alanine Aminotransferase (ALT/SGPT) 19, Alkaline Phosphatase 88, Total Protein 5.6, Albumin 2.9, Procalcitonin 0.07 08/12/21 06:53: White Blood Count 9.0, Red Blood Count 2.30, Hemoglobin 7.3, Hematocrit 23, Mean Corpuscular Volume 99, Mean Corpuscular Hemoglobin 32, Mean Corpuscular Hemoglobin Concent 32, Red Cell Distribution Width 14.9, Platelet Count 334, Mean Platelet Volume 9.2, Immature Granulocyte % (Auto) 1, Neutrophils (%) (Auto) 72, Lymphocytes (%) (Auto) 15, Monocytes (%) (Auto) 10, Eosinophils (%) (Auto) 2, Basophils (%) (Auto) 0, Neutrophils # (Auto) 6.5, Lymphocytes # (Auto) 1.3, Monocytes # (Auto) 0.9, Eosinophils # (Auto) 0.2, Basophils # (Auto) 0.0, Immature Granulocyte # (Auto) 0.1, Sodium Level 139, Potassium Level 3.8, Chloride Level 104, Carbon Dioxide Level 24, Anion Gap 11, Blood Urea Nitrogen 4, Creatinine 0.84, Estimat Glomerular Filtration Rate 75, BUN/Creatinine Ratio 5, Glucose Level 92, Calcium Level 8.1, Corrected Calcium 9.1, Total Bilirubin 0.3, Aspartate Amino Transf (AST/SGOT) 23, Alanine Aminotransferase (ALT/SGPT) 16, Alkaline Phosphatase 83, Total Protein 5.6, Albumin 2.7, Procalcitonin 0.07, Erythrocyte Sedimentation Rate 72, Lactic Acid Level 1.25, C-Reactive Protein High Sensitivity 6.03 Discharge Home Medications: Active Scripts Active Toprol Xl (Metoprolol Succinate) 100 Mg Tab.er.24h 100 Mg PO HS Losartan Potassium 100 Mg Tablet 100 Mg PO DAILY Aspirin EC (Aspirin) 81 Mg Tablet.dr 81 Mg PO DAILY Colestid (Colestipol HCl) 1 Gm Tab 1 Gm PO BID Reported Pantoprazole Sodium 40 Mg Tablet.dr 40 Mg PO DAILY Nitroglycerin 0.4 Mg Tab.subl 0.4 Mg SL UD PRN Celexa (Citalopram Hydrobromide) 40 Mg Tablet 40 Mg PO DAILY Metoprolol Succinate 200 Mg Tab.er.24h 200 Mg PO DAILY Hydroxychloroquine Sulfate 200 Mg Tablet 200 Mg PO BID Azulfidine (Sulfasalazine) 500 Mg Tablet 1,500 Mg PO BID TAKES 3 (500MG) TABLETS K-Tab ER (Potassium Chloride) 20 Meq Tablet.er 20 Meq PO DAILY Furosemide 40 Mg Tablet 40 Mg PO DAILY Dicyclomine HCl 20 Mg Tablet 20 Mg PO QID Baclofen 10 Mg Tablet 20 Mg PO TID TAKES 2 (10MG) TABLETS Simvastatin 20 Mg Tablet 20 Mg PO HS Gabapentin 600 Mg Tablet 1,200 Mg PO TID TAKES 2 (600MG) TABLETS Instructions to patient/family Please see electronic discharge instructions given to patient. Diagnosis/Problems Diagnosis/Problems (1) Delirium Status: Acute (2) Sepsis (3) Urinary tract infection Status: Acute (4) HTN (hypertension) Qualifiers: Qualified Codes: I10 - Essential (primary) hypertension (5) Mixed hyperlipidemia (6) Chronic kidney disease, stage 3 (7) Primary hypertension (8) Macrocytic anemia (9) Coronary artery disease without angina pectoris (10) Bipolar disorder Status: Chronic (11) Encephalopathy acute (12) Sinus tachycardia SUZE COOPER DO Aug 14, 2021 06:23
[2021-08-14] MEDS: KCL 20 MEQ TAB (K-DUR) PO SCH (06:56)
[2021-08-14 07:29] VITALS: BP 170/71
[2021-08-14 07:56] VITALS: BP 139/60
[2021-08-14] MEDS: DOCUSATE SODIUM 100 MG (COLACE) CAP PO SCH (08:10)
[2021-08-14] MEDS: polyethylene glycoL POWDER 17 GM (MIRALAX) PACK PO SCH (08:11)
[2021-08-14] MEDS: SENNOSIDES 8.6 MG (SENOKOT) TAB PO SCH (08:11)
[2021-08-14] MEDS: DICYCLOMINE 10 MG (BENTYL) CAP PO SCH (08:23)
[2021-08-14] MEDS: ENOXAPARIN 40 MG/0.4 ML (LOVENOX) SYR SC SCH (08:23)
[2021-08-14] MEDS: GABAPENTIN 600 MG (NEURONTIN) TAB PO SCH (08:24)
[2021-08-14] MEDS: PANTOPRAZOLE 40 MG (PROTONIX) TAB PO SCH (08:24)
[2021-08-14] MEDS: FUROSEMIDE 40 MG (LASIX) TAB PO SCH (08:24)
[2021-08-14] MEDS: LOSARTAN 100 MG (COZAAR) TABLET PO SCH (08:24)
[2021-08-14] MEDS: ASPIRIN E.C. 81 MG (ECOTRIN) TAB PO SCH (08:24)
[2021-08-14] MEDS: COLESTIPOL 1 GM (COLESTID) TAB PO SCH (08:24)
[2021-08-14] MEDS: HYDROXYCHLOROQUINE 200 MG (PLAQUENIL) TAB PO SCH (08:24)
[2021-08-14] MEDS: meTOprolol SUCCINATE 100 MG (TOPROL XL) TAB PO SCH (08:24)
[2021-08-14] MEDS: FAMOTIDINE 20 MG (PEPCID) TABLET PO SCH (08:24)
[2021-08-14] MEDS: sulfaSALAzine 500 MG (AZULFIDINE) TAB PO SCH (08:41)
[2021-08-14] MEDS ORDERED: METO100T6 PO (08:57)
[2021-08-14] MEDS ORDERED: LOSA100T57 PO (08:57)
--- NOTE | 2021-08-14 09:10 | Therapy Team Discharge Summary ---
Therapy Discharge Summary Discharge Recommendations Date of Discharge Physical Therapy Patient came to rehab with Sepsis, Encephalopathy. Upon evaluation patient performed rolling and supine <-> sit with setup, sit <-> stand min assist, transfers and car transfer CGA, ambulated 150' with a rolling walker with CGA ( including 50' with at least 2 turns of 90 degrees and 10' over an uneven surface), propelled a manual WC 50' with min assist, and picked up an object from the floor with CGA. Patient has been performing bed mobility and transfer training, balance and endurance training, functional strengthening, stair training, gait training, and education. Patient has made good progress and has met all of her shelter goals. Now, patient performs rolling and supine <-> sit with independence, sit <-> stand and transfers with independence, car transfer independent, ambulates 500' with a rolling walker with independence (including 50' with at least 2 turns of 90 degrees and 10' over an uneven surface), can go up and down 4 steps using 2 handrails with SBA, and can order picker/assembler an object from the floor with independence. Patient is being discharged from this facility today and will be discharged from PT at this time. Roll Left to Right (QC): 6 Sit to Lying (QC): 6 Lying to Sitting/Side of Bed(Q: 6 Sit to Stand (QC): 6 Chair/Zml-ke-Zjtwq Xfer(QC): 6 Toilet Transfer (QC): 5 Car Transfer (QC): 6 Does the Patient Walk: Yes Mode of Locomotion: Walk Anticipated Mode of Locomotion: Walk Walk 10 feet (QC): 6 Walk 50 ft with 2 Turns(QC): 6 Walk 150 ft (QC): 6 Walking 10ft on uneven surface: 6 Distance: 10', 150' Gait Assistive Device: FWW Does the Pt Use a Wheelchair: No Wheel 50 ft with 2 turns (QC): 3 Wheel 150 ft (QC): 88 Type of Wheelchair: N/A #of Steps: 4 1 Step (curb) (QC): 5 4 Steps (QC): 5 12 Steps (QC): 7 Balance Sitting Static: Normal Balance Sitting Dynamic: Fair Balance-Standing Static: Poor Picking up an Object (QC): 6 Occupational Therapy Decreased Activ Tolerance, Decreased Safety Aware, Decreased UE Strength, Impaired Coordination, Impaired Funct Balance, Impaired I ADL's Eating (QC): 6 (Independent) Oral Hygiene (QC): 6 (Ind) Shower/Bathe Self (QC): 6 (Ind with safety concerns) Upper Body Dressing (QC): 6 (Ind) Lower Body Dressing (QC): 6 (Ind) On/Off Footwear (QC): 6 (Ind) Toileting Hygiene (QC): 6 (Ind) PT Sports Book Writer Goals Sports Book Writer Goals PT Mcfp Goals Time Frame: Aug 27, 2021 Roll Left to Right (QC): 6 Sit to Lying (QC): 6 Lying-Sitting on Side/Bed(QC): 6 Sit to Stand (QC): 6 Chair/Jzw-ja-Ptjim Xfer(QC): 6 Car Transfer (QC): 6 Does the Patient Walk: Yes Walk 10 feet (QC): 6 Walk 10ft-Uneven Surface(QC): 6 Walk 50ft with 2 Turns (QC): 6 Walk 150 ft (QC): 6 Does the Pt use WC or Scooter?: No Wheel 50 feet with 2 turns (QC: 9 1 Step (curb) (QC): 4 4 Steps (QC): 4 12 Steps (QC): 88 Picking up an Object (QC): 6 OT Sports Book Writer Goals Mcfp Goals Time Frame: September 02, 2021 Eating (QC): 6 Oral Hygiene (QC): 6 Shower/Bathe Self (QC): 5 Upper Body Dressing (QC): 5 Lower Body Dressing (QC): 5 On/Off Footwear (QC): 5 Toileting Hygiene (QC): 6 Toilet/Commode Transfer (QC): 6 1=Demonstrate adherence to instructed precautions during ADL tasks. 2=Patient will verbalize/demonstrate understanding of assistive devices/modifications for ADL. 3=Patient will improve strength/tolerance for activity to enable patient to perform ADL's. GILDA SCHMIDT PT Aug 14, 2021 09:10
--- NOTE | 2021-08-14 11:37 | Discharge Summary ---
Diagnosis/Chief Complaint Date of Admission Aug 06, 2021 at 12:45 Date of Discharge Discharge Date: Aug 14, 2021 Discharge Diagnosis Assessment: Sepsis Severe delirium now resolving Sinus tachycardia UTI/pyelonephritis with gram-negative bacteremia narrowed antibiotics to Rocephin now Volume depletion requiring volume resuscitation now causing edema with third spacing so initiated Lasix 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 Galan Hypertension malignant type Hyperlipidemia Chronic cough Bipolar disorder with current flare Autoimmune connective tissue disease managed at Plan: Supportive care Consult cardiology Antibiotics DVT prophylaxis Aggressive PT and OT Speech therapy for cognitive treatment DC catheter Evaluate meds 08/08/2021: IV Lasix Supportive care for bipolar flare Continue Rocephin Monitor closely 08/09/2021: Supportive care Continue Rocephin 08/10/2021: Supportive care Rocephin Robitussin 08/11/2021: Supportive care Monitor for fever 08/12/21: Monitor closely CT reviewed and updated patient 08/13/2021: Check for C. difficile Discharge (1) Delirium Status: Acute (2) Sepsis (3) Urinary tract infection Status: Acute (4) HTN (hypertension) (5) Mixed hyperlipidemia (6) Chronic kidney disease, stage 3 (7) Primary hypertension (8) Macrocytic anemia (9) Coronary artery disease without angina pectoris (10) Bipolar disorder Status: Chronic (11) Encephalopathy acute (12) Sinus tachycardia Discharge Summary Discharge Physical Examination Allergies: Coded Allergies: celecoxib (Verified Allergy, Severe, TAKES ASPIRIN AT HOME, 10/19/18) SOA penicillin G (Verified Allergy, Mild, 10/19/18) HIVES divalproex sodium (Verified Allergy, Unknown, 10/19/18) JOINT PAIN, "GUMS BECOME LOSE AROUND TEETH" meperidine (Verified Allergy, Unknown, 10/19/18) LOSES CONTROL OF HANDS AND ARMS morphine (Verified Allergy, Unknown, 10/19/18) FLU LIKE SYMPTOMS ofloxacin (Verified Allergy, Unknown, 10/19/18) TACHYCARDIA promethazine (Verified Allergy, Unknown, 05/28/08) propoxyphene (Verified Allergy, Unknown, 10/19/18) LOSES CONTROL OF HANDS AND ARMS telavancin (Unverified Adverse Reaction, Severe, 10/19/18) SUICIDAL lamotrigine (Unverified Adverse Reaction, Intermediate, BODY JERKS, 10/19/18) SUICIDAL amitriptyline (Verified Adverse Reaction, Mild, 10/19/18) LOSES CONTROL OF HANDS AND ARMS azithromycin (Verified Adverse Reaction, Mild, 10/19/18) FLU LIKE SYMPTOMS erythromycin base (Verified Adverse Reaction, Mild, 10/19/18) NAUSEA, VOMITING promethazine HCl (Unverified Adverse Reaction, Mild, 10/19/18) HALLUCINATIONS Vitals & I&Os Vital Signs Date Time Temp Pulse Resp B/P (MAP) Pulse Ox O2 Delivery O2 Flow Rate FiO2 08/14/21 11:53 37.4 89 14 139/60 99 Room Air General Appearance: Alert, Oriented X3, Cooperative Respiratory: Clear to Auscultation Cardiovascular: Regular Rate Neuro: Normal Gait, Normal Speech, Strength at 5/5 X4 Ext Psych/Mental Status: Mental Status NL Hospital Course Was the Problem List Reviewed?: Yes Hospital course: Patient had uneventful hospital course after she was diagnosed with encephalopathy from E. coli bacteremia from pyelonephritis. She underwent additional septic work-up while in the rehab unit due to isolated fever but all blood cultures were negative and UA was negative and blood work remained stable. Low hemoglobin was managed with iron infusions. Chronic cough was managed with antitussives. Overall she did very well ambulating ad carl. time of discharge and she was discharged in improved condition. Labs (last 24 hrs) Laboratory Tests 08/07/21 06:18: White Blood Count 9.4, Red Blood Count 2.50L, Hemoglobin 7.9L, Hematocrit 24L, Mean Corpuscular Volume 97, Mean Corpuscular Hemoglobin 32, Mean Corpuscular Hemoglobin Concent 33, Red Cell Distribution Width 14.2, Platelet Count 354, Mean Platelet Volume 9.1, Immature Granulocyte % (Auto) 4, Neutrophils (%) (Auto) 74, Lymphocytes (%) (Auto) 9L, Monocytes (%) (Auto) 10, Eosinophils (%) (Auto) 3, Basophils (%) (Auto) 0, Neutrophils # (Auto) 6.9, Lymphocytes # (Auto) 0.9L, Monocytes # (Auto) 0.9, Eosinophils # (Auto) 0.3, Basophils # (Auto) 0.0, Immature Granulocyte # (Auto) 0.3H, Sodium Level 140, Potassium Level 3.5L, Chloride Level 114H, Carbon Dioxide Level 15L, Anion Gap 11, Blood Urea Nitrogen 10, Creatinine 0.97, Estimat Glomerular Filtration Rate 63, BUN/Creatinine Ratio 10, Glucose Level 126H, Calcium Level 8.2L, Corrected Calcium 9.4, Total Bilirubin 0.6, Aspartate Amino Transf (AST/SGOT) 17, Alanine Aminotransferase (ALT/SGPT) 18, Alkaline Phosphatase 60, Total Protein 5.5L, Albumin 2.5L 08/09/21 05:45: White Blood Count 8.6, Red Blood Count 2.30L, Hemoglobin 7.4L, Hematocrit 22L, Mean Corpuscular Volume 97, Mean Corpuscular Hemoglobin 32, Mean Corpuscular Hemoglobin Concent 33, Red Cell Distribution Width 14.6H, Platelet Count 326, Me an Platelet Volume 9.1, Immature Granulocyte % (Auto) 2, Neutrophils (%) (Auto) 76H, Lymphocytes (%) (Auto) 10L, Monocytes (%) (Auto) 9, Eosinophils (%) (Auto) 3, Basophils (%) (Auto) 1, Neutrophils # (Auto) 6.5, Lymphocytes # (Auto) 0.9L, Monocytes # (Auto) 0.8, Eosinophils # (Auto) 0.2, Basophils # (Auto) 0.0, Immature Granulocyte # (Auto) 0.2H, Sodium Level 140, Potassium Level 3.5L, Chloride Level 110H, Carbon Dioxide Level 18L, Anion Gap 12, Blood Urea Nitrogen 3L, Creatinine 0.82, Estimat Glomerular Filtration Rate 77, BUN/Creatinine Ratio 4, Glucose Level 107H, Calcium Level 8.3L, Corrected Calcium 9.4, Total Bilirubin 0.4, Aspartate Amino Transf (AST/SGOT) 25, Alanine Aminotransferase (ALT/SGPT) 18, Alkaline Phosphatase 62, Total Protein 5.5L, Albumin 2.6L, Neutrophils % (Manual) 77, Lymphocytes % (Manual) 12, Monocytes % (Manual) 6, Eosinophils % (Manual) 4, Band Neutrophils 1, Percent Immature Platelet Fraction 1.5, Hypochromasia SLIGHT, Anisocytosis SLIGHT, Absolute Reticulocyte Count 74, Percent Reticulocyte Count 3.17H, Magnesium Level 1.7 08/11/21 06:05: White Blood Count 7.9, Red Blood Count 2.25L, Hemoglobin 7.1L, Hematocrit 22L, Mean Corpuscular Volume 99, Mean Corpuscular Hemoglobin 32, Mean Corpuscular Hemoglobin Concent 32, Red Cell Distribution Width 14.7H, Platelet Count 343, Mean Platelet Volume 9.6, Immature Granulocyte % (Auto) 2, Neutrophils (%) (Auto) 68, Lymphocytes (%) (Auto) 17, Monocytes (%) (Auto) 10, Eosinophils (%) (Auto) 3, Basophils (%) (Auto) 1, Neutrophils # (Auto) 5.4, Lymphocytes # (Auto) 1.4, Monocytes # (Auto) 0.8, Eosinophils # (Auto) 0.2, Basophils # (Auto) 0.0, Immature Granulocyte # (Auto) 0.1, Sodium Level 140, Potassium Level 3.8, Chloride Level 107, Carbon Dioxide Level 21, Anion Gap 12, Blood Urea Nitrogen 4 L, Creatinine 0.85, Estimat Glomerular Filtration Rate 74, BUN/Creatinine Ratio 5, Glucose Level 85, Calcium Level 8.3L, Corrected Calcium 9.3, Total Bilirubin 0.3, Aspartate Amino Transf (AST/SGOT) 29, Alanine Aminotransferase (ALT/SGPT) 19, Alkaline Phosphatase 98, Total Protein 5.6L, Albumin 2.7L, Procalcitonin 0.08 08/11/21 19:55: Lactic Acid Level 1.45 08/11/21 20:20: Urine Color YELLOW, Urine Clarity CLEAR, Urine pH 5.5, Urine Specific [place] <=1.005, Urine Protein NEGATIVE, Urine Glucose (UA) NEGATIVE, Urine Ketones NEGATIVE, Urine Nitrite NEGATIVE, Urine Bilirubin NEGATIVE, Urine Urobilinogen 0.2, Urine Leukocyte Esterase NEGATIVE, Urine RBC (Auto) TRACE-IH, Urine RBC RARE, Urine WBC RARE, Urine Squamous Epithelial Cells NONE, Urine Crystals NONE, Urine Bacteria NEGATIVE, Urine Casts NONE, Urine Mucus NEGATIVE, Urine Culture Indicated NO 08/11/21 21:53: White Blood Count 9.9, Red Blood Count 2.24L, Hemoglobin 7.1L, Hematocrit 22L, Mean Corpuscular Volume 98, Mean Corpuscular Hemoglobin 32, Mean Corpuscular Hemoglobin Concent 32, Red Cell Distribution Width 14.8H, Platelet Count 376, Mean Platelet Volume 9.6, Immature Granulocyte % (Auto) 1, Neutrophils (%) (Auto) 76H, Lymphocytes (%) (Auto) 13, Monocytes (%) (Auto) 8, Eosinophils (%) (Auto) 2, Basophils (%) (Auto) 0, Neutrophils # (Auto) 7.5, Lymphocytes # (Auto) 1.3, Monocytes # (Auto) 0.8, Eosinophils # (Auto) 0.2, Basophils # (Auto) 0.0, Immature Granulocyte # (Auto) 0.1, Sodium Level 136, Potassium Level 3.7, Chloride Level 102, Carbon Dioxide Level 21, Anion Gap 13, Blood Urea Nitrogen 4L, Creatinine 0.84, Estimat Glomerular Filtration Rate 75, BUN/Creatinine Ratio 5, Glucose Level 100, Calcium Level 8.4L, Corrected Calcium 9.3, Total Bilirubin 0.3, Aspartate Amino Transf (AST/SGOT) 26, Alanine Aminotransferase (ALT/SGPT) 19, Alkaline Phosphatase 88, Total Protein 5.6L, Albumin 2.9L, Procalcitonin 0.07 08/12/21 06:53: White Blood Count 9.0, Red Blood Count 2.30L, Hemoglobin 7.3L, Hematocrit 23L, Mean Corpuscular Volume 99, Mean Corpuscular Hemoglobin 32, Mean Corpuscular Hemoglobin Concent 32, Red Cell Distribution Width 14.9H, Platelet Count 334, Mean Platelet Volume 9.2, Immature Granulocyte % (Auto) 1, Neutrophils (%) (Auto) 72, Lymphocytes (%) (Auto) 15, Monocytes (%) (Auto) 10, Eosinophils (%) (Auto) 2, Basophils (%) (Auto) 0, Neutrophils # (Auto) 6.5, Lymphocytes # (Auto) 1.3, Monocytes # (Auto) 0.9, Eosinophils # (Auto) 0.2, Basophils # (Auto) 0.0, Immature Granulocyte # (Auto) 0.1, Sodium Level 139, Potassium Level 3.8, Chloride Level 104, Carbon Dioxide Level 24, Anion Gap 11, Blood Urea Nitrogen 4L, Creatinine 0.84, Estimat Glomerular Filtration Rate 75, BUN/Creatinine Ratio 5, Glucose Level 92, Calcium Level 8.1L, Corrected Calcium 9.1, Total Bilirubin 0.3, Aspartate Amino Transf (AST/SGOT) 23, Alanine Aminotransferase (ALT/SGPT) 16, Alkaline Phosphatase 83, Total Protein 5.6L, Albumin 2.7L, Procalcitonin 0.07, Erythrocyte Sedimentation Rate 72H, Lactic Acid Level 1.25, C-Reactive Protein High Sensitivity 6.03H Microbiology 08/13/21 C. difficile GDH Antigen & Toxins - Final, Complete 08/11/21 Blood Culture - Preliminary, Resulted No growth Pending Labs Microbiology Date/Time Source Procedure Growth Status 08/13/21 10:15 Stool C. difficile GDH Antigen & Toxins - Final Complete 08/11/21 19:55 Peripheral Rt Ac Blood Culture - Preliminary No growth Resulted 08/11/21 19:55 Peripheral Lt Ac Blood Culture - Preliminary No growth Resulted Laboratory Tests 08/07/21 06:18: White Blood Count 9.4, Red Blood Count 2.50, Hemoglobin 7.9, Hematocrit 24, Mean Corpuscular Volume 97, Mean Corpuscular Hemoglobin 32, Mean Corpuscular Hemog lobin Concent 33, Red Cell Distribution Width 14.2, Platelet Count 354, Mean Platelet Volume 9.1, Immature Granulocyte % (Auto) 4, Neutrophils (%) (Auto) 74, Lymphocytes (%) (Auto) 9, Monocytes (%) (Auto) 10, Eosinophils (%) (Auto) 3, Basophils (%) (Auto) 0, Neutrophils # (Auto) 6.9, Lymphocytes # (Auto) 0.9, Monocytes # (Auto) 0.9, Eosinophils # (Auto) 0.3, Basophils # (Auto) 0.0, Immature Granulocyte # (Auto) 0.3, Sodium Level 140, Potassium Level 3.5, Chloride Level 114, Carbon Dioxide Level 15, Anion Gap 11, Blood Urea Nitrogen 10, Creatinine 0.97, Estimat Glomerular Filtration Rate 63, BUN/Creatinine Ratio 10, Glucose Level 126, Calcium Level 8.2, Corrected Calcium 9.4, Total Bilirubin 0.6, Aspartate Amino Transf (AST/SGOT) 17, Alanine Aminotransferase (ALT/SGPT) 18, Alkaline Phosphatase 60, Total Protein 5.5, Albumin 2.5 08/09/21 05:45: White Blood Count 8.6, Red Blood Count 2.30, Hemoglobin 7.4, Hematocrit 22, Mean Corpuscular Volume 97, Mean Corpuscular Hemoglobin 32, Mean Corpuscular Hemoglobin Concent 33, Red Cell Distribution Width 14.6, Platelet Count 326, Mean Platelet Volume 9.1, Immature Granulocyte % (Auto) 2, Neutrophils (%) (Auto) 76, Lymphocytes (%) (Auto) 10, Monocytes (%) (Auto) 9, Eosinophils (%) (Auto) 3, Basophils (%) (Auto) 1, Neutrophils # (Auto) 6.5, Lymphocytes # (Auto) 0.9, Monocytes # (Auto) 0.8, Eosinophils # (Auto) 0.2, Basophils # (Auto) 0.0, Immature Granulocyte # (Auto) 0.2, Sodium Level 140, Potassium Level 3.5, Chloride Level 110, Carbon Dioxide Level 18, Anion Gap 12, Blood Urea Nitrogen 3, Creatinine 0.82, Estimat Glomerular Filtration Rate 77, BUN/Creatinine Ratio 4, Glucose Level 107, Calcium Level 8.3, Corrected Calcium 9.4, Total Bilirubin 0.4, Aspartate Amino Transf (AST/SGOT) 25, Alanine Aminotransferase (ALT/SGPT) 18, Alkaline Phosphatase 62, Total Protein 5.5, Albumin 2.6, Neutrophils % (Manual) 77, Lymphocytes % (Manual) 12, Monocytes % (Manual) 6, Eosinophils % (Manual) 4, Band Neutrophils 1, Percent Immature Platelet Fraction 1.5, Hypochromasia SLIGHT, Anisocytosis SLIGHT, Absolute Reticulocyte Count 74, Percent Reticulocyte Count 3.17, Magnesium Level 1.7 08/11/21 06:05: White Blood Count 7.9, Red Blood Count 2.25, Hemoglobin 7.1, Hematocrit 22, Mean Corpuscular Volume 99, Mean Corpuscular Hemoglobin 32, Mean Corpuscular Hemoglobin Concent 32, Red Cell Distribution Width 14.7, Platelet Count 343, Me an Platelet Volume 9.6, Immature Granulocyte % (Auto) 2, Neutrophils (%) (Auto) 68, Lymphocytes (%) (Auto) 17, Monocytes (%) (Auto) 10, Eosinophils (%) (Auto) 3, Basophils (%) (Auto) 1, Neutrophils # (Auto) 5.4, Lymphocytes # (Auto) 1.4, Monocytes # (Auto) 0.8, Eosinophils # (Auto) 0.2, Basophils # (Auto) 0.0, Immature Granulocyte # (Auto) 0.1, Sodium Level 140, Potassium Level 3.8, Chloride Level 107, Carbon Dioxide Level 21, Anion Gap 12, Blood Urea Nitrogen 4, Creatinine 0.85, Estimat Glomerular Filtration Rate 74, BUN/Creatinine Ratio 5, Glucose Level 85, Calcium Level 8.3, Corrected Calcium 9.3, Total Bilirubin 0.3, Aspartate Amino Transf (AST/SGOT) 29, Alanine Aminotransferase (ALT/SGPT) 19, Alkaline Phosphatase 98, Total Protein 5.6, Albumin 2.7, Procalcitonin 0.08 08/11/21 19:55: Lactic Acid Level 1.45 08/11/21 20:20: Urine Color YELLOW, Urine Clarity CLEAR, Urine pH 5.5, Urine Specific [place] <=1.005, Urine Protein NEGATIVE, Urine Glucose (UA) NEGATIVE, Urine Ketones NEGATIVE, Urine Nitrite NEGATIVE, Urine Bilirubin NEGATIVE, Urine Urobilinogen 0.2, Urine Leukocyte Esterase NEGATIVE, Urine RBC (Auto) TRACE-I, Urine RBC RARE, Urine WBC RARE, Urine Squamous Epithelial Cells NONE, Urine Crystals NONE, Urine Bacteria NEGATIVE, Urine Casts NONE, Urine Mucus NEGATIVE, Urine Culture Indicated NO 08/11/21 21:53: White Blood Count 9.9, Red Blood Count 2.24, Hemoglobin 7.1, Hematocrit 22, Mean Corpuscular Volume 98, Mean Corpuscular Hemoglobin 32, Mean Corpuscular Hemoglobin Concent 32, Red Cell Distribution Width 14.8, Platelet Count 376, Mean Platelet Volume 9.6, Immature Granulocyte % (Auto) 1, Neutrophils (%) (Auto) 76, Lymphocytes (%) (Auto) 13, Monocytes (%) (Auto) 8, Eosinophils (%) (Auto) 2, Basophils (%) (Auto) 0, Neutrophils # (Auto) 7.5, Lymphocytes # (Auto) 1.3, Monocytes # (Auto) 0.8, Eosinophils # (Auto) 0.2, Basophils # (Auto) 0.0, Immature Granulocyte # (Auto) 0.1, Sodium Level 136, Potassium Level 3.7, Chloride Level 102, Carbon Dioxide Level 21, Anion Gap 13, Blood Urea Nitrogen 4, Creatinine 0.84, Estimat Glomerular Filtration Rate 75, BUN/Creatinine Ratio 5, Glucose Level 100, Calcium Level 8.4, Corrected Calcium 9.3, Total Bilirubin 0.3, Aspartate Amino Transf (AST/SGOT) 26, Alanine Aminotransferase (ALT/SGPT) 19, Alkaline Phosphatase 88, Total Protein 5.6, Albumin 2.9, Procalcitonin 0.07 08/12/21 06:53: White Blood Count 9.0, Red Blood Count 2.30, Hemoglobin 7.3, Hematocrit 23, Mean Corpuscular Volume 99, Mean Corpuscular Hemoglobin 32, Mean Corpuscular Hemoglobin Concent 32, Red Cell Distribution Width 14.9, Platelet Count 334, Mean Platelet Volume 9.2, Immature Granulocyte % (Auto) 1, Neutrophils (%) (Auto) 72, Lymphocytes (%) (Auto) 15, Monocytes (%) (Auto) 10, Eosinophils (%) (Auto) 2, Basophils (%) (Auto) 0, Neutrophils # (Auto) 6.5, Lymphocytes # (Auto) 1.3, Monocytes # (Auto) 0.9, Eosinophils # (Auto) 0.2, Basophils # (Auto) 0.0, Immature Granulocyte # (Auto) 0.1, Sodium Level 139, Potassium Level 3.8, Chlo ride Level 104, Carbon Dioxide Level 24, Anion Gap 11, Blood Urea Nitrogen 4, Creatinine 0.84, Estimat Glomerular Filtration Rate 75, BUN/Creatinine Ratio 5, Glucose Level 92, Calcium Level 8.1, Corrected Calcium 9.1, Total Bilirubin 0.3, Aspartate Amino Transf (AST/SGOT) 23, Alanine Aminotransferase (ALT/SGPT) 16, Alkaline Phosphatase 83, Total Protein 5.6, Albumin 2.7, Procalcitonin 0.07, Erythrocyte Sedimentation Rate 72, Lactic Acid Level 1.25, C-Reactive Protein High Sensitivity 6.03 Discharge Home Medications: Active Scripts Active Toprol Xl (Metoprolol Succinate) 100 Mg Tab.er.24h 100 Mg PO HS Losartan Potassium 100 Mg Tablet 100 Mg PO DAILY Aspirin EC (Aspirin) 81 Mg Tablet.dr 81 Mg PO DAILY Colestid (Colestipol HCl) 1 Gm Tab 1 Gm PO BID Reported Pantoprazole Sodium 40 Mg Tablet.dr 40 Mg PO DAILY Nitroglycerin 0.4 Mg Tab.subl 0.4 Mg SL UD PRN Celexa (Citalopram Hydrobromide) 40 Mg Tablet 40 Mg PO DAILY Metoprolol Succinate 200 Mg Tab.er.24h 200 Mg PO DAILY Hydroxychloroquine Sulfate 200 Mg Tablet 200 Mg PO BID Azulfidine (Sulfasalazine) 500 Mg Tablet 1,500 Mg PO BID TAKES 3 (500MG) TABLETS K-Tab ER (Potassium Chloride) 20 Meq Tablet.er 20 Meq PO DAILY Furosemide 40 Mg Tablet 40 Mg PO DAILY Dicyclomine HCl 20 Mg Tablet 20 Mg PO QID Baclofen 10 Mg Tablet 20 Mg PO TID TAKES 2 (10MG) TABLETS Simvastatin 20 Mg Tablet 20 Mg PO HS Gabapentin 600 Mg Tablet 1,200 Mg PO TID TAKES 2 (600MG) TABLETS Instructions to patient/family Please see electronic discharge instructions given to patient. Diagnosis/Problems Diagnosis/Problems (1) Delirium Status: Acute (2) Sepsis (3) Urinary tract infection Status: Acute (4) HTN (hypertension) Qualifiers: Qualified Codes: I10 - Essential (primary) hypertension (5) Mixed hyperlipidemia (6) Chronic kidney disease, stage 3 (7) Primary hypertension (8) Macrocytic anemia (9) Coronary artery disease without angina pectoris (10) Bipolar disorder Status: Chronic (11) Encephalopathy acute (12) Sinus tachycardia SUZE COOPER DO Aug 14, 2021 11:37
--- NOTE | 2021-08-14 11:45 | Therapy Team Discharge Summary ---
Therapy Discharge Summary Discharge Recommendations Date of Discharge Therapy D/C Recommendations: Home w/ Family Support Physical Therapy Roll Left to Right (QC): 6 Sit to Lying (QC): 6 Lying to Sitting/Side of Bed(Q: 6 Sit to Stand (QC): 6 Chair/Xxg-tx-Nlyej Xfer(QC): 6 Toilet Transfer (QC): 5 Car Transfer (QC): 6 Does the Patient Walk: Yes Mode of Locomotion: Walk Anticipated Mode of Locomotion: Walk Walk 10 feet (QC): 6 Walk 50 ft with 2 Turns(QC): 6 Walk 150 ft (QC): 6 Walking 10ft on uneven surface: 6 Distance: 10', 150' Gait Assistive Device: FWW Does the Pt Use a Wheelchair: No Wheel 50 ft with 2 turns (QC): 3 Wheel 150 ft (QC): 88 Type of Wheelchair: N/A #of Steps: 4 1 Step (curb) (QC): 5 4 Steps (QC): 5 12 Steps (QC): 7 Balance Sitting Static: Normal Balance Sitting Dynamic: Fair Balance-Standing Static: Poor Picking up an Object (QC): 6 Occupational Therapy Pt admitted to ARU with sepsis; encephalopathy. At time of eval, pt was dependent for toileting and bathing, max a for footwear and lower body dressing, min a for upper body dressing, and set up for oral care. During rehab stay, OT focused on safety, endurance, strengthening, balance, cognition, energy conservation, and adaptive strategies in order to improve indep and safety with adls and mobility. 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 Pt is now indep with all adls and functional transfers. She will be discharged from this facility today and will be discharged from OT at this time. Decreased Activ Tolerance, Decreased Safety Aware, Decreased UE Strength, Impaired Coordination, Impaired Funct Balance, Impaired I ADL's Eating (QC): 6 (Independent) Oral Hygiene (QC): 6 (Ind) Shower/Bathe Self (QC): 6 (Ind with safety concerns) Upper Body Dressing (QC): 6 (Ind) Lower Body Dressing (QC): 6 (Ind) On/Off Footwear (QC): 6 (Ind) Toileting Hygiene (QC): 6 (Ind) PT Assisted Goals Bulb Sorter Goals PT Bulb Sorter Goals Time Frame: Aug 27, 2021 Roll Left to Right (QC): 6 Sit to Lying (QC): 6 Lying-Sitting on Side/Bed(QC): 6 Sit to Stand (QC): 6 Chair/Biw-ow-Akrfx Xfer(QC): 6 Car Transfer (QC): 6 Does the Patient Walk: Yes Walk 10 feet (QC): 6 Walk 10ft-Uneven Surface(QC): 6 Walk 50ft with 2 Turns (QC): 6 Walk 150 ft (QC): 6 Does the Pt use WC or Scooter?: No Wheel 50 feet with 2 turns (QC: 9 1 Step (curb) (QC): 4 4 Steps (QC): 4 12 Steps (QC): 88 Picking up an Object (QC): 6 OT Bulb Sorter Goals Assisted Goals Time Frame: September 02, 2021 Eating (QC): 6 (met) Oral Hygiene (QC): 6 (met) Shower/Bathe Self (QC): 5 (met) Upper Body Dressing (QC): 5 (met) Lower Body Dressing (QC): 5 (met) On/Off Footwear (QC): 5 (met) Toileting Hygiene (QC): 6 (met) Toilet/Commode Transfer (QC): 6 (met) 1=Demonstrate adherence to instructed precautions during ADL tasks. 2=Patient will verbalize/demonstrate understanding of assistive devices/modifi cations for ADL. 3=Patient will improve strength/tolerance for activity to enable patient to perform ADL's. Leatha Lerma OT Aug 14, 2021 11:45
[2021-08-14 11:53] VITALS: BP 139/60
--- NOTE | 2021-08-14 16:33 | Progress Note - Cardiology ---
Cardiology SOAP Progress Note Subjective: LATE ENTRY FOR MY VISIT TO THE PATIENT AT 9:15 AM ON 08/13/21 Gen malaise is improving Leg swelling is better with the use of AMARI stocking No cp or palp or syncope or shortness of breath No n/v/d Objective: I&O/Vital Signs 08/14/21 08/14/21 08/14/21 08/14/21 07:29 07:56 09:16 11:53 Temp 37.4 37.4 Pulse 89 89 Resp 14 14 B/P (MAP) 170/71 (104) 139/60 (86) 139/60 Pulse Ox 94 99 99 O2 Delivery Room Air Room Air Room Air Weight (Pounds): 175 Weight (Ounces): 0.0 Weight (Calculated Kilograms): 79.640403 Constitutional: AAO x 3, well-developed, well-nourished Respiratory: No accessory muscle use; other (good, bilat air entry) Cardiovascular: regular rate-rhythm, S1 and S2, systolic murmur (soft GENET at card base) Gastrointestional: No tender; soft; No guarding, No rebound; audible bowel sounds Extremities: swelling (1-2+, bilateral legedema); No clubbing, No cyanosis Neurologic/Psychiatric: oriented x 3, other (moves all limbs equally) Skin: normal color, warm/dry; No rash on exposed areas, No ulcerations on exposed areas Results/Procedures: Labs Microbiology 08/13/21 C. difficile GDH Antigen & Toxins - Final, Complete 08/11/21 Blood Culture - Preliminary, Resulted No growth A/P: Assessment: Leg swelling due to venous insufficiency and calcium-channel dwaine therapy Recent UTI with sepsis and delirium, improved Hypertension, improved H/o mild, chronic diastolic CHF, none currently CAD. Card cath of 01/10/19: patent stent (done in [place], [place] in 2006) in the ostial/prox RCA, no significant CAD, LVEF 65%, elevated LVEDP, no renal artery stenosis Labile hypertension and white-coat hypertension - intolerant to doxazosin d/t profound dizziness Echocardiogram of May 10, 2018 showed LVEF 60-65%. Mild MR and AoR. 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 Lung volumes WNL, diffusion capacity WNL Carotid u/s from 05-31-15 showed less than 40% R ICA stenosis and approx 60% L ICA stenosis for which she is following with Dr. Lechuga Chronic gen fatigue. TSH normal on 03/30/17 (3.11) H/o anemia, followed and treated by her pcp Dr Tee Multiple medication intolerances Plan: * Monitor labs * Continue current regimen LATE ENTRY FOR MY VISIT TO THE PATIENT AT 9:15 AM ON 08/13/21 CHAVEZ LR MD FACP FAC CCDS Aug 14, 2021 16:33
--- NOTE | 2021-08-14 16:36 | Progress Note - Cardiology ---
Cardiology SOAP Progress Note Subjective: Wishes to go home Wants clonidine patch off because she has read that clonidine promotes dementia No cp or palp or syncope Leg swelling is mild and in line with what she has had chronically No n/v/d Objective: I&O/Vital Signs 08/14/21 08/14/21 08/14/21 08/14/21 07:29 07:56 09:16 11:53 Temp 37.4 37.4 Pulse 89 89 Resp 14 14 B/P (MAP) 170/71 (104) 139/60 (86) 139/60 Pulse Ox 94 99 99 O2 Delivery Room Air Room Air Room Air Weight (Pounds): 175 Weight (Ounces): 0.0 Weight (Calculated Kilograms): 79.749626 Constitutional: AAO x 3, well-developed, well-nourished Respiratory: No accessory muscle use; other (good, bilat air entry) Cardiovascular: regular rate-rhythm, S1 and S2, systolic murmur (soft GENET at card base) Gastrointestional: No tender; soft; No guarding, No rebound; audible bowel sounds Extremities: swelling (1-2+, bilateral legedema); No clubbing, No cyanosis Neurologic/Psychiatric: oriented x 3, other (moves all limbs equally) Skin: normal color, warm/dry; No rash on exposed areas, No ulcerations on exposed areas Results/Procedures: Labs Microbiology 08/13/21 C. difficile GDH Antigen & Toxins - Final, Complete 08/11/21 Blood Culture - Preliminary, Resulted No growth A/P: Assessment: Leg swelling due to venous insufficiency and calcium-channel dwaine therapy Recent UTI with sepsis and delirium, improved Hypertension, improved H/o mild, chronic diastolic CHF, none currently CAD. Card cath of 01/10/19: patent stent (done in [place], [place] in 2006) in the ostial/prox RCA, no significant CAD, LVEF 65%, elevated LVEDP, no renal artery stenosis Labile hypertension and white-coat hypertension - intolerant to doxazosin d/t profound dizziness Echocardiogram of May 10, 2018 showed LVEF 60-65%. Mild MR and AoR. 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 Lung volumes WNL, diffusion capacity WNL Carotid u/s from 05-31-15 showed less than 40% R ICA stenosis and approx 60% L ICA stenosis for which she is following with Dr. Lechuga Chronic gen fatigue. TSH normal on 03/30/17 (3.11) H/o anemia, followed and treated by her pcp Dr Tee Multiple medication intolerances Plan: * D/c clonidine per patient request * Increase beta-dwaine to control bp * Outpt f/u advised * CV-related questions answered CHAVEZ LR MD FACP FAC CCDS Aug 14, 2021 16:36
[2021-08-14] MEDS ORDERED: meTOprolol SUCCINATE 100 MG (TOPROL XL) TAB PO SCH (21:00)
== END 2021-08-14 11:56 | disposition home or self-care (01) | DRG 70 ==
PROVIDERS: ADMIT Internal Medicine; ATTEND Internal Medicine
DX: G93.40 Encephalopathy, unspecified (principal); A41.51 Sepsis due to Escherichia coli [E. coli]; N39.0 Urinary tract infection, site not specified; I50.32 Chronic diastolic (congestive) heart failure; M35.89 Other specified systemic involvement of connective tissue; I13.0 Hypertensive heart and chronic kidney disease with heart failure and stage 1 through stage 4 chronic kidney disease, or unspecified chronic kidney disease; I25.10 Atherosclerotic heart disease of native coronary artery without angina pectoris; E78.00 Pure hypercholesterolemia, unspecified; M19.91 Primary osteoarthritis, unspecified site; M79.7 Fibromyalgia; F41.9 Anxiety disorder, unspecified; F31.9 Bipolar disorder, unspecified; H91.90 Unspecified hearing loss, unspecified ear; N18.30 Chronic kidney disease, stage 3 unspecified; R60.0 Localized edema; E78.2 Mixed hyperlipidemia; D53.9 Nutritional anemia, unspecified; I87.2 Venous insufficiency (chronic) (peripheral); I08.0 Rheumatic disorders of both mitral and aortic valves; R00.0 Tachycardia, unspecified; E86.9 Volume depletion, unspecified; Z95.5 Presence of coronary angioplasty implant and graft; Z88.1 Allergy status to other antibiotic agents; Z88.5 Allergy status to narcotic agent; Z88.0 Allergy status to penicillin; Z88.8 Allergy status to other drugs, medicaments and biological substances; Z82.61 Family history of arthritis; Z82.49 Family history of ischemic heart disease and other diseases of the circulatory system
CPT/HCPCS: 36415; 71045; 71260; 74177; 80053; 81000; 83605; 83735; 84145; 85007; 85025; 85045; 85055; 85652; 86141; 87040; 87324; 87449

== ENCOUNTER 2022-02-04 16:01 | Emergency (ER) | payer MEDICARE, OTHER ==
[~2022-02-04 16:01] MED LIST changes: +ASPI-1238 PO; +CLON1PAT34 TD; +METO100T6 PO; +NF-COLE1GM PO; +SULF1TAB38 PO
--- NOTE | 2022-02-04 16:54 | ED General ---
General Chief Complaint: Altered Mental Status Stated Complaint: SLOW SPEAKING,PREVIOUSLY SEPTIC,CURRENT UTI Nursing Triage Note: PT TO TRIAGE WITH C/O AMS POSS FROM A PREVIOUS BLADDER INFECTION 10 DAYS AGO. PT STATES HER FAMILY MADE HER COME AND SHE THINKS SHES FINE Source of Information: Patient, Family Exam Limitations: No Limitations (PATRICIA LANDIN APRN) History of Present Illness Date Seen by Provider: Feb 04, 2022 Time Seen by Provider: 16:12 Initial Comments This is a 71-year-old female who presented to the ER with family for concerns of altered mentation, not acting herself. Spouse states that she had similar symptoms when she was admitted and treated for urosepsis. She has been in [place] with her daughter for the past week and has been taking Bactrim for a bladder infection that she started 10 days ago. Son states that he was sitting with her at home and all of a sudden she started having inappropriate emotional responses such as laughing inappropriately, may be coming very tearful, talking about things that did not make sense. She does have a history of bipolar disorder, family believes she sees a psychiatrist Dr. Sorenson in [place] however they are unsure if she does follow with this person. Her primary care provider is Dr. Cooper. (PATRICIA LANDIN APRN) Allergies and Home Medications Allergies Coded Allergies: celecoxib (Verified Allergy, Severe, TAKES ASPIRIN AT HOME, 10/19/18) SOA penicillin G (Verified Allergy, Mild, 10/19/18) HIVES divalproex sodium (Verified Allergy, Unknown, 10/19/18) JOINT PAIN, "GUMS BECOME LOSE AROUND TEETH" meperidine (Verified Allergy, Unknown, 10/19/18) LOSES CONTROL OF HANDS AND ARMS morphine (Verified Allergy, Unknown, 10/19/18) FLU LIKE SYMPTOMS ofloxacin (Verified Allergy, Unknown, 10/19/18) TACHYCARDIA promethazine (Verified Allergy, Unknown, 05/28/08) propoxyphene (Verified Allergy, Unknown, 10/19/18) LOSES CONTROL OF HANDS AND ARMS telavancin (Unverified Adverse Reaction, Severe, 10/19/18) SUICIDAL lamotrigine (Unverified Adverse Reaction, Intermediate, BODY JERKS, 10/19/18) SUICIDAL amitriptyline (Verified Adverse Reaction, Mild, 10/19/18) LOSES CONTROL OF HANDS AND ARMS azithromycin (Verified Adverse Reaction, Mild, 10/19/18) FLU LIKE SYMPTOMS erythromycin base (Verified Adverse Reaction, Mild, 10/19/18) NAUSEA, VOMITING promethazine HCl (Unverified Adverse Reaction, Mild, 10/19/18) HALLUCINATIONS Patient Home Medication List Home Medication List Reviewed: Yes (PATRICIA LANDIN APRN) Aspirin (Aspirin EC) 81 Mg Tablet.dr, 81 MG PO DAILY Prescribed by: SUZE COOPER on 08/14/21621 Baclofen (Baclofen) 10 Mg Tablet, 20 MG PO TID, (Reported) Entered as Reported by: ALVIN GARVEY on 01/16/16 0838 Citalopram Hydrobromide (Celexa) 40 Mg Tablet, 40 MG PO DAILY, (Reported) Entered as Reported by: ALVIN GARVEY on 10/20/18 1034 Colestipol HCl (Colestid) 1 Gm Tab, 1 GM PO BID Prescribed by: SUZE COOPER on 08/14/21621 Dicyclomine HCl (Dicyclomine HCl) 20 Mg Tablet, 20 MG PO QID, (Reported) Entered as Reported by: ALVIN GARVEY on 10/20/18 1034 Furosemide (Furosemide) 40 Mg Tablet, 40 MG PO DAILY, (Reported) Entered as Reported by: ALVIN GARVEY on 10/20/18 103 Gabapentin (Gabapentin) 600 Mg Tablet, 1,200 MG PO TID, (Reported) Entered as Reported by: ALVIN GARVEY on 01/16/16 0821 Hydroxychloroquine Sulfate (Hydroxychloroquine Sulfate) 200 Mg Tablet, 200 MG PO BID, (Reported) Entered as Reported by: ALVIN GARVEY on 10/20/18 1034 Losartan Potassium (Losartan Potassium) 100 Mg Tablet, 100 MG PO DAILY Prescribed by: YAO ARREDONDO on 08/14/21 0857 Metoprolol Succinate (Metoprolol Succinate) 200 Mg Tab.er.24h, 200 MG PO DAILY, (Reported) Entered as Reported by: ALVIN GARVEY on 10/20/18 1034 Metoprolol Succinate (Toprol Xl) 100 Mg Tab.er.24h, 100 MG PO HS Prescribed by: YAO ARREDONDO on 08/14/21 0857 Nitroglycerin (Nitroglycerin) 0.4 Mg Tab.subl, 0.4 MG SL UD PRN for CHEST PAIN, (Reported) Entered as Reported by: ANNE CURTIS on 01/10/19 0834 Pantoprazole Sodium (Pantoprazole Sodium) 40 Mg Tablet.dr, 40 MG PO DAILY, (Reported) Entered as Reported by: ELIF ALVAREZ on 08/04/21 1150 Potassium Chloride (K-Tab ER) 20 Meq Tablet.er, 20 MEQ PO DAILY, (Reported) Entered as Reported by: ALVIN GARVEY on 10/20/18 1034 Simvastatin (Simvastatin) 20 Mg Tablet, 20 MG PO HS, (Reported) Entered as Reported by: ALVIN GARVEY on 01/16/16 0821 Sulfamethoxazole/Trimethoprim (Bactrim Ds Tablet) 1 Each Tablet, 1 EA PO BID WITH MEALS Prescribed by: SUZE COOPER on 10/21/21 1824 Sulfasalazine (Azulfidine) 500 Mg Tablet, 1,500 MG PO BID, (Reported) Entered as Reported by: ALVIN GARVEY on 10/20/18 1034 Review of Systems Review of Systems Constitutional: see HPI (PATRICIA LANDIN COMPUTATOR) Past Bmasihb-Uuvtgk-Mtcccj Hx Immunizations Up To Date Tetanus Booster (TDap): Less than 5yrs PED Vaccines UTD: No First/Initial COVID19 Vaccinat: UTD Second COVID19 Vaccination Isaiah: UTD (PATRICIA LANDIN COMPUTATOR) Seasonal Allergies Seasonal Allergies: No (PATRICIA LANDIN COMPUTATOR) Past Medical History Surgery/Hospitalization HX: bilat carpel tunnel, coronary stent, , gallbladder, ppm, hernia repair afib, cad, htn, mi, high cholesterol, pvd, uti, arthritis, iddm Surgeries: Yes (ANGIOPLASTY; CARDIAC STENT ) Adenoidectomy, Appendectomy, Cardiac, Coronary Stent, Gallbladder, Orthopedic, Tonsillectomy Respiratory: No Cardiac: Yes (CARDIAC STENT X4, ANGIOPLASTY X 2; CAROTID DISEASE) Coronary Artery Disease, High Cholesterol, Hypertension Neurological: No Reproductive Disorders: Yes (unable to have children) LEAD TINNER History: Menopausal UTI-Chronic Gastrointestinal: Yes (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) Colitis, Irritable Bowel Musculoskeletal: Yes (CHRONIC GENREALIZED PAIN; MULTIPLE ORTHO PROCEDURES ON HANDS) Arthritis, Fibromyalgia, Fractures Endocrine: No Hearing Impairment: Hard of Hearing Cancer: No Psychosocial: Yes Anxiety, Bipolar, Depression Integumentary: No Blood Disorders: No Adverse Reaction/Blood Tranf: No (PATRICIA LANDIN APRN) Family Medical History Arthritis 19 MOTHER G8 SISTER Cardiovascular disease 19 MOTHER G8 BROTHER G8 BROTHER Cirhosis of liver G8 SISTER Kidney disease G8 SISTER Ms No Pertinent Family Hx (PATRICIA LANDIN APRN) Physical Exam Vital Signs Capillary Refill : (PATRICIA LANDIN APRN) Height, Weight, BMI Height: 5'6.00" Weight: 175lbs. 0.0oz. 79.777449wt; 28.90 BMI Method:Stated General Appearance: No Apparent Distress, Anxious Eyes: Bilateral Eye Normal Inspection, Bilateral Eye PERRL, Bilateral Eye EOMI HEENT: PERRL/EOMI, Normal ENT Inspection, Pharynx Normal, Moist Mucous Membranes Neck: Full Range of Motion, Normal Inspection, Non Tender Respiratory: Lungs Clear, Normal Breath Sounds, No Accessory Muscle Use, No Respiratory Distress (PATRICIA LANDIN APRN) Focused Exam Lactate Level 02/04/22 16:53: Lactic Acid Level 1.54 (LUZ BATEMAN MD) Lactic Acid Level Laboratory Tests Test 02/04/22 16:53 Lactic Acid Level 1.54 MMOL/L (0.50-2.00) (LUZ BATEMAN MD) Progress/Results/Core Measures Suspected Sepsis SIRS Temperature: Pulse: 69 Respiratory Rate: 16 Laboratory Tests 02/04/22 16:53: White Blood Count 7.0 Blood Pressure 194 /77 Mean: 116 02/04/22 16:53: Lactic Acid Level 1.54 Laboratory Tests 02/04/22 16:53: Creatinine 1.03, INR Comment 1.2, Platelet Count 274, Total Bilirubin 0.8 (PATRICIA LANDIN APRN) Results/Orders Lab Results Laboratory Tests Test 02/04/22 16:53 02/04/22 17:48 Range/Units White Blood Count 7.0 4.3-11.0 10^3/uL Red Blood Count 3.34 L 3.80-5.11 10^6/uL Hemoglobin 10.9 L 11.5-16.0 g/dL Hematocrit 33 L 35-52 % Mean Corpuscular Volume 98 80-99 fL Mean Corpuscular Hemoglobin 33 25-34 pg Mean Corpuscular Hemoglobin Concent 33 32-36 g/dL Red Cell Distribution Width 12.8 10.0-14.5 % Platelet Count 274 130-400 10^3/uL Mean Platelet Volume 9.3 9.0-12.2 fL Immature Granulocyte % (Auto) 0 % Neutrophils (%) (Auto) 82 H 42-75 % Lymphocytes (%) (Auto) 11 L 12-44 % Monocytes (%) (Auto) 6 0-12 % Eosinophils (%) (Auto) 1 0-10 % Basophils (%) (Auto) 0 0-10 % Neutrophils # (Auto) 5.8 1.8-7.8 10^3/uL Lymphocytes # (Auto) 0.8 L 1.0-4.0 10^3/uL Monocytes # (Auto) 0.4 0.0-1.0 10^3/uL Eosinophils # (Auto) 0.1 0.0-0.3 10^3/uL Basophils # (Auto) 0.0 0.0-0.1 10^3/uL Immature Granulocyte # (Auto) 0.0 0.0-0.1 10^3/uL Prothrombin Time 15.2 H 12.2-14.7 SEC INR Comment 1.2 0.8-1.4 Activated Partial Thromboplast Time 37 H 24-35 SEC Sodium Level 133 L 135-145 MMOL/L Potassium Level 4.3 3.6-5.0 MMOL/L Chloride Level 105 98-107 MMOL/L Carbon Dioxide Level 22 21-32 MMOL/L Anion Gap 6 5-14 MMOL/L Blood Urea Nitrogen 14 7-18 MG/DL Creatinine 1.03 0.60-1.30 MG/DL Estimat Glomerular Filtration Rate 58 BUN/Creatinine Ratio 14 Glucose Level 127 H 70-105 MG/DL Lactic Acid Level 1.54 0.50-2.00 MMOL/L Calcium Level 9.2 8.5-10.1 MG/DL Corrected Calcium 9.1 8.5-10.1 MG/DL Total Bilirubin 0.8 0.1-1.0 MG/DL Aspartate Amino Transf (AST/SGOT) 30 5-34 U/L Alanine Aminotransferase (ALT/SGPT) 17 0-55 U/L Alkaline Phosphatase 89 40-136 U/L Total Protein 7.0 6.4-8.2 GM/DL Albumin 4.1 3.2-4.5 GM/DL Procalcitonin 0.01 <0.10 NG/ML Thyroid Stimulating Hormone (TSH) 8.46 H 0.35-4.94 UIU/ML Urine Color YELLOW Urine Clarity CLEAR Urine pH 6.5 5-9 Urine Specific [place] 1.015 L 1.016-1.022 Urine Protein NEGATIVE NEGATIVE Urine Glucose (UA) NEGATIVE NEGATIVE Urine Ketones NEGATIVE NEGATIVE Urine Nitrite NEGATIVE NEGATIVE Urine Bilirubin NEGATIVE NEGATIVE Urine Urobilinogen 0.2 < = 1.0 MG/DL Urine Leukocyte Esterase NEGATIVE NEGATIVE Urine RBC (Auto) TRACE-I H NEGATIVE Urine RBC NONE /HPF Urine WBC 0-2 /HPF Urine Squamous Epithelial Cells NONE /HPF Urine Crystals NONE /LPF Urine Bacteria NEGATIVE /HPF Urine Casts NONE /LPF Urine Mucus NEGATIVE /LPF Urine Culture Indicated NO (LUZ BATEMAN MD) Micro Results Microbiology 02/04/22 Urine Culture - Final, Complete NO GROWTH 02/04/22 Blood Culture - Final, Complete No growth 02/04/22 Blood Culture - Final, Complete No growth (LUZ BATEMAN MD) Vital Signs/I&O Capillary Refill : (PATRICIA LANDIN APRN) Blood Pressure Mean: 116 ECG Initial ECG Impression Date: Feb 04, 2022 Initial ECG Impression Time: 17:24 Initial ECG Rate: 74 Initial ECG Rhythm: Normal Sinus Initial ECG Impression: 1st Degree AV Block (PATRICIA LANDIN APRN) Diagnostic Imaging Comments [facility], [place] NAME: LILI BE [facility] REC#: [id number] PT STATUS: REG ER : 1950 PHYSICIAN: PATRICIA LANDIN APRN ADMIT DATE: 02/04/22/ER Signed Date of Exam:02/04/22 CHEST 1 VIEW, AP/PA ONLY INDICATION: Sepsis. EXAMINATION: Portable chest at 5:42 PM. Heart size and pulmonary vascularity are normal. Lungs are clear. There are no effusions or pneumothoraces. IMPRESSION: Negative chest. Dictated by: Dictated on workstation # [id number] Dict: [id number] Trans: 02/04/221805 [facility] [id number] Interpreted by: ARIN MCDONALD MD Electronically signed by: ARIN MCDONALD MD 02/04/221805 Comments [facility] [place] NAME: LILI BE REC#: [id number] PT STATUS: REG ER : 1950 PHYSICIAN: PATIRCIA LANDIN APRN ADMIT DATE: 02/04/22/ER Signed Date of Exam:02/04/22 CT HEAD WO PROCEDURE: CT head without contrast. TECHNIQUE: Multiple contiguous axial images were obtained through the brain without the use of intravenous contrast. Auto Exposure Controls were utilized during the CT exam to meet ALARA standards for radiation dose reduction. INDICATION: Altered mental status. COMPARISON: CT head without contrast 08/02/2021. 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 No CT evidence of acute territorial infarction. No intracranial hemorrhage, mass effect, hydrocephalus or extra-axial fluid collection. Visualized paranasal sinuses and mastoids are clear. Osseous structures are intact. IMPRESSION: Stable exam. No acute intracranial CT finding. Dictated by: Dictated on workstation # [id number] Dict: 02/04/221808 Trans: 02/04/222011 [facility] [id number] Interpreted by: ELICIA LOWE MD Electronically signed by: ELICIA LOWE MD 02/04/222011 (PATRICIA LANDIN COMPUTATOR) Departure Impression Primary Impression: Bipolar disorder Additional Impressions: Anxiety Primary hypertension Disposition: 01 HOME, SELF-CARE Condition: Improved Departure-Patient Inst. Decision time for Depature: 21:36 (PATRICIA LANDIN APRN) Referrals: SUZE COOPER DO (PCP/Family) Primary Care Physician Patient Instructions: Bipolar Disorder (DC) Add. Discharge Instructions: Plan: 1. Have close follow up with mental health provider. 2. Discontinue Bactrim at this time. 3. Return to ER for any new, concerning, or worsening symptoms. 4. Follow up with Dr. Cooper, call office to schedule appointment. Dr. Jeremi Sorenson, PHD [address] [place] [address] All discharge instructions reviewed with patient and/or family. Voiced understanding. ATTENDING PHYSICIAN NOTE: I was physically present as attending physician in the emergency department during the care of this patient, but I was not directly involved in the decision making or delivery of care for this patient. (LUZ BATEMAN MD) Copy Copies To 1: SUZE COOPER STORMY D APRN Feb 04, 2022 16:54 LUZ BATEMAN MD Feb 12, 2022 07:37
[2022-02-04 17:04] LABS: BASOPHILS % (AUTO) 0 % (0-10); EOSINOPHILS # (AUTO) 0.1 10^3/uL (0.0-0.3); EOSINOPHILS % (AUTO) 1 % (0-10); HEMATOCRIT 33 % (35-52); HEMOGLOBIN 10.9 g/dL (11.5-16.0); LYMPHOCYTES # (AUTO) 0.8 10^3/uL (1.0-4.0); LYMPHOCYTES % (AUTO) 11 % (12-44); MEAN CORPUSCULAR HEMOGLOBIN 33 pg (25-34); MEAN CORPUSCULAR HGB CONC 33 g/dL (32-36); MEAN CORPUSCULAR VOLUME 98 fL (80-99); MEAN PLATELET VOLUME 9.3 fL (9.0-12.2); MONOCYTES # (AUTO) 0.4 10^3/uL (0.0-1.0); MONOCYTES % (AUTO) 6 % (0-12); NEUTROPHILS # (AUTO) 5.8 10^3/uL (1.8-7.8); NEUTROPHILS % (AUTO) 82 % (42-75); PLATELET COUNT 274 10^3/uL (130-400)
[2022-02-04 17:25] LABS: INR 1.2 (0.8-1.4); PROTHROMBIN TIME PATIENT 15.2 SEC (12.2-14.7)
[2022-02-04 17:27] LABS: ALBUMIN 4.1 GM/DL (3.2-4.5); POTASSIUM 4.3 MMOL/L (3.6-5.0)
[2022-02-04 17:28] LABS: CALCIUM 9.2 MG/DL (8.5-10.1)
[2022-02-04 17:31] LABS: BILIRUBIN,TOTAL 0.8 MG/DL (0.1-1.0)
[2022-02-04 17:33] LABS: CREATININE SERUM 1.03 MG/DL (0.60-1.30)
[2022-02-04] MEDS ORDERED: LIDOCAINE UROJET 2% GEL 10 ML PKG TOP ONE (17:45)
[2022-02-04 17:55] LABS: BILIRUBIN,URINE NEGATIVE (NEGATIVE); CLARITY,URINE CLEAR; COLOR,URINE YELLOW; GLUCOSE, URINE (UA) NEGATIVE (NEGATIVE); KETONES,URINE NEGATIVE (NEGATIVE); LEUKOCYTE ESTERASE ,URINE NEGATIVE (NEGATIVE); NITRITE,URINE NEGATIVE (NEGATIVE); PH,URINE 6.5 (5-9); PROTEIN,URINE NEGATIVE (NEGATIVE)
--- NOTE | 2022-02-04 17:57 | Diagnostic Imaging Report ---
INDICATION: Sepsis. EXAMINATION: Portable chest at 5:42 PM. Heart size and pulmonary vascularity are normal. Lungs are clear. There are no effusions or pneumothoraces. IMPRESSION: Negative chest. Dictated by: Dictated on workstation # [id number]
[2022-02-04 18:06] LABS: BACTERIA,URINE NEGATIVE /HPF; WBC,URINE 0-2 /HPF
--- NOTE | 2022-02-04 18:13 | Diagnostic Imaging Report ---
PROCEDURE: CT head without contrast. TECHNIQUE: Multiple contiguous axial images were obtained through the brain without the use of intravenous contrast. Auto Exposure Controls were utilized during the CT exam to meet ALARA standards for radiation dose reduction. INDICATION: Altered mental status. COMPARISON: CT head without contrast 08/02/2021. 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 No CT evidence of acute territorial infarction. No intracranial hemorrhage, mass effect, hydrocephalus or extra-axial fluid collection. Visualized paranasal sinuses and mastoids are clear. Osseous structures are intact. IMPRESSION: Stable exam. No acute intracranial CT finding. Dictated by: Dictated on workstation # [id number]
[2022-02-04] MEDS ORDERED: ALPRAZolam 1 MG (XANAX) TAB PO ONE (18:30)
[2022-02-04 22:19] VITALS: BP 155/59
== END 2022-02-04 22:19 | disposition home or self-care (01) ==
LOC: EDUNIT# 16:01 → ER 16:09
DX: F31.9 Bipolar disorder, unspecified (principal); F41.9 Anxiety disorder, unspecified; I10 Essential (primary) hypertension; N30.90 Cystitis, unspecified without hematuria; Z95.5 Presence of coronary angioplasty implant and graft
CPT/HCPCS: 36415; 51701; 70450; 71045; 80053; 81000; 83605; 84145; 84443; 85025; 85610; 85730; 87040; 87088; 93005

== ENCOUNTER → 2022-04-01 | Outpatient (RCR) | payer MEDICARE, OTHER | END | disposition still patient (30) | PROVIDERS: ATTEND Orthopaedic Surgery | DX: M75.02 Adhesive capsulitis of left shoulder (principal); S42.255 Nondisplaced fracture of greater tuberosity of left humerus ==

== ENCOUNTER 2022-04-14 10:53 | Outpatient (RCR) | payer MEDICARE, OTHER ==
[2022-04-19] MEDS ORDERED: CLON1PAT33 TD (06:45)
[2022-04-19] MEDS ORDERED: CITA40TA19 PO (06:45)
[2022-04-19] MEDS ORDERED: LOSA100T57 PO (06:45)
== END 2022-04-23 10:48 | disposition home or self-care (01) ==
PROVIDERS: ATTEND Orthopaedic Surgery
DX: M75.02 Adhesive capsulitis of left shoulder (principal); S42.255 Nondisplaced fracture of greater tuberosity of left humerus

== ENCOUNTER 2022-04-18 19:53 | Emergency (ER) | payer MEDICARE, OTHER ==
[~2022-04-18] VITALS: Ht 81 cm; Wt 81.6 kg
[2022-04-18 20:17] LABS: BASOPHILS % (AUTO) 0 % (0-10); EOSINOPHILS % (AUTO) 1 % (0-10); HEMATOCRIT 40 % (35-52); HEMOGLOBIN 13.7 g/dL (11.5-16.0); LYMPHOCYTES # (AUTO) 1.1 10^3/uL (1.0-4.0); LYMPHOCYTES % (AUTO) 12 % (12-44); MEAN CORPUSCULAR HEMOGLOBIN 32 pg (25-34); MEAN CORPUSCULAR HGB CONC 34 g/dL (32-36); MEAN CORPUSCULAR VOLUME 94 fL (80-99); MEAN PLATELET VOLUME 9.1 fL (9.0-12.2); MONOCYTES # (AUTO) 0.6 10^3/uL (0.0-1.0); MONOCYTES % (AUTO) 7 % (0-12); NEUTROPHILS # (AUTO) 7.1 10^3/uL (1.8-7.8); NEUTROPHILS % (AUTO) 80 % (42-75); PLATELET COUNT 300 10^3/uL (130-400); WHITE BLOOD COUNT 8.8 10^3/uL (4.3-11.0)
--- NOTE | 2022-04-18 20:23 | ED General ---
General Stated Complaint: AMS Source of Information: Patient (VERY LIMITED HISTORIAN), Old Records History of Present Illness Date Seen by Provider: Apr 18, 2022 Time Seen by Provider: 19:59 Initial Comments PT ARRIVES VIA POV--FAMILY BROUGHT HER HERE, BUT PT DOES NOT WANT TO BE SEEN, SO [place] [facility] WERE CALLED AND PT WAS PLACED IN POLICE PROTECTIVE CUSTODY AND MADE TO COME INTO ER FAMILY HAD REPORTED THAT PT IS CONFUSED, IS UNKNOWN WHEN THIS STARTED PT STATES "I AM SANE AND I AM NOT SICK" SHE ONLY STATES SHE IS HERE "BECAUSE I KEPT SAYING NO TO EVERYTHING" SHE IS UNABLE TO ELABORATE FURTHER SHE IS ORIENTED TO PERSON, PLACE, IS DISORIENTED TO YEAR-- AND IS UNCLEAR HOW ORIENTED SHE IS TO SITUATION. SHE KNOWS HER PRIMARY CARE DR. IS DR. COOPER SHE IS UNABLE TO STATE ANY OF HER MEDICAL CONDITIONS, WHAT MEDICATIONS SHE TAKES OR WHAT SHE TAKES THEM FOR OR WHEN SHE TOOK THEM PT DENIES FEELING SUICIDAL OR HOMICIDAL OR HAVING A PLAN SHE DOES NOT RECALL TELLING HER FAMILY SHE WANTED TO KILL HERSELF. FAMILY HAD REPORTED TO CENTRAL SCHEDULER, PRIOR TO CHECKING PT INTO ER THAT PT HAS BEEN CONFUSED ALL DAY, AND THAT SHE HAD SAID SHE WANTED TO KILL HERSELF POLICE HAVE BEEN DEALING WITH PT FOR MOST OF THE DAY TODAY ON LATER DISCUSSIONS WITH DAUGHTER AND SON ( HAS BEEN HOSPITALIZED HERE FOR THE LAST WEEK WITH "HEART AND LUNG PROBLEMS" , PER FAMILY) )( DAUGHTER IS A SURGEON, HERE VISITING FROM [place]) THEY REPORT THAT PT WOULD NOT GET OUT OF THE CAR TONIGHT, AND WAS JUST IN A "TRANCE LIKE STATE" AND POLICE WERE CALLED, AND THEN LATER SHE SAID SHE WANTED TO GO TO [facility] AND THEN THERE WAS SOME SORT OF A SCENE AT [facility] AND THE POLICE WERE CALLED TO [facility], AND THEY BROUGHT PT HERE AND SHE WOULD NOT GET OUT OF THE CAR, AND POLICE WERE CALLED BY FAMILY TO COME HERE TO ASSIST WITH PT. PT HAS REPEATEDLY REFUSED TO COME INTO ER, AND FAMILY STATE THAT THEY HAVE RECOR DED HER TELLING THEM SHE WAS GOING TO KILL HERSELF. THEY DO NOT HAVE DPOA PAPERS--THEY STATE THEY [facility], INCLUDING IN THE LAST WEEK, AND SHE HAS REPEATEDLY REFUSED. FAMILY HAS REQUESTED THAT POLICE TAKE HER INTO THEIR PROTECTIVE CUSTODY, AND TAKE PT INTO THE ER AND BE EVALUATED. ALL OF THIS BEHAVIOR IS CHRONIC FOR MANY YEARS. SHE HAS BEEN SEEN BY PSYCHIATRISTS FOR MANY YEARS, BUT DAUGHTER AND SON DO NOT BELIEVE THAT SHE IS COMPLIANT WITH FOLLOW UP APPOINTMENTS OR WITH TAKING HER MEDICATIONS THEY ALSO REPORT THAT THERE WERE PILLS SCATTERED ALL OVER THE FLOOR AT HER HOUSE TODAY. THEY BRING IN A FULL PILL BOTTLE OF BACTRIM THAT WAS PRESCRIBED ON 04/10/22 BY CONTRACT ATTORNEY AT URGENT CARE. THEY REPORT THAT SHE WILL NOT GO TO DR. COOPER AND GOES TO [facility]RGENT [facility] ALL THE TIME. PT HAS HISTORY OF SAME, AND HAS BEEN DX WITH UROSEPSIS IN THE PAST, LAST TIME SHE WAS SEEN HERE FOR THAT CONDITION WAS IN JANUARY. SHE ALSO HAS A HISTORY OF BIPOLAR DISORDER, IS UNKNOWN IF SHE HAS BEEN TAKING MEDICATIONS OR WHO SHE HAS BEEN SEEING FOR MENTAL HEALTH. SHE WAS POSSIBLY SEEING A PSYCHIATRIST IN [place], ACCORDING TO OLD RECORDS PCP: DR. COOPER Allergies and Home Medications Allergies Coded Allergies: celecoxib (Verified Allergy, Severe, TAKES ASPIRIN AT HOME, 10/19/18) SOA penicillin G (Verified Allergy, Mild, 10/19/18) HIVES divalproex sodium (Verified Allergy, Unknown, 10/19/18) JOINT PAIN, "GUMS BECOME LOSE AROUND TEETH" meperidine (Verified Allergy, Unknown, 10/19/18) LOSES CONTROL OF HANDS AND ARMS morphine (Verified Allergy, Unknown, 10/19/18) FLU LIKE SYMPTOMS ofloxacin (Verified Allergy, Unknown, 10/19/18) TACHYCARDIA promethazine (Verified Allergy, Unknown, 05/28/08) propoxyphene (Verified Allergy, Unknown, 10/19/18) LOSES CONTROL OF HANDS AND ARMS telavancin (Unverified Adverse Reaction, Severe, 10/19/18) SUICIDAL lamotrigine (Unverified Adverse Reaction, Intermediate, B[place]ERKS, 9) SUICIDAL amitriptyline (Verified Adverse Reaction, Mild, 10/19/18) LOSES CONTROL OF HANDS AND ARMS azithromycin (Verified Adverse Reaction, Mild, 10/19/18) FLU LIKE SYMPTOMS erythromycin base (Verified Adverse Reaction, Mild, 10/19/18) NAUSEA, VOMITING promethazine HCl (Unverified Adverse Reaction, Mild, 10/19/18) HALLUCINATIONS Patient Home Medication List Home Medication List Reviewed: Yes Aspirin (Aspirin EC) 81 Mg Tablet., 81 MG PO DAILY Prescribed by: SUZE COOPER on 08/14/21 06 Baclofen (Baclofen) 10 Mg Tablet, 20 MG PO TID, (Reported) Entered as Reported by: ALVIN GARVEY on 01/16/16 0838 Citalopram Hydrobromide (Celexa) 40 Mg Tablet, 40 MG PO DAILY, (Reported) Entered as Reported by: ALVIN GARVEY on 10/20/18 1034 Citalopram Hydrobromide (Celexa) 40 Mg Tablet, 40 MG PO DAILY Prescribed by: RICARDO HERNANDEZ on 04/19/22 0645 Clonidine (Clonidine TTS 1 Patch) 0.1 Mg/24 Hour Patch.tdwk, 1 PATCH TD Q7D Prescribed by: RICARDO EHRNANDEZ on 04/19/22 0645 Colestipol HCl (Colestid) 1 Gm Tab, 1 GM PO BID Prescribed by: SUZE COOPER on 08/14/21 06 Dicyclomine HCl (Dicyclomine HCl) 20 Mg Tablet, 20 MG PO QID, (Reported) Entered as Reported by: ALVIN GARVEY on 10/20/18 1034 Furosemide (Furosemide) 40 Mg Tablet, 40 MG PO DAILY, (Reported) Entered as Reported by: ALVIN GARVEY on 10/20/18 1034 Gabapentin (Gabapentin) 600 Mg Tablet, 1,200 MG PO TID, (Reported) Entered as Reported by: ALVIN GARVEY on 01/16/16 0821 Hydroxychloroquine Sulfate (Hydroxychloroquine Sulfate) 200 Mg Tablet, 200 MG PO BID, (Reported) Entered as Reported by: ALVIN GARVEY on 10/20/18 1034 Losartan Potassium (Losartan Potassium) 100 Mg Tablet, 100 MG PO DAILY Prescribed by: YAO ARREDONDO on 08/14/21 0857 Losartan Potassium (Losartan Potassium) 100 Mg Tablet, 100 MG PO DAILY Prescribed by: RICARDO HERNANDEZ on 04/19/22 0645 Metoprolol Succinate (Metoprolol Succinate) 200 Mg Tab.er.24h, 200 MG PO DAILY, (Reported) Entered as Reported by: ALVIN GARVEY on 10/20/18 1034 Metoprolol Succinate (Toprol Xl) 100 Mg Tab.er.24h, 100 MG PO HS Prescribed by: YAO ARREDONDO on 08/14/21 0857 Nitroglycerin (Nitroglycerin) 0.4 Mg Tab.subl, 0.4 MG SL UD PRN for CHEST PAIN, (Reported) Entered as Reported by: ANNE CURTIS on 01/10/19 0834 Pantoprazole Sodium (Pantoprazole Sodium) 40 Mg Tablet.dr, 40 MG PO DAILY, (Reported) Entered as Reported by: ELIF ALVAREZ on 08/04/21 1150 Potassium Chloride (K-Tab ER) 20 Meq Tablet.er, 20 MEQ PO DAILY, (Reported) Entered as Reported by: ALVIN GARVEY on 10/20/18 1034 Simvastatin (Simvastatin) 20 Mg Tablet, 20 MG PO HS, (Reported) Entered as Reported by: ALVIN GARVEY on 01/16/16 0821 Sulfamethoxazole/Trimethoprim (Bactrim Ds Tablet) 1 Each Tablet, 1 EA PO BID WITH MEALS Prescribed by: SUZE COOPER on 10/21/21 1824 Sulfasalazine (Azulfidine) 500 Mg Tablet, 1,500 MG PO BID, (Reported) Entered as Reported by: ALVIN GARVEY on 10/20/18 1034 Review of Systems Review of Systems Constitutional: no symptoms reported EENTM: no symptoms reported Respiratory: no symptoms reported Cardiovascular: no symptoms reported Gastrointestinal: no symptoms reported Genitourinary: no symptoms reported Musculoskeletal: no symptoms reported Skin: no symptoms reported Psychiatric/Neurological: See HPI Hematologic/Lymphatic: No Symptoms Reported Immunological/Allergic: no symptoms reported Past Nlgpsii-Wdyglt-Aratjt Hx Patient Social History Tobacco Use?: No Substance use?: No Alcohol Use?: No Immunizations Up To Date Tetanus Booster (TDap): Less than 5yrs PED Vaccines UTD: No First/Initial COVID19 Vaccinat: UTD Second COVID19 Vaccination Isaiah: UTD Seasonal Allergies Seasonal Allergies: No Past Medical History Surgery/Hospitalization HX: bilat carpel tunnel, coronary stent, , gallbladder, ppm, hernia repair afib, cad, htn, mi, high cholesterol, pvd, uti, arthritis, iddm Surgeries: Yes (ANGIOPLASTY; CARDIAC STENT ) Adenoidectomy, Appendectomy, Cardiac, Coronary Stent, Gallbladder, Orthopedic, Tonsillectomy Respiratory: No Cardiac: Yes (CARDIAC STENT X4, ANGIOPLASTY X 2; CAROTID DISEASE) Coronary Artery Disease, High Cholesterol, Hypertension Neurological: No Reproductive Disorders: Yes (unable to have children) 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: Menopausal UTI-Chronic Gastrointestinal: Yes (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 LR: CONCLUSIONS: 1. Mild coronary artery disease. 2. Patent stent in the ostial and proximal right coronary that was placed in [place] in 2006. 3. Mild to moderate elevation of left ventricular end-diastolic pressure (17 mmHg). 4. Normal global left ventricular systolic function with an ejection fraction approximately 60%. DISCUSSION AND RECOMMENDATIONS: Based on results of the study, it appears appropriate to continue a conservative approach. Risk factor modification was reviewed. Current regimen is being continued. Outpatient followup is advised. Physical Exam Vital Signs Vital Signs - First Documented 04/18/22 19:54 Temp 36.9 Pulse 67 Resp 20 B/P (MAP) 208/94 (132) Pulse Ox 98 O2 Delivery Room Air Capillary Refill : Height, Weight, BMI Height: 5'6.00" Weight: 175lbs. 0.0oz. 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 Norm as Tested; No Abnormal Gait, No Aphasia; Other (BEHAVIOR NOTED ABOVE) Skin: Normal Color, Warm/Dry Progress/Results/Core Measures Suspected Sepsis SIRS Temperature: Pulse: Respiratory Rate: Laboratory Tests 04/18/22 20:10: White Blood Count 8.8 Blood Pressure / Mean: Laboratory Tests 04/18/22 20:10: Creatinine 1.22, Platelet Count 300, Total Bilirubin 1.1H Results/Orders Lab Results Laboratory Tests Test 04/18/22 20:10 04/18/22 20:20 04/18/22 20:33 04/18/22 20:34 Range/Units White Blood Count 8.8 4.3-11.0 10^3/uL Red Blood Count 4.29 3.80-5.11 10^6/uL Hemoglobin 13.7 11.5-16.0 g/dL Hematocrit 40 35-52 % Mean Corpuscular Volume 94 80-99 fL Mean Corpuscular Hemoglobin 32 25-34 pg Mean Corpuscular Hemoglobin Concent 34 32-36 g/dL Red Cell Distribution Width 11.9 10.0-14.5 % Platelet Count 300 130-400 10^3/uL Mean Platelet Volume 9.1 9.0-12.2 fL Immature Granulocyte % (Auto) 0 % Neutrophils (%) (Auto) 80 H 42-75 % Lymphocytes (%) (Auto) 12 12-44 % Monocytes (%) (Auto) 7 0-12 % Eosinophils (%) (Auto) 1 0-10 % Basophils (%) (Auto) 0 0-10 % Neutrophils # (Auto) 7.1 1.8-7.8 10^3/uL Lymphocytes # (Auto) 1.1 1.0-4.0 10^3/uL Monocytes # (Auto) 0.6 0.0-1.0 10^3/uL Eosinophils # (Auto) 0.0 0.0-0.3 10^3/uL Basophils # (Auto) 0.0 0.0-0.1 10^3/uL Immature Granulocyte # (Auto) 0.0 0.0-0.1 10^3/uL Sodium Level 132 L 135-145 MMOL/L Potassium Level 4.0 3.6-5.0 MMOL/L Chloride Level 99 98-107 MMOL/L Carbon Dioxide Level 23 21-32 MMOL/L Anion Gap 10 5-14 MMOL/L Blood Urea Nitrogen 9 7-18 MG/DL Creatinine 1.22 0.60-1.30 MG/DL Estimat Glomerular Filtration Rate 48 BUN/Creatinine Ratio 7 Glucose Level 116 H 70-105 MG/DL Calcium Level 10.1 8.5-10.1 MG/DL Corrected Calcium 8.5-10.1 MG/DL Magnesium Level 2.2 1.6-2.4 MG/DL Total Bilirubin 1.1 H 0.1-1.0 MG/DL Aspartate Amino Transf (AST/SGOT) 32 5-34 U/L Alanine Aminotransferase (ALT/SGPT) 14 0-55 U/L Alkaline Phosphatase 98 40-136 U/L Total Protein 7.9 6.4-8.2 GM/DL Albumin 4.8 H 3.2-4.5 GM/DL Free Thyroxine 1.24 0.70-1.48 NG/DL TSH Beadle Testing 9.18 H 0.35-4.94 UIU/ML Salicylates Level < 5.0 L 5.0-20.0 MG/DL Acetaminophen Level < 10 L 10-30 UG/ML Serum Alcohol < 10 <10 MG/DL Urine Color YELLOW Urine Clarity CLEAR Urine pH 6.0 5-9 Urine Specific [place] 1.010 L 1.016-1.022 Urine Protein 1+ H NEGATIVE Urine Glucose (UA) NEGATIVE NEGATIVE Urine Ketones NEGATIVE NEGATIVE Urine Nitrite NEGATIVE NEGATIVE Urine Bilirubin NEGATIVE NEGATIVE Urine Urobilinogen 0.2 < = 1.0 MG/DL Urine Leukocyte Esterase NEGATIVE NEGATIVE Urine RBC (Auto) NEGATIVE NEGATIVE Urine RBC RARE /HPF Urine WBC 0-2 /HPF Urine Squamous Epithelial Cells NONE /HPF Urine Crystals NONE /LPF Urine Bacteria FEW H /HPF Urine Casts NONE /LPF Urine Mucus NEGATIVE /LPF Urine Culture Indicated YES Urine Opiates Screen NEGATIVE NEGATIVE Urine Oxycodone Screen NEGATIVE NEGATIVE Urine Methadone Screen NEGATIVE NEGATIVE Urine Propoxyphene Screen NEGATIVE NEGATIVE Urine Barbiturates Screen NEGATIVE NEGATIVE Ur Tricyclic Antidepressants Screen NEGATIVE NEGATIVE Urine Phencyclidine Screen NEGATIVE NEGATIVE Urine Amphetamines Screen NEGATIVE NEGATIVE Urine Methamphetamines Screen NEGATIVE NEGATIVE Urine Benzodiazepines Screen NEGATIVE NEGATIVE Urine Cocaine Screen NEGATIVE NEGATIVE Urine Cannabinoids Screen NEGATIVE NEGATIVE Influenza Type A (RT-PCR) Not Detected Not Detecte Influenza Type B (RT-PCR) Not Detected Not Detecte SARS-CoV-2 RNA (RT-PCR) Not Detected Not Detecte Ammonia 13 11-32 UMOL/L Micro Results Microbiology 04/18/22 Urine Culture - Final, Complete Mixed Bacterial Armida See Comments My Orders Orders - RICARDO HERNANDEZ DO Urinalysis (04/18/22 19:57) Thyroid Analyzer (04/18/22 19:57) Drug Screen Stat (Urine) (04/18/22 19:57) Cbc With Automated Diff (04/18/22 19:57) Comprehensive Metabolic Panel (04/18/22 19:57) Alcohol (04/18/22 19:57) Acetaminophen (04/18/22 19:57) Salicylate (04/18/22 19:57) Ekg Tracing (04/18/22 19:57) Monitor-Rhythm Ecg Trace Only (04/18/22 19:57) Accucheck Stat ONCE (04/18/22 19:57) Ed Iv/Invasive Line Start (04/18/22 19:57) Magnesium (04/18/22 19:57) Ct Head Wo-R/O Stroke (04/18/22 19:57) Chest 1 View, Ap/Pa Only (04/18/22 19:57) Covid 19 Inhouse Test (04/18/22 19:57) Influenza A And B By Pcr (04/18/22 19:57) Isolation Central Supply Req (04/18/22 19:57) Ammonia (04/18/22 20:21) Urine Culture (04/18/22 20:20) Free T4 (Free Thyroxine) (04/18/22 20:10) Hydralazine Injection (Apresoline Inject (04/18/22 23:15) Metoprolol Succinate (Xl) Tab (Toprol Xl (04/19/22 00:15) Losartan Tablet (Cozaar Tablet) (04/19/22 00:15) Hydralazine Injection (Apresoline Inject (04/19/22 04:00) Medications Given in ED Vital Signs/I&O 04/18/22 04/18/22 04/19/22 19:54 21:21 06:55 Temp 36.9 36.9 Pulse 67 62 64 Resp 20 14 B/P (MAP) 208/94 (132) 161/67 (98) 158/92 Pulse Ox 98 98 O2 Delivery Room Air Room Air Capillary Refill : Progress Note : Progress Note [employer] [place] [employer] CLAIMS SPECIALIST HERE WITH PT AT ALL TIMES, SHE IS CURRENTLY UNDER POLICE PROTECTIVE CUSTODY. OLD RECORDS WERE REVIEWED INCLUDING H&P'S, CONSULTATIONS, ANY PROCEDURES AND DISCHARGE SUMMARIES. HAVE GIVEN MEDICATIONS FOR BLOOD PRESSURE DURING ER STAY 2109--PT HAS BEEN CLEARED MEDICALLY, RN WILL CONTACT DESI CHOE FOR MENTAL HEALTH SCREEN 2227--SPOKE WITH DESI CHOE. PT IS NEXT TO BE EVALUATED 2302--SON IS NOW IN ROOM WITH PT AT HER REQUEST. DAUGHTER HAS LEFT THE ER AT THIS TIME. PT IS CALM AND COOPERATIVE. MULTIPLE CALLS HAVE BEEN MADE BY MYSELF, AND VARIOUS ER STAFF TO [facility], NO ANSWER MOST OF THE TIME. 0235--I CALLED [facility]. NO ANSWER 0248--I CALLED [facility]. NO ANSWER. 0316--I CALLED AND SPOKE WITH [facility]. THE SCREENER HAS JUST STARTED REVIEWING PT'S INFORMATION AND WILL BE DOING SCREEN SHORTLY. 032--MENTAL HEALTH SCREEN HAS BEGUN VIA TELE-VISIT. 517--ARRANGEMENTS ARE BEING MADE FOR PT TO GO HOME WITH SAFETY PLAN. DAUGHTER IS NOW HERE. SHE STATES SHE WENT TO PT'S HOME AND ORGANIZED ALL THE PILLS AT PT'S HOUSE, INCLUDING ALL THE ONES SCATTERED ALL OVER THE FLOOR. SHE STATES THERE IS NO LOSARTAN AND NO CELEXA, WHICH PT IS SUPPOSED TO BE TAKING. SHE ALSO NOTES THAT THERE WAS NO AMLODIPINE, BUT IT HAS NOT BEEN PRESCRIBED SINCE AUGUST SHE WAS MOST RECENTLY STARTED ON CLONIDINE PATCH, AND THERE IS NONE OF THAT EITHER. WILL WRITE PRESCRIPTIONS FOR THE LOSARTAN, CLONIDINE AND CELEXA. REVIEWED ALL INFORMATION WITH PT AND DAUGHTER, AND PT STATES SHE WILL GET OUT OF THE CAR WHEN THEY GET HOME. STRESSED THE IMPORTANCE OF FOLLOW UP WITH MENTAL HEALTH AND WITH DR. COOPER. ECG Initial ECG Impression Date: Apr 18, 2022 Initial ECG Impression Time: 20:08 Initial ECG Rate: 64 Initial ECG Rhythm: Normal Sinus Initial ECG Impression: Nonspecific Changes Diagnostic Imaging Comments CT HEAD--PER RADIOLOGIST REPORT AT 2037 FINDINGS: No intracranial hyperdense hemorrhage or space-occupying mass. No hydrocephalus or midline shift. Isbell-white matter differentiation is preserved. Stable periventricular hypoattenuation indicative of chronic microvascular ischemic change. No hyperdense vessel sign. No acute calvarial abnormality. Paranasal sinuses and mastoid air cells are clear. IMPRESSION: No acute intracranial process by CT. CXR--PER RADIOLOGIST REPORT AT 2037 Findings: No focal airspace disease in the visualized lungs. No pleural effusion or pneumothorax. Normal cardiomediastinal silhouette. Prominent skin fold overlies the right midlung. Impression: 1. No acute cardiopulmonary process by portable radiography. Reviewed: Reviewed by Me Departure Communication (Admissions) 2047--SPOKE WITH DR. COOPER, SHE KNOWS THE PT VERY WELL, AND PT'S CURRENT BEHAVIOR IS VERY TYPICAL OF PT, SHE CYCLES WITH THIS BEHAVIOR / BI-POLAR DISORDER AND IS KNOWN TO BE NON-COMPLIANT WITH HER MEDICATIONS. IF FAMILY HAS DPOA PAPERS, THEN MAY BE ABLE TO ADMIT TO [facility], BUT IF NO DPOA PAPERS AND PT IS NOT VOLUNTARY, SHE WILL NOT BE ABLE TO ADMIT THERE. WILL CALL HER BACK. 2102--SPOKE WITH DR. COOPER AGAIN. FAMILY DOES NOT HAVE DPOA PAPERS, THEREFORE CANNOT ADMIT TO [facility], PT IS NOT WILLING TO GO VOLUNTARILY. Impression Primary Impression: Bipolar disorder Additional Impressions: Altered mental status HTN (hypertension) Non-compliance Threatening suicide Disposition: HOME, SELF-CARE Condition: Stable Departure-Patient Inst. Decision time for Depature: 05:19 Referrals: SUZE COOPER DO (PCP/Family) Primary Care Physician Patient Instructions: High Blood Pressure ED, Suicide Prevention, Bipolar Disorder Add. Discharge Instructions: FOLLOW THE SAFETY PLAN THAT HAS BEEN ARRANGED BY MENTAL HEALTH TAKE ALL OF HOUR MEDICATIONS EXACTLY PRESCRIBED--DO NOT MISS DOSES OF MEDICATIONS FOLLOW UP WITH YOUR PSYCHIATRIST THIS WEEK FOR FURTHER CARE--CALL ON WEDNESDAY TO SCHEDULE AN APPOINTMENT FOLLOW UP WITH DR. COOPER THIS WEEK FOR FURTHER CARE--CALL ON WEDNESDAY TO SCHEDULE AN APPOINTMENT Scripts Losartan Potassium (Losartan Potassium) 100 Mg Tablet 100 MG PO DAILY, #30 TAB Prov: RICARDO HERNANDEZ DO 04/19/22 Clonidine (Clonidine TTS 1 Patch) 0.1 Mg/24 Hour Patch.tdwk 1 PATCH TD Q7D, #4 PATCH Prov: RICARDO HERNANDEZ DO 04/19/22 Citalopram Hydrobromide (Celexa) 40 Mg Tablet 40 MG PO DAILY, #30 TAB Prov: RICARDO HERNANDEZ DO 04/19/22 RICARDO HERNANDEZ DO Apr 18, 2022 20:23
[2022-04-18 20:27] LABS: BILIRUBIN,URINE NEGATIVE (NEGATIVE); CLARITY,URINE CLEAR; COLOR,URINE YELLOW; GLUCOSE, URINE (UA) NEGATIVE (NEGATIVE); KETONES,URINE NEGATIVE (NEGATIVE); LEUKOCYTE ESTERASE ,URINE NEGATIVE (NEGATIVE); NITRITE,URINE NEGATIVE (NEGATIVE); PROTEIN,URINE 1+ (NEGATIVE)
[2022-04-18 20:28] LABS: ALBUMIN 4.8 GM/DL (3.2-4.5); CHLORIDE 99 MMOL/L (98-107); SODIUM 132 MMOL/L (135-145)
[2022-04-18 20:30] LABS: CALCIUM 10.1 MG/DL (8.5-10.1)
[2022-04-18 20:31] LABS: GLUCOSE 116 MG/DL (70-105); TOTAL PROTEIN 7.9 GM/DL (6.4-8.2)
[2022-04-18 20:32] LABS: CARBON DIOXIDE 23 MMOL/L (21-32)
--- NOTE | 2022-04-18 20:32 | Diagnostic Imaging Report ---
PROCEDURE: CT head w/o r/o stroke. TECHNIQUE: Multiple contiguous axial images were obtained through the brain without the use of intravenous contrast. Auto Exposure Controls were utilized during the CT exam to meet ALARA standards for radiation dose reduction. INDICATION: Altered mental status. COMPARISON: 02/04/2022. FINDINGS: No intracranial hyperdense hemorrhage or space-occupying mass. No hydrocephalus or midline shift. Isbell-white matter differentiation is preserved. Stable periventricular hypoattenuation indicative of chronic microvascular ischemic change. No hyperdense vessel sign. No acute calvarial abnormality. Paranasal sinuses and mastoid air cells are clear. IMPRESSION: No acute intracranial process by CT. Dictated by: Dictated on workstation # [id number]
[2022-04-18 20:33] LABS: BILIRUBIN,TOTAL 1.1 MG/DL (0.1-1.0)
[2022-04-18 20:35] LABS: ALKALINE PHOSPHATASE 98 U/L (40-136); CREATININE SERUM 1.22 MG/DL (0.60-1.30); GFR ESTIMATED 48
[2022-04-18 20:36] LABS: ACETAMINOPHEN < 10 UG/ML (10-30); BUN/CREATININE RATIO 7
[2022-04-18 20:37] LABS: SALICYLATE < 5.0 MG/DL (5.0-20.0)
--- NOTE | 2022-04-18 20:37 | Diagnostic Imaging Report ---
CHEST 1 VIEW, AP/PA ONLY Indication: Altered mental status Comparison: None available. Findings: No focal airspace disease in the visualized lungs. No pleural effusion or pneumothorax. Normal cardiomediastinal silhouette. Prominent skin fold overlies the right midlung. Impression: 1. No acute cardiopulmonary process by portable radiography. Dictated by: Dictated on workstation # [id number]
[2022-04-18 20:38] LABS: ALANINE AMINOTRANSFERASE 14 U/L (0-55); MAGNESIUM 2.2 MG/DL (1.6-2.4)
[2022-04-18 20:39] LABS: BACTERIA,URINE FEW /HPF; RBC,URINE RARE /HPF; WBC,URINE 0-2 /HPF
[2022-04-18 20:46] LABS: AMPHETAMINE SCREEN, URINE NEGATIVE (NEGATIVE); BARBITURATE SCREEN URINE NEGATIVE (NEGATIVE); BENZODIAZEPINES SCREEN URINE NEGATIVE (NEGATIVE); CANNABINOID SCREEN, URINE NEGATIVE (NEGATIVE); COCAINE SCREEN URINE NEGATIVE (NEGATIVE); METHADONE STAT NEGATIVE (NEGATIVE); OPIATE SCREEN URINE NEGATIVE (NEGATIVE); OXYCODONE STAT NEGATIVE (NEGATIVE); PROPOXYPHENE STAT NEGATIVE (NEGATIVE); TRICYCLIC ANTIDEPRESSANTS SCRE NEGATIVE (NEGATIVE)
[2022-04-18 20:58] LABS: TSH (THYROID ANALYZER) 9.18 UIU/ML (0.35-4.94)
[2022-04-18 21:34] LABS: FREE T4 (FREE THYROXINE) 1.24 NG/DL (0.70-1.48)
[2022-04-18] MEDS ORDERED: hydrALAZINE (APESOLINE) 20 MG/ML VIAL IV ONE (23:15)
[2022-04-19] MEDS ORDERED: LOSARTAN 100 MG (COZAAR) TABLET PO ONE (00:15)
[2022-04-19] MEDS ORDERED: meTOprolol SUCCINATE 100 MG (TOPROL XL) TAB PO ONE (00:15)
[2022-04-19] MEDS ORDERED: hydrALAZINE (APESOLINE) 20 MG/ML VIAL IV ONE (04:00)
[2022-04-19] MEDS ORDERED: CITA40TA19 PO (06:45)
[2022-04-19] MEDS ORDERED: CLON1PAT33 TD (06:45)
[2022-04-19] MEDS ORDERED: LOSA100T57 PO (06:45)
[2022-04-19 06:55] VITALS: BP 158/92
== END 2022-04-19 06:55 | disposition home or self-care (01) ==
LOC: EDUNIT# 19:53 → ER 19:55
DX: F31.9 Bipolar disorder, unspecified (principal); R41.82 Altered mental status, unspecified; I10 Essential (primary) hypertension; T46.5X6A Underdosing of other antihypertensive drugs, initial encounter; Z91.14 Patient's other noncompliance with medication regimen; Z95.5 Presence of coronary angioplasty implant and graft; Z20.822 Contact with and (suspected) exposure to COVID-19
CPT/HCPCS: 70450; 71045; 80053; 80306; 81000; 82140; 83735; 84439; 84443; 85025; 87088; 87636; 93005; 96374; 96376; 99283; G0480 ×3; 36415; 80320; 80329

== ENCOUNTER → 2022-10-02 | Outpatient (CLI) | payer MEDICARE, OTHER ==
[~2022-10-02] MED LIST changes: +CLON1PAT33 TD
--- NOTE | 2022-10-05 09:22 | Diagnostic Imaging Report ---
INDICATION: Routine screening. Comparison is made with prior mammogram from 03/19/2020 and 10/01/2014. 2-D and 3-D bilateral screening mammography was performed with CAD. CAD is utilized. The current study was also evaluated with a Computer Aided Detection (CAD) system. Scattered fibroglandular densities are identified bilaterally. The parenchymal pattern is stable. Benign nodule upper outer left breast is stable. No new mass or malignant-appearing microcalcifications are seen. Axillae are unremarkable. IMPRESSION: BI-RADS Category 2 No mammographic features suspicious for malignancy are identified. ACR BI-RADS Category 2: Benign findings. Result letter will be mailed to the patient. Note: At least 10% of breast cancer is not imaged by mammography. Dictated by: Dictated on workstation # [id number]
== END ==
LOC: RAD 15:00
PROVIDERS: ATTEND Internal Medicine
DX: Z12.31 Encounter for screening mammogram for malignant neoplasm of breast (principal)
CPT/HCPCS: 77063; 77067

== ENCOUNTER → 2023-01-05 | Outpatient (CLI) | payer MEDICARE, OTHER ==
[~2023-01-05] MED LIST changes: +HYDR200T71 PO; -LOSA100T57 PO; +LOSA100T58 PO
--- NOTE | 2023-01-05 14:57 | Diagnostic Imaging Report ---
INDICATION: Postmenopausal state. COMPARISON: None available. FINDINGS: AP Spine L2-L4: [BMD (g/cm2): 1.169] [T-Score: -0.3] [Z-Score: 0.6] [BMD Previous: NA] [BMD % Change: NA] LT Hip Neck: [BMD (g/cm2): 0.872] [T-Score: -1.2] [Z-Score: 0.0] LT Hip Total: [BMD (g/cm2):0.940] [T-Score:-0.5] [Z-Score: 0.4] [BMD Previous: NA] [BMD % Change: NA] RT Hip Neck: [BMD (g/cm2):0.883] [T-Score:-1.1] [Z-Score:0.1] RT Hip Total: [BMD (g/cm2):0.941] [T-score:-0.5] [Z-Score:0.4] [BMD Previous:NA] [BMD % Change:NA] *Indicates significant change from prior examination based on 95% confidence level. World Health Organization criteria for BMD interpretation classify patients as Normal (T-score at or above -1.0), Osteopenic (T-score between -1.0 and -2.5) or Osteoporotic (T-score at or below -2.5). LIMITATIONS AND MODIFICATION: None. FRACTURE RISK (FRAX SCORE): The ten year probability of (%): Major Osteoporotic Fracture: [8.8] Hip Fracture: [1.1] IMPRESSION: 1. Osteopenia (Low bone mass). 2. Baseline examination. 3. See below National Osteoporosis Foundation guidelines on when to potentially initiate pharmacologic therapy. Based on the National Osteoporosis Foundation Guidelines, pharmacologic treatment should be initiated in any of the following, unless clinical conditions suggest otherwise: * Any patient with prior fragility fracture of the hip or vertebrae. A spine fracture indicates 5X risk for subsequent spine fracture and 2X risk for subsequent hip fracture. * Osteoporosis (T-score <-2.5). * Postmenopausal women and men age 50 and older with low bone mass/osteopenia (T-score between -1.0 and -2.5) by DXA and 10-year major osteoporotic fracture greater than 20% or a 10-year probability of hip fracture greater than 3%. These fracture risks are supplied above in the FRAX score, if applicable. * Clinician judgement and/or patient preferences may indicate treatment for people with 10-year fracture probabilities above or below these levels. Dictated by: Dictated on workstation # [id number]
== END ==
LOC: RAD 13:15
PROVIDERS: ATTEND Nurse Practitioner Family
DX: Z13.820 Encounter for screening for osteoporosis (principal); Z12.31 Encounter for screening mammogram for malignant neoplasm of breast; M85.851 Other specified disorders of bone density and structure, right thigh; M85.852 Other specified disorders of bone density and structure, left thigh; Z78.0 Asymptomatic menopausal state
CPT/HCPCS: 77080